=== PATIENT | male | born 1945 | race Caucasian/White ===

== ENCOUNTER 2017-03-20 13:47 | Inpatient (IN) | payer MEDICARE, OTHER ==
[2017-03-20] MEDS ORDERED: Propofol 1,000 MG/100 ML VIAL IV ONE (14:04)
[2017-03-20 14:10] LABS: Hematocrit 35.2 % (42.0-52.0); Mean Platelet Volume 8.4 fL (7.4-10.4); Red Blood Cell (RBC) Count 3.37 mill/uL (4.70-6.10); White Blood Cell (WBC) Count 20.6 thou/uL (4.8-10.8)
[2017-03-20 14:19] LABS: Bilirubin Small (Negative); Blood, Urine Trace (Negative); Glucose, Urine (Dipstick) 500 mg/dL (Negative); Ketone, Urine Negative (Negative); Nitrite Negative (Negative); Protein, Urine (Dipstick) Trace mg/dL (Neg-Trace); Urobilinogen 0.2 mg/dL (0.2-1.0)
[2017-03-20 14:22] LABS: Bacteria/HPF 4+ HPF (None Seen); Hyaline Casts/LPF 0-3 HYALINE CAST LPF (0-3 Hyaline); Squamous Epithelial None Seen HPF (0-3); WBC/HPF 0-3 HPF (0-3)
[2017-03-20 14:23] LABS: Lactic Acid - Sepsis 3.8 mmol/L (0.5-2.2)
[2017-03-20] MEDS ORDERED: Acetaminophen 650 MG Suppository ONE (14:30)
[2017-03-20] MEDS ORDERED: Furosemide 40 MG/4 ML VIAL ONE (14:30)
[2017-03-20 14:33] LABS: ALT (SGPT) 26 U/L (8-55); AST (SGOT) 65 U/L (5-34); Alkaline Phosphatase 146 U/L (40-150); Anion Gap 20 mmol/L (10-20); BUN (Urea Nitrogen) 59 mg/dL (8.4-25.7); Bilirubin, Total 0.8 mg/dL (0.2-1.2); CK (CPK) 3991 U/L (30-200); Calc. Creatinine Clearance 0 mL/min (70-130); Calcium 8.3 mg/dL (7.8-10.44); Carbon Dioxide 17 mmol/L (23-31); Chloride 102 mmol/L (98-107); Estimated GFR-MDRD 23; Globulin 2.9 g/dL (2.4-3.5); Protein, Total 6.3 g/dL (5.8-8.1)
[2017-03-20 14:34] LABS: Anisocytosis SLIGHT = 6-15 cells (100X) (0-5/hpf); Band 28 % (5-11); Macrocytosis SLIGHT = 6-15 cells (100X) (0-5/hpf); Metamyelocyte 9 % (0-0); Neutrophil 50 % (42-75); Polychromasia SLIGHT = 2-3 cells (100X) (0-2/hpf)
[2017-03-20 14:37] LABS: Troponin I 0.057 ng/mL (< 0.028)
[2017-03-20] MEDS ORDERED: Dextrose 50% Abboject 50 ML SYRINGE ONE (14:44)
[2017-03-20] MEDS ORDERED: Aspirin 300 MG Suppository ONE (14:44)
[2017-03-20] MEDS ORDERED: Insulin Regular 300 UNITS/3 ML VIAL ONE (14:44)
[2017-03-20 14:47] LABS: Oxyhemoglobin 86.9 % (94.0-97.0); Sodium 134 mmol/L (135-148)
[2017-03-20 14:50] LABS: Mechanical Tidal Volume 500 ml; Mode SIMV; Modified Allen's Test POSITIVE; Pressure Support 10 cmH2O; Vent YES
--- NOTE | 2017-03-20 14:50 | RAD ---
SUPINE PORTABLE CHEST ONE VIEW: History: 72-year-old male with dyspnea and difficulty breathing for two days. Comparison: 03-17-17 FINDINGS: Endotracheal tube is in satisfactory location in the distal trachea approximately 6 cm above the leve l of the tano. The NG tube has not yet passed into the stomach and probably needs to be advanced up to approximately 15 cm to completely enter the stomach with the side hole. There is a large right pl eural effusion which has developed since the prior study. There appears to be some minimal associated right sided volume loss. The left chest appears clear. IMPRESSION: Endotracheal tube with the tip approximately 6 cm from the tano. NG tube is in the distal esophagus and probably needs to be advanced approximately 15 cm for the side hole to completely enter the stom ach. Large right pleural effusion developing since 03-17-17. The left lung is clear without evidence for acute edema or evidence for congestive heart failure. Findings were discussed with patient's nurse in the ER at 2:25 p.m. Sheldon CHU POS: [facility]
[2017-03-20 15:00] LABS: PTT 31.6 SEC (22.9-36.1); Prothrombin Time 15.8 SEC (12.0-14.7)
[2017-03-20] MEDS ORDERED: cefTRIAXone\\ROCEPHIN 2 GM in Sodium Chloride 0.9% 100 ML IVPB ONE (15:00)
--- NOTE | 2017-03-20 15:33 | CT ---
CT OF THE HEAD WITHOUT CONTRAST: Date: 03-20-17 Comparison: 07-12-16 History: Altered mental status, difficulty breathing, lethargy. Technique: Serial axial CT imaging at 5 mm intervals from vertex through the skull base without contr ast. FINDINGS: The imaged paranasal sinuses/mastoid air cells are well aerated. There is no displaced calvarial frac ture. There is no intracranial hemorrhage, midline shift, mass effect or ventricular enlargement. IMPRESSION: No intracranial hemorrhage or displaced calvarial fracture. POS: [facility]
[2017-03-20] MEDS ORDERED: Sodium Bicarb 50 MEQ/50 ML Abboject 8.4% SYRINGE ONE (15:34)
[2017-03-20] MEDS ORDERED: Albuterol Sulfate 2.5 mg/3 ml Neb ONE (15:36)
[2017-03-20] MEDS ORDERED: Albuterol Sulfate 2.5 mg/0.5 ml Neb ONE (15:36)
[2017-03-20] MEDS ORDERED: Fentanyl 20 MCG/ML 250 ML ONE (15:55)
--- NOTE | 2017-03-20 15:56 | CT ---
NONCONTRAST ENHANCED CT IMAGES CHEST: History: Patient with tonsillectomy. Resection. Dyspnea. FINDINGS: Noncontrast enhanced CT of the chest demonstrates coronary artery calcifications. The nasogastric tub e is in place. Distal tip in the distal to midesophagus. This needs to be advanced approximately 10-1 5 cm to be in optimum position. There is extensive and near complete consolidation and partial collapse of the right lower lobe. The right middle lobe and right upper lobe are well aerated. The left lung is unremarkable. There appears to be an area of hyperdensity in the gallbladder neck compatible with gallstones with d iameter measuring approximately 7 mm. The liver and spleen are unremarkable. The pancreas is unremark able. IMPRESSION: 1. Gallstone seen in the gallbladder neck. 2. Complete consolidation and extensive collapse of the right lower lobe compatible with right lower lobe pneumonia. POS: [facility]
[2017-03-20] MEDS ORDERED: Acetaminophen 650 MG Suppository PR PRN (16:39)
[2017-03-20] MEDS ORDERED: Lacri-Lube Opth Oint 3.5 GM TUBE EA EYE PRN (16:39)
[2017-03-20] MEDS ORDERED: Sedation Protocol FS ONE (16:39)
[2017-03-20] MEDS ORDERED: Bisacodyl 10 MG SUPP PR PRN (16:39)
[2017-03-20] MEDS ORDERED: RENALLY ADJUST ABX IVPB PRN (16:54)
[2017-03-20] MEDS ORDERED: Fentanyl 20 MCG/ML 250 ML IVPB SCH (17:01)
[2017-03-20] MEDS ORDERED: DISCONTINUE PREVIOUS NARCOTIC PAIN MEDICATIONS AND BENZODIAZEPINES FS SCH (17:01)
[2017-03-20] MEDS ORDERED: Lorazepam 2 MG/ML VIAL SLOW IVP PRN (17:01)
--- NOTE | 2017-03-20 17:11 | HP ---
DATE OF ADMISSION: 03/20/2017 PRIMARY CARE PHYSICIAN: Tejas Maxwell D.O. CODE STATUS: FULL CODE. SURROGATE DECISION-MAKER: The patient makes his own decision with the help of his spouse. CHIEF COMPLAINT: Lethargy. HISTORY OF PRESENT ILLNESS: The patient is a 72-year-old male with coronary artery disease, diabetes mellitus type 2, peripheral vascular disease, chronic pain syndrome, and COPD, who was brought into the emergency room with above complaints. Three days ago, the patient developed pain in the right lower rib cage that started after sneezing. The pain progressively got worse. Over the last 24-48 hours, the patient has been lethargic and not eating well. He also developed shortness of breath along with wheezing. At this time, the patient i s intubated and sedated on mechanical ventilation. History was obtained from the family at the [facility]. There was no fever or chills reported. He has some intermittent cough with scanty production. No recent immobilization, travel reported. In the emergency room, his initial vital signs showed temperature of 100.6 with respiration of 36, pu lse rate of 94, blood pressure of 164/59 with O2 saturation of 87% on room air. After O2 supplementa tion, his O2 sats continued to drop to 79%. He was subsequently intubated and placed on mechanical v entilation. His chest x-ray showed right-sided pleural effusion. He underwent a CT angiogram of the chest that showed right-sided pneumonia along with pleural effusion. He received 40 mg IV Lasix wit h IV fluids, insulin, D50, ceftriaxone. Initially, it was thought that the patient has congestive he art failure that is why he received Lasix per ER physician. PAST MEDICAL HISTORY: 1. Diabetes mellitus type 2. 2. Hyperlipidemia. 3. Coronary artery disease, status post myocardial infarction. 4. Peripheral vascular disease. 5. Carotid artery disease. 6. History of multiple sclerosis. 7. Hyperlipidemia. 8. Chronic pain syndrome. 9. Chronic obstructive pulmonary disease. 10. Hypertension. 11. Hyperlipidemia. 12. Benign prostatic hypertrophy. 13. 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 14. Depression. PAST SURGICAL HISTORY: 1. Femoral popliteal bypass in 2015. 2. Stent placement for peripheral arterial disease in 2009. 3. Left carotid endarterectomy. 4. Colon resection. 5. Tonsillectomy. 6. 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 7. Partial colectomy. 8. Left hip replacement. 9. Spine stimulator that was later removed secondary to not working. 10. Esophageal dilatation. 11. Carotid surgery earlier this year. ALLERGIES: No known drug allergies. CURRENT HOME MEDICATIONS: According to his clinic note: 1. Aspirin 325 mg twice a day. 2. Vitamin D3 2000 units daily. 3. Cymbalta 60 mg daily. 4. Glimepiride 4 mg twice a day. 5. Metformin 1000 mg b.i.d. 6. Actos 30 mg daily. 7. Plavix 75 mg daily. 8. Flomax 0.4 mg twice a day. 9. Lipitor 40 mg daily. SOCIAL HISTORY: The patient currently lives at home with his family. Ambulates with the help of a w alker. The patient is currently retired. Has a history of smoking. No alcohol or drug use. FAMILY HISTORY: Diabetes and stroke runs in his family. REVIEW OF SYSTEMS: Cannot be obtained from the patient due to current cognitive status. PHYSICAL EXAMINATION: VITAL SIGNS: As discussed above. GENERAL: A 72-year-old male, intubated and sedated on mechanical ventilation. HEENT: Head, atraumatic, normocephalic. Sclerae are anicteric. Dry mucous membranes. No oral lesi on. NECK: Supple, no JVD appreciated. No carotid bruit. LUNGS: Showed decreased air entry at the right half of the lung with crackles. No wheezing on the l eft side. There were scattered rhonchi on the right. Symmetrical. HEART: S1, S2 present, regular, 2/6 systolic murmur over the mitral area. No heaves or pulsation. ABDOMEN: Soft, bowel sounds present, no rebound, guarding, no costovertebral angle tenderness. EXTREMITIES: 2+ edema in bilateral lower extremities. SKIN: Warm and dry. LYMPH NODES: No palpable lymph nodes in the neck. PERIPHERAL VASCULAR: Radial pulses palpable bilaterally. MUSCULOSKELETAL: No joint swelling or tenderness. NEUROLOGIC/PSYCHIATRIC: Cannot assess due to current cognitive status. LABORATORY AND X-RAY FINDINGS: 1. CBC showed WBC 20.6 with hemoglobin 11.4, hematocrit 35.2, platelets 217. 2. INR 1.2. 3. Blood gases showed pH 7.25 with pCO2 of 51.5, pO2 of 68.9, with O2 saturation 89.7% on mechanical ventilation. 4. Chemistries showed sodium 133, potassium 6.2, chloride 102, bicarbonate 17, BUN 59, creatinine 2. 7, glucose of 407. 5. CK was 3991. BNP was 232. Troponin was 0.057. Lactic acid 3.8. Urinalysis showed 4+ bacteria without any wbc's. 6. EKG by my review showed sinus rhythm with incomplete right bundle branch block, nonspecific ST-T wave changes. CT scan of the brain was negative. Chest x-ray by my review as discussed above. CT s can of the chest has been done, official report pending at this time. IMPRESSION: 1. Acute hypoxic respiratory failure. 2. Toxic metabolic encephalopathy. 3. Community-acquired pneumonia with pleural effusion, rule out hemothorax. 4. Metabolic acidosis/lactic acidosis. 5. Acute kidney injury on chronic kidney disease stage 2. 6. Hyperkalemia secondary to acute kidney injury with metabolic acidosis. 7. Rhabdomyolysis. 8. Abnormal troponins, probably secondary to demand ischemia. 9. Severe sepsis with acute organ dysfunction secondary to pneumonia. 10. Hyponatremia, probably secondary to hyperglycemia. 11. Peripheral vascular disease. 12. Diabetes mellitus type 2. 13. Hypertension. 14. Anxiety/depression. 15. Peripheral neuropathy. 16. Chronic pain syndrome. 17. Hyperlipidemia. 18. Gastroesophageal reflux disease. 19. Coronary artery disease. 20. Peripheral vascular disease. 21. Carotid artery disease. 22. Benign prostatic hypertrophy. 23. Chronic obstructive pulmonary disease. PLAN: 1. The patient will be monitored in the intensive care unit setting. Antiplatelet will be held for possible hemothorax. We will monitor the H&H closely. He will be placed on broad-spectrum antibioti cs. Blood cultures have been sent. Critical Care, Dr. Sanderson, has been notified. His blood pressu re is controlled at this time. If he develops hypotensive, we will consider stress dose steroids. V entilation sedation protocol. 2. Deep venous thrombosis prophylaxis. We will avoid SCDs due to peripheral vascular disease. We w ill also avoid heparin or Lovenox due to suspected hemothorax. The patient will also need Speech The rapy consult to rule out swallowing difficulty once extubated. He is currently on regular consistenc y diet with some intermittent choking-like sensation according to the family at the bedside. The pat ient will require 3-4 days for stabilization.
[2017-03-20 17:43] LABS: Hematocrit 31.1 % (42.0-52.0)
[2017-03-20] MEDS: Piperacillin/Tazobactam 2.25 GM in Sodium Chloride 0.9% 100 ML IVPB SCH ×2 (18:25→23:44)
[2017-03-20 18:41] LABS: Anion Gap 19 mmol/L (10-20); BUN (Urea Nitrogen) 62 mg/dL (8.4-25.7); BUN/Creatinine Ratio 23.31; Calc. Creatinine Clearance 34 mL/min (70-130); Calcium 7.9 mg/dL (7.8-10.44); Carbon Dioxide 19 mmol/L (23-31); Chloride 101 mmol/L (98-107); Estimated GFR-MDRD 24; Magnesium 2.3 mg/dL (1.6-2.6); Phosphorus 7.2 mg/dL (2.3-4.7)
[2017-03-20 18:47] LABS: Troponin I 0.073 ng/mL (< 0.028)
[2017-03-20] MEDS: Azithromycin 500 MG in Sodium Chloride 0.9% 250 ML 250 ML IVPB SCH (19:13)
[2017-03-20] MEDS ORDERED: Diprivan 20 ML ONE (19:26)
[2017-03-20] MEDS: Sodium Bicarbonate 50 MEQ in Sodium Chloride 0.45% 1,000 ML IV SCH (19:42)
[2017-03-20] MEDS: Propofol 1,000 MG/100 ML VIAL IV PRN (19:43)
[2017-03-20] MEDS: Insulin Regular 300 UNITS/3 ML VIAL SC PRN ×2 (19:58→23:40)
[2017-03-20 21:08] LABS: Hematocrit 30.2 % (42.0-52.0)
[2017-03-20] MEDS: Famotidine/PF 20 mg/2ml Vial SLOW IVP SCH (21:27)
[2017-03-20 21:32] LABS: Troponin I 0.059 ng/mL (< 0.028)
--- NOTE | 2017-03-20 21:53 | CON ---
DATE OF CONSULTATION: 03/20/2017 SERVICE: Pulmonary Medicine. REASON FOR CONSULTATION: Respiratory failure. HISTORY OF PRESENT ILLNESS: The patient is a 72-year-old white male. He was in his usual state of h ealth until roughly 3 days ago at which point he had a sneezing event. With this sneeze, he had an a brupt onset of very sharp chest discomfort. It was in nature. He came to the emergency depart ment thinking that he broke his rib. He had a chest x-ray at that time which really was fairly unrem arkable. He went back home with conservative management. He had exquisite tenderness over the site. It prevented him from taking a deep breath. He could not lie in his right side and he had difficult ies lying on his back. Two days ago, he started having increasing dyspnea with exertion. He had luli e low-grade temperatures. One day prior to admission, these symptoms progressed. This morning, he w as found essentially gurgling his secretions. He is completely obtunded and nonresponsive. He was b rought to the emergency department. He had purulent material in his posterior oropharynx. He was wiley bsequently intubated. No sedation medications have been provided so far because he simply has not ne eded anything yet. He cannot provide any additional elements of the history. His is at bedside and she was able to relay this to me. PAST MEDICAL HISTORY: 1. Type 2 diabetes mellitus. 2. Multiple sclerosis. 3. Dyslipidemia. 4. Peripheral vascular disease. 5. Carotid arterial disease. 6. Opioid abuse, history of. PAST SURGICAL HISTORY: 1. Left carotid endarterectomy in 2010. 2. Redo left carotid endarterectomy. 3. Left femoral vein bypass. 4. Percutaneous coronary intervention. FAMILY HISTORY: Noncontributory. SOCIAL HISTORY: Up until recently, he was smoking on a daily basis. He does use alcohol occasionall y. His denies any street drugs on his behalf. He has not had any significant asbestos exposure s. ALLERGIES: No known drug allergies. MEDICATIONS: List of his inpatient medications was reviewed. Multiple small updates were made. REVIEW OF SYSTEMS: Cannot be obtained as the patient is currently intubated and sedated. PHYSICAL EXAMINATION: VITAL SIGNS: Afebrile, pulse 75, respirations 21, saturation 98% on 60% FiO2. GENERAL: The patient is intubated and sedated. HEENT: Normocephalic, atraumatic. Sclerae are white, conjunctivae pink. Oral and nasal mucosa mois t without lesions. LUNGS: Decent air entry. There is a slightly prolonged expiratory phase. Rhonchi are present in th e right side. No wheezing is appreciated. HEART: Normal rate, regular. ABDOMEN: Soft, nontender, nondistended. Bowel sounds positive. MUSCULOSKELETAL: No cyanosis or clubbing. There is no pitting in the bilateral lower extremities. NEUROLOGIC: Grossly nonfocal. LABORATORY DATA: WBC 20.6, hemoglobin 11.4, platelets were 217,000. Band counts are 28%. INR 1.2. PH 7.25, pCO2 52, pO2 68.9. FIO2 is 55% on this ABG. Creatinine 2.70. BUN 59, bicarbonate 17 with an anion gap of 20. Potassium 6.2. Liver function studies are unremarkable. CK 3900. BNP 232. T roponin 0.057. Lactate is 3.8. Urinalysis is unremarkable. IMAGIN. Chest x-ray from three days ago demonstrates no acute cardiopulmonary abnormality. 2. Chest x-ray from today demonstrates large pleural effusion on the right side with an apparent lay ering effusion on top of that giving an increased density to the right lung. The left lung looks to be relatively spared. 3. CT of the brain demonstrates no acute intracranial abnormality. 4. CT of the chest demonstrates gallstone in the neck of the gallbladder. There is a complete conso lidation of the posterior segment of the right upper lobe, lateral segment of the right middle lobe, and the entirety of the right lower lobe. There is some degree of effusion there. The effusion appe ars to have an increased density to it over just a simple effusion. There is some loculation to this already. ASSESSMENT: 1. Acute hypoxic respiratory failure. 2. Severe sepsis. 3. Community-acquired pneumonia. 4. Acute kidney injury. 5. Hyperkalemia. 6. Anion gap metabolic acidosis. 7. History of opiate abuse. PLAN: We will provide the patient with a little bit of sedation. Antibiotics will be given to the p atient to cover both community-acquired and aspiration related organisms. I have already talked to Jovita Carpio about initiating Zosyn and azithromycin. There appear to be loculations present. He is on b oth aspirin and Plavix. As such, I am a little hesitant to perform a thoracentesis presently. It ma y confirm my suspicion that empyema is present, but I certainly would not be able to prevent one from setting in at this time. Supportive ventilator will be continued. We will get a daily chest x-ray for the time being. If this effusion continues to increase, thoracentesis will be performed sooner t ravi later. Otherwise, I agree with her current supportive care. I would hold off antiplatelet thera py for the time being. CRITICAL CARE TIME: 45 minutes.
[2017-03-20] MEDS ORDERED: Piperacillin/Tazobactam 3.375 GM in Sodium Chloride 0.9% 100 ML IVPB SCH (22:00)
[2017-03-21] MEDS: Sodium Bicarbonate 50 MEQ in Sodium Chloride 0.45% 1,000 ML IV SCH ×3 (01:54→20:11)
[2017-03-21] MEDS: Propofol 1,000 MG/100 ML VIAL IV PRN ×2 (01:54→16:12)
[2017-03-21] MEDS: Insulin Regular 300 UNITS/3 ML VIAL SC PRN ×5 (04:06→20:31)
[2017-03-21] MEDS: Piperacillin/Tazobactam 2.25 GM in Sodium Chloride 0.9% 100 ML IVPB SCH ×3 (05:40→18:25)
[2017-03-21 06:00] LABS: Band 47 % (5-11); Hematocrit 28.2 % (42.0-52.0); Neutrophil 44 % (42-75); White Blood Cell (WBC) Count 11.8 thou/uL (4.8-10.8)
[2017-03-21 06:08] LABS: CK (CPK) 6321 U/L (30-200)
[2017-03-21 06:29] LABS: Anion Gap 15 mmol/L (10-20); BUN (Urea Nitrogen) 64 mg/dL (8.4-25.7); BUN/Creatinine Ratio 28.32; Calc. Creatinine Clearance 39 mL/min (70-130); Calcium 7.7 mg/dL (7.8-10.44); Carbon Dioxide 22 mmol/L (23-31); Chloride 103 mmol/L (98-107); Estimated GFR-MDRD 29; Phosphorus 4.5 mg/dL (2.3-4.7)
[2017-03-21 07:40] LABS: Oxyhemoglobin 91.1 % (94.0-97.0); Sodium 135 mmol/L (135-148)
[2017-03-21 08:16] LABS: Mechanical Tidal Volume 500 ml; Mode PSIMV; Modified Allen's Test POSITIVE; Pressure Support 10 cmH2O; Vent YES
--- NOTE | 2017-03-21 08:35 | ULT ---
GALLBLADDER ULTRASOUND: History: Evaluate for cholecystitis. Abnormal chest CT. Comparison: None. Correlation: Chest CT 03-20-17. Technique: Utilizing multihertz transducer, sonographic imaging of the right upper quadrant was perfo rmed. FINDINGS: Limited evaluation of the pancreas due to bowel gas. Hepatic parenchyma has a normal echotexture. No hepatic masses or intrahepatic dilatation. The contou r of the hepatic margin is maintained. Right hepatic lobe measures 17.8 cm. There are multiple echogenic foci with posterior acoustic shadowing in the neck of the gallbladder, c ompatible with gallstones. Small amount of sludge is noted. Gallbladder wall this not thickened. No p ericholecystic fluid. Phan's sign cannot be interrogated due to patient being intubated. Limited evaluation of the right kidney. Lower pole is obscured. Grossly, no hydronephrosis. Common bile duct is poorly defined. IMPRESSION: Sonographic evidence of cholelithiasis without evidence of cholecystitis. POS: [facility]
--- NOTE | 2017-03-21 09:23 | RAD ---
SEMIURIGHT FRONTAL CHEST RADIOGRAPH: DATE: 03/21/17. COMPARISON: 03/20/17. HISTORY: Intubated CCU patient. FINDINGS: Endotracheal tube terminates over the tracheal air column just below the level of the clavicular head s. There is a nasogastric tube in place. As seen on the prior examination, the nasogastric tube does no t appear to extend beyond the mid portion of the chest. It was noted on the radiograph dictated on 05/20/16 at approximately 2:10 p.m. that this nasogastric tube [facility]. The nasogastric tube appears to be redundant overlying the neck suggesting it is curling in the upper aerodigestive tract at the level of the neck. The right lung appears clear. There is hazy increased density within the left hemithorax, primarily involving the right lung base, evidence of a right-sided pleural effusion and associated basilar pare nchymal opacity. IMPRESSION: 1. Nasogastric tube is in a stable position, distal tip in the expected location of the mid thoracic esophagus. Again, this should be advanced. 2. Stable right basilar pleural and parenchymal opacity. POS: [facility]
[2017-03-21] MEDS: NPH, Human Insulin Isophane 300 UNIT/3 ML VIAL SC SCH (10:02)
[2017-03-21 11:07] LABS: Hemoglobin A1c 7.8 % (4.0-6.0)
[2017-03-21] MEDS: Acetaminophen 650 MG/20.3 ML UDCUP PO PRN (12:38)
--- NOTE | 2017-03-21 14:11 | PDOC.PN ---
- Subjective Encounter Start Date: 03/21/17 Encounter Start Time: 10:00 -: non-verbal Patient seen and examined. On [facility] Vent. No overnight events - Objective MAR Reviewed: Yes Vital Signs & Weight: Vital Signs (12 hours) Temp Pulse Resp BP Pulse Ox 03/21/17 14:00 7 L 03/21/17 13:00 100.8 F H 03/21/17 12:00 101 F H 13 03/21/17 10:47 102 H 143/59 H 03/21/17 10:46 100 11 L 96 03/21/17 10:00 13 03/21/17 08:00 100.3 F H 102 H 22 H 96 03/21/17 07:00 100.3 F H 03/21/17 06:47 92 114/51 L 03/21/17 06:46 94 22 H 95 03/21/17 06:00 21 H 03/21/17 04:00 98.7 F 21 H 03/21/17 02:29 87 120/41 L Weight Admit Weight 211 lb Weight 215 lb Most Recent Monitor Data Heart Rate from ECG 101 NIBP 140/53 NIBP BP-Mean 81 Respiration from ECG 13 SpO2 95 I&O: 03/20/17 03/21/17 03/22/17 06:59 06:59 06:59 Intake Total 2109 30.8 Output Total 1380 640 Balance 729 -609.2 Result Diagrams: 03/22/17 04:14 03/22/17 04:14 Additional Labs: Accuchecks 03/21/17 03/21/17 03/21/17 12:54 08:47 03:58 POC Glucose 302 H 370 H 468 H 03/20/17 03/20/17 23:38 19:54 POC Glucose 538 H 524 H Radiology Reviewed by me: Yes (CR - infiltrate at bases) EKG Reviewed by me: Yes (Tele SR) Phys Exam - Physical Examination Patient on [facility] vent - sedation dced Neck: no nodes, no JVD Respiratory: no wheezing Bibasilar rales R>L, Symmetrical. Scat rhonchi Cardiovascular: RRR, no rub Gastrointestinal: soft, non-tender, no distention, positive bowel sounds hanna + Musculoskeletal: edema present (! +) Neuro/Psych - cannot assess due to sedation Dx/Plan - Plan cont current plan of care, plan discussed w/ family, hanna catheter, continue antibiotics, DVT proph w/SCDs IMPRESSION: 1. Acute hypoxic respiratory failure. on Mech Vent 2. Toxic metabolic encephalopathy. 3. Community-acquired pneumonia with pleural effusion, rule out hemothorax. 4. Metabolic acidosis/lactic acidosis. 5. Acute kidney injury on chronic kidney disease stage 2. improving. 6. Hyperkalemia secondary to acute kidney injury with metabolic acidosis. improving. 7. Rhabdomyolysis. CK worsening 8. Abnormal troponins, probably secondary to demand ischemia. 9. Severe sepsis with acute organ dysfunction secondary to pneumonia. 10. Hyponatremia, probably secondary to hyperglycemia. 11. Peripheral vascular disease. 12. Diabetes mellitus type 2. 13. Hypertension. 14. Anxiety/depression. 15. Peripheral neuropathy. 16. Chronic pain syndrome. 17. Hyperlipidemia. 18. Gastroesophageal reflux disease. 19. Coronary artery disease. 20. Peripheral vascular disease with stent 21. Carotid artery disease with stent 22. Benign prostatic hypertrophy. 23. Chronic obstructive pulmonary disease. 24. PLAN: * Cont supportive care * Resume ASA/Plavix if ok with Critical care (?Hemothorax) * AM labs including CK * Cont Atbx * Critical care following * Cont current IV fluids * Cont current meds as below * Sedation protocol Review of Systems - Review of Systems Other: Cannot obtain due to sedation - Medications/Allergies Allergies/Adverse Reactions: Allergies Allergy/AdvReac Type Severity Reaction Status Date / Time No Known Allergies Allergy Verified 08/08/16 08:56 Medications: Current Medications Acetaminophen (Tylenol) 650 mg DC Q6H PRN PRN Reason: Fever > 101 or Mild Pain Acetaminophen (Tylenol Elixir) 650 mg PO Q6H PRN PRN Reason: Fever > 101 or Mild Pain Last Admin: 03/21/17 12:38 Dose: 650 mg Albuterol/Ipratropium (Duoneb) 3 ml NEB [id number] MIKE Last Admin: 03/21/17 10:46 Dose: 3 ml Albuterol/Ipratropium (Duoneb) 3 ml NEB [id number] PRN PRN Reason: SOB &/or Wheezing Bisacodyl (Dulcolax) 10 mg DC DAILYPRN PRN PRN Reason: Constipation Famotidine (Pepcid) 20 mg SLOW IVP Q24HR MIKE Last Admin: 03/20/17 21:27 Dose: 20 mg Azithromycin 500 mg/ Sodium (Chloride) 250 mls @ 250 mls/hr IVPB 1700 MIKE Last Admin: 03/20/17 19:13 Dose: 250 mls Vancomycin HCl 1 gm/ Device 200 mls @ 200 mls/hr IVPB 1500 MIKE Fentanyl (Fentanyl Cadd) 250 mls @ 0 mls/hr IVPB INF MIKE; Titrate PRN Reason: Protocol Stop: 04/19/17 17:01 Fentanyl Citrate (Fentanyl Bolus) 250 mls @ 0 mls/hr IVPB PRN PRN; As Directed PRN Reason: VENTILATION SEDATION PROTOCOL Stop: 04/19/17 17:01 Sodium Bicarbonate 50 meq/ (Sodium Chloride) 1,050 mls @ 150 mls/hr IV .Q7H [facility] Last Admin: 03/21/17 11:35 Dose: 1,050 mls Piperacillin Sod/Tazobactam (Sod 2.25 gm/ Sodium Chloride) 100 mls @ 200 mls/ hr IVPB Q6HR [facility] Last Admin: 03/21/17 12:38 Dose: 100 mls Insulin Human NPH (Humulin N) 10 unit SC DAILY [facility] Last Admin: 03/21/17 10:02 Dose: 10 unit Insulin Human NPH (Humulin N) 10 unit SC QPM [facility] Insulin Human Regular (Humulin R) 0 units SC .MODERATE SLIDING SC PRN PRN Reason: Moderate Correctional Scale Lactulose (Lactulose) 20 gm PO DAILYPRN PRN PRN Reason: Constipation Lorazepam (Ativan) 2 mg SLOW IVP Q2H PRN PRN Reason: Anxiety to achieve Griffiths 2-3 Stop: 04/19/17 17:01 Mineral Oil/White Petrolatum (Lacri-Lube Ointment) 0 gm EA EYE PRN PRN PRN Reason: Dry Eyes Miscellaneous Medication (Pharmacy To Dose) 1 each IVPB PRN PRN PRN Reason: Pharmacy to dose Morphine Sulfate (Morphine) 2 mg IVP Q2H PRN PRN Reason: TO ACHIEVE SALVATORE SCORE 2-3 Stop: 04/19/17 17:01 Discontinue Previous Narcotic Pain Medications And Benzodiazepines 1 each FS .ONE [facility] Stop: 04/19/17 17:01 Ondansetron HCl (Zofran) 4 mg IVP Q6H PRN PRN Reason: Nausea/Vomiting Propofol (Diprivan) 1,000 mg IV INF PRN; Protocol PRN Reason: TO ACHIEVE GRIFFITHS SCORE 2-3 Stop: 04/19/17 17:01 Last Admin: 03/21/17 01:54 Dose: 1,000 mg Sodium Chloride (Flush - Normal Saline) 10 ml IVF Q12HR MIKE Last Admin: 03/21/17 08:42 Dose: 10 ml Sodium Chloride (Flush - Normal Saline) 10 ml IVF PRN PRN PRN Reason: Saline Flush
[2017-03-21] MEDS ORDERED: Vancomycin HCl 1 GM in Premix Bag 1 BAG IVPB SCH (15:00)
[2017-03-21] MEDS: Azithromycin 500 MG in Sodium Chloride 0.9% 250 ML 250 ML IVPB SCH (17:22)
[2017-03-21] MEDS: Famotidine/PF 20 mg/2ml Vial SLOW IVP SCH (20:31)
[2017-03-21] MEDS ORDERED: NPH, Human Insulin Isophane 300 UNIT/3 ML VIAL SC SCH (21:00)
--- NOTE | 2017-03-21 21:50 | PRG ---
DATE OF SERVICE: 03/21/2017 SERVICE: Pulmonary Medicine. INTERVAL HISTORY: The patient is doing fine from a respiratory standpoint. His oxygen requirements had dramatically improved over the last 24 hours. He cannot provide me any additional elements of th e history as he is under the influence of some sedating medication. I gave him a very long sedation holiday. He also did very well on a spontaneous breathing trial. That being said, his mentation nev er really came around. As such, he was put back on mechanical ventilation and we will try again eugenio rrow. PHYSICAL EXAMINATION: VITAL SIGNS: Afebrile currently with a T-max of 101.0, pulse 87, blood pressure 131/54, respirations 12, saturation 94% on 31% FiO2. GENERAL: Patient is somnolent. He will fall back asleep within 3 seconds with no stimulation. HEENT: Normocephalic, atraumatic. Sclerae white, conjunctivae pink. Oral and nasal mucosa is moist without lesions. LUNGS: Decent air entry bilaterally. There were rhonchi on the right. No prolonged expiratory phas e or wheezing is appreciated. HEART: Normal rate, regular. ABDOMEN: Soft, nontender, nondistended. Bowel sounds: Soft. Tender to palpation. There is no elkin ound or guarding at this time. NEUROLOGIC: Grossly nonfocal. LABORATORY DATA: WBC 11.8, hemoglobin 9.6, platelets 168,000. INR 1.2. PH 7.35, pCO2 of 45, pO2 of 65. Creatinine 2.26 which is gently down trending. Basic metabolic profile is otherwise unremarkab le. Glucose 484. Hemoglobin A1c is 7.8, calcium 7.7. CK is up trending to 6300. Albumin 2.8, breanne isol 13.5. Lactic acid is down trending to 2.4. Urinalysis is essentially unremarkable. Blood cult ures x2, urine culture, and respiratory culture are all negative to date. IMAGIN. Abdominal ultrasound demonstrates sonographic evidence of cholelithiasis without acute inflammati on suggestive of cholecystitis. Gallstones and sludge are noted. Common bile duct was not identifie d. 2. Chest x-ray demonstrates an NG tube in good position. Stable right basilar and pleural parenchym al opacification. ASSESSMENT: 1. Acute hypoxic respiratory failure. 2. Severe sepsis. 3. Community-acquired pneumonia. 4. Acute kidney injury. 5. Hyperkalemia, resolved. 6. History of opiate abuse. DISCUSSION AND PLAN: We will continue our empiric antibiotics directed community acquired pathogens. His abdomen is much more distended today and appears to have some tenderness with palpation. The N G tube will be advanced slightly. He will be put on low intermittent suction. Tube feeds will not b e initiated today. I will repeat the labs today in the in the morning and this was trending upward, CT of the belly should be considered with acute abdominal issues. I performed an ultrasound of the right chest today. There is a pleural effusion evident but I could clearly identify significant loc ulations. The effusions is really quite dense. As such, he has made clinical recovery, evaluation f or empyema should be considered. He will remain on mechanical ventilation today because of his evolv ing abdominal changes and encephalopathy. Critical care time: 30 minutes.
[2017-03-22] MEDS: Insulin Regular 300 UNITS/3 ML VIAL SC PRN ×6 (00:17→23:52)
[2017-03-22] MEDS: Piperacillin/Tazobactam 2.25 GM in Sodium Chloride 0.9% 100 ML IVPB SCH ×5 (00:17→23:50)
[2017-03-22] MEDS: Sodium Bicarbonate 50 MEQ in Sodium Chloride 0.45% 1,000 ML IV SCH ×2 (02:49→11:00)
[2017-03-22 06:00] LABS: #Lymphocytes 0.9 thou/uL (1.20-3.40); #Monocytes 0.6 thou/uL (0.11-0.59); #Neutrophils 6.2 thou/uL (1.40-6.50); %Lymphocytes 11.4 % (21.0-51.0); %Monocytes 7.4 % (0.0-10.0); Hematocrit 27.3 % (42.0-52.0); Mean Platelet Volume 8.2 fL (7.4-10.4); Red Blood Cell (RBC) Count 2.61 mill/uL (4.70-6.10); White Blood Cell (WBC) Count 7.6 thou/uL (4.8-10.8)
[2017-03-22 06:10] LABS: Anion Gap 12 mmol/L (10-20); BUN (Urea Nitrogen) 44 mg/dL (8.4-25.7); Calc. Creatinine Clearance 73 mL/min (70-130); Calcium 7.8 mg/dL (7.8-10.44); Carbon Dioxide 27 mmol/L (23-31); Chloride 106 mmol/L (98-107); Estimated GFR-MDRD 57; Magnesium 2.5 mg/dL (1.6-2.6); Phosphorus 2.5 mg/dL (2.3-4.7)
[2017-03-22 06:26] LABS: CK (CPK) 12210 U/L (30-200)
[2017-03-22] MEDS: Propofol 1,000 MG/100 ML VIAL IV PRN ×2 (07:22→18:39)
[2017-03-22] MEDS: NPH, Human Insulin Isophane 300 UNIT/3 ML VIAL SC SCH ×2 (09:00→13:51)
[2017-03-22 10:59] LABS: Band 50 % (5-11); Metamyelocyte 3 % (0-0); Nucleated RBC 1 % (0)
--- NOTE | 2017-03-22 11:06 | RAD ---
PORTABLE AP CHEST; Date: 03/22/17 HISTORY: Daily follow-up. Patient on ventilator. COMPARISON: 03/21/17. FINDINGS: Multiple groundwater monitoring technician leads again overlie the chest. Endotracheal tube and nasogastric tubes are d ifficult to evaluate on this exam, and the nasogastric tube cannot be visualized coursing into the up per abdomen and appears to terminate at the level of the mid chest, which was also noted on the prior exam. Pleural and parenchymal changes are again seen at the right lung base, likely related to moder ate size right pleural effusion and atelectasis. There has been interval increase in interstitial and parenchymal opacities within the right mid and upper lung field suggesting worsening pneumonia. Left lung is clear, although there is question of a tiny left pleural effusion. Cardiac silhouette is wit hin normal limits. No other interval change. IMPRESSION: 1. Nasogastric tube again appears to terminate at the level of the mid to lower chest and does not e xtend into the upper abdomen. 2. Moderate right pleural effusion and atelectasis. 3. Increase in interstitial and parenchymal opacities within the right upper and right mid lung zone s, which is worrisome for worsening pneumonia or asymmetric pulmonary edema. Continued close interval follow-up is recommended. POS: SHEREE
[2017-03-22] MEDS ORDERED: Lidocaine 1% (PF) 30 ML VIAL ONE (11:17)
--- NOTE | 2017-03-22 11:26 | RAD ---
SUPINE ABDOMINAL RADIOGRAPH: Date: 03/22/17 HISTORY: Abdominal tenderness. Patient on ventilator. FINDINGS: Nasogastric tube is noted in place with tip overlying the expected location of the gastric fundus. Th ere is a small right pleural effusion. There are interstitial and parenchymal changes seen in the vis ualized right mid junior ng zone worrisome for infectious process/pneumonia. There are dilated loops of s mall bow4el seen in the left upper quadrant which may be related to either ileus or partial small bow el obstruction. Postsurgical changes left hip are partially visualized related to left total hip pros thesis. There are degenerative changes seen in the spine. Prominent facet hypertrophic changes are se en on the right at the lumbosacral junction. IMPRESSION: 1. Prominently dilated loops of small bowel in the left abdomen. Findings may be related to either i leus or partial small bowel obstruction. There are a few additional gas-filled loops of small bowel s een in the lower abdomen in the midline which are not dilated. 2. Nasogastric tube noted in place with tip overlying the gastric fundus. 3. Right pleural effusion with findings likely related to infectious process/pneumonia involving the right mid lung zone. POS: SHEREE
--- NOTE | 2017-03-22 12:56 | RAD ---
PORTABLE SUPINE FRONTAL CHEST RADIOGRAPH: Date: 03/22/17 COMPARISON: 03/17/17. HISTORY: Chest tube insertion. FINDINGS: There is a right-sided chest tube overlying the mid portion of the right hemithorax. There is an endotracheal tube and nasogastric tube in proper position. There is nonspecific air space disease throughout the right upper lobe. There is blunting of the cost ophrenic angle on the right suggesting right pleural fluid and/or pleural thickening. Left lung is relatively clear. Supine imaging limits assessment for pneumothorax and pleural fluid. IMPRESSION: 1. Nonspecific right upper lobe air space disease. Right pleura fluid and/or right pleural thickenin g. Right chest tube in place. 2. Stable endotracheal tube and nasogastric tube. POS: [facility]
[2017-03-22] MEDS: Sodium Chloride 0.45% 1,000 ML IV SCH (13:04)
--- NOTE | 2017-03-22 13:06 | CON ---
DATE OF CONSULTATION: 03/22/2017 REASON FOR CONSULTATION: Evaluate patient with right-sided effusion on the ventilator, sedated with respiratory failure. HISTORY OF PRESENT ILLNESS: Mr. Bennett is a 72-year-old gentleman well known to me from previous enco unters for peripheral vascular disease. He presented through the emergency department with a history of severe shortness of breath and hearing a pop in his chest with vigorous sneeze and cough. He had respiratory failure and was intubated, has been on the ventilator since. He has accumulated a right -sided pleural effusion while he has been here in the hospital. I have been asked to see him for fur ther management strategy. PAST MEDICAL HISTORY: 1. Type 2 diabetes mellitus. 2. Peripheral vascular disease. 3. Dyslipidemia. 4. Carotid artery disease. 5. History of opioid abuse in the distant past. 6. Current tobacco abuse. PAST SURGICAL HISTORY: 1. Left carotid endarterectomy followed by redo in 2016. 2. Left femoral artery bypass grafting. SOCIAL HISTORY: He smokes up to a pack and a half of cigarettes a day. He currently does not use an y opiates at home. ALLERGIES: None. REVIEW OF SYSTEMS: Not performed due to the patient being intubated and sedated. PHYSICAL EXAMINATION: GENERAL: This is a moderately obese gentleman resting comfortably under sedation on the ventilator. LUNGS: Have diminished breath sounds throughout. HEART: Rhythm is regular. There is no murmur. ABDOMEN: Obese, soft and nontender. EXTREMITIES: No edema. I have reviewed his chest x-rays and laboratory data. Current chest x-ray shows a right-sided pleura l effusion. LABORATORY DATA: Hemoglobin is 9.0, down from 11.4 at admission; white blood cell count is 7.6, plat elet count 141,000. Creatinine is 1.25, potassium is 4.4. ASSESSMENT AND PLAN: Right-sided pleural effusion. Of note, the patient does have flank ecchymosis on the right. I am wondering if maybe he fell or he has a fractured rib secondary to his vigorous co ugh, and sneeze. PROCEDURE: Right chest wall was prepped and draped in usual sterile fashion. Skin was anesthetized with 1% lidocaine. A skin incision was made, sharp dissection used in the right pleural cavity. Fin keon sweep was performed. There was a large amount of blood present in the patient's right chest. A 32 Indonesian chest tube was placed posteriorly in the right chest. Approximately 500 mL of blood was ev acuated with significant spillage on to the bed in addition. The tube was secured with silk suture a nd sterile dressings applied. The patient tolerated the procedure well. Follow up chest x-ray shows good placement of the tube with some residual fluid still present.
--- NOTE | 2017-03-22 15:51 | PDOC.PN ---
- Subjective Encounter Start Date: 03/22/17 Encounter Start Time: 10:30 -: non-verbal Patient seen and examined. On Vent. No overnight events - Objective MAR Reviewed: Yes Vital Signs & Weight: Vital Signs (12 hours) Temp Pulse Resp BP Pulse Ox 03/22/17 15:41 84 127/51 L 03/22/17 15:39 86 10 L 100 03/22/17 14:00 14 03/22/17 12:00 99.4 F 14 03/22/17 11:53 89 120/58 L 03/22/17 11:52 88 13 96 03/22/17 10:00 15 03/22/17 08:10 88 126/55 L 03/22/17 08:08 90 15 96 03/22/17 08:00 99.7 F H 12 03/22/17 06:00 11 L 03/22/17 04:00 99.0 F 13 Weight Admit Weight 211 lb Weight 216 lb 8 oz Most Recent Monitor Data Heart Rate from ECG 86 NIBP 127/51 NIBP BP-Mean 80 Respiration from ECG 13 SpO2 100 I&O: 03/21/17 03/22/17 03/23/17 06:59 06:59 06:59 Intake Total 2109 4679.9 732 Output Total 1380 3060 1110 Balance 729 1619.9 -378 Result Diagrams: 03/22/17 04:14 03/22/17 04:14 Additional Labs: Accuchecks 03/22/17 03/22/17 03/22/17 13:49 04:00 00:13 POC Glucose 178 H 206 H 229 H 03/21/17 03/21/17 20:19 16:40 POC Glucose 258 H 288 H EKG Reviewed by me: Yes (Tele SR) Phys Exam - Physical Examination Pt on mech Vent Bibasilar rales, Dec AE at Rt bases Cardiovascular: RRR, no rub Gastrointestinal: soft, no distention, positive bowel sounds gen tender+ Musculoskeletal: no edema, edema present Neuro/Psy - cannot assess due to sedation Dx/Plan - Plan cont current plan of care, plan discussed w/ family, hanna catheter, continue antibiotics IMPRESSION: 1. Acute hypoxic respiratory failure. on Mech Vent 2. Toxic metabolic encephalopathy. 3. Community-acquired pneumonia with pleural effusion, rule out hemothorax. ASA /Plavix on hold 4. Metabolic acidosis/lactic acidosis. 5. Acute kidney injury on chronic kidney disease stage 2. improving. 6. Hyperkalemia secondary to acute kidney injury with metabolic acidosis. improving. 7. Rhabdomyolysis. CK worsening 8. Abnormal troponins, probably secondary to demand ischemia. 9. Severe sepsis with acute organ dysfunction secondary to pneumonia. 10. Hyponatremia, probably secondary to hyperglycemia. 11. Peripheral vascular disease. 12. Diabetes mellitus type 2.- on sliding scale 13. Hypertension. 14. Anxiety/depression. 15. Peripheral neuropathy. 16. Chronic pain syndrome. 17. Hyperlipidemia. 18. Gastroesophageal reflux disease. 19. Coronary artery disease. 20. Peripheral vascular disease with stent 21. Carotid artery disease with stent 22. Benign prostatic hypertrophy. 23. Chronic obstructive pulmonary disease. PLAN: * On [facility] Vent * Critical care following * Cont supportive care * Resume ASA (Will resume Plavix if ok with Critical care) * AM labs including CK * Cont Atbx * IV fluids changed to 1/2 NS * Cont current meds as below * Cont Sedation protocol * Cont sliding scale * KUB due to Abd tenderness Review of Systems - Review of Systems Other: Cannot obtain due to sedation - Medications/Allergies Allergies/Adverse Reactions: Allergies Allergy/AdvReac Type Severity Reaction Status Date / Time No Known Allergies Allergy Verified 08/08/16 08:56 Medications: Current Medications Acetaminophen (Tylenol) 650 mg MI Q6H PRN PRN Reason: Fever > 101 or Mild Pain Acetaminophen (Tylenol Elixir) 650 mg PO Q6H PRN PRN Reason: Fever > 101 or Mild Pain Last Admin: 03/21/17 12:38 Dose: 650 mg Albuterol/Ipratropium (Duoneb) 3 ml NEB [id number] MIKE Last Admin: 03/22/17 15:39 Dose: 3 ml Albuterol/Ipratropium (Duoneb) 3 ml NEB [id number] PRN PRN Reason: SOB &/or Wheezing Aspirin (Aspirin Chewable) 81 mg PER TUBE DAILY MIKE Bisacodyl (Dulcolax) 10 mg MI DAILYPRN PRN PRN Reason: Constipation Famotidine (Pepcid) 20 mg SLOW IVP Q24HR MIKE Last Admin: 03/21/17 20:31 Dose: 20 mg Azithromycin 500 mg/ Sodium (Chloride) 250 mls @ 250 mls/hr IVPB 1700 MIKE Last Admin: 03/21/17 17:22 Dose: 250 mls Fentanyl (Fentanyl Cadd) 250 mls @ 0 mls/hr IVPB INF MIKE; Titrate PRN Reason: Protocol Stop: 04/19/17 17:01 Fentanyl Citrate (Fentanyl Bolus) 250 mls @ 0 mls/hr IVPB PRN PRN; As Directed PRN Reason: VENTILATION SEDATION PROTOCOL Stop: 04/19/17 17:01 Piperacillin Sod/Tazobactam (Sod 2.25 gm/ Sodium Chloride) 100 mls @ 200 mls/ hr IVPB Q6HR MIKE Last Admin: 03/22/17 13:05 Dose: 100 mls Sodium Chloride (1/2 Normal Saline) 1,000 mls @ 75 mls/hr IV .[id number] MIKE Last Admin: 03/22/17 13:04 Dose: 1,000 mls Insulin Human NPH (Humulin N) 10 unit SC DAILY MIKE Last Admin: 03/22/17 13:51 Dose: 10 unit Insulin Human Regular (Humulin R) 0 units SC .MODERATE SLIDING SC PRN PRN Reason: Moderate Correctional Scale Last Admin: 03/22/17 13:51 Dose: 2 unit Lactulose (Lactulose) 20 gm PO DAILYPRN PRN PRN Reason: Constipation Lorazepam (Ativan) 2 mg SLOW IVP Q2H PRN PRN Reason: Anxiety to achieve Griffiths 2-3 Stop: 04/19/17 17:01 Mineral Oil/White Petrolatum (Lacri-Lube Ointment) 0 gm EA EYE PRN PRN PRN Reason: Dry Eyes Miscellaneous Medication (Pharmacy To Dose) 1 each IVPB PRN PRN PRN Reason: Pharmacy to dose Morphine Sulfate (Morphine) 2 mg IVP Q2H PRN PRN Reason: TO ACHIEVE SALVATORE SCORE 2-3 Stop: 04/19/17 17:01 Ondansetron HCl (Zofran) 4 mg IVP Q6H PRN PRN Reason: Nausea/Vomiting Propofol (Diprivan) 1,000 mg IV INF PRN; Protocol PRN Reason: TO ACHIEVE GRIFFITHS SCORE 2-3 Stop: 04/19/17 17:01 Last Admin: 03/22/17 07:22 Dose: 1,000 mg Sodium Chloride (Flush - Normal Saline) 10 ml IVF Q12HR MIKE Last Admin: 03/22/17 09:00 Dose: 10 ml Sodium Chloride (Flush - Normal Saline) 10 ml IVF PRN PRN PRN Reason: Saline Flush
--- NOTE | 2017-03-22 17:08 | PRG ---
DATE OF SERVICE: 03/22/2017 SUBJECTIVE: Mr. Bennett's events have been reviewed. He is mechanically ventilated. OBJECTIVE: VITAL SIGNS: He is afebrile, heart rate is in the 90s, blood pressure 159/64, respiratory rate is 14. Minute volume is running 10-11 liters a minute. LUNGS: Remarkable for decreased breath sounds at the right lateral chest. Left lung is clear. HEART: Regular rhythm. ABDOMEN: Soft. LABORATORY DATA: White count 7.6, hemoglobin 9, platelets 141. Electrolytes are normal, BUN 44, creatinine 1.2. CPK was 12,210. IMAGING: Chest radiograph shows a right effusion. IMPRESSION: 1. Pneumonia. 2. Right effusion. PLAN: Consult CT surgery for placement of the chest tube. It turns out this is a hemothorax. His said he sneezed and then developed severe right- sided pleuritic chest pain. I supposed he could have fractured a rib or fell and not told his about the fall. Dr. King knows them very well, who have passed clinical interactions over peripheral vascular disease. Continue empiric antimicrobial therapy. Chest radiograph shows findings suggestive of an ileus. I feel CT scanning of his abdomen is indicated yet. Critical care time 30 min. [facility]
[2017-03-22] MEDS: Azithromycin 500 MG in Sodium Chloride 0.9% 250 ML 250 ML IVPB SCH (17:53)
[2017-03-22] MEDS: Famotidine/PF 20 mg/2ml Vial SLOW IVP SCH (20:47)
[2017-03-22] MEDS: Acetaminophen 650 MG/20.3 ML UDCUP PO PRN (20:52)
[2017-03-23] MEDS: Piperacillin/Tazobactam 2.25 GM in Sodium Chloride 0.9% 100 ML IVPB SCH ×4 (05:10→23:53)
[2017-03-23] MEDS: Sodium Chloride 0.45% 1,000 ML IV SCH ×2 (05:10→13:39)
[2017-03-23 05:44] LABS: Band 26 % (5-11); Hematocrit 26.1 % (42.0-52.0); Mean Platelet Volume 8.3 fL (7.4-10.4); Neutrophil 52 % (42-75); Red Blood Cell (RBC) Count 2.46 mill/uL (4.70-6.10); White Blood Cell (WBC) Count 10.4 thou/uL (4.8-10.8)
[2017-03-23 05:52] LABS: ALT (SGPT) 59 U/L (8-55); AST (SGOT) 234 U/L (5-34); Alkaline Phosphatase 119 U/L (40-150); Anion Gap 12 mmol/L (10-20); BUN (Urea Nitrogen) 33 mg/dL (8.4-25.7); Bilirubin, Total 0.8 mg/dL (0.2-1.2); Calc. Creatinine Clearance 74 mL/min (70-130); Calcium 7.9 mg/dL (7.8-10.44); Carbon Dioxide 26 mmol/L (23-31); Chloride 109 mmol/L (98-107); Estimated GFR-MDRD 61; Globulin 3.1 g/dL (2.4-3.5); Magnesium 2.7 mg/dL (1.6-2.6); Protein, Total 5.7 g/dL (5.8-8.1)
[2017-03-23 06:18] LABS: CK (CPK) 10169 U/L (30-200)
--- NOTE | 2017-03-23 07:59 | RAD ---
ABDOMEN 1 VIEW: Date: 03/23/17 HISTORY: 72-year-old male with abdominal distention, ileus versus obstruction. COMPARISON: 03/22/17. FINDINGS: NG tube is in place. There are pleural and parenchymal opacity changes in the lung bases. There are p ersistent abnormally dilated loops of small bowel, particularly in the left mid abdomen. There is luli e gas and fecal material, particularly in the left and sigmoid colon and rectum. Findings are certain ly concerning for the possibility of small bowel obstruction. No significant improvement from the study. Consider follow-up Gastrografin small bowel for further evaluation. IMPRESSION: Abnormally dilated small bowel loops, showing little change from prior study, certainly concerning fo r partial small bowel obstruction. Consider follow-up Gastrografin small bowel for further assessment . POS: SHEREE
[2017-03-23] MEDS ORDERED: DC Sedation Protocol FS ONE (09:15)
[2017-03-23] MEDS: Insulin Regular 300 UNITS/3 ML VIAL SC PRN ×4 (09:36→20:21)
[2017-03-23] MEDS: NPH, Human Insulin Isophane 300 UNIT/3 ML VIAL SC SCH ×2 (09:37→14:42)
--- NOTE | 2017-03-23 09:38 | PRG ---
DATE OF SERVICE: 03/23/2017 Thirty-five minutes critical care time. The patient remains intubated on mechanical ventilation. He will wake up and follow some commands. He passed a spontaneous breathing trial without much difficulty today. PHYSICAL EXAMINATION: VITAL SIGNS: On exam his temperature is 100.5, pulse 85, blood pressure 150/63. 24 hour intake 1367 , output 2610. HEENT: Unremarkable. NECK: No JVD. CHEST: Clear to auscultation without wheezing. CARDIAC: S1 and S2 regular. ABDOMEN: Soft. EXTREMITIES: No edema. LABORATORY DATA: Sodium 143, potassium 4.4, chloride 101, CO2 26, BUN 33, creatinine 1.1, glucose 16 7. CPK 10,169, white blood cell count 10, hematocrit 26.1, platelet count 152. No ABG was done toda y. ASSESSMENT: 1. Status post respiratory failure related to a right-sided hemothorax. 2. Acute respiratory failure requiring mechanical ventilation. 3. Pneumonia. PLAN: I believe the patient can be safely extubated. Continue antibiotics, continue chest tube charisma hanna. I spoke to his at the bedside.
--- NOTE | 2017-03-23 09:41 | PRG ---
DATE OF SERVICE: 03/23/2017 SUBJECTIVE: The patient is seen and examined at the bedside. He is sedated. He is intubated orally . There was not any unexpected events overnight. OBJECTIVE: VITAL SIGNS: Blood pressure is 167/61, pulse is 85, respiratory rate is 13, pulse oximetry is 99% on 37% of FIO2. LUNGS: Breath sounds diminished at the right base. No wheezing, no crackles. HEART: S1, S2, somewhat distant. No S3, no S4. ABDOMEN: Soft, mildly distended, peristalsis, very sluggish. EXTREMITIES: No peripheral edema. NEUROLOGIC: Postponed since he is sedated at the time of my visit. LABORATORY DATA: Showed a white count of 10.4, hemoglobin 8.4, hematocrit 26.1, MCV is 106, bands 26 . Sodium of 143, potassium 4.4, chloride 109, CO2 26, BUN 33, creatinine 1.17, GFR is estimated at 6 1. Glycemia is ranging from 174-213, magnesium is 2.7. AST 234, ALT 59, creatinine kinase is down t o 10,169. Serum protein 5.9, albumin 2.6. MICROBIOLOGY: Respiratory culture showed 5-10 epithelial cells, moderate WBCs, many gram positive co cci in pairs, chains and clusters, moderate gram negative rods, few gram variable rods, so final resu lts is many normal respiratory nj present. His 1 out of 2 blood cultures done on 03/20, positive for bacillus species, not anthracis. Second blood culture came back negative and urine culture came back positive for gram positive cocci more than 100,000 colonies. Identification is still pending. Chest x-ray showed some residual pleural effusion on the right side, somewhat better than pre-chest t ube placement. IMPRESSION: 1. Acute hypoxic respiratory failure on mechanical ventilation. 2. Toxic metabolic encephalopathy. 3. Most likely sepsis. Urine culture is growing gram positive cocci and 1 out of 2 blood cultures g rowing gram positive rods. Full identification is still pending. The patient is on Zosyn and azithr omycin at this point. 4. Rhabdomyolysis with CK down to 10,000. The patient is on IV fluids, we will continue that. 5. Peripheral vascular disease. 6. Diabetes mellitus. His glycemia is ranging from 170-200 and we will keep him on small dose of lo ng-acting insulin plus sliding scale. 7. Hypertension. 8. Abdominal distention, which is mild on the abdomen. Abdominal x-ray showed some air pattern, whi ch is nonspecific. Radiology recommends to do Gastrografin studies to make sure there is no obstruct ion, but he had some bowel movements in the last 24 hours, which is the best evidence that he is not obstructed. He has a history of previous abdominal surgery with some resection, I believe part of e colon many years ago. 9. Chronic obstructive pulmonary disease. 10. Coronary artery disease. 11. Peripheral neuropathy. PLAN: At this point, we will continue his mechanical ventilation. Continue supportive care. His Pl avix is on hold since Dr. King drained quite a bit of blood from his right chest yesterday after th e chest tube was placed. We will continue antibiotics, Zosyn and azithromycin. We will continue IV fluids and closely monitor his labs daily.
--- NOTE | 2017-03-23 10:17 | RAD ---
UPRIGHT PORTABLE CHEST 1 VIEW: Date: 03/23/17 HISTORY: 72-year-old male with respiratory insufficiency. FINDINGS: NG tube and endotracheal tubes are again noted. Monitor leads overlie the chest. There is evidence fo r right pleural effusion, as well as patchy interstitial and fine alveolar opacity changes, particula rly in the right lung. These do appear to show some improvement from the prior study. IMPRESSION: Improving primarily right-sided interstitial and alveolar opacities with stable right pleural effusio n and stable changes in the left chest. Continue short-term follow-up. POS: SHEREE
[2017-03-23] MEDS: Azithromycin 500 MG in Sodium Chloride 0.9% 250 ML 250 ML IVPB SCH (16:34)
[2017-03-23] MEDS: Famotidine/PF 20 mg/2ml Vial SLOW IVP SCH (20:00)
[2017-03-23] MEDS: hydrALAZINE 20 MG/ML VIAL SLOW IVP PRN (21:41)
[2017-03-24] MEDS: Insulin Regular 300 UNITS/3 ML VIAL SC PRN ×6 (00:15→23:28)
[2017-03-24] MEDS ORDERED: Ketorolac Tromethamine 30 MG/ML VIAL IVP SCH (01:00)
[2017-03-24 01:46] LABS: Bilirubin Negative (Negative); Blood, Urine Large (Negative); Glucose, Urine (Dipstick) 500 mg/dL (Negative); Ketone, Urine 80 mg/dL (Negative); Nitrite Negative (Negative); Protein, Urine (Dipstick) 100 mg/dL (Neg-Trace); Urobilinogen 0.2 mg/dL (0.2-1.0)
[2017-03-24 01:48] LABS: Bacteria/HPF None Seen HPF (None Seen); Hyaline Casts/LPF 0-3 HYALINE CAST LPF (0-3 Hyaline); Squamous Epithelial 0-3 HPF (0-3)
[2017-03-24 01:56] LABS: RBC/HPF 0-3 HPF (0-3); Renal Epithelial None Seen HPF (0-3); Transitional Epithelial NONE SEEN HPF (0-3); Yeast-All Forms None Seen HPF (None Seen)
[2017-03-24 04:21] LABS: Hematocrit 29.4 % (42.0-52.0); Mean Platelet Volume 8.5 fL (7.4-10.4); Red Blood Cell (RBC) Count 2.82 mill/uL (4.70-6.10); White Blood Cell (WBC) Count 13.8 thou/uL (4.8-10.8)
[2017-03-24 04:22] LABS: Band 8 % (5-11); Neutrophil 65 % (42-75)
[2017-03-24] MEDS: hydrALAZINE 20 MG/ML VIAL SLOW IVP PRN (04:27)
[2017-03-24 04:32] LABS: ALT (SGPT) 93 U/L (8-55); AST (SGOT) 370 U/L (5-34); Alkaline Phosphatase 133 U/L (40-150); Anion Gap 16 mmol/L (10-20); BUN (Urea Nitrogen) 32 mg/dL (8.4-25.7); Bilirubin, Total 1.3 mg/dL (0.2-1.2); Calc. Creatinine Clearance 75 mL/min (70-130); Calcium 8.2 mg/dL (7.8-10.44); Carbon Dioxide 23 mmol/L (23-31); Chloride 110 mmol/L (98-107); Estimated GFR-MDRD 62; Globulin 3.5 g/dL (2.4-3.5); Protein, Total 6.3 g/dL (5.8-8.1)
[2017-03-24 04:43] LABS: Oxyhemoglobin 92.3 % (94.0-97.0); Sodium 146 mmol/L (135-148)
[2017-03-24 04:46] LABS: Mode 3L NC; Modified Allen's Test POSITIVE
[2017-03-24] MEDS: Piperacillin/Tazobactam 2.25 GM in Sodium Chloride 0.9% 100 ML IVPB SCH (05:44)
[2017-03-24] MEDS: Sodium Chloride 0.45% 1,000 ML IV SCH ×2 (06:08→12:02)
[2017-03-24] MEDS: Morphine 4 MG/ML VIAL SLOW IVP PRN ×4 (07:54→21:00)
[2017-03-24] MEDS: NPH, Human Insulin Isophane 300 UNIT/3 ML VIAL SC SCH (09:04)
--- NOTE | 2017-03-24 09:18 | RAD ---
PORTABLE AP CHEST XRAY: DATE: 03/24/17. HISTORY: Daily followup evaluation. On ventilator. COMPARISON: 03/23/17. FINDINGS: The endotracheal tube and nasogastric tubes have been removed. Right-sided thoracostomy tube remains in place and unchanged in position. Pleural and parenchymal changes at the right lung base are agai n seen and there are increased interstitial and alveolar opacities seen throughout the right lung gre ater in the right upper lung zone which appear mildly increased from the prior study. No pneumothora x is seen, but there is a tubular gas density overlying the dense parenchymal opacity at the right junior ng base and overlying the right-sided ribs. This may actually represent subcutaneous gas. Minimal linear and patchy density is seen at the medial left lung base. Cardiac silhouette is within normal limits. No other interval change. IMPRESSION: 1. Interval removal of the endotracheal tube and nasogastric tubes. 2. Dense pleural-based opacity at the right lung base and right lung apex likely related to pleural fluid which is loculated. A tubular gas density at the right lung base is of uncertain etiology and may be related to gas in the subcutaneous soft tissues. 3. Persistent increased interstitial and alveolar opacities throughout the right lung likely related to infectious process. Continued followup to complete resolution is recommended. 4. Right-sided thoracostomy tube is stable in position, and no pneumothorax is seen. POS: SHEREE
--- NOTE | 2017-03-24 09:20 | RAD ---
SUPINE ABDOMINAL RADIOGRAPH: DATE: 03/24/17. HISTORY: Ileus versus small bowel obstruction. COMPARISON: 03/23/17. FINDINGS: There is persistent dilatation and gaseous distention of loops of small bowel within the abdomen with more decompressed and normal caliber gas-filled loops of small bowel in the right upper quadrant. G iven differences in caliber of loops of bowel, findings may be attributable to partial small bowel ob struction. Left total hip prosthesis is again seen with temperature probe overlying the midline lowe r pelvis. There has been no significant interval change from the prior exam. IMPRESSION: Persistent dilated loops of small bowel. Findings are again concerning for a partial small bowel obs truction as there are also loops of small bowel which are more normal in caliber and gas-filled. POS: [facility]
--- NOTE | 2017-03-24 10:56 | PRG ---
DATE OF SERVICE: 03/24/2017 SUBJECTIVE: The patient was extubated yesterday and did well initially until last night when he alisha me more tachypneic. He did not desat, he was put on BiPAP and seems to be in fairly significant amou nt of pain. PHYSICAL EXAMINATION: VITAL SIGNS: Temperature is 100.8 after T-max, pulse 86, and blood pressure 166/73. HEENT: Unremarkable. NECK: No JVD. LUNGS: Clear anteriorly bilaterally. He has chest tube in placed in the right. CARDIAC: S1 and S2, regular. ABDOMEN: Soft. EXTREMITIES: No edema. LABORATORY DATA: Sodium 145, potassium 3.7, chloride 110, CO2 of 23, BUN 32, creatinine 1.2, glucose 147, AST 370, ALT 93. PH 7.49, pCO2 of 57, pO2 of 58. White blood cell count 13.8, hematocrit 29.4 , platelet count 191. Chest x-ray shows continued loculated appearance in the right base. He has so me air tracking down that medially chest tube is superior to that. ASSESSMENT: 1. Right hemothorax after a fall. 2. Acute respiratory failure, requiring mechanical ventilation, now BiPAP. 3. Significant amount of pain. PLAN: 1. Continue antibiotics. 2. He may end up needing a decortication and reintubation. 3. Morphine for pain. 4. We will discuss with Dr. King.
[2017-03-24] MEDS: Piperacillin/Tazobactam 3.375 GM in Sodium Chloride 0.9% 100 ML IVPB SCH ×2 (13:10→21:01)
--- NOTE | 2017-03-24 14:43 | PRG ---
DATE OF SERVICE: 03/24/2017 SUBJECTIVE: The patient seen and examined at bedside. He is in C6 ICU bed. He was extubated yester day. He is on BiPAP since this morning after he had ABGs done showing some hypoxia. OBJECTIVE: VITAL SIGNS: Blood pressure is 167/74, pulse is 84, respiratory rate 24, O2 saturation is 100%. GENERAL: He is not able to communicate with me. He is quite obtunded and he does not follow my comm ands. He responds to the painful stimuli, but that is all we can get from him. He wears a BiPAP mas k at the time of my visit. LUNGS: Showing some decreased breath sounds at the right base and few crackles over the right lung, scattered. No wheezing. HEART: S1, S2, somewhat distant, no S3, no S4. ABDOMEN: Somewhat distended and tender to palpation all over. Bowel sounds are present. EXTREMITIES: No clubbing, cyanosis or edema. NEUROLOGIC: He is very obtunded and not following. His pupils are approximately 3 mm in size, respo nding to light by constriction. Sclera is nonicteric. Conjunctivae pinkish. He moves all 4 extremi ties. He moans and groans on and off, but he spontaneously is moving his extremities. His Babinski s ign is negative on both sides. LABORATORY DATA: Showed a white count of 13.8, hemoglobin of 9.7, hematocrit 29.4, platelet count is 191. ABGs from this morning showed pH of 7.49, pCO2 of 27.9, pO2 58.6. Sodium of 145, potassium 3. 7, chloride 110, CO2 of 23, BUN 32, creatinine 1.15. Glycemia is ranging from 150-169, total bilirub in 1.3, AST 370, ALT 93, alkaline phosphatase 133, albumin 2.8. Urinalysis 100 of protein, 500 of gl ucose, 80 ketones, large amount of blood, 4-6 wbc's on the scope. X-ray of chest is showing right ch est tube in place, loculated fluid in the right lower lobe and scattered infiltrates in the right jd g. X-ray of the abdomen showed dilated small bowel loops. IMPRESSION: 1. Acute hypoxic respiratory failure, status post mechanical ventilation. The patient became hypoxi c during the night. He was placed on BiPAP. 2. Toxic metabolic encephalopathy. It is not clear whether this is related to infectious process. 3. Most likely sepsis. The patient is continued on Zosyn and azithromycin. 4. Rhabdomyolysis, on IV fluids, improving. 5. Peripheral vascular disease. 6. Diabetes mellitus, relatively well controlled. Blood sugar is ranging from 150-160. 7. Abdominal distention and enlarged small bowel loops on the x-ray. We discussed the case with Dr. Odell regarding possible imaging of his abdomen and pelvis. 8. Coronary artery disease. 9. Peripheral neuropathy. 10. Chronic obstructive pulmonary disease per history. PLAN: To keep him on the BiPAP at this point, continue IV antibiotics, continue IV fluids and serial labs every morning to monitor progress and PUD prophylaxis with H2 bhupinder.
[2017-03-24] MEDS: Azithromycin 500 MG in Sodium Chloride 0.9% 250 ML 250 ML IVPB SCH (16:47)
--- NOTE | 2017-03-24 19:05 | CT ---
NONCONTRAST CT ABDOMEN AND PELVIS 03/24/17 HISTORY: Abdominal pain and tenderness. COMPARISON: CT thorax on 03/20/17 as well as a prior CT abdomen and pelvis on 11/03/14. FINDINGS: Right sided thoracostomy tube is noted in place with the tip at the posteromedial aspect of the right mid chest. There is a small pneumothorax seen anteriorly. Parenchymal changes are present at the ri ght lung base. Previously noted increased density material and heterogeneous fluid on the right is ag ain seen which may be related to hemorrhage. Areas of consolidation may be related to either pneumoni a or atelectasis. There is atelectasis present at the left lung base. Vascular calcifications seen in the coronary jay crhis as well as involving the distal thoracic aorta and involving the abdominal aorta. There is an ab dominal aortic aneurysm which measures 3.8 cm in greatest AP dimensions. This previously measured 3.5 cm in greatest dimension on a study in 2015. Again noted is cholelithiasis. The liver, spleen, and pancreas, demonstrate a grossly normal nonenhanced CT appearance. There is mil d thickening of each adrenal gland similar to the prior study and probably related to adrenal hyperpl contreras. 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 No renal or ureteral calculi are seen bilaterally and there is no hydronephrosis. A Mandel catheter is present in a decompressed urinary bladder. The ascending colon is seen within the mid upper abdomen anteriorly and findings could be related to prior right hemicolectomy. Small bowel loops are normal in caliber. There is subcutaneous edema great er on the right. The most proximal jejunum just distal to the ligament of Treitz is dilated measuring up to 4.9 cm. Bowel loops distal to this region are also mildly prominent and fluid filled, but this only extends for a short segment where there is tapering to more normal caliber loops of small bowel . Surgical clips seen in the left inguinal region. There is a left total hip prosthesis present. There is minimal stranding in a presacral location. The colon is mildly distended with retained fecal material and gas. IMPRESSION: 1. Right sided thoracostomy tube in place with interval decrease in heterogeneous fluid likely r elated to hemorrhage at the right lung base, but the heterogeneous material does persistent with asso ciated gas in the pleural space. 2. Consolidation at the right lung base which may be related to either pneumonia or atelectasis. 3. Fluid filled and mildly dilated proximal loops of jejunum with tapering to more normal calibe r small bowel loops without an abrupt transition point. I am unsure if this is related to either deve loping ileus or partial small bowel obstruction. Remainder of the small bowel loops are normal in kanu iber. 4. Gaseous distention of the colon with retained fecal material seen within the colon. The ascen ding colon is seen within the mid upper abdomen and findings could be related to hemicolectomy. 5. Focal infrarenal abdominal aortic aneurysm measuring 3.8 cm. 6. Cholelithiasis. 7. Remainder of the findings are as described above. POS: [facility]
[2017-03-24] MEDS: Famotidine/PF 20 mg/2ml Vial SLOW IVP SCH (21:01)
[2017-03-25] MEDS: Morphine 4 MG/ML VIAL SLOW IVP PRN ×2 (01:01→05:16)
[2017-03-25] MEDS: Insulin Regular 300 UNITS/3 ML VIAL SC PRN ×5 (03:34→20:07)
[2017-03-25] MEDS: Sodium Chloride 0.45% 1,000 ML IV SCH (03:43)
[2017-03-25] MEDS: Piperacillin/Tazobactam 3.375 GM in Sodium Chloride 0.9% 100 ML IVPB SCH ×3 (05:16→21:02)
[2017-03-25 08:09] LABS: #Lymphocytes 1.3 thou/uL (1.20-3.40); #Neutrophils 10.7 thou/uL (1.40-6.50); %Basophils 0.1 % (0.0-1.0); %Eosinophils 0.2 % (0.0-10.0); %Lymphocytes 10.2 % (21.0-51.0); %Monocytes 7.6 % (0.0-10.0); Hematocrit 30.4 % (42.0-52.0); Mean Platelet Volume 8.8 fL (7.4-10.4); Red Blood Cell (RBC) Count 2.91 mill/uL (4.70-6.10); White Blood Cell (WBC) Count 13.1 thou/uL (4.8-10.8)
[2017-03-25 08:17] LABS: Anion Gap 11 mmol/L (10-20); BUN (Urea Nitrogen) 31 mg/dL (8.4-25.7); Calc. Creatinine Clearance 93 mL/min (70-130); Calcium 7.9 mg/dL (7.8-10.44); Carbon Dioxide 26 mmol/L (23-31); Chloride 116 mmol/L (98-107); Estimated GFR-MDRD 79
[2017-03-25] MEDS: NPH, Human Insulin Isophane 300 UNIT/3 ML VIAL SC SCH (08:18)
[2017-03-25] MEDS ORDERED: CCU Electrolyte Replacement 1 EACH FS ONE (08:39)
[2017-03-25] MEDS ORDERED: CCU ELECTROLYTE REPLACEMENT PROTOCOL FS PRN (08:42)
[2017-03-25] MEDS ORDERED: Potassium Phosphate 9 MMOL in Sodium Chloride 0.9% 100 ML IVPB PRN (08:42)
[2017-03-25] MEDS ORDERED: Magnesium Oxide 400 MG TAB PO PRN (08:42)
[2017-03-25] MEDS ORDERED: Magnesium 2 GM/NS 0.9% 100 ML 2 GM in Premix Bag 1 BAG IVPB PRN (08:42)
[2017-03-25] MEDS ORDERED: Potassium Phosphate 15 MMOL in Sodium Chloride 0.9% 250 ML 250 ML IV PRN (08:42)
[2017-03-25] MEDS ORDERED: Potassium Chloride 40 MEQ in Sodium Chloride 0.9% 250 ML 250 ML IVPB PRN (08:42)
[2017-03-25] MEDS ORDERED: Potassium Phosphate 12 MMOL in Sodium Chloride 0.9% 250 ML 250 ML IV PRN (08:42)
[2017-03-25] MEDS ORDERED: Potassium Chloride 20 MEQ TAB PO PRN (08:42)
[2017-03-25] MEDS: Acetaminophen 650 MG in Premix Bag 1 BAG IVPB PRN ×3 (08:43→20:07)
--- NOTE | 2017-03-25 08:57 | RAD ---
PORTABLE AP CHEST XRAY: DATE: 03/25/17. HISTORY: Daily followup evaluation. Right-sided thoracostomy tube. COMPARISON: 03/24/17. FINDINGS: Right-sided thoracostomy tube remains in place with tip seen overlying the medial aspect of the right mid hemithorax. Pleural and parenchymal changes are again seen at the right lung base with associat ed gas density. Pleural-based density does appear mildly improved on this exam. There is are persis tent increased interstitial opacities on the right. The left lung remains clear. No other interval change. IMPRESSION: 1. Suggestion of mild improvement in pleural and parenchymal changes at the right lung base with per sistent gas density seen overlying the pleural-based density. 2. Thoracostomy tube stable in position. 3. Persistent increased interstitial opacities on the right. POS: [facility]
[2017-03-25] MEDS: ADMIXTURE FEE IV SCH ×6 (10:04→23:43)
[2017-03-25] MEDS: POTASSIUM CHLORIDE IV SCH ×6 (10:04→23:43)
[2017-03-25] MEDS: WATER IV SCH ×6 (10:04→23:43)
[2017-03-25] MEDS: DEXTROSE IV SCH ×6 (10:04→23:43)
--- NOTE | 2017-03-25 10:09 | PRG ---
DATE OF SERVICE: 03/25/2017 He is actually a little more arousable and can answer some questions today and he falls asleep quite easily. PHYSICAL EXAMINATION: VITAL SIGNS: His temperature is 98.7, pulse 92, blood pressure 155/78. 24 hour intake 2180, output 1705. HEENT: Unremarkable. NECK: No JVD. LUNGS: Fairly clear bilaterally. He has a chest tube on the right. No air leak. CARDIOVASCULAR: S1, S2 regular. ABDOMEN: Soft. He has bruising over his right chest. EXTREMITIES: No clubbing, cyanosis, or edema. LABORATORY DATA: Labs are pending. His CT of the abdomen demonstrated some fluid filled mildly dila carmela loops of his jejunum suggestive of possible ileus. There is a 3.8 infrarenal abdominal aortic an eurysm; other than, it was fairly benign. ASSESSMENT: 1. Right hemothorax after a fall. 2. Acute respiratory failure requiring mechanical ventilation - he has now been off BiPAP for about the last 24 hours. 3. Significant amount of pain - is decreased mental status may be related to the morphine he has bee n taking for the pain. PLAN: We will try to stop the morphine for pain and treat it with Ofirmev as needed, could possibly use Toradol if he has breakthrough pain with morphine.
--- NOTE | 2017-03-25 11:10 | PRG ---
DATE OF SERVICE: 03/25/2017 SUBJECTIVE: The patient seen and examined at bedside. He is in C6 ICU bed. He is little bit more a wake this morning. He tries to respond to my commands, but he falls short very quickly. When he is asked to squeeze my hands, he offers his hand to be shake. He tries to open his eyes with difficulti es. OBJECTIVE: VITAL SIGNS: Blood pressure is 167/73, pulse is 93, respiratory rate is 28, and pulse oximetry is 95 % on room air. HEENT: Pupils respond to light properly. Sclerae is nonicteric. Conjunctivae pinkish. Oral mucosa is somewhat dry. LUNGS: Breath sounds diminished at the right base. Few wheezes bilaterally and few crackles bilater ally at both bases. HEART: S1, S2 normal, no S3, no S4. ABDOMEN: Distended, somewhat tender on palpation with mild guarding. EXTREMITIES: No clubbing, cyanosis or edema. NEUROLOGIC: He tries to follow my commands, but he is fall short very quickly. He is very comatose. He moves all 4 extremities. He moves on and off. He tries to follow my commands. LABORATORY DATA: Showed white count of 13.1, hemoglobin 9.9, hematocrit 30.4, platelet count is 235. Chemistry: Sodium of 150, potassium 3.3, chloride 116, BUN 31, creatinine 0.94, glycemic ranging f rom 150-180. Blood cultures from the , no growth so far. Abdomen and pelvis CT done yesterday s howed a right-sided thoracostomy tube in place with some evidence of decrease of heterogeneous fluids which is we know hemorrhage along with consolidation of the right lung base, which is most likely pn eumonia versus atelectasis. Also, there was some mildly dilated proximal loops of jejunum with taper ing to more normal caliber small bowel loops without an abrupt transition point, so there is some destiny picion of partial small-bowel obstruction versus developing ileus. Also, there was some gaseous dist ention of the colon with retained fecal material seen within the colon. There was some infrarenal ab dominal aortic aneurysm measuring 3.8 cm and cholelithiasis. Chest x-ray from this morning showed so me improvement of the pleural fluid on the right-side, thoracostomy tube in position and increased in terstitial opacities in the right lung. IMPRESSION: 1. Acute hypoxic respiratory failure, status post extubation. The patient is maintaining his airway s without any support. His oxygenation is good. 2. Toxic metabolic encephalopathy, most likely related to infection. 3. Most likely sepsis with negative blood cultures, again on azithromycin and Zosyn. 4. Rhabdomyolysis. 5. Hypernatremia, hyperchloremia. We will change his fluids to D5 water. 6. Peripheral vascular disease. 7. Diabetes mellitus, relatively well controlled. 8. Abdominal distention, which is suggestive of some form of dysfunctional gut, either it is a mild ileus or small-bowel obstruction, mild form partial. The patient is going to have Dulcolax and he is going to be up in the chair. We will try to stimulate the system to help the gut to go back to norm al function. 9. Coronary artery disease, stable. 10. Peripheral neuropathy. 11. Chronic obstructive pulmonary disease per history. PLAN: Continue IV antibiotics, Zosyn and azithromycin, change IV fluids to D5 water, get him out of bed, continue PUD prophylaxis with H2 bhupinder and he is not on any chemical DVT prophylaxis and SCDs because of his bleeding and peripheral vascular disease.
[2017-03-25] MEDS: Azithromycin 500 MG in Sodium Chloride 0.9% 250 ML 250 ML IVPB SCH (17:16)
[2017-03-25] MEDS: Famotidine/PF 20 mg/2ml Vial SLOW IVP SCH (20:07)
[2017-03-26] MEDS: Insulin Regular 300 UNITS/3 ML VIAL SC PRN ×7 (00:28→23:56)
[2017-03-26] MEDS: Piperacillin/Tazobactam 3.375 GM in Sodium Chloride 0.9% 100 ML IVPB SCH ×3 (05:00→22:06)
[2017-03-26] MEDS: DEXTROSE IV SCH ×6 (05:44→16:42)
[2017-03-26] MEDS: ADMIXTURE FEE IV SCH ×6 (05:44→16:42)
[2017-03-26] MEDS: WATER IV SCH ×6 (05:44→16:42)
[2017-03-26] MEDS: POTASSIUM CHLORIDE IV SCH ×6 (05:44→16:42)
--- NOTE | 2017-03-26 08:47 | RAD ---
PORTABLE CHEST: Date: 03/26/17 HISTORY: Dyspnea. CCU follow-up. COMPARISON: 03/25/17. FINDINGS: Right-sided effusion and right basilar atelectasis again noted. There is a right-sided chest tube whi ch remains in place. There is cardiomegaly and mild vascular engorgement. IMPRESSION: Possible increase in right pleural fluid when compared to yesterday. POS: [facility]EREE
[2017-03-26] MEDS: Famotidine/PF 20 mg/2ml Vial SLOW IVP SCH ×2 (09:04→21:13)
[2017-03-26] MEDS: NPH, Human Insulin Isophane 300 UNIT/3 ML VIAL SC SCH (09:05)
[2017-03-26 09:24] LABS: Calcium 7.9 mg/dL (7.8-10.44); Chloride 116 mmol/L (98-107)
[2017-03-26 09:26] LABS: Anion Gap 16 mmol/L (10-20); Carbon Dioxide 20 mmol/L (23-31)
[2017-03-26 09:28] LABS: Calc. Creatinine Clearance 91 mL/min (70-130); Estimated GFR-MDRD 77
[2017-03-26 09:29] LABS: BUN (Urea Nitrogen) 26 mg/dL (8.4-25.7)
--- NOTE | 2017-03-26 09:47 | PRG ---
DATE OF SERVICE: 03/26/2017 SERVICE: Pulmonary Medicine INTERVAL HISTORY: The patient is doing okay. He had his chest tube removed this morning. Apparently he has been very agitated through the night. He is writhing in bed. Moves left and right. He is up in a chair this morning, but appears to be uncomfortable. That being said, when you ask him specific questions about discomfort, he denies. He denies any shortness of breath or chest discomfort. No nausea, vomiting or diarrhea. Otherwise, there were no overnight events. PHYSICAL EXAMINATION: VITAL SIGNS: Afebrile, pulse 99, blood pressure 168/62, respirations 20, saturation 94% on 2 liters nasal cannula. HEENT: Normocephalic, atraumatic. Sclerae are white, conjunctivae pink. Oral and the mucosa is moist without lesions. LUNGS: Decent air entry. There is a prolonged expiratory phase with some expiratory wheezing. I appreciate no crackles. HEART: Normal rate, regular. ABDOMEN: Soft, nontender, nondistended. Bowel sounds are positive. MUSCULOSKELETAL: No cyanosis or clubbing. No pitting in the bilateral lower extremities. He demonstrates livedo reticularis throughout both legs. GENITOURINARY: Mandel catheter in place. NEUROLOGIC: Grossly nonfocal. LABORATORY DATA: WBC 13.1 and down trending, hemoglobin 9.9. Platelets 235, 000. INR 1.2. Basic metabolic profile is currently pending. Blood sugars ranged from 190-233. His potassium this morning is 3.8. Previously, his sodium was 150 with an elevated chloride. Ammonia was 30. Urine is growing Streptococcus. Blood cultures growing bacillus in one out of 2. Repeat blood cultures on the are negative to date. Urine culture at the same time was unremarkable. IMAGING: Chest x-ray demonstrates right-sided pleural effusion. This is increased compared to the prior day. He has got a right-sided thoracostomy drain with a side port in the chest. ASSESSMENT: 1. Acute hypoxic respiratory failure. 2. Severe sepsis. 3. Community-acquired pneumonia. 4. Hemothorax secondary to sneeze. 5. Acute kidney injury, resolved. 6. Acute blood loss anemia. PLAN: We will repeat an ABG and a chest x-ray to make certain there has been no acute changes there. We will continue our frequent nebulized medication. The patient will continue BiPAP to be used as needed. Azithromycin will be discontinued as the patient has received an appropriate duration of this. Zosyn will be discontinued after a total duration of 7 days, which should be tomorrow. Supportive care will be continued. The patient will remain in the ICU for the time being because of his appearance. Centrally acting medications will be minimized. MTDD
[2017-03-26 11:59] LABS: Oxyhemoglobin 96.2 % (94.0-97.0); Sodium 149 mmol/L (135-148)
[2017-03-26 12:00] LABS: Mode BI-PAP; Pressure Support 12 cmH2O; Vent NO
--- NOTE | 2017-03-26 12:11 | RAD ---
PORTABLE CHEST: Date: 03/26/17 HISTORY: Removal of chest tube. Assess for pneumothorax. FINDINGS: Right chest tube has been removed. There continues to be right basilar opacification suggesting some loculated fluid and/or right basilar atelectasis and/or infiltrate. No significant pneumothorax identified. Left lobe remains clear. IMPRESSION: No significant pneumothorax identified. There continues to be opacification in the right lung base wiley ggesting loculated fluid and associated atelectasis/consolidation. POS: [facility]
[2017-03-26] MEDS: Azithromycin 500 MG in Sodium Chloride 0.9% 250 ML 250 ML IVPB SCH (16:42)
--- NOTE | 2017-03-26 19:04 | PDOC.PN ---
- Subjective Encounter Start Date: 03/26/17 Encounter Start Time: 11:00 Patient seen and examined. No new complaints. No overnight events. On NIPPV. Mentation improving. - Objective MAR Reviewed: Yes Vital Signs & Weight: Vital Signs (12 hours) Temp Pulse Resp Pulse Ox 03/26/17 18:42 94 100 03/26/17 18:39 199 H 03/26/17 16:00 97.5 F L 03/26/17 14:12 87 26 H 99 03/26/17 12:00 97.6 F 03/26/17 10:12 86 03/26/17 10:10 87 37 H 100 03/26/17 09:05 98 03/26/17 08:00 98.3 F 100 35 H Weight Admit Weight 211 lb Weight 206 lb 5.643 oz Most Recent Monitor Data Heart Rate from ECG 98 NIBP 114/87 NIBP BP-Mean 103 Respiration from ECG 28 SpO2 100 I&O: 03/25/17 03/26/17 03/27/17 06:59 06:59 06:59 Intake Total 2180 2164 1440 Output Total 1705 2200 735 Balance 475 -36 705 Result Diagrams: 03/27/17 13:37 03/27/17 06:58 Additional Labs: Accuchecks 03/26/17 03/26/17 03/26/17 16:46 11:58 08:52 POC Glucose 209 H 236 H 233 H 03/26/17 03/26/17 03/25/17 03:57 00:26 20:05 POC Glucose 202 H 229 H 223 H EKG Reviewed by me: Yes (Tele SR) Phys Exam - Physical Examination Constitutional: NAD Respiratory: no wheezing, no rhonchi Rt sides rales Cardiovascular: RRR, no rub Gastrointestinal: soft, non-tender Musculoskeletal: no edema Neurological: moves all 4 limbs Dx/Plan - Plan IMPRESSION: 1. Acute hypoxic respiratory failure. s/p Mech Vent 2. Toxic metabolic encephalopathy. improving 3. Community-acquired pneumonia with pleural effusion/ hemothorax. s/p drainage with CT (CT dced) 4. Metabolic acidosis/lactic acidosis. resolved 5. Acute kidney injury on chronic kidney disease stage 2. improved 6. Hyperkalemia secondary to acute kidney injury with metabolic acidosis. improved 7. Rhabdomyolysis. 8. Abnormal troponins, probably secondary to demand ischemia. 9. Severe sepsis with acute organ dysfunction secondary to pneumonia. 10. Hyponatremia, probably secondary to hyperglycemia. 11. Peripheral vascular disease. on ASA. Plavix on hold 12. Diabetes mellitus type 2.- on sliding scale 13. Hypertension. 14. Anxiety/depression. 15. Peripheral neuropathy. 16. Chronic pain syndrome. 17. Hyperlipidemia. 18. Gastroesophageal reflux disease. 19. Coronary artery disease. 20. Peripheral vascular disease with stent 21. Carotid artery disease with stent 22. Benign prostatic hypertrophy. 23. Chronic obstructive pulmonary disease. - on nebs 24. Ileus PLAN: * CV/Critical care following * Cont supportive care * Plavix on hold * AM labs including CK * Cont Zosyn - Will dc Azithromycin per Critical care * Cont current meds as below * Cont sliding scale Review of Systems - Review of Systems Respiratory: Cough, Dry. negative: Shortness of Breath, Hemoptysis, SOB with Excertion, Pleuritic Pain, Sputum, Wheezing Cardiovascular: Other. negative: Chest Pain, Palpitations, Orthopnea, Paroxysmal Noc. Dyspnea, Edema, Light Headedness - Medications/Allergies Allergies/Adverse Reactions: Allergies Allergy/AdvReac Type Severity Reaction Status Date / Time No Known Allergies Allergy Verified 08/08/16 08:56 Medications: Current Medications Acetaminophen (Tylenol) 650 mg VA Q6H PRN PRN Reason: Fever > 101 or Mild Pain Last Admin: 03/24/17 00:13 Dose: 650 mg Acetaminophen (Tylenol Elixir) 650 mg PO Q6H PRN PRN Reason: Fever > 101 or Mild Pain Last Admin: 03/22/17 20:52 Dose: 650 mg Albuterol/Ipratropium (Duoneb) 3 ml NEB [id number] MIKE Last Admin: 03/26/17 18:39 Dose: 3 ml Albuterol/Ipratropium (Duoneb) 3 ml NEB [id number] PRN PRN Reason: SOB &/or Wheezing Aspirin (Aspirin Chewable) 81 mg PER TUBE DAILY [facility] Last Admin: 03/26/17 09:10 Dose: Not Given Bisacodyl (Dulcolax) 10 mg VA DAILYPRN PRN PRN Reason: Constipation Last Admin: 03/25/17 08:44 Dose: 10 mg Famotidine (Pepcid) 20 mg SLOW IVP Q12HR [facility] Last Admin: 03/26/17 09:04 Dose: 20 mg Hydralazine HCl (Apresoline) 10 mg SLOW IVP Q6H PRN PRN Reason: FOR SBP > 180 Last Admin: 03/24/17 04:27 Dose: 10 mg Azithromycin 500 mg/ Sodium (Chloride) 250 mls @ 250 mls/hr IVPB 1700 [facility] Last Admin: 03/26/17 16:42 Dose: 250 mls Piperacillin Sod/Tazobactam (Sod 3.375 gm/ Sodium Chloride) 100 mls @ 200 mls/ hr IVPB Q8HR [facility] Last Admin: 03/26/17 14:13 Dose: 100 mls Potassium Chloride 40 meq/ (Sodium Chloride) 270 mls @ 135 mls/hr IVPB ASDIR PRN PRN Reason: FOR SERUM K+ 2.5 - 3.5 Last Admin: 03/25/17 10:55 Dose: 270 mls Potassium Chloride 40 meq/ (Device) 100 mls @ 50 mls/hr IVPB ASDIR PRN PRN Reason: FOR SERUM K+ 2.5 - 3.5 Magnesium Sulfate 1 gm/ Sodium (Chloride) 102 mls @ 102 mls/hr IV PRN PRN PRN Reason: MAG LEVEL 1.4 - 2.0 Magnesium Sulfate 2 gm/ Device 100 mls @ 100 mls/hr IVPB ASDIR PRN PRN Reason: MAGNESIUM < 1.4 Potassium Phosphate 9 mmol/ (Sodium Chloride) 103 mls @ 25.75 mls/hr IVPB ASDIR PRN PRN Reason: Phosphate 1.0-1.8 Potassium Phosphate 12 mmol/ (Sodium Chloride) 254 mls @ 63.5 mls/hr IV ASDIR PRN PRN Reason: Serum phosphate 0.5-0.9 Potassium Phosphate 15 mmol/ (Sodium Chloride) 255 mls @ 63.75 mls/hr IV ASDIR PRN PRN Reason: Serum Phos < 0.5 Potassium Chloride 10 meq/Miscellaneous Medication 1 each/ Dextrose/Water 1, 005 mls @ 75 mls/hr IV .[id number] [facility] Last Admin: 03/26/17 16:42 Dose: 1,005 mls Insulin Human NPH (Humulin N) 15 unit SC DAILY [facility] Last Admin: 03/26/17 09:05 Dose: 15 unit Insulin Human Regular (Humulin R) 0 units SC .MODERATE SLIDING SC PRN PRN Reason: Moderate Correctional Scale Last Admin: 03/26/17 16:46 Dose: 4 unit Ketorolac Tromethamine (Toradol) 30 mg IVP Q6H PRN PRN Reason: Pain Stop: 03/30/17 08:03 Lactulose (Lactulose) 20 gm PO DAILYPRN PRN PRN Reason: Constipation Magnesium Oxide (Magnesium Oxide) 400 mg PO BIDPRN PRN PRN Reason: FOR SERUM MAG 1.4 - 2.0 Magnesium Oxide (Magnesium Oxide) 800 mg PO PRN PRN PRN Reason: FOR SERUM MAG < 1.4 Mineral Oil/White Petrolatum (Lacri-Lube Ointment) 0 gm EA EYE PRN PRN PRN Reason: Dry Eyes Miscellaneous Medication (Pharmacy To Dose) 1 each IVPB PRN PRN PRN Reason: Pharmacy to dose Miscellaneous Medication (Phos-Nak) 1 pkt PO TIDPRN PRN PRN Reason: FOR PHOS LEVEL 1.0 - 1.8 Miscellaneous Medication (Phos-Nak) 2 pkt PO TIDPRN PRN PRN Reason: FOR PHOS LEVEL 0.5 - 1.0 Ondansetron HCl (Zofran) 4 mg IVP Q6H PRN PRN Reason: Nausea/Vomiting Potassium Chloride (K-Dur) 40 meq PO ASDIR PRN PRN Reason: FOR SERUM K+ 2.5 - 3.5 Potassium Chloride (Klor-Con) 40 meq PER TUBE ASDIR PRN PRN Reason: FOR SERUM K+ 2.5-3.5 Sodium Chloride (Flush - Normal Saline) 10 ml IVF Q12HR MIKE Last Admin: 03/26/17 09:16 Dose: Not Given Sodium Chloride (Flush - Normal Saline) 10 ml IVF PRN PRN PRN Reason: Saline Flush
[2017-03-27] MEDS: Insulin Regular 300 UNITS/3 ML VIAL SC PRN ×2 (04:14→10:52)
[2017-03-27] MEDS: Piperacillin/Tazobactam 3.375 GM in Sodium Chloride 0.9% 100 ML IVPB SCH ×3 (05:05→21:16)
[2017-03-27 07:30] LABS: Anion Gap 16 mmol/L (10-20); BUN (Urea Nitrogen) 23 mg/dL (8.4-25.7); BUN/Creatinine Ratio 26.44; Calc. Creatinine Clearance 103 mL/min (70-130); Calcium 7.9 mg/dL (7.8-10.44); Carbon Dioxide 19 mmol/L (23-31); Chloride 113 mmol/L (98-107); Estimated GFR-MDRD 86; Magnesium 1.9 mg/dL (1.6-2.6); Phosphorus 2.1 mg/dL (2.3-4.7)
[2017-03-27 07:44] LABS: CK (CPK) 4944 U/L (30-200)
[2017-03-27 07:58] LABS: Band 17 % (5-11); Hematocrit 31.9 % (42.0-52.0); Macrocytosis SLIGHT = 6-15 cells (100X) (0-5/hpf); Mean Platelet Volume 9.3 fL (7.4-10.4); Metamyelocyte 1 % (0-0); Myelocyte 1 % (0-0); Neutrophil 68 % (42-75); Nucleated RBC 2 % (0); Polychromasia MODERATE = 3-4 cells (100X) (0-2/hpf); Reactive Lymphocytes 1 % (0-10); Red Blood Cell (RBC) Count 3.09 mill/uL (4.70-6.10); White Blood Cell (WBC) Count 25.8 thou/uL (4.8-10.8)
[2017-03-27] MEDS: Famotidine/PF 20 mg/2ml Vial SLOW IVP SCH (08:22)
[2017-03-27] MEDS: NPH, Human Insulin Isophane 300 UNIT/3 ML VIAL SC SCH (08:22)
[2017-03-27] MEDS: Docusate 100 MG CAP PO SCH ×2 (08:23→21:17)
--- NOTE | 2017-03-27 08:54 | RAD ---
PORTABLE CHEST: History: Dyspnea. CCU follow up. Comparison: 03-26-17 FINDINGS: Right sided effusion and right basilar atelectasis and/or consolidation remains. Some of this effusio n may be loculated. There is patchy infiltrate in the right midlung which is slightly more prominent today. Left lung remains clear and unchanged. Mild cardiomegaly again noted. IMPRESSION: Right lung findings again noted as described. POS: [facility]
[2017-03-27] MEDS: Ketorolac Tromethamine 30 MG/ML VIAL IVP PRN ×2 (09:31→15:13)
[2017-03-27] MEDS: Magnesium Oxide 400 MG TAB PO PRN (09:31)
--- NOTE | 2017-03-27 13:31 | PRG ---
DATE OF SERVICE: 03/27/2017 SERVICE: Pulmonary Medicine. INTERVAL HISTORY: The patient's mentation has improved somewhat. He appears to be a little less con fused and is conversive this morning. He is following all commands, but still a little bit confused. He denies any current fevers, chills, nausea, or vomiting. There were no overnight events. PHYSICAL EXAMINATION: VITAL SIGNS: Afebrile, pulse 92, blood pressure 120/63, respirations 27, saturation 100% on 3 liters nasal cannula. GENERAL: The patient is awake and alert, in no apparent distress. LUNGS: Decent air entry. There is no prolonged expiratory phase. I appreciate no wheezing, rhonchi , or crackles today. HEART: Normal rate, regular. ABDOMEN: Soft, nontender, nondistended. Bowel sounds are positive. MUSCULOSKELETAL: No cyanosis or clubbing. No pitting in the bilateral lower extremities. NEUROLOGIC: Grossly nonfocal. LABORATORY DATA: WBC 25.8, hemoglobin 10.2, platelets 212,000. Band count is increasing to 17%. PH 7.47, pCO2 of 30, pO2 of 98. Potassium 3.5 and sodium has returned to the normal range of 144. Cre atinine 0.87, which has now returned to essentially normal. Phosphorus 2.1. CK is down trending to 4900. Blood cultures x3 are unremarkable; 1/4 is growing bacillus species. Urine culture was origin ally growing Streptococcus, but is now unremarkable. Respiratory cultures negative to date. IMAGING: Chest x-ray demonstrates prominent patchy infiltrate in the right midlung zone. There is a right-sided pleural effusion, which is essentially unchanged. Otherwise, there is no acute cardiopu lmonary abnormality. ASSESSMENT: 1. Acute hypoxic respiratory failure. 2. Metabolic encephalopathy, improving. 3. Severe sepsis. 4. Community-acquired pneumonia. 5. Hemothorax secondary to sneeze. 6. Acute blood loss anemia. 7. Recrudescence of sepsis syndrome. PLAN: We will continue supportive care. The patient is actually clinically improving. Potassium an d magnesium will be replaced today. He is tolerating most of his diet. I will decrease his D5 water . He does remain exquisitely tender to palpation on the belly. Based on what I am told, this is act ually improved compared to last week. Furthermore, CT scan of the belly from 3 days ago did not demo nstrate an intraperitoneal process. He is tolerating p.o. and he is continuing to have output from h is ostomy. His mentation is also improving. As such, supportive care including antibiotics will be continued. We will continue efforts on mobilizing him. If we are successful at this, the Mandel cath eter will be discontinued as well. He will remain in the ICU.
[2017-03-27 13:45] LABS: Hematocrit 32.5 % (42.0-52.0)
[2017-03-27] MEDS: Potassium Chloride 40 MEQ in Premix Bag 1 BAG IVPB PRN (14:22)
[2017-03-27] MEDS: DEXTROSE IV SCH ×3 (14:58)
[2017-03-27] MEDS: WATER IV SCH ×3 (14:58)
[2017-03-27] MEDS: POTASSIUM CHLORIDE IV SCH ×3 (14:58)
[2017-03-27] MEDS: ADMIXTURE FEE IV SCH ×3 (14:58)
--- NOTE | 2017-03-27 15:56 | PDOC.PN ---
- Subjective Encounter Start Date: 03/27/17 Encounter Start Time: 14:00 Patient seen and examined. SOB - on NIPPV. Diarrhea +. No overnight events. Lambert fine earlier today - Objective MAR Reviewed: Yes Vital Signs & Weight: Vital Signs (12 hours) Temp Pulse Pulse Pulse Pulse Resp BP 03/27/17 15:30 80 03/27/17 15:28 79 41 H 03/27/17 12:00 97.6 F 03/27/17 10:45 92 03/27/17 10:43 93 33 H 03/27/17 10:00 86 92 90 105/47 L 03/27/17 08:00 98.0 F 90 30 H 03/27/17 07:28 03/27/17 07:23 85 22 H BP BP Pulse Ox Pulse Ox Pulse Ox Pulse Ox 03/27/17 15:30 03/27/17 15:28 97 03/27/17 12:00 100 03/27/17 10:45 03/27/17 10:43 99 03/27/17 10:00 108/51 L 131/50 L 99 98 95 03/27/17 08:00 99 03/27/17 07:28 97 03/27/17 07:23 97 Weight Admit Weight 211 lb Weight 212 lb 4.882 oz Most Recent Monitor Data Heart Rate from ECG 81 NIBP 103/54 NIBP BP-Mean 67 Respiration from ECG 39 SpO2 97 I&O: 03/26/17 03/27/17 03/28/17 06:59 06:59 06:59 Intake Total 2164 3416 450 Output Total 2200 1575 280 Balance -36 1841 170 Result Diagrams: 03/27/17 13:37 03/27/17 06:58 Additional Labs: Accuchecks 03/27/17 03/27/17 03/26/17 10:50 04:14 23:39 POC Glucose 326 H 177 H 224 H 03/26/17 03/26/17 21:12 16:46 POC Glucose 236 H 209 H Laboratory Tests 03/27/17 06:58 Phosphorus 2.1 L Creatine Kinase 4944 H Radiology Reviewed by me: Yes (CXR - Rt sided consolidation) EKG Reviewed by me: Yes (Tele SR) Phys Exam - Physical Examination Constitutional: NAD Respiratory: no wheezing, no rhonchi Dec AE at Rt base Cardiovascular: RRR, no rub Gastrointestinal: soft, non-tender, positive bowel sounds Musculoskeletal: no edema Neurological: moves all 4 limbs Dx/Plan - Plan IMPRESSION: 1. Acute hypoxic respiratory failure. s/p Mech Vent. Now on NIPPV 2. Toxic metabolic encephalopathy. improving 3. Community-acquired pneumonia with pleural effusion/ hemothorax with acute blood loss anemia. s/p drainage with CT (Chest tube dced) - on Zosyn. Completed Azithromycin 4. Ileus/Diarrhea - Started on Flagyl, Stool for Cdiff sent earlier. 5. Acute kidney injury on chronic kidney disease stage 2. improved 6. Hyperkalemia secondary to acute kidney injury with metabolic acidosis. improved 7. Rhabdomyolysis. CK improving 8. Abnormal troponins, probably secondary to demand ischemia. 9. Severe sepsis with acute organ dysfunction secondary to pneumonia. 10. Hyponatremia, probably secondary to hyperglycemia. 11. Peripheral vascular disease. on ASA. Plavix on hold 12. Diabetes mellitus type 2.- on sliding scale 13. Hypertension. 14. Anxiety/depression. 15. Peripheral neuropathy. 16. Chronic pain syndrome. 17. Hyperlipidemia. 18. Gastroesophageal reflux disease. 19. Coronary artery disease. on ASA 20. Peripheral vascular disease with stent. on ASA 21. Carotid artery disease with stent 22. Benign prostatic hypertrophy. 23. Chronic obstructive pulmonary disease. - on nebs 24. Metabolic acidosis/lactic acidosis. resolved PLAN: * On Zosyn * Flagyl started * Await Stool for Cdiff * On NIPPV * Cont to monitor * Plavix on hold * AM labs including CK * Cont current meds as below Review of Systems - Review of Systems Respiratory: negative: Cough, Dry, Shortness of Breath, Hemoptysis, SOB with Excertion, Pleuritic Pain, Sputum, Wheezing Cardiovascular: negative: Chest Pain, Palpitations, Orthopnea, Paroxysmal Noc. Dyspnea, Edema, Light Headedness Gastrointestinal: negative: Nausea, Vomiting, Abdominal Pain, Diarrhea, Constipation, Melena, Hematochezia - Medications/Allergies Allergies/Adverse Reactions: Allergies Allergy/AdvReac Type Severity Reaction Status Date / Time No Known Allergies Allergy Verified 08/08/16 08:56 Medications: Current Medications Acetaminophen (Tylenol) 650 mg FL Q6H PRN PRN Reason: Fever > 101 or Mild Pain Last Admin: 03/24/17 00:13 Dose: 650 mg Acetaminophen (Tylenol Elixir) 650 mg PO Q6H PRN PRN Reason: Fever > 101 or Mild Pain Last Admin: 03/22/17 20:52 Dose: 650 mg Albuterol/Ipratropium (Duoneb) 3 ml NEB [id number] MIKE Last Admin: 03/27/17 15:28 Dose: 3 ml Albuterol/Ipratropium (Duoneb) 3 ml NEB [id number] PRN PRN Reason: SOB &/or Wheezing Aspirin (Aspirin Chewable) 81 mg PER TUBE DAILY [facility] Last Admin: 03/27/17 08:22 Dose: 81 mg Bisacodyl (Dulcolax) 10 mg FL DAILYPRN PRN PRN Reason: Constipation Last Admin: 03/25/17 08:44 Dose: 10 mg Docusate Sodium (Colace) 100 mg PO BID [facility] Last Admin: 03/27/17 08:23 Dose: Not Given Famotidine (Pepcid) 20 mg PO Q12HR MIKE Hydralazine HCl (Apresoline) 10 mg SLOW IVP Q6H PRN PRN Reason: FOR SBP > 180 Last Admin: 03/24/17 04:27 Dose: 10 mg Piperacillin Sod/Tazobactam (Sod 3.375 gm/ Sodium Chloride) 100 mls @ 200 mls/ hr IVPB Q8HR [facility] Last Admin: 03/27/17 13:49 Dose: 100 mls Potassium Chloride 40 meq/ (Sodium Chloride) 270 mls @ 135 mls/hr IVPB ASDIR PRN PRN Reason: FOR SERUM K+ 2.5 - 3.5 Last Admin: 03/25/17 10:55 Dose: 270 mls Potassium Chloride 40 meq/ (Device) 100 mls @ 50 mls/hr IVPB ASDIR PRN PRN Reason: FOR SERUM K+ 2.5 - 3.5 Last Admin: 03/27/17 14:22 Dose: 100 mls Magnesium Sulfate 1 gm/ Sodium (Chloride) 102 mls @ 102 mls/hr IV PRN PRN PRN Reason: MAG LEVEL 1.4 - 2.0 Magnesium Sulfate 2 gm/ Device 100 mls @ 100 mls/hr IVPB ASDIR PRN PRN Reason: MAGNESIUM < 1.4 Last Admin: 03/27/17 10:48 Dose: 100 mls Potassium Phosphate 9 mmol/ (Sodium Chloride) 103 mls @ 25.75 mls/hr IVPB ASDIR PRN PRN Reason: Phosphate 1.0-1.8 Potassium Phosphate 12 mmol/ (Sodium Chloride) 254 mls @ 63.5 mls/hr IV ASDIR PRN PRN Reason: Serum phosphate 0.5-0.9 Potassium Phosphate 15 mmol/ (Sodium Chloride) 255 mls @ 63.75 mls/hr IV ASDIR PRN PRN Reason: Serum Phos < 0.5 Potassium Chloride 10 meq/Miscellaneous Medication 1 each/ Dextrose/Water 1, 005 mls @ 75 mls/hr IV .[id number] [facility] Last Admin: 03/27/17 14:58 Dose: 1,005 mls Metronidazole 500 mg/ Device 100 mls @ 100 mls/hr IVPB Q8HR [facility] Insulin Human NPH (Humulin N) 15 unit SC DAILY [facility] Last Admin: 03/27/17 08:22 Dose: 15 unit Insulin Human Regular (Humulin R) 0 units SC .MODERATE SLIDING SC PRN PRN Reason: Moderate Correctional Scale Last Admin: 03/27/17 10:52 Dose: 8 unit Ketorolac Tromethamine (Toradol) 30 mg IVP Q6H PRN PRN Reason: Pain Stop: 03/30/17 08:03 Last Admin: 03/27/17 15:13 Dose: 30 mg Lactulose (Lactulose) 20 gm PO DAILYPRN PRN PRN Reason: Constipation Magnesium Oxide (Magnesium Oxide) 400 mg PO BIDPRN PRN PRN Reason: FOR SERUM MAG 1.4 - 2.0 Magnesium Oxide (Magnesium Oxide) 800 mg PO PRN PRN PRN Reason: FOR SERUM MAG < 1.4 Mineral Oil/White Petrolatum (Lacri-Lube Ointment) 0 gm EA EYE PRN PRN PRN Reason: Dry Eyes Miscellaneous Medication (Pharmacy To Dose) 1 each IVPB PRN PRN PRN Reason: Pharmacy to dose Miscellaneous Medication (Phos-Nak) 1 pkt PO TIDPRN PRN PRN Reason: FOR PHOS LEVEL 1.0 - 1.8 Miscellaneous Medication (Phos-Nak) 2 pkt PO TIDPRN PRN PRN Reason: FOR PHOS LEVEL 0.5 - 1.0 Ondansetron HCl (Zofran) 4 mg IVP Q6H PRN PRN Reason: Nausea/Vomiting Potassium Chloride (K-Dur) 40 meq PO ASDIR PRN PRN Reason: FOR SERUM K+ 2.5 - 3.5 Potassium Chloride (Klor-Con) 40 meq PER TUBE ASDIR PRN PRN Reason: FOR SERUM K+ 2.5-3.5 Sodium Chloride (Flush - Normal Saline) 10 ml IVF Q12HR MIKE Last Admin: 03/27/17 08:23 Dose: 10 ml Sodium Chloride (Flush - Normal Saline) 10 ml IVF PRN PRN PRN Reason: Saline Flush
[2017-03-27] MEDS: Ondansetron HCl/PF 4 MG/2 ML Vial IVP PRN (16:05)
[2017-03-27] MEDS: metroNIDAZOLE 500 MG in Premix Bag 1 BAG IVPB SCH (17:00)
[2017-03-27] MEDS ORDERED: Sodium Chloride 0.9% 1,000 ML IV SCH (18:00)
[2017-03-27] MEDS: Famotidine 20 MG TAB PO SCH (21:17)
[2017-03-28] MEDS: metroNIDAZOLE 500 MG in Premix Bag 1 BAG IVPB SCH ×4 (00:02→23:35)
[2017-03-28] MEDS: WATER IV SCH ×6 (05:29→11:55)
[2017-03-28] MEDS: DEXTROSE IV SCH ×6 (05:29→11:55)
[2017-03-28] MEDS: POTASSIUM CHLORIDE IV SCH ×6 (05:29→11:55)
[2017-03-28] MEDS: ADMIXTURE FEE IV SCH ×6 (05:29→11:55)
[2017-03-28] MEDS: Piperacillin/Tazobactam 3.375 GM in Sodium Chloride 0.9% 100 ML IVPB SCH ×3 (05:29→22:27)
[2017-03-28] MEDS ORDERED: Lorazepam 2 MG/ML VIAL SLOW IVP SCH (05:30)
[2017-03-28 06:07] LABS: Anion Gap 16 mmol/L (10-20); BUN (Urea Nitrogen) 35 mg/dL (8.4-25.7); BUN/Creatinine Ratio 27.78; CK (CPK) 2291 U/L (30-200); Calc. Creatinine Clearance 71 mL/min (70-130); Calcium 7.4 mg/dL (7.8-10.44); Carbon Dioxide 19 mmol/L (23-31); Chloride 111 mmol/L (98-107); Estimated GFR-MDRD 56; Magnesium 2.3 mg/dL (1.6-2.6); Phosphorus 3.8 mg/dL (2.3-4.7)
[2017-03-28] MEDS: Insulin Regular 300 UNITS/3 ML VIAL SC PRN ×4 (06:12→23:28)
[2017-03-28 07:01] LABS: Anisocytosis SLIGHT = 6-15 cells (100X) (0-5/hpf); Band 48 % (5-11); Hematocrit 34.8 % (42.0-52.0); Macrocytosis SLIGHT = 6-15 cells (100X) (0-5/hpf); Mean Platelet Volume 9.3 fL (7.4-10.4); Metamyelocyte 2 % (0-0); Myelocyte 1 % (0-0); Neutrophil 40 % (42-75); Nucleated RBC 8 % (0); Red Blood Cell (RBC) Count 3.32 mill/uL (4.70-6.10); White Blood Cell (WBC) Count 10.8 thou/uL (4.8-10.8)
[2017-03-28] MEDS: NPH, Human Insulin Isophane 300 UNIT/3 ML VIAL SC SCH (08:17)
[2017-03-28] MEDS: Famotidine 20 MG TAB PO SCH ×2 (08:27→22:28)
[2017-03-28] MEDS: Docusate 100 MG CAP PO SCH ×2 (08:27→22:28)
[2017-03-28] MEDS ORDERED: Midazolam HCl 2 mg/2 ml Vial IVP SCH (09:15)
[2017-03-28] MEDS ORDERED: Sedation Protocol FS ONE (09:54)
[2017-03-28] MEDS ORDERED: DISCONTINUE PREVIOUS NARCOTIC PAIN MEDICATIONS AND BENZODIAZEPINES FS SCH (10:01)
[2017-03-28] MEDS ORDERED: Lorazepam 2 MG/ML VIAL SLOW IVP PRN (10:01)
[2017-03-28] MEDS ORDERED: Fentanyl 20 MCG/ML 250 ML IVPB SCH (10:01)
[2017-03-28] MEDS ORDERED: Morphine 4 MG/ML VIAL SLOW IVP PRN (10:15)
[2017-03-28] MEDS ORDERED: Norepinephrine 8 MG/0.9% NS 250 ML ONE ×2 (10:15→17:14)
--- NOTE | 2017-03-28 10:19 | RAD ---
PORTABLE CHEST: History: Respiratory distress. Intubation. FINDINGS: Endotracheal tube has bene placed which is in satisfactory position. NG tube is below the hemidiaphra gm. Right sided pleural and parenchymal lung changes show fairly similar changes to the prior exam gi lynne the less pronounced inspiration. IMPRESSION: Interval placement of the endotracheal and NG tubes which are in satisfactory position. Otherwise no significant change since the prior day's exam. POS: [facility]
[2017-03-28] MEDS ORDERED: VANCOMYCIN IVPB PRN (10:21)
[2017-03-28 10:35] LABS: Oxyhemoglobin 77.2 % (94.0-97.0); Sodium 143 mmol/L (135-148)
[2017-03-28 10:36] LABS: Modified Allen's Test POSITIVE; Vent YES
[2017-03-28 10:38] LABS: Mode SIMV/ PI=21
[2017-03-28 10:52] LABS: Oxyhemoglobin 93.6 % (94.0-97.0); Sodium 145 mmol/L (135-148)
[2017-03-28 10:56] LABS: Modified Allen's Test POSITIVE; Vent YES
[2017-03-28 10:57] LABS: Mode AC/PI=25
[2017-03-28] MEDS: Amiodarone In Dextrose,Iso-Osm 200 ML IVPB SCH ×2 (11:00→16:28)
[2017-03-28 11:15] LABS: Troponin I 0.063 ng/mL (< 0.028)
--- NOTE | 2017-03-28 11:23 | RAD ---
RADIOGRAPH CHEST 1 VIEW: Date: 03-28-17 Time: 10:48 a.m. HISTORY: 72-year-old male with respiratory failure, status post intubation. COMPARISON: 03-28-17 at 9:20 a.m. FINDINGS: Endotracheal tube remains with distal tip in the mid thoracic trachea. NG tube remains. There is a ne w central vascular catheter descending in the left neck, crossing the midline of the mediastinum such that the distal tip overlies the expected region of the superior vena cava. It is presumed that this catheter enters the left internal jugular vein. There is no evidence of pneumothorax. No pulmonary e sunshine. The left lung remains relatively clear. Again noted is the moderate sized right pleural effusio n. Again noted are the airspace densities adjacent to the right pleural effusion, reaching the right midlung zone as well as the right base. These airspace densities have worsened somewhat. IMPRESSION: 1. Interval placement of the left internal jugular central venous catheter without pneumothorax. 2. Endotracheal tube and NG tube remain. 3. Right pleural effusion remains. 4. Right sided airspace densities have worsened. LANETTE POS: [facility]
[2017-03-28] MEDS: Vancomycin HCl 1.5 GM in Sodium Chloride 0.9% 250 ML 300 ML IVPB SCH ×2 (11:38→11:42)
--- NOTE | 2017-03-28 12:06 | ULT ---
ULTRASOUND WITH DOPPLER DUPLEX VENOUS LOWER EXTREMITIES BILATERAL: Date: 03/28/17 HISTORY: 72-year-old male with bilateral lower extremity edema. TECHNIQUE: Color flow Doppler, spectral waveform analysis of pulsed Doppler, and mena-scale imaging with wilber robert and augmentation, were used to evaluate the bilateral common femoral, femoral, popliteal, per diem nurse ior tibial, and superficial femoral, veins; and the proximal portions of the profunda femoral and gre ater saphenous, veins. FINDINGS: There is normal compressibility, demonstration of blood flow by color Doppler and pulsed Doppler, and response to augmentation, in all interrogated veins. IMPRESSION: Negative. No deep vein thrombosis in the bilateral lower extremities. trini[] POS: [facility]
[2017-03-28] MEDS ORDERED: Rocuronium Bromide 50 MG/5 ML VIAL IVP SCH (12:15)
--- NOTE | 2017-03-28 12:44 | OP-2 ---
ENDOTRACHEAL INTUBATION PROCEDURE NOTE TRAVELING STOREKEEPER: Manjeet Guan D.O. ATTENDING: Ryan Sanderson M.D. DESCRIPTION OF PROCEDURE: A timeout was completed and verifying correct patient, procedure site, pos itioning, patient was placed in a flat position. Sedation was obtained using Versed 2 mg as well eto midate 20 mg. The patient was easily ventilated under his own power until sedation was obtained. Th e GlideScope was used and inserted into the oropharynx at which time, there was a grade 1 view of the vocal cords. A 7.5 Fijian endotracheal tube was inserted and visualized going through the vocal cor ds. The stylet was removed. Placement was confirmed with fogging of the tube and symmetric breath s ounds on auscultation of the lungs. The endotracheal tube was placed at 23 cm, measured at the lips. Dr. Sanderson was present for the entire procedure. Chest x-ray was ordered to assess for pneumothorax and verify endotracheal tube placement. ESTIMATED BLOOD LOSS: Zero milliliter. The patient tolerated procedure well. There were no complications.
[2017-03-28] MEDS ORDERED: Norepinephrine 8 MG/250 ML BAG IVPB PRN (13:12)
[2017-03-28 14:33] LABS: Troponin I 0.082 ng/mL (< 0.028)
[2017-03-28] MEDS: Propofol 1,000 MG/100 ML VIAL IV PRN (14:37)
[2017-03-28] MEDS ORDERED: Adenosine 6 MG/2 ML VIAL ONE (14:45)
[2017-03-28] MEDS ORDERED: Dextrose 50% Abboject 50 ML SYRINGE ONE (14:45)
[2017-03-28] MEDS ORDERED: Sodium Bicarb 50 MEQ/50 ML Abboject 8.4% SYRINGE ONE (14:45)
[2017-03-28] MEDS ORDERED: EPINEPHrine 1 MG/10 ML Abboject SYRINGE ONE (14:45)
--- NOTE | 2017-03-28 14:57 | PRG ---
DATE OF SERVICE: 03/28/2017 SERVICE: Pulmonary Medicine. INTERVAL HISTORY: The patient did poorly overnight. His respiratory rate settled down initially, bu t then he started picking back up a little bit. We got an ABG early this morning and he had a respir atory alkalosis. We gave him a dose of Ativan. He settled down a little bit, but he remained tachyp neic. We electively intubated him. Roughly 10-15 minutes after he was intubated, he had a rectal tu be placed. He went into an abnormal rhythm and lost pulse. He required roughly 5 minutes of chest c ompressions when he had return of circulation. At that point, it initially appeared that he was in V -Tach. That being said, later on it could be that he had aberrancy with atrial fibrillation as he wa s in and out of atrial fibrillation. He ended up getting 2 rounds of defibrillation. He got was luli e epinephrine, amiodarone, and 2 doses of bicarbonate. Either way, he did have return of circulation . Left IJ catheter was placed shortly following the code event. PHYSICAL EXAMINATION: VITAL SIGNS: Afebrile, pulse 75, blood pressure 139/45, respirations 27, saturation 94% on 60% FiO2 and a PEEP of 8 after the code. HEENT: Normocephalic, atraumatic. Sclerae are white, conjunctivae pink. Oral and nasal mucosa is m oist without lesions. LUNGS: Decent air entry. Prior to the code, there is no prolonged expiratory phase, wheezing, rhonc hi or crackles. After the code, he had prolonged expiratory phase with little bit of wheezing, but h e was moving decent air. He had some rhonchi present. HEART: Currently normal rate and regular. ABDOMEN: Distended. Tender to palpation throughout. Bowel sounds are hypoactive. GENITOURINARY: Mandel catheter in place. NEUROLOGIC: He is following all commands before the code. Shortly following the code, he did have p upils that are equal, round, and reactive. He spontaneously opened up his eyes. He is still a littl e bit sleepy and is not withdrawing from noxious stimuli presently. LABORATORY DATA: WBC 10.8, hemoglobin 11.1, and platelets 260,000. His band count has dramatically increased to 48% with 40% neutrophils on top of that. INR 1.2. A pH 7.24, pCO2 42, and pO2 87. Cre atinine 1.26, which is trending upward, bicarbonate 19 and roughly stable. Basic metabolic profile a nd liver function studies were otherwise unremarkable. CK is trending downward to 2200. Cardiac enz yme is essentially stable following code event. Lactate was only 2.8 shortly following code. Blood cultures x3 are negative. Urine culture x2 is negative. Respiratory culture is also unremarkable. IMAGIN. Ultrasound demonstrates no evidence of DVTs. 2. Chest x-ray demonstrates interval placement of the left IJ central venous catheter without eviden ce of pneumothorax. Endotracheal tube and NG tube are in good position. There is a right pleural ef fusion which is identified. Right side airspace densities have gotten worse. ASSESSMENT: 1. Acute hypoxic respiratory failure. 2. Community-acquired pneumonia. 3. Metabolic encephalopathy. 4. Septic shock. 5. Hemothorax secondary to septic shock. 6. Healthcare-associated pneumonia. 7. Metabolic encephalopathy. 8. Hemothorax secondary to sneeze. 9. Acute blood loss anemia. 10. Abdominal distention. PLAN: Now the patient is stabilized post-code, we are going to send him down for CT scan of the abdo men and pelvis. Hopefully, his urine output will belt picker and he will not suffer significant injury. Two liters of fluid have already been given. We are going to broaden out our antibiotic coverage. Yesterday, we empirically covered C. diff. We did send a sample down this morning as he finally had a bowel movement. That being said, the results of those studies are not presently known. We will ad d IV vancomycin. The patient is currently on pressors. These will be weaned away as tolerated. Pul monary and Critical Care will certainly continue to follow while the patient is in this location. I have updated the at bedside. She does understand the patient is critically ill and there is a p ossibility that he could recover from this. That being said, we still do not know whether or not his brain is going to recover from his recent event. Cardiology consultation was placed. Critical care time: 100 minutes.
[2017-03-28] MEDS ORDERED: PHENYLEPHRINE-NS 100 MCG/ML 10 ML SYRINGE ONE (15:37)
--- NOTE | 2017-03-28 16:30 | CT ---
CT ABDOMEN AND PELVIS WITH CONTRAST: 03/28/17 Multiple axial tomograms obtained through the abdomen and pelvis with IV enhancement. HISTORY: Abdominal pain. Possible ileus. Comparison made to recent CT abdomen and pelvis dated 03/24/17. Lucency of the lung bases continue to show dense opacification in the right lung base. There is appar ent loculated fluid in the right lung base. There are at least two small air pockets along the latera l border of this fluid. This could represent developing empyema associated with dense right basilar c onsolidation. Small amount of free fluid around the liver margin. There are opacities in the neck of the gallbladder consistent with gallstones. The liver, spleen and pancreas are unremarkable. Stomach unremarkable. There is mild fold thickening and dilatation of the duodenum and jejunum. There is dilatation of the proximal jejunum measuring up to 5 cm. The mid and distal small bowel loops are completely decompress ed. There is a loop of jejunum in the upper mid abdomen to the left of midline which shows mural thic kening and some tiny extraluminal gas pocket surrounding this loop which is worrisome for possible pe rforation at this site. There is a large amount of free intraperitoneal air seen anteriorly in the up per and mid abdomen. In addition, the left colon appears abnormal with evidence of mural thickening, pneumatosis, and tiny pockets of free extraluminal air surrounding this bowel. Patient is post right colectomy. Small amount of free fluid in the abdomen and pelvis. Aortic aneurysm again noted. IMPRESSION: 1. Large amount of free intraperitoneal air. Significant dilatation of jejunal loops with decomp ressed mid and distal small bowel loops indicating a high grade small bowel obstruction in the proxim al small bowel. Loop of jejunum shows mural thickening and extraluminal gas pockets which may represe nt the site of perforation leading to large amount of free intraperitoneal air. 2. Left colon is abnormal with mural thickening, pneumatosis, and tiny extraluminal gas pockets. 3. There is a large amount of fluid in the right lung base with dense atelectasis/consolidation of the right lower lobe. Tiny air pocket peripherally is present and empyema cannot be excluded. 4. Cholelithiasis again noted. Findings discussed with Dr. Sanderson. POS: [facility]
[2017-03-28] MEDS ORDERED: Fentanyl 250 MCG/5 ML VIAL ONE (16:58)
[2017-03-28] MEDS ORDERED: Phenylephrine 10 MG/NS 250 ML 0 ML ONE (17:14)
[2017-03-28 18:11] LABS: Troponin I 0.084 ng/mL (< 0.028)
--- NOTE | 2017-03-28 18:41 | PDOC.PN ---
- Subjective Encounter Start Date: 03/28/17 Encounter Start Time: 18:41 Patient seen and examined. Events noted. CT abd - perforation. Surg consulted. On Amio/Levophed drip - Objective MAR Reviewed: Yes Vital Signs & Weight: Vital Signs (12 hours) Temp Pulse Resp BP Pulse Ox 03/28/17 15:00 97.0 F L 03/28/17 14:46 78 113/43 L 03/28/17 12:00 96.6 F L 03/28/17 10:44 97 03/28/17 10:41 87 115/52 L 03/28/17 10:15 74 86/47 L 03/28/17 09:40 79 79/40 L 03/28/17 08:00 96.6 F L 108 H 28 H 03/28/17 07:39 82 94 L 03/28/17 07:38 82 42 H 94 L Weight Admit Weight 211 lb Weight 211 lb 10.3 oz Most Recent Monitor Data Heart Rate from ECG 74 NIBP 111/53 NIBP BP-Mean 69 Respiration from ECG 29 SpO2 95 I&O: 03/27/17 03/28/17 03/29/17 06:59 06:59 06:59 Intake Total 3416 2354 2260.1 Output Total 1575 1155 1110 Balance 1841 1199 1150.1 Result Diagrams: 03/28/17 21:54 03/29/17 06:40 Additional Labs: Accuchecks 03/28/17 03/28/17 03/28/17 16:37 12:07 08:13 POC Glucose 300 H 276 H 247 H 03/28/17 03/28/17 03/27/17 06:08 00:00 19:21 POC Glucose 232 H 184 H 140 H Radiology Reviewed by me: Yes (CT abd perforation) EKG Reviewed by me: Yes (Tele SR) Phys Exam - Physical Examination Pt is intubated/sedated on Mech Vent Respiratory: no wheezing Bibasilar rales with scat rhonchi. Symmetrical Dec AE at Rt base Cardiovascular: RRR, no rub no heaves/pulsations Abd - distended/tense. No BS Musculoskeletal: edema present Neuro/Psyc - cannot assess due to sedation Dx/Plan - Plan DVT proph w/SCDs IMPRESSION: 1. Bowel perforation (03/28) 2. s/p Code Blue/Cardiac arrest/Vent arrhythmia requiring CPR (03/28)- on Pressors/Amiodarone drip 3. Acute hypoxic respiratory failure (03/20) s/p Mech Vent. reintubated 4. Toxic metabolic encephalopathy. - multifactorial 5. Community-acquired pneumonia with pleural effusion/ hemothorax with acute blood loss anemia. s/p drainage with CT (Chest tube dced) - on Zosyn since admission (Vanc/Flagyl added on 03/28). Completed Azithromycin 6. Metabolic acidosis/lactic acidosis 7. Severe sepsis with acute organ dysfunction 8. Rhabdomyolysis. CK improving 9. Abnormal troponins, probably secondary to demand ischemia. 10. Peripheral vascular disease/Carotid artery disease/Coronary artery disease. on ASA. Plavix on hold 11. Diabetes mellitus type 2.- on sliding scale 12. h/o Hypertension. 13. Anxiety/depression. 14. Peripheral neuropathy/Chronic pain syndrome. 15. Hyperlipidemia. 16. Gastroesophageal reflux disease. 17. Benign prostatic hypertrophy. 18. Chronic obstructive pulmonary disease. - on nebs 19. Hyponatremia/Acute kidney injury on chronic kidney disease stage 2/ Hyperkalemia.resolved PLAN: * On Zosyn/Vanc/Flagyl/Pressors/Amiodarone * Gen surg/Cardiology consulted * Cont current supportive care * Critical care following * Plavix on hold * AM labs including CK * Cont current meds as below Review of Systems - Review of Systems Other: Cannot obtain due to sedation - Medications/Allergies Allergies/Adverse Reactions: Allergies Allergy/AdvReac Type Severity Reaction Status Date / Time No Known Allergies Allergy Verified 08/08/16 08:56 Medications: Current Medications Acetaminophen (Tylenol) 650 mg TN Q6H PRN PRN Reason: Fever > 101 or Mild Pain Last Admin: 03/24/17 00:13 Dose: 650 mg Acetaminophen (Tylenol Elixir) 650 mg PO Q6H PRN PRN Reason: Fever > 101 or Mild Pain Last Admin: 03/22/17 20:52 Dose: 650 mg Albuterol/Ipratropium (Duoneb) 3 ml NEB [id number] ON LICENSE OF [facility] Last Admin: 03/28/17 14:45 Dose: 3 ml Albuterol/Ipratropium (Duoneb) 3 ml NEB [id number] PRN PRN Reason: SOB &/or Wheezing Aspirin (Aspirin Chewable) 81 mg PER TUBE DAILY ON LICENSE OF [facility] Last Admin: 03/28/17 08:27 Dose: Not Given Bisacodyl (Dulcolax) 10 mg TN DAILYPRN PRN PRN Reason: Constipation Last Admin: 03/25/17 08:44 Dose: 10 mg Docusate Sodium (Colace) 100 mg PO BID ON LICENSE OF [facility] Last Admin: 03/28/17 08:27 Dose: Not Given Famotidine (Pepcid) 20 mg PO Q12HR ON LICENSE OF [facility] Last Admin: 03/28/17 08:27 Dose: Not Given Hydralazine HCl (Apresoline) 10 mg SLOW IVP Q6H PRN PRN Reason: FOR SBP > 180 Last Admin: 03/24/17 04:27 Dose: 10 mg Piperacillin Sod/Tazobactam (Sod 3.375 gm/ Sodium Chloride) 100 mls @ 200 mls/ hr IVPB Q8HR ON LICENSE OF [facility] Last Admin: 03/28/17 14:38 Dose: 100 mls Potassium Chloride 40 meq/ (Sodium Chloride) 270 mls @ 135 mls/hr IVPB ASDIR PRN PRN Reason: FOR SERUM K+ 2.5 - 3.5 Last Admin: 03/25/17 10:55 Dose: 270 mls Potassium Chloride 40 meq/ (Device) 100 mls @ 50 mls/hr IVPB ASDIR PRN PRN Reason: FOR SERUM K+ 2.5 - 3.5 Last Admin: 03/27/17 14:22 Dose: 100 mls Magnesium Sulfate 1 gm/ Sodium (Chloride) 102 mls @ 102 mls/hr IV PRN PRN PRN Reason: MAG LEVEL 1.4 - 2.0 Magnesium Sulfate 2 gm/ Device 100 mls @ 100 mls/hr IVPB ASDIR PRN PRN Reason: MAGNESIUM < 1.4 Last Admin: 03/27/17 10:48 Dose: 100 mls Potassium Phosphate 9 mmol/ (Sodium Chloride) 103 mls @ 25.75 mls/hr IVPB ASDIR PRN PRN Reason: Phosphate 1.0-1.8 Potassium Phosphate 12 mmol/ (Sodium Chloride) 254 mls @ 63.5 mls/hr IV ASDIR PRN PRN Reason: Serum phosphate 0.5-0.9 Potassium Phosphate 15 mmol/ (Sodium Chloride) 255 mls @ 63.75 mls/hr IV ASDIR PRN PRN Reason: Serum Phos < 0.5 Potassium Chloride 10 meq/Miscellaneous Medication 1 each/ Dextrose/Water 1, 005 mls @ 75 mls/hr IV .[id number] ON LICENSE OF [facility] Last Admin: 03/28/17 11:55 Dose: 1,005 mls Metronidazole 500 mg/ Device 100 mls @ 100 mls/hr IVPB 0000,0800,1600 ON LICENSE OF [facility] Last Admin: 03/28/17 15:04 Dose: 100 mls Fentanyl (Fentanyl Cadd) 250 mls @ 0 mls/hr IVPB INF MIKE; Titrate PRN Reason: Protocol Stop: 04/27/17 10:01 Fentanyl Citrate (Fentanyl Bolus) 250 mls @ 0 mls/hr IVPB PRN PRN; As Directed PRN Reason: VENTILATION SEDATION PROTOCOL Stop: 04/27/17 10:01 Vancomycin HCl 1.5 gm/ Sodium (Chloride) 300 mls @ 200 mls/hr IVPB 1100 ON LICENSE OF [facility] Last Admin: 03/28/17 11:42 Dose: 300 mls Amiodarone HCl/Dextrose (Nexterone) 200 mls @ 0 mls/hr IVPB INF MIKE; As Directed PRN Reason: Protocol Last Admin: 03/28/17 16:28 Dose: 200 mls Norepinephrine Bitartrate (Levophed) 250 mls @ 0 mls/hr IVPB INF PRN; Protocol ; Titrate PRN Reason: Blood Pressure Insulin Human NPH (Humulin N) 15 unit SC DAILY ON LICENSE OF [facility] Last Admin: 03/28/17 08:17 Dose: 15 unit Insulin Human Regular (Humulin R) 0 units SC .MODERATE SLIDING SC PRN PRN Reason: Moderate Correctional Scale Last Admin: 03/28/17 12:49 Dose: 6 unit Lactulose (Lactulose) 20 gm PO DAILYPRN PRN PRN Reason: Constipation Magnesium Oxide (Magnesium Oxide) 400 mg PO BIDPRN PRN PRN Reason: FOR SERUM MAG 1.4 - 2.0 Magnesium Oxide (Magnesium Oxide) 800 mg PO PRN PRN PRN Reason: FOR SERUM MAG < 1.4 Mineral Oil/White Petrolatum (Lacri-Lube Ointment) 0 gm EA EYE PRN PRN PRN Reason: Dry Eyes Miscellaneous Medication (Pharmacy To Dose) 1 each IVPB PRN PRN PRN Reason: Pharmacy to dose Miscellaneous Medication (Phos-Nak) 1 pkt PO TIDPRN PRN PRN Reason: FOR PHOS LEVEL 1.0 - 1.8 Miscellaneous Medication (Phos-Nak) 2 pkt PO TIDPRN PRN PRN Reason: FOR PHOS LEVEL 0.5 - 1.0 Miscellaneous Medication (Pharmacy To Dose) 1 each IVPB PRN PRN PRN Reason: Pharmacy to dose Morphine Sulfate (Morphine) 2 mg SLOW IVP Q2H PRN PRN Reason: TO ACHIEVE SALVATORE SCORE 2-3 Stop: 04/27/17 10:01 Discontinue Previous Narcotic Pain Medications And Benzodiazepines 1 each FS .ONE ON LICENSE OF [facility] Stop: 04/27/17 10:01 Ondansetron HCl (Zofran) 4 mg IVP Q6H PRN PRN Reason: Nausea/Vomiting Last Admin: 03/27/17 16:05 Dose: 4 mg Potassium Chloride (K-Dur) 40 meq PO ASDIR PRN PRN Reason: FOR SERUM K+ 2.5 - 3.5 Potassium Chloride (Klor-Con) 40 meq PER TUBE ASDIR PRN PRN Reason: FOR SERUM K+ 2.5-3.5 Propofol (Diprivan) 1,000 mg IV INF PRN; Protocol PRN Reason: TO ACHIEVE GRIFFITHS SCORE 2-3 Stop: 04/27/17 10:01 Last Admin: 03/28/17 14:37 Dose: 1,000 mg Sodium Chloride (Flush - Normal Saline) 10 ml IVF Q12HR ON LICENSE OF [facility] Last Admin: 03/28/17 08:27 Dose: Not Given Sodium Chloride (Flush - Normal Saline) 10 ml IVF PRN PRN PRN Reason: Saline Flush
[2017-03-28 22:22] LABS: Anion Gap 12 mmol/L (10-20); BUN (Urea Nitrogen) 46 mg/dL (8.4-25.7); Calc. Creatinine Clearance 51 mL/min (70-130); Calcium 6.2 mg/dL (7.8-10.44); Carbon Dioxide 21 mmol/L (23-31); Chloride 112 mmol/L (98-107); Estimated GFR-MDRD 39
[2017-03-28 22:32] LABS: Anisocytosis SLIGHT = 6-15 cells (100X) (0-5/hpf); Band 42 % (5-11); Hematocrit 27.1 % (42.0-52.0); Macrocytosis SLIGHT = 6-15 cells (100X) (0-5/hpf); Mean Platelet Volume 8.8 fL (7.4-10.4); Metamyelocyte 5 % (0-0); Neutrophil 40 % (42-75); Nucleated RBC 2 % (0); Polychromasia SLIGHT = 2-3 cells (100X) (0-2/hpf); Red Blood Cell (RBC) Count 2.51 mill/uL (4.70-6.10); White Blood Cell (WBC) Count 8.6 thou/uL (4.8-10.8)
[2017-03-28] MEDS ORDERED: Calcium Gluc 4.6 MEQ/10 ML (100 MG/ML) IV SCH (23:00)
[2017-03-28] MEDS ORDERED: Lactated Ringer's 1,000 ML IV SCH (23:00)
[2017-03-28] MEDS: Lactated Ringer's 1,000 ML IV SCH (23:22)
[2017-03-28] MEDS: Famotidine/PF 20 mg/2ml Vial IVPB SCH (23:35)
--- NOTE | 2017-03-28 23:50 | CON ---
DATE OF ADMISSION: 03/20/2017 DATE OF CONSULTATION: 03/28/2017 INDICATION FOR CONSULTATION: A 72-year-old gentleman with respiratory, possible cardiac arrest this morning with arrhythmias, we were asked to see him. He has a history of multiple risk factors for coronary artery disease. HISTORY OF PRESENT ILLNESS: This is a very unfortunate 72-year-old gentleman who has had a long history of peripheral vascular disease and has had diabetes and tobacco abuse. He was at home and about 10 days ago and had developed some right-sided chest pain after sneezing. He was seen in the emergency room. He then was sent home and said it was possibly some pain due to the coughing. He then presented again to the emergency room last Sunday, which is about 10 days ago now that he had been confused and had some ecchymosis on the left side, was admitted to the hospital, was noted to have a large right pleural effusion and NG tube is in place and since that time has also been removed. He did have a significant amount of blood removed from the chest and this was felt possibly due to consideration was given to the etiology of the fractured rib after he had begun to have severe coughing, but it is unclear if this is actual etiology or not. He was doing relatively well, but had been complaining of some abdominal discomfort and bloating and this morning, had developed respiratory distress and after the patient underwent intubation, apparently, then went into what appeared to be ventricular tachycardia or atrial fibrillation. He was started on IV amiodarone. Since that time, he has remained stable. The patient during that time from what the staff is telling me is that probably they were unable to ventilate the patient adequately, but once was bagged and intubated, then CPR was initiated. The patient then converted back to a sinus rhythm. He appears to have also a right bundle branch block. At this time, the heart rate is more stable. He actually appeared at one point in time earlier EKG after this event showed what appeared to be a junctional rhythm with a right bundle branch block. At this time, he appears to be back in a sinus rhythm with heart rates in the 70s. He is intubated. The is at the bedside. She gives most of the history. He has had no previous cardiac history , but has had a long history of lower extremity problems and peripheral vascular disease. He appears to be relatively stable. He is somewhat sedated, but is arousable at this time and is on the ventilator. PAST MEDICAL HISTORY: Significant for peripheral vascular disease, he has had left carotid endarterectomy that was redone. He has had back surgery 15 years ago which caused him to have left leg weakness. Eventually, he developed more complications and had actually left hip replacement which was a partial replacement and total replacement. He has had a left femoral artery bypass surgery. He has had some problems with blisters to the left foot which he eventually developed almost gangrenous type situation. He was seen by Dr. 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 He has recovered from that. He has had a partial bowel resection about 20 years ago for polyp. He has had a history of diabetes for about 15 years. He has a history of tonsillectomy. SOCIAL HISTORY: He is . He has 3 children with no heart disease. He smoked up to 1-2 packs a day for more than 50 years. He has occasional alcohol use. Most of the time he sits during the day due to his difficulties in ambulating due to the left leg. He said the left leg became weak after he had back surgery about 15 years ago. FAMILY HISTORY: Noncontributory. LISTED MEDICATIONS: At this time include amiodarone, which he received a bolus now he is on an infusion, he is on 81 mg of aspirin. He is on famotidine, fentanyl as needed, hydralazine IV. He is also on insulin sliding scale, albuterol treatments, p.r.n. medications. He is also on metronidazole. He is on piperacillin and vancomycin. ALLERGIES: None. REVIEW OF SYSTEMS: From the family, per his , he has some occasional diarrhea. He continues to smoke. He has had a left-sided pain. He has had some problems with ambulation due to his peripheral vascular disease. Otherwise , he has had no other acute recent problems according to the . He does have decreased circulation in the left leg. PHYSICAL EXAMINATION: GENERAL: Reveals an elderly gentleman. VITAL SIGNS: Blood pressure 100/44, has increased during my exam to 124/51, heart rate is in the 70s and he is in sinus rhythm. At this time, he is afebrile. HEENT: Shows head to be normocephalic and atraumatic. There is a well-healed surgical incision of the left carotid area. I cannot hear any significant bruits at this time; however, there was increased airways noise as the patient is on the ventilator. CHEST: Decreased breath sounds on the left side. There is a right-sided decreased breath sounds due to the right-sided pleural effusion. CARDIOVASCULAR: Heart sounds are somewhat distant with normal S1, S2. I did not hear an S3 nor an S4. Could not hear any significant murmurs, heaves, thrills, bruits or rubs. ABDOMEN: Soft. The patient is distended and somewhat tympanic. Bowel sounds are decreased. I cannot hear no significant bowel sounds at all at this time. I cannot palpate femoral pulses, popliteal pulses or pedal pulses. He does have some mottling of the feet. NEUROLOGIC: The patient is on the ventilator and sedated. IMAGING: EKG shows a right bundle branch block. Chest x-ray shows a right pleural effusion. LABORATORY AND DATA: Shows a creatinine of 1.26, potassium 4.1, hemoglobin is 11.1, WBC 10.8. His blood sugar was 204-276. The EKG tracings earlier did show what appeared to be probably ventricular tachycardia or possibly atrial fibrillation. The rhythm is somewhat irregular. IMPRESSION: 1. Respiratory failure with what appears to be ventricular arrhythmias, which may be due to hypoxemia associated with turning of the patient and perhaps not to being able to ventilate the patient shortly for a short period of time. This appears to have resolved. We will continue to follow the patient very carefully. There is no previous history of coronary artery disease. However, he has multiple risk factors for coronary disease and has diffuse peripheral vascular disease which certainly puts him at risk for having coronary artery disease. At this time, he is not a candidate for cardiac catheterization. There are no acute ST segment changes otherwise. We will continue to follow him. 2. History of right pleural effusion which is still somewhat present. Whether this is due to fracture or some other etiology is unclear. I do not see that the blood samples were sent for cytology other findings, but appear to be bloody effusion. An echocardiogram has been ordered, we will need to review that. 3. Peripheral vascular disease. This will be dealt with by the surgeons and Dr. King has followed him in the past. He certainly appears to have decreased perfusion in the lower extremities. 4. History of diabetes. Again, this will be dealt with by the primary care service. Blood sugars are ranging in the 200-270 range. 5. History of tobacco abuse. He will need to absolutely stop smoking perhaps while he is here. He can get the help or assistance for some counseling in order to stop smoking. At this time, we will continue to follow the patient with you very carefully and I will review his echocardiogram and further recommendations will depend on the results of the echocardiogram and also how the patient responds now. Also, the patient appears to be septic and this may most likely is an abdominal problem. Due to the distention and decreased bowel sounds, he is scheduled for a CT scan, I believe, this afternoon. MARIA DEL CARMEN
[2017-03-29] MEDS: Propofol 1,000 MG/100 ML VIAL IV PRN (01:07)
[2017-03-29] MEDS: Amiodarone In Dextrose,Iso-Osm 200 ML IVPB SCH ×2 (01:20→13:43)
[2017-03-29] MEDS: Piperacillin/Tazobactam 3.375 GM in Sodium Chloride 0.9% 100 ML IVPB SCH ×3 (05:16→21:12)
[2017-03-29] MEDS: Lactated Ringer's 1,000 ML IV SCH ×4 (05:18→21:12)
[2017-03-29] MEDS: Insulin Regular 300 UNITS/3 ML VIAL SC PRN ×4 (05:20→16:22)
[2017-03-29 07:17] LABS: Anion Gap 13 mmol/L (10-20); BUN (Urea Nitrogen) 50 mg/dL (8.4-25.7); Calc. Creatinine Clearance 51 mL/min (70-130); Calcium 6.4 mg/dL (7.8-10.44); Carbon Dioxide 20 mmol/L (23-31); Chloride 113 mmol/L (98-107); Estimated GFR-MDRD 38
[2017-03-29 07:33] LABS: Band 62 % (5-11); Hematocrit 27.6 % (42.0-52.0); Macrocytosis SLIGHT = 6-15 cells (100X) (0-5/hpf); Mean Platelet Volume 8.7 fL (7.4-10.4); Metamyelocyte 6 % (0-0); Myelocyte 2 % (0-0); Neutrophil 19 % (42-75); Nucleated RBC 5 % (0); Polychromasia SLIGHT = 2-3 cells (100X) (0-2/hpf); Reactive Lymphocytes 1 % (0-10); White Blood Cell (WBC) Count 9.3 thou/uL (4.8-10.8)
[2017-03-29] MEDS: metroNIDAZOLE 500 MG in Premix Bag 1 BAG IVPB SCH ×2 (08:35→15:26)
[2017-03-29] MEDS: Famotidine/PF 20 mg/2ml Vial IVPB SCH ×2 (08:36→21:12)
[2017-03-29] MEDS: Docusate 100 MG CAP PO SCH ×2 (08:36→21:12)
[2017-03-29] MEDS: NPH, Human Insulin Isophane 300 UNIT/3 ML VIAL SC SCH (08:36)
[2017-03-29] MEDS ORDERED: Calcium Gluconate 4.6 MEQ in Sodium Chloride 0.9% 100 ML IVPB SCH (09:30)
--- NOTE | 2017-03-29 09:43 | PDOC.CTH ---
<Oneida Casey - Last Filed: 03/29/17 09:36> Cardiology Progress Note - Subjective The pt seen and examined. No overnight events sinc post Code. Still on Mechanical vent with Vent Sedation. Diprovan was off now for trial. - Objective Vital Signs Temp Pulse Resp BP Pulse Ox 03/29/17 07:46 98.2 F 81 28 H 98 03/29/17 07:33 81 99/42 L 03/29/17 07:00 98.2 F 03/29/17 06:00 23 H 03/29/17 04:00 24 H 03/29/17 03:00 98.4 F 03/29/17 02:34 74 25 H 96 03/29/17 02:00 25 H 03/29/17 00:00 23 H 03/28/17 23:31 64 23 H 97 03/28/17 22:00 98.6 F 64 23 H 97 Admit Weight 211 lb Weight 212 lb 8.41 oz 03/28/17 03/29/17 03/30/17 06:59 06:59 06:59 Intake Total 2354 5653.1 100 Output Total 1155 2120 255 Balance 1199 3533.1 -155 - Physical Examination General/Neuro: other: (Unknown) Lungs: other: (coases and diminished at bases) Heart: RRR Abdomen: other: (ecchimosis on Rt lower ABD; colostomy at Lt ABD, wound vac in Mid ABD) Extremities: other: (No edema; 2+ pulses at BLE) - Telemetry Telemetry Rhythm: Junctional SR - Labs Result Diagrams: 03/29/17 06:40 03/29/17 06:40 Troponin/CKMB CK-MB (CK-2) 35.0 ng/mL (0-6.6) H* 03/20/17 14:02 Troponin I 0.084 ng/mL (< 0.028) H 03/28/17 17:39 - Assessment/Plan 1. Bowel perforation - Surgeon consult 2. s/p Code Blue/Cardiac arrest/Vent arrhythmia requiring CPR - Stable; on Mechanical vent; BP stable with Levophed; 3. Paroxysmal Afib - Remain SR since 2100 on 03/28/17 with Amiodarone; Not on any anticoagulation due to Bowel perforation 4. Acute hypoxic respiratory failure - on Mechanical Vent; reintubated; managed by Dinking Machine Operator 5. Community-acquired pneumonia with pleural effusion/ hemothorax with acute blood loss anemia - stable with IV antibiotics; s/p drainage with CT which was already d/hoang 6. Hypotension - stable with Levophed; 7. Peripheral vascular disease with Hx of Lt redo CEA - Plavix is on hold due to Bowel perforation 8. DM type 2 - on Insulin SS; managed by PCP 9. COPD - on Vent; managed by Dinking Machine Operator 10. Rhabdomyolysis - CK improving 11. Hyperlipidemia. MAR Reviewed Review of Systems - Review of Systems Constitutional: reports: see HPI EENTM: reports: see HPI Respiratory: reports: see HPI Cardiac (ROS): reports: see HPI ABD/GI: reports: see HPI : reports: see HPI Musculoskeletal: reports: see HPI <Rudy Patel - Last Filed: 03/29/17 19:12> Cardiology Progress Note - Objective Vital Signs Temp Pulse Resp BP Pulse Ox 03/29/17 18:51 82 27 H 95 03/29/17 17:57 37 H 03/29/17 17:00 81 03/29/17 16:23 80 03/29/17 16:00 98.4 F 20 03/29/17 13:58 20 03/29/17 13:50 80 24 H 97 03/29/17 13:13 80 120/45 L 03/29/17 11:53 27 H 03/29/17 11:49 98.7 F 03/29/17 10:52 98.7 F 03/29/17 10:15 80 97/53 L 03/29/17 09:47 26 H 03/29/17 07:46 98.2 F 81 28 H 98 03/29/17 07:33 81 99/42 L Admit Weight 211 lb Weight 212 lb 8.41 oz 03/28/17 03/29/17 03/30/17 06:59 06:59 06:59 Intake Total 2354 5653.1 1695 Output Total 1155 2120 930 Balance 1199 3533.1 765 - Labs Result Diagrams: 03/29/17 06:40 03/29/17 06:40 Troponin/CKMB CK-MB (CK-2) 35.0 ng/mL (0-6.6) H* 03/20/17 14:02 Troponin I 0.084 ng/mL (< 0.028) H 03/28/17 17:39 - Assessment/Plan Pt. seen and evaluated by me. Pt. responds to painful stimuli. I agree with the A/P by the PHYSICIAN CODER. 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 I agree with the present management. Since he has remained in NSR, I would stop the amiodarone. If he has further arrythmias then we can adjust the meds as needed.
[2017-03-29 10:25] LABS: Oxyhemoglobin 95.1 % (94.0-97.0); Sodium 141 mmol/L (135-148)
[2017-03-29 10:29] LABS: Modified Allen's Test POSITIVE; Vent YES
[2017-03-29 10:31] LABS: Mode AC/PI=23
--- NOTE | 2017-03-29 11:10 | CON ---
DATE OF CONSULTATION: 03/28/2017 CONSULTING PHYSICIAN: Dr. Ryan Sanderson. REASON FOR CONSULTATION: Pneumoperitoneum. HISTORY OF PRESENT ILLNESS: The patient is a chronically ill 72-year-old obese white male. He was a dmitted to the hospital on 03/20/2017, secondary to respiratory difficulty following a sneezing episo de. He was sprinting and unable to take a deep breath. He presented to the emergency room 2-3 days after the sneezing episode with obvious impending respiratory failure. He was found to be hypoxic in the emergency room and he was intubated at that point. He was admitted to the Intensive Care Unit a nd cared for by Dr. Sanderson as well as the hospitalist. Dr. Anthony King saw the patient on 017, recognized him to have a large pleural effusion. He placed a right-sided chest tube with remova l of 500 mL of blood. The patient was extubated, I believe, on the , and subsequently, at some p oint the chest tube was removed. On 03/28/2017, patient coded after he was electively intubated. He did require some CPR. CT scan was obtained at that time of his abdomen and pelvis and he was found to have a large amount of free air within the abdomen. There is also concern regarding possible prox imal bowel obstruction as well as pneumatosis of the left colon and sigmoid colon. I am consulted at this time in regard to his acute abdominal findings. Patient has a long history of peripheral vascular disease requiring carotid surgery twice and stents and bypass of his lower legs. He has a history of colon resection for polyps as well. PAST MEDICAL HISTORY: 1. Obesity. 2. Diabetes mellitus. 3. Ongoing tobacco abuse. 4. Hyperlipidemia. 5. Coronary artery disease, status post myocardial infarction, and I believe he has had stent placem ents in his heart. 6. Peripheral vascular disease with stent placement. 7. Carotid artery disease with endarterectomy. 8. History of multiple sclerosis. 9. Chronic obstructive pulmonary disease with ongoing tobacco use. 10. Hypertension. 11. Depression. PAST SURGICAL HISTORY: 1. History of Pia's gangrene, requiring surgical treatment in 2003. 2. Left hip replacement in 2013 with repeat operation in 2014. 3. Left carotid endarterectomy in 2010 with a redo endarterectomy in 2016. 4. Femoropopliteal artery bypass on the left in 2014. 5. Colon resection. 6. Tonsillectomy. 7. Spine stimulator placement later removed. 8. Esophageal dilatation. ALLERGIES: No known drug allergies. CURRENT MEDICATIONS: Apparently include aspirin, vitamin D, Cymbalta, glimepiride, metformin, Actos, Plavix, Flomax, and Lipitor. PRIMARY CARE PHYSICIAN: Dr. Maxwell. PERSONAL AND SOCIAL HISTORY: He is , is present at bedside. He is retired. He has smok ed for a long time and continues to smoke. His tells me he formerly smoked up to 4 packs of cig arettes a day and he currently smokes between 1 and 2 packs of cigarettes a day. REVIEW OF SYSTEMS: Otherwise, unremarkable. FAMILY HISTORY: Noncontributory. PHYSICAL EXAMINATION: VITAL SIGNS: He is afebrile. Pulse is regular and in the 70s (on an amiodarone drip). He is curren tly on Levophed to maintain blood pressure, but his Levophed is 10 mcg per minute, which is down from earlier today. His systolic blood pressure is between 100 and 110. GENERAL: Well-developed, well-nourished, obese white male resting in bed, sedated on the ventilator. HEAD, EYES, EARS, NOSE, AND THROAT: Unremarkable. NECK: Supple. LUNGS: Clear to auscultation anteriorly. CARDIAC: Regular rate and rhythm. ABDOMEN: Obese and distended. It is difficult to discern whether there is any tenderness or pain. EXTREMITIES: Unremarkable. LABORATORY DATA: CBC from this morning on 03/28/2017 revealed a white blood cell count of 10.8, hemo globin of 11.1, platelet count of 260. It is noted that his white blood cell count yesterday morning on 03/27/2017 was 25.8 with 17% bandemia. His bandemia. today is 48%. His chemistry panel reveals hyperglycemia with blood sugars ranging between 200 and 300, has mild renal insufficiency with a cre atinine of 1.26. Electrolytes show minimal irregularity. Albumin is low at 2.3 and calcium is low a t 7.4. ASSESSMENT: Patient with free air within the abdomen. He is noted to have proximal small bowel dist ention and has no definite pneumatosis in the left colon and sigmoid colon. It is uncertain which is the source of perforation. I had a lengthy discussion with his . I explained that he is a poor surgical candidate for a variety of reasons, but that without surgery that his current problems will certainly be fatal. I also explained that even with surgery that he is a high-risk patient, and he certainly has a good chance of not surviving this hospitalization regardless of what we do. She is c ertain she wants to proceed with surgery. I explained that operative procedure will depend upon intr aoperative findings. She understands he will be returning to the intensive care unit on a ventilator and will still require pressors. Patient already has a central line in place. This has all been di scussed with Dr. Sanderson as well.
--- NOTE | 2017-03-29 12:01 | OP ---
DATE OF PROCEDURE: 03/28/2017 PREOPERATIVE DIAGNOSES: Pneumoperitoneum with intestinal perforation. POSTOPERATIVE DIAGNOSES: Gangrenous sigmoid and left colon with extensive feculent peritonitis, smal l-bowel obstruction leading to proximal small bowel dilatation, devitalized tissue throughout, leadin g to several serosal tears and 2 significant enterotomies, extensive intra-abdominal adhesions, sever e peripheral arterial disease with inability to place an arterial line. OPERATION PERFORMED: Attempted femoral arterial line placement with ultrasound guidance (unsuccessfu l), exploratory laparotomy with evacuation of between 500 and 1000 mL of feculent liquid contents, ex tensive lysis of adhesions in order to free the entire small bowel and the left and sigmoid colon, re pair of multiple serosal defects in the small bowel, repair of enterotomy x2, Babatunde's procedure wi th resection of the entire sigmoid and left colon with creation of a transverse colostomy. SURGEON: Dr. Solitario Mcallister ANESTHESIA: General endotracheal. INDICATIONS: The patient is a 72-year-old very ill white male. He has been hospitalized for over a week with respiratory and thoracic problems. He has had a chest tube placed and removed. He has bee n intubated, extubated and reintubated earlier today. He coded earlier today and subsequently a CT s can was obtained revealing free air within the abdomen. There was noted to be pneumatosis within the left colon and proximal small bowel dilatation. He is taken to the operating room urgently for expl oration and repair as indicated. Central line was placed earlier today by his stocking inspector. He is currently on a Levophed drip. OPERATIVE PROCEDURE IN DETAIL: Informed consent was obtained. The patient was taken to the operatin g room where general endotracheal anesthesia was maintained. Attention was turned first to his groin . Anesthesia was unable to place an arterial line at the level of the wrist. I used ultrasound to e valuate his right groin. Although I could clearly see a patent common femoral vein that was compress ible, the artery had no definite evidence of flow within it. Using ultrasound guidance, I attempted to pass the needle from a Cook catheter into the artery. On numerous occasions I punctured the arter y, but never had any blood return. I suspect he has an occluded right femoral artery. He has severe peripheral vascular disease diffusely and I suspect this is a manifestation. I examined his left gr oin, but he has already had a left femoral popliteal artery bypass and I could not discern anatomy wiley ch that I could place a femoral arterial line. I therefore abandoned the idea of an arterial cathete r placement. The abdomen was prepped with ChloraPrep and draped in sterile fashion. Midline incision was opened, dissection was carried through skin and subcutaneous tissue into the abdominal cavity. Immediately u zuhair entering, there was a large volume of air that escaped as well as foul smell consistent with fecu lent material. The incision was widely opened. There were some adhesions to the anterior abdominal wall and these were taken down using a combination of blunt and sharp dissection. I then freed the a nterior abdominal wall. I aspirated several hundred mL of thin feculent foul smelling material. I i mmediately noted obvious gangrenous tissue within the sigmoid colon. I initially could not see the s ource of the leak, this proved to be a large rent in the necrotic, almost liquefied wall of the sigmo id colon. I then began a lengthy lysis of adhesions. There were several loops of proximal small bowel that wer e markedly dilated at 4-5 cm. I also needed to free the small bowel from the colon in order to be ab le to resect. I ended up lysing all adhesions in order to be able to mobilize the small bowel throug hout up until the last several centimeters at which point it was anastomosed to the transverse colon in the right upper quadrant. The patient had had a prior right hemicolectomy. During the course of this mobilization the bowel was noted to be of impaired quality. It tore easily and numerous serosal defects were created, all of which were repaired with interrupted sutures of 3- 0 silk. I additionally created 2 significant enterotomies, one of which was at the ligament of Treit z in the area of bowel that was quite dilated. The other was distally in the proximal ileum. These were also repaired using single layer sutures of interrupted 3-0 silk. Attention was then turned to the colon. With difficulty, I dissected down, identified the upper rect um. The mesenteric defect was created. I stapled off the upper rectum with a single fire of the NIEVES -75 stapler. I then used the LigaSure device to take down the mesentery of the colon in an ascending fashion. This was difficult as there was extensive fibrosis and induration at this area. On top of this, there was clearly reaction from the feculent material within the abdomen which appears to have been here for a while. I could not definitely visualize the left ureter, but dissection was carried down next to the bowel to minimize potential for injury to this. I turned my attention to the splen ic flexure. The splenic flexure was fully mobilized, taking down the omentum off of the transverse c olon. The left colon was fully mobilized. I continued dividing the mesentery until I dissected past the splenic flexure and identified the distal transverse colon. At this level, I again divided the colon with another fire of the NIEVES stapler. The specimen was passed off the field. The abdominal cavity was then extensively irrigated using 5 liters of warm saline. All irrigant was aspirated. All solid feculent material had already been removed. There was no evidence of any ongoi ng bleeding in any location. All irrigant was aspirated. The staple line of the rectum was tagged w ith 2 interrupted sutures of 2-0 Prolene. A #19 round fluted drain was brought out the right abdomen and passed down within the pelvis and over into the left abdomen. This was secured externally with 3-0 nylon suture. Colostomy opening was created in the left upper abdomen through the rectus sheath in standard fashion. The transverse colon was advanced through this uneventfully. The colon was fix ed to the anterior fascia with 4 interrupted sutures of 3-0 Vicryl. The fascia was then closed with running suture of loop #1 PDS. The colostomy was matured in the usual fashion with 4 interrupted elo rsion sutures followed by full thickness interrupted sutures utilizing 3-0 Vicryl. The colostomy brittney liance was fashioned and placed. The midline wound was packed with gauze and dry gauze dressing was placed externally. There were no complications. The patient remained in relatively stable on the me pressor support utilizing Levophed. He was returned to the Intensive Care Unit in critical, but s table condition.
[2017-03-29] MEDS: Vancomycin HCl 1.5 GM in Sodium Chloride 0.9% 250 ML 300 ML IVPB SCH (13:19)
--- NOTE | 2017-03-29 15:17 | PRG ---
DATE OF SERVICE: 03/29/2017 Mr. Bennett is postoperative day #1 from laparotomy with colon resection and drainage of feculent perit onitis. He remains intubated and on intravenous pressors using a Levophed at 15 mcg per minute. He had been sedated on propofol, but at the time of my visit he had a propofol withdrawn for almost an h our without any significant intentional response noted. PHYSICAL EXAMINATION: VITAL SIGNS: He was febrile with temperature of 98.7. His pulse was 80 and blood pressure was 126/3 0. His urine output was good with at least 30 mL of clear urine output per hour. His drain is putti ng out relatively clear appearing serosanguineous fluid. LUNGS: Clear to auscultation. CARDIAC: Regular rate and rhythm. ABDOMEN: Distended without bowel sounds. He has a right-sided drain in place. He has a VAC dressin g in his midline wound and has an ostomy in the left abdomen. There is stool output from the ostomy and I cannot visualize the ostomy to ensure appropriate viability. LABORATORY STUDIES: His hemoglobin this morning is 8.7, which is stable from 8.4 postoperatively las t night. He still has a severe bandemia with 62% and white blood cell count of 9.3. Platelet count is within normal limits at 228. His chemistry panel reveals persistent electrolyte abnormalities. H is creatinine is stable at 1.7 and BUN is slightly up to 50. Sodium was normal limits. Potassium is down from 5 last night to 4.4 currently. He also has low calcium level of 6.4. ASSESSMENT AND PLAN: This patient is relatively stable considering his underlying medical condition, his numerous medical comorbidities, and the severity of his intraoperative findings: I fully expect him to be septic related to his colon perforation and extensive intraabdominal feculent peritonitis. He remains on intravenous antibiotics using Flagyl, Zosyn, and vancomycin. He is requiring pressor s, but not a very high rate. All things considered, he appears to be relatively stable. I had a con versation with his who tells me that at the point that we do not believe he can survive that he does not want to leave him on life support at that time and would want to withdraw care. I told her at this point that there is certainly reason for some optimism that he can recuperate then I told her I would be forthright with her at the point that I did not believe that he could survive. For now, we will continue the same support although he will likely need intravenous nutrition in the next few days.
--- NOTE | 2017-03-29 18:05 | PRG ---
DATE OF SERVICE: 03/29/2017 SERVICE: Pulmonary Medicine. INTERVAL HISTORY: Yesterday, in the evening, we discovered that the patient had a perforated his bow el. This happened on the CT scan and we brought him down for Unfortunately, this morning, he really has not woken up from a neurologic standpoint. Ever since the code event, he has remained encephalo pathic. I am hopeful that is because of metabolic derangements and does not represent an anoxic brai n injury. His duration of chest compressions was quite low. PHYSICAL EXAMINATION: VITAL SIGNS: Afebrile, pulse 81, blood pressure 127/43, respirations 23, saturation 94% on room air. GENERAL: The patient is intubated. He is encephalopathic. HEENT: Normocephalic, atraumatic. Sclerae are white, conjunctivae pink. Oral and nasal mucosa is m oist without lesions. LUNGS: Decent air entry. There is not a prolonged expiratory phase. Rhonchi are present but minima l. No wheezing or crackles are appreciated. HEART: Normal rate, regular. ABDOMEN: Soft. No longer distended. Bowel sounds are completely absent. There is no rebound or gu arding presently. MUSCULOSKELETAL: No cyanosis or clubbing. There is diffuse 2+ edema. NEUROLOGIC: He is coughing and overbreathing the ventilator. His pupils are working. He has a coug christian gag. Outside of this, he is not withdrawing from any noxious stimuli in the bilateral upper or lower extremities. He is not spontaneously moving his lower extremities. LABORATORY DATA: WBC 9.3, hemoglobin 8.4. Band count is 62% and continues to trend upward. INR 1.3 . PH 7.44, pCO2 of 26, pO2 77 corresponding to saturation of 95% on 37% FIO2 with a PEEP of 5. Crea tinine 1.76 and roughly stable. BUN 50, anion gap 13, bicarbonate 20, which remains stable. Anion g ap has significantly improved. Potassium 4.4, sodium 142. Calcium 6.4. Urinalysis is unremarkable. C. diff antigen and toxin is unremarkable. Blood cultures x3 are negative. Urine cultures negativ e. ASSESSMENT: 1. Acute hypoxic respiratory failure. 2. Community-acquired pneumonia. 3. Acute blood loss anemia secondary to hemothorax, resolved. 4. Septic shock. 5. Community-acquired pneumonia. 6. Gross peritonitis secondary to perforated viscus. 7. Metabolic encephalopathy. 8. Acute kidney injury. PLAN: We will continue supportive care moving forward. At this point, my hope is that he starts to wake up as he clears his abnormal metabolites. 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 I have prepped the patient's for that potential outcome however. Flagyl has been d iscontinued as there is no evidence of Clostridium difficile. We will continue the Zosyn and the van comycin for the time being. Multiple ventilator adjustments have been made in order to back off on h er support slightly. Repeat laboratories will be done tomorrow morning. Critical care time: 30 minutes.
--- NOTE | 2017-03-29 18:56 | PDOC.PN ---
- Subjective Encounter Start Date: 03/29/17 Encounter Start Time: 15:30 Patient seen and examined. on [facility] Vent/pressors/Amiodarone. No overnight events - Objective MAR Reviewed: Yes Vital Signs & Weight: Vital Signs (12 hours) Temp Pulse Resp BP Pulse Ox 03/29/17 18:51 82 27 H 95 03/29/17 17:57 37 H 03/29/17 17:00 81 03/29/17 16:23 80 03/29/17 16:00 98.4 F 20 03/29/17 13:58 20 03/29/17 13:50 80 24 H 97 03/29/17 13:13 80 120/45 L 03/29/17 11:53 27 H 03/29/17 11:49 98.7 F 03/29/17 10:52 98.7 F 03/29/17 10:15 80 97/53 L 03/29/17 09:47 26 H 03/29/17 07:46 98.2 F 81 28 H 98 03/29/17 07:33 81 99/42 L 03/29/17 07:00 98.2 F Weight Admit Weight 211 lb Weight 212 lb 8.41 oz Most Recent Monitor Data Heart Rate from ECG 83 NIBP 133/49 NIBP BP-Mean 86 Respiration from ECG 35 SpO2 94 I&O: 03/28/17 03/29/17 03/30/17 06:59 06:59 06:59 Intake Total 2354 5653.1 1695 Output Total 1155 2120 930 Balance 1199 3533.1 765 Result Diagrams: 03/30/17 04:45 03/30/17 04:45 Additional Labs: Accuchecks 03/29/17 03/29/17 03/29/17 16:00 11:35 07:22 POC Glucose 214 H 248 H 255 H 03/29/17 03/28/17 05:21 23:27 POC Glucose 277 H 273 H EKG Reviewed by me: Yes (Tele SR) Phys Exam - Physical Examination Constitutional: NAD Respiratory: no wheezing, no rhonchi Cardiovascular: RRR, no rub Gastrointestinal: soft Wound vac + Dx/Plan - Plan IMPRESSION: 1. Bowel perforation/Peritonitis (03/28) s/p surgery 2. s/p Code Blue/Cardiac arrest/Vent arrhythmia requiring CPR (03/28)- on Pressors/Amiodarone drip 3. Acute hypoxic respiratory failure (03/20) s/p Mech Vent. reintubated 4. Toxic metabolic encephalopathy. - multifactorial 5. Community-acquired pneumonia with pleural effusion/ hemothorax with acute blood loss anemia. s/p drainage with CT (Chest tube dced) - on Zosyn since admission (Vanc/Flagyl added on 03/28). Completed Azithromycin. 6. Metabolic acidosis/lactic acidosis 7. Severe sepsis with acute organ dysfunction 8. Rhabdomyolysis. CK improving 9. Abnormal troponins, probably secondary to demand ischemia. 10. Peripheral vascular disease/Carotid artery disease/Coronary artery disease. on ASA. Plavix on hold 11. Diabetes mellitus type 2.- on sliding scale 12. h/o Hypertension. 13. Anxiety/depression. 14. Peripheral neuropathy/Chronic pain syndrome. 15. Hyperlipidemia. 16. Gastroesophageal reflux disease. 17. Benign prostatic hypertrophy. 18. Chronic obstructive pulmonary disease. - on nebs 19. Hyponatremia/Acute kidney injury on chronic kidney disease stage 2/ Hyperkalemia - resolved PLAN: * s/p surgery * On Zosyn/Vanc/Flagyl/Pressors/Amiodarone * Echo reviewed * Gen surg/Cardiology/Critical care following * Cont current supportive care * Plavix on hold * AM labs * Cont current meds as below Review of Systems - Review of Systems Other: Cannot obtain due to sedation - Medications/Allergies Allergies/Adverse Reactions: Allergies Allergy/AdvReac Type Severity Reaction Status Date / Time No Known Allergies Allergy Verified 08/08/16 08:56 Medications: Current Medications Acetaminophen (Tylenol) 650 mg SD Q6H PRN PRN Reason: Fever > 101 or Mild Pain Last Admin: 03/24/17 00:13 Dose: 650 mg Acetaminophen (Tylenol Elixir) 650 mg PO Q6H PRN PRN Reason: Fever > 101 or Mild Pain Last Admin: 03/22/17 20:52 Dose: 650 mg Albuterol/Ipratropium (Duoneb) 3 ml NEB [id number] [facility] Last Admin: 03/29/17 18:51 Dose: 3 ml Albuterol/Ipratropium (Duoneb) 3 ml NEB [id number] PRN PRN Reason: SOB &/or Wheezing Aspirin (Aspirin Chewable) 81 mg PER TUBE DAILY [facility] Last Admin: 03/29/17 08:36 Dose: 81 mg Bisacodyl (Dulcolax) 10 mg SD DAILYPRN PRN PRN Reason: Constipation Last Admin: 03/25/17 08:44 Dose: 10 mg Docusate Sodium (Colace) 100 mg PO BID [facility] Last Admin: 03/29/17 08:36 Dose: 100 mg Famotidine (Pepcid) 20 mg IVPB BID [facility] Last Admin: 03/29/17 08:36 Dose: 20 mg Hydralazine HCl (Apresoline) 10 mg SLOW IVP Q6H PRN PRN Reason: FOR SBP > 180 Last Admin: 03/24/17 04:27 Dose: 10 mg Piperacillin Sod/Tazobactam (Sod 3.375 gm/ Sodium Chloride) 100 mls @ 200 mls/ hr IVPB Q8HR [facility] Last Admin: 03/29/17 13:23 Dose: 100 mls Potassium Chloride 40 meq/ (Sodium Chloride) 270 mls @ 135 mls/hr IVPB ASDIR PRN PRN Reason: FOR SERUM K+ 2.5 - 3.5 Last Admin: 03/25/17 10:55 Dose: 270 mls Potassium Chloride 40 meq/ (Device) 100 mls @ 50 mls/hr IVPB ASDIR PRN PRN Reason: FOR SERUM K+ 2.5 - 3.5 Last Admin: 03/27/17 14:22 Dose: 100 mls Magnesium Sulfate 1 gm/ Sodium (Chloride) 102 mls @ 102 mls/hr IV PRN PRN PRN Reason: MAG LEVEL 1.4 - 2.0 Magnesium Sulfate 2 gm/ Device 100 mls @ 100 mls/hr IVPB ASDIR PRN PRN Reason: MAGNESIUM < 1.4 Last Admin: 03/27/17 10:48 Dose: 100 mls Potassium Phosphate 9 mmol/ (Sodium Chloride) 103 mls @ 25.75 mls/hr IVPB ASDIR PRN PRN Reason: Phosphate 1.0-1.8 Potassium Phosphate 12 mmol/ (Sodium Chloride) 254 mls @ 63.5 mls/hr IV ASDIR PRN PRN Reason: Serum phosphate 0.5-0.9 Potassium Phosphate 15 mmol/ (Sodium Chloride) 255 mls @ 63.75 mls/hr IV ASDIR PRN PRN Reason: Serum Phos < 0.5 Norepinephrine Bitartrate (Levophed) 250 mls @ 0 mls/hr IVPB INF PRN; Protocol ; Titrate PRN Reason: Blood Pressure Last Admin: 03/29/17 01:23 Dose: 250 mls Vancomycin HCl 1.5 gm/ Sodium (Chloride) 300 mls @ 200 mls/hr IVPB 1300 MIKE Lactated Ringer's (Lactated Ringer's) 1,000 mls @ 100 mls/hr IV .Q10H [facility] Last Admin: 03/29/17 18:03 Dose: Not Given Insulin Human NPH (Humulin N) 15 unit SC DAILY [facility] Last Admin: 03/29/17 08:36 Dose: 15 unit Insulin Human Regular (Humulin R) 0 units SC .MODERATE SLIDING SC PRN PRN Reason: Moderate Correctional Scale Last Admin: 03/29/17 16:22 Dose: 4 unit Lactulose (Lactulose) 20 gm PO DAILYPRN PRN PRN Reason: Constipation Magnesium Oxide (Magnesium Oxide) 400 mg PO BIDPRN PRN PRN Reason: FOR SERUM MAG 1.4 - 2.0 Magnesium Oxide (Magnesium Oxide) 800 mg PO PRN PRN PRN Reason: FOR SERUM MAG < 1.4 Mineral Oil/White Petrolatum (Lacri-Lube Ointment) 0 gm EA EYE PRN PRN PRN Reason: Dry Eyes Miscellaneous Medication (Pharmacy To Dose) 1 each IVPB PRN PRN PRN Reason: Pharmacy to dose Miscellaneous Medication (Phos-Nak) 1 pkt PO TIDPRN PRN PRN Reason: FOR PHOS LEVEL 1.0 - 1.8 Miscellaneous Medication (Phos-Nak) 2 pkt PO TIDPRN PRN PRN Reason: FOR PHOS LEVEL 0.5 - 1.0 Miscellaneous Medication (Pharmacy To Dose) 1 each IVPB PRN PRN PRN Reason: Pharmacy to dose Discontinue Previous Narcotic Pain Medications And Benzodiazepines 1 each FS .ONE MIKE Stop: 04/27/17 10:01 Ondansetron HCl (Zofran) 4 mg IVP Q6H PRN PRN Reason: Nausea/Vomiting Last Admin: 03/27/17 16:05 Dose: 4 mg Potassium Chloride (K-Dur) 40 meq PO ASDIR PRN PRN Reason: FOR SERUM K+ 2.5 - 3.5 Potassium Chloride (Klor-Con) 40 meq PER TUBE ASDIR PRN PRN Reason: FOR SERUM K+ 2.5-3.5 Sodium Chloride (Flush - Normal Saline) 10 ml IVF Q12HR MI[facility] Last Admin: 03/29/17 09:46 Dose: Not Given Sodium Chloride (Flush - Normal Saline) 10 ml IVF PRN PRN PRN Reason: Saline Flush
[2017-03-29] MEDS ORDERED: Fentanyl 20 MCG/ML 250 ML IVPB SCH (19:04)
[2017-03-30] MEDS: Piperacillin/Tazobactam 3.375 GM in Sodium Chloride 0.9% 100 ML IVPB SCH ×3 (05:38→22:32)
[2017-03-30 05:39] LABS: Band 31 % (5-11); Hematocrit 22.7 % (42.0-52.0); Mean Platelet Volume 8.4 fL (7.4-10.4); Metamyelocyte 3 % (0-0); Myelocyte 1 % (0-0); Neutrophil 43 % (42-75); Nucleated RBC 4 % (0); Red Blood Cell (RBC) Count 2.15 mill/uL (4.70-6.10); White Blood Cell (WBC) Count 8.5 thou/uL (4.8-10.8)
[2017-03-30] MEDS: Lactated Ringer's 1,000 ML IV SCH (05:44)
[2017-03-30 05:55] LABS: Anion Gap 10 mmol/L (10-20); BUN (Urea Nitrogen) 43 mg/dL (8.4-25.7); Calc. Creatinine Clearance 57 mL/min (70-130); Calcium 6.5 mg/dL (7.8-10.44); Carbon Dioxide 21 mmol/L (23-31); Chloride 118 mmol/L (98-107); Estimated GFR-MDRD 43; Magnesium 2.1 mg/dL (1.6-2.6); Phosphorus 2.9 mg/dL (2.3-4.7)
[2017-03-30] MEDS: Acetaminophen 650 MG/20.3 ML UDCUP PO PRN (07:12)
[2017-03-30] MEDS: Insulin Regular 300 UNITS/3 ML VIAL SC PRN ×4 (07:57→20:42)
[2017-03-30] MEDS ORDERED: Acetaminophen 1,000 MG in Premix Bag 1 BAG IVPB PRN (08:50)
--- NOTE | 2017-03-30 08:50 | PRG ---
DATE OF SERVICE: 03/30/2017 The patient is postoperative day #2 from exploratory laparotomy with extended left hemicolectomy and colostomy formation. He had extensive fecal peritonitis. He also had a small-bowel obstruction. He remains intubated. His Propofol was discontinued yesterday. He has been on a low dose of fentany l overnight. He still at this point shows no purposeful interaction. He does respond to pain, howev er. Since yesterday, his pressor medications (Levophed) have been discontinued. His blood pressure is stable and is currently 120/48. He has developed a fever this morning and has a temperature of 10 2.1 this morning. PHYSICAL EXAMINATION: GEERAL: On examination, he is intubated. As mentioned he responds to painful stimulus with a grimac e. He is breathing over the ventilator, but this appears to be aided with a low dose fentanyl drip. VITAL SIGNS: Pulse is 87, blood pressure 120/48. His urine output for the last 24 hours was 1400 mL . His abdominal drain put out 440 mL and his NG tube put out 600 mL. The abdominal drain is drainin g progressively lightening serosanguineous fluid with no evidence of enteric contents. LUNGS: Clear to auscultation anteriorly. CARDIAC: Regular rate and rhythm. ABDOMEN: Obese, but relatively soft. VAC is present in the midline wound. Drain is in the right ab domen and ostomy is in the left. There is some stool output from the ostomy. It makes it to where I cannot actually see the ostomy it to check its viability. There were certainly no bowel sounds. LABORATORY STUDIES: His labs from this morning reveal that his chloride has continued to elevate at 118, his CO2 is a little bit low at 21, in spite of being on lactated Ringer's. His creatinine is 1. 58, which is down a little bit from yesterday. His calcium remains low at 6.5 in spite of supplement ation. Phosphorus and magnesium are normal. His hemoglobin this morning is 7.3. Given his extensiv e vascular history I am going to transfuse a unit of blood. His white blood cell count is 8.5 with a bandemia of 31%. ASSESSMENT AND PLAN: The patient is seeming to improve following his surgery. He has developed a fe kassidy. He is already on broad antibiotic coverage. He will be given intravenous Tylenol for the fever . I will initiate TPN today as he has had very little nutritional intake since he has been hospitali [facility] for over a week. We will check a chest x-ray this morning also. Otherwise, it is a matter jasmyne nuing to support him to see if he can get past his sepsis.
[2017-03-30] MEDS: Famotidine/PF 20 mg/2ml Vial IVPB SCH ×2 (08:59→20:38)
[2017-03-30] MEDS: NPH, Human Insulin Isophane 300 UNIT/3 ML VIAL SC SCH (09:01)
[2017-03-30] MEDS: Docusate 100 MG CAP PO SCH (09:01)
--- NOTE | 2017-03-30 09:24 | RAD ---
PORTABLE CHEST: COMPARISON: 03/28/17 study. HISTORY: Respiratory distress. FINDINGS: Endotracheal and NG tubes are in satisfactory position. Right-sided pleural and parenchymal lung mina nges are stable. No new process identified. IMPRESSION: Stable exam. POS: TRANG
[2017-03-30] MEDS ORDERED: Aspirin 300 MG Suppository PR SCH (10:15)
--- NOTE | 2017-03-30 12:15 | PDOC.CTH ---
<Oneida Casey - Last Filed: 03/30/17 12:10> Cardiology Progress Note - Subjective The pt seen and examined. No overnight events. He remains to be intubated. He responses to pain stimulation only wtih small dose of Fentanyl. According to the pt's , the pt will be extubated on Sunday. - Objective Vital Signs Temp Pulse Pulse Resp BP BP Pulse Ox 03/30/17 11:00 98.9 F 03/30/17 09:59 19 03/30/17 09:56 99.4 F 75 20 108/44 L 95 03/30/17 09:39 100.5 F H 76 19 98/45 L 96 03/30/17 08:00 101.3 F H 03/30/17 07:21 102.1 F H 90 33 H 94 L 03/30/17 07:00 102.1 F H 03/30/17 06:56 88 125/49 L 03/30/17 06:54 88 31 H 92 L 03/30/17 06:00 30 H 03/30/17 04:00 27 H 03/30/17 03:00 98.2 F 03/30/17 02:23 89 32 H 95 03/30/17 02:00 28 H Admit Weight 211 lb Weight 214 lb 11.684 oz 03/29/17 03/30/17 03/31/17 06:59 06:59 06:59 Intake Total 5653.1 3116 60 Output Total 2120 2470 320 Balance 3533.1 646 -260 - Physical Examination General/Neuro: other: (unknown) Neck: no JVD present Lungs: other: (diminished at bases) Heart: RRR Abdomen: soft Extremities: other: (No edemas) - Telemetry Telemetry Rhythm: SR - Labs Result Diagrams: 03/30/17 04:45 03/30/17 04:45 Troponin/CKMB CK-MB (CK-2) 35.0 ng/mL (0-6.6) H* 03/20/17 14:02 Troponin I 0.084 ng/mL (< 0.028) H 03/28/17 17:39 - Assessment/Plan 1. Bowel perforation - S/p Exp. Lap with extended Lt hemicolectomy and colostomy ; 1u PRBC tx today for decreased Hgb today; managed by Surgeon 2. s/p Code Blue/Cardiac arrest/Vent arrhythmia requiring CPR - Stable; on Mechanical vent; BP stable with Levophed; 3. Paroxysmal Afib - Remain in SR since 2100 on 03/28/17; Amiodarone was stopped on 03/29/17; on ASA 300mg [place] from today 4. Acute hypoxic respiratory failure - on Mechanical Vent; remain to be intubated; managed by Television Production Clerk 5. Community-acquired pneumonia with pleural effusion/ hemothorax with acute blood loss anemia - stable with IV antibiotics; s/p drainage with CT which was already d/hoang 6. Hypotension - stable with Levophed; 7. Peripheral vascular disease with Hx of Lt redo CEA - Plavix is on hold due to Bowel perforation 8. DM type 2 - on Insulin SS; managed by PCP 9. COPD - on Vent; managed by Television Production Clerk 10. Rhabdomyolysis - CK improving 11. Hyperlipidemia. MAR Reviewed *From cardiac standpoint, the pt is stable. We would like to sign off from his care. Please contact us for further questions. Review of Systems - Review of Systems Constitutional: reports: see HPI EENTM: reports: see HPI Respiratory: reports: see HPI Cardiac (ROS): reports: see HPI ABD/GI: reports: see HPI <Rudy Patel - Last Filed: 03/30/17 14:49> Cardiology Progress Note - Objective Vital Signs Temp Pulse Pulse Resp BP BP Pulse Ox 03/30/17 13:54 18 03/30/17 12:30 69 117/48 L 03/30/17 12:29 68 16 96 03/30/17 12:00 98.8 F 18 03/30/17 11:00 98.9 F 03/30/17 09:59 19 03/30/17 09:56 99.4 F 75 20 108/44 L 95 03/30/17 09:39 100.5 F H 76 19 98/45 L 96 03/30/17 08:00 101.3 F H 03/30/17 07:21 102.1 F H 90 33 H 94 L 03/30/17 07:00 102.1 F H 03/30/17 06:56 88 125/49 L 03/30/17 06:54 88 31 H 92 L 03/30/17 06:00 30 H 03/30/17 04:00 27 H 03/30/17 03:00 98.2 F Admit Weight 211 lb Weight 214 lb 11.684 oz 03/29/17 03/30/17 03/31/17 06:59 06:59 06:59 Intake Total 5653.1 3116 410 Output Total 2120 2470 485 Balance 3533.1 646 -75 - Labs Result Diagrams: 03/30/17 04:45 03/30/17 04:45 Troponin/CKMB CK-MB (CK-2) 35.0 ng/mL (0-6.6) H* 03/20/17 14:02 Troponin I 0.084 ng/mL (< 0.028) H 03/28/17 17:39 - Assessment/Plan Pt. seen and eval. by me. I agree with the A/P by the [employer]. Despite multiple issues, the cardiac status remains stable. No further arrythmias.I will sign off. If any cardiac issues please page [facility] again.
[2017-03-30 12:35] LABS: Vancomycin, Trough 11.2 ug/mL
[2017-03-30] MEDS ORDERED: Vancomycin HCl 500 MG in Sodium Chloride 0.9% 100 ML IVPB SCH (13:00)
[2017-03-30] MEDS ORDERED: Vancomycin HCl 1.5 GM in Sodium Chloride 0.9% 250 ML 300 ML IVPB SCH (13:00)
[2017-03-30] MEDS: POTASSIUM ACETATE IV SCH ×10 (13:32)
[2017-03-30] MEDS: POTASSIUM PHOSPHATE IV SCH ×10 (13:32)
[2017-03-30] MEDS: SODIUM ACETATE IV SCH ×10 (13:32)
[2017-03-30] MEDS: [UNRECOGNIZED DRUG - OTHER] IV SCH ×10 (13:32)
--- NOTE | 2017-03-30 19:11 | OP ---
DATE OF SERVICE:: 03/28/2017 SERVICE: Pulmonary Medicine. PROCEDURE: Left side 8.5-[place] triple-lumen central venous catheter placement under ultrasound guid michelle. CONSENT: This was implied secondary to emergency. Staff PHYSICIAN: Ryan Sanderson M.D. MEDICATIONS USED: None. PREOPERATIVE DIAGNOSIS: Septic shock. POSTPROCEDURE DIAGNOSIS: Septic shock. DESCRIPTION OF PROCEDURE: Vital sign monitoring was accomplished by noninvasive hemodynamic monitori ng, pulse oximetry, telemetry. A timeout was performed and the patient was positively identified by name and date of . The procedure site was marked. The patient was placed in supine position an d the left neck was prepped and draped in sterile fashion. The course of the internal jugular vein w as mapped with ultrasound and overlying skin was anesthetized with 1% lidocaine without epinephrine. Decannulation needle was placed in the internal jugular vein under direct observation. Direct ultra sound observation with return of dark red, nonpulsatile blood on the first attempt. J-shaped guidewi re was threaded through the cannulation needle without difficulty. A small incision was made and the dilator and 8.5 [place] triple-lumen central venous catheter were serially threaded over the guidewir e. The catheter was sutured to the skin at 18 cm with 3-0 silk sutures x4. All 3 ports withdrew and flushed without difficulty. A sterile dressing was applied and the procedure was terminated. Post- procedure chest x-ray demonstrated adequate location for the tip of the catheter without a pneumothor ax. ESTIMATED BLOOD LOSS: 3 mL COMPLICATIONS: None.
--- NOTE | 2017-03-30 19:36 | PDOC.PN ---
- Subjective Encounter Start Date: 03/30/17 Encounter Start Time: 13:00 -: non-verbal Patient seen and examined. Intubated - on [facility] Vent. No overnight events - Objective MAR Reviewed: Yes Vital Signs & Weight: Vital Signs (12 hours) Temp Pulse Pulse Resp BP BP Pulse Ox 03/30/17 19:23 75 124/47 L 03/30/17 17:40 99.0 F 14 03/30/17 16:22 71 138/52 L 03/30/17 16:21 71 18 97 03/30/17 16:00 99.1 F 20 03/30/17 13:54 18 03/30/17 12:30 69 117/48 L 03/30/17 12:29 68 16 96 03/30/17 12:00 98.8 F 18 03/30/17 11:00 98.9 F 03/30/17 09:59 19 03/30/17 09:56 99.4 F 75 20 108/44 L 95 03/30/17 09:39 100.5 F H 76 19 98/45 L 96 03/30/17 08:00 101.3 F H Weight Admit Weight 211 lb Weight 214 lb 11.684 oz Most Recent Monitor Data Heart Rate from ECG 68 NIBP 120/45 NIBP BP-Mean 83 Respiration from ECG 15 SpO2 95 I&O: 03/29/17 03/30/17 03/31/17 06:59 06:59 06:59 Intake Total 5653.1 3116 2258 Output Total 2120 2470 1735 Balance 3533.1 646 523 Result Diagrams: 03/30/17 04:45 03/30/17 04:45 Additional Labs: Accuchecks 03/30/17 03/30/17 03/30/17 16:17 11:53 07:57 POC Glucose 244 H 189 H 161 H 03/30/17 03/30/17 03/29/17 04:53 00:27 21:11 POC Glucose 157 H 175 H 171 H EKG Reviewed by me: Yes (Tele SR) Phys Exam - Physical Examination Pt intubated - on Fentanyl for sedation Respiratory: no wheezing Bibasilar rales Cardiovascular: RRR, no rub Gastrointestinal: soft Wound vac Musculoskeletal: edema present Neuro/Psych - Cannot assess due to sedation Dx/Plan - Plan DVT proph w/SCDs IMPRESSION: 1. Bowel perforation/Peritonitis (03/28) s/p Exp laparotomy - on Atbx 2. s/p Code Blue/Cardiac arrest/Vent arrhythmia requiring CPR (03/28)- off Pressors/Amiodarone drip 3. Acute hypoxic respiratory failure (03/20) s/p Mech Vent. failed extubation - reintubated 4. Toxic metabolic encephalopathy. - multifactorial 5. Community-acquired pneumonia with pleural effusion/ hemothorax with acute blood loss anemia. s/p drainage with CT (Chest tube dced) - on Zosyn since admission (Vanc/Flagyl added on 03/28). Completed Azithromycin. 6. Metabolic acidosis/lactic acidosis 7. Severe sepsis with acute organ dysfunction 8. Rhabdomyolysis. CK improving 9. Abnormal troponins, probably secondary to demand ischemia. 10. Peripheral vascular disease/Carotid artery disease/Coronary artery disease. on ASA. Plavix on hold 11. Diabetes mellitus type 2.- on sliding scale 12. h/o Hypertension. 13. Anxiety/depression. 14. Peripheral neuropathy/Chronic pain syndrome. 15. Hyperlipidemia. 16. Gastroesophageal reflux disease. 17. Benign prostatic hypertrophy. 18. Chronic obstructive pulmonary disease. - on nebs 19. Hyponatremia/Acute kidney injury on chronic kidney disease stage 2/ Hyperkalemia - resolved 20. Acute blood loss anemia - s/p 1 unit PRBC PLAN: * On Zosyn/Vanc * Gen surg/Cardiology/Critical care following * Cont current supportive care * Plavix on hold * AM labs * on TPN * Cont current meds as below Review of Systems - Review of Systems Other: Cannot obtain due to sedation - Medications/Allergies Allergies/Adverse Reactions: Allergies Allergy/AdvReac Type Severity Reaction Status Date / Time No Known Allergies Allergy Verified 08/08/16 08:56 Medications: Current Medications Acetaminophen (Tylenol) 650 mg ID Q6H PRN PRN Reason: Fever > 101 or Mild Pain Last Admin: 03/24/17 00:13 Dose: 650 mg Acetaminophen (Tylenol Elixir) 650 mg PO Q6H PRN PRN Reason: Fever > 101 or Mild Pain Last Admin: 03/30/17 07:12 Dose: 650 mg Albuterol/Ipratropium (Duoneb) 3 ml NEB [id number] MIKE Last Admin: 03/30/17 19:22 Dose: 3 ml Albuterol/Ipratropium (Duoneb) 3 ml NEB [id number] PRN PRN Reason: SOB &/or Wheezing Aspirin (Aspirin) 300 mg ID DAILY [facility] Bisacodyl (Dulcolax) 10 mg ID DAILYPRN PRN PRN Reason: Constipation Last Admin: 03/25/17 08:44 Dose: 10 mg Docusate Sodium (Colace) 100 mg PO BID [facility] Last Admin: 03/30/17 09:01 Dose: Not Given Famotidine (Pepcid) 20 mg IVPB BID [facility] Last Admin: 03/30/17 08:59 Dose: 20 mg Hydralazine HCl (Apresoline) 10 mg SLOW IVP Q6H PRN PRN Reason: FOR SBP > 180 Last Admin: 03/24/17 04:27 Dose: 10 mg Piperacillin Sod/Tazobactam (Sod 3.375 gm/ Sodium Chloride) 100 mls @ 200 mls/ hr IVPB Q8HR [facility] Last Admin: 03/30/17 13:02 Dose: 100 mls Potassium Chloride 40 meq/ (Sodium Chloride) 270 mls @ 135 mls/hr IVPB ASDIR PRN PRN Reason: FOR SERUM K+ 2.5 - 3.5 Last Admin: 03/25/17 10:55 Dose: 270 mls Potassium Chloride 40 meq/ (Device) 100 mls @ 50 mls/hr IVPB ASDIR PRN PRN Reason: FOR SERUM K+ 2.5 - 3.5 Last Admin: 03/27/17 14:22 Dose: 100 mls Magnesium Sulfate 1 gm/ Sodium (Chloride) 102 mls @ 102 mls/hr IV PRN PRN PRN Reason: MAG LEVEL 1.4 - 2.0 Magnesium Sulfate 2 gm/ Device 100 mls @ 100 mls/hr IVPB ASDIR PRN PRN Reason: MAGNESIUM < 1.4 Last Admin: 03/27/17 10:48 Dose: 100 mls Potassium Phosphate 9 mmol/ (Sodium Chloride) 103 mls @ 25.75 mls/hr IVPB ASDIR PRN PRN Reason: Phosphate 1.0-1.8 Potassium Phosphate 12 mmol/ (Sodium Chloride) 254 mls @ 63.5 mls/hr IV ASDIR PRN PRN Reason: Serum phosphate 0.5-0.9 Potassium Phosphate 15 mmol/ (Sodium Chloride) 255 mls @ 63.75 mls/hr IV ASDIR PRN PRN Reason: Serum Phos < 0.5 Norepinephrine Bitartrate (Levophed) 250 mls @ 0 mls/hr IVPB INF PRN; Protocol ; Titrate PRN Reason: Blood Pressure Last Admin: 03/29/17 01:23 Dose: 250 mls Lactated Ringer's (Lactated Ringer's) 1,000 mls @ 0 mls/hr IV .Q0M MIKE PRN Reason: As Directed Last Admin: 03/30/17 05:44 Dose: 1,000 mls Fentanyl (Fentanyl Cadd) 250 mls @ 0 mls/hr IVPB INF MIKE; Titrate PRN Reason: Protocol Stop: 04/28/17 19:04 Last Admin: 03/29/17 19:34 Dose: 250 mls Acetaminophen 1,000 mg/ Device 100 mls @ 400 mls/hr IVPB Q6H PRN PRN Reason: Fever/Mild Pain Stop: 03/31/17 08:51 Sodium Acetate 80 meq/Potassium Acetate 50 meq/Potassium Phosphate 10 mmol/ Calcium Gluconate 15 meq/Magnesium Sulfate 10 meq/Multivitamins 10 ml/ TRACE ELEMENT CONCENTRATE 1 ml/Insulin Human Regular 30 units / Dextrose/Water/ Sterile Water/ Amino Acids 1,464.705 mls @ 61.029 mls/hr IV 1400 MIKE Last Admin: 03/30/17 13:32 Dose: 1,464.705 mls Vancomycin HCl 2 gm/ Sodium (Chloride) 500 mls @ 250 mls/hr IVPB 1300 MIKE Insulin Human NPH (Humulin N) 15 unit SC DAILY [facility] Last Admin: 03/30/17 09:01 Dose: 15 unit Insulin Human Regular (Humulin R) 0 units SC .MODERATE SLIDING SC PRN PRN Reason: Moderate Correctional Scale Last Admin: 03/30/17 16:20 Dose: 4 unit Lactulose (Lactulose) 20 gm PO DAILYPRN PRN PRN Reason: Constipation Magnesium Oxide (Magnesium Oxide) 400 mg PO BIDPRN PRN PRN Reason: FOR SERUM MAG 1.4 - 2.0 Magnesium Oxide (Magnesium Oxide) 800 mg PO PRN PRN PRN Reason: FOR SERUM MAG < 1.4 Mineral Oil/White Petrolatum (Lacri-Lube Ointment) 0 gm EA EYE PRN PRN PRN Reason: Dry Eyes Miscellaneous Medication (Pharmacy To Dose) 1 each IVPB PRN PRN PRN Reason: Pharmacy to dose Miscellaneous Medication (Phos-Nak) 1 pkt PO TIDPRN PRN PRN Reason: FOR PHOS LEVEL 1.0 - 1.8 Miscellaneous Medication (Phos-Nak) 2 pkt PO TIDPRN PRN PRN Reason: FOR PHOS LEVEL 0.5 - 1.0 Miscellaneous Medication (Pharmacy To Dose) 1 each IVPB PRN PRN PRN Reason: Pharmacy to dose Discontinue Previous Narcotic Pain Medications And Benzodiazepines 1 each FS .ONE [facility] Stop: 04/27/17 10:01 Ondansetron HCl (Zofran) 4 mg IVP Q6H PRN PRN Reason: Nausea/Vomiting Last Admin: 03/27/17 16:05 Dose: 4 mg Potassium Chloride (K-Dur) 40 meq PO ASDIR PRN PRN Reason: FOR SERUM K+ 2.5 - 3.5 Potassium Chloride (Klor-Con) 40 meq PER TUBE ASDIR PRN PRN Reason: FOR SERUM K+ 2.5-3.5 Sodium Chloride (Flush - Normal Saline) 10 ml IVF Q12HR MIKE Last Admin: 03/30/17 09:48 Dose: Not Given Sodium Chloride (Flush - Normal Saline) 10 ml IVF PRN PRN PRN Reason: Saline Flush
[2017-03-30] MEDS ORDERED: Dextrose 5% in Water 1,000 ML IV SCH (22:00)
--- NOTE | 2017-03-30 23:47 | PRG ---
DATE OF SERVICE: 03/30/2017 SERVICE: Pulmonary Medicine. INTERVAL HISTORY: The patient is doing really well from a respiratory standpoint. He is settling do wn in his respirations. He cannot provide any additional elements of the history because he is curre ntly encephalopathic and intubated. He is yet to wake or make a significant neurologic recovery at t his time. He continues to have intermittent fevers. PHYSICAL EXAMINATION: VITAL SIGNS: Afebrile, currently with a T-max this morning of 102.1, pulse 71, blood pressure 142/46 , respirations 15, saturation 97% on 40% FIO2 and a PEEP of 5. GENERAL: The patient is intubated. He is encephalopathic. HEENT: Normocephalic, atraumatic. Sclerae are white, conjunctivae pink. Oral mucosa is moist witho ut lesions. Pupils are working. NEUROLOGIC: He is overbreathing the ventilator and demonstrates a cough. With noxious stimuli, he i s starting to have a little bit more withdrawing demonstrates a grimace in all 4 extremities. That kalina dempsey said, I do not see anything that is higher function. LABORATORY DATA: WBC 8.5, hemoglobin 7.3, platelets 155,000. Band counts are starting to improve at 31%. Lactate has resolved to 1.7. Blood sugars ranged from 157-283. Creatinine is down trending t o 1.58, BUN 43 and stable. Anion gap has resolved. Bicarb is returning to the normal range, chlorid e 118, sodium 145. Magnesium and phosphorus are all within normal limits. C. diff antigen and toxin are negative. Blood cultures are negative x2. Urine culture is also negative. ASSESSMENT: 1. Acute hypoxic respiratory failure. 2. Community-acquired pneumonia. 3. Acute blood loss anemia secondary to hemothorax, resolved. 4. Septic shock. 5. Gross peritonitis secondary to perforated viscus. 6. Metabolic encephalopathy, hopefully. 7. Anoxic brain injury, likely. 8. Acute kidney injury, resolving. PLAN: I will drop his pressure control above PEEP to 21 cm of water, also decrease his rate slightly . We will start to introduce a little bit of free water as his chloride and sodium are starting to c reep upward. Supportive care will be continued through the weekend. Hopefully, he will make neurolo gic recovery. If he does not, the patient's has already suggested that he would not want to blaise e in a permanently debilitated state and would be transitioning over to comfort care only. His band count is starting to decrease and so my suspicion is we are getting ahead of the inflammatory profile . That being said, if he has recurrence in sepsis and septic shock and end-organ damage, we may need to assess the pleural space once again for possible empyema. My expectations are that the white blo od cell count is going to rebound dramatically before it settles back down. CRITICAL CARE TIME: 30 minutes.
[2017-03-31] MEDS: Insulin Regular 300 UNITS/3 ML VIAL SC PRN ×5 (00:06→19:57)
[2017-03-31 04:54] LABS: Anion Gap 9 mmol/L (10-20); BUN (Urea Nitrogen) 41 mg/dL (8.4-25.7); Calc. Creatinine Clearance 62 mL/min (70-130); Calcium 6.7 mg/dL (7.8-10.44); Carbon Dioxide 23 mmol/L (23-31); Chloride 119 mmol/L (98-107); Estimated GFR-MDRD 47; Magnesium 2.3 mg/dL (1.6-2.6); Phosphorus 2.4 mg/dL (2.3-4.7)
[2017-03-31 05:21] LABS: CK (CPK) 14957 U/L (30-200)
[2017-03-31] MEDS: Piperacillin/Tazobactam 3.375 GM in Sodium Chloride 0.9% 100 ML IVPB SCH ×3 (05:22→22:11)
[2017-03-31] MEDS: Potassium Chloride 40 MEQ in Premix Bag 1 BAG IVPB PRN (05:32)
[2017-03-31 05:47] LABS: Anisocytosis SLIGHT = 6-15 cells (100X) (0-5/hpf); Band 9 % (5-11); Hematocrit 24.2 % (42.0-52.0); Macrocytosis SLIGHT = 6-15 cells (100X) (0-5/hpf); Mean Platelet Volume 8.6 fL (7.4-10.4); Neutrophil 64 % (42-75); Nucleated RBC 5 % (0); Polychromasia SLIGHT = 2-3 cells (100X) (0-2/hpf); Red Blood Cell (RBC) Count 2.34 mill/uL (4.70-6.10); White Blood Cell (WBC) Count 6.5 thou/uL (4.8-10.8)
--- NOTE | 2017-03-31 08:32 | PRG ---
DATE OF SERVICE: 03/31/2017 SUBJECTIVE: The patient's postop left colectomy for ruptured sigmoid colon. The patient remains off pressors, hemodynamically stable, still intubated. PHYSICAL EXAMINATION: VITAL SIGNS: Heart rate is 72 and blood pressure 152/51. Afebrile. Urine output is 1350 for the sh ift. BHASKAR in the right abdomen 160. Gastric drainage 160, still has 150 from his chest tube with no a ir leak. GASTROINTESTINAL: His abdomen is distended. The colostomy in the left upper quadrant is viable with a little bit of air and stool in the bag. LABORATORY DATA: White blood cell count is 6, hemoglobin 7.8, platelets are down to 115. Sodium 148 , potassium 3.4, creatinine is down 1.47, and glucose 291. ASSESSMENT: Postoperative left colectomy for ischemic perforation. PLAN: Continue present care. Continue antibiotics. Already on TPN.
[2017-03-31] MEDS: Aspirin 300 MG Suppository PR SCH (08:50)
[2017-03-31] MEDS: Famotidine/PF 20 mg/2ml Vial IVPB SCH ×2 (08:50→19:59)
[2017-03-31] MEDS: NPH, Human Insulin Isophane 300 UNIT/3 ML VIAL SC SCH (08:52)
[2017-03-31] MEDS ORDERED: Morphine 10 MG/ML VIAL SLOW IVP PRN (10:08)
[2017-03-31] MEDS: Micafungin 100 MG in Sodium Chloride 0.9% 100 ML IVPB SCH (11:23)
[2017-03-31] MEDS: Morphine 4 MG/ML VIAL SLOW IVP PRN (12:47)
[2017-03-31] MEDS: POTASSIUM PHOSPHATE IV SCH ×10 (13:53)
[2017-03-31] MEDS: [UNRECOGNIZED DRUG - OTHER] IV SCH ×10 (13:53)
[2017-03-31] MEDS: POTASSIUM ACETATE IV SCH ×10 (13:53)
[2017-03-31] MEDS: SODIUM ACETATE IV SCH ×10 (13:53)
[2017-03-31] MEDS: Clindamycin/D5W 900 MG in Premix Bag 1 BAG IVPB SCH ×2 (13:56→22:07)
--- NOTE | 2017-03-31 14:36 | PRG ---
DATE OF SERVICE: 03/31/2017 SUBJECTIVE: Mr. Bennett surprisingly made eye contact with me when I walked in the room, held up his hand. He did squeeze my hand, but I could not get him to do it repeatedly. His started talking to him and he looked over at her and made eye contact with her, so obviously there is some improvement compared to the past exams what I have been told. OBJECTIVE: VITAL SIGNS: He is afebrile, heart rate is 70, blood pressure is 141/63 and respiratory rate 16-21. LUNGS: Clear anteriorly. HEART: Regular rhythm. ABDOMEN: Soft. It is diffusely tender as expected. He grimaces with abdominal palpation. LABORATORY DATA: White count is 6.5, hemoglobin is 7.8 and platelets 115. Sodium 148, potassium 3.4, chloride 119, bicarbonate 23, BUN 41 and creatinine 1.47. IMPRESSION: 1. Status post arrest. 2. Acute renal dysfunction on top of chronic kidney disease. 3. Status post laparotomy. 4. Hypoperfusion injury that appears to be improving. I would like to get him off the fentanyl drip, place him on p.r.n. morphine and then put him on a Precedex drip. 5. Status post left colectomy for an ischemic perforation with peritonitis. Blood cultures are growing an alpha hemolytic strep from the bacillus species. Sensitivities are not back yet. He is on Zosyn and vancomycin. With his renal dysfunction, his cultures do not identify a Staphylococcal organism; we might consider cutting back on the vancomycin or discontinuing it. This would cover Enterococcus, but not be more appropriate. Add Cleocin to his antimicrobial regimen and add an antifungal agent since, in theory, he is at risk for component of fungal colonization since he had already been on antibiotics when he was admitted. We will be happy to continue to follow him. I met with the and answered all of her questions. Critical care time 35 min. MARIA DEL CARMEN
--- NOTE | 2017-03-31 14:54 | PDOC.PN ---
- Subjective Encounter Start Date: 03/31/17 Encounter Start Time: 14:51 Patient seen and examined. No new complaints. No overnight events intubated and sedated - Objective MAR Reviewed: Yes Vital Signs & Weight: Vital Signs (12 hours) Temp Pulse Resp BP Pulse Ox 03/31/17 14:47 66 151/58 H 03/31/17 14:46 66 15 100 03/31/17 12:00 98.9 F 24 H 03/31/17 11:38 74 180/64 H 03/31/17 11:37 73 19 100 03/31/17 10:00 23 H 03/31/17 08:24 72 141/63 H 03/31/17 08:23 70 21 H 100 03/31/17 08:00 98.9 F 72 16 03/31/17 05:40 16 03/31/17 05:00 98.3 F 03/31/17 04:00 17 Weight Admit Weight 211 lb Weight 225 lb 12.054 oz Most Recent Monitor Data Heart Rate from ECG 75 NIBP 181/64 NIBP BP-Mean 121 Respiration from ECG 22 SpO2 100 I&O: 03/30/17 03/31/17 04/01/17 06:59 06:59 06:59 Intake Total 3116 3718.8 200 Output Total 2470 3395 630 Balance 646 323.8 -430 Result Diagrams: 03/31/17 04:20 03/31/17 04:20 Additional Labs: Accuchecks 03/31/17 03/31/17 03/31/17 11:37 04:30 00:05 POC Glucose 351 H 300 H 292 H 03/30/17 03/30/17 20:41 16:17 POC Glucose 283 H 244 H Phys Exam - Physical Examination intubated Neck: no JVD Respiratory: no wheezing Cardiovascular: no significant murmur Gastrointestinal: soft Musculoskeletal: edema present sedated Dx/Plan - Plan IMPRESSION: 1. Bowel perforation/Peritonitis (03/28) s/p Exp laparotomy - on Atbx 2. s/p Code Blue/Cardiac arrest/Vent arrhythmia requiring CPR (03/28)- off Pressors/Amiodarone drip 3. Acute hypoxic respiratory failure (03/20) s/p Mech Vent. failed extubation - reintubated 4. Toxic metabolic encephalopathy. - multifactorial 5. Community-acquired pneumonia with pleural effusion/ hemothorax with acute blood loss anemia. s/p drainage with CT (Chest tube dced) - on Zosyn since admission (Vanc/Flagyl added on 03/28). Completed Azithromycin. 6. Metabolic acidosis/lactic acidosis 7. Severe sepsis with acute organ dysfunction 8. Rhabdomyolysis. CK improving 9. Abnormal troponins, probably secondary to demand ischemia. 10. Peripheral vascular disease/Carotid artery disease/Coronary artery disease. on ASA. Plavix on hold 11. Diabetes mellitus type 2.- on sliding scale 12. h/o Hypertension. 13. Anxiety/depression. 14. Peripheral neuropathy/Chronic pain syndrome. 15. Hyperlipidemia. 16. Gastroesophageal reflux disease. 17. Benign prostatic hypertrophy. 18. Chronic obstructive pulmonary disease. - on nebs 19. Hyponatremia/Acute kidney injury on chronic kidney disease stage 2/ Hyperkalemia - resolved 20. Acute blood loss anemia - s/p 1 unit PRBC PLAN: * On Zosyn/Vanc * Gen surg/Cardiology/Critical care following * Cont current supportive care * Plavix on hold * AM labs * on TPN * Cont current meds as below * scd for dvt prophylaxis
[2017-03-31] MEDS: Lactated Ringer's 1,000 ML IV SCH (19:46)
[2017-04-01] MEDS: Insulin Regular 300 UNITS/3 ML VIAL SC PRN ×2 (00:30→04:30)
[2017-04-01 05:22] LABS: Hematocrit 24.1 % (42.0-52.0); Mean Platelet Volume 9.3 fL (7.4-10.4); Red Blood Cell (RBC) Count 2.32 mill/uL (4.70-6.10); White Blood Cell (WBC) Count 5.4 thou/uL (4.8-10.8)
[2017-04-01 05:23] LABS: Band 21 % (5-11); Neutrophil 56 % (42-75); Nucleated RBC 9 % (0)
[2017-04-01 05:30] LABS: Anion Gap 9 mmol/L (10-20); BUN (Urea Nitrogen) 43 mg/dL (8.4-25.7); Calc. Creatinine Clearance 69 mL/min (70-130); Calcium 7.3 mg/dL (7.8-10.44); Carbon Dioxide 23 mmol/L (23-31); Chloride 121 mmol/L (98-107); Estimated GFR-MDRD 51; Phosphorus 1.8 mg/dL (2.3-4.7)
[2017-04-01] MEDS: Piperacillin/Tazobactam 3.375 GM in Sodium Chloride 0.9% 100 ML IVPB SCH ×3 (05:47→22:01)
[2017-04-01] MEDS: Clindamycin/D5W 900 MG in Premix Bag 1 BAG IVPB SCH ×3 (05:47→22:01)
[2017-04-01] MEDS ORDERED: Dextrose 5% in Water 1,000 ML IV PRN (09:19)
[2017-04-01] MEDS ORDERED: Dextrose 50% Abboject 50 ML SYRINGE SLOW IVP PRN (09:19)
[2017-04-01] MEDS: Famotidine/PF 20 mg/2ml Vial IVPB SCH ×2 (09:22→20:30)
[2017-04-01] MEDS: Aspirin 300 MG Suppository PR SCH (09:23)
[2017-04-01] MEDS: NPH, Human Insulin Isophane 300 UNIT/3 ML VIAL SC SCH (09:23)
[2017-04-01] MEDS: HumaLOG 300 UNITS/3 ML VIAL SC PRN ×4 (09:52→20:30)
[2017-04-01] MEDS: Morphine 4 MG/ML VIAL SLOW IVP PRN ×2 (10:48→13:33)
[2017-04-01] MEDS: Micafungin 100 MG in Sodium Chloride 0.9% 100 ML IVPB SCH (11:06)
--- NOTE | 2017-04-01 12:45 | PRG ---
DATE OF SERVICE: 04/01/2017 SUBJECTIVE: Mr. Bennett is awake and up more, following some commands. OBJECTIVE: VITAL SIGNS: Afebrile. Vital signs are stable off pressors. Urine output is improved with 1240 ove rnight. CHEST: Coarse. ABDOMEN: Distended, but there is stool and air in his bag. Midline wound VAC, BHASKAR serosanguineous. LABORATORY DATA: Sodium 149, creatinine 1.37, potassium is 3.8. White cell count is 5 and 21 bands, hemoglobin 7.6. ASSESSMENT: Left sigmoid colectomy and colostomy for perforated colon. PLAN: Rewrote TPN, wrote for increased more aggressive sliding scale, encouraged by his improved men joie status.
[2017-04-01] MEDS: hydrALAZINE 20 MG/ML VIAL SLOW IVP PRN (13:03)
[2017-04-01] MEDS: POTASSIUM ACETATE IV SCH ×10 (14:00)
[2017-04-01] MEDS ORDERED: MAGNESIUM SULFATE IV SCH ×4 (14:00)
[2017-04-01] MEDS: [UNRECOGNIZED DRUG - OTHER] IV SCH ×10 (14:00)
[2017-04-01] MEDS: POTASSIUM PHOSPHATE IV SCH ×10 (14:00)
[2017-04-01] MEDS ORDERED: [UNRECOGNIZED DRUG - OTHER] IV SCH ×4 (14:00)
[2017-04-01] MEDS ORDERED: MULTIVITAMINS IV SCH ×4 (14:00)
[2017-04-01] MEDS: SODIUM ACETATE IV SCH ×10 (14:00)
--- NOTE | 2017-04-01 15:33 | PDOC.PN ---
- Subjective Encounter Start Date: 04/01/17 Encounter Start Time: 15:31 Patient seen and examined. No new complaints. No overnight events - Objective MAR Reviewed: Yes Vital Signs & Weight: Vital Signs (12 hours) Temp Pulse Pulse Pulse Resp BP BP 04/01/17 15:09 72 155/57 H 04/01/17 15:06 73 20 04/01/17 14:00 99.4 F 17 04/01/17 13:03 77 198/55 H 04/01/17 12:08 77 198/55 H 04/01/17 12:02 76 22 H 04/01/17 12:00 100.2 F H 24 H 04/01/17 10:00 23 H 04/01/17 09:48 76 73 197/63 H 04/01/17 09:00 22 H 04/01/17 08:53 73 177/59 H 04/01/17 08:00 100.2 F H 77 23 H 04/01/17 06:33 66 155/49 H 04/01/17 06:32 66 21 H 04/01/17 05:53 20 04/01/17 04:00 98.1 F 18 BP Pulse Ox Pulse Ox Pulse Ox 04/01/17 15:09 04/01/17 15:06 99 04/01/17 14:00 04/01/17 13:03 04/01/17 12:08 04/01/17 12:02 100 04/01/17 12:00 04/01/17 10:00 04/01/17 09:48 204/65 H 100 100 04/01/17 09:00 04/01/17 08:53 04/01/17 08:00 97 04/01/17 06:33 04/01/17 06:32 100 04/01/17 05:53 04/01/17 04:00 Weight Admit Weight 211 lb Weight 223 lb 1.725 oz Most Recent Monitor Data Heart Rate from ECG 71 NIBP 155/57 NIBP BP-Mean 89 Respiration from ECG 17 SpO2 98 I&O: 03/31/17 04/01/17 04/02/17 06:59 06:59 06:59 Intake Total 3718.8 3011.7 740 Output Total 3395 2730 970 Balance 323.8 281.7 -230 Result Diagrams: 04/01/17 04:20 04/01/17 04:20 Additional Labs: Accuchecks 04/01/17 04/01/17 04/01/17 11:48 09:32 04:21 POC Glucose 249 H 283 H 285 H 04/01/17 03/31/17 03/31/17 00:28 19:57 16:59 POC Glucose 286 H 330 H 365 H Phys Exam - Physical Examination intubated HEENT: PERRLA Neck: no JVD coarse bs Cardiovascular: RRR incision looks clean Musculoskeletal: pulses present toes are cyanotic sedated Dx/Plan - Plan 1. Bowel perforation/Peritonitis (03/28) s/p Exp laparotomy - on Atbx 2. s/p Code Blue/Cardiac arrest/Vent arrhythmia requiring CPR (03/28)- off Pressors/Amiodarone drip 3. Acute hypoxic respiratory failure (03/20) s/p Mech Vent. failed extubation - reintubated 4. Toxic metabolic encephalopathy. - multifactorial 5. Community-acquired pneumonia with pleural effusion/ hemothorax with acute blood loss anemia. s/p drainage with CT (Chest tube dced) - on Zosyn since admission (Vanc/Flagyl added on 03/28). Completed Azithromycin. 6. Metabolic acidosis/lactic acidosis 7. Severe sepsis with acute organ dysfunction 8. Rhabdomyolysis. CK improving 9. Abnormal troponins, probably secondary to demand ischemia. 10. Peripheral vascular disease/Carotid artery disease/Coronary artery disease. on ASA. Plavix on hold 11. Diabetes mellitus type 2.- on sliding scale 12. h/o Hypertension. 13. Anxiety/depression. 14. Peripheral neuropathy/Chronic pain syndrome. 15. Hyperlipidemia. 16. Gastroesophageal reflux disease. 17. Benign prostatic hypertrophy. 18. Chronic obstructive pulmonary disease. - on nebs 19. Hyponatremia/Acute kidney injury on chronic kidney disease stage 2/ Hyperkalemia - resolved 20. Acute blood loss anemia - s/p 1 unit PRBC PLAN: * On Zosyn, clinda, micafungin. * Gen surg/Cardiology/Critical care following * Cont current supportive care * criminal attorney input appreciated * AM labs * on TPN * Cont current meds as below * scd for dvt prophylaxis
--- NOTE | 2017-04-01 15:40 | PRG ---
DATE OF SERVICE: 04/01/2017 SUBJECTIVE: Mr. Bennett quickly turned toward me when I walked in the room today and also responded to his quickly. He held up one finger quickly. He is in no distress. His exhaled tidal volumes on minute ventilation are good. His minute ventilation is around 8 liters a minute. He is in no distress, although he does grimace if his abdomen is palpated. This is significant neurological improvement compared to 2 days ago. I have switched him back to volume ventilation with a lower rate anticipating that he may be weanable within a few days. OBJECTIVE: VITAL SIGNS: His blood pressure this afternoon was 155/57, heart rate 72, he is afebrile, respirator y rate is 20. Intake and output is positive 281. LUNGS: Clear anteriorly. HEART: Regular rhythm. ABDOMEN: Soft. EXTREMITIES: Without asymmetry. RADIOGRAPHIC STUDIES: There is no radiograph for the last few days. So we will get a radiograph in t he morning. LABORATORY DATA: White count 5.4, hemoglobin 7.6, platelets 110,000. Sodium 149, potassium 3.8, chl oride 121, bicarbonate 23, BUN 43, creatinine 1.37, glucose 273. IMPRESSION: 1. Respiratory failure after a perforated viscus. 2. Status post pulseless electrical activity arrest associated with sepsis with improving hypoperfus ion encephalopathy. 3. Hyperchloremic acidosis. 4. Acute on chronic kidney disease. 5. Blood loss anemia. Hemoglobin has been stable for 3 days. 6. Diabetes. 7. Deconditioning. 8. Obesity. PLAN: Begin the weaning process. It is unclear with his deconditioning and obesity whether or not h e will tolerate extubation, but we will start working in that direction. I met with his and ans wered all of her questions. Critical care time was 30 minutes.
[2017-04-02] MEDS: Morphine 4 MG/ML VIAL SLOW IVP PRN ×2 (00:10→20:50)
[2017-04-02] MEDS: HumaLOG 300 UNITS/3 ML VIAL SC PRN ×6 (00:11→20:21)
[2017-04-02 04:31] LABS: PTT 30.7 SEC (22.9-36.1); Prothrombin Time 16.4 SEC (12.0-14.7)
[2017-04-02 04:36] LABS: ALT (SGPT) 131 U/L (8-55); AST (SGOT) 191 U/L (5-34); Alkaline Phosphatase 99 U/L (40-150); Anion Gap 10 mmol/L (10-20); BUN (Urea Nitrogen) 45 mg/dL (8.4-25.7); Bilirubin, Total 1.8 mg/dL (0.2-1.2); Calc. Creatinine Clearance 68 mL/min (70-130); Calcium 7.7 mg/dL (7.8-10.44); Carbon Dioxide 24 mmol/L (23-31); Chloride 121 mmol/L (98-107); Cholesterol 71 mg/dl (< 200 Desired); Estimated GFR-MDRD 50; Globulin 3.8 g/dL (2.4-3.5); LDL Cholesterol, Calculated 22 mg/dL; Phosphorus 3.4 mg/dL (2.3-4.7); Protein, Total 5.5 g/dL (5.8-8.1)
[2017-04-02 04:59] LABS: Band 18 % (5-11); Hematocrit 27.4 % (42.0-52.0); Hypochromia SLIGHT = 6-15 cells (100X) (0-5/hpf); Macrocytosis SLIGHT = 6-15 cells (100X) (0-5/hpf); Mean Platelet Volume 10.1 fL (7.4-10.4); Neutrophil 63 % (42-75); Nucleated RBC 5 % (0); Polychromasia SLIGHT = 2-3 cells (100X) (0-2/hpf); White Blood Cell (WBC) Count 7.2 thou/uL (4.8-10.8)
[2017-04-02] MEDS: Piperacillin/Tazobactam 3.375 GM in Sodium Chloride 0.9% 100 ML IVPB SCH ×3 (05:30→21:04)
[2017-04-02] MEDS: Clindamycin/D5W 900 MG in Premix Bag 1 BAG IVPB SCH (05:31)
[2017-04-02 08:03] LABS: Mechanical Tidal Volume 500 ml; Modified Allen's Test POSITIVE; Oxyhemoglobin 91.7 % (94.0-97.0); Sodium 152 mmol/L (135-148); Vent YES
[2017-04-02 08:04] LABS: Mode SIMV.PSV; Pressure Support 10 cmH2O
[2017-04-02] MEDS ORDERED: Morphine 10 MG/ML CARPUJECT SLOW IVP PRN (08:45)
[2017-04-02] MEDS: NPH, Human Insulin Isophane 300 UNIT/3 ML VIAL SC SCH (08:48)
[2017-04-02] MEDS: Famotidine/PF 20 mg/2ml Vial IVPB SCH ×2 (08:48→20:20)
[2017-04-02] MEDS: Aspirin 300 MG Suppository PR SCH (08:48)
--- NOTE | 2017-04-02 08:50 | RAD ---
PORTABLE CHEST: Date: 04/02/17 COMPARISON: 03/30/17 study. HISTORY: Respiratory distress. FINDINGS: Heart size is borderline. Endotracheal and NG tubes are in satisfactory position. Pleural and parench ymal changes in the right base are stable. No new process. IMPRESSION: Stable chest. POS: TPC
[2017-04-02] MEDS: Micafungin 100 MG in Sodium Chloride 0.9% 100 ML IVPB SCH (10:05)
--- NOTE | 2017-04-02 10:27 | PRG ---
DATE OF SERVICE: 04/02/2017 SUBJECTIVE: Mr. Bennett is waking up to voice; however, he is fairly agitated. His sugars have been v kenneth high on the TPN. PHYSICAL EXAMINATION: Afebrile. Vital signs are stable. Good urine output. Kidney function return ing to normal. His wound VAC is getting changed by Wound Care now. Ostomy has some mild ischemia, b ut it is viable. There is air and stool in the bag. ASSESSMENT: Postoperative left sigmoid colectomy, colostomy, resolving sepsis. PLAN: Add insulin to the TPN, but start trickle feeds as well. He has tolerated trickle feeds today . Discontinue TPN tomorrow. Advance tube feeds.
[2017-04-02] MEDS ORDERED: [UNRECOGNIZED DRUG - OTHER] IV SCH ×10 (10:45→14:00)
[2017-04-02] MEDS ORDERED: TRACE ELEMENT IV SCH ×10 (10:45→14:00)
[2017-04-02] MEDS ORDERED: MULTIVITAMINS IV SCH ×10 (10:45→14:00)
[2017-04-02] MEDS ORDERED: Furosemide 40 MG/4 ML VIAL SLOW IVP SCH (13:00)
[2017-04-02] MEDS: Dextrose 5% in Water 1,000 ML IV SCH (13:49)
--- NOTE | 2017-04-02 14:21 | PRG ---
DATE OF SERVICE: 04/02/2017 SERVICE: Pulmonary Medicine. INTERVAL HISTORY: The patient is doing fine from a respiratory standpoint. Over the weekend, he act ually woke up a little bit. He cannot provide any additional elements of the history right now. He does attend whenever he opens his eyes. He follows some simple commands. He is extraordinarily weak . PHYSICAL EXAMINATION: VITAL SIGNS: Afebrile, pulse 81, blood pressure 141/68, respirations 27, saturation 94% on 30% FIO2 and PEEP of 5. GENERAL: Patient is intubated and sedated. HEENT: Normocephalic, atraumatic. Sclerae are white, conjunctivae pink. Oral and nasal mucosa is m oist without lesions. LUNGS: Decent air entry. There are rhonchi and crackles both present. Rhonchi are changed with cou gh. HEART: Normal rate, regular. ABDOMEN: Soft. There is tenderness to palpation throughout without rebound or guarding. Bowel soun ds are absent. GENITOURINARY: Mandel catheter in place. NEUROLOGIC: Grossly nonfocal. MUSCULOSKELETAL: No cyanosis or clubbing. There is diffuse 2+ edema throughout. LABORATORY DATA: WBC 7.2, hemoglobin 8.7, platelets 139,000 and rebounding. INR 1.3. PH 7.44, pCO2 of 32, pO2 63. Creatinine 1.39 and stable. Chloride 121, sodium 151. AST and ALT are down trendin g. Blood sugars ranged from 266-404. Prealbumin is low. Albumin 1.7. IMAGING: Chest x-ray demonstrates a stable right-sided pleural parenchymal opacification. Endotrach eal tube is in good position. There is an intracatheter coursing well below the level of the diaphra gm. ASSESSMENT: 1. Acute hypoxic respiratory failure. 2. Community-acquired pneumonia. 3. Acute blood loss anemia secondary to hemothorax, stable. 4. Septic shock. 5. Gross peritonitis secondary to perforated viscus. 6. Metabolic encephalopathy, improving. 7. Acute kidney injury, improving. PLAN: We will continue to transition him down to lower ventilator support. I will provide him with a couple of doses of Lasix starting today to see if this improves on some of his oxygenation. In add ition, actually free water will be added to his IV fluids. Insulin will be increased as the patient' s blood sugars are little out of control. CRITICAL CARE TIME: 30 minutes.
--- NOTE | 2017-04-02 17:28 | PDOC.PN ---
- Subjective Encounter Start Date: 04/02/17 Encounter Start Time: 17:27 Patient seen and examined. No new complaints. No overnight events - Objective MAR Reviewed: Yes Vital Signs & Weight: Vital Signs (12 hours) Temp Pulse Resp BP Pulse Ox 04/02/17 16:34 81 165/58 H 04/02/17 14:50 105 H 26 H 98 04/02/17 14:00 25 H 04/02/17 12:00 99.3 F 20 04/02/17 11:30 81 141/68 H 04/02/17 10:00 25 H 04/02/17 08:00 98.9 F 84 24 H 95 04/02/17 07:19 78 177/62 H 04/02/17 07:17 80 28 H 98 04/02/17 06:00 20 Weight Admit Weight 211 lb Weight 227 lb 1.218 oz Most Recent Monitor Data Heart Rate from ECG 78 NIBP 158/57 NIBP BP-Mean 105 Respiration from ECG 18 SpO2 100 I&O: 04/01/17 04/02/17 04/03/17 06:59 06:59 06:59 Intake Total 3011.7 2654 373 Output Total 2730 2118 300 Balance 281.7 536 73 Result Diagrams: 04/02/17 03:50 04/02/17 03:50 Additional Labs: Accuchecks 04/02/17 04/02/17 04/02/17 12:55 07:35 03:57 POC Glucose 443 H 404 H 320 H 04/01/17 04/01/17 04/01/17 23:58 20:25 16:00 POC Glucose 299 H 266 H 259 H Phys Exam - Physical Examination intubated HEENT: PERRLA Neck: no JVD coarse bs Cardiovascular: no significant murmur Gastrointestinal: soft dressing in place Musculoskeletal: pulses present Neurological: moves all 4 limbs Dx/Plan - Plan * 1. Bowel perforation/Peritonitis (03/28) s/p Exp laparotomy - on Atbx 2. s/p Code Blue/Cardiac arrest/Vent arrhythmia requiring CPR (03/28)- off Pressors/Amiodarone drip 3. Acute hypoxic respiratory failure (03/20) s/p Mech Vent. failed extubation - reintubated 4. Toxic metabolic encephalopathy. - multifactorial 5. Community-acquired pneumonia with pleural effusion/ hemothorax with acute blood loss anemia. s/p drainage with CT (Chest tube dced) - on Zosyn since admission (Vanc/Flagyl added on 03/28). Completed Azithromycin. 6. Metabolic acidosis/lactic acidosis 7. Severe sepsis with acute organ dysfunction 8. Rhabdomyolysis. CK improving 9. Abnormal troponins, probably secondary to demand ischemia. 10. Peripheral vascular disease/Carotid artery disease/Coronary artery disease. on ASA. Plavix on hold 11. Diabetes mellitus type 2.- on sliding scale 12. h/o Hypertension. 13. Anxiety/depression. 14. Peripheral neuropathy/Chronic pain syndrome. 15. Hyperlipidemia. 16. Gastroesophageal reflux disease. 17. Benign prostatic hypertrophy. 18. Chronic obstructive pulmonary disease. - on nebs 19. Hyponatremia/Acute kidney injury on chronic kidney disease stage 2/ Hyperkalemia - resolved 20. Acute blood loss anemia - s/p 1 unit PRBC PLAN: * On Zosyn, micafungin. * Gen surg/Cardiology/Critical care following * Cont current supportive care * sleeve sewer input appreciated * AM labs * on TPN, try po feeds, if tolerated will d/c tpn * Cont current meds * scd for dvt prophylaxis
[2017-04-02] MEDS ORDERED: Morphine 4 MG/ML VIAL ONE (17:38)
[2017-04-02] MEDS: hydrALAZINE 20 MG/ML VIAL SLOW IVP PRN (20:27)
[2017-04-02] MEDS: Insulin Detemir 100 UNITS/ML 10 UNITS in Pre-Filled Syringe 1 EACH SC SCH (20:46)
[2017-04-03] MEDS: HumaLOG 300 UNITS/3 ML VIAL SC PRN ×5 (00:04→17:19)
[2017-04-03] MEDS: Dextrose 5% in Water 1,000 ML IV SCH ×2 (01:11→17:17)
[2017-04-03] MEDS: Morphine 4 MG/ML VIAL SLOW IVP PRN ×2 (04:34→21:32)
[2017-04-03 04:53] LABS: PTT 30.6 SEC (22.9-36.1)
[2017-04-03 04:54] LABS: Prothrombin Time 16.6 SEC (12.0-14.7)
[2017-04-03] MEDS: Piperacillin/Tazobactam 3.375 GM in Sodium Chloride 0.9% 100 ML IVPB SCH ×3 (05:12→21:28)
[2017-04-03] MEDS ORDERED: Furosemide 40 MG/4 ML VIAL SLOW IVP SCH (06:00)
[2017-04-03] MEDS ORDERED: Furosemide 20 MG/2 ML VIAL SLOW IVP SCH (06:42)
[2017-04-03] MEDS ORDERED: Senokot S 8.6-50 MG TAB PO SCH (06:45)
--- NOTE | 2017-04-03 07:04 | PRG ---
DATE OF SERVICE: 04/03/2017 SERVICE: Pulmonary Medicine INTERVAL HISTORY: The patient is doing okay from a respiratory standpoint. His abdominal distention is getting worse again. He has increasing tenderness. He is not having any output from the ostomy. Otherwise, there has been no interval change. PHYSICAL EXAMINATION: VITAL SIGNS: Afebrile, pulse 85, blood pressure 154/54, respirations 29, saturation 99% on 28% FIO2 and PEEP of 5. HEENT: Normocephalic, atraumatic. Sclerae are white, conjunctivae pink. Oral and nasal mucosa is m oist without lesions. LUNGS: Decent air entry. There is a prolonged expiratory phase with a little bit of wheezing. No c rackles are appreciated. Rhonchi are present, but clear with cough. HEART: Normal rate, regular. ABDOMEN: Distended. Bowel sounds are present. There is tenderness to palpation throughout. GENITOURINARY: Mandel catheter in place. NEUROLOGIC: Grossly nonfocal. MUSCULOSKELETAL: No cyanosis or clubbing. There is 2+ pitting edema throughout which is a little bi t improved. LABORATORY DATA: Prealbumin 7.0. Glucoses ranging from 313 to 442. IMAGING: Chest x-ray demonstrates right lower lobe pleural parenchymal abnormality. Endotracheal tu be is in good position. There is an enteric catheter in good position as well. ASSESSMENT: 1. Acute hypoxic respiratory failure. 2. Septic shock. 3. Community-acquired pneumonia. 4. Gross peritonitis secondary to perforated viscus. 5. Metabolic encephalopathy, improving. 6. Acute blood loss anemia secondary to hemithorax, stable. 7. Acute kidney injury. PLAN: We will continue to diurese the patient until he returns close to euvolemia. We will wean oxy gen as tolerated. His abdominal distention is getting worse again. We will put him on a bowel regim en to see if we can promote additional motility of his gut. I will follow up on the laboratories thi s afternoon. My suspicion is his electrolytes are going to be slightly abnormal. For the time being, I will continue his free water. Critical care time: 30 minutes.
[2017-04-03] MEDS: Aspirin 300 MG Suppository PR SCH (09:51)
[2017-04-03] MEDS: Insulin Detemir 100 UNITS/ML 10 UNITS in Pre-Filled Syringe 1 EACH SC SCH ×2 (09:52→20:15)
[2017-04-03] MEDS: Famotidine/PF 20 mg/2ml Vial IVPB SCH ×2 (09:54→20:14)
[2017-04-03] MEDS: Senokot S 8.6-50 MG TAB PO SCH ×2 (09:58→20:15)
[2017-04-03 10:13] LABS: #Lymphocytes 1.1 thou/uL (1.20-3.40); #Monocytes 0.3 thou/uL (0.11-0.59); #Neutrophils 6.9 thou/uL (1.40-6.50); %Basophils 0.1 % (0.0-1.0); %Eosinophils 0.1 % (0.0-10.0); %Lymphocytes 12.8 % (21.0-51.0); %Monocytes 3.8 % (0.0-10.0); Hematocrit 26.6 % (42.0-52.0); Mean Platelet Volume 10.5 fL (7.4-10.4); Red Blood Cell (RBC) Count 2.53 mill/uL (4.70-6.10); White Blood Cell (WBC) Count 8.3 thou/uL (4.8-10.8)
--- NOTE | 2017-04-03 10:17 | PRG ---
DATE OF SERVICE: 04/03/2017 SUBJECTIVE: Mr. Bennett is postoperative day #6 from a laparotomy with an extended left hemicolectomy and lysis of adhesions for small-bowel obstruction. He had a markedly abnormal bowel throughout his abdomen. He was septic after the surgery, but his sepsis has improved significantly. He has not req uired pressor medications for several days. He has been afebrile. He has been maintained on TPN, bu t slow tube feeds were started yesterday. His neurological status seems to slowly be improving. His eyes are open. He seems to be making eye contact. He is not truly responding to commands yet, but this is a substantial improvement from the last time I saw him 3-4 days ago. He had some colostomy o utput, but there is nothing in this current ostomy appliance. OBJECTIVE: VITAL SIGNS: On examination, he is afebrile, pulse is 73, blood pressure 138/49. GENERAL: He is resting in bed, intubated, and on some sedation. His urine output yesterday was 6100 mL with diuresis. LUNGS: Clear to auscultation anteriorly. CARDIAC: Regular rate and rhythm. ABDOMEN: Obese and protuberant. He winces with examination. VAC is present in the midline incision . Ostomy was examined on the left upper abdomen. The outer portion of the ostomy appears to be of q uestionable viability, but viable mucosa was seen within 1 cm of the edge of the stoma. The drain in the right lower quadrant is no longer draining clear serosanguineous fluid. This appears to be opaq ue and greenish brown. It is possible that this is enteric contents. I attempted to drain and inspe cted it, it did not have a foul smell, but cultures will be obtained of this. LABORATORY STUDIES: Pending for today. His blood sugars have been quite high and were in the 300s-4 00s. His electrolytes yesterday showed significant hypernatremia and hyperchloremia. Magnesium and phosphate are normal. Liver function tests are somewhat elevated. In summary, he appears to be medically stable. Repeat laboratory studies will be obtained, so I can adjust his TPN accordingly. We will continue slow tube feeds for now through his nasogastric tube. I am concerned about the drain output and this will be followed. If there is evidence of a leak, I m ay have to consider a repeat exploration. I may opt instead to discontinue the drainage and observe him given his tenuous medical status overall.
[2017-04-03 10:36] LABS: Anion Gap 12 mmol/L (10-20); BUN (Urea Nitrogen) 53 mg/dL (8.4-25.7); Calc. Creatinine Clearance 54 mL/min (70-130); Carbon Dioxide 26 mmol/L (23-31); Chloride 114 mmol/L (98-107); Estimated GFR-MDRD 39
[2017-04-03] MEDS: Micafungin 100 MG in Sodium Chloride 0.9% 100 ML IVPB SCH (11:14)
[2017-04-03] MEDS ORDERED: Potassium Chloride 40 MEQ in Premix Bag 1 BAG IVPB SCH (12:45)
--- NOTE | 2017-04-03 13:21 | PDOC.PN ---
- Subjective Encounter Start Date: 04/03/17 Encounter Start Time: 13:20 abdominal distention worse no f/c intubated - Objective MAR Reviewed: Yes Vital Signs & Weight: Vital Signs (12 hours) Temp Pulse Resp BP Pulse Ox 04/03/17 12:00 99 F 20 04/03/17 10:21 75 153/67 H 04/03/17 10:19 75 26 H 99 04/03/17 10:00 18 04/03/17 09:00 98.3 F 04/03/17 08:00 98.2 F 87 20 96 04/03/17 07:57 20 04/03/17 07:50 79 23 H 157/50 H 99 04/03/17 07:00 98.3 F 04/03/17 06:00 19 04/03/17 04:00 98.8 F 25 H 04/03/17 02:24 87 04/03/17 02:23 87 26 H 98 04/03/17 02:00 21 H Weight Admit Weight 211 lb Weight 220 lb 10.923 oz Most Recent Monitor Data Heart Rate from ECG 85 NIBP 182/61 NIBP BP-Mean 118 Respiration from ECG 23 SpO2 96 I&O: 04/02/17 04/03/17 04/04/17 06:59 06:59 06:59 Intake Total 2654 4310.3 220 Output Total 2118 6250 1625 Balance 536 -1939.7 -1405 Result Diagrams: 04/03/17 10:04 04/03/17 10:04 Additional Labs: Accuchecks 04/03/17 04/03/17 04/03/17 12:33 08:12 04:16 POC Glucose 355 H 325 H 313 H 04/02/17 04/02/17 04/02/17 23:58 20:16 17:26 POC Glucose 372 H 442 H 416 H 04/02/17 12:55 POC Glucose 443 H Phys Exam - Physical Examination intubated HEENT: PERRLA Neck: no JVD Respiratory: wheezing present rhonchi present Cardiovascular: RRR distended, bs present Musculoskeletal: edema present Dx/Plan (1) Acute hypoxemic respiratory failure Code(s): J96.01 - ACUTE RESPIRATORY FAILURE WITH HYPOXIA Status: Acute (2) Septic shock Code(s): A41.9 - SEPSIS, UNSPECIFIED ORGANISM; R65.21 - SEVERE SEPSIS WITH SEPTIC SHOCK Status: Acute (3) CAP (community acquired pneumonia) Code(s): J18.9 - PNEUMONIA, UNSPECIFIED ORGANISM Status: Acute (4) Peritonitis Code(s): K65.9 - PERITONITIS, UNSPECIFIED Status: Acute Comment: s/p sigmoid resection with colostomy (5) Acute blood loss anemia Code(s): D62 - ACUTE POSTHEMORRHAGIC ANEMIA Status: Acute (6) ARF (acute renal failure) Status: Acute (7) Metabolic encephalopathy Code(s): G93.41 - METABOLIC ENCEPHALOPATHY Status: Acute - Plan * cont diurese * wean oxygen as tolerated * f/u labs * cont abx * cont tpn * tight glucose control * f/u surg plan and templer head plan
[2017-04-04] MEDS: Dextrose 5% in Water 1,000 ML IV SCH ×2 (03:44→20:31)
[2017-04-04] MEDS: HumaLOG 300 UNITS/3 ML VIAL SC PRN ×3 (03:51→20:13)
[2017-04-04 04:17] LABS: PTT 31.9 SEC (22.9-36.1); Prothrombin Time 16.4 SEC (12.0-14.7)
[2017-04-04] MEDS: Piperacillin/Tazobactam 3.375 GM in Sodium Chloride 0.9% 100 ML IVPB SCH ×4 (06:07→21:26)
[2017-04-04 07:33] LABS: Anion Gap 12 mmol/L (10-20); BUN (Urea Nitrogen) 49 mg/dL (8.4-25.7); Calc. Creatinine Clearance 56 mL/min (70-130); Calcium 7.9 mg/dL (7.8-10.44); Carbon Dioxide 26 mmol/L (23-31); Chloride 114 mmol/L (98-107); Estimated GFR-MDRD 44
[2017-04-04 07:47] LABS: Anisocytosis SLIGHT = 6-15 cells (100X) (0-5/hpf); Band 26 % (5-11); Hematocrit 27.7 % (42.0-52.0); Macrocytosis SLIGHT = 6-15 cells (100X) (0-5/hpf); Mean Platelet Volume 10.4 fL (7.4-10.4); Neutrophil 56 % (42-75); Polychromasia SLIGHT = 2-3 cells (100X) (0-2/hpf); Red Blood Cell (RBC) Count 2.63 mill/uL (4.70-6.10); White Blood Cell (WBC) Count 10.9 thou/uL (4.8-10.8)
[2017-04-04] MEDS: Aspirin 300 MG Suppository PR SCH (08:46)
[2017-04-04] MEDS: Famotidine/PF 20 mg/2ml Vial IVPB SCH ×2 (08:46→20:37)
[2017-04-04] MEDS: Insulin Detemir 100 UNITS/ML 10 UNITS in Pre-Filled Syringe 1 EACH SC SCH ×2 (08:47→20:14)
[2017-04-04] MEDS: Senokot S 8.6-50 MG TAB PO SCH ×2 (08:47→20:37)
[2017-04-04] MEDS: Micafungin 100 MG in Sodium Chloride 0.9% 100 ML IVPB SCH (11:07)
--- NOTE | 2017-04-04 14:19 | PRG ---
DATE OF SERVICE: 04/04/2017 SUBJECTIVE: Mr. Bennett is postoperative day #7 from laparotomy with an extended left hemicolectomy fo r feculent peritonitis secondary to gangrenous colitis. He also underwent lysis of adhesions for sma ll bowel obstruction. He remains intubated in the Intensive Care Unit. He remains hemodynamically s table, requiring no pressors. Today, he is significantly more alert. He makes eye contact and follo ws commands, squeezing the appropriate hand when instructed. It appears his encephalopathy is resolv ing. PHYSICAL EXAMINATION: VITAL SIGNS: He is afebrile with a current temperature of 98.6, pulse 75, blood pressure 140/49. GENERAL: As mentioned, he is significantly more alert. LUNGS: Clear to auscultation anteriorly. ABDOMEN: Soft. VAC is present in the midline. He has improved bowel sounds. He has improved colos wili output. His drain continues to drain opaque material, but it seems to be lower in volume. Ther e was only 82 mL out the drain yesterday. Cultures of this fluid are pending from yesterday. LABORATORY DATA: Revealed that his electrolytes are improved. He has been off TPN since yesterday. His sodium is now down to 148. His chloride is down from 120-114. His creatinine is improved from 1.7 to 1.5 today. On his CBC, his hemoglobin is stable at 8.4. ASSESSMENT AND PLAN: In summary, he continues to slowly improve. His mental function is definitely improved. His bowel function is better. I am still concerned about the drain output and I am uncert ain what to make of the opaque fluid, but since he seems to be clinically improving in all other aspe cts, I would recommend continued observation of this. I think that he would not well tolerate a repe at laparotomy.
--- NOTE | 2017-04-04 15:35 | PDOC.PN ---
- Subjective Encounter Start Date: 04/04/17 Encounter Start Time: 15:33 more alert follows simple commands still intubated - Objective MAR Reviewed: Yes Vital Signs & Weight: Vital Signs (12 hours) Temp Pulse Resp BP Pulse Ox 04/04/17 14:38 71 162/59 H 04/04/17 14:37 74 27 H 98 04/04/17 12:00 98.6 F 26 H 04/04/17 11:10 80 137/52 L 04/04/17 11:05 71 31 H 93 L 04/04/17 10:00 26 H 04/04/17 08:00 98.2 F 26 H 04/04/17 07:50 98.3 F 77 26 H 94 L 04/04/17 07:01 77 131/49 L 04/04/17 07:00 98.2 F 04/04/17 06:59 73 30 H 96 04/04/17 06:00 28 H 04/04/17 04:00 98.4 F 04/04/17 03:34 25 H Weight Admit Weight 211 lb Weight 206 lb 9.17 oz Most Recent Monitor Data Heart Rate from ECG 73 NIBP 140/49 NIBP BP-Mean 92 Respiration from ECG 33 SpO2 94 I&O: 04/03/17 04/04/17 04/05/17 06:59 06:59 06:59 Intake Total 4310.3 3780.2 130 Output Total 6250 3197 860 Balance -1939.7 583.2 -730 Result Diagrams: 04/04/17 04:00 04/04/17 04:00 Additional Labs: Accuchecks 04/04/17 04/04/17 04/04/17 13:13 08:59 03:51 POC Glucose 182 H 203 H 176 H 04/04/17 04/03/17 04/03/17 00:18 20:02 16:39 POC Glucose 131 H 115 H 206 H Phys Exam - Physical Examination intubated HEENT: PERRLA Neck: no JVD coarse bs Cardiovascular: RRR Gastrointestinal: soft colostomy with stool, drain has opaque material, sluggish bs Musculoskeletal: pulses present Neurological: moves all 4 limbs Psychiatric: normal affect Deviation from normal: alert Dx/Plan (1) Acute hypoxemic respiratory failure Code(s): J96.01 - ACUTE RESPIRATORY FAILURE WITH HYPOXIA Status: Acute (2) Septic shock Code(s): A41.9 - SEPSIS, UNSPECIFIED ORGANISM; R65.21 - SEVERE SEPSIS WITH SEPTIC SHOCK Status: Acute (3) CAP (community acquired pneumonia) Code(s): J18.9 - PNEUMONIA, UNSPECIFIED ORGANISM Status: Acute (4) Peritonitis Code(s): K65.9 - PERITONITIS, UNSPECIFIED Status: Acute Comment: due to gangrenous colitis-s/p sigmoid resection with colostomy (5) Acute blood loss anemia Code(s): D62 - ACUTE POSTHEMORRHAGIC ANEMIA Status: Acute (6) ARF (acute renal failure) Status: Acute (7) Metabolic encephalopathy Code(s): G93.41 - METABOLIC ENCEPHALOPATHY Status: Resolved - Plan * continue current care * f/u surg and nursing scheduler plan
--- NOTE | 2017-04-04 16:59 | PRG ---
DATE OF SERVICE: 04/04/2017 SERVICE: Pulmonary Medicine. INTERVAL HISTORY: The patient continues to have persistent abdominal distention and discomfort. Thi s is the thing that preventing us from reliably extubating him. He remains on pressure support venti lation. He is on a little bit of dexmedetomidine and otherwise is fairly comfortable. PHYSICAL EXAMINATION: VITAL SIGNS: Afebrile, pulse 71, blood pressure 162/59, respirations 27, saturation 98% on 23% FiO2 and PEEP of 5. GENERAL: The patient is intubated and under the influence of some sedation. HEENT: Normocephalic, atraumatic. Sclerae are white, conjunctivae pink. Oral and nasal mucosa is m oist without lesions. LUNGS: Decent air entry. Rhonchi and crackles are present. HEART: Normal rate, regular. ABDOMEN: Soft. Distended. Bowel sounds are hypoactive. GENITOURINARY: Mandel catheter in place. NEUROLOGIC: Grossly nonfocal. LABORATORY DATA: WBC 10.9, hemoglobin 8.4, platelets 186,000. Band count is once again increasing. INR 1.3. Creatinine 1.55 and gently downtrending, BUN 49. Sodium is 148 and stable. Basic metabol ic profile is otherwise unremarkable. C. diff antigen and toxin was previously negative. The abdomi nal fluid was cultured and there was moderate gram positive cocci in clusters and few gram positive r ods. This is a very cloudy fluid. ASSESSMENT: 1. Acute hypoxic respiratory failure. 2. Septic shock. 3. Community-acquired pneumonia. 4. Gross peritonitis secondary to perforated viscus. 5. Metabolic encephalopathy. 6. Acute blood loss anemia. 7. Acute kidney injury. PLAN: We will continue to diurese the patient to euvolemia. We may need to increase his free water along the way. His abdominal distention is slightly better today, but his white blood cell count and other inflammatory markers are starting to get worse. I am concerned about a recurrent inflammatory belly condition. He had a small amount of output from his ostomy. We will continue to watch this w hile we support him. I cannot extubate him until his belly issue is resolved. Tracheostomy may need to be considered in the next 2-3 days. Critical care time: 30 minutes.
[2017-04-04] MEDS ORDERED: POTASSIUM PHOSPHATE IV SCH ×9 (22:00)
[2017-04-04] MEDS ORDERED: [UNRECOGNIZED DRUG - OTHER] IV SCH ×9 (22:00)
[2017-04-04] MEDS ORDERED: SODIUM ACETATE IV SCH ×9 (22:00)
[2017-04-04] MEDS ORDERED: POTASSIUM ACETATE IV SCH ×9 (22:00)
[2017-04-05] MEDS: HumaLOG 300 UNITS/3 ML VIAL SC PRN ×5 (00:14→20:42)
[2017-04-05] MEDS: Morphine 4 MG/ML VIAL SLOW IVP PRN ×4 (00:47→21:00)
[2017-04-05 04:37] LABS: #Lymphocytes 1.3 thou/uL (1.20-3.40); #Monocytes 0.5 thou/uL (0.11-0.59); #Neutrophils 7.7 thou/uL (1.40-6.50); %Basophils 0.2 % (0.0-1.0); %Eosinophils 0.2 % (0.0-10.0); %Lymphocytes 13.2 % (21.0-51.0); %Monocytes 5.4 % (0.0-10.0); Mean Platelet Volume 10.3 fL (7.4-10.4); Red Blood Cell (RBC) Count 2.39 mill/uL (4.70-6.10); White Blood Cell (WBC) Count 9.5 thou/uL (4.8-10.8)
[2017-04-05 04:47] LABS: PTT 29.8 SEC (22.9-36.1); Prothrombin Time 16.5 SEC (12.0-14.7)
[2017-04-05 05:07] LABS: Anion Gap 12 mmol/L (10-20); BUN (Urea Nitrogen) 45 mg/dL (8.4-25.7); Calc. Creatinine Clearance 66 mL/min (70-130); Calcium 7.2 mg/dL (7.8-10.44); Carbon Dioxide 23 mmol/L (23-31); Chloride 116 mmol/L (98-107); Cholesterol 93 mg/dl (< 200 Desired); Estimated GFR-MDRD 54; LDL Cholesterol, Calculated 37 mg/dL; Magnesium 1.5 mg/dL (1.6-2.6); Phosphorus 3.6 mg/dL (2.3-4.7)
[2017-04-05] MEDS: Furosemide 40 MG/4 ML VIAL SLOW IVP SCH (05:14)
[2017-04-05] MEDS: Piperacillin/Tazobactam 3.375 GM in Sodium Chloride 0.9% 100 ML IVPB SCH ×3 (05:20→21:03)
[2017-04-05] MEDS: Potassium Chloride 40 MEQ in Premix Bag 1 BAG IVPB PRN (05:26)
[2017-04-05] MEDS: hydrALAZINE 20 MG/ML VIAL SLOW IVP PRN ×2 (05:34→20:57)
[2017-04-05 09:18] LABS: Oxyhemoglobin 92.6 % (94.0-97.0); Sodium 150 mmol/L (135-148)
[2017-04-05 09:20] LABS: Mode CPAP; Modified Allen's Test POSITIVE; Pressure Support 5 cmH2O; Vent YES
[2017-04-05] MEDS: Insulin Detemir 100 UNITS/ML 10 UNITS in Pre-Filled Syringe 1 EACH SC SCH ×2 (10:18→20:37)
[2017-04-05] MEDS: Famotidine/PF 20 mg/2ml Vial IVPB SCH ×2 (10:20→20:36)
[2017-04-05] MEDS: Aspirin 300 MG Suppository PR SCH (10:20)
[2017-04-05] MEDS: Senokot S 8.6-50 MG TAB PO SCH ×2 (10:20→20:37)
--- NOTE | 2017-04-05 10:22 | PRG ---
DATE OF SERVICE: 04/05/2017 SERVICE: Pulmonary Medicine. INTERVAL HISTORY: The patient is doing fairly well this morning. His bowel is actually improving a little bit. It is much softer. He still has significant discomfort with palpation however. He reid ot provide any additional elements of the history because he is under the influence of a little bit o f sedation. He has been on pressure support ventilation and breathing comfortably. We have repeated an ABG this morning. It seems that he is hyperventilating as he has developed a respiratory alkalos is. There were no other overnight events otherwise. He is putting some stuff out of the ostomy. PHYSICAL EXAMINATION: VITAL SIGNS: Afebrile, pulse 74, blood pressure 177/59, respirations 38, saturation 95% on room air. GENERAL: The patient is awake and alert, but little somnolent. LUNGS: He has decent air entry. Dependent crackles are minimal. He has rhonchi in the right lung. HEART: Normal rate, regular. ABDOMEN: Soft. Tender to palpation throughout. There is minimal rebound. No guarding is present t tia. Bowel sounds are hypoactive. GENITOURINARY: Mandel catheter in place. NEUROLOGIC: Grossly nonfocal. LABORATORY DATA: WBC 9.5, hemoglobin 8.4, platelets 197,000. Neutrophil count is roughly stable at 81%. PH 7.51, pCO2 of 32, pO2 61 on 25% FiO2 at that time. Sodium 148, potassium 2.9. Creatinine 1 .3 and gently down trending. Glucose 212, phosphorus 3.6, magnesium 1.5. All cultures are negative since 03/20/2017. ASSESSMENT: 1. Acute hypoxic respiratory failure, improving. 2. Septic shock. 3. Community-acquired pneumonia. 4. Gross peritonitis secondary to perforated viscus. 5. Metabolic encephalopathy. 6. Acute blood loss anemia. 7. Acute kidney injury. PLAN: We will need to bump up his free water. I will replace his potassium and magnesium through . We will continue to diurese him on once daily basis. I am going to put him on a full spontan eous breathing trial with pressor support ventilation at 5/5. At the end of this, we will get an ABG . If it looks like he is doing okay, extubation will be considered. My fear is that he is too weak in order to clear his airway and cough. If that becomes an issue, our options moving forward are goi ng to transitioning over to comfort care only versus reintubation and primary tracheostomy as this wi ll be the second time he failed extubation. Critical care time: 30 minutes.
[2017-04-05] MEDS: Micafungin 100 MG in Sodium Chloride 0.9% 100 ML IVPB SCH (10:26)
[2017-04-05] MEDS: Potassium Chloride 40 MEQ in Premix Bag 1 BAG IVPB SCH ×2 (10:49→15:21)
--- NOTE | 2017-04-05 12:40 | PDOC.PN ---
- Subjective Encounter Start Date: 04/05/17 Encounter Start Time: 12:38 doing fairly well . bowel distention improving. little sedated.breathing comfortably - Objective MAR Reviewed: Yes Vital Signs & Weight: Vital Signs (12 hours) Temp Pulse Resp BP Pulse Ox 04/05/17 11:25 100 04/05/17 10:38 84 30 H 95 04/05/17 08:00 98.7 F 84 30 H 98 04/05/17 06:40 82 176/57 H 04/05/17 06:00 32 H 04/05/17 05:34 64 190/60 H 04/05/17 05:00 98.5 F 04/05/17 04:00 31 H 04/05/17 03:00 98.3 F 04/05/17 02:53 64 169/55 H 04/05/17 02:00 98.2 F 25 H 04/05/17 01:00 98.4 F Weight Admit Weight 211 lb Weight 204 lb 5.896 oz Most Recent Monitor Data Heart Rate from ECG 89 NIBP 188/67 NIBP BP-Mean 113 Respiration from ECG 33 SpO2 98 I&O: 04/04/17 04/05/17 04/06/17 06:59 06:59 06:59 Intake Total 3780.2 2990.5 300 Output Total 3197 3404 1105 Balance 583.2 -413.5 -805 Result Diagrams: 04/05/17 04:00 04/05/17 04:00 Additional Labs: Accuchecks 04/05/17 04/05/17 04/04/17 10:57 00:09 20:10 POC Glucose 270 H 208 H 159 H 04/04/17 04/04/17 15:50 13:13 POC Glucose 170 H 182 H Phys Exam - Physical Examination Constitutional: NAD HEENT: PERRLA Neck: no JVD rhonchi present Cardiovascular: RRR Gastrointestinal: soft tender to palpate Musculoskeletal: pulses present Neurological: moves all 4 limbs Dx/Plan (1) Acute hypoxemic respiratory failure Code(s): J96.01 - ACUTE RESPIRATORY FAILURE WITH HYPOXIA Status: Acute (2) Septic shock Code(s): A41.9 - SEPSIS, UNSPECIFIED ORGANISM; R65.21 - SEVERE SEPSIS WITH SEPTIC SHOCK Status: Acute (3) CAP (community acquired pneumonia) Code(s): J18.9 - PNEUMONIA, UNSPECIFIED ORGANISM Status: Acute (4) Peritonitis Code(s): K65.9 - PERITONITIS, UNSPECIFIED Status: Acute Comment: due to gangrenous colitis-s/p sigmoid resection with colostomy (5) Acute blood loss anemia Code(s): D62 - ACUTE POSTHEMORRHAGIC ANEMIA Status: Acute (6) ARF (acute renal failure) Status: Acute (7) Metabolic encephalopathy Code(s): G93.41 - METABOLIC ENCEPHALOPATHY Status: Resolved (8) Physical deconditioning Code(s): R53.81 - OTHER MALAISE Status: Acute - Plan * continue current care * f/u pulmonary plan * f/u surg plan
[2017-04-05] MEDS: Dextrose 5% in Water 1,000 ML IV SCH ×2 (15:28→20:46)
--- NOTE | 2017-04-05 21:46 | PRG ---
DATE OF SERVICE: 04/05/2017 SUBJECTIVE: Mr. Bennett is postoperative day #8 from laparotomy for a perforated gangrenous colon. He underwent extended left hemicolectomy with colostomy formation and lysis of adhesions for small dilma l obstruction. He has been in the Intensive Care Unit since the surgery. He has been off pressors f or several days. He has become gradually more alert. Earlier today, he was extubated. He was recen tly placed on BiPAP and appears to have some degree of respiratory effort for which is possible that he may need to be reintubated. I am told that he was conversing earlier, although he cannot with his current BiPAP on. He is smiling and nods appropriately though one told he is confused. He has been receiving tube feeds and I am told his residuals are essentially none. He is still on TPN, but he i s also getting some supplemental IV fluids secondary to electrolyte disorders. OBJECTIVE: VITAL SIGNS: He is afebrile. Pulse is 90 and blood pressure is 174/65. His urine output yesterday was 2700. He has been diuresing clear fluid all day today. ABDOMEN: He has liquid stool per his colostomy. His drain has been draining very much (about 14 mL yesterday), but it appears to be a greenish purulent appearing fluid. It does not appear to be enter ic. LUNGS: Somewhat course right now. He is not coughing well. ABDOMEN: Nontender, midline VAC dressing is in place. Ostomy output appears to be appropriate. Izabel in is examined as mentioned it appears to be a purulent appearing fluid. Bowel sounds are diff icult to appreciate secondary to his breathing currently. LABORATORY STUDIES: His hemoglobin is is stable simproved at 8.4. White blood cell count is 10.9. Chemistry profile reveals sodium is elevated at 148, potassium is low at 2.9, chloride is elevated at 116. Creatinine is normal at 1.3. Blood sugars are elevated between 212 and 290. His prealbumin i s somewhat improved at 9.0. ASSESSMENT AND PLAN: He appears to be making slow, but definite progress day by day. Although, he w as somewhat confused, he is clearly more alert and appears to be waking up appropriately. I suspect he therefore has a metabolic encephalopathy that is slowly resolving. For now, I would recommend con tinuing to slowly advance his tube feeds as he tolerates. I will turn up to 30 mL per hour currently . TPN will need to be adjusted to account for his electrolyte abnormalities. His ventilatory status will be according to his pulmonary consultants. His recent cultures from his drain fluid showed pse udomonas. It was a rare; however. We will see what sensitivity show symmetric. For now, we will co ntinue taking Zosyn and micafungin.
[2017-04-05] MEDS ORDERED: SODIUM ACETATE IV SCH ×9 (22:00)
[2017-04-05] MEDS ORDERED: POTASSIUM PHOSPHATE IV SCH ×9 (22:00)
[2017-04-05] MEDS ORDERED: [UNRECOGNIZED DRUG - OTHER] IV SCH ×9 (22:00)
[2017-04-05] MEDS ORDERED: POTASSIUM ACETATE IV SCH ×9 (22:00)
[2017-04-05] MEDS: CALCIUM GLUCONATE IV SCH ×8 (22:26)
[2017-04-05] MEDS: [UNRECOGNIZED DRUG - OTHER] IV SCH ×8 (22:26)
[2017-04-05] MEDS: POTASSIUM ACETATE IV SCH ×8 (22:26)
[2017-04-05] MEDS: POTASSIUM PHOSPHATE IV SCH ×8 (22:26)
[2017-04-06] MEDS: HumaLOG 300 UNITS/3 ML VIAL SC PRN ×5 (00:23→22:04)
[2017-04-06] MEDS: Morphine 4 MG/ML VIAL SLOW IVP PRN ×3 (01:21→14:11)
[2017-04-06 04:27] LABS: Anion Gap 5 mmol/L (10-20); BUN (Urea Nitrogen) 39 mg/dL (8.4-25.7); Calc. Creatinine Clearance 78 mL/min (70-130); Calcium 7.7 mg/dL (7.8-10.44); Carbon Dioxide 30 mmol/L (23-31); Chloride 115 mmol/L (98-107); Cholesterol 103 mg/dl (< 200 Desired); Estimated GFR-MDRD 65; LDL Cholesterol, Calculated 45 mg/dL; Magnesium 1.8 mg/dL (1.6-2.6); Phosphorus 3.1 mg/dL (2.3-4.7)
[2017-04-06] MEDS: Potassium Chloride 40 MEQ in Premix Bag 1 BAG IVPB PRN (04:36)
[2017-04-06 04:39] LABS: #Lymphocytes 1.2 thou/uL (1.20-3.40); #Monocytes 0.5 thou/uL (0.11-0.59); #Neutrophils 8.5 thou/uL (1.40-6.50); %Basophils 0.1 % (0.0-1.0); %Eosinophils 0.3 % (0.0-10.0); %Lymphocytes 11.9 % (21.0-51.0); %Monocytes 4.7 % (0.0-10.0); Anisocytosis SLIGHT = 6-15 cells (100X) (0-5/hpf); Hematocrit 26.2 % (42.0-52.0); Polychromasia SLIGHT = 2-3 cells (100X) (0-2/hpf); Red Blood Cell (RBC) Count 2.48 mill/uL (4.70-6.10); White Blood Cell (WBC) Count 10.3 thou/uL (4.8-10.8)
[2017-04-06] MEDS: hydrALAZINE 20 MG/ML VIAL SLOW IVP PRN (05:18)
[2017-04-06] MEDS: Furosemide 40 MG/4 ML VIAL SLOW IVP SCH (05:19)
[2017-04-06] MEDS: Piperacillin/Tazobactam 3.375 GM in Sodium Chloride 0.9% 100 ML IVPB SCH ×3 (05:20→22:14)
[2017-04-06 06:12] LABS: Prothrombin Time 15.6 SEC (12.0-14.7)
[2017-04-06 06:19] LABS: PTT 22.1 SEC (22.9-36.1)
--- NOTE | 2017-04-06 08:18 | RAD ---
AP VIEW CHEST: HISTORY: Status post intubation. FINDINGS: AP view chest was obtained on 04/06/17. Comparison is made to previous exam from 04/02/17. FINDINGS: AP view chest demonstrates a left jugular central line, distal tip definitively not seen. The patien t has a nasogastric tube, again distal tip not definitively seen. The patient appears to be extubate d. A right-sided pleural effusion is seen. IMPRESSION: 1. Interval extubation of the patient. 2. Right-sided pleural effusion. POS: OFF
[2017-04-06] MEDS ORDERED: Aspirin 325 MG TAB PER TUBE SCH ×2 (10:00)
[2017-04-06] MEDS: Micafungin 100 MG in Sodium Chloride 0.9% 100 ML IVPB SCH (10:11)
[2017-04-06] MEDS: Famotidine/PF 20 mg/2ml Vial IVPB SCH ×2 (10:11→21:50)
[2017-04-06] MEDS: Insulin Detemir 100 UNITS/ML 10 UNITS in Pre-Filled Syringe 1 EACH SC SCH (10:12)
[2017-04-06] MEDS: Senokot S 8.6-50 MG TAB PO SCH ×2 (10:12→21:50)
[2017-04-06] MEDS ORDERED: Insulin Detemir 100 UNITS/ML 15 UNITS in Pre-Filled Syringe 1 EACH SC SCH ×4 (10:44)
[2017-04-06] MEDS ORDERED: Potassium Chloride 40 MEQ in Premix Bag 1 BAG IVPB SCH (11:00)
--- NOTE | 2017-04-06 11:14 | PRG ---
DATE OF SERVICE: 04/06/2017 SERVICE: Pulmonary Medicine. INTERVAL HISTORY: The patient is doing okay from a respiratory standpoint. He required BiPAP last n ight. This morning, he is tolerating a break from it. During the wound VAC change, he is actually d oing quite well. He is giving a smile and he is much more alert. He attends. He is following all d irections. His cough is a little bit stronger today, but he does have more rhonchi. PHYSICAL EXAMINATION: VITAL SIGNS: Afebrile, pulse 88, blood pressure 150/55, respirations 32, saturation 94% on room air. GENERAL: Patient is awake, alert, no apparent distress. LUNGS: There is decent air entry with no prolonged expiratory phase. Rhonchi predominate and are wo rse on the right. No wheezing or crackles are appreciated. HEART: Normal rate, regular. ABDOMEN: Soft. A little bit of tenderness to palpation, but there is less rebound today. Bowel jeanne nds are hypoactive. GENITOURINARY: Mandel catheter in place. NEUROLOGIC: Grossly nonfocal. LABORATORY DATA: WBC 10.3, hemoglobin 8.2, platelets 211,000. INR 1.2. Sodium 147 and potassium 3. 4. Magnesium 1.8, phosphorus is normal. Basic metabolic profile is otherwise unremarkable. BUN and creatinine are stable and slightly improving. Bicarbonate 30 and has bumped up significantly compar ed to yesterday. Chloride stable. Abdominal fluid is growing Pseudomonas aeruginosa which is essent ially pansensitive. Otherwise, C. diff, and all culture results are negative to date. IMAGING: Chest x-ray demonstrates interval extubation. Right-sided pleural effusion is still presen t. This is about stable. Left-sided IJ central venous catheter is apparently in place. ASSESSMENT: 1. Acute hypoxic respiratory failure, stable. 2. Septic shock, improving. 3. Community-acquired pneumonia. 4. Gross peritonitis secondary to perforated viscus. 5. Metabolic encephalopathy, improving. 6. Acute blood loss anemia. 7. Acute kidney injury. PLAN: We will work on getting the patient into a neuro chair. We will get him working with physical therapy. Respiratory therapy will come by at least twice a day and perform physiotherapy in order t o help mobilize some secretions. Potassium will be replaced. Magnesium is currently 1.8 and this al so be replaced. We will watch him very closely and if he decompensates, we will have to decide on wh ether or not to intubate him and trach him versus transitioning over to comfort care only.
--- NOTE | 2017-04-06 12:20 | PDOC.PN ---
- Subjective Encounter Start Date: 04/06/17 Encounter Start Time: 12:00 Subjective: Patient with recurrent SOB and back on Bipap right now. No other -: complaints. - Objective Resuscitation Status: Resuscitation Status DNR:Do Not Resuscitate MAR Reviewed: Yes Vital Signs & Weight: Vital Signs (12 hours) Temp Pulse Resp BP Pulse Ox 04/06/17 11:57 98.9 F 04/06/17 11:07 87 04/06/17 10:41 96 04/06/17 10:39 85 25 H 04/06/17 08:00 98.7 F 88 31 H 98 04/06/17 07:03 78 04/06/17 05:18 83 181/55 H 04/06/17 04:00 98.3 F 04/06/17 02:02 83 Weight Admit Weight 211 lb Weight 214 lb 4.629 oz Most Recent Monitor Data Heart Rate from ECG 88 NIBP 180/72 NIBP BP-Mean 80 Respiration from ECG 30 SpO2 100 I&O: 04/05/17 04/06/17 04/07/17 06:59 06:59 06:59 Intake Total 2990.5 3665 130 Output Total 3404 3585 1575 Balance -413.5 80 -1445 Result Diagrams: 04/06/17 03:55 04/06/17 03:55 Additional Labs: Accuchecks 04/06/17 04/06/17 04/06/17 10:54 03:51 00:21 POC Glucose 359 H 291 H 309 H 04/05/17 04/05/17 03/27/17 20:41 15:28 16:12 POC Glucose 319 H 289 H 113 H Phys Exam - Physical Examination mild resp distress on Bipap HEENT: moist MMs bilateral rales, decent air movement Cardiovascular: RRR Gastrointestinal: soft, positive bowel sounds distended Neurological: non-focal, moves all 4 limbs Psychiatric: normal affect, A&O x 3 Dx/Plan (1) Acute hypoxemic respiratory failure Code(s): J96.01 - ACUTE RESPIRATORY FAILURE WITH HYPOXIA Status: Acute Comment: Improving, extubated and needing intermittent Bipap 04/06 (2) Peritonitis Code(s): K65.9 - PERITONITIS, UNSPECIFIED Status: Acute Comment: due to gangrenous colitis-s/p sigmoid resection with colostomy (3) CAP (community acquired pneumonia) Code(s): J18.9 - PNEUMONIA, UNSPECIFIED ORGANISM Status: Acute (4) Septic shock Code(s): A41.9 - SEPSIS, UNSPECIFIED ORGANISM; R65.21 - SEVERE SEPSIS WITH SEPTIC SHOCK Status: Acute (5) Hemothorax Code(s): J94.2 - HEMOTHORAX Status: Resolved (6) ARF (acute renal failure) Status: Acute Comment: improved (7) Acute blood loss anemia Code(s): D62 - ACUTE POSTHEMORRHAGIC ANEMIA Status: Acute Comment: Stable (8) Physical deconditioning Code(s): R53.81 - OTHER MALAISE Status: Acute (9) Metabolic encephalopathy Code(s): G93.41 - METABOLIC ENCEPHALOPATHY Status: Resolved (10) CAD (coronary artery disease) Code(s): I25.10 - ATHSCL HEART DISEASE OF [place] CORONARY ARTERY W/O ANG PCTRS Status: Chronic (11) COPD (chronic obstructive pulmonary disease) Status: Chronic (12) DM2 (diabetes mellitus, type 2) Status: Chronic Qualifiers: Diabetes mellitus complication status: with circulatory complication (13) HLD (hyperlipidemia) Code(s): E78.5 - HYPERLIPIDEMIA, UNSPECIFIED Status: Chronic (14) HTN (hypertension) Code(s): I10 - ESSENTIAL (PRIMARY) HYPERTENSION Status: Chronic Qualifiers: Hypertension type: essential hypertension Qualified Code(s): I10 - Essential (primary) hypertension - Plan cont current plan of care, continue antibiotics * . - Discharge Day Encounter end time: 12:30
[2017-04-06] MEDS ORDERED: Furosemide 40 MG/4 ML VIAL SLOW IVP SCH (14:00)
[2017-04-06] MEDS: Dextrose 5% in Water 1,000 ML IV SCH (17:45)
[2017-04-06] MEDS: CALCIUM GLUCONATE IV SCH ×8 (21:58)
[2017-04-06] MEDS: POTASSIUM PHOSPHATE IV SCH ×8 (21:58)
[2017-04-06] MEDS: POTASSIUM ACETATE IV SCH ×8 (21:58)
[2017-04-06] MEDS: [UNRECOGNIZED DRUG - OTHER] IV SCH ×8 (21:58)
[2017-04-07] MEDS ORDERED: Dextrose 5% in Water 500 ML IV SCH (03:30)
[2017-04-07] MEDS: HumaLOG 300 UNITS/3 ML VIAL SC PRN ×4 (04:09→21:07)
[2017-04-07 04:40] LABS: PTT 31.2 SEC (22.9-36.1); Prothrombin Time 16.1 SEC (12.0-14.7)
[2017-04-07 04:43] LABS: #Lymphocytes 1.1 thou/uL (1.20-3.40); #Monocytes 0.5 thou/uL (0.11-0.59); #Neutrophils 8.9 thou/uL (1.40-6.50); %Basophils 0.4 % (0.0-1.0); %Eosinophils 0.3 % (0.0-10.0); %Lymphocytes 10.6 % (21.0-51.0); %Monocytes 4.8 % (0.0-10.0); Hematocrit 26.5 % (42.0-52.0); Mean Platelet Volume 10.4 fL (7.4-10.4); Red Blood Cell (RBC) Count 2.48 mill/uL (4.70-6.10); White Blood Cell (WBC) Count 10.6 thou/uL (4.8-10.8)
[2017-04-07] MEDS: Furosemide 40 MG/4 ML VIAL SLOW IVP SCH (05:31)
[2017-04-07] MEDS: Piperacillin/Tazobactam 3.375 GM in Sodium Chloride 0.9% 100 ML IVPB SCH ×3 (05:31→21:09)
[2017-04-07 05:32] LABS: Anion Gap 10 mmol/L (10-20); BUN (Urea Nitrogen) 43 mg/dL (8.4-25.7); Calc. Creatinine Clearance 79 mL/min (70-130); Calcium 7.9 mg/dL (7.8-10.44); Carbon Dioxide 26 mmol/L (23-31); Chloride 111 mmol/L (98-107); Estimated GFR-MDRD 62; Magnesium 1.8 mg/dL (1.6-2.6); Phosphorus 2.9 mg/dL (2.3-4.7)
--- NOTE | 2017-04-07 08:37 | PRG ---
DATE OF SERVICE: 04/07/2017 SERVICE: Pulmonary Medicine. INTERVAL HISTORY: The patient is doing okay from a respiratory standpoint. He is kind of holding hi s own. He does having increasing congestion. His mentation was bad last night. He got confused and required restraints. He is doing slightly better now at this time when he is coming up. Otherwise, there has been no interval change to his condition. PHYSICAL EXAMINATION: VITAL SIGNS: Afebrile. Pulse 79, blood pressure 156/55, respirations 31, saturation 99% on 23% FiO2 via BiPAP. On room air 2 liters, he drops to saturation 92%. HEENT: Normocephalic, atraumatic. Sclerae are white, conjunctivae pink. Oral mucosa was extraordin arily dry. LUNGS: Great air entry. There is no prolonged expiratory phase, but rhonchi are present throughout. I do not appreciate any crackles or wheezing. HEART: Normal rate, regular. ABDOMEN: Soft. Tenderness to palpation throughout. There is a little bit of rebound or guarding, b ut he does have grimace wherever you touch him. Bowel sounds are quite active. MUSCULOSKELETAL: No cyanosis or clubbing. 2+ pitting persist. GENITOURINARY: Mandel catheter in place. NEUROLOGIC: Grossly nonfocal. LABORATORY DATA: WBC 10.6, hemoglobin 8.1, platelets 253,000. INR 1.3. Basic metabolic profile is fairly unremarkable. BUN is taking up a touch. Creatinine remains stable. Sodium 143 and trending downward, chloride 111, which is also improved. Magnesium and phosphorus fall within normal limits. Prealbumin is quite low. Blood sugars are in the 300s. Abdominal fluid is growing Pseudomonas, whi ch is fairly sensitive. ASSESSMENT: 1. Acute hypoxic respiratory failure. 2. Septic shock, resolving. 3. Community-acquired pneumonia. 4. Gross peritonitis secondary to perforated viscus. 5. Metabolic encephalopathy. 6. Acute blood loss anemia. 7. Acute kidney injury, resolved. PLAN: We will continue working on physiotherapy, and mobilizing the patient as much as he can possib ly tolerate. After discussions with the family, the patient has been made DNI/DNR. That being said, we are going to be as aggressive as possible in order to prevent us from having transitioned over to comfort care. Hopefully, we can get him through this very difficult illness, but there is a distinc t possibility that he will be passing away during this hospital stay. We will give him a dose of mag nesium. Hopefully, TPN will be able to be interrupted today. D5 water will be dropped to 50 mL per hour.
[2017-04-07] MEDS ORDERED: Magnesium 2 GM/NS 0.9% 50 ML 2 GM in Premix Bag 1 BAG IVPB SCH (09:00)
[2017-04-07] MEDS ORDERED: Magnesium Sulfate 2 GM in Sodium Chloride 0.9% 100 ML IVPB SCH (09:00)
[2017-04-07] MEDS: Dextrose 5% in Water 500 ML IV SCH ×2 (09:18→18:05)
[2017-04-07] MEDS: Famotidine/PF 20 mg/2ml Vial IVPB SCH ×2 (09:19→21:03)
[2017-04-07] MEDS: Aspirin 325 MG TAB PER TUBE SCH (09:19)
[2017-04-07] MEDS: Senokot S 8.6-50 MG TAB PO SCH ×2 (09:19→21:10)
[2017-04-07] MEDS: Ascorbic Acid 500 mg Chewable Tablet PO SCH (09:19)
[2017-04-07] MEDS: Insulin Detemir 100 UNITS/ML 20 UNITS in Pre-Filled Syringe 1 EACH SC SCH ×2 (10:19→21:05)
[2017-04-07] MEDS: Dextrose 5% in Water 1,000 ML IV SCH (10:32)
[2017-04-07] MEDS: Micafungin 100 MG in Sodium Chloride 0.9% 100 ML IVPB SCH (12:19)
--- NOTE | 2017-04-07 12:32 | PDOC.PN ---
- Subjective Encounter Start Date: 04/07/17 Encounter Start Time: 12:45 Subjective: Patient still requiring BiPAP. Lots of secretions. Continued confusion. -: Patinent and family changed him to DNR. - Objective Resuscitation Status: Resuscitation Status DNR:Do Not Resuscitate MAR Reviewed: Yes Vital Signs & Weight: Vital Signs (12 hours) Temp Pulse Resp Pulse Ox 04/07/17 12:00 98.7 F 04/07/17 10:43 79 04/07/17 08:00 99.1 F 04/07/17 07:02 79 04/07/17 04:00 98.5 F 04/07/17 03:04 76 04/07/17 03:03 77 25 H 99 Weight Admit Weight 211 lb Weight 205 lb 0.478 oz Most Recent Monitor Data Heart Rate from ECG 83 NIBP 165/47 NIBP BP-Mean 105 Respiration from ECG 27 SpO2 96 I&O: 04/06/17 04/07/17 04/08/17 06:59 06:59 06:59 Intake Total 3665 4307 Output Total 3585 5405 1030 Balance 80 -1008 -1030 Result Diagrams: 04/07/17 04:00 04/07/17 04:00 Additional Labs: Accuchecks 04/07/17 04/07/17 04/06/17 10:21 04:04 22:03 POC Glucose 296 H 325 H 306 H 04/06/17 17:39 POC Glucose 338 H Phys Exam - Physical Examination mild resp distress HEENT: moist MMs lots of upper resp secreations, decreased breath sounds in bases Cardiovascular: RRR Gastrointestinal: positive bowel sounds TTP, distended black toes on left foot and great toe on right foot Deviation from normal: mild confusion, sleepy Dx/Plan (1) Acute hypoxemic respiratory failure Code(s): J96.01 - ACUTE RESPIRATORY FAILURE WITH HYPOXIA Status: Acute Comment: Improving, extubated and needing intermittent Bipap 04/06 (2) Peritonitis Code(s): K65.9 - PERITONITIS, UNSPECIFIED Status: Acute Comment: due to gangrenous colitis-s/p sigmoid resection with colostomy (3) CAP (community acquired pneumonia) Code(s): J18.9 - PNEUMONIA, UNSPECIFIED ORGANISM Status: Acute (4) Septic shock Code(s): A41.9 - SEPSIS, UNSPECIFIED ORGANISM; R65.21 - SEVERE SEPSIS WITH SEPTIC SHOCK Status: Acute (5) Hemothorax Code(s): J94.2 - HEMOTHORAX Status: Resolved (6) ARF (acute renal failure) Status: Acute Comment: improved (7) Acute blood loss anemia Code(s): D62 - ACUTE POSTHEMORRHAGIC ANEMIA Status: Acute Comment: Stable (8) Physical deconditioning Code(s): R53.81 - OTHER MALAISE Status: Acute (9) Metabolic encephalopathy Code(s): G93.41 - METABOLIC ENCEPHALOPATHY Status: Resolved (10) CAD (coronary artery disease) Code(s): I25.10 - ATHSCL HEART DISEASE OF [place] CORONARY ARTERY W/O ANG PCTRS Status: Chronic (11) COPD (chronic obstructive pulmonary disease) Status: Chronic (12) DM2 (diabetes mellitus, type 2) Status: Chronic Qualifiers: Diabetes mellitus complication status: with circulatory complication (13) HLD (hyperlipidemia) Code(s): E78.5 - HYPERLIPIDEMIA, UNSPECIFIED Status: Chronic (14) HTN (hypertension) Code(s): I10 - ESSENTIAL (PRIMARY) HYPERTENSION Status: Chronic Qualifiers: Hypertension type: essential hypertension Qualified Code(s): I10 - Essential (primary) hypertension - Plan cont current plan of care, continue antibiotics, respiratory therapy * . - Discharge Day Encounter end time: 13:15
[2017-04-07] MEDS: Aspirin 300 MG Suppository PR SCH (13:21)
[2017-04-07] MEDS: Morphine 4 MG/ML VIAL SLOW IVP PRN (17:14)
[2017-04-08] MEDS: Dextrose 5% in Water 500 ML IV SCH ×2 (02:07→13:45)
[2017-04-08] MEDS: HumaLOG 300 UNITS/3 ML VIAL SC PRN ×2 (04:46→09:13)
[2017-04-08 05:21] LABS: Prothrombin Time 15.7 SEC (12.0-14.7)
[2017-04-08] MEDS: Furosemide 40 MG/4 ML VIAL SLOW IVP SCH (05:24)
[2017-04-08] MEDS: Piperacillin/Tazobactam 3.375 GM in Sodium Chloride 0.9% 100 ML IVPB SCH ×3 (05:25→21:30)
[2017-04-08 05:26] LABS: PTT 33.5 SEC (22.9-36.1)
[2017-04-08 05:40] LABS: Anion Gap 10 mmol/L (10-20); BUN (Urea Nitrogen) 38 mg/dL (8.4-25.7); Calc. Creatinine Clearance 91 mL/min (70-130); Calcium 7.7 mg/dL (7.8-10.44); Carbon Dioxide 26 mmol/L (23-31); Chloride 113 mmol/L (98-107); Estimated GFR-MDRD 78; Phosphorus 3.1 mg/dL (2.3-4.7)
[2017-04-08 06:24] LABS: #Eosinphils 0.1 thou/uL (0.0-0.7); #Lymphocytes 1.5 thou/uL (1.20-3.40); #Monocytes 0.6 thou/uL (0.11-0.59); #Neutrophils 7.8 thou/uL (1.40-6.50); %Basophils 0.2 % (0.0-1.0); %Eosinophils 0.5 % (0.0-10.0); %Lymphocytes 14.9 % (21.0-51.0); %Monocytes 5.8 % (0.0-10.0); Hematocrit 26.2 % (42.0-52.0); Mean Platelet Volume 10.2 fL (7.4-10.4); Red Blood Cell (RBC) Count 2.46 mill/uL (4.70-6.10)
[2017-04-08] MEDS: Morphine 4 MG/ML VIAL SLOW IVP PRN ×3 (07:47→22:30)
[2017-04-08] MEDS: Senokot S 8.6-50 MG TAB PO SCH ×2 (07:48→21:28)
[2017-04-08] MEDS: Famotidine/PF 20 mg/2ml Vial IVPB SCH ×2 (07:48→21:28)
[2017-04-08] MEDS: Aspirin 325 MG TAB PER TUBE SCH (07:48)
[2017-04-08] MEDS: Magnesium Oxide 400 MG TAB PO PRN ×2 (07:48→13:41)
[2017-04-08] MEDS: Ascorbic Acid 500 mg Chewable Tablet PO SCH (07:48)
[2017-04-08] MEDS: Insulin Detemir 100 UNITS/ML 20 UNITS in Pre-Filled Syringe 1 EACH SC SCH ×2 (09:10→21:27)
[2017-04-08] MEDS: Micafungin 100 MG in Sodium Chloride 0.9% 100 ML IVPB SCH (11:06)
--- NOTE | 2017-04-08 12:07 | PRG ---
DATE OF SERVICE: 04/08/2017 SERVICE: Pulmonary Medicine. INTERVAL HISTORY: The patient is doing well from a respiratory standpoint. He is working hard to [employer], but he is tolerating BiPAP break. He is able to sit up in a neuro chair 45 minutes today and actually sat on the side of the bed with physical therapy. His respirations are little less rattle t tia. Many of his metabolic derangements and infectious profile have improved significantly. He con tinues to make good output out of the ostomy. Unfortunately, the patient remains extraordinarily wea k. The medical issues are coming too close, but he may not make it through this because of the under lying debility and weakness. PHYSICAL EXAMINATION: VITAL SIGNS: Afebrile, pulse 83, blood pressure 128/56, respirations 25, saturation 99% on well [address] nasal cannula. GENERAL: Patient is awake, alert, no apparent distress. LUNGS: Decent air entry. There is a slightly prolonged expiratory phase. No rhonchi are appreciate d. HEART: Normal rate and regular. ABDOMEN: Soft. Tender to palpation, but there is no rebound today. Bowel sounds are active. GENITOURINARY: Mandel catheter in place. NEUROLOGIC: Grossly nonfocal. He demonstrates diffuse weakness. LABORATORY DATA: WBC 10.0, hemoglobin 8.0, platelets 279,000. INR 1.2. Basic metabolic profile is essentially unremarkable except for chloride that is up trending to 113 and sodium that picked upward to 145. Creatinine 0.95 and down trending. Bicarbonate is low at 26. Magnesium and phosphorus fal l within the normal limits. ASSESSMENT: 1. Acute hypoxic respiratory failure. 2. Septic shock, resolving. 3. Community-acquired pneumonia. 4. Gross peritonitis secondary to perforated viscus. 5. Metabolic encephalopathy, resolving. 6. Acute blood loss anemia. 7. Critical care weakness. PLAN: We will continue aggressive efforts at mobilizing the patient and physiotherapy. The patient does remain DNI/DNR, but we are doing everything possibly we can to get him through this event. Supp ortive care including antibiotics will be continued. I will back off on our interval of Lasix. The patient is approaching euvolemia and has no respiratory issues at this point. Pulmonary or Critical Care will continue to follow and he will remain in this location.
[2017-04-08] MEDS: Acetaminophen 650 MG/20.3 ML UDCUP PO PRN (12:10)
--- NOTE | 2017-04-08 15:46 | PDOC.PN ---
- Subjective Encounter Start Date: 04/08/17 Encounter Start Time: 11:00 Subjective: is on bipap, awake, not in distress - Objective Resuscitation Status: Resuscitation Status DNR:Do Not Resuscitate MAR Reviewed: Yes Vital Signs & Weight: Vital Signs (12 hours) Temp Pulse Pulse Resp BP BP BP 04/08/17 13:30 04/08/17 13:28 73 25 H 04/08/17 12:00 98.6 F 04/08/17 08:38 80 132/42 L 131/75 124/41 L 04/08/17 08:00 98.4 F 75 28 H 04/08/17 06:35 74 04/08/17 04:00 98.5 F 71 Pulse Ox Pulse Ox 04/08/17 13:30 100 04/08/17 13:28 04/08/17 12:00 04/08/17 08:38 100 04/08/17 08:00 98 04/08/17 06:35 04/08/17 04:00 Weight Admit Weight 211 lb Weight 199 lb 15.348 oz Most Recent Monitor Data Heart Rate from ECG 72 NIBP 133/46 NIBP BP-Mean 79 Respiration from ECG 27 SpO2 98 I&O: 04/07/17 04/08/17 04/09/17 06:59 06:59 06:59 Intake Total 4457 3163 Output Total 5405 3063 1810 Balance -948 100 -1810 Result Diagrams: 04/08/17 04:45 04/08/17 04:45 Additional Labs: Accuchecks 04/08/17 04/08/17 04/07/17 09:13 04:43 21:02 POC Glucose 188 H 191 H 180 H 04/07/17 16:07 POC Glucose 258 H Phys Exam - Physical Examination HEENT: PERRLA, sclera anicteric Neck: no JVD, supple Respiratory: no wheezing, no rales Cardiovascular: RRR, no significant murmur Gastrointestinal: soft, positive bowel sounds colostomy has stool, midline incision in wound vac Musculoskeletal: no edema, pulses present multiple toes have dry gangrene Neurological: non-focal, moves all 4 limbs Dx/Plan (1) Acute hypoxemic respiratory failure Code(s): J96.01 - ACUTE RESPIRATORY FAILURE WITH HYPOXIA Status: Acute Comment: Improving, extubated, on Bipap (2) CAP (community acquired pneumonia) Code(s): J18.9 - PNEUMONIA, UNSPECIFIED ORGANISM Status: Acute Qualifiers: Laterality: unspecified laterality Qualified Code(s): J18.9 - Pneumonia, unspecified organism (3) Peritonitis Code(s): K65.9 - PERITONITIS, UNSPECIFIED Status: Acute Comment: due to gangrenous colitis-s/p left hemicolectomy with colostomy (4) Physical deconditioning Code(s): R53.81 - OTHER MALAISE Status: Acute (5) Septic shock Code(s): A41.9 - SEPSIS, UNSPECIFIED ORGANISM; R65.21 - SEVERE SEPSIS WITH SEPTIC SHOCK Status: Acute (6) Metabolic encephalopathy Code(s): G93.41 - METABOLIC ENCEPHALOPATHY Status: Resolved (7) Benign enlargement of prostate Code(s): N40.0 - BENIGN PROSTATIC HYPERPLASIA WITHOUT LOWER URINRY TRACT SYMP Status: Chronic Qualifiers: Lower urinary tract symptom presence: unspecified whether lower urinary tract symptoms present Qualified Code(s): N40.0 - Benign prostatic hyperplasia without lower urinary tract symptoms (8) CAD (coronary artery disease) Code(s): I25.10 - ATHSCL HEART DISEASE OF [place] CORONARY ARTERY W/O ANG PCTRS Status: Chronic Qualifiers: Coronary Disease-Associated Artery/Lesion type: [place] artery [place] vs. transplanted heart: [place] heart Associated angina: without angina Qualified Code(s): I25.10 - Atherosclerotic heart disease of [place] coronary artery without angina pectoris (9) COPD (chronic obstructive pulmonary disease) Status: Chronic Qualifiers: COPD type: chronic bronchitis Chronic bronchitis type: unspecified Qualified Code(s): J42 - Unspecified chronic bronchitis (10) DM2 (diabetes mellitus, type 2) Status: Chronic Qualifiers: Diabetes mellitus complication status: with circulatory complication Diabetes mellitus mcfp insulin use: with mcfp use (11) HLD (hyperlipidemia) Code(s): E78.5 - HYPERLIPIDEMIA, UNSPECIFIED Status: Chronic Qualifiers: Hyperlipidemia type: unspecified Qualified Code(s): E78.5 - Hyperlipidemia , unspecified (12) HTN (hypertension) Code(s): I10 - ESSENTIAL (PRIMARY) HYPERTENSION Status: Chronic Qualifiers: Hypertension type: essential hypertension Qualified Code(s): I10 - Essential (primary) hypertension (13) PAD (peripheral artery disease) Code(s): I73.9 - PERIPHERAL VASCULAR DISEASE, UNSPECIFIED Status: Chronic (14) Acute blood loss anemia Code(s): D62 - ACUTE POSTHEMORRHAGIC ANEMIA Status: Acute Comment: Stable - Plan is on zosyn and micafungin -: d5w, watch for fingerstick glucose -: on lasix iv , levemir 20u bid -: severe deconditioning, needs PT to mobilize as tolerated -: prognosis guarded * . Review of Systems - Medications/Allergies Allergies/Adverse Reactions: Allergies Allergy/AdvReac Type Severity Reaction Status Date / Time No Known Allergies Allergy Verified 08/08/16 08:56 Medications: Current Medications Acetaminophen (Tylenol) 650 mg PA Q6H PRN PRN Reason: Fever > 101 or Mild Pain Last Admin: 03/24/17 00:13 Dose: 650 mg Acetaminophen (Tylenol Elixir) 650 mg PO Q6H PRN PRN Reason: Fever > 101 or Mild Pain Last Admin: 04/08/17 12:10 Dose: 650 mg Albuterol/Ipratropium (Duoneb) 3 ml NEB [id number] [facility] Last Admin: 04/08/17 13:28 Dose: 3 ml Albuterol/Ipratropium (Duoneb) 3 ml NEB [id number] PRN PRN Reason: SOB &/or Wheezing Ascorbic Acid (Vitamin C) 1,000 mg PO DAILY [facility] Last Admin: 04/08/17 07:48 Dose: 1,000 mg Aspirin (Aspirin) 325 mg PER TUBE DAILY [facility] Last Admin: 04/08/17 07:48 Dose: 325 mg Bisacodyl (Dulcolax) 10 mg PA DAILYPRN PRN PRN Reason: Constipation Last Admin: 03/25/17 08:44 Dose: 10 mg Dextrose/Water (Dextrose 50%) 25 gm SLOW IVP PRN PRN PRN Reason: Hypoglycemia Famotidine (Pepcid) 20 mg IVPB BID [facility] Last Admin: 04/08/17 07:48 Dose: 20 mg Furosemide (Lasix) 40 mg SLOW IVP 0600 [facility] Last Admin: 04/08/17 05:24 Dose: 40 mg Glucagon (Glucagon) 1 mg IM PRN PRN PRN Reason: Hypoglycemia Hydralazine HCl (Apresoline) 10 mg SLOW IVP Q6H PRN PRN Reason: FOR SBP > 180 Last Admin: 04/06/17 05:18 Dose: 10 mg Piperacillin Sod/Tazobactam (Sod 3.375 gm/ Sodium Chloride) 100 mls @ 200 mls/ hr IVPB Q8HR MIKE Last Admin: 04/08/17 13:41 Dose: 100 mls Potassium Chloride 40 meq/ (Sodium Chloride) 270 mls @ 135 mls/hr IVPB ASDIR PRN PRN Reason: FOR SERUM K+ 2.5 - 3.5 Last Admin: 03/25/17 10:55 Dose: 270 mls Potassium Chloride 40 meq/ (Device) 100 mls @ 50 mls/hr IVPB ASDIR PRN PRN Reason: FOR SERUM K+ 2.5 - 3.5 Last Admin: 04/06/17 04:36 Dose: 100 mls Magnesium Sulfate 1 gm/ Sodium (Chloride) 102 mls @ 102 mls/hr IV PRN PRN PRN Reason: MAG LEVEL 1.4 - 2.0 Last Admin: 04/05/17 10:50 Dose: 102 mls Magnesium Sulfate 2 gm/ Device 100 mls @ 100 mls/hr IVPB ASDIR PRN PRN Reason: MAGNESIUM < 1.4 Last Admin: 03/27/17 10:48 Dose: 100 mls Potassium Phosphate 9 mmol/ (Sodium Chloride) 103 mls @ 25.75 mls/hr IVPB ASDIR PRN PRN Reason: Phosphate 1.0-1.8 Last Admin: 04/01/17 06:14 Dose: 103 mls Potassium Phosphate 12 mmol/ (Sodium Chloride) 254 mls @ 63.5 mls/hr IV ASDIR PRN PRN Reason: Serum phosphate 0.5-0.9 Potassium Phosphate 15 mmol/ (Sodium Chloride) 255 mls @ 63.75 mls/hr IV ASDIR PRN PRN Reason: Serum Phos < 0.5 Micafungin Sodium 100 mg/ (Sodium Chloride) 100 mls @ 100 mls/hr IVPB 1100 MIKE Last Admin: 04/08/17 11:06 Dose: 100 mls Dextrose/Water (D5w) 1,000 mls @ 0 mls/hr IV .Q0M PRN; As Directed PRN Reason: Hypoglycemia Dextrose/Water (D5w) 500 mls @ 50 mls/hr IV .Q10H [facility] Last Admin: 04/08/17 13:45 Dose: 500 mls Insulin Detemir 20 units/ (Miscellaneous Medication) 0.2 mls @ 1 mls/hr SC HS [facility] Last Admin: 04/07/17 21:05 Dose: 0.2 mls Insulin Detemir 20 units/ (Miscellaneous Medication) 0.2 mls @ 0 mls/hr SC QAM [facility] Last Admin: 04/08/17 09:10 Dose: 0.2 mls Insulin Human Lispro (Humalog) 0 units SC .AGGRESSIVE SLIDING PRN PRN Reason: Aggressive Correctional Scale Last Admin: 04/08/17 09:13 Dose: 3 unit Magnesium Oxide (Magnesium Oxide) 400 mg PO BIDPRN PRN PRN Reason: FOR SERUM MAG 1.4 - 2.0 Last Admin: 04/08/17 13:41 Dose: 400 mg Magnesium Oxide (Magnesium Oxide) 800 mg PO PRN PRN PRN Reason: FOR SERUM MAG < 1.4 Miscellaneous Medication (Pharmacy To Dose) 1 each IVPB PRN PRN PRN Reason: Pharmacy to dose Miscellaneous Medication (Phos-Nak) 1 pkt PO TIDPRN PRN PRN Reason: FOR PHOS LEVEL 1.0 - 1.8 Miscellaneous Medication (Phos-Nak) 2 pkt PO TIDPRN PRN PRN Reason: FOR PHOS LEVEL 0.5 - 1.0 Morphine Sulfate (Morphine) 4 mg SLOW IVP Q2H PRN PRN Reason: Pain Last Admin: 04/08/17 15:02 Dose: 4 mg Ondansetron HCl (Zofran) 4 mg IVP Q6H PRN PRN Reason: Nausea/Vomiting Last Admin: 03/27/17 16:05 Dose: 4 mg Potassium Chloride (K-Dur) 40 meq PO ASDIR PRN PRN Reason: FOR SERUM K+ 2.5 - 3.5 Potassium Chloride (Klor-Con) 40 meq PER TUBE ASDIR PRN PRN Reason: FOR SERUM K+ 2.5-3.5 Senna/Docusate Sodium (Senokot S) 1 tab PO BID [facility] Last Admin: 04/08/17 07:48 Dose: 1 tab Sodium Chloride (Flush - Normal Saline) 10 ml IVF Q12HR [facility] Last Admin: 04/08/17 07:49 Dose: 10 ml Sodium Chloride (Flush - Normal Saline) 10 ml IVF PRN PRN PRN Reason: Saline Flush
[2017-04-08] MEDS: Ondansetron HCl/PF 4 MG/2 ML Vial IVP PRN (16:26)
[2017-04-09] MEDS: Dextrose 5% in Water 500 ML IV SCH ×3 (00:28→21:47)
[2017-04-09] MEDS: HumaLOG 300 UNITS/3 ML VIAL SC PRN ×2 (04:11→10:49)
[2017-04-09] MEDS: Furosemide 40 MG/4 ML VIAL SLOW IVP SCH (06:19)
[2017-04-09] MEDS: Piperacillin/Tazobactam 3.375 GM in Sodium Chloride 0.9% 100 ML IVPB SCH ×2 (06:19→14:32)
[2017-04-09] MEDS: Morphine 4 MG/ML VIAL SLOW IVP PRN ×3 (08:44→22:19)
[2017-04-09] MEDS: Aspirin 325 MG TAB PER TUBE SCH (09:16)
[2017-04-09] MEDS: Ascorbic Acid 500 mg Chewable Tablet PO SCH (09:16)
[2017-04-09] MEDS: Famotidine/PF 20 mg/2ml Vial IVPB SCH ×2 (09:16→21:20)
[2017-04-09] MEDS: Senokot S 8.6-50 MG TAB PO SCH ×2 (09:16→21:21)
[2017-04-09] MEDS: Insulin Detemir 100 UNITS/ML 20 UNITS in Pre-Filled Syringe 1 EACH SC SCH ×2 (09:32→21:26)
--- NOTE | 2017-04-09 11:23 | PRG ---
DATE OF SERVICE: 04/09/2017 The patient is postoperative day #12 from extended left hemicolectomy for a gangrenous colon with per foration and feculent peritonitis. He also had a bowel obstruction which was addressed with an enter otomy creation. He has clearly made some progress over the weekend. He remains extubated and today appears to be breathing much more comfortably. As I evaluate him he is not on any oxygen and his oxy gen saturations are 94% on room air. He is alert and interactive, and following instructions. He de nies any significant concerns. PHYSICAL EXAMINATION: VITAL SIGNS: He is afebrile, pulse 70-79, blood pressure is 134/44. LUNGS: Clear to auscultation. ABDOMEN: Benign. He still has a VAC on his midline abdominal wound. His ostomy has been putting ou t appropriate stool and it is viable. The BHASKAR drain is putting out purulent appearing material, but i t is low volume and yesterday it was only 8 mL. ASSESSMENT: He is clearly making progress. He is hemodynamically stable and afebrile. He is tolera ting tube feeds with good ostomy output. He is clearly very weak and debilitated. At this point, I believe it is appropriate to remove his nasogastric tube through which he is receiving his tube feeds and have a speech therapy evaluation. If he is safe to swallow, then I would like to advance his or al diet. If he is not, then we will probably need to replace a Dobbhoff tube for continued enteral f eedings. He continues on antibiotics, receiving Zosyn currently.
--- NOTE | 2017-04-09 11:52 | PDOC.PN ---
- Subjective Encounter Start Date: 04/09/17 Encounter Start Time: 10:50 Subjective: is awake, off bipap this am -: is trying to work with OT - Objective Resuscitation Status: Resuscitation Status DNR:Do Not Resuscitate MAR Reviewed: Yes Vital Signs & Weight: Vital Signs (12 hours) Temp Pulse Pulse Pulse Resp BP BP 04/09/17 08:24 71 72 106/40 L 134/44 L 04/09/17 07:01 70 04/09/17 06:59 70 21 H 04/09/17 04:00 98.4 F 04/09/17 02:35 71 04/09/17 02:34 04/09/17 00:00 98.7 F Pulse Ox Pulse Ox Pulse Ox 04/09/17 08:24 94 L 94 L 04/09/17 07:01 04/09/17 06:59 97 04/09/17 04:00 04/09/17 02:35 04/09/17 02:34 100 04/09/17 00:00 Weight Admit Weight 211 lb Weight 200 lb 9.93 oz Most Recent Monitor Data Heart Rate from ECG 70 NIBP 145/51 NIBP BP-Mean 71 Respiration from ECG 18 SpO2 96 I&O: 04/08/17 04/09/17 04/10/17 06:59 06:59 06:59 Intake Total 3163 2845 Output Total 3063 3095 Balance 100 -250 Result Diagrams: 04/08/17 04:45 04/08/17 04:45 Additional Labs: Accuchecks 04/09/17 04/09/17 04/08/17 10:28 04:01 21:24 POC Glucose 305 H 191 H 114 H 04/08/17 17:24 POC Glucose 118 H Phys Exam - Physical Examination HEENT: PERRLA, moist MMs Neck: no JVD, supple Respiratory: no wheezing, no rales rhonchi+ Cardiovascular: RRR, no significant murmur Gastrointestinal: soft, no distention, positive bowel sounds abd wound in wound vac Musculoskeletal: no edema has 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 Neurological: non-focal, moves all 4 limbs Dx/Plan (1) Acute hypoxemic respiratory failure Code(s): J96.01 - ACUTE RESPIRATORY FAILURE WITH HYPOXIA Status: Acute Comment: Improving, extubated, on Bipap prn (2) CAP (community acquired pneumonia) Code(s): J18.9 - PNEUMONIA, UNSPECIFIED ORGANISM Status: Acute Qualifiers: Laterality: unspecified laterality Qualified Code(s): J18.9 - Pneumonia, unspecified organism (3) Peritonitis Code(s): K65.9 - PERITONITIS, UNSPECIFIED Status: Acute Comment: due to gangrenous colitis-s/p left hemicolectomy with colostomy (4) Physical deconditioning Code(s): R53.81 - OTHER MALAISE Status: Acute (5) Septic shock Code(s): A41.9 - SEPSIS, UNSPECIFIED ORGANISM; R65.21 - SEVERE SEPSIS WITH SEPTIC SHOCK Status: Acute (6) Metabolic encephalopathy Code(s): G93.41 - METABOLIC ENCEPHALOPATHY Status: Resolved (7) Benign enlargement of prostate Code(s): N40.0 - BENIGN PROSTATIC HYPERPLASIA WITHOUT LOWER URINRY TRACT SYMP Status: Chronic Qualifiers: Lower urinary tract symptom presence: unspecified whether lower urinary tract symptoms present Qualified Code(s): N40.0 - Benign prostatic hyperplasia without lower urinary tract symptoms (8) CAD (coronary artery disease) Code(s): I25.10 - ATHSCL HEART DISEASE OF [place] CORONARY ARTERY W/O ANG PCTRS Status: Chronic Qualifiers: Coronary Disease-Associated Artery/Lesion type: [place] artery [place] vs. transplanted heart: [place] heart Associated angina: without angina Qualified Code(s): I25.10 - Atherosclerotic heart disease of [place] coronary artery without angina pectoris (9) COPD (chronic obstructive pulmonary disease) Status: Chronic Qualifiers: COPD type: chronic bronchitis Chronic bronchitis type: unspecified Qualified Code(s): J42 - Unspecified chronic bronchitis (10) DM2 (diabetes mellitus, type 2) Status: Chronic Qualifiers: Diabetes mellitus complication status: with circulatory complication Diabetes mellitus emt intermediate insulin use: with skilled nursing use (11) HLD (hyperlipidemia) Code(s): E78.5 - HYPERLIPIDEMIA, UNSPECIFIED Status: Chronic Qualifiers: Hyperlipidemia type: unspecified Qualified Code(s): E78.5 - Hyperlipidemia , unspecified (12) HTN (hypertension) Code(s): I10 - ESSENTIAL (PRIMARY) HYPERTENSION Status: Chronic Qualifiers: Hypertension type: essential hypertension Qualified Code(s): I10 - Essential (primary) hypertension (13) PAD (peripheral artery disease) Code(s): I73.9 - PERIPHERAL VASCULAR DISEASE, UNSPECIFIED Status: Chronic (14) Acute blood loss anemia Code(s): D62 - ACUTE POSTHEMORRHAGIC ANEMIA Status: Acute Comment: Stable - Plan is on zosyn and micafungin -: is having more breaks from bipap -: chest physio, i.spirometer, PT to mobilize -: colostomy has stool in it. -: speech eval for oral intake * . Review of Systems - Medications/Allergies Allergies/Adverse Reactions: Allergies Allergy/AdvReac Type Severity Reaction Status Date / Time No Known Allergies Allergy Verified 08/08/16 08:56 Medications: Current Medications Acetaminophen (Tylenol) 650 mg [place] Q6H PRN PRN Reason: Fever > 101 or Mild Pain Last Admin: 03/24/17 00:13 Dose: 650 mg Acetaminophen (Tylenol Elixir) 650 mg PO Q6H PRN PRN Reason: Fever > 101 or Mild Pain Last Admin: 04/08/17 12:10 Dose: 650 mg Albuterol/Ipratropium (Duoneb) 3 ml NEB [id number] [facility] Last Admin: 04/09/17 11:51 Dose: 3 ml Albuterol/Ipratropium (Duoneb) 3 ml NEB [id number] PRN PRN Reason: SOB &/or Wheezing Ascorbic Acid (Vitamin C) 1,000 mg PO DAILY [facility] Last Admin: 04/09/17 09:16 Dose: 1,000 mg Aspirin (Aspirin) 325 mg PER TUBE DAILY [facility] Last Admin: 04/09/17 09:16 Dose: 325 mg Bisacodyl (Dulcolax) 10 mg [place] DAILYPRN PRN PRN Reason: Constipation Last Admin: 03/25/17 08:44 Dose: 10 mg Dextrose/Water (Dextrose 50%) 25 gm SLOW IVP PRN PRN PRN Reason: Hypoglycemia Famotidine (Pepcid) 20 mg IVPB BID [facility] Last Admin: 04/09/17 09:16 Dose: 20 mg Furosemide (Lasix) 40 mg SLOW IVP 0600 [facility] Last Admin: 04/09/17 06:19 Dose: 40 mg Glucagon (Glucagon) 1 mg IM PRN PRN PRN Reason: Hypoglycemia Hydralazine HCl (Apresoline) 10 mg SLOW IVP Q6H PRN PRN Reason: FOR SBP > 180 Last Admin: 04/06/17 05:18 Dose: 10 mg Piperacillin Sod/Tazobactam (Sod 3.375 gm/ Sodium Chloride) 100 mls @ 200 mls/ hr IVPB Q8HR [facility] Last Admin: 04/09/17 06:19 Dose: 100 mls Potassium Chloride 40 meq/ (Sodium Chloride) 270 mls @ 135 mls/hr IVPB ASDIR PRN PRN Reason: FOR SERUM K+ 2.5 - 3.5 Last Admin: 03/25/17 10:55 Dose: 270 mls Potassium Chloride 40 meq/ (Device) 100 mls @ 50 mls/hr IVPB ASDIR PRN PRN Reason: FOR SERUM K+ 2.5 - 3.5 Last Admin: 04/06/17 04:36 Dose: 100 mls Magnesium Sulfate 1 gm/ Sodium (Chloride) 102 mls @ 102 mls/hr IV PRN PRN PRN Reason: MAG LEVEL 1.4 - 2.0 Last Admin: 04/05/17 10:50 Dose: 102 mls Magnesium Sulfate 2 gm/ Device 100 mls @ 100 mls/hr IVPB ASDIR PRN PRN Reason: MAGNESIUM < 1.4 Last Admin: 03/27/17 10:48 Dose: 100 mls Potassium Phosphate 9 mmol/ (Sodium Chloride) 103 mls @ 25.75 mls/hr IVPB ASDIR PRN PRN Reason: Phosphate 1.0-1.8 Last Admin: 04/01/17 06:14 Dose: 103 mls Potassium Phosphate 12 mmol/ (Sodium Chloride) 254 mls @ 63.5 mls/hr IV ASDIR PRN PRN Reason: Serum phosphate 0.5-0.9 Potassium Phosphate 15 mmol/ (Sodium Chloride) 255 mls @ 63.75 mls/hr IV ASDIR PRN PRN Reason: Serum Phos < 0.5 Micafungin Sodium 100 mg/ (Sodium Chloride) 100 mls @ 100 mls/hr IVPB 1100 [facility] Last Admin: 04/08/17 11:06 Dose: 100 mls Dextrose/Water (D5w) 1,000 mls @ 0 mls/hr IV .Q0M PRN; As Directed PRN Reason: Hypoglycemia Dextrose/Water (D5w) 500 mls @ 50 mls/hr IV .Q10H [facility] Last Admin: 04/09/17 00:28 Dose: Not Given Insulin Detemir 20 units/ (Miscellaneous Medication) 0.2 mls @ 1 mls/hr SC HS [facility] Last Admin: 04/08/17 21:27 Dose: Not Given Insulin Detemir 20 units/ (Miscellaneous Medication) 0.2 mls @ 0 mls/hr SC QAM [facility] Last Admin: 04/09/17 09:32 Dose: 0.2 mls Insulin Human Lispro (Humalog) 0 units [place] .AGGRESSIVE SLIDING PRN PRN Reason: Aggressive Correctional Scale Last Admin: 04/09/17 10:49 Dose: 11 unit Magnesium Oxide (Magnesium Oxide) 400 mg PO BIDPRN PRN PRN Reason: FOR SERUM MAG 1.4 - 2.0 Last Admin: 04/08/17 13:41 Dose: 400 mg Magnesium Oxide (Magnesium Oxide) 800 mg PO PRN PRN PRN Reason: FOR SERUM MAG < 1.4 Miscellaneous Medication (Pharmacy To Dose) 1 each IVPB PRN PRN PRN Reason: Pharmacy to dose Miscellaneous Medication (Phos-Nak) 1 pkt PO TIDPRN PRN PRN Reason: FOR PHOS LEVEL 1.0 - 1.8 Miscellaneous Medication (Phos-Nak) 2 pkt PO TIDPRN PRN PRN Reason: FOR PHOS LEVEL 0.5 - 1.0 Morphine Sulfate (Morphine) 4 mg SLOW IVP Q2H PRN PRN Reason: Pain Last Admin: 04/09/17 08:44 Dose: 4 mg Ondansetron HCl (Zofran) 4 mg IVP Q6H PRN PRN Reason: Nausea/Vomiting Last Admin: 04/08/17 16:26 Dose: 4 mg Potassium Chloride (K-Dur) 40 meq PO ASDIR PRN PRN Reason: FOR SERUM K+ 2.5 - 3.5 Potassium Chloride (Klor-Con) 40 meq PER TUBE ASDIR PRN PRN Reason: FOR SERUM K+ 2.5-3.5 Senna/Docusate Sodium (Senokot S) 1 tab PO BID [facility] Last Admin: 04/09/17 09:16 Dose: 1 tab Sodium Chloride (Flush - Normal Saline) 10 ml IVF Q12HR [facility] Last Admin: 04/09/17 09:16 Dose: 10 ml Sodium Chloride (Flush - Normal Saline) 10 ml IVF PRN PRN PRN Reason: Saline Flush
[2017-04-09] MEDS ORDERED: D5 1/2 NS w/20 mEq KCL 0 ML ONE (11:56)
[2017-04-09] MEDS: Micafungin 100 MG in Sodium Chloride 0.9% 100 ML IVPB SCH (12:00)
[2017-04-09] MEDS ORDERED: Sodium Bicarbonate Tab 325 MG TAB PER TUBE PRN (12:05)
[2017-04-09] MEDS ORDERED: Pancrelipase DR 12000 1 CAP FS PRN (12:05)
[2017-04-09] MEDS: D5 1/2 NS w/20 mEq KCL 1,000 ML IV SCH (12:15)
--- NOTE | 2017-04-09 18:47 | PRG ---
DATE OF SERVICE: 04/09/2017 SERVICE: Pulmonary Medicine. INTERVAL HISTORY: The patient is doing okay from a respiratory standpoint. There has been a signifi cant interval change. The patient continues to breathe comfortably off of his BiPAP. I have been wo rking on mobility and pulmonary toilet. Otherwise, there has been no interval change. PHYSICAL EXAMINATION: VITAL SIGNS: Afebrile, pulse 75, blood pressure 140/50, respirations 21, saturation 96% on 2 liters nasal cannula. GENERAL: The patient is awake and alert. He is in no apparent distress. His breathing is a little bit more comfortable than he had in previous days. HEART: Normal rate and regular. ABDOMEN: Soft. Tender to palpation. Nondistended. Bowel sounds are present. MUSCULOSKELETAL: No cyanosis or clubbing. No pitting in the bilateral lower extremities. NEUROLOGIC: Grossly nonfocal. LABORATORY DATA: WBC 10.0, hemoglobin 8.0, platelets 279,000. INR 1.2. Glucose ranges from 188-305 . ASSESSMENT: 1. Acute hypoxic respiratory failure, improving. 2. Septic shock, resolving. 3. Community-acquired pneumonia. 4. Gross peritonitis secondary to perforated viscus, status post laparotomy and colostomy. 5. Metabolic encephalopathy, resolved. 6. Acute blood loss anemia. 7. Critical care weakness. PLAN: We will continue aggressive efforts in mobilizing the patient. From my perspective, he is get ting to a point where he is ready for transition out of the hospital. I think he will be well served by an LTAC. I will put a consultation into case management for that. Supportive care will otherwis e be continued. I will repeat laboratories in the morning.
[2017-04-10] MEDS: D5 1/2 NS w/20 mEq KCL 1,000 ML IV SCH (04:24)
[2017-04-10 05:29] LABS: ALT (SGPT) 37 U/L (8-55); AST (SGOT) 61 U/L (5-34); Alkaline Phosphatase 106 U/L (40-150); Anion Gap 9 mmol/L (10-20); BUN (Urea Nitrogen) 34 mg/dL (8.4-25.7); Bilirubin, Direct 0.7 mg/dL (0.1-0.3); Calc. Creatinine Clearance 87 mL/min (70-130); Calcium 7.6 mg/dL (7.8-10.44); Carbon Dioxide 28 mmol/L (23-31); Chloride 113 mmol/L (98-107); Estimated GFR-MDRD 76; Phosphorus 3.6 mg/dL (2.3-4.7)
[2017-04-10] MEDS: Furosemide 40 MG/4 ML VIAL SLOW IVP SCH (05:40)
[2017-04-10 05:57] LABS: Anisocytosis SLIGHT = 6-15 cells (100X) (0-5/hpf); Band 18 % (5-11); Mean Platelet Volume 9.5 fL (7.4-10.4); Neutrophil 62 % (42-75); Nucleated RBC 1 % (0); Polychromasia SLIGHT = 2-3 cells (100X) (0-2/hpf); White Blood Cell (WBC) Count 8.4 thou/uL (4.8-10.8)
--- NOTE | 2017-04-10 08:02 | RAD ---
AP CHEST: Indication: History of inhalation. Comparison: 04-06-17 IMPRESSION: Right sided pleural parenchymal opacity is stable. Left sided IJ central venous catheter is unchanged . The patient's gastric catheter has been removed. No pneumothorax is evident. POS: [facility]
[2017-04-10] MEDS: Ascorbic Acid 500 mg Chewable Tablet PO SCH ×2 (09:32→09:33)
[2017-04-10] MEDS: Famotidine/PF 20 mg/2ml Vial IVPB SCH ×2 (09:34→21:24)
[2017-04-10] MEDS: Insulin Detemir 100 UNITS/ML 20 UNITS in Pre-Filled Syringe 1 EACH SC SCH ×2 (09:34→22:50)
[2017-04-10] MEDS: Aspirin 325 MG TAB PER TUBE SCH (09:34)
[2017-04-10] MEDS: Senokot S 8.6-50 MG TAB PO SCH ×2 (09:35→21:24)
[2017-04-10] MEDS: Morphine 4 MG/ML VIAL SLOW IVP PRN (12:34)
[2017-04-10] MEDS: Micafungin 100 MG in Sodium Chloride 0.9% 100 ML IVPB SCH (12:48)
--- NOTE | 2017-04-10 18:38 | PRG ---
DATE OF SERVICE: 04/10/2017 SERVICE: Pulmonary Medicine. INTERVAL HISTORY: The patient is actually looking much more awake and alert. He has better tone in his body. He is working with physical therapy the best that he can. He is yet to get out of bed tocritical access hospital. Otherwise, there has been no interval change to his condition. PHYSICAL EXAMINATION: VITAL SIGNS: Afebrile, pulse 78, blood pressure 154/59, respirations 24, saturation 91% on 2 liters nasal cannula. GENERAL: Patient is awake, alert, in no apparent distress. LUNGS: Decent air entry. There is dependent crackles, which are minimal. HEART: Normal rate, regular. ABDOMEN: Soft, nontender, nondistended. Bowel sounds are positive. MUSCULOSKELETAL: No cyanosis or clubbing. There is still remains trace pitting in the left lower ex tremity. GENITOURINARY: No [place]. NEUROLOGIC: Grossly nonfocal. LABORATORY DATA: WBC 8.4, hemoglobin 7.8, platelets 305,000. Band count is still 18%, but slowly im proving compared to prior. INR 1.2. Sodium 146 and trending upward once again. Chloride 113 and is stable. Basic metabolic profile is otherwise unremarkable. Liver function studies are essentially unremarkable with an improving AST. Abdominal fluid is growing multiple species Chest x-ray demonst rates right-sided pleural parenchymal opacification, which is roughly stable. ASSESSMENT: 1. Acute hypoxic respiratory failure, stable. 2. Septic shock, resolving. 3. Community-acquired pneumonia, status post full course of therapy. 4. Gross peritonitis secondary to perforated viscus, status post long course of therapy with Zosyn. Currently, only on antifungal coverage. 5. Metabolic encephalopathy, resolved. 6. Acute blood loss anemia, improving. 7. Critical care weakness. PLAN: His IJ will be removed. We will change his IV fluids over to D5 water as the patient is becom ing hypernatremic once again. We will continue our efforts at mobilizing the patient.
[2017-04-10] MEDS ORDERED: Dextrose 50% Abboject 50 ML SYRINGE ONE (19:21)
--- NOTE | 2017-04-10 21:01 | PRG ---
DATE OF SERVICE: 04/10/2017 Mr. Bennett is postoperative day #13 from laparotomy for gangrenous colon with perforation and feculent peritonitis. He has a colostomy which has been functioning well. He has been extubated for several days. He seemed to be more lucid and pleasant yesterday. Today, he seems to be a little more somno lent. He has a very poor cough and is unable to really converse to any significant extent with me. He passed his swallow study yesterday, was started on a diet, but with his lethargy and confusion, he has actually had very little p.o. today. He remains on room air with reasonable oxygen saturations. In spite of his inadequate cough, he is maintaining his saturations. He has no specific complaints . His is concerned about his confusion. PHYSICAL EXAMINATION: VITAL SIGNS: On examination today, he remains afebrile, pulse is 78, blood pressure is 154/59, oxyge n saturation is 93% on room air. LUNGS: Have a course sound because of his upper airway noises. ABDOMEN: Soft and nontender. Ostomy appears to be functioning in the left upper quadrant, right-liss ed drain is putting out purulent material still. Yesterday the BHASKAR drain output was 20 mL. LABORATORY STUDIES: Revealed hemoglobin of 7.8 today with a white blood cell count of 8.4. He has a bandemia of 18%. Chemistries reveal elevated sodium and chloride. Total bilirubin is normal at 1.0 . Albumin is low at 2.0. ASSESSMENT: Patient is almost 2 weeks out from his surgery. It is gratifying that he has done as we ll as he has with extubation and hemodynamic stability. In some fashion, we will need to move on to the rehabilitation portion of his care where he can hopefully become stronger and move around and francisco j erate appropriate diet and hopefully his confusion will resolve. I suspect that the best place for t his next phase of care will be a long-term acute care center and LTAC consultation is appropriate at this time. I will reculture the purulent appearing drain fluid on the right. He will probably requi re nasotracheal suctioning to help clear his lungs.
[2017-04-10] MEDS: Dextrose 5% in Water 500 ML IV SCH ×2 (21:14→21:15)
[2017-04-10] MEDS: Dextrose 5% in Water 1,000 ML IV SCH (21:24)
--- NOTE | 2017-04-10 21:35 | PDOC.PN ---
- Subjective Encounter Start Date: 04/10/17 Encounter Start Time: 18:30 Patient seen and examined. No new complaints. No overnight events except for intermittent confusion/pulling ostomy bag and IV lines - Objective Resuscitation Status: Resuscitation Status DNR:Do Not Resuscitate MAR Reviewed: Yes Vital Signs & Weight: Vital Signs (12 hours) Temp Pulse Resp Pulse Ox 04/10/17 18:37 82 26 H 91 L 04/10/17 14:09 78 20 93 L 04/10/17 14:00 99.4 F 04/10/17 10:36 75 16 93 L Weight Admit Weight 211 lb Weight 197 lb 8.547 oz Most Recent Monitor Data Heart Rate from ECG 82 NIBP 188/52 NIBP BP-Mean 136 Respiration from ECG 35 SpO2 95 I&O: 04/09/17 04/10/17 04/11/17 06:59 06:59 06:59 Intake Total 2845 2358 1065 Output Total 3095 1275 6415 Balance -003 -551 -8994 Result Diagrams: 04/10/17 04:25 04/11/17 05:10 Additional Labs: Accuchecks 04/10/17 04/10/17 04/10/17 19:20 12:55 04:30 POC Glucose 51 L* 103 91 04/09/17 21:25 POC Glucose 147 H EKG Reviewed by me: Yes (Tele SR) Phys Exam - Physical Examination Constitutional: NAD Respiratory: no wheezing, no rhonchi Cardiovascular: RRR, no rub Gastrointestinal: soft, non-tender, positive bowel sounds Wound vac/Ostomy Neurological: moves all 4 limbs Dx/Plan - Plan DVT proph w/SCDs IMPRESSION: 1. Bowel perforation/Peritonitis (03/28) s/p Exp laparotomy 2. s/p Code Blue/Cardiac arrest/Vent arrhythmia requiring CPR (03/28)- off Pressors/Amiodarone drip 3. s/p [facility] - now extubated 4. Toxic metabolic encephalopathy. - multifactorial - improving 5. Severe sepsis with acute organ dysfunction/Community-acquired pneumonia with pleural effusion/ hemothorax with acute blood loss anemia. s/p drainage with CT (Chest tube dced) - Completed Atbx 6. Peripheral vascular disease/Carotid artery disease/Coronary artery disease. on ASA. Plavix on hold 7. Diabetes mellitus type 2.- on sliding scale/Hypertension/Anxiety/depression/ Peripheral neuropathy/Chronic pain syndrome/Hyperlipidemia/Gastroesophageal reflux disease/Benign prostatic hypertrophy/Chronic obstructive pulmonary disease/Abnormal troponins, probably secondary to demand ischemia- on nebs 8. Rhabdomyolysis/Hyponatremia/Acute kidney injury on chronic kidney disease stage 2/Hyperkalemia/Acute blood loss anemia - s/p 1 unit PRBC/Metabolic acidosis/lactic acidosis - resolved PLAN: * Cont current meds as below * AM labs * On Micafungin * Cont to monitor * PT Review of Systems - Review of Systems Respiratory: negative: Cough, Dry, Shortness of Breath, Hemoptysis, SOB with Excertion, Pleuritic Pain, Sputum, Wheezing Cardiovascular: negative: Chest Pain, Palpitations, Orthopnea, Paroxysmal Noc. Dyspnea, Edema, Light Headedness - Medications/Allergies Allergies/Adverse Reactions: Allergies Allergy/AdvReac Type Severity Reaction Status Date / Time No Known Allergies Allergy Verified 08/08/16 08:56 Medications: Current Medications Acetaminophen (Tylenol) 650 mg [place] Q6H PRN PRN Reason: Fever > 101 or Mild Pain Last Admin: 03/24/17 00:13 Dose: 650 mg Acetaminophen (Tylenol Elixir) 650 mg PO Q6H PRN PRN Reason: Fever > 101 or Mild Pain Last Admin: 04/08/17 12:10 Dose: 650 mg Hydrocodone Bitart/Acetaminophen ([place] 5/325) 1 tab PO Q6H PRN PRN Reason: Moderate Pain (4-6) Albuterol/Ipratropium (Duoneb) 3 ml NEB [id number] [facility] Last Admin: 04/10/17 18:37 Dose: 3 ml Albuterol/Ipratropium (Duoneb) 3 ml NEB [id number] PRN PRN Reason: SOB &/or Wheezing Lipase/Protease/Amylase ([place] Case [id number]) 1 cap FS .PER PROTOCOL PRN PRN Reason: TUBE OCCLUSION PROTOCOL Ascorbic Acid (Vitamin C) 1,000 mg PO DAILY [facility] Last Admin: 04/10/17 09:33 Dose: 1,000 mg Aspirin (Aspirin) 325 mg PER TUBE DAILY [facility] Last Admin: 04/10/17 09:34 Dose: 325 mg Bisacodyl (Dulcolax) 10 mg [place] DAILYPRN PRN PRN Reason: Constipation Last Admin: 03/25/17 08:44 Dose: 10 mg Dextrose/Water (Dextrose 50%) 25 gm SLOW IVP PRN PRN PRN Reason: Hypoglycemia Famotidine (Pepcid) 20 mg IVPB BID [facility] Last Admin: 04/10/17 21:24 Dose: 20 mg Furosemide (Lasix) 40 mg SLOW IVP 0600 [facility] Last Admin: 04/10/17 05:40 Dose: 40 mg Glucagon (Glucagon) 1 mg IM PRN PRN PRN Reason: Hypoglycemia Hydralazine HCl (Apresoline) 10 mg SLOW IVP Q6H PRN PRN Reason: FOR SBP > 180 Last Admin: 04/06/17 05:18 Dose: 10 mg Potassium Chloride 40 meq/ (Sodium Chloride) 270 mls @ 135 mls/hr IVPB ASDIR PRN PRN Reason: FOR SERUM K+ 2.5 - 3.5 Last Admin: 03/25/17 10:55 Dose: 270 mls Potassium Chloride 40 meq/ (Device) 100 mls @ 50 mls/hr IVPB ASDIR PRN PRN Reason: FOR SERUM K+ 2.5 - 3.5 Last Admin: 04/06/17 04:36 Dose: 100 mls Magnesium Sulfate 1 gm/ Sodium (Chloride) 102 mls @ 102 mls/hr IV PRN PRN PRN Reason: MAG LEVEL 1.4 - 2.0 Last Admin: 04/05/17 10:50 Dose: 102 mls Magnesium Sulfate 2 gm/ Device 100 mls @ 100 mls/hr IVPB ASDIR PRN PRN Reason: MAGNESIUM < 1.4 Last Admin: 03/27/17 10:48 Dose: 100 mls Potassium Phosphate 9 mmol/ (Sodium Chloride) 103 mls @ 25.75 mls/hr IVPB ASDIR PRN PRN Reason: Phosphate 1.0-1.8 Last Admin: 04/01/17 06:14 Dose: 103 mls Potassium Phosphate 12 mmol/ (Sodium Chloride) 254 mls @ 63.5 mls/hr IV ASDIR PRN PRN Reason: Serum phosphate 0.5-0.9 Potassium Phosphate 15 mmol/ (Sodium Chloride) 255 mls @ 63.75 mls/hr IV ASDIR PRN PRN Reason: Serum Phos < 0.5 Micafungin Sodium 100 mg/ (Sodium Chloride) 100 mls @ 100 mls/hr IVPB 1100 [facility] Last Admin: 04/10/17 12:48 Dose: 100 mls Dextrose/Water (D5w) 1,000 mls @ 0 mls/hr IV .Q0M PRN; As Directed PRN Reason: Hypoglycemia Dextrose/Water (D5w) 500 mls @ 50 mls/hr IV .Q10H [facility] Last Admin: 04/10/17 21:15 Dose: Not Given Insulin Detemir 20 units/ (Miscellaneous Medication) 0.2 mls @ 1 mls/hr SC HS [facility] Last Admin: 04/09/17 21:26 Dose: 0.2 mls Insulin Detemir 20 units/ (Miscellaneous Medication) 0.2 mls @ 0 mls/hr SC QAM [facility] Last Admin: 04/10/17 09:34 Dose: 0.2 mls Dextrose/Water (D5w) 1,000 mls @ 70 mls/hr IV .[id number] [facility] Last Admin: 04/10/17 21:24 Dose: 1,000 mls Insulin Human Lispro (Humalog) 0 units [place] .AGGRESSIVE SLIDING PRN PRN Reason: Aggressive Correctional Scale Last Admin: 04/09/17 10:49 Dose: 11 unit Magnesium Oxide (Magnesium Oxide) 400 mg PO BIDPRN PRN PRN Reason: FOR SERUM MAG 1.4 - 2.0 Last Admin: 04/08/17 13:41 Dose: 400 mg Magnesium Oxide (Magnesium Oxide) 800 mg PO PRN PRN PRN Reason: FOR SERUM MAG < 1.4 Miscellaneous Medication (Pharmacy To Dose) 1 each IVPB PRN PRN PRN Reason: Pharmacy to dose Miscellaneous Medication (Phos-Nak) 1 pkt PO TIDPRN PRN PRN Reason: FOR PHOS LEVEL 1.0 - 1.8 Miscellaneous Medication (Phos-Nak) 2 pkt PO TIDPRN PRN PRN Reason: FOR PHOS LEVEL 0.5 - 1.0 Ondansetron HCl (Zofran) 4 mg IVP Q6H PRN PRN Reason: Nausea/Vomiting Last Admin: 04/08/17 16:26 Dose: 4 mg Potassium Chloride (K-Dur) 40 meq PO ASDIR PRN PRN Reason: FOR SERUM K+ 2.5 - 3.5 Potassium Chloride (Klor-Con) 40 meq PER TUBE ASDIR PRN PRN Reason: FOR SERUM K+ 2.5-3.5 Senna/Docusate Sodium (Senokot S) 1 tab PO BID [facility] Last Admin: 04/10/17 21:24 Dose: 1 tab Sodium Bicarbonate (Bicarbonate, Sodium) 650 mg PER TUBE .PER PROTOCOL PRN PRN Reason: ENTERAL TUBE OCCLUSION Sodium Chloride (Flush - Normal Saline) 10 ml IVF Q12HR [facility] Last Admin: 04/10/17 21:24 Dose: 10 ml Sodium Chloride (Flush - Normal Saline) 10 ml IVF PRN PRN PRN Reason: Saline Flush
[2017-04-11] MEDS: Dextrose 5% in Water 500 ML IV SCH (05:29)
[2017-04-11] MEDS: Furosemide 40 MG/4 ML VIAL SLOW IVP SCH (05:30)
[2017-04-11 06:16] LABS: Anion Gap 11 mmol/L (10-20); BUN (Urea Nitrogen) 23 mg/dL (8.4-25.7); Calc. Creatinine Clearance 95 mL/min (70-130); Calcium 7.7 mg/dL (7.8-10.44); Carbon Dioxide 26 mmol/L (23-31); Chloride 112 mmol/L (98-107); Estimated GFR-MDRD 85
[2017-04-11] MEDS: Senokot S 8.6-50 MG TAB PO SCH ×2 (09:15→21:03)
[2017-04-11] MEDS: Dextrose 5% in Water 1,000 ML IV SCH ×2 (09:36→11:22)
[2017-04-11] MEDS: Ascorbic Acid 500 mg Chewable Tablet PO SCH (10:02)
[2017-04-11] MEDS: Famotidine/PF 20 mg/2ml Vial IVPB SCH (10:02)
[2017-04-11] MEDS: Aspirin 325 MG TAB PER TUBE SCH (10:02)
[2017-04-11] MEDS: Insulin Detemir 100 UNITS/ML 20 UNITS in Pre-Filled Syringe 1 EACH SC SCH (10:08)
--- NOTE | 2017-04-11 10:38 | PRG ---
DATE OF SERVICE: 04/11/2017 SERVICE: Pulmonary Medicine. INTERVAL HISTORY: The patient is doing great from a respiratory standpoint. He is breathing very co mfortably off his BiPAP. His mentation is improving ever so slightly. He still gets confused in the evening time and once again removed his colostomy. Otherwise, there were no significant overnight e vents. PHYSICAL EXAMINATION: VITAL SIGNS: Afebrile, pulse 81, blood pressure 138/56, respirations 17, saturation 94% on 2 liters nasal cannula. GENERAL: The patient is awake, alert, in no apparent distress. LUNGS: Excellent air entry. There is no prolonged expiratory phase, wheezing, rhonchi or crackles. HEART: Normal rate, regular. ABDOMEN: Soft, nontender, nondistended, bowel sounds positive. MUSCULOSKELETAL: No cyanosis or clubbing. No pitting in the bilateral lower extremities. NEUROLOGIC: Grossly nonfocal. LABORATORY DATA: Basic metabolic profile was completely unremarkable. His blood sugar overnight was 51, but is improved to 116. Sodium is down trending gently to 145. Potassium 3.7. ASSESSMENT: 1. Acute hypoxic respiratory failure, stable. 2. Septic shock, resolving. 3. Community-acquired pneumonia, status post full course of therapy. 4. Gross peritonitis secondary to perforated viscus, status post long course of therapy with Zosyn. Repeat culture of BHASKAR drain from yesterday was again growing Pseudomonas. 5. Metabolic encephalopathy. 6. Acute blood loss anemia. 7. Critical care weakness. PLAN: We will continue our efforts on mobilizing the patient. Pseudomonas grew out of the BHASKAR drain once again. As such, we will restart on antibiotics directed at that issue. I will await those cult ures and tailor our antibiotic choice to fit the sensitivities. Mandel catheter will be removed today . Lasix will be interrupted and we will provide him with doses on a p.r.n. basis. I will give him o ne additional dose of potassium today. From my perspective, he is at a place where he can be conside red for transition out of the hospital. I do suspect long-term antibiotics could be required. As such, we send him down for PICC line.
--- NOTE | 2017-04-11 11:12 | RAD ---
SUPINE ABDOMEN: HISTORY: Dobhoff placement. FINDINGS: The Dobhoff catheter is coiled within the stomach. The tip points superiorly in the epigastric fundu s. Recommend slight retraction, in an attempt to reposition the Dobhoff tip in the gastric antral re gion. POS: SHEREE
[2017-04-11] MEDS: Micafungin 100 MG in Sodium Chloride 0.9% 100 ML IVPB SCH (11:25)
[2017-04-11] MEDS: Piperacillin/Tazobactam 3.375 GM in Sodium Chloride 0.9% 100 ML IVPB SCH ×3 (11:35→23:30)
--- NOTE | 2017-04-11 12:17 | RAD ---
SINGLE VIEW OF THE UPPER ABDOMEN: Date: 04-11-17 History: Dobbhoff tube placement. FINDINGS: Single view of the upper abdomen shows a Dobbhoff tube again coiled in the stomach with its tip in th e upper aspect of the stomach. This is not significantly changed in position compared to the prior ex am. The wire has been removed. IMPRESSION: Dobbhoff tube located in the stomach. POS: TRANG
[2017-04-11 12:36] VITALS: BMI 31.6
[2017-04-11] MEDS: hydrALAZINE 20 MG/ML VIAL SLOW IVP PRN (17:15)
[2017-04-11] MEDS: HYDROcodone/Acetaminophen 5/325 mg Tablet PO PRN (17:15)
[2017-04-11] MEDS: Insulin Detemir 100 UNITS/ML 10 UNITS in Pre-Filled Syringe 1 EACH SC SCH (20:59)
[2017-04-11] MEDS: Famotidine 20 MG TAB PO SCH (21:03)
--- NOTE | 2017-04-11 23:53 | PDOC.PN ---
- Subjective Encounter Start Date: 04/11/17 Encounter Start Time: 18:00 Patient seen and examined. Intermittent confusion. No overnight events - Objective Resuscitation Status: Resuscitation Status DNR:Do Not Resuscitate MAR Reviewed: Yes Vital Signs & Weight: Vital Signs (12 hours) Temp Pulse Pulse Pulse Resp BP BP 04/11/17 20:00 98.3 F 04/11/17 19:29 98.3 F 83 23 H 04/11/17 18:15 82 16 04/11/17 16:00 99.5 F 04/11/17 14:50 87 90 159/66 H 164/68 H 04/11/17 13:54 87 26 H 04/11/17 12:00 98.8 F Pulse Ox 04/11/17 20:00 04/11/17 19:29 98 04/11/17 18:15 98 04/11/17 16:00 04/11/17 14:50 04/11/17 13:54 93 L 04/11/17 12:00 Weight Admit Weight 211 lb Weight 197 lb 1.492 oz Most Recent Monitor Data Heart Rate from ECG 79 NIBP 167/63 NIBP BP-Mean 120 Respiration from ECG 22 SpO2 98 I&O: 04/10/17 04/11/17 04/12/17 06:59 06:59 06:59 Intake Total 2358 2873 874 Output Total 9322 0270 2359 [facility] -[phone] Result Diagrams: 04/12/17 04:16 04/12/17 04:16 Additional Labs: Accuchecks 04/11/17 04/11/17 04/11/17 20:58 16:54 10:06 POC Glucose 85 81 154 H 04/11/17 05:24 POC Glucose 116 H EKG Reviewed by me: Yes (Tele SR) Phys Exam - Physical Examination Constitutional: NAD Respiratory: no wheezing, no rhonchi Cardiovascular: RRR, no rub Gastrointestinal: soft, positive bowel sounds Dx/Plan - Plan IMPRESSION: 1. Bowel perforation/Peritonitis (03/28) s/p Exp laparotomy 2. s/p Code Blue/Cardiac arrest/Vent arrhythmia requiring CPR (03/28)- off Pressors/Amiodarone drip 3. s/p Acute hypoxic respiratory failure (03/20) - Mech Vent. failed extubation x 1 - now extubated 4. Toxic metabolic encephalopathy. - multifactorial - improving 5. Severe sepsis with acute organ dysfunction/Community-acquired pneumonia with pleural effusion/ hemothorax with acute blood loss anemia. s/p drainage with CT (Chest tube dced) - Completed Atbx 6. Peripheral vascular disease/Carotid artery disease/Coronary artery disease. on ASA. Plavix on hold 7. Diabetes mellitus type 2.- on sliding scale/Hypertension/Anxiety/depression/ Peripheral neuropathy/Chronic pain syndrome/Hyperlipidemia/Gastroesophageal reflux disease/Benign prostatic hypertrophy/Chronic obstructive pulmonary disease/Abnormal troponins, probably secondary to demand ischemia- on nebs 8. Rhabdomyolysis/Hyponatremia/Acute kidney injury on chronic kidney disease stage 2/Hyperkalemia/Acute blood loss anemia - s/p 1 unit PRBC/Metabolic acidosis/lactic acidosis - resolved PLAN: * Cont current meds as below * Cont Micafungin * Cont to monitor * PT Review of Systems - Review of Systems Other: Cannot obtain due to current mentation - Medications/Allergies Allergies/Adverse Reactions: Allergies Allergy/AdvReac Type Severity Reaction Status Date / Time No Known Allergies Allergy Verified 08/08/16 08:56 Medications: Current Medications Acetaminophen (Tylenol) 650 mg DC Q6H PRN PRN Reason: Fever > 101 or Mild Pain Last Admin: 03/24/17 00:13 Dose: 650 mg Acetaminophen (Tylenol Elixir) 650 mg PO Q6H PRN PRN Reason: Fever > 101 or Mild Pain Last Admin: 04/08/17 12:10 Dose: 650 mg Hydrocodone Bitart/Acetaminophen ([place] 5/325) 1 tab PO Q6H PRN PRN Reason: Moderate Pain (4-6) Last Admin: 04/11/17 17:15 Dose: 1 tab Albuterol/Ipratropium (Duoneb) 3 ml NEB [id number] MIKE Last Admin: 04/11/17 18:15 Dose: 3 ml Lipase/Protease/Amylase ([place] [id number]) 1 cap FS .PER PROTOCOL PRN PRN Reason: TUBE OCCLUSION PROTOCOL Ascorbic Acid (Vitamin C) 1,000 mg PO DAILY MIKE Last Admin: 04/11/17 10:02 Dose: 1,000 mg Aspirin (Aspirin) 325 mg PER TUBE DAILY MIKE Last Admin: 04/11/17 10:02 Dose: 325 mg Bisacodyl (Dulcolax) 10 mg DC DAILYPRN PRN PRN Reason: Constipation Last Admin: 03/25/17 08:44 Dose: 10 mg Dextrose/Water (Dextrose 50%) 25 gm SLOW IVP PRN PRN PRN Reason: Hypoglycemia Famotidine (Pepcid) 20 mg PO BID [facility] Last Admin: 04/11/17 21:03 Dose: 20 mg Furosemide (Lasix) 40 mg PO DAILY-[facility] Glucagon (Glucagon) 1 mg IM PRN PRN PRN Reason: Hypoglycemia Hydralazine HCl (Apresoline) 10 mg SLOW IVP Q6H PRN PRN Reason: FOR SBP > 180 Last Admin: 04/11/17 17:15 Dose: 10 mg Micafungin Sodium 100 mg/ (Sodium Chloride) 100 mls @ 100 mls/hr IVPB 1100 MIKE Last Admin: 04/11/17 11:25 Dose: 100 mls Dextrose/Water (D5w) 1,000 mls @ 0 mls/hr IV .Q0M PRN; As Directed PRN Reason: Hypoglycemia Piperacillin Sod/Tazobactam (Sod 3.375 gm/ Sodium Chloride) 100 mls @ 200 mls/ hr IVPB Q6HR [facility] Last Admin: 04/11/17 23:30 Dose: 100 mls Dextrose/Water (D5w) 1,000 mls @ 50 mls/hr IV .Q20H [facility] Last Admin: 04/11/17 11:22 Dose: Not Given Insulin Detemir 10 units/ (Miscellaneous Medication) 0.1 mls @ 0 mls/hr SC HS [facility] PRN Reason: As Directed Last Admin: 04/11/17 20:59 Dose: Not Given Insulin Detemir 10 units/ (Miscellaneous Medication) 0.1 mls @ 0 mls/hr SC QAM [facility] PRN Reason: As Directed Insulin Human Lispro (Humalog) 0 units SC .AGGRESSIVE SLIDING PRN PRN Reason: Aggressive Correctional Scale Last Admin: 04/09/17 10:49 Dose: 11 unit Miscellaneous Medication (Pharmacy To Dose) 1 each IVPB PRN PRN PRN Reason: Pharmacy to dose Ondansetron HCl (Zofran) 4 mg IVP Q6H PRN PRN Reason: Nausea/Vomiting Last Admin: 04/08/17 16:26 Dose: 4 mg Potassium Chloride (K-Dur) 40 meq PO ASDIR PRN PRN Reason: FOR SERUM K+ 2.5 - 3.5 Potassium Chloride (Klor-Con) 40 meq PER TUBE ASDIR PRN PRN Reason: FOR SERUM K+ 2.5-3.5 Senna/Docusate Sodium (Senokot S) 1 tab PO BID [facility] Last Admin: 04/11/17 21:03 Dose: 1 tab Sodium Bicarbonate (Bicarbonate, Sodium) 650 mg PER TUBE .PER PROTOCOL PRN PRN Reason: ENTERAL TUBE OCCLUSION Sodium Chloride (Flush - Normal Saline) 10 ml IVF Q12HR [facility] Last Admin: 04/11/17 21:03 Dose: 10 ml Sodium Chloride (Flush - Normal Saline) 10 ml IVF PRN PRN PRN Reason: Saline Flush
[2017-04-12 05:24] LABS: Anion Gap 12 mmol/L (10-20); BUN (Urea Nitrogen) 21 mg/dL (8.4-25.7); Calc. Creatinine Clearance 95 mL/min (70-130); Calcium 7.8 mg/dL (7.8-10.44); Carbon Dioxide 24 mmol/L (23-31); Chloride 112 mmol/L (98-107); Estimated GFR-MDRD 87; Magnesium 1.8 mg/dL (1.6-2.6); Phosphorus 3.3 mg/dL (2.3-4.7)
[2017-04-12 05:27] LABS: #Lymphocytes 1.4 thou/uL (1.20-3.40); #Monocytes 0.7 thou/uL (0.11-0.59); #Neutrophils 5.4 thou/uL (1.40-6.50); %Basophils 0.2 % (0.0-1.0); %Eosinophils 0.6 % (0.0-10.0); %Lymphocytes 18.2 % (21.0-51.0); %Monocytes 9.1 % (0.0-10.0); Hematocrit 29.3 % (42.0-52.0); Mean Platelet Volume 9.1 fL (7.4-10.4); Red Blood Cell (RBC) Count 2.75 mill/uL (4.70-6.10); White Blood Cell (WBC) Count 7.4 thou/uL (4.8-10.8)
[2017-04-12] MEDS: Piperacillin/Tazobactam 3.375 GM in Sodium Chloride 0.9% 100 ML IVPB SCH ×4 (06:04→23:04)
--- NOTE | 2017-04-12 07:58 | RAD ---
AP ABDOMINAL RADIOGRAPH: DATE: 04/12/17. HISTORY: Evaluate Dobbhoff feeding tube placement. COMPARISON: 04/11/17. FINDINGS: A Dobbhoff feeding tube is again noted in place which is coiled overlying the left upper quadrant wit h tip in similar position to the prior study and overlying the expected location of the gastric fundu s. There is a right pleural effusion with parenchymal changes at the right lung base which could be related to either atelectasis or infiltrate. However, this would be better evaluated with chest x-ra y. Vascular calcification in the abdominal aorta. IMPRESSION: 1. Dobbhoff feeding tube noted in place which is coiled overlying the left upper quadrant and tip ov erlies the expected location of the gastric fundus. 2. Right pleural effusion and atelectasis. 3. Vascular calcifications in the abdominal aorta, and the left lateral margin of the abdominal aort a is calcified and extends lateral to the L4-5 level. This could be related to aneurysmal dilatation of the abdominal aorta, but the right lateral margin of the abdominal aorta is not well seen. POS: SHEREE
[2017-04-12] MEDS: Dextrose 5% in Water 1,000 ML IV SCH (08:26)
[2017-04-12] MEDS: Famotidine 20 MG TAB PO SCH ×2 (08:30→21:41)
[2017-04-12] MEDS: Furosemide 40 MG TAB PO SCH (08:30)
[2017-04-12] MEDS: Senokot S 8.6-50 MG TAB PO SCH ×2 (08:30→21:41)
[2017-04-12] MEDS: Ascorbic Acid 500 mg Chewable Tablet PO SCH (08:30)
[2017-04-12] MEDS: Aspirin 325 MG TAB PER TUBE SCH (08:31)
[2017-04-12] MEDS: Insulin Detemir 100 UNITS/ML 10 UNITS in Pre-Filled Syringe 1 EACH SC SCH ×2 (09:30→21:41)
[2017-04-12] MEDS ORDERED: Magnesium Sulfate 2 GM in Sodium Chloride 0.9% 100 ML IVPB SCH (09:30)
[2017-04-12] MEDS ORDERED: Aspirin 81 mg Enteric Coated Tablet PO SCH (09:30)
[2017-04-12] MEDS: HumaLOG 300 UNITS/3 ML VIAL SC PRN ×3 (09:35→17:14)
[2017-04-12] MEDS ORDERED: Magnesium 2 GM/NS 0.9% 100 ML 2 GM in Premix Bag 1 BAG IVPB SCH (09:45)
--- NOTE | 2017-04-12 10:08 | PRG ---
DATE OF SERVICE: 04/12/2017 SERVICE: Pulmonary Medicine. INTERVAL HISTORY: The patient sounds a little worse this morning. He has increasing secretions in t he posterior oropharynx. He has gurgling while he is breathing. Tube feeds were restarted after bhoff tube was placed yesterday again. He cannot provide any additional elements of the history. He is just confused this morning. PHYSICAL EXAMINATION: VITAL SIGNS: Afebrile, pulse 85, blood pressure 170/65, respirations 24, saturation 96% on 2 liters nasal cannula. GENERAL: The patient is awake and alert. He is confused. HEENT: Normocephalic, atraumatic. Sclerae are white, conjunctivae pink. Oral and nasal mucosa is m oist without lesions. LUNGS: Decent air entry. Rhonchi are present. There is no prolonged expiratory phase or wheezing. HEART: Normal rate, regular. ABDOMEN: Soft, nontender, nondistended. Bowel sounds are positive. MUSCULOSKELETAL: No cyanosis or clubbing. There is no pitting in the bilateral lower extremities. NEUROLOGIC: Grossly nonfocal. LABORATORY DATA: WBC 7.4, hemoglobin 9.0, platelets are 334,000. Neutrophil count is normal at 72%. Chloride 112 and stable. Potassium 3.4. Sodium has improved to in normal range of 145. Magnesium and phosphorus were both normal. Repeat BHASKRA cultures are growing Pseudomonas, which is once again pa nsensitive. IMAGING DATA: KUB demonstrates decent placement of the enteric catheter. Right-sided pleural effusi on and atelectasis is evident. Vascular calcifications of the abdominal aorta. ASSESSMENT: 1. Acute hypoxic respiratory failure, improving. 2. Septic shock, resolving. 3. Community-acquired pneumonia, status post full course of therapy. 4. Gross peritonitis secondary to perforated viscus, status post extended course of antibiotic with persistent positive Pseudomonas cultures from BHASKAR drain. 5. Metabolic encephalopathy. 6. Acute blood loss anemia, stable. 7. Critical care weakness. 8. Delirium. PLAN: We will continue supportive care and focus our efforts on mobilizing the patient. Truth be to ld, most of this acute medical issues have come to a close. He is stable for transition out of the h ospital provided that they work on continuing to move him. Magnesium and potassium will be replaced once again today. We will continue to watch his volume status closely but currently, he is pretty cl ose to euvolemic. Pulmonary Critical Care will continue to follow while he remains in this hospital. I will start some blood pressure medications.
[2017-04-12] MEDS: Micafungin 100 MG in Sodium Chloride 0.9% 100 ML IVPB SCH (10:56)
--- NOTE | 2017-04-12 13:22 | PDOC.PN ---
- Subjective Encounter Start Date: 04/12/17 Encounter Start Time: 11:00 Subjective: is awake, not fully oriented - Objective Resuscitation Status: Resuscitation Status DNR:Do Not Resuscitate MAR Reviewed: Yes Vital Signs & Weight: Vital Signs (12 hours) Temp Pulse Resp Pulse Ox 04/12/17 13:14 88 28 H 04/12/17 08:00 98.2 F 04/12/17 07:38 80 18 04/12/17 04:00 98.4 F 04/12/17 03:12 98 Weight Admit Weight 211 lb Weight 194 lb 7.163 oz Most Recent Monitor Data Heart Rate from ECG 86 NIBP 166/71 NIBP BP-Mean 92 Respiration from ECG 30 SpO2 97 I&O: 04/11/17 04/12/17 04/13/17 06:59 06:59 06:59 Intake Total 2873 2159 150 Output Total 3880 2787 430 Balance -1007 -628 -280 Result Diagrams: 04/12/17 04:16 04/12/17 04:16 Additional Labs: Accuchecks 04/12/17 04/12/17 04/12/17 12:33 09:30 04:09 POC Glucose 178 H 234 H 149 H 04/11/17 04/11/17 20:58 16:54 POC Glucose 85 81 Phys Exam - Physical Examination HEENT: PERRLA, moist MMs Neck: no JVD, supple Respiratory: no wheezing, no rales Cardiovascular: RRR, no significant murmur Gastrointestinal: soft, non-tender, positive bowel sounds Musculoskeletal: no edema Neurological: non-focal, moves all 4 limbs Dx/Plan (1) Acute hypoxemic respiratory failure Code(s): J96.01 - ACUTE RESPIRATORY FAILURE WITH HYPOXIA Status: Acute Comment: Improving, extubated, on Bipap prn (2) CAP (community acquired pneumonia) Code(s): J18.9 - PNEUMONIA, UNSPECIFIED ORGANISM Status: Acute Qualifiers: Laterality: unspecified laterality Qualified Code(s): J18.9 - Pneumonia, unspecified organism (3) Peritonitis Code(s): K65.9 - PERITONITIS, UNSPECIFIED Status: Acute Comment: due to gangrenous colitis-s/p left hemicolectomy with colostomy (4) Physical deconditioning Code(s): R53.81 - OTHER MALAISE Status: Acute (5) Septic shock Code(s): A41.9 - SEPSIS, UNSPECIFIED ORGANISM; R65.21 - SEVERE SEPSIS WITH SEPTIC SHOCK Status: Resolved (6) Metabolic encephalopathy Code(s): G93.41 - METABOLIC ENCEPHALOPATHY Status: Resolved (7) Benign enlargement of prostate Code(s): N40.0 - BENIGN PROSTATIC HYPERPLASIA WITHOUT LOWER URINRY TRACT SYMP Status: Chronic Qualifiers: Lower urinary tract symptom presence: unspecified whether lower urinary tract symptoms present Qualified Code(s): N40.0 - Benign prostatic hyperplasia without lower urinary tract symptoms (8) CAD (coronary artery disease) Code(s): I25.10 - ATHSCL HEART DISEASE OF THREE AFFILIATED CORONARY ARTERY W/O ANG PCTRS Status: Chronic Qualifiers: Coronary Disease-Associated Artery/Lesion type: robinson artery [place] vs. transplanted heart: robinson heart Associated angina: without angina Qualified Code(s): I25.10 - Atherosclerotic heart disease of robinson coronary artery without angina pectoris (9) COPD (chronic obstructive pulmonary disease) Status: Chronic Qualifiers: COPD type: chronic bronchitis Chronic bronchitis type: unspecified Qualified Code(s): J42 - Unspecified chronic bronchitis (10) DM2 (diabetes mellitus, type 2) Status: Chronic Qualifiers: Diabetes mellitus complication status: with circulatory complication Diabetes mellitus intermediate insulin use: with intermediate use (11) HLD (hyperlipidemia) Code(s): E78.5 - HYPERLIPIDEMIA, UNSPECIFIED Status: Chronic Qualifiers: Hyperlipidemia type: unspecified Qualified Code(s): E78.5 - Hyperlipidemia , unspecified (12) HTN (hypertension) Code(s): I10 - ESSENTIAL (PRIMARY) HYPERTENSION Status: Chronic Qualifiers: Hypertension type: essential hypertension Qualified Code(s): I10 - Essential (primary) hypertension (13) PAD (peripheral artery disease) Code(s): I73.9 - PERIPHERAL VASCULAR DISEASE, UNSPECIFIED Status: Chronic (14) Acute blood loss anemia Code(s): D62 - ACUTE POSTHEMORRHAGIC ANEMIA Status: Acute Comment: Stable - Plan is on zosyn and micafungin -: has picc line -: h/h around 01/26 -: pt is DNR, ltac eval -: prognosis guarded * . Review of Systems - Medications/Allergies Allergies/Adverse Reactions: Allergies Allergy/AdvReac Type Severity Reaction Status Date / Time No Known Allergies Allergy Verified 08/08/16 08:56 Medications: Current Medications Acetaminophen (Tylenol) 650 mg TN Q6H PRN PRN Reason: Fever > 101 or Mild Pain Last Admin: 03/24/17 00:13 Dose: 650 mg Acetaminophen (Tylenol Elixir) 650 mg PO Q6H PRN PRN Reason: Fever > 101 or Mild Pain Last Admin: 04/08/17 12:10 Dose: 650 mg Hydrocodone Bitart/Acetaminophen ([place] 5/325) 1 tab PO Q6H PRN PRN Reason: Moderate Pain (4-6) Last Admin: 04/11/17 17:15 Dose: 1 tab Albuterol/Ipratropium (Duoneb) 3 ml NEB [id number] [facility] Last Admin: 04/12/17 13:14 Dose: 3 ml Lipase/Protease/Amylase ([place] [id number]) 1 cap FS .PER PROTOCOL PRN PRN Reason: TUBE OCCLUSION PROTOCOL Ascorbic Acid (Vitamin C) 1,000 mg PO DAILY [facility] Last Admin: 04/12/17 08:30 Dose: 1,000 mg Bisacodyl (Dulcolax) 10 mg TN DAILYPRN PRN PRN Reason: Constipation Last Admin: 03/25/17 08:44 Dose: 10 mg Carvedilol (Coreg) 6.25 mg PO BID-[facility] Dextrose/Water (Dextrose 50%) 25 gm SLOW IVP PRN PRN PRN Reason: Hypoglycemia Famotidine (Pepcid) 20 mg PO BID [facility] Last Admin: 04/12/17 08:30 Dose: 20 mg Furosemide (Lasix) 40 mg PO DAILY-[facility] Last Admin: 04/12/17 08:30 Dose: 40 mg Glucagon (Glucagon) 1 mg IM PRN PRN PRN Reason: Hypoglycemia Haloperidol (Haldol) 0.5 mg PO [facility] Hydralazine HCl (Apresoline) 10 mg SLOW IVP Q6H PRN PRN Reason: FOR SBP > 180 Last Admin: 04/11/17 17:15 Dose: 10 mg Micafungin Sodium 100 mg/ (Sodium Chloride) 100 mls @ 100 mls/hr IVPB 1100 [facility] Last Admin: 04/12/17 10:56 Dose: 100 mls Dextrose/Water (D5w) 1,000 mls @ 0 mls/hr IV .Q0M PRN; As Directed PRN Reason: Hypoglycemia Piperacillin Sod/Tazobactam (Sod 3.375 gm/ Sodium Chloride) 100 mls @ 200 mls/ hr IVPB Q6HR [facility] Last Admin: 04/12/17 11:43 Dose: 100 mls Insulin Detemir 10 units/ (Miscellaneous Medication) 0.1 mls @ 0 mls/hr SC HS MIKE PRN Reason: As Directed Last Admin: 04/11/17 20:59 Dose: Not Given Insulin Detemir 10 units/ (Miscellaneous Medication) 0.1 mls @ 0 mls/hr SC QAM [facility] PRN Reason: As Directed Last Admin: 04/12/17 09:30 Dose: 0.1 mls Insulin Human Lispro (Humalog) 0 units SC .AGGRESSIVE SLIDING PRN PRN Reason: Aggressive Correctional Scale Last Admin: 04/12/17 12:40 Dose: 3 unit Miscellaneous Medication (Pharmacy To Dose) 1 each IVPB PRN PRN PRN Reason: Pharmacy to dose Ondansetron HCl (Zofran) 4 mg IVP Q6H PRN PRN Reason: Nausea/Vomiting Last Admin: 04/08/17 16:26 Dose: 4 mg Potassium Chloride (Klor-Con) 40 meq PO Q4H [facility] Stop: 04/12/17 13:31 Last Admin: 04/12/17 11:17 Dose: 40 meq Senna/Docusate Sodium (Senokot S) 1 tab PO BID [facility] Last Admin: 04/12/17 08:30 Dose: 1 tab Sodium Bicarbonate (Bicarbonate, Sodium) 650 mg PER TUBE .PER PROTOCOL PRN PRN Reason: ENTERAL TUBE OCCLUSION Sodium Chloride (Flush - Normal Saline) 10 ml IVF Q12HR [facility] Last Admin: 04/12/17 08:31 Dose: 10 ml Sodium Chloride (Flush - Normal Saline) 10 ml IVF PRN PRN PRN Reason: Saline Flush
--- NOTE | 2017-04-12 15:41 | SPC ---
PROCEDURE: Peripheral insertion central catheter. INDICATION: Skilled Nursing IV therapy. FINDINGS: The dual lumen 5 [place] PICC line was placed via the left brachial vein under ultrasound guidance wit h x-ray confirmation. The tip is positioned at the SVC/right atrium. PROCEDURE NOTE: Left upper extremity is prepped and draped in a sterile manner. Ultrasound was used to assess the lynne ous structures. A left brachial vein in the upper humerus was chosen for puncture. Local anesthesia w as administered with lidocaine. This vein was punctured under ultrasound guidance with micropuncture technique. The wire was advanced into the SVC. The catheter length is measured and cut. Sheaths place d over the wire. Catheter then advanced over the wire. Peel away sheaths removed. Wire removed. X-ray confirmed position of the tip of the catheter at the SVC/right atrium. Catheter is secured with ster ile dressing. There were no problems or complications. POS: [facility]
[2017-04-12] MEDS: Carvedilol 6.25 MG TAB PO SCH (17:11)
[2017-04-13] MEDS: HumaLOG 300 UNITS/3 ML VIAL SC PRN (03:27)
[2017-04-13] MEDS: Piperacillin/Tazobactam 3.375 GM in Sodium Chloride 0.9% 100 ML IVPB SCH (06:12)
[2017-04-13] MEDS: Furosemide 40 MG TAB PO SCH (08:49)
[2017-04-13] MEDS: Ascorbic Acid 500 mg Chewable Tablet PO SCH (08:49)
[2017-04-13] MEDS: Carvedilol 6.25 MG TAB PO SCH (08:49)
[2017-04-13] MEDS: Famotidine 20 MG TAB PO SCH (08:50)
[2017-04-13] MEDS: Senokot S 8.6-50 MG TAB PO SCH (08:50)
[2017-04-13] MEDS: Insulin Detemir 100 UNITS/ML 10 UNITS in Pre-Filled Syringe 1 EACH SC SCH (08:50)
[2017-04-13 08:58] VITALS: BP 156/43
[2017-04-13] MEDS: HYDROcodone/Acetaminophen 5/325 mg Tablet PO PRN (09:07)
[2017-04-13 09:36] VITALS: TEMP 97.1
[2017-04-13] MEDS ORDERED: Piperacillin/Tazobactam 4.5 GM in Sodium Chloride 0.9% 100 ML IVPB SCH (12:00)
--- NOTE | 2017-04-13 13:48 | PDOC.PN ---
- Subjective Encounter Start Date: 04/13/17 Encounter Start Time: 08:40 Subjective: no sob, lethargic, not oriented - Objective Resuscitation Status: Resuscitation Status DNR:Do Not Resuscitate MAR Reviewed: Yes Vital Signs & Weight: Vital Signs (12 hours) Temp Pulse Resp BP Pulse Ox 04/13/17 08:49 156/43 H 04/13/17 08:00 97.1 F L 64 20 99 04/13/17 06:36 100 04/13/17 06:33 64 20 04/13/17 04:00 98.4 F Weight Admit Weight 211 lb Weight 189 lb 9.561 oz Most Recent Monitor Data Heart Rate from ECG 64 NIBP 161/62 NIBP BP-Mean 80 Respiration from ECG 24 SpO2 100 I&O: 04/12/17 04/13/17 04/14/17 06:59 06:59 06:59 Intake Total 2159 2740 580 Output Total 2787 1330 Balance -628 1410 580 Result Diagrams: 04/12/17 04:16 04/12/17 04:16 Additional Labs: Accuchecks 04/13/17 04/13/17 04/12/17 11:08 03:26 21:41 POC Glucose 213 H 242 H 213 H 04/12/17 16:59 POC Glucose 228 H Phys Exam - Physical Examination HEENT: PERRLA, sclera anicteric dry mucosa Neck: no JVD, supple Respiratory: no wheezing, no rales Cardiovascular: RRR, no significant murmur Gastrointestinal: soft, positive bowel sounds surgical site in wound vac Musculoskeletal: no edema dry gangrene of multiple toes Neurological: non-focal, moves all 4 limbs Dx/Plan (1) Acute hypoxemic respiratory failure Code(s): J96.01 - ACUTE RESPIRATORY FAILURE WITH HYPOXIA Status: Acute Comment: Improving, extubated, on Bipap prn (2) CAP (community acquired pneumonia) Code(s): J18.9 - PNEUMONIA, UNSPECIFIED ORGANISM Status: Acute Qualifiers: Laterality: unspecified laterality Qualified Code(s): J18.9 - Pneumonia, unspecified organism (3) Peritonitis Code(s): K65.9 - PERITONITIS, UNSPECIFIED Status: Acute Comment: due to gangrenous colitis-s/p left hemicolectomy with colostomy (4) Physical deconditioning Code(s): R53.81 - OTHER MALAISE Status: Acute (5) Septic shock Code(s): A41.9 - SEPSIS, UNSPECIFIED ORGANISM; R65.21 - SEVERE SEPSIS WITH SEPTIC SHOCK Status: Resolved (6) Metabolic encephalopathy Code(s): G93.41 - METABOLIC ENCEPHALOPATHY Status: Resolved (7) Benign enlargement of prostate Code(s): N40.0 - BENIGN PROSTATIC HYPERPLASIA WITHOUT LOWER URINRY TRACT SYMP Status: Chronic Qualifiers: Lower urinary tract symptom presence: unspecified whether lower urinary tract symptoms present Qualified Code(s): N40.0 - Benign prostatic hyperplasia without lower urinary tract symptoms (8) CAD (coronary artery disease) Code(s): I25.10 - ATHSCL HEART DISEASE OF [place] CORONARY ARTERY W/O ANG PCTRS Status: Chronic Qualifiers: Coronary Disease-Associated Artery/Lesion type: [place] artery [place] vs. transplanted heart: [place] heart Associated angina: without angina Qualified Code(s): I25.10 - Atherosclerotic heart disease of [place] coronary artery without angina pectoris (9) COPD (chronic obstructive pulmonary disease) Status: Chronic Qualifiers: COPD type: chronic bronchitis Chronic bronchitis type: unspecified Qualified Code(s): J42 - Unspecified chronic bronchitis (10) DM2 (diabetes mellitus, type 2) Status: Chronic Qualifiers: Diabetes mellitus complication status: with circulatory complication Diabetes mellitus termite control servicer insulin use: with senior living use (11) HLD (hyperlipidemia) Code(s): E78.5 - HYPERLIPIDEMIA, UNSPECIFIED Status: Chronic Qualifiers: Hyperlipidemia type: unspecified Qualified Code(s): E78.5 - Hyperlipidemia , unspecified (12) HTN (hypertension) Code(s): I10 - ESSENTIAL (PRIMARY) HYPERTENSION Status: Chronic Qualifiers: Hypertension type: essential hypertension Qualified Code(s): I10 - Essential (primary) hypertension (13) PAD (peripheral artery disease) Code(s): I73.9 - PERIPHERAL VASCULAR DISEASE, UNSPECIFIED Status: Chronic (14) Acute blood loss anemia Code(s): D62 - ACUTE POSTHEMORRHAGIC ANEMIA Status: Acute Comment: Stable - Plan is being dc to LTAC today -: d/w and Maria E -: BHASKAR drain to be removed at LTAC depending on drainage -: has dobhoff tube for feeding -: to work with PT for severe deconditioning * .
--- NOTE | 2017-04-13 14:57 | PRG ---
DATE OF SERVICE: 04/13/2017 SERVICE: Pulmonary Medicine. INTERVAL HISTORY: The patient is doing great from a cardiovascular and respiratory standpoint. He d enies any current fevers, chills, nausea, or vomiting. He is breathing comfortably. There have been no overnight events. He continues to have episodes of delirium. Currently, he is in a more sedated form. He has had a history of sedation, agitation, and has been leveled over the last 3 days. I am hopefully, by getting him up and moving him once he gets out of the hospital, some of his encephalop athy will clear. Otherwise, there were no events overnight. PHYSICAL EXAMINATION: VITAL SIGNS: Afebrile, pulse 64, blood pressure 161/62, respirations 24, saturation 100% on 1 liter nasal cannula. GENERAL: Patient is awake, alert, no apparent distress. LUNGS: Decent air entry. Rhonchi are present, but clear with cough which is much stronger. No crac kles or wheezing is appreciated. HEART: Normal rate, regular. ABDOMEN: Soft, nontender, nondistended. Bowel sounds are positive. MUSCULOSKELETAL: No cyanosis or clubbing. No pitting in the bilateral lower extremities. NEUROLOGIC: Grossly nonfocal. LABORATORY DATA: WBC 7.4, hemoglobin 9.0. Platelets 334,000. INR 1.2. Blood sugars ranged from 17 8-234. Pseudomonas is growing in the bacterial culture, it is pansensitive. ASSESSMENT: 1. Acute hypoxic respiratory failure, resolving. 2. Septic shock, resolving. 3. Community-acquired pneumonia status post full course of therapy. 4. Gross Peritonitis secondary to perforated viscus, status post extended course of antibiotic with persistent positive Pseudomonas culture from BHASKAR drain. 5. Metabolic encephalopathy, resolving. 6. Delirium. 7. Acute blood loss anemia, secondary to hemothorax associated with likely cough out of the hospital . 8. Critical care weakness. PLAN: At this point, I do believe that most of his medical conditions have come to close. He will n eed a protracted course of antibiotics until the abdominal inflammation and infection resolves. Unti l then, he needs to pursue aggressive physical therapy and occupational therapy to regain lost streng th. He will be weaned off of narcotics in the outpatient setting if tolerated. Pulmonary or Critica l Care will continue to follow while the patient remains in this hospital, but my suspicion is that h e will be going out to an LTAC today.
--- NOTE | 2017-04-13 16:49 | DIS ---
DATE OF ADMISSION: 03/20/2017 DATE OF DISCHARGE: 04/13/2017 DISCHARGE DISPOSITION: To LTAC. PRIMARY DISCHARGE DIAGNOSES: Sepsis due to peritonitis from gangrenous colitis, status post left hem icolectomy and colostomy; respiratory failure, resolved; community-acquired pneumonia, resolving; sev ere deconditioning; and metabolic encephalopathy; coronary artery disease; chronic obstructive pulmon arpan disease; diabetes mellitus type 2; dysphagia, currently on Dobbhoff feeding; hypertension; periph eral vascular disease; acute blood loss anemia, stable. PROCEDURES DONE DURING HOSPITALIZATION: Please note [facility]. For accurate description of all procedures and labs, please refer to [facility]. Please see the history and physical dictated by Dr. Carpio on 03/20/2016. CT brain on admission showed no in tracranial hemorrhage or fractures. CT chest showed incidental finding of gallstones. There was com plete consolidation and extensive collapse of right lower lobe compatible with right lower lobe pneum onia. Echo with 2D Doppler on 03/20/2016 showed EF of 55%-60%. No major valvular abnormalities were seen. Abdominal ultrasound on 03/21/2017 showed cholelithiasis without evidence of cholecystitis. Romain neumann has had thoracenteses on the right side done by Dr. Anthony King on 03/22/2017 with removal o f 500 mL blood. Abdominal and pelvic CAT scan done on 03/24/2017 showed fluid filled and mildly dila carmela proximal loops of jejunum with possible developing ileus or partial small-bowel obstruction. The patient was intubated on 03/28/2017. A repeat abdominal and pelvic CAT scan done on 03/28/2017 show ed large amount of free intraperitoneal air or significant dilatation of jejunal loops with decompres sed mid and distal small bowel loops indicating a high grade bowel obstruction in the proximal small bowel. Left colon was abnormal with mural thickening, pneumatosis and tiny extraluminal gas pockets on 03/29/2017. On 03/28/2017, patient was taken to the operating room by Dr. Mcallister. He was found to have had gangrenous sigmoid and left colon with extensive feculent peritonitis, small-bowel obstru ction leading to proximal small bowel dilatation. He has had repair of multiple serosal defects in [facility] small bowl, repair of enterotomy x2, Babatunde's procedure with resection of the entire sigmoid and left colon with creation of a transverse colostomy. All of this was done on 03/28/[address] Mejia graham. He has had a PICC line placed on 04/12/2017 by Interventional Radiology. Wound cultures from e abdominal BHASKAR drain have grown Pseudomonas aeruginosa and Enterococcus faecalis sensitive to Zosyn. The Pseudomonas is sensitive to Zosyn discharge. Discharge white count of 7, hemoglobin and hematoc rit 9 and 29, platelet count 334. Had a white count of 20 on the day of admission. Discharge BUN an d creatinine is 21 and 0.8. Albumin on the was 2.0. Total cholesterol 87, triglycerides 205, L DL 34, HDL 12, this was on the . DISCHARGE MEDICATIONS: Vitamin C 1000 mg daily, aspirin 81 mg daily, atorvastatin 40 mg p.o. at bedt dax, Coreg 6.25 mg twice daily, Cymbalta 60 mg p.o. q.a.m., Pepcid 20 mg twice daily, Lasix 40 mg gaetano ly, gabapentin 300 mg twice daily, Haldol 0.5 mg at bedtime, Levemir 10 units subcutaneous twice juliana y, DuoNebs q.6 hourly, micafungin 100 mg IV daily, multivitamin daily, Zosyn 3.375 grams IV q.6 hourl y for another 10 days, Florastor 250 mg daily, Senna 1 tab twice daily, Flomax 0.4 mg twice daily. ALLERGIES: No known drug allergies. DISCHARGE PLAN: Patient to follow up with Dr. Mcallister in 2 weeks. BRIEF COURSE DURING HOSPITALIZATION: The patient initially got admitted on after he was brought for severe lethargy. He initially had cough with expectoration and had pain in the right lower ribc age area. Initial x-ray and CAT scan was consistent with large pleural effusion on the right with ec chymosis on the right thigh area. He was admitted to ICU for sepsis. Thoracentesis with chest tube was placed by Dr. Anthony King. During the course of his stay, patient worsened with abdominal pain and a CAT scan done revealed free air. Dr. Mcallister was consulted and patient has had gangrenous lef t colon. He has had colostomy done with surgical wound left for healing by secondary intention. His surgical scar is in a wound VAC at present. The patient has severe deconditioning from all the abov e. His encephalopathy is also still present at the time of discharge. His family made him a DNR. Debbi francis is still on Zosyn and micafungin. His BHASKAR drain is still draining small amounts of purulent materia l which is growing Pseudomonas sensitive to Zosyn. His overall prognosis is guarded. He still has t rouble swallowing and he is currently on a Dobbhoff tube feeding. He has tried to remove the tube an other occasion and he is on soft restraints for the same. He has been cleared for LTAC by General Cl[facility] rgery and Critical Care. Patient is on nasal cannula and is doing well. His overall prognosis is gu arded and family is clearly aware of it. He needs to follow up with Dr. Mcallister in 2 weeks. His Fol ey catheter has been removed and patient has been voiding well. His colostomy has got stool consiste ntly from last 1 week or so now. The patient's albumin is poor and needs to increase his Dobbhoff fe eding as tolerated. A total of 35 minutes was spent on discharge plan. Please see a face to face documentation on [facility] for the day of discharge. Please note patient still has a BHASKAR drain which is draining small amount s of purulent material around 20-25 mL on a 24-hour cycle. This can be removed once it starts draini ng clear. He needs to follow up with Dr. Mcallister in 1-2 weeks. The patient has a very long road ahe ad with likely rehabilitation or fpc prior to him getting back on his feet.
== END 2017-04-13 11:18 | DRG 853 ==
LOC: ERS 13:47 → CCU 14:53
PROVIDERS: ADMIT Internal Medicine; ATTEND Internal Medicine
PROC: 0BH17EZ Insertion of Endotracheal Airway into Trachea, Via Natural or Artificial Opening (ICD-10-PCS; principal; 2017-03-20)
PROC: 5A09357 Assistance with Respiratory Ventilation, Less than 24 Consecutive Hours, Continuous Positive Airway Pressure (ICD-10-PCS; 2017-03-20)
PROC: 0W9900Z Drainage of Right Pleural Cavity with Drainage Device, Open Approach (ICD-10-PCS; 2017-03-22)
PROC: 0DTN0ZZ Resection of Sigmoid Colon, Open Approach (ICD-10-PCS; 2017-03-28)
PROC: 0D1L0Z4 Bypass Transverse Colon to Cutaneous, Open Approach (ICD-10-PCS; 2017-03-28)
PROC: 5A1955Z Respiratory Ventilation, Greater than 96 Consecutive Hours (ICD-10-PCS; 2017-03-28)
PROC: 0DQ80ZZ Repair Small Intestine, Open Approach (ICD-10-PCS; 2017-03-28)
PROC: 0DNG0ZZ Release Left Large Intestine, Open Approach (ICD-10-PCS; 2017-03-28)
PROC: 0DNN0ZZ Release Sigmoid Colon, Open Approach (ICD-10-PCS; 2017-03-28)
PROC: 5A1945Z Respiratory Ventilation, 24-96 Consecutive Hours (ICD-10-PCS; 2017-03-28)
PROC: 5A12012 Performance of Cardiac Output, Single, Manual (ICD-10-PCS; 2017-03-28)
PROC: 5A2204Z Restoration of Cardiac Rhythm, Single (ICD-10-PCS; 2017-03-28)
PROC: 0BH17EZ Insertion of Endotracheal Airway into Trachea, Via Natural or Artificial Opening (ICD-10-PCS; 2017-03-28)
PROC: 02HV33Z Insertion of Infusion Device into Superior Vena Cava, Percutaneous Approach (ICD-10-PCS; 2017-03-28)
PROC: 3E0436Z Introduction of Nutritional Substance into Central Vein, Percutaneous Approach (ICD-10-PCS; 2017-03-30)
PROC: 30233N1 Transfusion of Nonautologous Red Blood Cells into Peripheral Vein, Percutaneous Approach (ICD-10-PCS; 2017-03-30)
PROC: 02HV33Z Insertion of Infusion Device into Superior Vena Cava, Percutaneous Approach (ICD-10-PCS; 2017-04-12)
DX: A41.9 Sepsis, unspecified organism (principal); J96.01 Acute respiratory failure with hypoxia; K63.1 Perforation of intestine (nontraumatic); R65.21 Severe sepsis with septic shock; G72.81 Critical illness myopathy; J18.9 Pneumonia, unspecified organism; G92 Toxic encephalopathy; J94.2 Hemothorax; K65.9 Peritonitis, unspecified; I46.9 Cardiac arrest, cause unspecified; N17.9 Acute kidney failure, unspecified; J91.8 Pleural effusion in other conditions classified elsewhere; E87.2 Acidosis; M62.82 Rhabdomyolysis; I24.8 Other forms of acute ischemic heart disease; E87.1 Hypo-osmolality and hyponatremia; D62 Acute posthemorrhagic anemia; E87.3 Alkalosis; E87.0 Hyperosmolality and hypernatremia; K56.7 Ileus, unspecified; K56.50 Intestinal adhesions [bands], unspecified as to partial versus complete obstruction; G35 Multiple sclerosis; E87.5 Hyperkalemia; E11.22 Type 2 diabetes mellitus with diabetic chronic kidney disease; I12.9 Hypertensive chronic kidney disease with stage 1 through stage 4 chronic kidney disease, or unspecified chronic kidney disease; N18.2 Chronic kidney disease, stage 2 (mild); Z79.84 Long term (current) use of oral hypoglycemic drugs; E11.65 Type 2 diabetes mellitus with hyperglycemia; E11.51 Type 2 diabetes mellitus with diabetic peripheral angiopathy without gangrene; F41.9 Anxiety disorder, unspecified; F32.9 Major depressive disorder, single episode, unspecified; E11.42 Type 2 diabetes mellitus with diabetic polyneuropathy; G89.4 Chronic pain syndrome; E78.5 Hyperlipidemia, unspecified; K21.9 Gastro-esophageal reflux disease without esophagitis; I25.10 Atherosclerotic heart disease of native coronary artery without angina pectoris; I25.2 Old myocardial infarction; Z66 Do not resuscitate; N40.0 Benign prostatic hyperplasia without lower urinary tract symptoms; R41.0 Disorientation, unspecified; J44.9 Chronic obstructive pulmonary disease, unspecified; E87.8 Other disorders of electrolyte and fluid balance, not elsewhere classified; I71.4 Abdominal aortic aneurysm, without rupture; R13.10 Dysphagia, unspecified; K80.20 Calculus of gallbladder without cholecystitis without obstruction; Z78.1 Physical restraint status; E66.9 Obesity, unspecified; Z68.30 Body mass index [BMI] 30.0-30.9, adult; F17.210 Nicotine dependence, cigarettes, uncomplicated; I45.10 Unspecified right bundle-branch block; F11.11 Opioid abuse, in remission; I48.0 Paroxysmal atrial fibrillation; I77.1 Stricture of artery; B96.5 Pseudomonas (aeruginosa) (mallei) (pseudomallei) as the cause of diseases classified elsewhere; Z96.642 Presence of left artificial hip joint
CPT/HCPCS: 36415; 36416; 36430; 36556; 36569; 51702; 70450; 71010; 71250; 74000; 74176; 74177; 76705; 80048; 80053; 80061; 80069; 80076; 80202; 81001; 81003; 81015; 82140; 82533; 82550; 82553; 82805; 83036; 83605; 83690; 83735; 83880; 84100; 84134; 84484; 85025; 85060; 85610; 85730; 86850; 86900; 86901; 87040; 87070; 87076; 87077; 87086; 87186; 87205; 87324; 87449; 88307; 93005; 93010; 93306; 93970; 94002; 94003; 94640; 94660; 94667; 94668; 94760; 96365; 96367; 96368; 96375; 99292; A4216; A4217; C1751; G8978-GP-CM; G8979-GP-CK; G8981-GP-CM; G8981-GP-CN; G8982-GP-CJ; G8982-GP-CK; G8987-GO-CM; G8988-GO-CK; G8996-GN-CJ; G8996-GN-CK; G8997-GN-CI; J0131; J0153; J0171; J0282; J0360; J0456; J0696; J1815; J1885; J1940; J2001; J2060; J2248; J2250; J2270; J2405; J2543; J2704; J3010; J3370; J3475; J3480; J3490; J7050; J7070; J7611; J7620; P9016; S0028

== ENCOUNTER 2017-04-25 08:23 | Observation (INO) | payer MEDICARE, OTHER ==
[2017-04-25 09:39] LABS: #Lymphocytes 2.8 thou/uL (1.20-3.40); #Monocytes 0.6 thou/uL (0.11-0.59); #Neutrophils 6.3 thou/uL (1.40-6.50); %Basophils 0.4 % (0.0-1.0); %Eosinophils 0.3 % (0.0-10.0); %Lymphocytes 28.7 % (21.0-51.0); %Monocytes 6.4 % (0.0-10.0); %Neutrophils 64.3 % (42.0-75.0); Mean Corpuscular HGB CONC 31.3 g/dL (32.0-36.0); Mean Corpuscular Hemoglobin 33.4 pg (27.0-31.0); Mean Platelet Volume 7.9 fL (7.4-10.4); Platelet Count 225 thou/uL (130-400); RBC Distribution Width 17.8 % (11.5-14.5); Red Blood Cell (RBC) Count 3.28 mill/uL (4.70-6.10); White Blood Cell (WBC) Count 9.8 thou/uL (4.8-10.8)
[2017-04-25 09:51] LABS: ALT (SGPT) 22 U/L (8-55); AST (SGOT) 25 U/L (5-34); Albumin 2.8 g/dL (3.4-4.8); Alkaline Phosphatase 123 U/L (40-150); Anion Gap 14 mmol/L (10-20); BUN (Urea Nitrogen) 14 mg/dL (8.4-25.7); Bilirubin, Total 0.8 mg/dL (0.2-1.2); CK (CPK) 250 U/L (30-200); Calc. Creatinine Clearance 0 mL/min (70-130); Calcium 8.4 mg/dL (7.8-10.44); Carbon Dioxide 24 mmol/L (23-31); Chloride 103 mmol/L (98-107); Estimated GFR-MDRD Greater than 90; Globulin 4.4 g/dL (2.4-3.5); Glucose 247 mg/dL (83-110); Potassium 3.7 mmol/L (3.5-5.1); Protein, Total 7.2 g/dL (5.8-8.1); Sodium 137 mmol/L (136-145)
[2017-04-25 09:54] LABS: Troponin I 0.027 ng/mL (< 0.028)
--- NOTE | 2017-04-25 13:23 | CT ---
NONCONTRAST HEAD CT: Comparison: 03-20-17 History: Mental status alteration. Technique: Noncontrast head CT is performed from skull base to skull vertex. FINDINGS: Limited evaluation due to motion degradation. No parenchymal mass. No extraaxial hematoma. No midline shift. Basilar cisterns are patent. Age appropriate atrophy. Cortical mena white matter differentiation preserved. Ventricles and sulci are patent and symmetric. White matter hypodensity due to chronic small vessel ischemic changes are noted. Calvarium is intact. Adequate aeration of the sinuses and mastoid air cells. IMPRESSION: No acute intracranial process. POS: H
[2017-04-25 13:36] LABS: Lactic Acid 2.3 mmol/L (0.5-2.2)
[2017-04-25] MEDS ORDERED: Diabetic Tussin 200 MG/10 ML UDCUP PO PRN (14:36)
[2017-04-25] MEDS ORDERED: Loratadine 10 MG TAB PO PRN (14:36)
[2017-04-25] MEDS ORDERED: Eucerin (Mineral Oil/Petrolatum,White) 30 gm Jar TOP PRN (14:36)
[2017-04-25] MEDS ORDERED: Benzonatate 100 MG CAP PO PRN (14:36)
[2017-04-25] MEDS ORDERED: Nitroglycerin 0.4 MG TAB (25 Tab Bottle) SL PRN (14:36)
[2017-04-25] MEDS ORDERED: Chloraseptic Spray 180 ml Bottle PO PRN (14:36)
[2017-04-25] MEDS ORDERED: HYDROcodone/Acetaminophen 10/325 mg Tablet PO PRN (14:36)
[2017-04-25] MEDS ORDERED: Artificial Tears 18 DROP/0.9 ML EA EYE PRN (14:36)
[2017-04-25] MEDS ORDERED: Sodium Chloride 0.65% Nasal 44 ML BOT EA NARE PRN (14:36)
[2017-04-25] MEDS ORDERED: Milk Of Magnesia 30 ML UDCUP PO PRN (14:36)
[2017-04-25] MEDS ORDERED: Dextrose 5% in Water 1,000 ML IV PRN (14:36)
[2017-04-25] MEDS ORDERED: hydrALAZINE 20 MG/ML VIAL SLOW IVP PRN (14:36)
[2017-04-25] MEDS ORDERED: Dextrose 50% Abboject 50 ML SYRINGE SLOW IVP PRN (14:36)
[2017-04-25] MEDS ORDERED: Mag-Al 1200 mg/1200 mg/30 ML UDCUP PO PRN (14:36)
[2017-04-25] MEDS ORDERED: Loperamide HCl 2 MG CAP PO PRN (14:36)
[2017-04-25] MEDS ORDERED: Ondansetron ODT 4 MG TAB PO PRN (14:36)
[2017-04-25] MEDS ORDERED: Ondansetron HCl/PF 4 MG/2 ML Vial IVP PRN (14:36)
[2017-04-25] MEDS ORDERED: Senokot 8.6 MG TAB PO PRN (14:36)
[2017-04-25] MEDS ORDERED: HumaLOG 300 UNITS/3 ML VIAL SC PRN (14:36)
[2017-04-25] MEDS ORDERED: Acetaminophen 325 MG TAB PO PRN (14:36)
[2017-04-25] MEDS ORDERED: ISOVUE-370 76%-LOCM 1 ML ONE (15:32)
[2017-04-25] MEDS ORDERED: Iopamidol 370 76% 50 ML VIAL FS ONE (15:32)
[2017-04-25 15:48] VITALS: BMI 27.8
--- NOTE | 2017-04-25 16:07 | HP ---
PRIMARY CARE PHYSICIAN: City call admission. REASON FOR ADMISSION: Social admission for placement. HISTORY OF PRESENT ILLNESS: A 72-year-old male who has recently complicated hospital course. He was admitted on 03/20/2017. At that time, patient was found with pneumonia and he also had right-sided ecchymosis. He also had pleural effusion. He required thoracentesis and chest tube placement. He w as getting treatment in ICU. During that period, the patient had abdominal pain and abdominal distention. CT scan showed gangreno us left colon, and patient required surgery. Colostomy was placed and surgical wound left for healin g by secondary intention. He was requiring wound VAC. Patient had a BHASKAR drain in place. The patient was receiving micafungin and Zosyn while in hospital. The patient was DNR. The patient was getting Dobbhoff tube feeding by the time of discharge and vijay ent was discharged to [facility] in [place]. This patient did not like that place. Medication was prescribed as per discharge summary somehow on on Sunday. The patient decided to leave against medical advice. PICC line was removed . As per patient's , at [facility], patient had some new adjustment of medic ation. The patient's requested to get medication list, but they did not give him his medication list and was told to get from primary care physician. After going home, the patient's was trying to reach primary care physician on Sunday, but they were closed. Sunday night and Sunday, patient's had a hard time to take care of him, because mitzi caceres did not have any equipment necessary to take care of him, and this patient has colostomy wound re quiring wound VAC as well as he has severe physical deconditioning. The patient's was not able to help him out at all and that is why today the patient's after frustration brought him back to the ER for help. Today, in the emergency room, the patient is completely hemodynamically stable, afebrile. His blood test is showing macrocytic anemia. He has mild lactic acidosis. Otherwise, renal function and LFT n ormal. He is on room air and he is saturating normal. The patient's cannot take care of him an d that is why we are admitting this patient to hospital for observation to assist with discharge plan louie. REVIEW OF SYSTEMS: The following complete review of systems was negative, unless otherwise mentioned in the HPI or below: Constitutional: Weight loss or gain, ability to conduct usual activities. Sk in: Rash, itching. Eyes: Double vision, pain. ENT/Mouth: Nose bleeding, neck stiffness, pain, te nderness. Cardiovascular: Palpitations, dyspnea on exertion, orthopnea. Respiratory: Shortness of breath, wheezing, cough, hemoptysis, fever or night sweats. Gastrointestinal: Poor appetite, abdom inal pain, heartburn, nausea, vomiting, constipation, or diarrhea. Genitourinary: Urgency, frequenc y, dysuria, nocturia. Musculoskeletal: Pain, swelling. Neurologic/Psychiatric: Anxiety, depressio n. Allergy/Immunologic: Skin rash, bleeding tendency. Please see my HPI for pertinent positives an d negatives. All other review of systems reviewed and negative except as mentioned in the HPI. ALLERGIES: No known drug allergies. CURRENT HOME MEDICATIONS: Vitamin C 1000 mg p.o. daily, aspirin 81 mg p.o. daily, Lipitor 40 mg p.o. at bedtime, Coreg 6.25 mg p.o. b.i.d., Cymbalta 60 mg p.o. daily, Pepcid 20 mg p.o. b.i.d., Lasix 40 mg p.o. daily, gabapentin 300 mg p.o. b.i.d., Haldol 0.5 mg p.o. at bedtime, Levemir insulin 10 unit s subcutaneously b.i.d., DuoNeb q.6 hourly, ferrous sulfate with multivitamin 15 mL p.o. daily, Floma x 0.4 mg p.o. b.i.d., Senokot 1 tablet p.o. b.i.d. ADDITIONAL INFORMATION: Patient's also reports that when they did surgery, patient had a code b lue and patient required resuscitation and after that the patient was having black discoloration of a ll toes on the left foot and great toe of the right foot. Today, the patient also felt not acting by himself per . Patient was having delusions at home. The patient was thinking that his gas worker was trying to kill him. PAST MEDICAL HISTORY: Peripheral vascular disease; diabetes, type 2; hypertension; COPD; dyslipidemi a; coronary artery disease; physical deconditioning; recent admission for pneumonia with hip fusion; recent diagnosis of gangrenous colitis with colon perforation, required left hemicolectomy and colost jose alberto. PAST PSYCHIATRIC HISTORY: Anxiety and depression. PAST SURGICAL HISTORY: Tonsillectomy, bypass grafting to left leg, left hip replacement, PICC line p lacement, central line placement, left hemicolectomy, colostomy. SOCIAL HISTORY: Currently, patient left AMA from long-term acute care, and currently, he lives with his and family. He has a history of social drinking of alcohol. No history of illicit drug abu se. He quit smoking just last month on ; otherwise, he used to smoke a half-pack per day . FAMILY HISTORY: Diabetes, hypertension runs among several family members. No strong family history of cancer or stroke. EMERGENCY ROOM COURSE: Reviewed. PHYSICAL EXAMINATION: VITAL SIGNS: Currently, blood pressure 157/77, pulse 89, respiratory rate 22, temperature 98.1, satu ration 94% on room air, weight 68 kilograms. GENERAL: Patient is currently alert, awake hypertensive, in no obvious acute distress. HEENT: Head: Normocephalic, atraumatic. Eyes: Pupils round, reactive to light. Extraocular muscl es intact. ENT: Oropharynx within normal limits. Moist mucous membranes. No pharyngeal erythema, no exudates. NECK: Supple, no JVD, no thyromegaly, no carotid bruit, no jugular venous distension, no meningeal s igns of irritation. LUNGS: Clear to auscultation without any rhonchi or rales, though air entry reduced at bases. CARDIAC: S1, S2 regular. No murmur, no gallop, no rub. ABDOMEN: Bowel sounds present. Patient has open midline laparotomy scar with a 2-cm open wound, whi ch is packed with a Betadine gauze, no pus and no drainage. Left colostomy draining liquid brown sto ol. BHASKAR drain in place. BACK EXAMINATION: Unremarkable. No CVA tenderness. EXTREMITIES: Upper extremities, passive movement of all joints are normal. Lower extremities, multi ple areas of skin breakdown noted. Patient has toes on the left side, 1st to 5, black discoloration and right big toe black. Left haro has a red abrasion. Right knee has abrasion. Sacral area, un-st ageable ulcer. NEUROLOGIC: Nonfocal examination. The patient moves all 4 limbs. No focal neurological deficit not ed. PSYCHIATRIC: Normal affect. SIGNIFICANT LABORATORY DATA: EKG, based on my review, sinus tachycardia, premature atrial complexes, nonspecific ST-T changes. CT brain, based on my review, no acute intracranial process. CBC: WBC 9 .8, hemoglobin 11.0, MCV 107, platelets 225. BMP: Sodium 137, potassium 3.7, chloride 103, BUN 14, creatinine 0.70, glucose 247. Lactic acid 2.3, calcium 8.4. LFT: AST 25, ALT 22, alkaline phosphat ase 123, albumin 2.8. BNP 193.9, CK 250, CK-MB 7.0, troponin 0.027. Albumin 2.8. ASSESSMENT AND PLAN: 1. Recent complicated hospital course with history of gangrenous colon with perforation, required co lectomy, colostomy, drain in place with wound on abdomen is healing with secondary intention, requiri ng complicated wound care. The patient has finished antifungal and antibiotic therapy. 2. Extreme physical deconditioning, unable to take care of himself at home and family also not able to provide any significant help, because of complicated need of medical necessity. 3. Recent admission to long-term care facility from where the patient left against medical advice an d now family cannot take care of him at home with a difficult situation. 4. Macrocytic anemia, and for that reason, we will start folic acid and vitamin B12 therapy and yvette min therapy. 5. Lactic acidosis. Given recent history of complicated abdominal course, we will do CT chest, abdo men, and pelvis to document resolution of intraabdominal and intra-cardiopulmonary process. 6. Diabetes, type 2, insulin requiring. We will start with Levemir insulin 10 units subcutaneous b. i.d. and Humalog insulin as per sliding scale per protocol. Diabetic diet will be given. 7. Nutritional support. We will start Glucerna and Bhanu supplement to promote wound healing. 8. Hypertension, uncontrolled. We will start Coreg 6.25 mg b.i.d., Lasix 40 mg p.o. daily. 9. Anxiety and depression. Continue Cymbalta 60 mg p.o. daily. 10. Coronary artery disease. Continue aspirin 81 mg p.o. daily along with statin and beta-bhupinder t herapy. 11. Dry gangrene started after code blue during previous admission, suspecting end-vessel occlusion and expected autoamputation on the left side of all toes without any superinfection. We will monitor clinical response. 12. Chronic obstructive pulmonary disease. Continue DuoNeb q.6 hourly. 13. Benign enlargement of prostate. Continue Flomax 0.4 mg p.o. daily. 14. Deep vein thrombosis prophylaxis. Lovenox 40 mg subcutaneous daily. 15. Gastrointestinal prophylaxis, Pepcid 20 mg p.o. b.i.d. 16. Code status confirmed with the patient's and the patient's DNR status. DISPOSITION PLAN: We will start rehabilitation evaluation. Our public health social worker will work on placement . He will need either rehab or snf home placement. Disposition plan based on clinical course.
--- NOTE | 2017-04-25 17:25 | CT ---
CT CHEST WITH IV CONTRAST CT ABDOMEN AND PELVIS WITH IV AND ORAL CONTRAST 04/25/17 HISTORY: Abdominal pain. Recent surgery. Chest pain. COMPARISON: 03/28/17. FINDINGS: Small to moderate amount of right pleural fluid and minimal left pleural fluid are present with assoc iated atelectasis at each lung base. Calcification is present within the arterial structures. No evid ence of pneumothorax. Gallbladder is now collapsed around gallstones. An oval 2.1 cm fluid collection is now associated wit h the posterior inferior margin of the right liver lobe. Calcification and fusiform ectasia of the lo wer abdominal aorta is again demonstrated. Postoperative changes of the abdomen and pelvis are now evident. Radiopaque drains are in place. Some residual postoperative fluid is present within the left abdomen without well defined barrios. Left low er quadrant ostomy contains contrast. There is no evidence of obstruction. IMPRESSION: 1. Interval postoperative changes of the abdomen with remaining surgical drains and small amount of postsurgical fluid. A small fluid pocket is associated with the posterior inferior margin of the right liver lobe, not present on the previous exam. Well defined abscess is not yet apparent. 2. Small to moderate right pleural effusion and bibasilar lung atelectasis. 3. Cholelithiasis. POS: [facility]
[2017-04-25] MEDS: Carvedilol 6.25 MG TAB PO SCH (17:33)
[2017-04-25] MEDS: HumaLOG 300 UNITS/3 ML VIAL SC PRN (17:50)
[2017-04-25] MEDS: Famotidine 20 MG TAB PO SCH (20:27)
[2017-04-25] MEDS: Zolpidem Tartrate 5 MG TAB PO PRN (20:27)
[2017-04-25] MEDS: Atorvastatin Calcium 40 MG TAB PO SCH (20:27)
[2017-04-25] MEDS: Insulin Detemir 100 UNITS/ML 10 UNITS in Pre-Filled Syringe SC SCH (20:28)
[2017-04-25] MEDS: Gabapentin 300 MG CAP PO SCH (20:28)
[2017-04-25] MEDS ORDERED: Tamsulosin HCl 0.4 MG CAP PO SCH (21:00)
[2017-04-26 04:51] LABS: ALT (SGPT) 20 U/L (8-55); AST (SGOT) 32 U/L (5-34); Albumin 2.4 g/dL (3.4-4.8); Alkaline Phosphatase 103 U/L (40-150); Anion Gap 14 mmol/L (10-20); BUN (Urea Nitrogen) 10 mg/dL (8.4-25.7); Bilirubin, Total 0.7 mg/dL (0.2-1.2); Calc. Creatinine Clearance 131 mL/min (70-130); Calcium 7.7 mg/dL (7.8-10.44); Carbon Dioxide 23 mmol/L (23-31); Chloride 105 mmol/L (98-107); Estimated GFR-MDRD Greater than 90; Globulin 3.8 g/dL (2.4-3.5); Glucose 134 mg/dL (83-110); Potassium 3.7 mmol/L (3.5-5.1); Protein, Total 6.2 g/dL (5.8-8.1); Sodium 138 mmol/L (136-145)
[2017-04-26 05:35] LABS: #Lymphocytes 2.7 thou/uL (1.20-3.40); #Monocytes 0.8 thou/uL (0.11-0.59); #Neutrophils 5.7 thou/uL (1.40-6.50); %Basophils 0.5 % (0.0-1.0); %Eosinophils 0.4 % (0.0-10.0); %Lymphocytes 29.1 % (21.0-51.0); %Monocytes 8.6 % (0.0-10.0); %Neutrophils 61.4 % (42.0-75.0); Hemoglobin 10.8 g/dL (14.0-18.0); Mean Corpuscular HGB CONC 31.9 g/dL (32.0-36.0); Mean Corpuscular Hemoglobin 33.4 pg (27.0-31.0); Mean Platelet Volume 7.4 fL (7.4-10.4); Platelet Count 199 thou/uL (130-400); RBC Distribution Width 17.4 % (11.5-14.5); Red Blood Cell (RBC) Count 3.22 mill/uL (4.70-6.10); White Blood Cell (WBC) Count 9.2 thou/uL (4.8-10.8)
[2017-04-26] MEDS: Insulin Detemir 100 UNITS/ML 10 UNITS in Pre-Filled Syringe SC SCH ×2 (08:23→20:26)
[2017-04-26] MEDS: Ascorbic Acid 500 mg Chewable Tablet PO SCH (08:24)
[2017-04-26] MEDS: Multivitamin W/ Minerals 1 TAB PO SCH (08:24)
[2017-04-26] MEDS: Carvedilol 6.25 MG TAB PO SCH ×2 (08:27→16:59)
[2017-04-26] MEDS: Furosemide 40 MG TAB PO SCH (08:27)
[2017-04-26] MEDS: Cyanocobalamin (Vitamin B-12) 1,000 MCG TAB PO SCH (08:27)
[2017-04-26] MEDS: DULoxetine 60 MG CAP PO SCH (08:27)
[2017-04-26] MEDS: Famotidine 20 MG TAB PO SCH ×2 (08:27→20:26)
[2017-04-26] MEDS: Enoxaparin Sodium 40 MG/0.4 ML SYRINGE SC SCH (08:27)
[2017-04-26] MEDS: Tamsulosin HCl 0.4 MG CAP PO SCH (08:27)
[2017-04-26] MEDS: Gabapentin 300 MG CAP PO SCH ×2 (08:27→20:26)
[2017-04-26] MEDS: Folic Acid 1 MG TAB PO SCH (08:27)
--- NOTE | 2017-04-26 10:37 | PDOC.PN ---
- Subjective Encounter Start Date: 04/26/17 Encounter Start Time: 10:05 -: old records requested/rev Patient seen and examined. No new complaints. No overnight events - Objective MAR Reviewed: Yes Vital Signs & Weight: Vital Signs (12 hours) Temp Pulse Resp BP Pulse Ox 04/26/17 08:20 93 L 04/26/17 08:00 98.1 F 82 20 149/73 H 91 L 04/26/17 06:24 79 16 95 04/26/17 04:00 98.7 F 82 18 139/71 04/26/17 00:00 97.6 F 75 20 137/60 92 L Weight Weight 183 lb I&O: 04/25/17 04/26/17 04/27/17 06:59 06:59 06:59 Intake Total 200 Output Total 130 Balance 70 Result Diagrams: 04/26/17 05:17 04/26/17 03:54 Additional Labs: Accuchecks 04/26/17 04/25/17 04/25/17 06:26 20:27 16:09 POC Glucose 144 H 262 H 299 H Radiology Reviewed by me: Yes (CT chest abdomen and pelvis) Phys Exam - Physical Examination Constitutional: NAD HEENT: PERRLA, moist MMs, sclera anicteric Neck: no JVD, supple Respiratory: no wheezing, no rhonchi reduced air entry at base, Cardiovascular: RRR, no significant murmur, no rub Gastrointestinal: soft wound noted, colostomy+, drain+ Musculoskeletal: no edema, pulses present black toe on left and black great toe on right Neurological: non-focal, normal sensation Lymphatic: no nodes Psychiatric: normal affect Skin: no rash, normal turgor Dx/Plan (1) Cholelithiases Code(s): K80.20 - CALCULUS OF GALLBLADDER W/O CHOLECYSTITIS W/O OBSTRUCTION Status: Acute (2) Lactic acidosis Code(s): E87.2 - ACIDOSIS Status: Acute (3) Mild bibasilar atelectasis Code(s): J98.11 - ATELECTASIS Status: Acute (4) Benign enlargement of prostate Code(s): N40.0 - BENIGN PROSTATIC HYPERPLASIA WITHOUT LOWER URINRY TRACT SYMP Status: Chronic Qualifiers: Lower urinary tract symptom presence: unspecified whether lower urinary tract symptoms present Qualified Code(s): N40.0 - Benign prostatic hyperplasia without lower urinary tract symptoms (5) CAD (coronary artery disease) Code(s): I25.10 - ATHSCL HEART DISEASE OF [place] CORONARY ARTERY W/O ANG PCTRS Status: Chronic Qualifiers: Coronary Disease-Associated Artery/Lesion type: [place] artery [place] vs. transplanted heart: [place] heart Associated angina: without angina Qualified Code(s): I25.10 - Atherosclerotic heart disease of [place] coronary artery without angina pectoris (6) COPD (chronic obstructive pulmonary disease) Status: Chronic Qualifiers: COPD type: chronic bronchitis Chronic bronchitis type: unspecified Qualified Code(s): J42 - Unspecified chronic bronchitis (7) DM2 (diabetes mellitus, type 2) Status: Chronic Qualifiers: Diabetes mellitus complication status: with circulatory complication Diabetes mellitus assisted insulin use: with assisted use (8) HLD (hyperlipidemia) Code(s): E78.5 - HYPERLIPIDEMIA, UNSPECIFIED Status: Chronic Qualifiers: Hyperlipidemia type: unspecified Qualified Code(s): E78.5 - Hyperlipidemia , unspecified (9) HTN (hypertension) Code(s): I10 - ESSENTIAL (PRIMARY) HYPERTENSION Status: Chronic Qualifiers: Hypertension type: essential hypertension Qualified Code(s): I10 - Essential (primary) hypertension (10) Macrocytic anemia Code(s): D53.9 - NUTRITIONAL ANEMIA, UNSPECIFIED Status: Chronic (11) PAD (peripheral artery disease) Code(s): I73.9 - PERIPHERAL VASCULAR DISEASE, UNSPECIFIED Status: Chronic (12) Physical deconditioning Code(s): R53.81 - OTHER MALAISE Status: Chronic (13) Delayed postoperative wound closure Code(s): Z48.1 - ENCOUNTER FOR PLANNED POSTPROCEDURAL WOUND CLOSURE Status: Acute - Plan cont current plan of care, PT/OT, social welfare administrator, incentive spirometry * will need wound vac at post operative wound site * nutritional support for wound promoting. * drain will be removed today * no infection and no need of antibiotics * abdominal binder * needs placement rehab or snu * medication reviewed as below * symptomatic treatment * discussed with surgeon Review of Systems - Review of Systems ENT: negative: Ear Pain, Ear Discharge, Nose Pain, Nose Discharge, Nose Congestion, Mouth Pain, Mouth Swelling, Throat Pain, Throat Swelling, Other Respiratory: negative: Cough, Dry, Shortness of Breath, Hemoptysis, SOB with Excertion, Pleuritic Pain, Sputum, Wheezing Cardiovascular: negative: chest pain, palpitations, orthopnea, paroxysmal nocturnal dyspnea, edema, light headedness, other Gastrointestinal: negative: Nausea, Vomiting, Abdominal Pain, Diarrhea, Constipation, Melena, Hematochezia, Other Genitourinary: negative: Dysuria, Frequency, Incontinence, Hematuria, Retention , Other Musculoskeletal: negative: Neck Pain, Shoulder Pain, Arm Pain, Back Pain, Hand Pain, Leg Pain, Foot Pain, Other - Medications/Allergies Allergies/Adverse Reactions: Allergies Allergy/AdvReac Type Severity Reaction Status Date / Time No Known Allergies Allergy Verified 04/25/17 15:45 Medications: Current Medications Acetaminophen (Tylenol) 650 mg PO Q4H PRN PRN Reason: Headache/Fever or Pain Hydrocodone Bitart/Acetaminophen ([place] 10/325) 1 tab PO Q4H PRN PRN Reason: Moderate Pain (4-6) Last Admin: 04/26/17 08:23 Dose: 1 tab Al Hydroxide/Mg Hydroxide (Maalox) 30 ml PO Q6H PRN PRN Reason: Heartburn or Indigestion Albuterol/Ipratropium (Duoneb) 3 ml NEB [id number] [facility] Last Admin: 04/26/17 06:24 Dose: 3 ml Artificial Tears (Tears Naturale) 0 drop EA EYE PRN PRN PRN Reason: Dry Eyes Ascorbic Acid (Vitamin C) 1,000 mg PO DAILY [facility] Last Admin: 04/26/17 08:24 Dose: 1,000 mg Aspirin (Aspirin Chewable) 81 mg PO DAILY [facility] Last Admin: 04/26/17 08:27 Dose: 81 mg Atorvastatin Calcium (Lipitor) 40 mg PO HS [facility] Last Admin: 04/25/17 20:27 Dose: 40 mg Benzonatate (Tessalon) 100 mg PO Q4H PRN PRN Reason: Cough Carvedilol (Coreg) 6.25 mg PO BID-WM [facility] Last Admin: 04/26/17 08:27 Dose: 6.25 mg Cyanocobalamin (Vitamin B-12) 1,000 mcg PO DAILY [facility] Last Admin: 04/26/17 08:27 Dose: 1,000 mcg Dextrose/Water (Dextrose 50%) 25 gm SLOW IVP PRN PRN PRN Reason: Hypoglycemia Duloxetine HCl (Cymbalta) 60 mg PO QAM [facility] Last Admin: 04/26/17 08:27 Dose: 60 mg Enoxaparin Sodium (Lovenox) 40 mg SC 0900 [facility] Last Admin: 04/26/17 08:27 Dose: 40 mg Famotidine (Pepcid) 20 mg PO BID [facility] Last Admin: 04/26/17 08:27 Dose: 20 mg Folic Acid (Folvite) 1 mg PO DAILY [facility] Last Admin: 04/26/17 08:27 Dose: 1 mg Furosemide (Lasix) 40 mg PO DAILY-AC [facility] Last Admin: 04/26/17 08:27 Dose: 40 mg Gabapentin (Neurontin) 300 mg PO BID [facility] Last Admin: 04/26/17 08:27 Dose: 300 mg Glucagon (Glucagon) 1 mg IM PRN PRN PRN Reason: Hypoglycemia Guaifenesin (Robitussin Sf) 200 mg PO Q4H PRN PRN Reason: Cough Hydralazine HCl (Apresoline) 10 mg SLOW IVP Q4H PRN PRN Reason: Systolic BP > 180 Dextrose/Water (D5w) 1,000 mls @ 0 mls/hr IV .Q0M PRN; As Directed PRN Reason: Hypoglycemia Insulin Detemir 10 units/ (Miscellaneous Medication) 0.1 mls @ 0 mls/hr SC [facility] Last Admin: 04/25/17 20:28 Dose: 0.1 mls Insulin Detemir 10 units/ (Miscellaneous Medication) 0.1 mls @ 0 mls/hr SC [facility] Last Admin: 04/26/17 08:23 Dose: 0.1 mls Insulin Human Lispro (Humalog) 0 units SC .MODERATE SLIDING SC PRN PRN Reason: Moderate Correctional Scale Last Admin: 04/25/17 17:50 Dose: 6 unit Insulin Human Lispro (Humalog) 0 units SC .BEDTIME SLIDING SC PRN PRN Reason: Bedtime Correctional Scale Last Admin: 04/25/17 20:28 Dose: 3 unit Iron/Minerals/Multivitamins (Theragran M) 1 tab PO DAILY [facility] Last Admin: 04/26/17 08:24 Dose: 1 tab Loperamide HCl (Imodium) 2 mg PO PRN PRN PRN Reason: Diarrhea/Loose Stools Loratadine (Claritin) 10 mg PO DAILYPRN PRN PRN Reason: Sinus Symptoms Magnesium Hydroxide (Milk Of Magnesium) 30 ml PO DAILYPRN PRN PRN Reason: Constipation Mineral Oil/White Petrolatum (Eucerin Cream) 0 gm TOP BIDPRN PRN PRN Reason: Dry Skin Nitroglycerin (Nitrostat) 0.4 mg SL Q5MIN PRN PRN Reason: Chest Pain Ondansetron HCl (Zofran Odt) 4 mg PO Q6H PRN PRN Reason: Nausea/Vomiting Last Admin: 04/26/17 08:38 Dose: 4 mg Ondansetron HCl (Zofran) 4 mg IVP Q6H PRN PRN Reason: Nausea/Vomiting Phenol (Chloraseptic [place] 180 Ml Bot) 0 ml PO PRN PRN PRN Reason: Sore Throat Senna (Senokot) 2 tab PO HSPRN PRN PRN Reason: Constipation Sodium Chloride ([place] Nasal [place] 0.65%) 0 ml EA NARE QIDPRN PRN PRN Reason: Nasal Congestion Tamsulosin HCl (Flomax) 0.4 mg PO DAILY [facility] Last Admin: 04/26/17 08:27 Dose: 0.4 mg Zolpidem Tartrate (Ambien) 5 mg PO HSPRN PRN PRN Reason: Insomnia Last Admin: 04/25/17 20:27 Dose: 5 mg
--- NOTE | 2017-04-26 11:32 | DIS ---
DATE OF ADMISSION: 04/25/2017 DATE OF DISCHARGE: 04/26/2017 PRIMARY CARE PHYSICIAN: [facility] call admission. DISCHARGE DISPOSITION: Rehabilitation. PRIMARY DISCHARGE DIAGNOSES: 1. Extreme physical deconditioning. 2. Postoperative delayed wound closure requiring wound VAC. 3. Lactic acidosis, resolved. 4. Bibasilar atelectasis. SECONDARY DISCHARGE DIAGNOSES: Cholelithiasis, asymptomatic, chronic obstructive pulmonary disease, diabetes type 2, hypertension, dyslipidemia, tobacco abuse disorder, macrocytic anemia, peripheral va scular disease, benign enlargement of prostate, coronary artery disease, recent history of perforated colon required laparotomy and colostomy. PRIMARY PROCEDURE/OPERATION: None. RADIOLOGICAL INVESTIGATION: Chest, abdomen, and pelvis CT scan showed bibasilar atelectasis, small b ilateral pleural effusion, surgical changes, cholelithiasis. CT brain was negative for any acute int racranial process. CBC: WBC 9.2, hemoglobin 10.8, MCV 105, platelets 199. BMP: Sodium 138, potass ium 3.7, chloride 105, carbon dioxide 23, BUN 10, creatinine 0.59, glucose 134, calcium 7.7, AST 32, ALT 20, alkaline phosphatase 103, albumin 2.4. Blood culture negative. DISCHARGE MEDICATIONS: Vitamin C 1000 mg p.o. daily, aspirin 81 mg p.o. daily, Lipitor 40 mg p.o. at bedtime, Coreg 6.25 mg p.o. b.i.d., vitamin B12 1000 mcg p.o. daily, Cymbalta 60 mg p.o. daily, Pepc id 20 mg p.o. b.i.d., folic acid 1 mg p.o. daily, Lasix 40 mg p.o. daily, gabapentin 300 mg p.o. b.i. d., Levemir insulin 10 units subcutaneously b.i.d., DuoNeb q.6 hourly, multivitamin 1 tablet p.o. gaet[place] ly, Senokot one tablet p.o. b.i.d., Flomax 0.4 mg p.o. daily. CONTRAINDICATIONS: None. CODE STATUS: DNR. INPATIENT FACILITY SERVICE ASSOCIATE: Dr. Mcallister was consulted while in hospital. TEST RESULTS PENDING ON DISCHARGE: None. ALLERGIES: No known drug allergy. DISCHARGE PLAN: Post hospital, patient is planned for discharge to rehabilitation and rehabilitation arranged. HOSPITAL COURSE: A 72-year-old male who had prolonged hospital course recently. At that time, patie nt had pneumonia and hemothorax required chest tube placement and thoracentesis. He was in CCU getti ng treatment for sepsis from pneumonia and he developed abdominal distention and abdominal pain, whic h was eventually diagnosed with gangrenous colon and rupture required laparotomy. He was treated wit h micafungin and Zosyn for peritonitis. The patient was discharged to LTAC for 10 days of antifungal and antibody therapy and for PT, OT and wound care. The patient left against medical advice from at [facility] and he went home on . The patient was not able to handle by family member and t hat is why they brought him to Emergency Room. In the emergency room, CT brain was negative because patient appear little bit incoherent. The patient had chest, abdomen and pelvis CT scan that was als o showing no acute process other than postoperative changes. I consulted Dr. Mcallister and Dr. Mcallister recommended to put wound VAC over postoperative wound site which is not closed yet and patient is gi lynne nutritional support for promoting wound healing. At this point, colostomy is functioning properl y. His drain will be removed later on today. He needs wound vacuum over surgical site. Wound does not appear to be infected. Family member cannot take care of him at home and he needs to be going to rehab and that is why we planned rehabilitation consult. Patient will be evaluated for rehabilitati on team and if accepted then this patient is medically stable for discharge to rehab later on today. Unfortunately, this patient cannot be discharged home as patient is not safe for discharge to home a nd family member are not trying to do medical care at home setup and he is extremely weak and he need s more therapy. The patient is seen and examined at bedside today. Paperwork for discharge done. Discharge medicati on reconciliation done. I spoke with Dr. Mcallister. As long as patient has placement, he is stable fo r discharge today.
[2017-04-26] MEDS: HumaLOG 300 UNITS/3 ML VIAL SC PRN ×2 (12:51→17:06)
[2017-04-26] MEDS: Zolpidem Tartrate 5 MG TAB PO PRN (20:26)
[2017-04-26] MEDS: Atorvastatin Calcium 40 MG TAB PO SCH (20:26)
[2017-04-27] MEDS: Gabapentin 300 MG CAP PO SCH (07:52)
[2017-04-27] MEDS: Ascorbic Acid 500 mg Chewable Tablet PO SCH ×2 (07:52→12:37)
[2017-04-27] MEDS: Famotidine 20 MG TAB PO SCH (07:52)
[2017-04-27] MEDS: Cyanocobalamin (Vitamin B-12) 1,000 MCG TAB PO SCH (07:52)
[2017-04-27] MEDS: Multivitamin W/ Minerals 1 TAB PO SCH (07:52)
[2017-04-27] MEDS: DULoxetine 60 MG CAP PO SCH (07:52)
[2017-04-27] MEDS: Tamsulosin HCl 0.4 MG CAP PO SCH (07:53)
[2017-04-27] MEDS: Carvedilol 6.25 MG TAB PO SCH ×2 (07:53→16:06)
[2017-04-27] MEDS: Enoxaparin Sodium 40 MG/0.4 ML SYRINGE SC SCH (07:53)
[2017-04-27] MEDS: Folic Acid 1 MG TAB PO SCH (07:53)
[2017-04-27] MEDS: Insulin Detemir 100 UNITS/ML 10 UNITS in Pre-Filled Syringe SC SCH (08:00)
[2017-04-27] MEDS: Furosemide 40 MG TAB PO SCH (11:43)
[2017-04-27] MEDS: HumaLOG 300 UNITS/3 ML VIAL SC PRN ×2 (11:52→16:52)
--- NOTE | 2017-04-27 12:11 | PDOC.PN ---
- Subjective Encounter Start Date: 04/27/17 Encounter Start Time: 09:30 Patient seen and examined. No new complaints. No overnight events - Objective MAR Reviewed: Yes Vital Signs & Weight: Vital Signs (12 hours) Temp Pulse Resp BP Pulse Ox 04/27/17 11:16 98.3 F 75 16 102/60 92 L 04/27/17 08:56 71 16 92 L 04/27/17 08:00 98.2 F 71 18 128/57 L 92 L 04/27/17 04:23 97.7 F 72 18 97/61 92 L 04/27/17 01:01 93 L 04/27/17 01:00 93 L 04/27/17 00:26 98.0 F 78 18 118/63 91 L Weight Admit Weight 183 lb Weight 183 lb I&O: 04/26/17 04/27/17 04/28/17 06:59 06:59 06:59 Intake Total 200 1150 200 Output Total 130 275 Balance 70 875 200 Result Diagrams: 04/26/17 05:17 04/26/17 03:54 Additional Labs: Accuchecks 04/27/17 04/27/17 04/26/17 11:03 04:27 20:22 POC Glucose 195 H 99 173 H 04/26/17 04/26/17 16:58 11:24 POC Glucose 156 H 230 H Phys Exam - Physical Examination Constitutional: NAD HEENT: PERRLA, moist MMs, sclera anicteric Neck: no JVD, supple Respiratory: no wheezing, no rales, no rhonchi Cardiovascular: RRR, no significant murmur, no rub Gastrointestinal: soft, non-tender, no distention wound vac in place, colostomy+ Musculoskeletal: no edema, pulses present dry gangreen toe on right and left Neurological: non-focal Lymphatic: no nodes Psychiatric: normal affect Skin: no rash, normal turgor Dx/Plan (1) Cholelithiases Code(s): K80.20 - CALCULUS OF GALLBLADDER W/O CHOLECYSTITIS W/O OBSTRUCTION Status: Acute (2) Lactic acidosis Code(s): E87.2 - ACIDOSIS Status: Acute (3) Mild bibasilar atelectasis Code(s): J98.11 - ATELECTASIS Status: Acute (4) Benign enlargement of prostate Code(s): N40.0 - BENIGN PROSTATIC HYPERPLASIA WITHOUT LOWER URINRY TRACT SYMP Status: Chronic Qualifiers: Lower urinary tract symptom presence: unspecified whether lower urinary tract symptoms present Qualified Code(s): N40.0 - Benign prostatic hyperplasia without lower urinary tract symptoms (5) CAD (coronary artery disease) Code(s): I25.10 - ATHSCL HEART DISEASE OF [place] CORONARY ARTERY W/O ANG PCTRS Status: Chronic Qualifiers: Coronary Disease-Associated Artery/Lesion type: [place] artery [place] vs. transplanted heart: [place] heart Associated angina: without angina Qualified Code(s): I25.10 - Atherosclerotic heart disease of [place] coronary artery without angina pectoris (6) COPD (chronic obstructive pulmonary disease) Status: Chronic Qualifiers: COPD type: chronic bronchitis Chronic bronchitis type: unspecified Qualified Code(s): J42 - Unspecified chronic bronchitis (7) DM2 (diabetes mellitus, type 2) Status: Chronic Qualifiers: Diabetes mellitus complication status: with circulatory complication Diabetes mellitus intermodal truck driver insulin use: with intermodal truck driver use (8) HLD (hyperlipidemia) Code(s): E78.5 - HYPERLIPIDEMIA, UNSPECIFIED Status: Chronic Qualifiers: Hyperlipidemia type: unspecified Qualified Code(s): E78.5 - Hyperlipidemia , unspecified (9) HTN (hypertension) Code(s): I10 - ESSENTIAL (PRIMARY) HYPERTENSION Status: Chronic Qualifiers: Hypertension type: essential hypertension Qualified Code(s): I10 - Essential (primary) hypertension (10) Macrocytic anemia Code(s): D53.9 - NUTRITIONAL ANEMIA, UNSPECIFIED Status: Chronic (11) PAD (peripheral artery disease) Code(s): I73.9 - PERIPHERAL VASCULAR DISEASE, UNSPECIFIED Status: Chronic (12) Physical deconditioning Code(s): R53.81 - OTHER MALAISE Status: Chronic (13) Delayed postoperative wound closure Code(s): Z48.1 - ENCOUNTER FOR PLANNED POSTPROCEDURAL WOUND CLOSURE Status: Acute - Plan cont current plan of care, plan discussed w/ family, social contact worker * wound vac * wound care * social work for placement * medically stable with current treatment. * discussed with Review of Systems - Review of Systems ENT: negative: Ear Pain, Ear Discharge, Nose Pain, Nose Discharge, Nose Congestion, Mouth Pain, Mouth Swelling, Throat Pain, Throat Swelling, Other Respiratory: negative: Cough, Dry, Shortness of Breath, Hemoptysis, SOB with Excertion, Pleuritic Pain, Sputum, Wheezing Cardiovascular: negative: chest pain, palpitations, orthopnea, paroxysmal nocturnal dyspnea, edema, light headedness, other Gastrointestinal: negative: Nausea, Vomiting, Abdominal Pain, Diarrhea, Constipation, Melena, Hematochezia, Other Genitourinary: negative: Dysuria, Frequency, Incontinence, Hematuria, Retention , Other Musculoskeletal: negative: Neck Pain, Shoulder Pain, Arm Pain, Back Pain, Hand Pain, Leg Pain, Foot Pain, Other - Medications/Allergies Allergies/Adverse Reactions: Allergies Allergy/AdvReac Type Severity Reaction Status Date / Time No Known Allergies Allergy Verified 04/25/17 15:45 Medications: Current Medications Acetaminophen (Tylenol) 650 mg PO Q4H PRN PRN Reason: Headache/Fever or Pain Last Admin: 04/26/17 20:26 Dose: 650 mg Hydrocodone Bitart/Acetaminophen ([place] 10/325) 1 tab PO Q4H PRN PRN Reason: Moderate Pain (4-6) Last Admin: 04/26/17 08:23 Dose: 1 tab Al Hydroxide/Mg Hydroxide (Maalox) 30 ml PO Q6H PRN PRN Reason: Heartburn or Indigestion Albuterol/Ipratropium (Duoneb) 3 ml NEB [id number] [facility] Last Admin: 04/27/17 08:56 Dose: 3 ml Artificial Tears (Tears Naturale) 0 drop EA EYE PRN PRN PRN Reason: Dry Eyes Ascorbic Acid (Vitamin C) 1,000 mg PO DAILY [facility] Last Admin: 04/27/17 07:52 Dose: 1,000 mg Aspirin (Aspirin Chewable) 81 mg PO DAILY [facility] Last Admin: 04/27/17 07:53 Dose: 81 mg Atorvastatin Calcium (Lipitor) 40 mg PO HS [facility] Last Admin: 04/26/17 20:26 Dose: 40 mg Benzonatate (Tessalon) 100 mg PO Q4H PRN PRN Reason: Cough Carvedilol (Coreg) 6.25 mg PO BID-WM [facility] Last Admin: 04/27/17 07:53 Dose: 6.25 mg Cyanocobalamin (Vitamin B-12) 1,000 mcg PO DAILY [facility] Last Admin: 04/27/17 07:52 Dose: 1,000 mcg Dextrose/Water (Dextrose 50%) 25 gm SLOW IVP PRN PRN PRN Reason: Hypoglycemia Duloxetine HCl (Cymbalta) 60 mg PO QAM [facility] Last Admin: 04/27/17 07:52 Dose: 60 mg Enoxaparin Sodium (Lovenox) 40 mg SC 0900 [facility] Last Admin: 04/27/17 07:53 Dose: 40 mg Famotidine (Pepcid) 20 mg PO BID [facility] Last Admin: 04/27/17 07:52 Dose: 20 mg Folic Acid (Folvite) 1 mg PO DAILY [facility] Last Admin: 04/27/17 07:53 Dose: 1 mg Furosemide (Lasix) 40 mg PO DAILY-AC [facility] Last Admin: 04/27/17 11:43 Dose: Not Given Gabapentin (Neurontin) 300 mg PO BID [facility] Last Admin: 04/27/17 07:52 Dose: 300 mg Glucagon (Glucagon) 1 mg IM PRN PRN PRN Reason: Hypoglycemia Guaifenesin (Robitussin Sf) 200 mg PO Q4H PRN PRN Reason: Cough Hydralazine HCl (Apresoline) 10 mg SLOW IVP Q4H PRN PRN Reason: Systolic BP > 180 Dextrose/Water (D5w) 1,000 mls @ 0 mls/hr IV .Q0M PRN; As Directed PRN Reason: Hypoglycemia Insulin Detemir 10 units/ (Miscellaneous Medication) 0.1 mls @ 0 mls/hr SC [facility] Last Admin: 04/26/17 20:26 Dose: 0.1 mls Insulin Detemir 10 units/ (Miscellaneous Medication) 0.1 mls @ 0 mls/hr SC [facility] Last Admin: 04/27/17 08:00 Dose: 0.1 mls Insulin Human Lispro (Humalog) 0 units SC .MODERATE SLIDING SC PRN PRN Reason: Moderate Correctional Scale Last Admin: 04/27/17 11:52 Dose: 2 unit Insulin Human Lispro (Humalog) 0 units SC .BEDTIME SLIDING SC PRN PRN Reason: Bedtime Correctional Scale Last Admin: 04/25/17 20:28 Dose: 3 unit Iron/Minerals/Multivitamins (Theragran M) 1 tab PO DAILY [facility] Last Admin: 04/27/17 07:52 Dose: 1 tab Loperamide HCl (Imodium) 2 mg PO PRN PRN PRN Reason: Diarrhea/Loose Stools Loratadine (Claritin) 10 mg PO DAILYPRN PRN PRN Reason: Sinus Symptoms Magnesium Hydroxide (Milk Of Magnesium) 30 ml PO DAILYPRN PRN PRN Reason: Constipation Mineral Oil/White Petrolatum (Eucerin Cream) 0 gm TOP BIDPRN PRN PRN Reason: Dry Skin Nitroglycerin (Nitrostat) 0.4 mg SL Q5MIN PRN PRN Reason: Chest Pain Ondansetron HCl (Zofran Odt) 4 mg PO Q6H PRN PRN Reason: Nausea/Vomiting Last Admin: 04/26/17 08:38 Dose: 4 mg Ondansetron HCl (Zofran) 4 mg IVP Q6H PRN PRN Reason: Nausea/Vomiting Phenol (Chloraseptic [place] 180 Ml Bot) 0 ml PO PRN PRN PRN Reason: Sore Throat Senna (Senokot) 2 tab PO HSPRN PRN PRN Reason: Constipation Sodium Chloride ([place] Nasal [place] 0.65%) 0 ml EA NARE QIDPRN PRN PRN Reason: Nasal Congestion Tamsulosin HCl (Flomax) 0.4 mg PO DAILY [facility] Last Admin: 04/27/17 07:53 Dose: 0.4 mg Zolpidem Tartrate (Ambien) 5 mg PO HSPRN PRN PRN Reason: Insomnia Last Admin: 04/26/17 20:26 Dose: 5 mg
--- NOTE | 2017-04-27 15:36 | CON ---
DATE OF CONSULTATION: 04/27/2017 CONSULTING PHYSICIAN: Raymond De Leon M.D. REASON FOR CONSULTATION: History of abdominal surgery with open abdominal wound and intra-abdominal drain. HISTORY OF PRESENT ILLNESS: The patient is a 72-year-old white male. He is known to myself from [facility] surgery. On 03/29/2017, he had presented to the hospital with a pneumoperitoneum and then suspec carmela intestinal perforation. On 03/28/2017, I performed an exploratory laparotomy with evacuation of extensive feculent contents. He had a gangrenous sigmoid and left colon and this was resected and he was given a transverse colostomy. He also had a small-bowel obstruction that was repaired with lysi s of adhesions. He survived the surgery and went to the intensive care unit where he made a slow rec overy. On 04/10/2017 when he was 2 weeks out from his surgery, he seemed to be making progress in be tter than it was anticipated that he would make. He eventually was transferred to [facility] in [place]. He apparently was stable there until he left his facility against medical advice. After being home for a couple of days, his realized that she cannot care for him and br ought him back to the hospital through the emergency room. He was admitted to the hospital. His initial studies included laboratory and radiologic studies. He had an unremarkable CBC with a he moglobin of 11.0 and a white blood cell count of 9.8 with a normal differential. He was reportedly e ating well and his colostomy is functioning well. He is noted to be hypoalbuminemic with albumin lev el of 2.4. He was receiving daily wound care to his midline abdominal wound. He still has a drain i n his right lower quadrant. This has been left in and it had to have grown out Pseudomonas and was d rained a small amount of creamy appearing material. He was discharged from the hospital on antibioti cs. It is uncertain of the extent to which these were taken. His tells me at this time that he is making some progress in regards to his physical therapy and ambulatory capability. He has been tolerating his diet well. They are concerned regarding the appe arance of his wound. PAST MEDICAL HISTORY, SURGICAL HISTORY, ETC: Please see my consultation from 03/28/2017. PHYSICAL EXAMINATION: VITAL SIGNS: He is afebrile. His pulse is in the 60s and 70s, blood pressure is 120/60. LUNGS: He has some coarse upper airway sounds that he has difficulty clearing his airway and coughin g appropriately still. He however appears to be in no respiratory distress. CARDIAC: Regular rate and rhythm. ABDOMEN: Soft, nontender, nondistended with normoactive bowel sounds. There is a functioning colost jose alberto in the left upper abdomen. Midline abdominal wound was inspected. It does not appear to be gran ulating well. The fascia appears to be withdrawn laterally, but however, there is no evidence of deh iscence. There is no obvious infection. The fascial sutures are easily visible. The drain in the r ight lower quadrant was visualized and output appears to be more serous currently than it was previou sly. ASSESSMENT: The patient appears to be making appropriate progress following surgical treatment of a gangrenous sigmoid and left colon. His transverse colostomy is functioning well. His wound is not h ealing as well as would like, but this is not surprising given the functional quality of his body and the severity of his surgery. I would recommend a wound VAC for this to augment healing. His drain in his right lower abdomen will be removed. I recommended an abdominal binder while he is active. P hysical therapy and occupational therapy will be very important as he continues to rehabilitate. He may take a diet as tolerated as his diabetes allows. I will continue to follow his wound and we will be happy to see this again in a couple weeks. Hopefully, he will have the wound VAC entire time unt il I see him back.
--- NOTE | 2017-04-27 15:46 | DIS ---
ADDENDUM Please see my discharge summary dictated yesterday for further details. This patient stayed in the h ospital because of we were waiting for rehab approval. Today finally, he got rehab approval and he i s going to go to [facility] with the same medication. There is no change in my discharge summ arpan from yesterday.
[2017-04-27 16:15] VITALS: BP 96/58; TEMP 97.7
--- NOTE | 2017-04-28 15:00 | EKG ---
Test Reason : Blood Pressure : / mmHG Vent. Rate : 090 BPM Atrial Rate : 090 BPM P-R Int : 140 ms QRS Dur : 108 ms QT Int : 396 ms P-R-T Axes : 056 -09 069 degrees QTc Int : 484 ms Sinus rhythm with Premature atrial complexes Nonspecific ST and T wave abnormality Prolonged QT Abnormal ECG Confirmed by ROSALIND RUELAS D.O. ([id number]), map editor HELENE VAZQUEZ ([id number]) on 04/28/2017 2:59:32 PM Referred By: Confirmed By:ROSALIND RUELAS D.O.
== END 2017-04-27 17:48 ==
LOC: ERS 08:23 → EDUNIT# 15:26 → T4-B 15:26
PROVIDERS: ADMIT Internal Medicine; ATTEND Internal Medicine
DX: R53.81 Other malaise (principal); E87.2 Acidosis; J98.11 Atelectasis; K80.20 Calculus of gallbladder without cholecystitis without obstruction; E11.9 Type 2 diabetes mellitus without complications; I10 Essential (primary) hypertension; J44.9 Chronic obstructive pulmonary disease, unspecified; E78.5 Hyperlipidemia, unspecified; I73.9 Peripheral vascular disease, unspecified; D53.9 Nutritional anemia, unspecified; I25.10 Atherosclerotic heart disease of native coronary artery without angina pectoris; N40.0 Benign prostatic hyperplasia without lower urinary tract symptoms; F41.9 Anxiety disorder, unspecified; F32.9 Major depressive disorder, single episode, unspecified; Z87.891 Personal history of nicotine dependence; Z79.82 Long term (current) use of aspirin; Z79.899 Other long term (current) drug therapy; Z93.3 Colostomy status; Z96.642 Presence of left artificial hip joint; Z90.49 Acquired absence of other specified parts of digestive tract; Z98.890 Other specified postprocedural states; Z66 Do not resuscitate
CPT/HCPCS: 70450; 71260; 74177; 80053 ×2; 82550; 82553; 82962 ×3; 83605; 83880; 84484; 85025 ×2; 87040; 93005; 94640 ×3; 94760; 96372 ×2; 97110; 97139 ×6; 97530 ×3; 99285; G0378 ×2; G8978; G8979; G8987; G8988; 36415; 36416; J1650; J1815; J7620; Q0162

== ENCOUNTER 2017-05-22 13:52 | Inpatient (IN) | payer MEDICARE, OTHER ==
--- NOTE | 2017-05-22 14:40 | RAD ---
CHEST 1 VIEW: Date: 05/22/17 HISTORY: Dyspnea. COMPARISON: 05/12/17. FINDINGS: Portable upright chest demonstrates atherosclerosis of aorta. Enlarged cardiac silhouette. Pulmonary vessels and hilum are normal. Left costophrenic angle is clear. Persistent opacification of the right lung. No pneumothorax or osseous abnormalities. IMPRESSION: Persistent pleural and parenchymal changes right hemithorax. POS: [facility]
[2017-05-22 14:47] LABS: Actual Bicarbonate (HCO3v) 34 mEq/L (22-26); Analyzer IN Cardio ER; pH (venous) 7.39 (7.35-7.45)
[2017-05-22 14:48] LABS: Base Excess 7.3 mEq/L (0 (+/- 2.5)); Hematocrit-VBG 34.7 % (37-51); Hemoglobin (Hb) 10.4 g/dL (12.6-17.4)
[2017-05-22 14:49] LABS: #Lymphocytes 3.2 thou/uL (1.20-3.40); #Neutrophils 11.2 thou/uL (1.40-6.50); %Basophils 0.1 % (0.0-1.0); %Eosinophils 0.3 % (0.0-10.0); %Lymphocytes 20.7 % (21.0-51.0); %Monocytes 6.6 % (0.0-10.0); %Neutrophils 72.2 % (42.0-75.0); Hemoglobin 10.5 g/dL (14.0-18.0); Mean Corpuscular HGB CONC 30.1 g/dL (32.0-36.0); Mean Corpuscular Hemoglobin 30.2 pg (27.0-31.0); Mean Platelet Volume 7.5 fL (7.4-10.4); Platelet Count 470 thou/uL (130-400); Red Blood Cell (RBC) Count 3.47 mill/uL (4.70-6.10); White Blood Cell (WBC) Count 15.5 thou/uL (4.8-10.8)
[2017-05-22 15:11] LABS: ALT (SGPT) 48 U/L (8-55); AST (SGOT) 30 U/L (5-34); Albumin 2.9 g/dL (3.4-4.8); Alkaline Phosphatase 115 U/L (40-150); Anion Gap 14 mmol/L (10-20); BUN (Urea Nitrogen) 15 mg/dL (8.4-25.7); Bilirubin, Total 0.5 mg/dL (0.2-1.2); CK (CPK) 171 U/L (30-200); Calc. Creatinine Clearance 0 mL/min (70-130); Calcium 9.1 mg/dL (7.8-10.44); Carbon Dioxide 29 mmol/L (23-31); Chloride 98 mmol/L (98-107); Estimated GFR-MDRD Greater than 90; Globulin 4.5 g/dL (2.4-3.5); Glucose 377 mg/dL (83-110); Potassium 3.5 mmol/L (3.5-5.1); Protein, Total 7.4 g/dL (5.8-8.1); Sodium 137 mmol/L (136-145)
[2017-05-22] MEDS ORDERED: Dextrose 5% in Water 1,000 ML IV PRN (19:27)
[2017-05-22] MEDS ORDERED: Bisacodyl 5 MG TAB PO PRN (19:27)
[2017-05-22] MEDS ORDERED: Ondansetron ODT 4 MG TAB PO PRN (19:27)
[2017-05-22] MEDS ORDERED: Dextrose 50% Abboject 50 ML SYRINGE SLOW IVP PRN (19:27)
[2017-05-22] MEDS ORDERED: cefTRIAXone\\ROCEPHIN 1 GM in Sodium Chloride 0.9% 100 ML IVPB SCH (19:27)
[2017-05-22] MEDS ORDERED: Acetaminophen 325 MG TAB PO PRN (19:27)
[2017-05-22] MEDS ORDERED: Acetaminophen 650 MG Suppository PR PRN (19:27)
[2017-05-22] MEDS ORDERED: Azithromycin 500 MG in Sodium Chloride 0.9% 250 ML 250 ML IVPB SCH ×2 (19:27→21:00)
[2017-05-22] MEDS ORDERED: Ondansetron HCl/PF 4 MG/2 ML Vial IVP PRN (19:27)
[2017-05-22] MEDS: cefTRIAXone\\ROCEPHIN 1 GM, Syringe 0.4 ML in Sterile Water 9.6 ML SLOW IVP SCH (22:03)
[2017-05-22] MEDS: Famotidine 20 MG TAB PO SCH (22:03)
--- NOTE | 2017-05-22 22:13 | HP ---
PRIMARY CARE PHYSICIAN: Tejas Maxwell D.O. CHIEF COMPLAINT: Shortness of breath. HISTORY OF PRESENT ILLNESS: This is a 72-year-old white male, well known to our service, who has had an extensive hospitalization at the end of last year, he is admitted for pneumonia and hemothorax, possibly from a cracked ribs from coughing. Eventually, he had multiple complications including a respiratory and possible cardiac arrest as well as then developing an ischemic bowel and required laparotomy and had to have a resection of the sigmoid and left colon and a transverse colostomy. The patient was eventually discharged to [facility]. There, he reports that he did not like the care there. He did develop significant bedsore while he was at [facility]. He eventually signed himself an AMA, went home with his , who was unable to care for him and they presented back here around [place] time and he was put in the hospital for a few days while they arranged rehabilitation placement. The patient was in [facility] until about 7-10 days ago. He was discharged home. Of note, his roommate at [facility] did develop influenza. The patient had negative flu swabs at that time and was asymptomatic except for maybe a mildly elevated temperature. He was doing okay at home, though his had to provide full care for him and she did felt that overwhelmed by this. Then, he developed a sore throat 3-4 days ago and then 2 days ago, developed increasing shortness of breath and nonproductive cough. This progressed today and so he called an ambulance. In the ambulance, noted him to be hypoxic on room air and also audibly wheezing. He was given [address] in along with 125 mg of Solu-Medrol, the breathing improved markedly. By the time he got here, he was saturating well on the facemask and eventually able to be weaned down to 2 liters nasal cannula oxygen with only minimal wheezing in the emergency room. He does not have oxygen at home. The patient has also had a little bit of confusion per the , though he is able to communicate and knows where he is. He denies any significant pain or other symptoms at this time. The patient did have an elevated D-dimer in the emergency room. His brain natriuretic peptide was stable with his previous about 200. Chest x-ray was unchanged with continued infiltrates/effusion in the right lower lung. He does have a CT angio ordered; however, they lost the IV during the first attempt and so currently trying to get another IV to do the CT angio. PAST MEDICAL HISTORY: 1. Peripheral vascular disease with necrotic toes and ulcers on the side of his legs after his code last year in the hospital. 2. Diabetes mellitus type 2, longstanding. 3. Hypertension. 4. Chronic obstructive pulmonary disease. 5. Dyslipidemia. 6. Coronary artery disease. 7. Diastolic congestive heart failure with a normal ejection fraction during his last hospitalization. 8. Physical deconditioning. 9. Significant bed sores. PAST SURGICAL HISTORY: 1. Hip fusion. 2. Sigmoid and left colectomy with transverse colostomy. 3. Previous bowel resection in the distant past for a polyp. 4. Tonsillectomy. 5. Bypass grafting to left leg. PSYCHIATRIC HISTORY: Anxiety and depression. SOCIAL HISTORY: The patient currently lives at home with his and family. He has a history of extensive smoking history; however, he quit last year, , at the time of his first hospitalization. No illicit drug use. Social alcohol drinker in the past. FAMILY HISTORY: Diabetes and hypertension. ALLERGIES: No known drug allergies. CURRENT MEDICATIONS: 1. Protonix 40 mg daily. 2. Polyethylene glycol as needed. 3. DuoNeb as needed. 4. Levemir, unknown dose. 5. Tamsulosin 0.4 mg daily. 6. Atorvastatin 40 mg daily. 7. Carvedilol 6.25 mg twice a day. 8. Duloxetine 60 mg daily. 9. Famotidine 20 mg twice a day. 10. Furosemide 40 mg daily. 11. Gabapentin 300 mg twice a day. 12. Ascorbic acid 500 mg daily. 13. Aspirin 81 mg daily. 14. Vitamin B12 1000 mcg daily. REVIEW OF SYSTEMS: Constitutional: No fevers or chills. Eyes: No double vision or blurred vision. ENT: No congestion or drainage. He does have a sore throat previously that is now cleared up. Cardiovascular: No chest pain, no palpitations or racing heart. Pulmonary: See HPI. Gastrointestinal: No abdominal pain, no nausea or vomiting. He does have a patent ostomy with a good production of soft brown stool. Genitourinary: No dysuria or hematuria. Musculoskeletal: No specific muscle aches or joint pains. He does have the dry gangrene of his toes and some ulcers on the sides of his lower legs. Skin: See above. Extremities: Also with a decubitus ulcer as per HPI. Neurologic : No focal numbness, tingling or weakness. Psychiatric: The patient has had a little bit of increased confusion over the last couple of days per the . PHYSICAL EXAMINATION: VITAL SIGNS: Blood pressure 158/73, pulse 91, respirations 18, O2 sat now 98% on 2 liters nasal cannula and temperature 97.9. GENERAL: This is a well-developed, obese white male who appears fairly sleepy with mild increased work of breathing. HEENT: Pupils are equal, round, and reactive to light. Oropharynx with a dry tongue, clear. Oropharynx without redness or exudate. NECK: Supple. No lymphadenopathy, no thyroid nodules or enlargement. HEART: Regular rate and rhythm. No murmurs, rubs or gallops. LUNGS: Bilateral wheezes with mild increased work of breathing. ABDOMEN: Soft, nontender to palpation, normoactive bowel sounds. No hepatosplenomegaly. He does have the patent ostomy on the left side of his abdomen with soft brown stool. He also has a midline laparotomy wound with the wound VAC in it, very small and healing well. EXTREMITIES: The patient has dry gangrene of his toes bilaterally with minimal redness surrounding that and no exudate. He also has a black eschar along the sides of both legs below the knee. He also has a large sacral decubitus ulcer. SKIN: See extremity exam above. He has large sacral decubitus ulcer and see the wound as per the abdominal exam. No other specific skin rashes or lesions. NEUROLOGIC: The patient has intact reflexes in all extremities. No lateralizing signs. He does have diffuse weakness, but is able to move both arms well, less movement in the legs. He has no facial droop. PSYCHIATRIC: He is alert and oriented, but does seem a little confused sometimes his sentences do not make lot of sense. He does not mumble and sometimes difficult to understand. says that this is worse than from his baseline. LABORATORY AND IMAGING DATA: CBC with an elevated white blood cell count of 15.5 and 72% neutrophils, hemoglobin 10.5 and hematocrit 34.8. This is actually pretty good compared to his previous. Platelet count is elevated at 470. A complete metabolic panel was fairly remarkable except for a glucose of 377, albumin of 2.9. CK is normal, CK-MB and troponin normal. Brain natriuretic peptide 208, which is consistent with previous D-dimer elevated at 2.58. Chest x-ray as above. ASSESSMENT AND PLAN: 1. Acute hypoxic respiratory failure, improved now with multiple nebs and steroids, likely a chronic obstructive pulmonary disease exacerbation. There is a distinct possibility of influenza as he had a recent contact. He has not had any high fevers, but given his malnourished and physically depressed state, he may not show classic symptoms for, we will go ahead and get a respiratory viral panel; this is to be done in the emergency room and we will start the patient on Rocephin and azithromycin along with nebs and Solu-Medrol for likely chronic obstructive pulmonary disease exacerbation. 2. Chronic diastolic congestive heart failure. We will continue patient's Lasix and we will restrict his fluids. 3. Acute encephalopathy, likely secondary to #1. We will allow the patient to take his meds and ice chips for now, but we will have Speech Therapy evaluate him before we give him a full diet as his speech is a little bit slurred from his encephalopathy. 4. Diabetes mellitus type 2. We will resume patient's home medications and put him on insulin sliding scale and fingerstick blood sugars q.a.c. and at bedtime. 5. Gastrointestinal prophylaxis. Put the patient on Pepcid twice a day. 6. Deep venous thrombosis prophylaxis, put the patient on Lovenox daily. 7. Sacral decubitus ulcer along with his gangrenous ulcers in his lower extremities. We will have the Wound Care consult. The patient does not appear like the is actually able to care for the patient at home and he will likely needs more long-term placement. He may end up needing a significant placement at this time and eventually transition to a detention as I do not think the can really care for him at home. 8. CODE STATUS. I did discuss this with the patient and with the , they actually previously made him DNR in the hospital and is very ill from his bowel perforation and his previous code; however, given his improvement, may not desire that he would be FULL CODE. Should he be incapacitated, his would be his medical decision maker; her name is Ms. Vilma Bennett. MARIA DEL CARMEN
[2017-05-22] MEDS: HumaLOG 300 UNITS/3 ML VIAL SC PRN (22:17)
[2017-05-23 05:13] LABS: #Lymphocytes 1.6 thou/uL (1.20-3.40); #Monocytes 0.2 thou/uL (0.11-0.59); #Neutrophils 8.7 thou/uL (1.40-6.50); %Basophils 0.1 % (0.0-1.0); %Eosinophils 0.3 % (0.0-10.0); %Lymphocytes 15.2 % (21.0-51.0); %Monocytes 1.9 % (0.0-10.0); %Neutrophils 82.5 % (42.0-75.0); Hemoglobin 10.2 g/dL (14.0-18.0); Mean Corpuscular HGB CONC 30.4 g/dL (32.0-36.0); Mean Corpuscular Volume 98.7 fl (80.0-94.0); Mean Platelet Volume 7.7 fL (7.4-10.4); Platelet Count 415 thou/uL (130-400); RBC Distribution Width 17.1 % (11.5-14.5); Red Blood Cell (RBC) Count 3.42 mill/uL (4.70-6.10); White Blood Cell (WBC) Count 10.6 thou/uL (4.8-10.8)
[2017-05-23 05:24] LABS: Anion Gap 16 mmol/L (10-20); BUN (Urea Nitrogen) 20 mg/dL (8.4-25.7); Calc. Creatinine Clearance 70 mL/min (70-130); Calcium 8.9 mg/dL (7.8-10.44); Carbon Dioxide 25 mmol/L (23-31); Chloride 98 mmol/L (98-107); Estimated GFR-MDRD 90; Glucose 528 mg/dL (83-110); Potassium 3.8 mmol/L (3.5-5.1); Sodium 135 mmol/L (136-145)
[2017-05-23] MEDS: HumaLOG 300 UNITS/3 ML VIAL SC PRN ×4 (06:28→20:48)
[2017-05-23] MEDS: Famotidine 20 MG TAB PO SCH ×2 (08:27→20:48)
[2017-05-23] MEDS ORDERED: Enoxaparin Sodium 40 MG/0.4 ML SYRINGE SC SCH (09:00)
[2017-05-23] MEDS ORDERED: hydrALAZINE 20 MG/ML VIAL SLOW IVP PRN (10:00)
[2017-05-23] MEDS ORDERED: Chloraseptic Spray 180 ml Bottle PO PRN (10:00)
[2017-05-23] MEDS ORDERED: Sodium Chloride 0.65% Nasal 44 ML BOT EA NARE PRN (10:00)
[2017-05-23] MEDS ORDERED: Mag-Al 1200 mg/1200 mg/30 ML UDCUP PO PRN (10:00)
[2017-05-23] MEDS ORDERED: Calcium Carbonate 500 MG ChewTAB PO PRN (10:00)
[2017-05-23] MEDS ORDERED: Eucerin (Mineral Oil/Petrolatum,White) 30 gm Jar TOP PRN (10:00)
[2017-05-23] MEDS ORDERED: Artificial Tears 18 DROP/0.9 ML EA EYE PRN (10:00)
[2017-05-23] MEDS ORDERED: Diabetic Tussin 200 MG/10 ML UDCUP PO PRN (10:00)
[2017-05-23] MEDS ORDERED: Loratadine 10 MG TAB PO PRN (10:00)
[2017-05-23] MEDS ORDERED: Milk Of Magnesia 30 ML UDCUP PO PRN (10:00)
[2017-05-23] MEDS ORDERED: Loperamide HCl 2 MG CAP PO PRN (10:00)
[2017-05-23] MEDS ORDERED: VANCOMYCIN IVPB PRN (10:08)
--- NOTE | 2017-05-23 11:44 | PDOC.PN ---
- Subjective Encounter Start Date: 05/23/17 Encounter Start Time: 08:40 -: old records requested/rev Patient seen and examined. No new complaints. No overnight events bedside, foul smelling wound noted - Objective Resuscitation Status: Resuscitation Status FULL:Full Resuscitation MAR Reviewed: Yes Vital Signs & Weight: Vital Signs (12 hours) Temp Pulse Resp BP Pulse Ox 05/23/17 08:00 98.2 F 92 18 176/75 H 92 L 05/23/17 06:41 91 16 95 05/23/17 04:39 98.1 F 85 20 156/69 H 93 L 05/23/17 00:00 98.0 F 92 20 164/78 H 96 Weight Weight 139 lb 15.896 oz Result Diagrams: 05/23/17 04:40 05/23/17 04:40 Additional Labs: Accuchecks 05/23/17 05/22/17 05/22/17 04:52 20:46 20:05 POC Glucose 473 H 498 H 406 H Phys Exam - Physical Examination Constitutional: NAD HEENT: PERRLA, moist MMs, sclera anicteric Neck: no JVD, supple Respiratory: no wheezing, no rales, no rhonchi Cardiovascular: RRR, no significant murmur, no rub Gastrointestinal: soft, non-tender, no distention, positive bowel sounds colostomy+, wound vac+ Musculoskeletal: no edema, pulses present Neurological: moves all 4 limbs Lymphatic: no nodes Psychiatric: normal affect Skin: no rash, normal turgor Dx/Plan (1) Decubitus ulcer, stage 4 with infection Code(s): L89.94 - PRESSURE ULCER OF UNSPECIFIED SITE, STAGE 4; L08.9 - LOCAL INFECTION OF THE SKIN AND SUBCUTANEOUS TISSUE, UNSP Status: Acute Comment: present on admission, over sacrum (2) COPD exacerbation Code(s): J44.1 - CHRONIC OBSTRUCTIVE PULMONARY DISEASE W (ACUTE) EXACERBATION Status: Acute (3) Diabetes type 2, uncontrolled Code(s): E11.65 - TYPE 2 DIABETES MELLITUS WITH HYPERGLYCEMIA Status: Chronic (4) Hypertension Code(s): I10 - ESSENTIAL (PRIMARY) HYPERTENSION Status: Chronic (5) Acute respiratory failure with hypoxia Code(s): J96.01 - ACUTE RESPIRATORY FAILURE WITH HYPOXIA Status: Resolved (6) BPH (benign prostatic hyperplasia) Code(s): N40.0 - BENIGN PROSTATIC HYPERPLASIA WITHOUT LOWER URINRY TRACT SYMP Status: Chronic (7) CAD (coronary artery disease) Code(s): I25.10 - ATHSCL HEART DISEASE OF [place] CORONARY ARTERY W/O ANG PCTRS Status: Chronic (8) CHF (congestive heart failure) Code(s): I50.9 - HEART FAILURE, UNSPECIFIED Status: Chronic Qualifiers: Congestive heart failure type: diastolic Congestive heart failure chronicity: chronic Qualified Code(s): I50.32 - Chronic diastolic (congestive ) heart failure (9) Cholelithiases Code(s): K80.20 - CALCULUS OF GALLBLADDER W/O CHOLECYSTITIS W/O OBSTRUCTION Status: Chronic (10) Dyslipidemia Code(s): E78.5 - HYPERLIPIDEMIA, UNSPECIFIED Status: Chronic (11) Gangrenous toe Code(s): I96 - GANGRENE, NOT ELSEWHERE CLASSIFIED Status: Chronic (12) Macrocytic anemia Code(s): D53.9 - NUTRITIONAL ANEMIA, UNSPECIFIED Status: Chronic (13) Physical deconditioning Code(s): R53.81 - OTHER MALAISE Status: Chronic - Plan cont current plan of care, plan discussed w/ family, continue antibiotics, social service manager, respiratory therapy * will add vancomycin and continue rocephin * continue wound care * will consult surgeon for I & D * Bhanu BID * code status addressed and confirmed DNI * medication reviewed as below * symptomatic treatment * updated plan to * prognosis poor. Review of Systems - Review of Systems ENT: negative: Ear Pain, Ear Discharge, Nose Pain, Nose Discharge, Nose Congestion, Mouth Pain, Mouth Swelling, Throat Pain, Throat Swelling, Other Respiratory: negative: Cough, Dry, Shortness of Breath, Hemoptysis, SOB with Excertion, Pleuritic Pain, Sputum, Wheezing Cardiovascular: negative: chest pain, palpitations, orthopnea, paroxysmal nocturnal dyspnea, edema, light headedness, other Gastrointestinal: negative: Nausea, Vomiting, Abdominal Pain, Diarrhea, Constipation, Melena, Hematochezia, Other Genitourinary: negative: Dysuria, Frequency, Incontinence, Hematuria, Retention , Other Musculoskeletal: negative: Neck Pain, Shoulder Pain, Arm Pain, Back Pain, Hand Pain, Leg Pain, Foot Pain, Other Skin: negative: Rash, Lesions, Amish, Bruising, Other - Medications/Allergies Allergies/Adverse Reactions: Allergies Allergy/AdvReac Type Severity Reaction Status Date / Time No Known Drug Allergies Allergy Unverified 05/22/17 19:32 Medications: Current Medications Acetaminophen (Tylenol) 650 mg PO Q4H PRN PRN Reason: Headache/Fever or Pain Last Admin: 05/23/17 06:31 Dose: 650 mg Hydrocodone Bitart/Acetaminophen ([place] 5/325) 1 tab PO Q4H PRN PRN Reason: Moderate Pain (4-6) Al Hydroxide/Mg Hydroxide (Maalox) 15 ml PO Q4H PRN PRN Reason: Heartburn or Indigestion Albuterol/Ipratropium (Duoneb) 3 ml NEB Q4H PRN PRN Reason: SOB &/or Wheezing Albuterol/Ipratropium (Duoneb) 3 ml NEB [id number] [facility] Last Admin: 05/23/17 06:41 Dose: 3 ml Artificial Tears (Tears Naturale) 0 drop EA EYE PRN PRN PRN Reason: Dry Eyes Bisacodyl (Dulcolax) 10 mg PO DAILYPRN PRN PRN Reason: Constipation Calcium Carbonate (Tums) 1,000 mg PO Q4H PRN PRN Reason: Heartburn or Indigestion Dextrose/Water (Dextrose 50%) 25 gm SLOW IVP PRN PRN PRN Reason: Hypoglycemia Enoxaparin Sodium (Lovenox) 40 mg SC 0900 [facility] Famotidine (Pepcid) 20 mg PO BID [facility] Last Admin: 05/23/17 08:27 Dose: 20 mg Glucagon (Glucagon) 1 mg IM PRN PRN PRN Reason: Hypoglycemia Guaifenesin (Robitussin Sf) 200 mg PO Q4H PRN PRN Reason: Cough Hydralazine HCl (Apresoline) 10 mg SLOW IVP Q4H PRN PRN Reason: Systolic BP > 180 Dextrose/Water (D5w) 1,000 mls @ 0 mls/hr IV .Q0M PRN; As Directed PRN Reason: Hypoglycemia Ceftriaxone Sodium 1 gm/ (Syringe 0.4 ml/ Sterile Water) 10 mls @ 120 mls/hr SLOW IVP 2000 [facility] Last Admin: 05/22/17 22:03 Dose: 10 mls Vancomycin HCl 1 gm/ Device 200 mls @ 200 mls/hr IVPB 1100,2300 [facility] Insulin Human Lispro (Humalog) 0 units SC .MILD SLIDING SCALE PRN PRN Reason: Mild Correctional Scale Last Admin: 05/23/17 06:28 Dose: 6 unit Insulin Human Lispro (Humalog) 0 units SC .BEDTIME SLIDING SC PRN PRN Reason: Bedtime Correctional Scale Last Admin: 05/22/17 22:17 Dose: 5 unit Loperamide HCl (Imodium) 2 mg PO PRN PRN PRN Reason: Diarrhea/Loose Stools Loratadine (Claritin) 10 mg PO DAILYPRN PRN PRN Reason: Sinus Symptoms Magnesium Hydroxide (Milk Of Magnesium) 30 ml PO DAILYPRN PRN PRN Reason: Constipation Mineral Oil/White Petrolatum (Eucerin Cream) 0 gm TOP BIDPRN PRN PRN Reason: Dry Skin Miscellaneous Medication (Pharmacy To Dose) 1 each IVPB DAILYPRN PRN PRN Reason: LABS Mometasone Furoate/Formoterol Fumar (Dulera 200 Mcg/5 Mcg Inhaler) 2 puff INH BID-RT [facility] Ondansetron HCl (Zofran Odt) 4 mg PO Q6H PRN PRN Reason: Nausea/Vomiting Ondansetron HCl (Zofran) 4 mg IVP Q6H PRN PRN Reason: Nausea/Vomiting Phenol (Chloraseptic [place] 180 Ml Bot) 0 ml PO PRN PRN PRN Reason: Sore Throat Sodium Chloride ([place] Nasal [place] 0.65%) 0 ml EA NARE QIDPRN PRN PRN Reason: Nasal Congestion Temazepam (Restoril) 15 mg PO HSPRN PRN PRN Reason: Insomnia
[2017-05-23] MEDS: Vancomycin HCl 1 GM in Premix Bag 1 BAG IVPB SCH ×2 (12:27→23:47)
[2017-05-23] MEDS: HYDROcodone/Acetaminophen 5/325 mg Tablet PO PRN (17:45)
[2017-05-23] MEDS: Mometasone/Formoterol 120 PUFF INHALER INH SCH (18:14)
[2017-05-23] MEDS: cefTRIAXone\\ROCEPHIN 1 GM, Syringe 0.4 ML in Sterile Water 9.6 ML SLOW IVP SCH (20:47)
[2017-05-23] MEDS: Enoxaparin Sodium 40 MG/0.4 ML SYRINGE SC SCH (20:48)
[2017-05-24] MEDS: HYDROcodone/Acetaminophen 5/325 mg Tablet PO PRN ×3 (05:08→15:19)
[2017-05-24] MEDS: HumaLOG 300 UNITS/3 ML VIAL SC PRN ×4 (05:09→20:36)
[2017-05-24] MEDS: Mometasone/Formoterol 120 PUFF INHALER INH SCH ×2 (06:53→19:26)
[2017-05-24] MEDS: Famotidine 20 MG TAB PO SCH ×2 (08:00→20:35)
--- NOTE | 2017-05-24 10:40 | PDOC.PN ---
- Subjective Encounter Start Date: 05/24/17 Encounter Start Time: 13:30 Subjective: Patient feeling a little better. Sacral decubitus debrided by surgery. -: No fever. SOB improved. - Objective Resuscitation Status: Resuscitation Status DNI:No Intubation MAR Reviewed: Yes Vital Signs & Weight: Vital Signs (12 hours) Temp Pulse Resp BP Pulse Ox 05/24/17 08:00 98.3 F 85 20 125/65 97 05/24/17 06:53 98 05/24/17 06:51 86 16 97 05/24/17 04:27 98.1 F 93 18 127/68 98 Weight Admit Weight 139 lb 6 oz Weight 139 lb 3 oz I&O: 05/23/17 05/24/17 05/25/17 06:59 06:59 06:59 Intake Total 700 Output Total 200 Balance 500 Result Diagrams: 05/23/17 04:40 05/23/17 04:40 Additional Labs: Accuchecks 05/24/17 05/23/17 05/23/17 04:40 20:10 16:23 POC Glucose 315 H 401 H 371 H 05/23/17 11:51 POC Glucose 427 H Phys Exam - Physical Examination Constitutional: NAD HEENT: moist MMs Neck: no JVD Respiratory: no rales, no rhonchi, wheezing present Cardiovascular: RRR Gastrointestinal: soft, non-tender, positive bowel sounds central stage 3 ulcer/wound with wound vac in place bilateral dry gangrene of toes Neurological: non-focal, moves all 4 limbs Psychiatric: normal affect, A&O x 3 Deviation from normal: sacral wound with dressing Dx/Plan (1) Decubitus ulcer, stage 4 with infection Code(s): L89.94 - PRESSURE ULCER OF UNSPECIFIED SITE, STAGE 4; L08.9 - LOCAL INFECTION OF THE SKIN AND SUBCUTANEOUS TISSUE, UNSP Status: Acute Comment: present on admission, over sacrum, cultures with gram positive cocci and some gram neg rods, on Rocephin and Vanc (2) Acute respiratory failure with hypoxia Code(s): J96.01 - ACUTE RESPIRATORY FAILURE WITH HYPOXIA Status: Resolved Comment: still on 2L NC (3) COPD exacerbation Code(s): J44.1 - CHRONIC OBSTRUCTIVE PULMONARY DISEASE W (ACUTE) EXACERBATION Status: Acute Comment: Duo nebs, abx, steroids (4) Diabetes type 2, uncontrolled Code(s): E11.65 - TYPE 2 DIABETES MELLITUS WITH HYPERGLYCEMIA Status: Chronic (5) BPH (benign prostatic hyperplasia) Code(s): N40.0 - BENIGN PROSTATIC HYPERPLASIA WITHOUT LOWER URINRY TRACT SYMP Status: Chronic (6) CAD (coronary artery disease) Code(s): I25.10 - ATHSCL HEART DISEASE OF [place] CORONARY ARTERY W/O ANG PCTRS Status: Chronic (7) CHF (congestive heart failure) Code(s): I50.9 - HEART FAILURE, UNSPECIFIED Status: Chronic Qualifiers: Congestive heart failure type: diastolic Congestive heart failure chronicity: chronic Qualified Code(s): I50.32 - Chronic diastolic (congestive ) heart failure (8) Cholelithiases Code(s): K80.20 - CALCULUS OF GALLBLADDER W/O CHOLECYSTITIS W/O OBSTRUCTION Status: Chronic (9) Dyslipidemia Code(s): E78.5 - HYPERLIPIDEMIA, UNSPECIFIED Status: Chronic (10) Gangrenous toe Code(s): I96 - GANGRENE, NOT ELSEWHERE CLASSIFIED Status: Chronic (11) Hypertension Code(s): I10 - ESSENTIAL (PRIMARY) HYPERTENSION Status: Chronic (12) Macrocytic anemia Code(s): D53.9 - NUTRITIONAL ANEMIA, UNSPECIFIED Status: Chronic (13) Physical deconditioning Code(s): R53.81 - OTHER MALAISE Status: Chronic (14) Wound, open, abdominal wall, anterior Code(s): S31.109A - UNSP OPN WND ABD WALL, UNSP Q W/O PENET PERIT CAV, INIT Status: Acute Comment: stage 3, wound vac in place - Plan cont current plan of care, continue antibiotics, PT/OT Wound care, surgery consulted, will need placement * . - Discharge Day Encounter end time: 14:00
[2017-05-24] MEDS: Vancomycin HCl 1 GM in Premix Bag 1 BAG IVPB SCH ×2 (12:34→23:25)
--- NOTE | 2017-05-24 12:46 | PQF ---
DATE: 05-24-17 ATTN: DR. GILDA SANCHEZ Please exercise your independent, professional judgment in responding to the clarification form. Clinical indicators are provided on the bottom of this form for your review Please check appropriate box(s): ___X____ I (concur) with the Wound Care findings as stated below. I (do not concur) with the Wound Care findings as stated below. [ ] Pressure Ulcer: (Stage I: Erythema; Stage II: Partial thickness; Stage III : Full thickness; Stage IV: Necrosis to muscle/bone) [ ] Location: POA: [ ] Yes [ ] No[ ] Unable to determine Stage (I to IV): (Left Right Bilateral N/A ) [ ] Gangrene present [ ] Yes [ ] ischemic gangrene [ ] gas gangrene [ ] No [ ] Other diagnosis [ ] Unable to determine In addition, please specify: Present on Admission (POA): [ X ] Yes [ ] No [ ] Unable to determine For continuity of documentation, please document condition throughout progress notes and discharge summary. Thank You. CLINICAL INDICATORS - SIGNS / SYMPTOMS / LABS WCT 03-23-18: ABDOMEN WOUND PRESSURE ULCER STAGE 3 05/23/17- Old dressing removed, 1 pc black intact. Wound cleansed with NS and gauze. Adaptic to wound bed and 1 pc black foam applied. Base of wound depth is 2.5 but inferior wound bed is 1.2. Patient was using a home vac and transferred to hospital vac. packed up old vac before drainage amount could be measured. RISK FACTORS: H&P: PHYSICAL DECONDITIONING, HE DEVELOPED SIGNIFICANT BEDSORE WHILE HE WAS AT [facility] TREATMENTS: WCT AND DISHWASHER BUSSER CONSULT DISHWASHER BUSSER CONSULT 05-23-16: RECOMMEND LILI TID TO PROMOTE WOULD HEALING WOUND CARE CONSULT 05-23-17: Old dressing removed, 1 pc black intact. Wound cleansed with NS and gauze. Adaptic to wound bed and 1 pc black foam applied. Base of wound depth is 2.5 but inferior wound bed is 1.2. Patient was using a home vac and transferred to hospital vac. packed up old vac before drainage amount could be measured. This form is maintained as a part of the permanent medical record) 2014 [employer]. All Rights Reserved CHIQUIS [email or web address] Office: [phone] [facility] MED[facility] CENTERJovita
[2017-05-24] MEDS ORDERED: ISOVUE-370 76%-LOCM 1 ML ONE (13:53)
--- NOTE | 2017-05-24 14:02 | CT ---
CTA OF THE ABDOMEN AND PELVIS WITH BILATERAL LOWER EXTREMITY RUNOFF: INDICATION: Bilateral necrotic toes with claudication and decreased sensation to both lower extremities. TECHNIQUE: Multiple CTA images were obtained of the abdomen and pelvis utilizing IV contrast and 3D reformatted imaging. The examination was performed through the level of the feet bilaterally. Comparisons are made with prior CT of the chest, abdomen, and pelvis dated 04/25/17 and a prior CTA o f the abdomen and pelvis with bilateral lower extremity runoff dated 11/03/14. FINDINGS: The airspace consolidation and loculated right pleural effusion persists from the comparison CT in [facility] of 2017. There is mild left basilar atelectasis. There are numerous gallstones within a contracted gallbladder. No focal hepatic lesion is evident. The spleen, pancreas, and adrenal glands appear within normal li mits. There are stable bilateral renal cysts. There is a left lower quadrant colostomy. There has been some interval healing of the midline abdominal incision. A few small locules of gas a re seen near the base of the wound. A small loculated fluid collection is seen at the base of a woun d near the umbilical region measuring 1.2 cm on image 118 of series 2. Previously seen surgical drain within the left lower quadrant of the abdomen has been removed. The l oculated fluid collection in the left upper quadrant of the abdomen has decreased in size. A small f luid collection remains within the left upper quadrant of the abdomen measuring 5 cm. This was large r and previously measured approximately 8.7 cm on the prior exam. There has been interval development of a left gluteal decubitus ulcer with findings suggesting osteom yelitis of the left sacral margin on image 151 of series 2. The decubitus ulcer measures approximate ly 9.2 in its greatest mediolateral dimensions and 15.8 cm greatest craniocaudad dimensions. There is worsening atherosclerotic disease involving the celiac artery with mild narrowing of the pro ximal course of celiac artery. The common hepatic, left gastric, and splenic arteries appear patent. There is moderate to severe narrowing involving the proximal SMA which has worsened since the prior e xam in 2014. There is moderate narrowing involving the origin and proximal aspect of the single right renal artery . There is some mild atherosclerotic irregularity involving the proximal aspect of the left renal ar freddy. The infrarenal abdominal aortic aneurysm has not appreciably changed in size with its maximal dimensi on measuring up to 3.6 cm. There is some mild narrowing involving the right common iliac artery and right external iliac artery. There is high-grade stenosis involving the right common femoral artery on image 168 of series 2 whi ch has progressed from the prior exam. There is complete occlusion of the distal right common femora l artery just proximal to the bifurcation. There is some reconstitution of flow within portions of t he profunda femoral artery via collaterals. Very scant collateral flow is seen within the [place] rig ht superficial femoral artery. There is some reconstitution of flow seen at the level of the distal right superficial femoral artery through collaterals. No appreciable high-grade stenosis is seen wit hin the right popliteal artery. There is some mild atherosclerotic irregularity involving the right tibioperitoneal trunk. There is 3-vessel runoff to the level of the ankle. Some heterotopic ossification involving the most lateral musculature of the mid right foreleg. There is diffuse musculature atrophy of both lower extremities. The left common iliac artery demonstrates mild atherosclerotic irregularity. There is mild atheroscl erotic irregularity involving the left external iliac artery and left common femoral artery. There i s postsurgical change most consistent with a left fem-pop bypass which is completely occluded. There is complete occlusion of the left superficial femoral artery with scant collateral flow seen within the mid to distal superficial aspects. There is a stent within the distal left superficial femoral a rtery that is completely occluded. Flow is not present in the more distal aspect of the left superfi cial artery and is not reconstituted until the level of the left popliteal artery. There is complete occlusion of the left posterior tibial artery. There is 2-vessel runoff to the level of the ankle v ia the peroneal and anterior tibial artery. There is a left total hip replacement that is stable to the prior exam. There is scattered degenerative and osteoarthritic change. IMPRESSION: 1. Findings consistent with complete occlusion of the left superficial femoral artery. There is rec onstitution of flow at the level of the left popliteal artery via collaterals via the left profunda f emoral artery. There is complete occlusion of the left posterior tibial artery with 2-vessel runoff to the left ankle. 2. The occlusion in the right common femoral artery reconstitutes to the level of the distal right s uperficial femoral artery with 3-vessel runoff to the level of the right ankle. 3. Worsening severe narrowing involving the proximal superior mesenteric artery. 4. Worsening mild narrowing involving the proximal aspect of the celiac artery. 5. Stable infrarenal abdominal aortic aneurysm. 6. Mild narrowing involving the origin of the right renal artery. 7. Persistent loculated right pleural effusion and right lower lobe airspace consolidation. 8. Decrease in size in the peripherally enhancing fluid collection in the left upper quadrant with i nterval removal of the patient's surgical drain. The largest residual fluid collection in the left u pper quadrant of the abdomen measures 5 cm where it previously measured 8.7 cm. 9. Cholelithiasis. 10. Left lower quadrant ostomy. 11. Some interval healing of the midline abdominal wall incision with some residual fluid and gas see n at the base of the wound. The largest collection is seen at the region of the umbilicus measuring up to 1.2 cm. 12. Interval development of a large left gluteal decubitus ulceration extending to the left lateral m argin of the sacrum with osteolysis involving the left lateral margin of the sacrum on image 151 of s eries 2 consistent with osteomyelitis. POS: SHEREE
--- NOTE | 2017-05-24 19:01 | CON ---
DATE OF CONSULTATION: 05/24/2017 DATE OF ADMISSION: 05/22/2017 CONSULTING PHYSICIAN: Dr. Solitario Mcallister. HISTORY OF PRESENT ILLNESS: Mr. Bennett is a 72-year-old gentleman well known to me from multiple prev ious encounters. He has a long history of COPD, coronary artery disease, and peripheral vascular dis ease. He has undergone previous left femoral to posterior tibial in situ vein bypass with very poor runoff to his foot. He also has had multiple interventions of his leg . In his time of his last int ervention, I had told his and the patient that this was all we could do and he could not have an y further procedures as his runoff was so poor. He has presented this time with gangrene of both kanu ves and also involving both feet. This is dry without any infected evidence. He also has a large sa cral decubitus ulcer. Again, unfortunately, the patient has no further revascularization options. PAST MEDICAL HISTORY: 1. Peripheral vascular disease. 2. Carotid stenosis, status post carotid endarterectomy, and repeat carotid endarterectomy with judith y recurrence both times. 3. Diabetes mellitus. 4. Hypertension. 5. Chronic obstructive pulmonary disease - patient has continued to smoke up until his critical illn ess last year. 6. Dyslipidemia. 7. Congestive heart failure. 8. Deconditioning. PAST SURGICAL HISTORY: 1. Hip fusion. 2. Colectomy with colostomy due to perforated gangrenous bowel. 3. Tonsillectomy. 4. Left leg bypass. 5. Carotid endarterectomy with a repeat carotid endarterectomy. SOCIAL HISTORY: He quit smoking during his illness in February, he does not use alcohol or other pushpa gs. ALLERGIES: None. MEDICATIONS: Noted. PHYSICAL EXAMINATION: GENERAL: This is a fairly pleasant gentleman in his usual mental state, resting comfortably in bed. VITAL SIGNS: Temperature is 98.3, pulse is 92 and regular, blood pressure is 125/65. LUNGS: Clear bilaterally. HEART: Rhythm is regular. ABDOMEN: Soft and nontender. EXTREMITIES: As above. VASCULAR: He has palpable carotid, radial, and femoral pulses bilaterally. He has no Doppler signal s in his foot on either side. ASSESSMENT AND PLAN: This is unfortunate 72-year-old gentleman who probably come to above knee amput ation bilaterally. He has no revascularization options remaining at this time.
[2017-05-24] MEDS: Enoxaparin Sodium 40 MG/0.4 ML SYRINGE SC SCH (20:35)
[2017-05-24] MEDS: cefTRIAXone\\ROCEPHIN 1 GM, Syringe 0.4 ML in Sterile Water 9.6 ML SLOW IVP SCH (20:35)
[2017-05-24 22:41] LABS: Vancomycin, Trough 14.3 ug/mL
[2017-05-24] MEDS ORDERED: Lorazepam 2 MG/ML VIAL SLOW IVP SCH (23:00)
[2017-05-25] MEDS: HYDROcodone/Acetaminophen 5/325 mg Tablet PO PRN ×5 (01:20→23:24)
[2017-05-25] MEDS: Mometasone/Formoterol 120 PUFF INHALER INH SCH ×2 (06:03→18:40)
[2017-05-25] MEDS: HumaLOG 300 UNITS/3 ML VIAL SC PRN ×4 (06:40→20:38)
[2017-05-25] MEDS: Famotidine 20 MG TAB PO SCH ×2 (08:06→20:37)
--- NOTE | 2017-05-25 09:08 | CON ---
DATE OF CONSULTATION: 05/24/2017 CHIEF COMPLAINT: Infected sacral decubitus ulcer, gangrenous changes of the bilateral lower extremit ies. HISTORY OF PRESENT ILLNESS: This patient is a chronically ill 72-year-old white male. He is known t o myself since I performed a laparotomy for what proved to be a necrotic left colon with perforation and fecal peritonitis. In spite of his multiple medical problems and comorbidities, he survived that operation. He does have a left-sided colostomy. He is being cared for at home by his and with home health nursing subsequently. He was readmitted to the hospital by the Hospitalist Service domenic cespedes. He is noted to have a progressive infected sacral decubitus ulcer as well as multiple gangren ous lesions on his lower extremities, and I am asked to see him regarding these. Of note, the patien t has had multiple encounters with Dr. Anthony King regarding his vascular status. PAST MEDICAL HISTORY: 1. Obesity. 2. Diabetes mellitus. 3. Tobacco abuse, which was heavy and lasted until his illness in February. 4. Hyperlipidemia. 5. Coronary artery disease. 6. Peripheral vascular disease with bypass and stent placement previously. 7. Coronary artery disease. 8. Chronic obstructive pulmonary disease. 9. Hypertension. 10. Depression. PAST SURGICAL HISTORY: 1. History of Pia's gangrene, requiring surgical treatment in 2003. 2. Left hip replacement in 2013 with repeat operation in 2014. 3. Left carotid endarterectomy in 2010 with re-endarterectomy in 2016. 4. Femoral popliteal artery bypass on left 2014. 5. Prior colon resection. 6. Tonsillectomy. 7. Spine stimulator. 8. Esophageal dilatation. ALLERGIES: No known drug allergies. ADMISSION MEDICATIONS: Please see the medical record. ALLERGIES: No known drug allergies. PERSONAL/SOCIAL HISTORY: He is . is present at bedside. He is retired. He smoked for a long period of time and smoked up until his illness in February. He formerly smoked up to 4 packs of cigarettes per day, and at the time of his most recent hospitalization was still smoking between 1 -2 packs of cigarettes per day. PHYSICAL EXAMINATION: VITAL SIGNS: The patient is afebrile, pulse is 80s and regular, blood pressure 128/64. GENERAL: He is an elderly ill-appearing white male resting in bed. HEAD, EYES, EARS, NOSE, AND THROAT: Unremarkable. NECK: Supple. LUNGS: Clear to auscultation. CARDIAC: Regular rate and rhythm. ABDOMEN: Benign with a functioning left abdominal colostomy. EXTREMITIES: Unable to palpate femoral pulses with difficulty. He has dry gangrene involving all to es of the left foot. About half of the right great toe is involved with dry gangrenous well. He has areas of dry gangrene apparently consistent with a pressure ulcer formation on the lateral aspect of each calf. This is a large area on the right and a small area on the left. BACK: The patient has a foul smelling stage 4 sacral decubitus ulcer. There is amorphous purulent m aterial within the base that is necrotic and needs to be debrided. This is undermined superiorly for at least 5 cm. LABORATORY DATA: Hemoglobin is 10.2 and white blood cell count is 10.6. It was 15.5 when he was adm itted, but is improved with fluids and antibiotics, and basic metabolic panel is essentially normal. Glucose is elevated in the 300-500 range. ASSESSMENT: Patient with infected sacral decubitus ulcer. Plan will be to debride this at bedside a nd initiate wound care. In regard to his areas of dry gangrene, he requires no specific treatment at this time. We will reconsult Dr. Anthony King regarding his vascular status. The patient tells me he is not walking at all, and I suspect he will eventually require amputations. Given gangrenous ch anges in his lower leg, I suspect he will end up requiring above-knee amputations. PROCEDURE NOTE PROCEDURE: Sharp debridement of infected sacral decubitus ulcer. SURGEON: Dr. Mcallister. ANESTHESIA: None. INDICATIONS: As above. PROCEDURE IN DETAIL: The patient was placed in the lateral position on his bed on the medical floor. I sharply dissected and debrided the infected necrotic material. Unfortunately, there were still a couple of patent vessels within this tissue and there was bleeding that began during the debridement . I controlled this initially by clamping a couple of small vessels with cessation. As I debrided a lmost all of the necrotic tissue, I decided too tightly pack the wound with peroxide, moistened Kerli x roll to achieve a tamponade affect and stop the bleeding. Dry gauze dressing was placed externally . Assuming bleeding has stopped. Probably I recommend initiation of wound VAC beginning tomorrow (0 05/25/2017).
[2017-05-25] MEDS: Vancomycin HCl 1 GM in Premix Bag 1 BAG IVPB SCH ×2 (10:26→23:19)
--- NOTE | 2017-05-25 18:28 | PDOC.PN ---
- Subjective Encounter Start Date: 05/25/17 Encounter Start Time: 08:20 Pt seen for followup re: abdo wall wound. Denies chest pain or shortness of breath. - Objective Resuscitation Status: Resuscitation Status DNI:No Intubation MAR Reviewed: Yes Vital Signs & Weight: Vital Signs (12 hours) Temp Pulse Pulse Pulse Resp BP Pulse Ox 05/25/17 12:10 97.9 F 101 H 16 160/80 H 98 05/25/17 08:27 115 H 101 H 05/25/17 08:00 98.1 F 77 16 98 05/25/17 07:32 98.1 F 77 16 128/64 98 Pulse Ox Pulse Ox 05/25/17 12:10 05/25/17 08:27 97 98 05/25/17 08:00 05/25/17 07:32 Weight Admit Weight 139 lb 6 oz Weight 139 lb 3 oz I&O: 05/24/17 05/25/17 05/26/17 06:59 06:59 06:59 Intake Total 700 725 Output Total 200 250 Balance 500 475 Result Diagrams: 05/23/17 04:40 05/23/17 04:40 Additional Labs: Accuchecks 05/25/17 05/25/17 05/25/17 17:40 11:52 04:41 POC Glucose 331 H 373 H 341 H 05/24/17 19:45 POC Glucose 424 H Phys Exam - Physical Examination Constitutional: NAD HEENT: moist MMs Neck: supple Respiratory: clear to auscultation bilateral Cardiovascular: RRR Gastrointestinal: no distention R haro wound Neurological: moves all 4 limbs Psychiatric: normal affect Deviation from normal: Abdo pressure wound, sacral decub ulcer Dx/Plan (1) Wound, open, abdominal wall, anterior Code(s): S31.109A - UNSP OPN WND ABD WALL, UNSP Q W/O PENET PERIT CAV, INIT Status: Acute (2) BPH (benign prostatic hyperplasia) Code(s): N40.0 - BENIGN PROSTATIC HYPERPLASIA WITHOUT LOWER URINRY TRACT SYMP Status: Chronic (3) CAD (coronary artery disease) Code(s): I25.10 - ATHSCL HEART DISEASE OF [place] CORONARY ARTERY W/O ANG PCTRS Status: Chronic (4) Diabetes type 2, uncontrolled Code(s): E11.65 - TYPE 2 DIABETES MELLITUS WITH HYPERGLYCEMIA Status: Chronic (5) Dyslipidemia Code(s): E78.5 - HYPERLIPIDEMIA, UNSPECIFIED Status: Chronic (6) Hypertension Code(s): I10 - ESSENTIAL (PRIMARY) HYPERTENSION Status: Chronic (7) Acute respiratory failure with hypoxia Code(s): J96.01 - ACUTE RESPIRATORY FAILURE WITH HYPOXIA Status: Resolved (8) PVD (peripheral vascular disease) Code(s): I73.9 - PERIPHERAL VASCULAR DISEASE, UNSPECIFIED Status: Chronic - Plan continue antibiotics * . Continue accuchecks, insulin sliding scale. Vascular surgery and general surgery services following. Review of Systems - Review of Systems Respiratory: negative: Cough, Dry, Shortness of Breath, Hemoptysis, SOB with Excertion, Pleuritic Pain, Sputum, Wheezing - Medications/Allergies Allergies/Adverse Reactions: Allergies Allergy/AdvReac Type Severity Reaction Status Date / Time No Known Drug Allergies Allergy Verified 05/24/17 20:29 Medications: Current Medications Acetaminophen (Tylenol) 650 mg PO Q4H PRN PRN Reason: Headache/Fever or Pain Last Admin: 05/23/17 06:31 Dose: 650 mg Hydrocodone Bitart/Acetaminophen ([place] 5/325) 1 tab PO Q4H PRN PRN Reason: Moderate Pain (4-6) Last Admin: 05/25/17 14:32 Dose: 1 tab Al Hydroxide/Mg Hydroxide (Maalox) 15 ml PO Q4H PRN PRN Reason: Heartburn or Indigestion Albuterol/Ipratropium (Duoneb) 3 ml NEB Q4H PRN PRN Reason: SOB &/or Wheezing Albuterol/Ipratropium (Duoneb) 3 ml NEB [id number] [facility] Last Admin: 05/25/17 11:28 Dose: 3 ml Artificial Tears (Tears Naturale) 0 drop EA EYE PRN PRN PRN Reason: Dry Eyes Bisacodyl (Dulcolax) 10 mg PO DAILYPRN PRN PRN Reason: Constipation Calcium Carbonate (Tums) 1,000 mg PO Q4H PRN PRN Reason: Heartburn or Indigestion Dextrose/Water (Dextrose 50%) 25 gm SLOW IVP PRN PRN PRN Reason: Hypoglycemia Enoxaparin Sodium (Lovenox) 40 mg SC 2100 [facility] Last Admin: 05/24/17 20:35 Dose: 40 mg Famotidine (Pepcid) 20 mg PO BID [facility] Last Admin: 05/25/17 08:06 Dose: 20 mg Glucagon (Glucagon) 1 mg IM PRN PRN PRN Reason: Hypoglycemia Guaifenesin (Robitussin Sf) 200 mg PO Q4H PRN PRN Reason: Cough Hydralazine HCl (Apresoline) 10 mg SLOW IVP Q4H PRN PRN Reason: Systolic BP > 180 Dextrose/Water (D5w) 1,000 mls @ 0 mls/hr IV .Q0M PRN; As Directed PRN Reason: Hypoglycemia Ceftriaxone Sodium 1 gm/ (Syringe 0.4 ml/ Sterile Water) 10 mls @ 120 mls/hr SLOW IVP 2000 [facility] Last Admin: 05/24/17 20:35 Dose: 10 mls Vancomycin HCl 1 gm/ Device 200 mls @ 200 mls/hr IVPB 1100,2300 [facility] Last Admin: 05/25/17 10:26 Dose: 200 mls Insulin Human Lispro (Humalog) 0 units SC .MILD SLIDING SCALE PRN PRN Reason: Mild Correctional Scale Last Admin: 05/25/17 17:43 Dose: 5 unit Insulin Human Lispro (Humalog) 0 units SC .BEDTIME SLIDING SC PRN PRN Reason: Bedtime Correctional Scale Last Admin: 05/23/17 20:48 Dose: 5 unit Loperamide HCl (Imodium) 2 mg PO PRN PRN PRN Reason: Diarrhea/Loose Stools Loratadine (Claritin) 10 mg PO DAILYPRN PRN PRN Reason: Sinus Symptoms Magnesium Hydroxide (Milk Of Magnesium) 30 ml PO DAILYPRN PRN PRN Reason: Constipation Mineral Oil/White Petrolatum (Eucerin Cream) 0 gm TOP BIDPRN PRN PRN Reason: Dry Skin Miscellaneous Medication (Pharmacy To Dose) 1 each IVPB DAILYPRN PRN PRN Reason: LABS Mometasone Furoate/Formoterol Fumar (Dulera 200 Mcg/5 Mcg Inhaler) 2 puff INH BID-RT [facility] Last Admin: 05/25/17 06:03 Dose: 2 puff Ondansetron HCl (Zofran Odt) 4 mg PO Q6H PRN PRN Reason: Nausea/Vomiting Ondansetron HCl (Zofran) 4 mg IVP Q6H PRN PRN Reason: Nausea/Vomiting Phenol (Chloraseptic [place] 180 Ml Bot) 0 ml PO PRN PRN PRN Reason: Sore Throat Sodium Chloride ([place] Nasal [place] 0.65%) 0 ml EA NARE QIDPRN PRN PRN Reason: Nasal Congestion Temazepam (Restoril) 15 mg PO HSPRN PRN PRN Reason: Insomnia
[2017-05-25] MEDS: Enoxaparin Sodium 40 MG/0.4 ML SYRINGE SC SCH (20:37)
[2017-05-25] MEDS: cefTRIAXone\\ROCEPHIN 1 GM, Syringe 0.4 ML in Sterile Water 9.6 ML SLOW IVP SCH (23:02)
[2017-05-26] MEDS: HumaLOG 300 UNITS/3 ML VIAL SC PRN ×4 (05:24→20:29)
[2017-05-26] MEDS: Mometasone/Formoterol 120 PUFF INHALER INH SCH ×2 (05:55→19:02)
[2017-05-26] MEDS: Famotidine 20 MG TAB PO SCH ×2 (08:45→20:28)
[2017-05-26] MEDS: HYDROcodone/Acetaminophen 5/325 mg Tablet PO PRN ×3 (08:45→20:27)
[2017-05-26 10:18] LABS: Vancomycin, Trough 14.3 ug/mL
[2017-05-26] MEDS: Vancomycin HCl 1 GM in Premix Bag 1 BAG IVPB SCH ×2 (12:01→23:22)
--- NOTE | 2017-05-26 13:52 | PDOC.PN ---
- Subjective Encounter Start Date: 05/26/17 Encounter Start Time: 10:20 Pt seen for followup re: sacral ulcer. Reports pain is better. - Objective Resuscitation Status: Resuscitation Status DNI:No Intubation Vital Signs & Weight: Vital Signs (12 hours) Temp Pulse Resp BP Pulse Ox 05/26/17 11:54 98.6 F 94 18 175/78 H 05/26/17 11:50 94 20 95 05/26/17 08:00 98.6 F 94 16 05/26/17 07:40 98.6 F 94 16 175/78 H 05/26/17 05:55 97 18 93 L 05/26/17 05:54 97 18 94 L 05/26/17 02:47 98 Weight Admit Weight 139 lb 6 oz Weight 139 lb 3 oz I&O: 05/25/17 05/26/17 05/27/17 06:59 06:59 06:59 Intake Total 725 1830 480 Output Total 250 300 Balance 475 1530 480 Result Diagrams: 05/23/17 04:40 05/23/17 04:40 Additional Labs: Accuchecks 05/26/17 05/25/17 05/25/17 04:44 20:08 17:40 POC Glucose 469 H 277 H 331 H Phys Exam - Physical Examination Constitutional: NAD HEENT: moist MMs Neck: supple Respiratory: clear to auscultation bilateral Cardiovascular: RRR Gastrointestinal: soft Neurological: moves all 4 limbs Psychiatric: normal affect Deviation from normal: sacral dressing Dx/Plan (1) Decubitus ulcer, stage 4 with infection Code(s): L89.94 - PRESSURE ULCER OF UNSPECIFIED SITE, STAGE 4; L08.9 - LOCAL INFECTION OF THE SKIN AND SUBCUTANEOUS TISSUE, UNSP Status: Acute Comment: present on admission, over sacrum, cultures with gram positive cocci and some gram neg rods, on Rocephin and Vanc (2) BPH (benign prostatic hyperplasia) Code(s): N40.0 - BENIGN PROSTATIC HYPERPLASIA WITHOUT LOWER URINRY TRACT SYMP Status: Chronic (3) CAD (coronary artery disease) Code(s): I25.10 - ATHSCL HEART DISEASE OF [place] CORONARY ARTERY W/O ANG PCTRS Status: Chronic (4) Diabetes type 2, uncontrolled Code(s): E11.65 - TYPE 2 DIABETES MELLITUS WITH HYPERGLYCEMIA Status: Chronic (5) Dyslipidemia Code(s): E78.5 - HYPERLIPIDEMIA, UNSPECIFIED Status: Chronic (6) Hypertension Code(s): I10 - ESSENTIAL (PRIMARY) HYPERTENSION Status: Chronic (7) Acute respiratory failure with hypoxia Code(s): J96.01 - ACUTE RESPIRATORY FAILURE WITH HYPOXIA Status: Resolved (8) PVD (peripheral vascular disease) Code(s): I73.9 - PERIPHERAL VASCULAR DISEASE, UNSPECIFIED Status: Chronic - Plan continue antibiotics, PT/OT, out of bed/ambulate * . s/p debridement yesterday. For wound vac. CV surgery following re: peripheral vascular disease. Continue accuchecks, insulin sliding scale. Monitor vital signs, titrate antihypertensives as needed. Review of Systems - Review of Systems Respiratory: negative: Cough, Dry, Shortness of Breath, Hemoptysis, SOB with Excertion, Pleuritic Pain, Sputum, Wheezing Cardiovascular: negative: chest pain, palpitations, orthopnea, paroxysmal nocturnal dyspnea, edema, light headedness - Medications/Allergies Allergies/Adverse Reactions: Allergies Allergy/AdvReac Type Severity Reaction Status Date / Time No Known Drug Allergies Allergy Verified 05/24/17 20:29 Medications: Current Medications Acetaminophen (Tylenol) 650 mg PO Q4H PRN PRN Reason: Headache/Fever or Pain Last Admin: 05/23/17 06:31 Dose: 650 mg Hydrocodone Bitart/Acetaminophen ([place] 5/325) 1 tab PO Q4H PRN PRN Reason: Moderate Pain (4-6) Last Admin: 05/26/17 13:08 Dose: 1 tab Al Hydroxide/Mg Hydroxide (Maalox) 15 ml PO Q4H PRN PRN Reason: Heartburn or Indigestion Albuterol/Ipratropium (Duoneb) 3 ml NEB Q4H PRN PRN Reason: SOB &/or Wheezing Albuterol/Ipratropium (Duoneb) 3 ml NEB [id number] MIKE Last Admin: 05/26/17 11:50 Dose: 3 ml Artificial Tears (Tears Naturale) 0 drop EA EYE PRN PRN PRN Reason: Dry Eyes Bisacodyl (Dulcolax) 10 mg PO DAILYPRN PRN PRN Reason: Constipation Calcium Carbonate (Tums) 1,000 mg PO Q4H PRN PRN Reason: Heartburn or Indigestion Dextrose/Water (Dextrose 50%) 25 gm SLOW IVP PRN PRN PRN Reason: Hypoglycemia Enoxaparin Sodium (Lovenox) 40 mg SC 2100 [facility] Last Admin: 05/25/17 20:37 Dose: 40 mg Famotidine (Pepcid) 20 mg PO BID [facility] Last Admin: 05/26/17 08:45 Dose: 20 mg Glucagon (Glucagon) 1 mg IM PRN PRN PRN Reason: Hypoglycemia Guaifenesin (Robitussin Sf) 200 mg PO Q4H PRN PRN Reason: Cough Hydralazine HCl (Apresoline) 10 mg SLOW IVP Q4H PRN PRN Reason: Systolic BP > 180 Dextrose/Water (D5w) 1,000 mls @ 0 mls/hr IV .Q0M PRN; As Directed PRN Reason: Hypoglycemia Ceftriaxone Sodium 1 gm/ (Syringe 0.4 ml/ Sterile Water) 10 mls @ 120 mls/hr SLOW IVP 2000 [facility] Last Admin: 05/25/17 23:02 Dose: 10 mls Vancomycin HCl 1 gm/ Device 200 mls @ 200 mls/hr IVPB 1100,2300 [facility] Last Admin: 05/26/17 12:01 Dose: 200 mls Insulin Human Lispro (Humalog) 0 units SC .MILD SLIDING SCALE PRN PRN Reason: Mild Correctional Scale Last Admin: 05/26/17 12:00 Dose: 6 unit Insulin Human Lispro (Humalog) 0 units SC .BEDTIME SLIDING SC PRN PRN Reason: Bedtime Correctional Scale Last Admin: 05/25/17 20:38 Dose: 3 unit Loperamide HCl (Imodium) 2 mg PO PRN PRN PRN Reason: Diarrhea/Loose Stools Loratadine (Claritin) 10 mg PO DAILYPRN PRN PRN Reason: Sinus Symptoms Magnesium Hydroxide (Milk Of Magnesium) 30 ml PO DAILYPRN PRN PRN Reason: Constipation Mineral Oil/White Petrolatum (Eucerin Cream) 0 gm TOP BIDPRN PRN PRN Reason: Dry Skin Miscellaneous Medication (Pharmacy To Dose) 1 each IVPB DAILYPRN PRN PRN Reason: LABS Mometasone Furoate/Formoterol Fumar (Dulera 200 Mcg/5 Mcg Inhaler) 2 puff INH BID-RT [facility] Last Admin: 05/26/17 05:55 Dose: 2 puff Ondansetron HCl (Zofran Odt) 4 mg PO Q6H PRN PRN Reason: Nausea/Vomiting Ondansetron HCl (Zofran) 4 mg IVP Q6H PRN PRN Reason: Nausea/Vomiting Phenol (Chloraseptic [place] 180 Ml Bot) 0 ml PO PRN PRN PRN Reason: Sore Throat Sodium Chloride ([place] Nasal [place] 0.65%) 0 ml EA NARE QIDPRN PRN PRN Reason: Nasal Congestion Temazepam (Restoril) 15 mg PO HSPRN PRN PRN Reason: Insomnia
[2017-05-26] MEDS: cefTRIAXone\\ROCEPHIN 1 GM, Syringe 0.4 ML in Sterile Water 9.6 ML SLOW IVP SCH (20:27)
[2017-05-26] MEDS: Enoxaparin Sodium 40 MG/0.4 ML SYRINGE SC SCH (20:28)
[2017-05-26] MEDS: Temazepam 15 MG CAP PO PRN (23:41)
[2017-05-27] MEDS: HYDROcodone/Acetaminophen 5/325 mg Tablet PO PRN ×5 (01:36→21:22)
[2017-05-27] MEDS: HumaLOG 300 UNITS/3 ML VIAL SC PRN ×4 (05:44→21:24)
[2017-05-27] MEDS: Mometasone/Formoterol 120 PUFF INHALER INH SCH ×2 (06:05→19:04)
[2017-05-27] MEDS: Famotidine 20 MG TAB PO SCH ×2 (08:00→21:21)
[2017-05-27] MEDS: traMADol HCl 50 MG TAB PO PRN (10:45)
[2017-05-27] MEDS: Vancomycin HCl 1 GM in Premix Bag 1 BAG IVPB SCH ×2 (10:45→23:55)
--- NOTE | 2017-05-27 13:22 | PDOC.PN ---
- Subjective Encounter Start Date: 05/27/17 Encounter Start Time: 08:20 Pt seen for followup re: sacral decub ulcer. Denies diarrhea. Pain in sacral region. - Objective Resuscitation Status: Resuscitation Status DNI:No Intubation MAR Reviewed: Yes Vital Signs & Weight: Vital Signs (12 hours) Temp Pulse Resp BP Pulse Ox 05/27/17 11:31 101 H 18 95 05/27/17 08:00 98.2 F 106 H 16 94 L 05/27/17 07:26 98.2 F 106 H 16 118/56 L 94 L 05/27/17 06:05 95 16 97 05/27/17 06:04 95 16 97 Weight Admit Weight 139 lb 6 oz Weight 139 lb 3 oz I&O: 05/26/17 05/27/17 05/28/17 06:59 06:59 06:59 Intake Total 1830 2580 Output Total 300 1400 Balance 1530 1180 Result Diagrams: 05/23/17 04:40 05/23/17 04:40 Additional Labs: Accuchecks 05/27/17 05/27/17 05/26/17 11:33 04:22 19:51 POC Glucose 341 H 292 H 284 H 05/26/17 15:56 POC Glucose 329 H Phys Exam - Physical Examination Constitutional: NAD HEENT: moist MMs Neck: supple Respiratory: clear to auscultation bilateral Cardiovascular: RRR Gastrointestinal: soft Neurological: moves all 4 limbs Psychiatric: normal affect Skin: no rash Dx/Plan (1) Decubitus ulcer, stage 4 with infection Code(s): L89.94 - PRESSURE ULCER OF UNSPECIFIED SITE, STAGE 4; L08.9 - LOCAL INFECTION OF THE SKIN AND SUBCUTANEOUS TISSUE, UNSP Status: Acute Comment: present on admission, over sacrum, cultures with gram positive cocci and some gram neg rods, on Rocephin and Vanc (2) BPH (benign prostatic hyperplasia) Code(s): N40.0 - BENIGN PROSTATIC HYPERPLASIA WITHOUT LOWER URINRY TRACT SYMP Status: Chronic (3) CAD (coronary artery disease) Code(s): I25.10 - ATHSCL HEART DISEASE OF [place] CORONARY ARTERY W/O ANG PCTRS Status: Chronic (4) Diabetes type 2, uncontrolled Code(s): E11.65 - TYPE 2 DIABETES MELLITUS WITH HYPERGLYCEMIA Status: Chronic (5) Dyslipidemia Code(s): E78.5 - HYPERLIPIDEMIA, UNSPECIFIED Status: Chronic (6) Hypertension Code(s): I10 - ESSENTIAL (PRIMARY) HYPERTENSION Status: Chronic (7) Acute respiratory failure with hypoxia Code(s): J96.01 - ACUTE RESPIRATORY FAILURE WITH HYPOXIA Status: Resolved (8) PVD (peripheral vascular disease) Code(s): I73.9 - PERIPHERAL VASCULAR DISEASE, UNSPECIFIED Status: Chronic - Plan continue antibiotics, PT/OT, out of bed/ambulate * . Pt has wound vac. Discontinue ceftriaxone, start ciprofloxacin. PRN tramadol for pain. Accuchecks, insulin sliding scale. Consult ID service for consolidation of antibiotics. Review of Systems - Review of Systems Respiratory: negative: Cough, Dry, Shortness of Breath, Hemoptysis, SOB with Excertion, Pleuritic Pain, Sputum, Wheezing Cardiovascular: negative: chest pain, palpitations, orthopnea, paroxysmal nocturnal dyspnea, edema, light headedness Musculoskeletal: Back Pain - Medications/Allergies Allergies/Adverse Reactions: Allergies Allergy/AdvReac Type Severity Reaction Status Date / Time No Known Drug Allergies Allergy Verified 05/24/17 20:29 Medications: Current Medications Acetaminophen (Tylenol) 650 mg PO Q4H PRN PRN Reason: Headache/Fever or Pain Last Admin: 05/23/17 06:31 Dose: 650 mg Hydrocodone Bitart/Acetaminophen ([place] 5/325) 1 tab PO Q4H PRN PRN Reason: Moderate Pain (4-6) Last Admin: 05/27/17 11:45 Dose: 1 tab Al Hydroxide/Mg Hydroxide (Maalox) 15 ml PO Q4H PRN PRN Reason: Heartburn or Indigestion Albuterol/Ipratropium (Duoneb) 3 ml NEB Q4H PRN PRN Reason: SOB &/or Wheezing Albuterol/Ipratropium (Duoneb) 3 ml NEB [id number] [facility] Last Admin: 05/27/17 11:31 Dose: 3 ml Artificial Tears (Tears Naturale) 0 drop EA EYE PRN PRN PRN Reason: Dry Eyes Bisacodyl (Dulcolax) 10 mg PO DAILYPRN PRN PRN Reason: Constipation Calcium Carbonate (Tums) 1,000 mg PO Q4H PRN PRN Reason: Heartburn or Indigestion Dextrose/Water (Dextrose 50%) 25 gm SLOW IVP PRN PRN PRN Reason: Hypoglycemia Enoxaparin Sodium (Lovenox) 40 mg SC 2100 [facility] Last Admin: 05/26/17 20:28 Dose: 40 mg Famotidine (Pepcid) 20 mg PO BID [facility] Last Admin: 05/27/17 08:00 Dose: 20 mg Glucagon (Glucagon) 1 mg IM PRN PRN PRN Reason: Hypoglycemia Guaifenesin (Robitussin Sf) 200 mg PO Q4H PRN PRN Reason: Cough Hydralazine HCl (Apresoline) 10 mg SLOW IVP Q4H PRN PRN Reason: Systolic BP > 180 Dextrose/Water (D5w) 1,000 mls @ 0 mls/hr IV .Q0M PRN; As Directed PRN Reason: Hypoglycemia Vancomycin HCl 1 gm/ Device 200 mls @ 200 mls/hr IVPB 1100,2300 [facility] Last Admin: 05/27/17 10:45 Dose: 200 mls Ciprofloxacin/Dextrose 400 mg/ (Device) 200 mls @ 200 mls/hr IVPB Q12HR [facility] Insulin Human Lispro (Humalog) 0 units SC .MILD SLIDING SCALE PRN PRN Reason: Mild Correctional Scale Last Admin: 05/27/17 11:41 Dose: 5 unit Insulin Human Lispro (Humalog) 0 units SC .BEDTIME SLIDING SC PRN PRN Reason: Bedtime Correctional Scale Last Admin: 05/26/17 20:29 Dose: 3 unit Loperamide HCl (Imodium) 2 mg PO PRN PRN PRN Reason: Diarrhea/Loose Stools Loratadine (Claritin) 10 mg PO DAILYPRN PRN PRN Reason: Sinus Symptoms Magnesium Hydroxide (Milk Of Magnesium) 30 ml PO DAILYPRN PRN PRN Reason: Constipation Mineral Oil/White Petrolatum (Eucerin Cream) 0 gm TOP BIDPRN PRN PRN Reason: Dry Skin Miscellaneous Medication (Pharmacy To Dose) 1 each IVPB DAILYPRN PRN PRN Reason: LABS Mometasone Furoate/Formoterol Fumar (Dulera 200 Mcg/5 Mcg Inhaler) 2 puff INH BID-RT [facility] Last Admin: 05/27/17 06:05 Dose: 2 puff Phenol (Chloraseptic [place] 180 Ml Bot) 0 ml PO PRN PRN PRN Reason: Sore Throat Sodium Chloride ([place] Nasal [place] 0.65%) 0 ml EA NARE QIDPRN PRN PRN Reason: Nasal Congestion Temazepam (Restoril) 15 mg PO HSPRN PRN PRN Reason: Insomnia Last Admin: 05/26/17 23:41 Dose: 15 mg Tramadol HCl (Ultram) 50 mg PO Q6H PRN PRN Reason: Mild-Moderate Pain (1-5) Last Admin: 05/27/17 10:45 Dose: 50 mg
[2017-05-27] MEDS: Enoxaparin Sodium 40 MG/0.4 ML SYRINGE SC SCH (21:22)
[2017-05-27] MEDS: Temazepam 15 MG CAP PO PRN (21:22)
[2017-05-28] MEDS: HYDROcodone/Acetaminophen 5/325 mg Tablet PO PRN ×5 (01:01→23:31)
[2017-05-28] MEDS: traMADol HCl 50 MG TAB PO PRN ×3 (01:24→20:51)
[2017-05-28] MEDS: HumaLOG 300 UNITS/3 ML VIAL SC PRN ×4 (05:13→20:52)
[2017-05-28] MEDS: Mometasone/Formoterol 120 PUFF INHALER INH SCH ×2 (06:52→22:30)
[2017-05-28] MEDS: Famotidine 20 MG TAB PO SCH ×2 (08:24→20:51)
--- NOTE | 2017-05-28 09:40 | PRG ---
DATE OF SERVICE: 05/28/2017 HISTORY OF PRESENT ILLNESS: Mr. Bennett has been in the hospital now for 7 days. I had debrided an in fected sacral decubitus ulcer and a wound VAC was placed a few days ago. 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 He was seen regarding this by Dr. King, who has determined daniel t there are no further revascularization options. Since he clearly had some tissue on his lower legs bilaterally, the only thing that could be done eventually if this becomes problematic (pain or infection), would be to proceed with a bilateral above-knee amputation. When I told this to Mr. Tiny silver, he became visibly distressed and upset. He currently does not require this, but there is a good c gustavo that down the road he will. He has wound VACs on both his abdominal wound and his sacral wound. These are both intact currently. PHYSICAL EXAMINATION: VITAL SIGNS: On examination, he is afebrile, pulse is 78, blood pressure 119/68. ABDOMEN: Benign. His ostomy is well functioning and the VAC is intact. Again, he has a VAC on his sacral decubitus as well. Until this is removed, I cannot reevaluate this. LABORATORY STUDIES: He has had no recent CBC in the past 5 days. His glucose levels remain very hig h and have yet to drop under 300. This certainly impairs wound healing further and efforts should be made to get these under better control. There is nothing further from a surgical standpoint to offer him. He will require a course of antibi otics and wound care and appropriate nutrition and even with all of this his decubitus wound may not heal. Better glucose control would be important in his progress as well. Since he has been afebrile , I am not even certain that a long course of IV antibiotics will be necessary, but I will defer this to Medicine and Infectious Disease. Discharge planning should be initiated as soon as possible, as he clearly will need a level of care that I do think that is being provided at home.
[2017-05-28 11:22] LABS: Vancomycin, Trough 15.8 ug/mL
[2017-05-28] MEDS: Vancomycin HCl 1 GM in Premix Bag 1 BAG IVPB SCH ×2 (11:49→23:30)
--- NOTE | 2017-05-28 14:48 | ADD-PRG ---
ADDENDUM I returned to see Mr. Bennett with the Wound Care team. They are performing wound VAC dressing changes on both of his abdominal wound as well as his sacral wound. His abdominal wound is now over 2 month s old. 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 The wound was examined today and it unfortunately still has tremendous healing to go before it is healed. There is reasonable health y granulation tissue inferiorly. The upper 2/3 of the wound, however, is lined with nonviable slough . I sharply debrided the extensive devitalized tissue. There is no obvious hernia. There is no obv ious infection, but there is extraordinarily little healing that has occurred over the 2 months since his surgery was performed on 03/28/2017. A wound VAC was reapplied. I then examined his sacral wound as the VAC was removed. There again was recognized to be extensive devitalized tissue and an infected tissue. I sharply debrided extensive gangrenous and some more of his somewhat foul smelling tissue. It is undermined superiorly for several centimeters and it is dif ficult to see up there. There appears to be further devitalized tissue inferiorly as well as deeply. I debrided an appropriate amount without getting into any bleeding and the wound VAC will be again reapplied. I would continue to reevaluate this as devitalized tissue becomes apparent. Sharp debrid ement will be necessary intermittently on both wounds. Unfortunately, his body is not making good pr ogress in healing, not his abdominal wound or sacral wound looks good. He has gangrenous tissue on b ilateral lower extremities. The prognosis regarding all of this is unfortunately not good.
--- NOTE | 2017-05-28 15:46 | PDOC.PN ---
- Subjective Encounter Start Date: 05/28/17 Encounter Start Time: 08:00 Pt seen for followup re: sacral wound. Has pain at the wound site. No fevers or chills. - Objective Resuscitation Status: Resuscitation Status DNI:No Intubation MAR Reviewed: Yes Vital Signs & Weight: Vital Signs (12 hours) Temp Pulse Resp BP Pulse Ox 05/28/17 13:14 85 16 98 05/28/17 11:00 97.9 F 85 16 128/70 98 05/28/17 08:00 97.9 F 78 16 119/68 99 05/28/17 06:41 75 14 97 Weight Admit Weight 139 lb 6 oz Weight 139 lb 3 oz I&O: 05/27/17 05/28/17 05/29/17 06:59 06:59 06:59 Intake Total 2580 900 Output Total 1400 150 Balance 1180 750 Result Diagrams: 05/23/17 04:40 05/23/17 04:40 Additional Labs: Accuchecks 05/28/17 05/28/17 05/27/17 11:21 04:52 20:09 POC Glucose 353 H 339 H 389 H 05/27/17 16:10 POC Glucose 347 H Phys Exam - Physical Examination Constitutional: NAD HEENT: moist MMs Neck: no nodes Respiratory: clear to auscultation bilateral Cardiovascular: RRR Gastrointestinal: soft Neurological: moves all 4 limbs Psychiatric: normal affect Deviation from normal: sacral wound vac Dx/Plan (1) Decubitus ulcer, stage 4 with infection Code(s): L89.94 - PRESSURE ULCER OF UNSPECIFIED SITE, STAGE 4; L08.9 - LOCAL INFECTION OF THE SKIN AND SUBCUTANEOUS TISSUE, UNSP Status: Acute Comment: present on admission, over sacrum, cultures with gram positive cocci and some gram neg rods, on Rocephin and Vanc (2) BPH (benign prostatic hyperplasia) Code(s): N40.0 - BENIGN PROSTATIC HYPERPLASIA WITHOUT LOWER URINRY TRACT SYMP Status: Chronic (3) CAD (coronary artery disease) Code(s): I25.10 - ATHSCL HEART DISEASE OF [place] CORONARY ARTERY W/O ANG PCTRS Status: Chronic (4) Diabetes type 2, uncontrolled Code(s): E11.65 - TYPE 2 DIABETES MELLITUS WITH HYPERGLYCEMIA Status: Chronic (5) Dyslipidemia Code(s): E78.5 - HYPERLIPIDEMIA, UNSPECIFIED Status: Chronic (6) Hypertension Code(s): I10 - ESSENTIAL (PRIMARY) HYPERTENSION Status: Chronic (7) Acute respiratory failure with hypoxia Code(s): J96.01 - ACUTE RESPIRATORY FAILURE WITH HYPOXIA Status: Resolved (8) PVD (peripheral vascular disease) Code(s): I73.9 - PERIPHERAL VASCULAR DISEASE, UNSPECIFIED Status: Chronic - Plan continue antibiotics, out of bed/ambulate * . Continue antibiotics as below, wound vac. Accuchecks, insulin sliding scale. Monitor vital signs, titrate antihypertensives as needed. Review of Systems - Review of Systems Constitutional: negative: fever, chills, sweats, weakness, malaise Musculoskeletal: Back Pain - Medications/Allergies Allergies/Adverse Reactions: Allergies Allergy/AdvReac Type Severity Reaction Status Date / Time No Known Drug Allergies Allergy Verified 05/24/17 20:29 Medications: Current Medications Acetaminophen (Tylenol) 650 mg PO Q4H PRN PRN Reason: Headache/Fever or Pain Last Admin: 05/23/17 06:31 Dose: 650 mg Hydrocodone Bitart/Acetaminophen ([place] 5/325) 1 tab PO Q4H PRN PRN Reason: Moderate Pain (4-6) Last Admin: 05/28/17 09:40 Dose: 1 tab Al Hydroxide/Mg Hydroxide (Maalox) 15 ml PO Q4H PRN PRN Reason: Heartburn or Indigestion Albuterol/Ipratropium (Duoneb) 3 ml NEB Q4H PRN PRN Reason: SOB &/or Wheezing Albuterol/Ipratropium (Duoneb) 3 ml NEB [id number] [facility] Last Admin: 05/28/17 13:14 Dose: 3 ml Artificial Tears (Tears Naturale) 0 drop EA EYE PRN PRN PRN Reason: Dry Eyes Bisacodyl (Dulcolax) 10 mg PO DAILYPRN PRN PRN Reason: Constipation Calcium Carbonate (Tums) 1,000 mg PO Q4H PRN PRN Reason: Heartburn or Indigestion Dextrose/Water (Dextrose 50%) 25 gm SLOW IVP PRN PRN PRN Reason: Hypoglycemia Enoxaparin Sodium (Lovenox) 40 mg SC 2100 [facility] Last Admin: 05/27/17 21:22 Dose: 40 mg Famotidine (Pepcid) 20 mg PO BID [facility] Last Admin: 05/28/17 08:24 Dose: 20 mg Glucagon (Glucagon) 1 mg IM PRN PRN PRN Reason: Hypoglycemia Guaifenesin (Robitussin Sf) 200 mg PO Q4H PRN PRN Reason: Cough Hydralazine HCl (Apresoline) 10 mg SLOW IVP Q4H PRN PRN Reason: Systolic BP > 180 Dextrose/Water (D5w) 1,000 mls @ 0 mls/hr IV .Q0M PRN; As Directed PRN Reason: Hypoglycemia Vancomycin HCl 1 gm/ Device 200 mls @ 200 mls/hr IVPB 1100,2300 [facility] Last Admin: 05/28/17 11:49 Dose: 200 mls Ciprofloxacin/Dextrose 400 mg/ (Device) 200 mls @ 200 mls/hr IVPB 0200,1400 [facility] Last Admin: 05/28/17 15:00 Dose: 200 mls Insulin Human Lispro (Humalog) 0 units SC .MILD SLIDING SCALE PRN PRN Reason: Mild Correctional Scale Last Admin: 05/28/17 11:50 Dose: 6 unit Insulin Human Lispro (Humalog) 0 units SC .BEDTIME SLIDING SC PRN PRN Reason: Bedtime Correctional Scale Last Admin: 05/27/17 21:24 Dose: 5 unit Loperamide HCl (Imodium) 2 mg PO PRN PRN PRN Reason: Diarrhea/Loose Stools Loratadine (Claritin) 10 mg PO DAILYPRN PRN PRN Reason: Sinus Symptoms Magnesium Hydroxide (Milk Of Magnesium) 30 ml PO DAILYPRN PRN PRN Reason: Constipation Mineral Oil/White Petrolatum (Eucerin Cream) 0 gm TOP BIDPRN PRN PRN Reason: Dry Skin Miscellaneous Medication (Pharmacy To Dose) 1 each IVPB DAILYPRN PRN PRN Reason: LABS Mometasone Furoate/Formoterol Fumar (Dulera 200 Mcg/5 Mcg Inhaler) 2 puff INH BID-RT [facility] Last Admin: 05/28/17 06:52 Dose: 2 puff Phenol (Chloraseptic [place] 180 Ml Bot) 0 ml PO PRN PRN PRN Reason: Sore Throat Sodium Chloride ([place] Nasal [place] 0.65%) 0 ml EA NARE QIDPRN PRN PRN Reason: Nasal Congestion Temazepam (Restoril) 15 mg PO HSPRN PRN PRN Reason: Insomnia Last Admin: 05/27/17 21:22 Dose: 15 mg Tramadol HCl (Ultram) 50 mg PO Q6H PRN PRN Reason: Mild-Moderate Pain (1-5) Last Admin: 05/28/17 08:22 Dose: 50 mg
--- NOTE | 2017-05-28 20:11 | CON ---
DATE OF CONSULTATION: 05/28/2017 REASON FOR CONSULTATION: Decubitus ulcers and request to manage antimicrobial regimen. HISTORY OF PRESENT ILLNESS: A 72-year-old gentleman who has a history of peripheral vascular disease , type 2 diabetes, hypertension, COPD and coronary disease, who was admitted at the end of 2017 with pneumonia, ended up developing a cardiac arrest and ischemic bowel, which led to laparotomy, colostom y and partial resection of sigmoid left colon. He went to a long-term acute care facility and develo ped a presacral ulcer at [place], left the area and was back in the hospital and then was transferred to [facility], discharged home and may have had a little bit of temperature initiall y, then he had some respiratory symptoms, dyspnea with worsening nonproductive cough, ambulance broug ht him to the hospital. He was admitted and found to be wheezing and some hypoxemia. He was given S matthew-Medrol and inhalers. He was seen by General Surgery, Dr. Mcallister, had some debridement of his ul cerated area in the presacral region. Currently, he is awake. He is oriented and pleasant. He cici es any headaches. No visual symptoms, sore throat, odynophagia, dysphagia, and no more dyspnea. Cou gh is less, still wheezing a little bit, no back pain. His appetite is good. He has no abdominal pa in and he is voiding spontaneously, has a midline in the left upper extremity. PAST MEDICAL HISTORY: Peripheral vascular disease; diabetes mellitus type 2; hypertension; COPD; dys lipidemia; coronary artery disease; previous cardiac arrest, which led to ischemic bowel and requirem ent for a partial resection and colostomy; sepsis with hypotension, which led to gangrene of the dist al right and left feet, has other areas of gangrene as well in the anterior thighs. Angiogram did no t show any areas that would be amenable to revascularization, now decubitus ulceration presacral regis on, stage 4. PAST SURGICAL HISTORY: Includes what we mentioned above, previous bypass graft, left leg. SOCIAL HISTORY: Had been living at home. Former smoker, quit just about a year ago. FAMILY HISTORY: Diabetes and hypertension. ALLERGIES: None. CURRENT MEDICATION LIST: Includes Tylenol, [place], Maalox, DuoNeb, Tears Naturale, ciprofloxacin intr avenously, Lovenox, Pepcid, glucagon, Apresoline, Humalog insulin, and vancomycin. PHYSICAL EXAMINATION: VITAL SIGNS: T-max 98.3, blood pressure 120/70, pulse 85, respirations 16, O2 saturation 98% on 2 li ters nasal cannula. SKIN: Shows the ulcerated area of the left gluteal region with say about 40% areas of necrosis at th e basis and 60% granulation tissue. There is some erythema around it, mostly maceration from the dec ubitus, and then he has the abdominal area, which appears well in one end but the mid superior portio n has yellow tissue at the base. The right first toe has a distal area of dry gangrene, likewise the entire left first toe and the left second, third, fourth, and fifth toes have areas of partial gangr javi. He has an extensive area of ulcerative gangrenous area in the anterior aspect of the left thigh , measuring 12 cm. The left heel ulcerated area is unstageable. There is a left calf region with ne crotic eschar as well. The midline is in place. GENERAL: The patient is awake. HEENT: Ocular movements are conjugate. Oral cavity is not abnormal. NECK: Supple. LUNGS: Symmetric air entry with expiratory wheezing. HEART: S1 and S2, regular rate. ABDOMEN: Soft, flat, not distended. He is voiding spontaneously with no bladder distention. EXTREMITIES: He is able to move the extremities on command. LABORATORY DATA: Sodium 135, creatinine 0.84. Liver profile is normal. Albumin is 2.9. BNP is 208 . White cell count is down from 15 to 10.6, hemoglobin 10.2, and platelets 415. We have a chest x-ray with persistent pleural and parenchymal changes in the right side. ASSESSMENT: Type 2 diabetes; chronic smoking; peripheral vascular disease; recent cardiac arrest, wh ich led to ischemic bowel, which required partial resection of bowel with colostomy placement. He al so developed distal areas of dry gangrene in the right and left feet and anterior portions of right t high and left calf region, and then he developed a decubitus ulcer. DISCUSSION: The decubitus ulcer is not fully stageable at this time, but at least is a stage III, pr obably IV. There is a large area of necrosis at the center superior aspect on the left side. He alyson l continue to require complex wound care and may require further sharp debridement of those areas. A ntimicrobial therapy has been started and Cipro and vancomycin seems to be adequate for the microbiol ogy. Duration of therapy will depend on the stage of the lesion and possible the presence of osteomy elitis, may need to order a CT of pelvis to evaluate the bone or an MRI of the pelvis to evaluate the sacrum initial areas. Continue the current regimen as is.
[2017-05-28] MEDS: Enoxaparin Sodium 40 MG/0.4 ML SYRINGE SC SCH (20:51)
[2017-05-28] MEDS: Temazepam 15 MG CAP PO PRN (23:31)
[2017-05-29] MEDS: traMADol HCl 50 MG TAB PO PRN ×4 (04:09→18:22)
[2017-05-29] MEDS: HYDROcodone/Acetaminophen 5/325 mg Tablet PO PRN ×5 (04:10→21:39)
[2017-05-29] MEDS: HumaLOG 300 UNITS/3 ML VIAL SC PRN ×4 (05:53→21:42)
[2017-05-29] MEDS: Mometasone/Formoterol 120 PUFF INHALER INH SCH ×2 (06:56→18:47)
[2017-05-29] MEDS: Famotidine 20 MG TAB PO SCH ×2 (08:19→21:39)
[2017-05-29] MEDS: Vancomycin HCl 1 GM in Premix Bag 1 BAG IVPB SCH ×2 (10:29→23:14)
--- NOTE | 2017-05-29 17:41 | PDOC.PN ---
- Subjective Encounter Start Date: 05/29/17 Encounter Start Time: 09:20 Pt seen for followup re: sacral decub ulcer. Pain still+, but better. - Objective Resuscitation Status: Resuscitation Status DNI:No Intubation MAR Reviewed: Yes Vital Signs & Weight: Vital Signs (12 hours) Temp Pulse Resp BP Pulse Ox 05/29/17 08:00 98.3 F 94 24 H 110/61 99 05/29/17 06:51 79 20 98 Weight Admit Weight 139 lb 6 oz Weight 139 lb 3 oz I&O: 05/28/17 05/29/17 05/30/17 06:59 06:59 06:59 Intake Total 162 658 8530 Output Total 150 150 300 Balance 750 750 900 Result Diagrams: 05/23/17 04:40 05/23/17 04:40 Additional Labs: Accuchecks 05/29/17 05/29/17 05/28/17 11:39 04:43 20:08 POC Glucose 349 H 299 H 321 H Phys Exam - Physical Examination Constitutional: NAD HEENT: moist MMs Neck: supple Respiratory: clear to auscultation bilateral Cardiovascular: RRR Neurological: moves all 4 limbs Psychiatric: normal affect Deviation from normal: Sacral wound vac+ Dx/Plan (1) Decubitus ulcer, stage 4 with infection Code(s): L89.94 - PRESSURE ULCER OF UNSPECIFIED SITE, STAGE 4; L08.9 - LOCAL INFECTION OF THE SKIN AND SUBCUTANEOUS TISSUE, UNSP Status: Acute Comment: present on admission, over sacrum, cultures with gram positive cocci and some gram neg rods, on Rocephin and Vanc (2) BPH (benign prostatic hyperplasia) Code(s): N40.0 - BENIGN PROSTATIC HYPERPLASIA WITHOUT LOWER URINRY TRACT SYMP Status: Chronic (3) CAD (coronary artery disease) Code(s): I25.10 - ATHSCL HEART DISEASE OF [place] CORONARY ARTERY W/O ANG PCTRS Status: Chronic (4) Diabetes type 2, uncontrolled Code(s): E11.65 - TYPE 2 DIABETES MELLITUS WITH HYPERGLYCEMIA Status: Chronic (5) Dyslipidemia Code(s): E78.5 - HYPERLIPIDEMIA, UNSPECIFIED Status: Chronic (6) Hypertension Code(s): I10 - ESSENTIAL (PRIMARY) HYPERTENSION Status: Chronic (7) Acute respiratory failure with hypoxia Code(s): J96.01 - ACUTE RESPIRATORY FAILURE WITH HYPOXIA Status: Resolved (8) PVD (peripheral vascular disease) Code(s): I73.9 - PERIPHERAL VASCULAR DISEASE, UNSPECIFIED Status: Chronic - Plan plan discussed w/ family, continue antibiotics, PT/OT, out of bed/ambulate * . Awaiting CV surgery input. Will continue antibiotics per ID service recommendations. Review of Systems - Review of Systems Constitutional: negative: fever, chills, sweats, weakness, malaise Musculoskeletal: Back Pain - Medications/Allergies Allergies/Adverse Reactions: Allergies Allergy/AdvReac Type Severity Reaction Status Date / Time No Known Drug Allergies Allergy Verified 05/24/17 20:29 Medications: Current Medications Acetaminophen (Tylenol) 650 mg PO Q4H PRN PRN Reason: Headache/Fever or Pain Last Admin: 05/23/17 06:31 Dose: 650 mg Hydrocodone Bitart/Acetaminophen ([place] 5/325) 1 tab PO Q4H PRN PRN Reason: Moderate Pain (4-6) Last Admin: 05/29/17 16:20 Dose: 1 tab Al Hydroxide/Mg Hydroxide (Maalox) 15 ml PO Q4H PRN PRN Reason: Heartburn or Indigestion Albuterol/Ipratropium (Duoneb) 3 ml NEB Q4H PRN PRN Reason: SOB &/or Wheezing Albuterol/Ipratropium (Duoneb) 3 ml NEB [id number] [facility] Last Admin: 05/29/17 15:43 Dose: Not Given Artificial Tears (Tears Naturale) 0 drop EA EYE PRN PRN PRN Reason: Dry Eyes Bisacodyl (Dulcolax) 10 mg PO DAILYPRN PRN PRN Reason: Constipation Calcium Carbonate (Tums) 1,000 mg PO Q4H PRN PRN Reason: Heartburn or Indigestion Dextrose/Water (Dextrose 50%) 25 gm SLOW IVP PRN PRN PRN Reason: Hypoglycemia Enoxaparin Sodium (Lovenox) 40 mg SC 2100 [facility] Last Admin: 05/28/17 20:51 Dose: 40 mg Famotidine (Pepcid) 20 mg PO BID [facility] Last Admin: 05/29/17 08:19 Dose: 20 mg Glucagon (Glucagon) 1 mg IM PRN PRN PRN Reason: Hypoglycemia Guaifenesin (Robitussin Sf) 200 mg PO Q4H PRN PRN Reason: Cough Hydralazine HCl (Apresoline) 10 mg SLOW IVP Q4H PRN PRN Reason: Systolic BP > 180 Dextrose/Water (D5w) 1,000 mls @ 0 mls/hr IV .Q0M PRN; As Directed PRN Reason: Hypoglycemia Vancomycin HCl 1 gm/ Device 200 mls @ 200 mls/hr IVPB 1100,2300 [facility] Last Admin: 05/29/17 10:29 Dose: 200 mls Ciprofloxacin/Dextrose 400 mg/ (Device) 200 mls @ 200 mls/hr IVPB 0200,1400 [facility] Last Admin: 05/29/17 14:03 Dose: 200 mls Insulin Human Lispro (Humalog) 0 units SC .MILD SLIDING SCALE PRN PRN Reason: Mild Correctional Scale Last Admin: 05/29/17 17:13 Dose: 5 unit Insulin Human Lispro (Humalog) 0 units SC .BEDTIME SLIDING SC PRN PRN Reason: Bedtime Correctional Scale Last Admin: 05/28/17 20:52 Dose: 4 unit Loperamide HCl (Imodium) 2 mg PO PRN PRN PRN Reason: Diarrhea/Loose Stools Loratadine (Claritin) 10 mg PO DAILYPRN PRN PRN Reason: Sinus Symptoms Magnesium Hydroxide (Milk Of Magnesium) 30 ml PO DAILYPRN PRN PRN Reason: Constipation Mineral Oil/White Petrolatum (Eucerin Cream) 0 gm TOP BIDPRN PRN PRN Reason: Dry Skin Miscellaneous Medication (Pharmacy To Dose) 1 each IVPB DAILYPRN PRN PRN Reason: LABS Mometasone Furoate/Formoterol Fumar (Dulera 200 Mcg/5 Mcg Inhaler) 2 puff INH BID-RT [facility] Last Admin: 05/29/17 06:56 Dose: 2 puff Phenol (Chloraseptic [place] 180 Ml Bot) 0 ml PO PRN PRN PRN Reason: Sore Throat Sodium Chloride ([place] Nasal [place] 0.65%) 0 ml EA NARE QIDPRN PRN PRN Reason: Nasal Congestion Temazepam (Restoril) 15 mg PO HSPRN PRN PRN Reason: Insomnia Last Admin: 05/28/17 23:31 Dose: 15 mg Tramadol HCl (Ultram) 50 mg PO Q4H PRN PRN Reason: Mild-Moderate Pain (1-5) Last Admin: 05/29/17 14:03 Dose: 50 mg
[2017-05-29] MEDS: Temazepam 15 MG CAP PO PRN (21:39)
[2017-05-29] MEDS: Enoxaparin Sodium 40 MG/0.4 ML SYRINGE SC SCH (21:39)
[2017-05-30] MEDS: HumaLOG 300 UNITS/3 ML VIAL SC PRN ×4 (04:34→20:16)
[2017-05-30] MEDS: HYDROcodone/Acetaminophen 5/325 mg Tablet PO PRN ×3 (04:34→20:17)
[2017-05-30] MEDS: Mometasone/Formoterol 120 PUFF INHALER INH SCH ×2 (07:05→18:57)
[2017-05-30] MEDS: Famotidine 20 MG TAB PO SCH ×2 (09:29→20:16)
[2017-05-30] MEDS: traMADol HCl 50 MG TAB PO PRN ×3 (09:35→23:32)
[2017-05-30] MEDS: Vancomycin HCl 1 GM in Premix Bag 1 BAG IVPB SCH ×2 (12:29→23:29)
--- NOTE | 2017-05-30 13:38 | PRG ---
DATE OF SERVICE: 05/30/2017 HISTORY OF PRESENT ILLNESS: Mr. Bennett remains here in the hospital following an admission for infect ed sacral decubitus ulcer. Today, his VAC dressing change on his sacrum and on his abdomen were lesli epsinosa and I evaluated the wounds and debrided both with them. His tells me that he is doing some minimal standing and transferring currently. He tells me he is eating well and his ostomy is functio louie well. PHYSICAL EXAMINATION: VITAL SIGNS: He is afebrile, pulse is 73 to 106. ABDOMEN: Benign. His abdominal wound remains lined almost entirely with nonviable tissue and slough . I again sharply debrided extensively within the wound, removing old PDS suture and nonviable tissu e. No bleeding was ever encountered. A VAC dressing will be reapplied. On the sacrum, I also again sharply debrided devitalized tissue. There is no foul smell. There is e xtensive undermining and limited viable tissue. We will again place the Instill VAC onto it to irrig ate the wound along with suction. I will reevaluate his wounds in a couple of days to see if further debridement is again necessary.
--- NOTE | 2017-05-30 13:45 | PDOC.PN ---
- Subjective Encounter Start Date: 05/30/17 Encounter Start Time: 09:00 Pt seen for followup re: sacral decub ulcer. On and off pain at the sacral area , otherwise no complaints. - Objective Resuscitation Status: Resuscitation Status DNI:No Intubation MAR Reviewed: Yes Vital Signs & Weight: Vital Signs (12 hours) Temp Pulse Resp BP Pulse Ox 05/30/17 08:00 97.6 F 106 H 16 110/48 L 93 L 05/30/17 07:05 73 18 94 L 05/30/17 07:03 73 18 94 L Weight Admit Weight 139 lb 6 oz Weight 139 lb 3 oz I&O: 05/29/17 05/30/17 05/31/17 06:59 06:59 06:59 Intake Total 900 1740 480 Output Total 150 300 Balance 750 1440 480 Result Diagrams: 05/23/17 04:40 05/23/17 04:40 Additional Labs: Accuchecks 05/30/17 05/30/17 05/29/17 11:27 04:29 19:49 POC Glucose 401 H 248 H 264 H 05/29/17 16:25 POC Glucose 342 H Phys Exam - Physical Examination Constitutional: NAD HEENT: moist MMs Neck: supple Respiratory: clear to auscultation bilateral Cardiovascular: RRR Gastrointestinal: soft Neurological: moves all 4 limbs Psychiatric: normal affect Deviation from normal: sacral wound vac Dx/Plan (1) Decubitus ulcer, stage 4 with infection Code(s): L89.94 - PRESSURE ULCER OF UNSPECIFIED SITE, STAGE 4; L08.9 - LOCAL INFECTION OF THE SKIN AND SUBCUTANEOUS TISSUE, UNSP Status: Acute Comment: present on admission, over sacrum, cultures with gram positive cocci and some gram neg rods, on Rocephin and Vanc (2) BPH (benign prostatic hyperplasia) Code(s): N40.0 - BENIGN PROSTATIC HYPERPLASIA WITHOUT LOWER URINRY TRACT SYMP Status: Chronic (3) CAD (coronary artery disease) Code(s): I25.10 - ATHSCL HEART DISEASE OF [place] CORONARY ARTERY W/O ANG PCTRS Status: Chronic (4) Diabetes type 2, uncontrolled Code(s): E11.65 - TYPE 2 DIABETES MELLITUS WITH HYPERGLYCEMIA Status: Chronic (5) Dyslipidemia Code(s): E78.5 - HYPERLIPIDEMIA, UNSPECIFIED Status: Chronic (6) Hypertension Code(s): I10 - ESSENTIAL (PRIMARY) HYPERTENSION Status: Chronic (7) Acute respiratory failure with hypoxia Code(s): J96.01 - ACUTE RESPIRATORY FAILURE WITH HYPOXIA Status: Resolved (8) PVD (peripheral vascular disease) Code(s): I73.9 - PERIPHERAL VASCULAR DISEASE, UNSPECIFIED Status: Chronic - Plan continue antibiotics * . Discussed with pt and re; imaging to r/o osteomyelitis. Pt does nto want to have an MRI. D/w radiologist, he does not recommend CT scan . Will revisit the issue. Review of Systems - Review of Systems Respiratory: negative: Cough, Dry, Shortness of Breath, Hemoptysis, SOB with Excertion, Pleuritic Pain, Sputum, Wheezing Cardiovascular: negative: chest pain, palpitations, orthopnea, paroxysmal nocturnal dyspnea, edema, light headedness Musculoskeletal: Back Pain - Medications/Allergies Allergies/Adverse Reactions: Allergies Allergy/AdvReac Type Severity Reaction Status Date / Time No Known Drug Allergies Allergy Verified 05/24/17 20:29 Medications: Current Medications Acetaminophen (Tylenol) 650 mg PO Q4H PRN PRN Reason: Headache/Fever or Pain Last Admin: 05/23/17 06:31 Dose: 650 mg Hydrocodone Bitart/Acetaminophen ([place] 5/325) 1 tab PO Q4H PRN PRN Reason: Moderate Pain (4-6) Last Admin: 05/30/17 13:02 Dose: 1 tab Al Hydroxide/Mg Hydroxide (Maalox) 15 ml PO Q4H PRN PRN Reason: Heartburn or Indigestion Albuterol/Ipratropium (Duoneb) 3 ml NEB Q4H PRN PRN Reason: SOB &/or Wheezing Albuterol/Ipratropium (Duoneb) 3 ml NEB [id number] [facility] Last Admin: 05/30/17 07:03 Dose: 3 ml Artificial Tears (Tears Naturale) 0 drop EA EYE PRN PRN PRN Reason: Dry Eyes Bisacodyl (Dulcolax) 10 mg PO DAILYPRN PRN PRN Reason: Constipation Calcium Carbonate (Tums) 1,000 mg PO Q4H PRN PRN Reason: Heartburn or Indigestion Dextrose/Water (Dextrose 50%) 25 gm SLOW IVP PRN PRN PRN Reason: Hypoglycemia Enoxaparin Sodium (Lovenox) 40 mg SC 2100 [facility] Last Admin: 05/29/17 21:39 Dose: 40 mg Famotidine (Pepcid) 20 mg PO BID [facility] Last Admin: 05/30/17 09:29 Dose: 20 mg Glucagon (Glucagon) 1 mg IM PRN PRN PRN Reason: Hypoglycemia Guaifenesin (Robitussin Sf) 200 mg PO Q4H PRN PRN Reason: Cough Hydralazine HCl (Apresoline) 10 mg SLOW IVP Q4H PRN PRN Reason: Systolic BP > 180 Dextrose/Water (D5w) 1,000 mls @ 0 mls/hr IV .Q0M PRN; As Directed PRN Reason: Hypoglycemia Vancomycin HCl 1 gm/ Device 200 mls @ 200 mls/hr IVPB 1100,2300 [facility] Last Admin: 05/30/17 12:29 Dose: 200 mls Ciprofloxacin/Dextrose 400 mg/ (Device) 200 mls @ 200 mls/hr IVPB 0200,1400 [facility] Last Admin: 05/30/17 01:20 Dose: 200 mls Insulin Human Lispro (Humalog) 0 units SC .MILD SLIDING SCALE PRN PRN Reason: Mild Correctional Scale Last Admin: 05/30/17 12:33 Dose: 6 unit Insulin Human Lispro (Humalog) 0 units SC .BEDTIME SLIDING SC PRN PRN Reason: Bedtime Correctional Scale Last Admin: 05/29/17 21:42 Dose: 3 unit Loperamide HCl (Imodium) 2 mg PO PRN PRN PRN Reason: Diarrhea/Loose Stools Loratadine (Claritin) 10 mg PO DAILYPRN PRN PRN Reason: Sinus Symptoms Magnesium Hydroxide (Milk Of Magnesium) 30 ml PO DAILYPRN PRN PRN Reason: Constipation Mineral Oil/White Petrolatum (Eucerin Cream) 0 gm TOP BIDPRN PRN PRN Reason: Dry Skin Miscellaneous Medication (Pharmacy To Dose) 1 each IVPB DAILYPRN PRN PRN Reason: LABS Mometasone Furoate/Formoterol Fumar (Dulera 200 Mcg/5 Mcg Inhaler) 2 puff INH BID-RT [facility] Last Admin: 05/30/17 07:05 Dose: 2 puff Phenol (Chloraseptic [place] 180 Ml Bot) 0 ml PO PRN PRN PRN Reason: Sore Throat Sodium Chloride ([place] Nasal [place] 0.65%) 0 ml EA NARE QIDPRN PRN PRN Reason: Nasal Congestion Temazepam (Restoril) 15 mg PO HSPRN PRN PRN Reason: Insomnia Last Admin: 05/29/17 21:39 Dose: 15 mg Tramadol HCl (Ultram) 50 mg PO Q4H PRN PRN Reason: Mild-Moderate Pain (1-5) Last Admin: 05/30/17 09:35 Dose: 50 mg
[2017-05-30 14:51] VITALS: BMI 21.1
[2017-05-30] MEDS: Enoxaparin Sodium 40 MG/0.4 ML SYRINGE SC SCH (20:16)
[2017-05-30 22:58] LABS: Vancomycin, Trough 17.9 ug/mL
[2017-05-30] MEDS: Temazepam 15 MG CAP PO PRN (23:32)
[2017-05-31] MEDS: HumaLOG 300 UNITS/3 ML VIAL SC PRN ×4 (05:41→21:28)
[2017-05-31] MEDS: Mometasone/Formoterol 120 PUFF INHALER INH SCH ×2 (07:17→18:57)
[2017-05-31] MEDS: Famotidine 20 MG TAB PO SCH ×2 (08:11→21:26)
[2017-05-31] MEDS: HYDROcodone/Acetaminophen 5/325 mg Tablet PO PRN ×3 (08:16→21:25)
[2017-05-31] MEDS: Vancomycin HCl 1 GM in Premix Bag 1 BAG IVPB SCH ×2 (12:00→22:44)
--- NOTE | 2017-05-31 14:20 | PDOC.PN ---
- Subjective Encounter Start Date: 05/31/17 Encounter Start Time: 08:00 Pt seen for followup re: sacral decub ulcer. No complaints today. - Objective Resuscitation Status: Resuscitation Status DNI:No Intubation MAR Reviewed: Yes Vital Signs & Weight: Vital Signs (12 hours) Temp Pulse Resp BP Pulse Ox 05/31/17 13:15 85 16 05/31/17 09:29 98.7 F 85 16 98 05/31/17 08:00 98.7 F 85 16 114/63 98 05/31/17 07:17 86 16 05/31/17 07:05 100 05/31/17 07:04 86 16 Weight Admit Weight 139 lb 6 oz Weight 139 lb I&O: 05/30/17 05/31/17 06/01/17 06:59 06:59 06:59 Intake Total 1840 2980 Output Total 300 1850 Balance 1540 1130 Result Diagrams: 05/23/17 04:40 05/23/17 04:40 Additional Labs: Accuchecks 05/31/17 05/31/17 05/30/17 11:44 05:11 19:38 POC Glucose 318 H 312 H 393 H 05/30/17 16:24 POC Glucose 286 H Phys Exam - Physical Examination Constitutional: NAD HEENT: moist MMs Neck: supple Respiratory: clear to auscultation bilateral Cardiovascular: RRR Gastrointestinal: soft Neurological: moves all 4 limbs Psychiatric: normal affect Skin: no rash Dx/Plan (1) Decubitus ulcer, stage 4 with infection Code(s): L89.94 - PRESSURE ULCER OF UNSPECIFIED SITE, STAGE 4; L08.9 - LOCAL INFECTION OF THE SKIN AND SUBCUTANEOUS TISSUE, UNSP Status: Acute Comment: present on admission, over sacrum, cultures with gram positive cocci and some gram neg rods, on Rocephin and Vanc (2) BPH (benign prostatic hyperplasia) Code(s): N40.0 - BENIGN PROSTATIC HYPERPLASIA WITHOUT LOWER URINRY TRACT SYMP Status: Chronic (3) CAD (coronary artery disease) Code(s): I25.10 - ATHSCL HEART DISEASE OF [place] CORONARY ARTERY W/O ANG PCTRS Status: Chronic (4) Diabetes type 2, uncontrolled Code(s): E11.65 - TYPE 2 DIABETES MELLITUS WITH HYPERGLYCEMIA Status: Chronic (5) Dyslipidemia Code(s): E78.5 - HYPERLIPIDEMIA, UNSPECIFIED Status: Chronic (6) Hypertension Code(s): I10 - ESSENTIAL (PRIMARY) HYPERTENSION Status: Chronic (7) Acute respiratory failure with hypoxia Code(s): J96.01 - ACUTE RESPIRATORY FAILURE WITH HYPOXIA Status: Resolved (8) PVD (peripheral vascular disease) Code(s): I73.9 - PERIPHERAL VASCULAR DISEASE, UNSPECIFIED Status: Chronic - Plan plan discussed w/ family, continue antibiotics * . Discussed again re: MRI. Pt does not want MRI of pelvis. Continue antibiotics, wound vac. Discharge plan is to home with home health. Review of Systems - Review of Systems Respiratory: negative: Cough, Dry, Shortness of Breath, Hemoptysis, SOB with Excertion, Pleuritic Pain, Sputum, Wheezing Cardiovascular: negative: chest pain, palpitations, orthopnea, paroxysmal nocturnal dyspnea, edema, light headedness - Medications/Allergies Allergies/Adverse Reactions: Allergies Allergy/AdvReac Type Severity Reaction Status Date / Time No Known Drug Allergies Allergy Verified 05/24/17 20:29 Medications: Current Medications Acetaminophen (Tylenol) 650 mg PO Q4H PRN PRN Reason: Headache/Fever or Pain Last Admin: 05/23/17 06:31 Dose: 650 mg Hydrocodone Bitart/Acetaminophen ([place] 5/325) 1 tab PO Q4H PRN PRN Reason: Moderate Pain (4-6) Last Admin: 05/31/17 08:16 Dose: 1 tab Al Hydroxide/Mg Hydroxide (Maalox) 15 ml PO Q4H PRN PRN Reason: Heartburn or Indigestion Albuterol/Ipratropium (Duoneb) 3 ml NEB Q4H PRN PRN Reason: SOB &/or Wheezing Albuterol/Ipratropium (Duoneb) 3 ml NEB [id number] [facility] Last Admin: 05/31/17 13:15 Dose: 3 ml Artificial Tears (Tears Naturale) 0 drop EA EYE PRN PRN PRN Reason: Dry Eyes Bisacodyl (Dulcolax) 10 mg PO DAILYPRN PRN PRN Reason: Constipation Calcium Carbonate (Tums) 1,000 mg PO Q4H PRN PRN Reason: Heartburn or Indigestion Dextrose/Water (Dextrose 50%) 25 gm SLOW IVP PRN PRN PRN Reason: Hypoglycemia Enoxaparin Sodium (Lovenox) 40 mg SC 2100 [facility] Last Admin: 05/30/17 20:16 Dose: 40 mg Famotidine (Pepcid) 20 mg PO BID [facility] Last Admin: 05/31/17 08:11 Dose: 20 mg Glucagon (Glucagon) 1 mg IM PRN PRN PRN Reason: Hypoglycemia Guaifenesin (Robitussin Sf) 200 mg PO Q4H PRN PRN Reason: Cough Hydralazine HCl (Apresoline) 10 mg SLOW IVP Q4H PRN PRN Reason: Systolic BP > 180 Dextrose/Water (D5w) 1,000 mls @ 0 mls/hr IV .Q0M PRN; As Directed PRN Reason: Hypoglycemia Vancomycin HCl 1 gm/ Device 200 mls @ 200 mls/hr IVPB 1100,2300 [facility] Last Admin: 05/31/17 12:00 Dose: 200 mls Ciprofloxacin/Dextrose 400 mg/ (Device) 200 mls @ 200 mls/hr IVPB 0200,1400 [facility] Last Admin: 05/31/17 13:49 Dose: 200 mls Insulin Human Lispro (Humalog) 0 units SC .MILD SLIDING SCALE PRN PRN Reason: Mild Correctional Scale Last Admin: 05/31/17 12:25 Dose: 5 unit Insulin Human Lispro (Humalog) 0 units SC .BEDTIME SLIDING SC PRN PRN Reason: Bedtime Correctional Scale Last Admin: 05/30/17 20:16 Dose: 5 unit Loperamide HCl (Imodium) 2 mg PO PRN PRN PRN Reason: Diarrhea/Loose Stools Loratadine (Claritin) 10 mg PO DAILYPRN PRN PRN Reason: Sinus Symptoms Magnesium Hydroxide (Milk Of Magnesium) 30 ml PO DAILYPRN PRN PRN Reason: Constipation Mineral Oil/White Petrolatum (Eucerin Cream) 0 gm TOP BIDPRN PRN PRN Reason: Dry Skin Miscellaneous Medication (Pharmacy To Dose) 1 each IVPB DAILYPRN PRN PRN Reason: LABS Mometasone Furoate/Formoterol Fumar (Dulera 200 Mcg/5 Mcg Inhaler) 2 puff INH BID-RT [facility] Last Admin: 05/31/17 07:17 Dose: 2 puff Phenol (Chloraseptic [place] 180 Ml Bot) 0 ml PO PRN PRN PRN Reason: Sore Throat Sodium Chloride ([place] Nasal [place] 0.65%) 0 ml EA NARE QIDPRN PRN PRN Reason: Nasal Congestion Temazepam (Restoril) 15 mg PO HSPRN PRN PRN Reason: Insomnia Last Admin: 05/30/17 23:32 Dose: 15 mg Tramadol HCl (Ultram) 50 mg PO Q4H PRN PRN Reason: Mild-Moderate Pain (1-5) Last Admin: 05/30/17 23:32 Dose: 50 mg
[2017-05-31] MEDS: Enoxaparin Sodium 40 MG/0.4 ML SYRINGE SC SCH (21:26)
[2017-05-31] MEDS: traMADol HCl 50 MG TAB PO PRN (22:43)
[2017-06-01] MEDS: Temazepam 15 MG CAP PO PRN (00:58)
[2017-06-01] MEDS: HYDROcodone/Acetaminophen 5/325 mg Tablet PO PRN ×5 (01:06→23:55)
[2017-06-01] MEDS: HumaLOG 300 UNITS/3 ML VIAL SC PRN ×5 (06:46→20:20)
[2017-06-01] MEDS: Famotidine 20 MG TAB PO SCH ×2 (08:06→20:17)
[2017-06-01] MEDS: traMADol HCl 50 MG TAB PO PRN ×3 (08:12→20:18)
[2017-06-01 10:24] LABS: Vancomycin, Trough 19.3 ug/mL
[2017-06-01] MEDS: Mometasone/Formoterol 120 PUFF INHALER INH SCH ×2 (10:35→18:36)
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
[2017-06-01] MEDS: Vancomycin HCl 1 GM in Premix Bag 1 BAG IVPB SCH ×2 (11:28→23:54)
--- NOTE | 2017-06-01 14:08 | PDOC.PN ---
- Subjective Encounter Start Date: 06/01/17 Encounter Start Time: 08:20 Pt seen for followup re: sacral wound. No new complaints today. - Objective Resuscitation Status: Resuscitation Status DNI:No Intubation MAR Reviewed: Yes Vital Signs & Weight: Vital Signs (12 hours) Temp Pulse Resp BP Pulse Ox 06/01/17 13:16 90 16 06/01/17 08:00 98.2 F 93 16 114/67 95 06/01/17 04:00 89 147/66 H Weight Admit Weight 139 lb 6 oz Weight 139 lb I&O: 05/31/17 06/01/17 06/02/17 06:59 06:59 06:59 Intake Total 2980 1920 Output Total 1850 400 Balance 1130 1520 Result Diagrams: 05/23/17 04:40 05/23/17 04:40 Additional Labs: Accuchecks 06/01/17 06/01/17 05/31/17 11:13 04:51 20:09 POC Glucose 370 H 264 H 319 H 05/31/17 16:28 POC Glucose 335 H Phys Exam - Physical Examination Constitutional: NAD HEENT: moist MMs Neck: supple Respiratory: clear to auscultation bilateral Cardiovascular: RRR abdo wound vac+, ostomy+ Psychiatric: normal affect Dx/Plan (1) Decubitus ulcer, stage 4 with infection Code(s): L89.94 - PRESSURE ULCER OF UNSPECIFIED SITE, STAGE 4; L08.9 - LOCAL INFECTION OF THE SKIN AND SUBCUTANEOUS TISSUE, UNSP Status: Acute Comment: present on admission, over sacrum, cultures with gram positive cocci and some gram neg rods, on Rocephin and Vanc (2) BPH (benign prostatic hyperplasia) Code(s): N40.0 - BENIGN PROSTATIC HYPERPLASIA WITHOUT LOWER URINRY TRACT SYMP Status: Chronic (3) CAD (coronary artery disease) Code(s): I25.10 - ATHSCL HEART DISEASE OF [place] CORONARY ARTERY W/O ANG PCTRS Status: Chronic (4) Diabetes type 2, uncontrolled Code(s): E11.65 - TYPE 2 DIABETES MELLITUS WITH HYPERGLYCEMIA Status: Chronic (5) Dyslipidemia Code(s): E78.5 - HYPERLIPIDEMIA, UNSPECIFIED Status: Chronic (6) Hypertension Code(s): I10 - ESSENTIAL (PRIMARY) HYPERTENSION Status: Chronic (7) Acute respiratory failure with hypoxia Code(s): J96.01 - ACUTE RESPIRATORY FAILURE WITH HYPOXIA Status: Resolved (8) PVD (peripheral vascular disease) Code(s): I73.9 - PERIPHERAL VASCULAR DISEASE, UNSPECIFIED Status: Chronic - Plan plan discussed w/ family, continue antibiotics * . Needs PICC line. IV vancomycin, oral cipro and flagyl. Plan for discharge home on Sunday. Discussed with general surgery and ID services. Review of Systems - Review of Systems Cardiovascular: negative: chest pain, palpitations, orthopnea, paroxysmal nocturnal dyspnea, edema, light headedness Musculoskeletal: Back Pain - Medications/Allergies Allergies/Adverse Reactions: Allergies Allergy/AdvReac Type Severity Reaction Status Date / Time No Known Drug Allergies Allergy Verified 05/24/17 20:29 Medications: Current Medications Acetaminophen (Tylenol) 650 mg PO Q4H PRN PRN Reason: Headache/Fever or Pain Last Admin: 05/23/17 06:31 Dose: 650 mg Hydrocodone Bitart/Acetaminophen ([place] 5/325) 1 tab PO Q4H PRN PRN Reason: Moderate Pain (4-6) Last Admin: 06/01/17 10:01 Dose: 1 tab Al Hydroxide/Mg Hydroxide (Maalox) 15 ml PO Q4H PRN PRN Reason: Heartburn or Indigestion Albuterol/Ipratropium (Duoneb) 3 ml NEB Q4H PRN PRN Reason: SOB &/or Wheezing Albuterol/Ipratropium (Duoneb) 3 ml NEB [id number] [facility] Last Admin: 06/01/17 13:16 Dose: 3 ml Artificial Tears (Tears Naturale) 0 drop EA EYE PRN PRN PRN Reason: Dry Eyes Bisacodyl (Dulcolax) 10 mg PO DAILYPRN PRN PRN Reason: Constipation Calcium Carbonate (Tums) 1,000 mg PO Q4H PRN PRN Reason: Heartburn or Indigestion Ciprofloxacin (Cipro) 500 mg PO BID@0600,2000 [facility] Dextrose/Water (Dextrose 50%) 25 gm SLOW IVP PRN PRN PRN Reason: Hypoglycemia Enoxaparin Sodium (Lovenox) 40 mg SC 2100 [facility] Last Admin: 05/31/17 21:26 Dose: 40 mg Famotidine (Pepcid) 20 mg PO BID [facility] Last Admin: 06/01/17 08:06 Dose: 20 mg Glucagon (Glucagon) 1 mg IM PRN PRN PRN Reason: Hypoglycemia Guaifenesin (Robitussin Sf) 200 mg PO Q4H PRN PRN Reason: Cough Hydralazine HCl (Apresoline) 10 mg SLOW IVP Q4H PRN PRN Reason: Systolic BP > 180 Dextrose/Water (D5w) 1,000 mls @ 0 mls/hr IV .Q0M PRN; As Directed PRN Reason: Hypoglycemia Vancomycin HCl 1 gm/ Device 200 mls @ 200 mls/hr IVPB 1100,2300 [facility] Last Admin: 06/01/17 11:28 Dose: 200 mls Insulin Human Lispro (Humalog) 0 units SC .MILD SLIDING SCALE PRN PRN Reason: Mild Correctional Scale Last Admin: 06/01/17 11:26 Dose: 6 unit Insulin Human Lispro (Humalog) 0 units SC .BEDTIME SLIDING SC PRN PRN Reason: Bedtime Correctional Scale Last Admin: 05/31/17 21:28 Dose: 4 unit Loperamide HCl (Imodium) 2 mg PO PRN PRN PRN Reason: Diarrhea/Loose Stools Loratadine (Claritin) 10 mg PO DAILYPRN PRN PRN Reason: Sinus Symptoms Magnesium Hydroxide (Milk Of Magnesium) 30 ml PO DAILYPRN PRN PRN Reason: Constipation Mineral Oil/White Petrolatum (Eucerin Cream) 0 gm TOP BIDPRN PRN PRN Reason: Dry Skin Miscellaneous Medication (Pharmacy To Dose) 1 each IVPB DAILYPRN PRN PRN Reason: LABS Mometasone Furoate/Formoterol Fumar (Dulera 200 Mcg/5 Mcg Inhaler) 2 puff INH BID-RT [facility] Last Admin: 06/01/17 10:35 Dose: Not Given Phenol (Chloraseptic [place] 180 Ml Bot) 0 ml PO PRN PRN PRN Reason: Sore Throat Sodium Chloride ([place] Nasal [place] 0.65%) 0 ml EA NARE QIDPRN PRN PRN Reason: Nasal Congestion Temazepam (Restoril) 15 mg PO HSPRN PRN PRN Reason: Insomnia Last Admin: 06/01/17 00:58 Dose: 15 mg Tramadol HCl (Ultram) 50 mg PO Q4H PRN PRN Reason: Mild-Moderate Pain (1-5) Last Admin: 06/01/17 12:00 Dose: 50 mg
--- NOTE | 2017-06-01 16:22 | SPC ---
ULTRASOUND AND FLUOROSCOPIC GUIDED PICC LINE PLACEMENT: 06/01/17 COMPARISON: PICC line 04/12/17/ TECHNIQUE: The patient is brought to the Interventional Suite and all questions were answered. The left arm was prepped and draped in a normal sterile fashion. The left basilic and cephalic veins were included. The skin over the left brachial vein was anesthetized. Multiple attempts at blood retu rn of the left brachial vein were attempted. The tip of the needle was confirmed within the lumen of the branchial vein on multiple attempts but no blood flow through the needle tip. Subsequently the right arm was prepped and draped in the normal sterile fashion after no access was seen in the left brachial vein. Through the midline catheter a wire was placed with the tip in the IVC. A peel away sheath was placed over the wire through the peel away sheath a 41 cm PICC was placed. IMPRESSION: Technically successful ultrasound and fluoroscopically guided PICC line placement. POS: TRANG
[2017-06-01] MEDS: Cipro 250 MG TAB PO SCH (20:16)
[2017-06-01] MEDS: Enoxaparin Sodium 40 MG/0.4 ML SYRINGE SC SCH (20:17)
[2017-06-02] MEDS: HumaLOG 300 UNITS/3 ML VIAL SC PRN ×3 (05:48→20:58)
[2017-06-02] MEDS: Cipro 250 MG TAB PO SCH ×2 (05:48→20:57)
[2017-06-02] MEDS: HYDROcodone/Acetaminophen 5/325 mg Tablet PO PRN (06:28)
[2017-06-02] MEDS: Mometasone/Formoterol 120 PUFF INHALER INH SCH ×2 (07:03→20:23)
[2017-06-02] MEDS: traMADol HCl 50 MG TAB PO PRN (08:49)
[2017-06-02] MEDS: Famotidine 20 MG TAB PO SCH ×2 (08:49→20:59)
[2017-06-02] MEDS: Acetaminophen/Codeine 30-300mg Tablet PO PRN ×2 (11:25→19:03)
[2017-06-02] MEDS: Vancomycin HCl 1 GM in Premix Bag 1 BAG IVPB SCH ×2 (11:27→23:40)
--- NOTE | 2017-06-02 16:28 | PDOC.PN ---
- Subjective Encounter Start Date: 06/02/17 Encounter Start Time: 16:25 Pt seen for followup re: sacral wound. No complaints. - Objective Resuscitation Status: Resuscitation Status DNI:No Intubation MAR Reviewed: Yes Vital Signs & Weight: Vital Signs (12 hours) Temp Pulse Resp BP Pulse Ox 06/02/17 14:09 91 15 93 L 06/02/17 08:00 98.8 F 99 20 132/58 L 93 L 06/02/17 07:02 86 15 94 L Weight Admit Weight 139 lb 6 oz Weight 139 lb I&O: 06/01/17 06/02/17 06/03/17 06:59 06:59 06:59 Intake Total 1920 800 Output Total 400 350 400 Balance 1520 450 -400 Result Diagrams: 05/23/17 04:40 05/23/17 04:40 Additional Labs: Accuchecks 06/02/17 06/02/17 06/01/17 11:35 04:11 19:46 POC Glucose 347 H 375 H 383 H 06/01/17 17:04 POC Glucose 501 H Phys Exam - Physical Examination Constitutional: NAD HEENT: moist MMs Neck: supple Respiratory: clear to auscultation bilateral Cardiovascular: RRR Gastrointestinal: soft Neurological: moves all 4 limbs Psychiatric: normal affect Dx/Plan (1) Decubitus ulcer, stage 4 with infection Code(s): L89.94 - PRESSURE ULCER OF UNSPECIFIED SITE, STAGE 4; L08.9 - LOCAL INFECTION OF THE SKIN AND SUBCUTANEOUS TISSUE, UNSP Status: Acute Comment: present on admission, over sacrum, cultures with gram positive cocci and some gram neg rods, on Rocephin and Vanc (2) BPH (benign prostatic hyperplasia) Code(s): N40.0 - BENIGN PROSTATIC HYPERPLASIA WITHOUT LOWER URINRY TRACT SYMP Status: Chronic (3) CAD (coronary artery disease) Code(s): I25.10 - ATHSCL HEART DISEASE OF [place] CORONARY ARTERY W/O ANG PCTRS Status: Chronic (4) Diabetes type 2, uncontrolled Code(s): E11.65 - TYPE 2 DIABETES MELLITUS WITH HYPERGLYCEMIA Status: Chronic (5) Dyslipidemia Code(s): E78.5 - HYPERLIPIDEMIA, UNSPECIFIED Status: Chronic (6) Hypertension Code(s): I10 - ESSENTIAL (PRIMARY) HYPERTENSION Status: Chronic (7) Acute respiratory failure with hypoxia Code(s): J96.01 - ACUTE RESPIRATORY FAILURE WITH HYPOXIA Status: Resolved (8) PVD (peripheral vascular disease) Code(s): I73.9 - PERIPHERAL VASCULAR DISEASE, UNSPECIFIED Status: Chronic - Plan plan discussed w/ family, continue antibiotics * . Likely home on Sunday for IV antibiotics at home. Review of Systems - Review of Systems Constitutional: negative: fever, chills, sweats, weakness, malaise Respiratory: negative: Cough, Dry, Shortness of Breath, Hemoptysis, SOB with Excertion, Pleuritic Pain, Sputum, Wheezing Cardiovascular: negative: chest pain, palpitations, orthopnea, paroxysmal nocturnal dyspnea, edema, light headedness - Medications/Allergies Allergies/Adverse Reactions: Allergies Allergy/AdvReac Type Severity Reaction Status Date / Time No Known Drug Allergies Allergy Verified 05/24/17 20:29 Medications: Current Medications Acetaminophen (Tylenol) 650 mg PO Q4H PRN PRN Reason: Headache/Fever or Pain Last Admin: 05/23/17 06:31 Dose: 650 mg Acetaminophen/Codeine Phosphate (Tylenol #3) 1 tab PO Q6H PRN PRN Reason: Pain Last Admin: 06/02/17 11:25 Dose: 1 tab Al Hydroxide/Mg Hydroxide (Maalox) 15 ml PO Q4H PRN PRN Reason: Heartburn or Indigestion Albuterol/Ipratropium (Duoneb) 3 ml NEB Q4H PRN PRN Reason: SOB &/or Wheezing Albuterol/Ipratropium (Duoneb) 3 ml NEB [id number] [facility] Last Admin: 06/02/17 14:09 Dose: 3 ml Artificial Tears (Tears Naturale) 0 drop EA EYE PRN PRN PRN Reason: Dry Eyes Bisacodyl (Dulcolax) 10 mg PO DAILYPRN PRN PRN Reason: Constipation Calcium Carbonate (Tums) 1,000 mg PO Q4H PRN PRN Reason: Heartburn or Indigestion Ciprofloxacin (Cipro) 500 mg PO BID@0600,2000 [facility] Last Admin: 06/02/17 05:48 Dose: 500 mg Dextrose/Water (Dextrose 50%) 25 gm SLOW IVP PRN PRN PRN Reason: Hypoglycemia Enoxaparin Sodium (Lovenox) 40 mg SC 2100 [facility] Last Admin: 06/01/17 20:17 Dose: 40 mg Famotidine (Pepcid) 20 mg PO BID [facility] Last Admin: 06/02/17 08:49 Dose: 20 mg Glucagon (Glucagon) 1 mg IM PRN PRN PRN Reason: Hypoglycemia Guaifenesin (Robitussin Sf) 200 mg PO Q4H PRN PRN Reason: Cough Hydralazine HCl (Apresoline) 10 mg SLOW IVP Q4H PRN PRN Reason: Systolic BP > 180 Dextrose/Water (D5w) 1,000 mls @ 0 mls/hr IV .Q0M PRN; As Directed PRN Reason: Hypoglycemia Vancomycin HCl 1 gm/ Device 200 mls @ 200 mls/hr IVPB 1100,2300 [facility] Last Admin: 06/02/17 11:27 Dose: 200 mls Insulin Human Lispro (Humalog) 0 units SC .MILD SLIDING SCALE PRN PRN Reason: Mild Correctional Scale Last Admin: 06/02/17 11:36 Dose: 5 unit Insulin Human Lispro (Humalog) 0 units SC .BEDTIME SLIDING SC PRN PRN Reason: Bedtime Correctional Scale Last Admin: 06/01/17 20:20 Dose: 5 unit Loperamide HCl (Imodium) 2 mg PO PRN PRN PRN Reason: Diarrhea/Loose Stools Loratadine (Claritin) 10 mg PO DAILYPRN PRN PRN Reason: Sinus Symptoms Magnesium Hydroxide (Milk Of Magnesium) 30 ml PO DAILYPRN PRN PRN Reason: Constipation Mineral Oil/White Petrolatum (Eucerin Cream) 0 gm TOP BIDPRN PRN PRN Reason: Dry Skin Miscellaneous Medication (Pharmacy To Dose) 1 each IVPB DAILYPRN PRN PRN Reason: LABS Mometasone Furoate/Formoterol Fumar (Dulera 200 Mcg/5 Mcg Inhaler) 2 puff INH BID-RT [facility] Last Admin: 06/02/17 07:03 Dose: 2 puff Phenol (Chloraseptic [place] 180 Ml Bot) 0 ml PO PRN PRN PRN Reason: Sore Throat Sodium Chloride ([place] Nasal [place] 0.65%) 0 ml EA NARE QIDPRN PRN PRN Reason: Nasal Congestion Tramadol HCl (Ultram) 50 mg PO Q4H PRN PRN Reason: Mild-Moderate Pain (1-5) Last Admin: 06/02/17 08:49 Dose: 50 mg
[2017-06-02] MEDS: Enoxaparin Sodium 40 MG/0.4 ML SYRINGE SC SCH (21:08)
[2017-06-03] MEDS: traMADol HCl 50 MG TAB PO PRN ×4 (00:14→23:35)
[2017-06-03] MEDS: Acetaminophen/Codeine 30-300mg Tablet PO PRN ×3 (02:29→19:59)
[2017-06-03] MEDS: Cipro 250 MG TAB PO SCH ×2 (06:04→19:53)
[2017-06-03] MEDS: HumaLOG 300 UNITS/3 ML VIAL SC PRN ×4 (06:06→20:09)
[2017-06-03] MEDS: Mometasone/Formoterol 120 PUFF INHALER INH SCH ×2 (07:43→18:15)
[2017-06-03] MEDS: Famotidine 20 MG TAB PO SCH ×2 (08:43→19:54)
--- NOTE | 2017-06-03 10:54 | PDOC.PN ---
- Subjective Encounter Start Date: 06/03/17 Encounter Start Time: 09:00 Pt seen for followup re: decubitus ulcer. Denies chest pain, shortness of breath, fevers or chills. - Objective Resuscitation Status: Resuscitation Status DNI:No Intubation MAR Reviewed: Yes Vital Signs & Weight: Vital Signs (12 hours) Temp Pulse Resp BP Pulse Ox 06/03/17 08:00 98.9 F 103 H 20 152/73 H 95 06/03/17 07:38 101 H 16 97 06/03/17 01:22 91 16 94 L 06/03/17 00:00 98.2 F Weight Admit Weight 139 lb 6 oz Weight 139 lb I&O: 06/02/17 06/03/17 06/04/17 06:59 06:59 06:59 Intake Total 800 1600 Output Total 350 553 100 Balance 450 1047 -100 Result Diagrams: 05/23/17 04:40 05/23/17 04:40 Additional Labs: Accuchecks 06/03/17 06/02/17 06/02/17 06:07 20:59 16:44 POC Glucose 392 H 420 H 352 H 06/02/17 11:35 POC Glucose 347 H Phys Exam - Physical Examination Constitutional: NAD HEENT: moist MMs Respiratory: clear to auscultation bilateral Cardiovascular: RRR Gastrointestinal: soft abdo wound, ostomy Deviation from normal: sacral wound Dx/Plan (1) Decubitus ulcer, stage 4 with infection Code(s): L89.94 - PRESSURE ULCER OF UNSPECIFIED SITE, STAGE 4; L08.9 - LOCAL INFECTION OF THE SKIN AND SUBCUTANEOUS TISSUE, UNSP Status: Acute Comment: present on admission, over sacrum, cultures with gram positive cocci and some gram neg rods, on Rocephin and Vanc (2) BPH (benign prostatic hyperplasia) Code(s): N40.0 - BENIGN PROSTATIC HYPERPLASIA WITHOUT LOWER URINRY TRACT SYMP Status: Chronic (3) CAD (coronary artery disease) Code(s): I25.10 - ATHSCL HEART DISEASE OF [place] CORONARY ARTERY W/O ANG PCTRS Status: Chronic (4) Diabetes type 2, uncontrolled Code(s): E11.65 - TYPE 2 DIABETES MELLITUS WITH HYPERGLYCEMIA Status: Chronic (5) Dyslipidemia Code(s): E78.5 - HYPERLIPIDEMIA, UNSPECIFIED Status: Chronic (6) Hypertension Code(s): I10 - ESSENTIAL (PRIMARY) HYPERTENSION Status: Chronic (7) Acute respiratory failure with hypoxia Code(s): J96.01 - ACUTE RESPIRATORY FAILURE WITH HYPOXIA Status: Resolved (8) PVD (peripheral vascular disease) Code(s): I73.9 - PERIPHERAL VASCULAR DISEASE, UNSPECIFIED Status: Chronic - Plan continue antibiotics * . Discussed with wound care service, pt will need a second wound vac. Likely discharge 24-48 hrs. Review of Systems - Review of Systems Constitutional: weakness. negative: fever, chills, sweats, malaise - Medications/Allergies Allergies/Adverse Reactions: Allergies Allergy/AdvReac Type Severity Reaction Status Date / Time No Known Drug Allergies Allergy Verified 05/24/17 20:29 Medications: Current Medications Acetaminophen (Tylenol) 650 mg PO Q4H PRN PRN Reason: Headache/Fever or Pain Last Admin: 05/23/17 06:31 Dose: 650 mg Acetaminophen/Codeine Phosphate (Tylenol #3) 1 tab PO Q6H PRN PRN Reason: Pain Last Admin: 06/03/17 08:42 Dose: 1 tab Al Hydroxide/Mg Hydroxide (Maalox) 15 ml PO Q4H PRN PRN Reason: Heartburn or Indigestion Albuterol/Ipratropium (Duoneb) 3 ml NEB Q4H PRN PRN Reason: SOB &/or Wheezing Albuterol/Ipratropium (Duoneb) 3 ml NEB [id number] [facility] Last Admin: 06/03/17 07:38 Dose: 3 ml Artificial Tears (Tears Naturale) 0 drop EA EYE PRN PRN PRN Reason: Dry Eyes Bisacodyl (Dulcolax) 10 mg PO DAILYPRN PRN PRN Reason: Constipation Calcium Carbonate (Tums) 1,000 mg PO Q4H PRN PRN Reason: Heartburn or Indigestion Ciprofloxacin (Cipro) 500 mg PO BID@0600,2000 [facility] Last Admin: 06/03/17 06:04 Dose: 500 mg Dextrose/Water (Dextrose 50%) 25 gm SLOW IVP PRN PRN PRN Reason: Hypoglycemia Enoxaparin Sodium (Lovenox) 40 mg SC 2100 [facility] Last Admin: 06/02/17 21:08 Dose: 40 mg Famotidine (Pepcid) 20 mg PO BID [facility] Last Admin: 06/03/17 08:43 Dose: 20 mg Glucagon (Glucagon) 1 mg IM PRN PRN PRN Reason: Hypoglycemia Guaifenesin (Robitussin Sf) 200 mg PO Q4H PRN PRN Reason: Cough Hydralazine HCl (Apresoline) 10 mg SLOW IVP Q4H PRN PRN Reason: Systolic BP > 180 Dextrose/Water (D5w) 1,000 mls @ 0 mls/hr IV .Q0M PRN; As Directed PRN Reason: Hypoglycemia Vancomycin HCl 1 gm/ Device 200 mls @ 200 mls/hr IVPB 1100,2300 [facility] Last Admin: 06/02/17 23:40 Dose: 200 mls Insulin Human Lispro (Humalog) 0 units SC .MILD SLIDING SCALE PRN PRN Reason: Mild Correctional Scale Last Admin: 06/03/17 06:06 Dose: 6 unit Insulin Human Lispro (Humalog) 0 units SC .BEDTIME SLIDING SC PRN PRN Reason: Bedtime Correctional Scale Last Admin: 06/01/17 20:20 Dose: 5 unit Loperamide HCl (Imodium) 2 mg PO PRN PRN PRN Reason: Diarrhea/Loose Stools Loratadine (Claritin) 10 mg PO DAILYPRN PRN PRN Reason: Sinus Symptoms Magnesium Hydroxide (Milk Of Magnesium) 30 ml PO DAILYPRN PRN PRN Reason: Constipation Mineral Oil/White Petrolatum (Eucerin Cream) 0 gm TOP BIDPRN PRN PRN Reason: Dry Skin Miscellaneous Medication (Pharmacy To Dose) 1 each IVPB DAILYPRN PRN PRN Reason: LABS Mometasone Furoate/Formoterol Fumar (Dulera 200 Mcg/5 Mcg Inhaler) 2 puff INH BID-RT [facility] Last Admin: 06/03/17 07:43 Dose: 2 puff Phenol (Chloraseptic Jolo 180 Ml Bot) 0 ml PO PRN PRN PRN Reason: Sore Throat Sodium Chloride ([place] Nasal Jolo 0.65%) 0 ml EA NARE QIDPRN PRN PRN Reason: Nasal Congestion Tramadol HCl (Ultram) 50 mg PO Q4H PRN PRN Reason: Mild-Moderate Pain (1-5) Last Admin: 06/03/17 06:03 Dose: 50 mg
[2017-06-03] MEDS: Vancomycin HCl 1 GM in Premix Bag 1 BAG IVPB SCH ×2 (11:43→23:30)
[2017-06-03] MEDS: Enoxaparin Sodium 40 MG/0.4 ML SYRINGE SC SCH (19:54)
[2017-06-04] MEDS: Acetaminophen/Codeine 30-300mg Tablet PO PRN ×3 (04:47→16:17)
[2017-06-04] MEDS: Cipro 250 MG TAB PO SCH (04:48)
[2017-06-04] MEDS: HumaLOG 300 UNITS/3 ML VIAL SC PRN ×2 (04:50→12:28)
[2017-06-04] MEDS: Mometasone/Formoterol 120 PUFF INHALER INH SCH (06:11)
[2017-06-04 08:36] VITALS: BP 119/66; TEMP 98.4
[2017-06-04] MEDS: Famotidine 20 MG TAB PO SCH (09:00)
[2017-06-04] MEDS: traMADol HCl 50 MG TAB PO PRN ×2 (09:12→13:49)
[2017-06-04] MEDS: Vancomycin HCl 1 GM in Premix Bag 1 BAG IVPB SCH (10:43)
[2017-06-04] MEDS ORDERED: Fluconazole 100 MG TAB PO SCH (10:45)
[2017-06-04] MEDS ORDERED: metroNIDAZOLE 500 MG TAB PO SCH ×2 (15:00)
[2017-06-04] MEDS ORDERED: Heparin 1,000 UNITS/ML VIAL ONE (15:07)
[2017-06-04 16:49] LABS: #Eosinphils 0.1 thou/uL (0.0-0.7); #Lymphocytes 2.1 thou/uL (1.20-3.40); #Monocytes 0.7 thou/uL (0.11-0.59); #Neutrophils 6.7 thou/uL (1.40-6.50); %Basophils 0.3 % (0.0-1.0); %Eosinophils 0.6 % (0.0-10.0); %Lymphocytes 22.3 % (21.0-51.0); %Monocytes 6.9 % (0.0-10.0); %Neutrophils 69.9 % (42.0-75.0); Hemoglobin 9.3 g/dL (14.0-18.0); Mean Corpuscular HGB CONC 30.8 g/dL (32.0-36.0); Mean Corpuscular Hemoglobin 30.1 pg (27.0-31.0); Mean Corpuscular Volume 97.6 fl (80.0-94.0); Mean Platelet Volume 7.3 fL (7.4-10.4); Platelet Count 378 thou/uL (130-400); RBC Distribution Width 16.8 % (11.5-14.5); White Blood Cell (WBC) Count 9.6 thou/uL (4.8-10.8)
[2017-06-04 17:09] LABS: ALT (SGPT) 25 U/L (8-55); AST (SGOT) 20 U/L (5-34); Albumin 2.6 g/dL (3.4-4.8); Alkaline Phosphatase 81 U/L (40-150); Anion Gap 13 mmol/L (10-20); BUN (Urea Nitrogen) 8 mg/dL (8.4-25.7); Bilirubin, Total 0.4 mg/dL (0.2-1.2); Calc. Creatinine Clearance 85 mL/min (70-130); Calcium 8.5 mg/dL (7.8-10.44); Carbon Dioxide 28 mmol/L (23-31); Chloride 99 mmol/L (98-107); Estimated GFR-MDRD Greater than 90; Globulin 3.6 g/dL (2.4-3.5); Glucose 316 mg/dL (83-110); Potassium 4.1 mmol/L (3.5-5.1); Protein, Total 6.2 g/dL (5.8-8.1); Sodium 136 mmol/L (136-145)
--- NOTE | 2017-06-04 22:46 | DIS ---
DATE OF ADMISSION: 05/22/2017. DATE OF DISCHARGE: 06/04/2017. PRIMARY CARE PHYSICIAN: Tejas Maxwell, DISCHARGE DIAGNOSES: 1. Sacral decubitus ulcer. 2. Abdominal wound pressure ulcer. 3. Peripheral vascular disease. CONDITION OF PATIENT AT THE TIME OF DISCHARGE: Stable. I assessed Mr. Bennett on the day of discharge . He denies any chest pain or shortness of breath. Vital signs are stable. S1 and S2 are heard, re gular. Lungs are clear to auscultation bilaterally. DISCHARGE MEDICATIONS: Tramadol 50 mg every 8 hours as needed; DuoNeb q.4 hours p.r.n.; vitamin C 10 00 mg daily; aspirin 81 mg daily; atorvastatin 40 mg daily; Coreg 6.25 mg 2 times a day; ciprofloxaci n 500 mg 2 times a day until 07/09/2017; vitamin B12, 1000 mcg daily; Cymbalta 60 mg daily, Pepcid 20 mg 2 times a day; fluconazole 100 mg daily for 2 weeks; furosemide 40 mg daily; gabapentin 300 mg 2 times a day; Levemir insulin 36 units 2 times a day; Flagyl 250 mg 3 times a day for 24 days; Protoni x 40 mg daily; tamsulosin 0.4 mg daily; vancomycin 1 gram 2 times a day until 07/18/2017. CONSULTATIONS DURING THIS HOSPITALIZATION: General surgery, Dr. Solitario Mcallister ; Infectious Disease s, Dr. Mcdonough; and Cardiovascular Surgery, Dr. Anthony King. HOSPITAL COURSE: Mr. Bennett is a pleasant 72-year-old gentleman who was admitted to [facility] on 05/22/2017 for acute hypoxic respiratory failure secondary to chronic obstructive pulmonary disease exacerbation. He also had acute encephalopathy. He had sacral decubitus ulcer al richard with gangrenous ulcers in his lower extremity. He was seen by Cardiovascular Surgery, General Surgery, and Infectious Disease Services during this h ospitalization. 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 There was reconstitution of fluid at the level of the left popliteal artery via collaterals via the left profunda femoral artery. Occlusion i n the right femoral artery reconstitutes to the level of the distal right superficial femoral artery with three-vessel runoff to the level of the right ankle. On 05/25/2017, he underwent sharp debridement of infected sacral decubitus ulcer. A wound VAC was wiley bsequently applied. He had wound cultures that were positive for Pseudomonas aeruginosa, Streptococc us agalactiae, and Enterococcus faecalis. On the day of discharge, it was also noted that he had fun gal-appearing lesions over the edges of the wound. Because of wound VAC, topical antifungals could n ot be applied. He was started on fluconazole. In terms of the peripheral vascular disease, he had discussions with cardiovascular surgeon and the o utcome of the discussions was that he did not have lower extremity amputations. He is being discharged home with antibiotics, extended duration as described above. He received a PI CC line placement during this hospitalization. Many thanks for allowing me to participate in your patient's care. Please feel free to contact me wi th any questions or concerns. DISCHARGE DESTINATION: Home. TOTAL AMOUNT OF TIME SPENT COORDINATING THIS DISCHARGE: 32 minutes.
[2017-06-05] MEDS ORDERED: Fluconazole 100 MG TAB PO SCH (09:00)
--- NOTE | 2017-06-09 17:34 | EKG ---
Test Reason : DYSPNEA Blood Pressure : / mmHG Vent. Rate : 080 BPM Atrial Rate : 080 BPM P-R Int : 134 ms QRS Dur : 110 ms QT Int : 380 ms P-R-T Axes : 060 -26 036 degrees QTc Int : 438 ms Normal sinus rhythm Incomplete left bundle branch block Minimal voltage criteria for LVH, may be normal variant Borderline ECG Confirmed by MINDI MOSLEY ([id number]), film editor supervisor HELENE VAZQUEZ ([id number]) on 06/09/2017 5:33:52 PM Referred By: Confirmed By:MINDI MOSLEY
--- NOTE | 2017-06-15 06:54 | PQF ---
YANG GUARDADO, GABRIELA Potter MD [id number] CLINICAL DOCUMENTATION CLARIFICATION FORM: POST DISCHARGE DATE: 06/15/2017 ATTN: Dr. Mcallister Please exercise your independent, professional judgment in responding to the clarification form. Clinical indicators are provided on the bottom of this form for your review Please clarify type of debridement for sacral and abdominal decubitus: Please check appropriate box(s): Stage IV Sacral Decubitus [ x ] Excisional Debridement: [ x ] Excised [ ] Cut away [ ] Other: Depth / layer: (deepest layer of debridement): [ x ] Skin[ x ] SubQ Tissue [ x] Fascia [ x] Muscle [ ] Tendon [ ] Bone Appearance of wound: (e.g., down to fresh bleeding tissue, etc.)___ necrotic tissue removed down to viable tissue__ Margins: (please specify): / ___8__ x _10____ x _4__(sacral wound), 15x5x4 (abdominal wound)__ Instruments used: [ ] Scissors [ x ] Scalpel [ ] Curette [ ] Soft tissue clipper [ ] Other: [ ] Non-excisional Debridement: (Removal by flushing, brushing, chemical, or washing) Depth / layer: (deepest layer of debridement): [ ] Skin[ ] Subcutaneous [ ] Fascia [ ] Muscle [ ] Tendon [ ] Bone Abdominal decubitus [ ] Excisional Debridement: [ ] Excised [ ] Cut away [ ] Other: Depth / layer: (deepest layer of debridement): [ ] Skin[ ] SubQ Tissue [ ] Fascia [ ] Muscle [ ] Tendon [ ] Bone Appearance of wound: (e.g., down to fresh bleeding tissue, etc.)___ Margins: (please specify): / x x Instruments used: [ ] Scissors [ ] Scalpel [ ] Curette [ ] Soft tissue clipper [ ] Other: [ ] Non-excisional Debridement: (Removal by flushing, brushing, chemical, or washing) Depth / layer: (deepest layer of debridement): [ ] Skin[ ] Subcutaneous [ ] Fascia [ ] Muscle [ ] Tendon [ ] Bone [ ] Other procedure diagnosis (please specify) [ ] Unable to determine For continuity of documentation, please document condition throughout progress notes and discharge summary. Thank You. CLINICAL INDICATORS - SIGNS / SYMPTOMS / LABS (per progress/procedure note) Sacral decubitus: Sharply dissected and debrided the infected necrotic material . Abdominall wound: Abdominal wound remains lined almost entiresly with nonviable tissue and slough. I again sharply debrided extensively within the wound removing old PDS suture and nonviable tissue. RISK FACTORS (per progress notes) Infected sacral decubitus ulcer. Abdominal wound pressure ulcer. TREATMENTS:(per progress/procedure note) Sharp debridement of sacral and abdominal decubitus ulcers. (This form is maintained as a part of the permanent medical record) 2014 [id number]. All Rights Reserved Crystal [email or web address] [phone] MARIA DEL CARMEN
== END 2017-06-04 16:52 | disposition home health service (06) | DRG 981 ==
LOC: ERS 13:52 → EDUNIT# 16:45 → T4-A 16:45
PROVIDERS: ADMIT Emergency Medicine; ATTEND Emergency Medicine
PROC: 0KBP0ZZ Excision of Left Hip Muscle, Open Approach (ICD-10-PCS; principal; 2017-05-25)
PROC: 0KBN0ZZ Excision of Right Hip Muscle, Open Approach (ICD-10-PCS; 2017-05-25)
PROC: 0HD7XZZ Extraction of Abdomen Skin, External Approach (ICD-10-PCS; 2017-05-25)
PROC: 06H033Z Insertion of Infusion Device into Inferior Vena Cava, Percutaneous Approach (ICD-10-PCS; 2017-06-01)
DX: J96.01 Acute respiratory failure with hypoxia (principal); G93.40 Encephalopathy, unspecified; L89.154 Pressure ulcer of sacral region, stage 4; I11.0 Hypertensive heart disease with heart failure; I70.263 Atherosclerosis of native arteries of extremities with gangrene, bilateral legs; E11.65 Type 2 diabetes mellitus with hyperglycemia; I50.32 Chronic diastolic (congestive) heart failure; L89.893 Pressure ulcer of other site, stage 3; L97.819 Non-pressure chronic ulcer of other part of right lower leg with unspecified severity; J44.1 Chronic obstructive pulmonary disease with (acute) exacerbation; L97.829 Non-pressure chronic ulcer of other part of left lower leg with unspecified severity; I70.92 Chronic total occlusion of artery of the extremities; B96.5 Pseudomonas (aeruginosa) (mallei) (pseudomallei) as the cause of diseases classified elsewhere; Z86.74 Personal history of sudden cardiac arrest; E78.5 Hyperlipidemia, unspecified; I25.10 Atherosclerotic heart disease of native coronary artery without angina pectoris; F32.9 Major depressive disorder, single episode, unspecified; F17.210 Nicotine dependence, cigarettes, uncomplicated; N40.0 Benign prostatic hyperplasia without lower urinary tract symptoms; K80.20 Calculus of gallbladder without cholecystitis without obstruction; B95.4 Other streptococcus as the cause of diseases classified elsewhere; B95.2 Enterococcus as the cause of diseases classified elsewhere; Z90.49 Acquired absence of other specified parts of digestive tract; Z93.3 Colostomy status; Z96.642 Presence of left artificial hip joint; Z79.82 Long term (current) use of aspirin; Z79.4 Long term (current) use of insulin; Z79.899 Other long term (current) drug therapy
CPT/HCPCS: 36415; 36416; 36569; 71045; 75635; 80048; 80053; 80202; 82553; 82805; 83880; 84484; 85025; 85379; 87040; 87070; 87077; 87186; 87205; 93005; 94640; 94760; A4216; C1751; G8978-GP-CM; G8979-GP-CK; G8987-GO-CL; G8988-GO-CJ; G9165-GN-CM; G9166-GN-CI; J0456; J0696; J0744; J1644; J1650; J2060; J2920; J3370; J7050; J7620

== ENCOUNTER 2017-06-15 10:43 | Emergency (ER) | payer MEDICARE, OTHER ==
[2017-06-15 12:26] LABS: #Basophils 0.1 thou/uL (0.0-0.2); #Eosinphils 0.1 thou/uL (0.0-0.7); #Lymphocytes 2.8 thou/uL (1.20-3.40); #Monocytes 0.9 thou/uL (0.11-0.59); #Neutrophils 8.7 thou/uL (1.40-6.50); %Basophils 0.5 % (0.0-1.0); %Eosinophils 0.6 % (0.0-10.0); %Lymphocytes 22.1 % (21.0-51.0); %Neutrophils 69.8 % (42.0-75.0); Hemoglobin 10.9 g/dL (14.0-18.0); Mean Corpuscular HGB CONC 31.8 g/dL (32.0-36.0); Mean Corpuscular Hemoglobin 29.6 pg (27.0-31.0); Mean Corpuscular Volume 93.3 fl (80.0-94.0); Mean Platelet Volume 7.3 fL (7.4-10.4); Platelet Count 363 thou/uL (130-400); RBC Distribution Width 16.3 % (11.5-14.5); Red Blood Cell (RBC) Count 3.67 mill/uL (4.70-6.10); White Blood Cell (WBC) Count 12.4 thou/uL (4.8-10.8)
[2017-06-15 12:46] LABS: ALT (SGPT) 23 U/L (8-55); AST (SGOT) 13 U/L (5-34); Albumin 3.2 g/dL (3.4-4.8); Alkaline Phosphatase 107 U/L (40-150); Anion Gap 15 mmol/L (10-20); BUN (Urea Nitrogen) 31 mg/dL (8.4-25.7); Bilirubin, Total 0.4 mg/dL (0.2-1.2); Calc. Creatinine Clearance 0 mL/min (70-130); Calcium 9.4 mg/dL (7.8-10.44); Carbon Dioxide 24 mmol/L (23-31); Chloride 97 mmol/L (98-107); Estimated GFR-MDRD 73; Glucose 439 mg/dL (83-110); Potassium 4.4 mmol/L (3.5-5.1); Protein, Total 7.2 g/dL (5.8-8.1); Sodium 132 mmol/L (136-145)
[2017-06-15] MEDS ORDERED: Insulin Regular 300 UNITS/3 ML VIAL ONE (13:36)
== END 2017-06-15 14:32 | disposition home or self-care (01) ==
LOC: EDUNIT# 10:43 → ERS 10:43
DX: L89.159 Pressure ulcer of sacral region, unspecified stage (principal); E11.622 Type 2 diabetes mellitus with other skin ulcer; E11.52 Type 2 diabetes mellitus with diabetic peripheral angiopathy with gangrene; I96 Gangrene, not elsewhere classified; R19.7 Diarrhea, unspecified; Z87.891 Personal history of nicotine dependence
CPT/HCPCS: 36416; 80053; 85025; 87040; 99284; J1815

== ENCOUNTER 2017-07-31 09:33 | Inpatient (IN) | payer MEDICARE, OTHER ==
[2017-07-31 10:01] LABS: #Basophils 0.1 thou/uL (0.0-0.2); #Eosinphils 0.1 thou/uL (0.0-0.7); #Lymphocytes 3.6 thou/uL (1.20-3.40); #Monocytes 0.9 thou/uL (0.11-0.59); #Neutrophils 7.1 thou/uL (1.40-6.50); %Basophils 0.5 % (0.0-1.0); %Eosinophils 0.6 % (0.0-10.0); %Lymphocytes 30.8 % (21.0-51.0); %Monocytes 7.7 % (0.0-10.0); %Neutrophils 60.4 % (42.0-75.0); Hemoglobin 11.3 g/dL (14.0-18.0); Mean Corpuscular HGB CONC 30.7 g/dL (32.0-36.0); Mean Corpuscular Hemoglobin 27.6 pg (27.0-31.0); Mean Platelet Volume 7.4 fL (7.4-10.4); Platelet Count 365 thou/uL (130-400); RBC Distribution Width 16.8 % (11.5-14.5); Red Blood Cell (RBC) Count 4.08 mill/uL (4.70-6.10); White Blood Cell (WBC) Count 11.7 thou/uL (4.8-10.8)
[2017-07-31] MEDS ORDERED: Vancomycin HCl 1.5 GM, Admixture Fee 1 EACH in Sodium Chloride 0.9% 250 ML 300 ML IVPB SCH (10:15)
[2017-07-31 10:24] LABS: ALT (SGPT) 24 U/L (8-55); AST (SGOT) 19 U/L (5-34); Albumin 3.5 g/dL (3.4-4.8); Alkaline Phosphatase 106 U/L (40-150); Anion Gap 19 mmol/L (10-20); BUN (Urea Nitrogen) 21 mg/dL (8.4-25.7); Bilirubin, Total 0.4 mg/dL (0.2-1.2); CK (CPK) 39 U/L (30-200); Calc. Creatinine Clearance 0 mL/min (70-130); Calcium 10.1 mg/dL (7.8-10.44); Carbon Dioxide 22 mmol/L (23-31); Chloride 102 mmol/L (98-107); Estimated GFR-MDRD 76; Globulin 4.8 g/dL (2.4-3.5); Glucose 168 mg/dL (83-110); Potassium 4.5 mmol/L (3.5-5.1); Protein, Total 8.3 g/dL (5.8-8.1); Sodium 138 mmol/L (136-145)
[2017-07-31 10:29] LABS: CKMB 2.1 ng/mL (0-6.6); Troponin I Less than 0.010 ng/mL (< 0.028)
[2017-07-31] MEDS ORDERED: Meropenem 1 GM in Sterile Water 20 ML SLOW IVP SCH (10:30)
[2017-07-31 10:40] LABS: Bilirubin Negative (Negative); Blood, Urine Small (Negative); Clarity TURBID (Clear); Glucose, Urine (Dipstick) 100 mg/dL (Negative); Leukocyte Large (Negative); Nitrite Negative (Negative); Protein, Urine (Dipstick) 30 mg/dL (Neg-Trace); Specific Gravity, Urine 1.018 (1.002-1.036); Urobilinogen 0.2 mg/dL (0.2-1.0); pH, Urine 5.5 (5.0-9.0)
[2017-07-31] MEDS ORDERED: Meropenem 1 GM in Sodium Chloride 0.9% 100 ML IVPB SCH (10:45)
[2017-07-31 10:49] LABS: Bacteria/HPF 2+ HPF (None Seen); Hyaline Casts/LPF NONE SEEN LPF (0-3 Hyaline); Renal Epithelial 0-3 HPF (0-3)
--- NOTE | 2017-07-31 10:50 | CT ---
CT HEAD NONCONTRAST: CLINICAL HISTORY: A 72-year-old male. Altered mental status. COMPARISON: Reference is made to 07/21/2017. FINDINGS: There is a stable size of the ventricular system. Mild chronic microvascular ischemic disease is pre sent. Parenchymal volume is age appropriate. No intracranial hemorrhage, mass effect, or midline sh ift. IMPRESSION: 1. No acute intracranial abnormalities. 2. Mild chronic microvascular ischemic disease. 3. Stable mild bilateral inferior mastoid opacification. POS: [facility]
--- NOTE | 2017-07-31 10:52 | RAD ---
PORTABLE CHEST: History: Mental status change. FINDINGS: Opacity in the right lung base would correspond to the loculated pleural fluid seen in the posterior right lung base on today's CT abdomen. Associated atelectasis is also confirmed on CT in the right lo wer lobe. Lungs otherwise appear clear. No evidence of vascular congestion. Heart and mediastinum are unremarka ble. IMPRESSION: Bibasilar opacity consistent with atelectasis and pleural fluid as noted above. POS: [facility]
--- NOTE | 2017-07-31 11:01 | CT ---
CT ABDOMEN AND PELVIS WITH CONTRAST: Technique: Multiple axial tomograms were obtained through the abdomen and pelvis with IV enhancement. Oral contrast was not given. Indications: Altered mental status. Comparison: CT chest, abdomen, and pelvis dated 04-25-17. FINDINGS: Images through the lung bases reveal a loculated fluid collection in the right lung base posteriorly measuring up to 8-9 cm. There is some associated atelectatic change in the right lung base. Liver, spleen, and pancreas are unremarkable. There are numerous small gallstones seen dependently in the gallbladder. No pericholecystic edema brandon ntified. Small bowel loops are normal caliber. Patient appears to be post colectomy. There is a rectal stump. There is inflammatory stranding in the mesentery of the midabdomen on the left which has improved whe n compared to the prior CT. A small fluid dense collection within the mesentery on the left is seen, measuring approximately 2-3 cm today. This is much smaller than on the prior study of 04-25-17. Adrenal glands and kidneys are unremarkable. Bladder is mildly distended. There is mild bladder wall thickening. There is an open skin wound midline abdomen. Abdominal aortic aneurysm again noted and unchanged measuring 3.6 cm diameter with significant periph eral thrombus. IMPRESSION: 1. Loculated fluid collection in the right lung base with associated atelectasis. 2. Cholelithiasis. 3. Mesenteric stranding and minimal fluid density in the left abdomen shows significant improvement f rom the prior CT. 4. Abdominal aortic aneurysm is stable. POS: [facility]
[2017-07-31] MEDS ORDERED: Naloxone HCl 0.4 mg/ml Vial ONE (11:26)
[2017-07-31 11:50] LABS: Base Excess-Venous 0.7 mmol/L (0 (+/- 2.5)); Bicarbonate (HCO3v) 26.8 mmol/L (1.0-85.0); CO2 Tension (PvCO2) 48.8 mmHg (41.0-51.0); Calcium, Ionized 1.11 mmol/L (1.12-1.32); Hemoglobin - Calc 9.2 g/dL (12.0-18.0); O2 Tension (PvO2) 27.2 mmHg (35.0-45.0); Potassium 3.9 mmol/L (3.4-4.7); T. Carbon Dioxide 28.3 mmol/L (1.0-85.0); pH (Venous) 7.347 (7.35-7.45); vO2 Saturation-calc 46.5 % (94-98)
[2017-07-31] MEDS ORDERED: ISOVUE-370 76%-LOCM 1 ML ONE (14:45)
[2017-07-31 15:56] LABS: Lactic Acid 2.8 mmol/L (0.5-2.2)
[2017-07-31] MEDS: Morphine 4 MG/ML VIAL SLOW IVP PRN (19:45)
[2017-07-31] MEDS ORDERED: Ondansetron ODT 4 MG TAB PO PRN (19:47)
[2017-07-31] MEDS ORDERED: Ondansetron HCl/PF 4 MG/2 ML Vial IVP PRN (19:47)
[2017-07-31] MEDS ORDERED: Morphine 4 MG/ML Carpuject SLOW IVP PRN (19:47)
[2017-07-31] MEDS ORDERED: Acetaminophen 500 MG TAB PO PRN (19:47)
[2017-07-31] MEDS ORDERED: cloNIDine 0.1 MG TAB PO PRN (19:47)
[2017-07-31] MEDS ORDERED: traMADol HCl 50 MG TAB PO PRN (19:47)
[2017-07-31] MEDS ORDERED: Dextrose 5% in Water 1,000 ML IV PRN (19:47)
[2017-07-31] MEDS ORDERED: Dextrose 50% Abboject 50 ML SYRINGE SLOW IVP PRN (19:47)
[2017-07-31] MEDS ORDERED: HumaLOG 300 UNITS/3 ML VIAL SC PRN (19:47)
[2017-07-31] MEDS ORDERED: hydrALAZINE 20 MG/ML VIAL SLOW IVP PRN (19:47)
[2017-07-31] MEDS ORDERED: Morphine 10 MG/ML VIAL SLOW IVP PRN (20:14)
[2017-07-31] MEDS: HYDROcodone/Acetaminophen 10/325 mg Tablet PO PRN (20:49)
[2017-07-31] MEDS: Sodium Chloride 0.9% 1,000 ML IV SCH (20:49)
[2017-07-31] MEDS: Carvedilol 6.25 MG TAB PO SCH (20:50)
[2017-07-31] MEDS: Baclofen 10 MG TAB PO SCH (20:50)
[2017-07-31] MEDS: Famotidine 20 MG TAB PO SCH (20:51)
[2017-07-31] MEDS: Vancomycin HCl 1 GM in Premix Bag 1 BAG IVPB SCH (23:00)
[2017-07-31] MEDS: Piperacillin/Tazobactam 3.375 GM in Sodium Chloride 0.9% 100 ML IVPB SCH (23:02)
[2017-07-31 23:21] VITALS: BMI 26.0
--- NOTE | 2017-08-01 03:09 | HP ---
DATE OF ADMISSION: 07/31/2017 PRIMARY CARE PHYSICIAN: Dr. Tejas Maxwell. CHIEF COMPLAINT: Question of altered mental status. HISTORY OF PRESENT ILLNESS: This is a 72-year-old male who was recently admitted to [facility] from 07/21/2017 to 07/27/2017 for metabolic encephalopathy of unclear brooke ology, likely multifactorial. The patient was also diagnosed with urinary tract infection; however, no specific cultures were obtained showing a significant organism. The patient had been treated with IV antibiotic therapy, which was subsequently discontinued prior to discharge. The patient with kno wn longstanding history of severe peripheral vascular disease, large decubitus ulcerations of his low er extremities as well as gangrenous changes of all toes in the left foot and right great toe. 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 The patient currently has an open wound in the abdominal area with wound VAC, receiving home health services for wound care and wound V AC management. The patient states he is essentially bed bound, needing assistance with a board slide to a wheelchair, but needs maximal assistance for transfers. The patient denies being at a retirement facility and receives all of his care at home with the assistance of home health and his . The apparently had reported to the ER personnel noticing change in mental status after the pa tient was last seen normal approximately 3:00 a.m. on 07/31/2017. The patient was difficult to arous e per report and was not responding when EMS personnel arrived to the home. The patient admits to multiple chronic medical issues, but denies any specific fever, chills, recent fall or injury. In the emergency room, the patient underwent an extensive evaluation including CT of the brain showing no acute process. Portable chest imaging showed bibasilar atelectasis and CT of the abdomen and pelv is showed chronic changes with some evidence of loculated fluid collection in the right lung base wit h atelectasis. Metabolic screening showed mild leukocytosis of 11.7 with lactic acidosis of 2.7-2.8. The patient received Narcan 0.1 mg x1 dose in addition to vancomycin 1.5 grams and meropenem 1 gram . Urinalysis showed suspicion for possible infection and the patient does have a chronic indwelling Mandel catheter. The patient was transferred to the Intermediate Care Unit for further evaluation. PAST MEDICAL HISTORY: 1. Recurrent metabolic encephalopathy, multifactorial. 2. History of hypoxic respiratory failure. 3. Chronic diastolic heart failure. 4. Diabetes mellitus type 2 on oral hypoglycemics. 5. Multiple decubitus ulcerations of bilateral lower extremities. 6. 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 7. Severe physical deconditioning. 8. Severe peripheral vascular disease with necrosis of toes and multiple ulcerations of the lower ex tremities. 9. Status post cardiac arrest. 10. 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 11. Hypertension. 12. Chronic obstructive pulmonary disease. 13. Coronary artery disease. PAST SURGICAL HISTORY: 1. Status post hip fusion. 2. 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 3. Status post tonsillectomy. 4. Status post bypass grafting to the left lower extremity. CURRENT MEDICATIONS: Based on discharge summary, 07/27/2017. 1. Vitamin C 1000 mg p.o. daily. 2. Enteric-coated aspirin 81 mg p.o. daily. 3. Lipitor 40 mg p.o. daily. 4. Vitamin B12 of 1000 mcg p.o. daily. 5. Duloxetine 60 mg p.o. daily. 6. Pepcid 20 mg p.o. b.i.d. 7. Lasix 40 mg p.o. daily. 8. Gabapentin 300 mg p.o. b.i.d. 9. Levemir 36 units subcutaneously b.i.d. 10. DuoNeb 3 mL nebulized q.4 hours p.r.n. 11. Protonix 40 mg p.o. daily. 12. Tamsulosin 0.4 mg p.o. daily. 13. Tramadol 50 mg p.o. q.4. p.r.n. 14. Carvedilol 6.25 mg p.o. b.i.d. ALLERGIES: No known drug allergies. FAMILY HISTORY: Reviewed and negative. SOCIAL HISTORY: The patient is , residing in [place], [place]. Extensive tobacco use, quitting i n the last year. Occasional alcohol use. No illicit drug use. Nonambulatory but does transfer with use of a slide board and maximal assistance. REVIEW OF SYSTEMS: Otherwise negative except as stated per HPI: The following complete review of systems was negative, unless otherwise mentioned in the HPI or below : Constitutional: Weight loss or gain, ability to conduct usual activities. Skin: Rash, itching. Eyes: Double vision, pain. ENT/Mouth: Nose bleeding, neck stiffness, pain, tenderness. Cardiovascular: Palpitations, dyspnea on exertion, orthopnea. Respiratory: Shortness of breath, wheezing, cough, hemoptysis, fever or night sweats. Gastrointestinal: Poor appetite, abdominal pain, heartburn, nausea, vomiting, constipation, or diarr hea. Genitourinary: Urgency, frequency, dysuria, nocturia. Musculoskeletal: Pain, swelling. Neurologic/Psychiatric: Anxiety, depression. Allergy/Immunologic: Skin rash, bleeding tendency. PHYSICAL EXAMINATION: VITAL SIGNS: On admission, blood pressure 132/54, pulse 84, respiratory rate 17, temperature 97.8 de grees Fahrenheit, O2 saturation 98% on room air. GENERAL APPEARANCE: This is a 72-year-old male, alert, and oriented x3 and no acute distre ss. HEENT: Pupils are equal, round, reactive to light and accommodation. Extraocular muscles are intact . No scleral icterus, no conjunctival injection. Nares patent. OP is clear. Oral mucosa dry appea ring. NECK: Supple, no cervical adenopathy, no thyromegaly, no carotid bruits, no JVD appreciated. Cervic al spine full active and passive range of motion. No meningeal signs appreciated. LUNGS: Diminished breath sounds in the bases with coarse breath sounds, scattered in bilateral lung brennan. CARDIOVASCULAR: S1, S2 with distant heart sounds. ABDOMEN: Rounded with colostomy in the left upper quadrant. Midline wound VAC in place. Mild tende rness to palpation in the peripheral margins of the wound VAC. EXTREMITIES: Pulses not palpated at the dorsalis pedis and posterior tibial distally bilaterally. G angrene with mummified changes to the all toes of the left foot as well as right great toe. Large ul cerations of the bilateral lower extremities with purulent drainage. NEUROLOGIC: Cranial nerves II-XII are grossly intact. The patient is alert and oriented x3 currentl y. Moves all extremities on command. Not observed ambulatory. PERTINENT LABORATORY AND X-RAY FINDINGS: Basic metabolic profile within normal limits. Lactic acid level ranged between 2.7 to 2.8. LFTs within normal limits. Troponin negative x1. Albumin 3.5. CB C showed a white blood cell count of 11.7, hemoglobin 11, hematocrit 37, platelet count is 365 with n ormal differential. Urinalysis showed positive protein, positive glucose and large leukocyte esteras e with greater than 50 to too numerous to count WBCs per high power field, 4-6 squamous epithelial ce lls, 2+ bacteria. Portable chest x-ray dated 07/31/2017, showed bibasilar atelectasis with pleural e ffusions. CT of the brain without contrast dated 07/31/2017, showed no acute intracranial process. Mild chronic ischemic changes noted. CT of the abdomen and pelvis dated 07/31/2017, showed loculated fluid collection of the right lung base with atelectasis. Mesenteric stranding and minimal fluid de nsity in the left abdomen significantly improved from prior CT imaging. Stable abdominal aortic aneu rysm. EKG dated 07/31/2017 by my interpretation shows sinus mechanism with heart rates in the 70s. Normal R-wave progression noted in the precordial leads. Normal axis. No acute ST-T wave changes ap preciated. ASSESSMENT AND PLAN: 1. Acute metabolic encephalopathy, mild. Appears to have improved after transfer from the emergency room. Likely multifactorial including potential infectious process. Continue general supportive ma nagement as outlined below. 2. Severe peripheral vascular disease with multiple open ulcerations of lower extremities. We will initiate vancomycin 1 gram IV q.12 h. with additional Zosyn 3.375 grams IV q.6 h. and Levaquin 750 mg daily. Wound Care for local care and evaluation. 3. Gangrene of bilateral feet. We will continue supportive management. Pain control as clinically indicated. Wound care evaluation. 4. Urinary tract infection. Suspected given urinalysis report. Continue IV antibiotics as stated p reviously. Await final urine culture results. 5. Abdominal wound with wound VAC. We will continue wound VAC care with wound care team evaluation daily. New negative pressure dressing change during admission. 6. Diabetes mellitus type 2. Insulin sliding scale for reflexive coverage. Accu-Cheks before meals and at bedtime. ADA diet. 7. Severe deconditioning. Physical therapy, occupational therapy evaluation for functional assessme nt. The patient likely will benefit from retirement facility placement due to repetitive admiss ions. 8. Prophylaxis. Hold SCDs and continue Lovenox 40 mg subcu daily. Protonix 40 mg p.o. daily. Woun d Care physical and occupational therapy evaluation. 9. Case management consult for placement options. 10. Code status: DO NOT RESUSCITATE. Surrogate medical decision maker is patient's spouse.
[2017-08-01 04:38] LABS: ALT (SGPT) 18 U/L (8-55); AST (SGOT) 14 U/L (5-34); Albumin 2.9 g/dL (3.4-4.8); Alkaline Phosphatase 87 U/L (40-150); Anion Gap 16 mmol/L (10-20); BUN (Urea Nitrogen) 18 mg/dL (8.4-25.7); Band 3 % (5-11); Bilirubin, Total 0.5 mg/dL (0.2-1.2); Calc. Creatinine Clearance 78 mL/min (70-130); Carbon Dioxide 23 mmol/L (23-31); Chloride 100 mmol/L (98-107); Estimated GFR-MDRD 80; Globulin 4.1 g/dL (2.4-3.5); Glucose 313 mg/dL (83-110); Hemoglobin 9.7 g/dL (14.0-18.0); Lymphocytes 20 % (21-51); MDiff Complete? YES; Mean Corpuscular HGB CONC 32.1 g/dL (32.0-36.0); Mean Corpuscular Hemoglobin 28.1 pg (27.0-31.0); Mean Corpuscular Volume 87.4 fl (80.0-94.0); Mean Platelet Volume 7.4 fL (7.4-10.4); Monocytes 3 % (0-10); Neutrophil 74 % (42-75); Platelet Count 324 thou/uL (130-400); Potassium 4.5 mmol/L (3.5-5.1); RBC Distribution Width 16.7 % (11.5-14.5); Red Blood Cell (RBC) Count 3.44 mill/uL (4.70-6.10); Sodium 134 mmol/L (136-145); White Blood Cell (WBC) Count 9.5 thou/uL (4.8-10.8)
[2017-08-01] MEDS: HYDROcodone/Acetaminophen 10/325 mg Tablet PO PRN ×3 (04:44→23:01)
[2017-08-01] MEDS: Piperacillin/Tazobactam 3.375 GM in Sodium Chloride 0.9% 100 ML IVPB SCH ×4 (06:14→23:01)
[2017-08-01] MEDS: HumaLOG 300 UNITS/3 ML VIAL SC PRN (06:15)
--- NOTE | 2017-08-01 08:34 | CON ---
DATE OF CONSULTATION: 08/01/2017 REASON FOR CONSULTATION: IMCU placement. HISTORY OF PRESENT ILLNESS: This is a 72-year-old male, who was admitted last night with a question of altered mental status. He has multiple medical problems including extensive vascular disease. He is a very poor historian. It is clear that he has been recently hospitalized for some type of colostomy procedure, but I am not sure where that operation took place. The patient cannot tell me where the operation was done. He has gangrene of every toe on his left foot and the large toe on his right foot. PAST MEDICAL HISTORY: 1. Peripheral vascular disease. 2. Metabolic encephalopathy. 3. Hypoxic respiratory failure. 4. Diastolic heart failure. 5. Diabetes mellitus, type 2. 6. Multiple decubitus ulcers and lower extremity ulcers. 7. Gangrene of all the toes in the left foot and the right great toe. 8. Deconditioning. 9. Cardiac arrest. 10. Ischemic bowel and ostomy placement. 11. Hypertension. 12. Chronic obstructive pulmonary disease. 13. Coronary artery disease. PAST SURGICAL HISTORY: 1. He has had a hip fusion. 2. He has had a sigmoid left colectomy with transverse colostomy 3. Tonsillectomy. 4. Bypass grafting to the left lower extremity. MEDICATIONS PRIOR TO ADMISSION: Vitamin C, enteric-coated aspirin, Lipitor, vitamin B12, duloxetine, Pepcid, Lasix, gabapentin, Levemir, DuoNeb, Protonix, tamsulosin, tramadol, carvedilol. ALLERGIES: None. SOCIAL HISTORY: He says he quit smoking in February. Does not consume alcohol. Does not use illicit drugs. He lives in [place]. FAMILY MEDICAL HISTORY: Unremarkable. REVIEW OF SYSTEMS: Remarkable for pain in his lower extremities and ability to ambulate, poor appetite, weight loss. A 12-point review of systems otherwise negative. PHYSICAL EXAMINATION: VITAL SIGNS: Temperature 99.0, pulse 73, blood pressure 112/45, respiratory rate 17, O2 sat 96% on room air. GENERAL: The patient is a disheveled-appearing male. Most obvious abnormalities are the gangrenous toes. HEENT: Pupils react. Sclerae icteric. Oropharynx clear. NECK: No palpable adenopathy, no bruits, no thyromegaly. LUNGS: Clear to auscultation without wheezing or rhonchi. CARDIAC: S1 and S2 regular without murmur, rub, or gallop. ABDOMEN: He has a colostomy on left side. He has a midline surgical dressing in place. EXTREMITIES: Left toes 1 through 5 ischemic and necrotic. Right great toe ischemic. He has bandages over both of his lower legs. LABORATORY DATA: White blood cell count 9.5, hematocrit 30.1, platelet count 324. PH 7.34, pCO2 of 48, pO2 of 27, it is a venous gas. Sodium 134, potassium 4.5, chloride 100, CO2 of 23, BUN 18, creatinine 0.9, glucose 313. ASSESSMENT: 1. Generalized deconditioning with extensive peripheral vascular disease and dry gangrene of all of his left toes and his right great toe. 2. Failure to thrive. 3. Recent abdominal surgery for ischemic bowel. RECOMMENDATIONS: This is a tough situation. He probably needs bilateral lower extremity amputations at least to the level of the knee. I would assume given the duration of all of this that he has seen surgeons for this before. He is currently on antibiotics for treatment of the gangrene. I do think the antibiotics will serve any purpose in salvaging his toes, but may help prevent bacteremia from the gangrenous sites. I have reviewed the medications and agree if the patient does not wish to receive aggressive care, then I would recommend palliative care consultation. In any event, the patient can probably be transferred to the surgical floor, as he is hemodynamically stable and does not require IMCU care. 70 minutes time spent on consultation. Of that 70 minutes, 50% of the time was spent with the patient and/or on the patient's unit [facility]
[2017-08-01] MEDS: Morphine 4 MG/ML VIAL SLOW IVP PRN ×2 (08:40→12:37)
[2017-08-01] MEDS: Baclofen 10 MG TAB PO SCH ×3 (08:46→20:58)
[2017-08-01] MEDS: Atorvastatin Calcium 40 MG TAB PO SCH (08:46)
[2017-08-01] MEDS: Tamsulosin HCl 0.4 MG CAP PO SCH ×2 (08:46→17:08)
[2017-08-01] MEDS: Furosemide 40 MG TAB PO SCH (08:46)
[2017-08-01] MEDS: Carvedilol 6.25 MG TAB PO SCH ×2 (08:46→20:58)
[2017-08-01] MEDS: Glimepiride 2 MG TAB PO SCH ×2 (08:46→17:08)
[2017-08-01] MEDS: Famotidine 20 MG TAB PO SCH ×2 (08:46→20:59)
[2017-08-01] MEDS: DULoxetine 60 MG CAP PO SCH (08:46)
[2017-08-01] MEDS: Enoxaparin Sodium 40 MG/0.4 ML SYRINGE SC SCH (08:47)
[2017-08-01] MEDS ORDERED: Prevnar 13-Val Conj/PF 0.5 ML SYRINGE IM ONE (09:00)
[2017-08-01] MEDS: Vancomycin HCl 1 GM in Premix Bag 1 BAG IVPB SCH (10:45)
[2017-08-01] MEDS: Sodium Chloride 0.9% 1,000 ML IV SCH ×2 (11:35→21:00)
--- NOTE | 2017-08-01 14:21 | PQF ---
CLINICAL DOCUMENTATION IMPROVEMENT CLARIFICATION FORM: ICD-10 Updated PLEASE DO AN ADDENDUM TO THE PROGRESS NOTE WITH ANY DOCUMENTATION UPDATES OR ADDITIONS AND CARRY THROUGH TO DC SUMMARY. THANK YOU. DATE: 08/01/17 ATTN: DR. PERDUE Please exercise your independent, professional judgment in responding to the clarification form. Clinical indicators are provided on the bottom of this form for your review Please check appropriate box(es): [ ] Sepsis due to: (Pna, UTI, gangrenous gall bladder, etc.) Due to: [ ] Device (please specify) [ ] Implant [ ] Graft [ ] Infusion [ ] SIRS due to non-infectious process (please specify etiology) [ ] with organ dysfunction [ ] without organ dysfunction [ ] Severe sepsis with acute organ dysfunction of: (Examples: respiratory failure, encephalopathy, acute kidney failure, other) [ ] Septic Shock [ x ] Localized infection without sepsis [ ] Other diagnosis [ ] Unable to determine In addition, please specify: Present on Admission (POA): [ x ] Yes [ ] No [ ] Unable to determine For continuity of documentation, please document condition throughout progress notes and discharge summary. Thank You. CLINICAL INDICATORS - SIGNS / SYMPTOMS / LABS CRITICORE TEMP 96.1 LACTIC ACID 2.7 ALTERED MENTAL STATUS RISKS: MULTIPLE WOUNDS UTI CHRONIC INDWELLING CATHETER TREATMENT: IV VANCOMYCIN (ER-PRESENT) IV MEROPENEM IV ZOSYN 4/3-PRESENT) IV LEVAQUIN (4/3-PRESENT) IV FLUIDS (This form is maintained as a part of the permanent medical record) 2014 [employer]. All Rights Reserved [facility]
--- NOTE | 2017-08-01 15:44 | PDOC.PN ---
- Subjective Encounter Start Date: 08/01/17 Encounter Start Time: 15:35 Subjective: f/u for multiple LE wounds, gangrene of toes, abd wound with wound vac -: and multifactorial encephalopathy. Overall feels ok and alert and -: oriented x 3. - Objective Resuscitation Status: Resuscitation Status DNR:Do Not Resuscitate MAR Reviewed: Yes Vital Signs & Weight: Vital Signs (12 hours) Temp Pulse Pulse Pulse Resp BP BP 08/01/17 12:38 98.2 F 69 20 08/01/17 09:20 76 71 121/58 L 08/01/17 08:46 127/40 L 08/01/17 07:48 98.6 F 76 20 08/01/17 03:55 99.0 F 73 17 BP BP Pulse Ox Pulse Ox Pulse Ox 08/01/17 12:38 136/45 L 100 08/01/17 09:20 101/38 L 100 97 08/01/17 08:46 08/01/17 07:48 104/57 L 98 08/01/17 03:55 112/45 L Weight Admit Weight 171 lb 4.528 oz Weight 171 lb 4.533 oz I&O: 07/31/17 08/01/17 08/02/17 06:59 06:59 06:59 Intake Total 1452 Output Total 950 Balance 502 Result Diagrams: 08/01/17 03:31 08/01/17 03:31 Additional Labs: Accuchecks 08/01/17 08/01/17 07/31/17 11:53 05:34 20:42 POC Glucose 294 H 341 H 154 H Microbiology 07/31/17 10:19 Urine hanna catheter Urine Culture - Preliminary NO GROWTH AT 24 HOURS 07/31/17 09:54 Venous blood - Right Hand Blood Culture - Preliminary Specimen has been received and culture in progress. No Growth to date. 07/31/17 09:54 Venous blood - Left Hand Blood Culture - Preliminary Specimen has been received and culture in progress. No Growth to date. Laboratory Tests 07/31/17 07/31/17 07/31/17 09:54 09:54 15:34 WBC 11.7 H Hgb 11.3 L Lactic Acid 2.7 H 2.8 H EKG Reviewed by me: Yes (Tele - SR) Phys Exam - Physical Examination Constitutional: NAD HEENT: PERRLA, oral pharynx no lesions Neck: no JVD, supple Respiratory: no wheezing, clear to auscultation bilateral Cardiovascular: RRR abd wound vac in place, LUQ colostomy intact Gastrointestinal: soft, non-tender, no distention, positive bowel sounds non-palpable distal pulses at DP/PT bilat dry gangrene of all toes L foot and R great toe Musculoskeletal: edema present Neurological: moves all 4 limbs Psychiatric: A&O x 3 Deviation from normal: multiple ulcers bilat LE's, see wound care photos Skin: normal turgor, cap refill <2 seconds Dx/Plan (1) Acute metabolic encephalopathy Code(s): G93.41 - METABOLIC ENCEPHALOPATHY Status: Acute Comment: Resolved with supportive mgmt, continue mgmt outlined below, likely a multifactorial process (2) Ulcers of both lower extremities Code(s): L97.919 - NON-PRS CHRONIC ULC UNSP PRT OF R LOW LEG W UNSP SEVERITY; L97.929 - NON-PRS CHRONIC ULC UNSP PRT OF L LOW LEG W UNSP SEVERITY Status: Acute Qualifiers: Non-pressure ulcer stage: with fat layer exposed Qualified Code(s): L97.912 - Non-pressure chronic ulcer of unspecified part of right lower leg with fat layer exposed; L97.922 - Non-pressure chronic ulcer of unspecified part of left lower leg with fat layer exposed; L97.922 - Non-pressure chronic ulcer of unspecified part of left lower leg with fat layer exposed; L97.922 - Non-pressure chronic ulcer of unspecified part of left lower leg with fat layer exposed; L97.922 - Non-pressure chronic ulcer of unspecified part of left lower leg with fat layer exposed Comment: Severe ulcerations, chronic, WCT for local care, likely needs amputation (3) Gangrenous toe Code(s): I96 - GANGRENE, NOT ELSEWHERE CLASSIFIED Status: Chronic Comment: dry gangrene, likely needs amputation to avoid bacteremia and recurrent proximal infections, continue Vancomycin, Levaquin and Zosyn another 24h (4) UTI (urinary tract infection) Status: Suspected Comment: Continue IV Levaquin, initial cx negative, follow clinically (5) Wound, open, abdominal wall, anterior Code(s): S31.109A - UNSP OPN WND ABD WALL, UNSP Q W/O PENET PERIT CAV, INIT Status: Chronic Comment: Wound vac application, local care (6) Physical deconditioning Code(s): R53.81 - OTHER MALAISE Status: Chronic Comment: Severe deconditioning, PT/OT for mobilization, SNF options - Plan plan discussed w/ family, continue antibiotics, PT/OT, psychosocial rehabilitation counselor Continue IV Vancomycin, Zosyn and Levaquin with plans to de-escalate -: abx coverage in 24h -: WCT for local care of extensive ulcers, abd wound -: Gen surgery consult regarding LE gangrene -: Continue IVF's at 75ml/h * Pain control as tolerated * AM lab: BMP, CBC * Transfer to Medical floor
[2017-08-01 22:58] LABS: Vancomycin, Trough 18.6 ug/mL
[2017-08-02] MEDS: Vancomycin HCl 1 GM in Premix Bag 1 BAG IVPB SCH ×3 (00:01→23:53)
[2017-08-02 05:08] LABS: Band 5 % (5-11); Hemoglobin 9.3 g/dL (14.0-18.0); Lymphocytes 26 % (21-51); MDiff Complete? YES; Mean Corpuscular HGB CONC 31.9 g/dL (32.0-36.0); Mean Corpuscular Hemoglobin 27.9 pg (27.0-31.0); Mean Corpuscular Volume 87.5 fl (80.0-94.0); Monocytes 8 % (0-10); Neutrophil 60 % (42-75); PLT Morphology Comment Appears Adequate; Platelet Count 273 thou/uL (130-400); RBC Distribution Width 16.4 % (11.5-14.5); Red Blood Cell (RBC) Count 3.34 mill/uL (4.70-6.10); White Blood Cell (WBC) Count 9.8 thou/uL (4.8-10.8)
[2017-08-02 05:10] LABS: Anion Gap 9 mmol/L (10-20); BUN (Urea Nitrogen) 12 mg/dL (8.4-25.7); Calc. Creatinine Clearance 88 mL/min (70-130); Calcium 8.9 mg/dL (7.8-10.44); Carbon Dioxide 30 mmol/L (23-31); Chloride 102 mmol/L (98-107); Estimated GFR-MDRD Greater than 90; Glucose 160 mg/dL (83-110); Potassium 3.9 mmol/L (3.5-5.1); Sodium 137 mmol/L (136-145)
[2017-08-02] MEDS: Piperacillin/Tazobactam 3.375 GM in Sodium Chloride 0.9% 100 ML IVPB SCH ×4 (05:11→23:52)
[2017-08-02] MEDS: Baclofen 10 MG TAB PO SCH ×3 (08:56→21:59)
[2017-08-02] MEDS: Enoxaparin Sodium 40 MG/0.4 ML SYRINGE SC SCH (08:56)
[2017-08-02] MEDS: DULoxetine 60 MG CAP PO SCH (08:56)
[2017-08-02] MEDS: Carvedilol 6.25 MG TAB PO SCH ×2 (08:56→21:59)
[2017-08-02] MEDS: Atorvastatin Calcium 40 MG TAB PO SCH (08:57)
[2017-08-02] MEDS: Furosemide 40 MG TAB PO SCH (08:57)
[2017-08-02] MEDS: Famotidine 20 MG TAB PO SCH ×2 (08:57→22:33)
[2017-08-02] MEDS: Glimepiride 2 MG TAB PO SCH ×2 (08:57→17:25)
[2017-08-02] MEDS: Tamsulosin HCl 0.4 MG CAP PO SCH ×2 (08:57→15:39)
--- NOTE | 2017-08-02 09:41 | PRG ---
DATE OF SERVICE: 08/02/2017 The patient says he feels a little better this morning. PHYSICAL EXAMINATION: VITAL SIGNS: Temperature is 98.3, pulse 69, blood pressure 119/60, O2 sat 98%. HEENT: Unremarkable. NECK: No JVD. LUNGS: Clear. CARDIAC: S1 and S2 regular. ABDOMEN: Soft, nontender. EXTREMITIES: Continued necrosis of the toes. He has bandages on both calf regions. LABORATORY DATA: White blood cell count 9.8, hematocrit 29.3, platelet count 273. Sodium 137, potas sium 3.9, chloride 102, CO2 30, BUN 12, creatinine 0.8, glucose 160. Cultures show no growth to date . ASSESSMENT: 1. Sepsis syndrome from gangrenous toes and lower extremities. 2. Generalized deconditioning. 3. Recent abdominal surgery for ischemic bowel. PLAN: The patient likely needs amputations of his lower extremities. The family tells me Dr. Katiuska kinney is supposed to come by and see him today. In the meantime, he is continuing antibiotics. His prog nosis is poor.
[2017-08-02] MEDS: HYDROcodone/Acetaminophen 10/325 mg Tablet PO PRN (12:32)
[2017-08-02] MEDS: HumaLOG 300 UNITS/3 ML VIAL SC PRN ×2 (12:36→17:30)
[2017-08-02] MEDS: Sodium Chloride 0.9% 1,000 ML IV SCH (14:24)
--- NOTE | 2017-08-02 16:28 | PDOC.PN ---
- Subjective Encounter Start Date: 08/02/17 Encounter Start Time: 16:25 Subjective: f/u for LE ulcers and gangrene on current Levaquin, -: Vancomycin and Zosyn. Receiving WCT for multiple ulcerations, -: abd wound with vac. Feels better overall. No fever or chills. - Objective Resuscitation Status: Resuscitation Status DNR:Do Not Resuscitate MAR Reviewed: Yes Vital Signs & Weight: Vital Signs (12 hours) Temp Pulse Resp BP BP Pulse Ox 08/02/17 12:22 98.2 F 68 20 154/67 H 98 08/02/17 08:56 161/69 H 08/02/17 08:50 97.9 F 69 12 94 L 08/02/17 08:00 97.9 F 69 12 161/69 H 94 L Weight Admit Weight 171 lb 4.528 oz Weight 171 lb 4.533 oz I&O: 08/01/17 08/02/17 08/03/17 06:59 06:59 06:59 Intake Total 1452 951 Output Total 950 3600 0 Balance 502 -2649 0 Result Diagrams: 08/02/17 04:39 08/02/17 04:39 Additional Labs: Accuchecks 08/02/17 08/02/17 08/01/17 11:23 04:44 20:25 POC Glucose 275 H 202 H 218 H 08/01/17 16:29 POC Glucose 232 H Microbiology 07/31/17 10:19 Urine hanna catheter Urine Culture - Final Yeast species 07/31/17 10:19 Urine hanna catheter Urine Culture - Preliminary NO GROWTH AT 24 HOURS 07/31/17 09:54 Venous blood - Right Hand Blood Culture - Preliminary Specimen has been received and culture in progress. No Growth to date. 07/31/17 09:54 Venous blood - Left Hand Blood Culture - Preliminary Specimen has been received and culture in progress. No Growth to date. Laboratory Tests 07/31/17 07/31/17 07/31/17 09:54 09:54 15:34 WBC 11.7 H Hgb 11.3 L Lactic Acid 2.7 H 2.8 H Phys Exam - Physical Examination Constitutional: NAD HEENT: PERRLA, oral pharynx no lesions Neck: no JVD, supple Respiratory: no wheezing, clear to auscultation bilateral Cardiovascular: RRR wound vac in place in midline, colostomy in LUQ Gastrointestinal: soft, non-tender, no distention, positive bowel sounds multiple large ulcerations on LE's with exposed muscle and fat layer dry gangrene of all L toes and R great toe Neurological: moves all 4 limbs Psychiatric: A&O x 3 Skin: normal turgor, cap refill <2 seconds Dx/Plan (1) Acute metabolic encephalopathy Code(s): G93.41 - METABOLIC ENCEPHALOPATHY Status: Acute Comment: Resolved with supportive mgmt, continue mgmt outlined below, likely a multifactorial process (2) Ulcers of both lower extremities Code(s): L97.919 - NON-PRS CHRONIC ULC UNSP PRT OF R LOW LEG W UNSP SEVERITY; L97.929 - NON-PRS CHRONIC ULC UNSP PRT OF L LOW LEG W UNSP SEVERITY Status: Acute Qualifiers: Non-pressure ulcer stage: with fat layer exposed Comment: Severe ulcerations, chronic, WCT for local care, likely needs amputation (3) Gangrenous toe Code(s): I96 - GANGRENE, NOT ELSEWHERE CLASSIFIED Status: Chronic Comment: dry gangrene, likely needs amputation to avoid bacteremia and recurrent proximal infections, continue Vancomycin, Levaquin and Zosyn another 24h (4) UTI (urinary tract infection) Status: Suspected Comment: Continue IV Levaquin, initial cx negative, follow clinically (5) Wound, open, abdominal wall, anterior Code(s): S31.109A - UNSP OPN WND ABD WALL, UNSP Q W/O PENET PERIT CAV, INIT Status: Chronic Comment: Wound vac application, local care (6) Physical deconditioning Code(s): R53.81 - OTHER MALAISE Status: Chronic Comment: Severe deconditioning, PT/OT for mobilization, SNF options - Plan plan discussed w/ family, continue antibiotics, PT/OT, social contact worker Stable currently -: Saline Lock IVF's -: Pain control as clinically tolerated -: WCT for local care and wound vac changes -: Consult Gen surgery for consideration of ampuation * De-escalate IV abx regimen in next 24h
[2017-08-03] MEDS: HYDROcodone/Acetaminophen 10/325 mg Tablet PO PRN ×4 (00:13→23:15)
[2017-08-03] MEDS: Sodium Chloride 0.9% 1,000 ML IV SCH ×2 (05:02→10:59)
[2017-08-03] MEDS: Piperacillin/Tazobactam 3.375 GM in Sodium Chloride 0.9% 100 ML IVPB SCH ×3 (06:08→18:30)
--- NOTE | 2017-08-03 08:28 | PRG ---
DATE OF SERVICE: 08/03/2017 He is lying in bed asleep, looks about the same. PHYSICAL EXAMINATION: VITAL SIGNS: Temperature 98.9, pulse 85, respiration 16, O2 sat 93%, blood pressure 131/70. EXTREMI TIES: His ischemic toes are unchanged. LUNGS: Clear. CARDIAC: S1 and S2 regular. ABDOMEN: Soft. No new labs were done today. ASSESSMENT: Severe peripheral vascular disease. PLAN: General Surgery is going to see him at some point. There is not much we are doing at this jacquelin e for the patient in terms of pulmonary critical care. If for some reason, the patient ends up havin g surgery and you need us to get involved again, please recall.
[2017-08-03] MEDS: Glimepiride 2 MG TAB PO SCH ×2 (08:56→16:44)
[2017-08-03] MEDS: Famotidine 20 MG TAB PO SCH ×2 (08:57→22:29)
[2017-08-03] MEDS: Furosemide 40 MG TAB PO SCH (08:57)
[2017-08-03] MEDS: Baclofen 10 MG TAB PO SCH ×3 (08:57→22:32)
[2017-08-03] MEDS: DULoxetine 60 MG CAP PO SCH (08:57)
[2017-08-03] MEDS: Carvedilol 6.25 MG TAB PO SCH ×2 (08:57→22:31)
[2017-08-03] MEDS: Atorvastatin Calcium 40 MG TAB PO SCH (08:58)
[2017-08-03] MEDS: Enoxaparin Sodium 40 MG/0.4 ML SYRINGE SC SCH (08:58)
[2017-08-03] MEDS: Tamsulosin HCl 0.4 MG CAP PO SCH ×2 (08:58→16:44)
[2017-08-03] MEDS: Vancomycin HCl 1 GM in Premix Bag 1 BAG IVPB SCH (10:59)
--- NOTE | 2017-08-03 14:20 | PDOC.PN ---
- Subjective Encounter Start Date: 08/03/17 Encounter Start Time: 14:10 Subjective: f/u for dry gangrene of L toes and R great toe on current Levaquin, -: Zosyn and Vancomycin. Feels ok overall but c/o being hungry. No CP -: SOB or fever. - Objective Resuscitation Status: Resuscitation Status DNR:Do Not Resuscitate MAR Reviewed: Yes Vital Signs & Weight: Vital Signs (12 hours) Temp Pulse Resp BP BP Pulse Ox 08/03/17 12:00 98.9 F 85 16 130/71 93 L 08/03/17 08:57 130/71 08/03/17 08:55 98.9 F 85 16 93 L 08/03/17 07:40 98.9 F 85 16 131/70 93 L Weight Admit Weight 171 lb 4.528 oz Weight 171 lb 4.533 oz I&O: 08/02/17 08/03/17 08/04/17 06:59 06:59 06:59 Intake Total 951 1400 Output Total 3600 1999 100 Balance -2649 -1999 1300 Result Diagrams: 08/02/17 04:39 08/02/17 04:39 Additional Labs: Accuchecks 08/03/17 08/02/17 08/02/17 04:58 19:55 16:54 POC Glucose 169 H 227 H 227 H Phys Exam - Physical Examination Constitutional: NAD HEENT: PERRLA, oral pharynx no lesions Neck: no JVD, supple Respiratory: no wheezing, clear to auscultation bilateral Cardiovascular: RRR wound vac in midline Gastrointestinal: soft, non-tender, no distention, positive bowel sounds large ulcerations and exposed muscle/fat of LE's, dry gangrene of all L toes and R great toe generalized muscle atrophy Neurological: moves all 4 limbs Psychiatric: A&O x 3 Skin: normal turgor, cap refill <2 seconds Dx/Plan (1) Acute metabolic encephalopathy Code(s): G93.41 - METABOLIC ENCEPHALOPATHY Status: Acute Comment: Resolved with supportive mgmt, continue mgmt outlined below, likely a multifactorial process (2) Ulcers of both lower extremities Code(s): L97.919 - NON-PRS CHRONIC ULC UNSP PRT OF R LOW LEG W UNSP SEVERITY; L97.929 - NON-PRS CHRONIC ULC UNSP PRT OF L LOW LEG W UNSP SEVERITY Status: Acute Qualifiers: Non-pressure ulcer stage: with fat layer exposed Comment: Severe ulcerations, chronic, WCT for local care, likely needs amputation but surgery states no acute need for amputation (3) Gangrenous toe Code(s): I96 - GANGRENE, NOT ELSEWHERE CLASSIFIED Status: Chronic Comment: dry gangrene, likely needs amputation to avoid bacteremia and recurrent proximal infections, continue Vancomycin, Levaquin and Zosyn another 24h (4) UTI (urinary tract infection) Status: Suspected Comment: Continue IV Levaquin, initial cx negative, follow clinically (5) Wound, open, abdominal wall, anterior Code(s): S31.109A - UNSP OPN WND ABD WALL, UNSP Q W/O PENET PERIT CAV, INIT Status: Chronic Comment: Wound vac application, local care (6) Physical deconditioning Code(s): R53.81 - OTHER MALAISE Status: Chronic Comment: Severe deconditioning, PT/OT for mobilization, SNF options - Plan plan discussed w/ family, continue antibiotics, PT/OT, social media editor Stable currently -: Continue IV abx another 24h then de-escalate coverage -: WCT for local care -: Will need amputation in the future but likely will continue with repetitive -: admissions related to infection * CM for dispo planning
--- NOTE | 2017-08-03 16:12 | CON ---
DATE OF CONSULTATION: 08/03/2017 CONSULTING PHYSICIAN: Dr. Mani Arroyo. REASON FOR CONSULTATION: Bilateral lower extremity ulcers with foot gangrene. HISTORY OF PRESENT ILLNESS: The patient is a chronically ill 72-year-old white male. He is well kno wn to myself from prior care. I performed laparotomy for what proved to be necrotic left colon with perforation and fecal peritonitis in 02/2017. He had a fairly lengthy hospitalization, but he surviv ed the operation. He still has a left-sided colostomy. His wound from that operation is still not c ompletely healed (five months later). He still has a wound VAC on that. He has been cared for at [facility] by his with home health nursing. I saw him in April when he returned to the hospital with a large infected necrotic sacral decubitus ulcer. I performed incision and drainage on this and he has been undergoing wound care for the past two and a half months for that. At that time, he also had multiple gangrenous lesions on his lower extremities. He had dry gangrene involving all toes of the left foot and most of the right great toe. He had pressure ulcers on the l ateral aspect of each calf. He was seen at that time by his vascular surgeon, Dr. Anthony King, who asserted there is unfortunately nothing further to do to improve his vascular inflow to his legs. Since he had no acute infection associated with his lower extremities. He was discharged home and booker s undergone wound care at home. He was readmitted to the hospital on 07[facility]31/[facility] There is some question of altered mental status. He was felt to have some acute metabolic encephalopathy with other medical problems and was admitted to the hospital. He is stabilized with appropriate supp ortive measures. I am consulted at this time in regards to his ongoing care of his numerous wounds. Patient and states that he has not been ambulating at all. He denies any pain in his legs. PAST MEDICAL HISTORY: 1. History of obesity. He appears to have lost a substantial amount of weight. 2. Diabetes mellitus. 3. History of heavy tobacco abuse, although he has not smoked over the course of the past 4 months. 4. Hyperlipidemia. 5. Coronary artery disease. 6. Peripheral vascular disease with bypass and stent placement previously. 7. Coronary artery disease. 8. Chronic obstructive pulmonary disease. 9. Hypertension. 10. Depression. PAST SURGICAL HISTORY: 1. History of Pia's gangrene in 2004. 2. Left hip replacement in 2013 with repeat operation in 2014. 3. Left carotid endarterectomy in 2010 with redo endarterectomy in 2016. 4. Femoral popliteal artery bypass on his left leg in 2014. 5. Prior colon resection. 6. Tonsillectomy. 7. Spine stimulator. 8. Esophageal dilatation. 9. Laparotomy for necrotic colon perforation in 02/2017. ALLERGIES: No known drug allergies. MEDICATIONS: Numerous, included in the medical record. PERSONAL/SOCIAL HISTORY: He is . His is present at bedside. He has extensive tobacco h istory, but he quit 5 months ago. He is nonambulatory, but does transfer. REVIEW OF SYSTEMS: Otherwise, unremarkable. FAMILY HISTORY: Noncontributory. PHYSICAL EXAMINATION: VITAL SIGNS: He is afebrile, pulse is 85, blood pressure 130/71. GENERAL: This is a well-developed, well-nourished white male resting in bed in no acute distress. H e is alert and interactive. HEENT: Unremarkable. NECK: Supple. LUNGS: Clear to auscultation. CARDIAC: Regular rate and rhythm. ABDOMEN: Soft, nontender, nondistended. Wound VAC is present in the midline wound. VAC dressing is intact over sacral decubitus ulcer and this is not examined at this time. EXTREMITIES: The patient has persistent dry gangrene involving all of the toes of his left foot. On his right foot, there is dry gangrene of most of the right great toe. He has an area of dry gangren e involving the heel of the left foot as well. Patient has full thickness wounds on the lateral aspe ct of each calf. On the left side, this is about 4 x 3 cm with underlying devitalized muscle visible . There is no significant granulation tissue. On the right leg, the ulcer is much larger measuring about 12 cm in length by about 4 cm in width. Again, there is no viable granulation tissue within th e wound. There is some eschar associated with the desiccated muscle in the center. There is no evid ence of purulence or infection in any location on his legs. LABORATORY DATA: His white blood cell count has been within normal limits. His hemoglobin is low at 9.3. He does not have a significant left shift. Electrolytes are unremarkable. He has preserved r enal function. Glucose levels have been elevated. ASSESSMENT: Patient with multiple areas of ischemic disease of lower extremities. I have reiterated to him and his that if he comes to any surgical procedure, it would have to be an above-knee am putation and he will eventually need this bilaterally. For now with no significant pain or infection associated with these areas, surgery is not mandatory. They inquired regarding use of the prosthesi s after surgery and I informed him that he will never be a candidate for prosthesis utilization as he will not have the strength and endurance to walk with an above knee prosthesis bilaterally. Since he is stable at this time and surgery is not desired at this time, then I will revisit with him next week to recheck his sacral wound and his abdominal wound. They decided they wanted to proceed with bilateral above knee amputations. This could certainly be scheduled as well.
[2017-08-03] MEDS: HumaLOG 300 UNITS/3 ML VIAL SC PRN (16:45)
[2017-08-04] MEDS ORDERED: VANCOMYCIN/ RENALLY ADJUST ANTIBIOTICS IVPB PRN (00:04)
[2017-08-04] MEDS: Vancomycin HCl 1 GM in Premix Bag 1 BAG IVPB SCH (00:14)
[2017-08-04] MEDS: Sodium Chloride 0.9% 1,000 ML IV SCH ×2 (00:49→09:10)
[2017-08-04] MEDS: Piperacillin/Tazobactam 3.375 GM in Sodium Chloride 0.9% 100 ML IVPB SCH ×4 (00:54→17:32)
[2017-08-04] MEDS: HumaLOG 300 UNITS/3 ML VIAL SC PRN ×3 (06:28→17:38)
[2017-08-04] MEDS: Tamsulosin HCl 0.4 MG CAP PO SCH ×2 (08:34→15:59)
[2017-08-04] MEDS: Glimepiride 2 MG TAB PO SCH ×2 (08:35→17:32)
[2017-08-04] MEDS: Enoxaparin Sodium 40 MG/0.4 ML SYRINGE SC SCH (08:37)
[2017-08-04] MEDS: Baclofen 10 MG TAB PO SCH ×3 (08:38→21:31)
[2017-08-04] MEDS: DULoxetine 60 MG CAP PO SCH (08:38)
[2017-08-04] MEDS: Furosemide 40 MG TAB PO SCH (08:39)
[2017-08-04] MEDS: Famotidine 20 MG TAB PO SCH ×2 (08:39→21:31)
[2017-08-04] MEDS: Atorvastatin Calcium 40 MG TAB PO SCH (08:39)
[2017-08-04] MEDS: Carvedilol 6.25 MG TAB PO SCH ×2 (08:42→21:31)
[2017-08-04] MEDS: Morphine 4 MG/ML VIAL SLOW IVP PRN (09:20)
[2017-08-04] MEDS: Vancomycin HCl 750 MG in Sodium Chloride 0.9% 250 ML 250 ML IVPB SCH ×2 (09:59→23:43)
--- NOTE | 2017-08-04 14:28 | PDOC.PN ---
- Subjective Encounter Start Date: 08/04/17 Encounter Start Time: 09:30 Patient is seen today, alert and oriented. No other concerns noted. Discussed with , who wants to take him home with Home health. Pt evaluating at bedside now. - Objective Resuscitation Status: Resuscitation Status DNR:Do Not Resuscitate MAR Reviewed: Yes Vital Signs & Weight: Vital Signs (12 hours) Temp Pulse Resp BP BP Pulse Ox 08/04/17 13:51 98.8 F 89 18 112/69 98 08/04/17 08:42 193/88 H 08/04/17 08:00 98.2 F 64 16 213/84 H 94 L Weight Admit Weight 171 lb 4.528 oz Weight 171 lb 4.533 oz I&O: 08/03/17 08/04/17 08/05/17 06:59 06:59 06:59 Intake Total 2749 480 Output Total 1999 750 Balance -1999 1999 480 Result Diagrams: 08/02/17 04:39 08/02/17 04:39 Additional Labs: Accuchecks 08/04/17 08/04/17 08/03/17 11:45 05:32 20:43 POC Glucose 231 H 201 H 233 H 08/03/17 08/03/17 16:26 11:47 POC Glucose 209 H 203 H Radiology Reviewed by me: Yes Phys Exam - Physical Examination HEENT: PERRLA, moist MMs Neck: no nodes, no JVD Respiratory: no wheezing, no rales Cardiovascular: RRR, no significant murmur Gastrointestinal: soft, non-tender Musculoskeletal: no edema, pulses present Neurological: non-focal, normal sensation Psychiatric: normal affect, A&O x 3 Dx/Plan (1) Acute metabolic encephalopathy Code(s): G93.41 - METABOLIC ENCEPHALOPATHY Status: Acute Comment: Resolved with supportive mgmt, continue mgmt outlined below, likely a multifactorial process (2) Ulcers of both lower extremities Code(s): L97.919 - NON-PRS CHRONIC ULC UNSP PRT OF R LOW LEG W UNSP SEVERITY; L97.929 - NON-PRS CHRONIC ULC UNSP PRT OF L LOW LEG W UNSP SEVERITY Status: Acute Qualifiers: Non-pressure ulcer stage: with fat layer exposed Qualified Code(s): L97.912 - Non-pressure chronic ulcer of unspecified part of right lower leg with fat layer exposed; L97.922 - Non-pressure chronic ulcer of unspecified part of left lower leg with fat layer exposed; L97.922 - Non-pressure chronic ulcer of unspecified part of left lower leg with fat layer exposed; L97.922 - Non-pressure chronic ulcer of unspecified part of left lower leg with fat layer exposed; L97.922 - Non-pressure chronic ulcer of unspecified part of left lower leg with fat layer exposed Comment: Severe ulcerations, chronic, WCT for local care, likely needs amputation but surgery states no acute need for amputation (3) COPD exacerbation Code(s): J44.1 - CHRONIC OBSTRUCTIVE PULMONARY DISEASE W (ACUTE) EXACERBATION Status: Acute Comment: Duo nebs, abx, steroids (4) Decubitus ulcer, stage 4 with infection Code(s): L89.94 - PRESSURE ULCER OF UNSPECIFIED SITE, STAGE 4; L08.9 - LOCAL INFECTION OF THE SKIN AND SUBCUTANEOUS TISSUE, UNSP Status: Acute Comment: present on admission, over sacrum, cultures with gram positive cocci and some gram neg rods, on Rocephin and Vanc (5) CAD (coronary artery disease) Code(s): I25.10 - ATHSCL HEART DISEASE OF [place] CORONARY ARTERY W/O ANG PCTRS Status: Chronic (6) Diabetes type 2, uncontrolled Code(s): E11.65 - TYPE 2 DIABETES MELLITUS WITH HYPERGLYCEMIA Status: Chronic Comment: stable, continue SSI. (7) Gangrenous toe Code(s): I96 - GANGRENE, NOT ELSEWHERE CLASSIFIED Status: Chronic Comment: dry gangrene, and recurrent proximal infections, continue Vancomycin, Levaquin and Zosyn . (8) PVD (peripheral vascular disease) Code(s): I73.9 - PERIPHERAL VASCULAR DISEASE, UNSPECIFIED Status: Chronic (9) Physical deconditioning Code(s): R53.81 - OTHER MALAISE Status: Chronic Comment: Severe deconditioning, PT/OT for mobilization, SNF options (10) Wound, open, abdominal wall, anterior Code(s): S31.109A - UNSP OPN WND ABD WALL, UNSP Q W/O PENET PERIT CAV, INIT Status: Chronic Comment: Wound vac application, local care - Plan cont current plan of care, plan discussed w/ family, PT/OT, social media intern, out of bed/ambulate, DVT proph w/lovenox * . - Discharge Day Encounter end time: 10:05 Review of Systems - Review of Systems Constitutional: weakness, malaise Eyes: negative: Pain, Vision Change, Conjunctivae Inflammation, Eyelid Inflammation, Redness, Other ENT: negative: Ear Pain, Ear Discharge, Nose Pain, Nose Discharge, Nose Congestion, Mouth Pain, Mouth Swelling, Throat Pain, Throat Swelling, Other Respiratory: negative: Cough, Dry, Shortness of Breath, Hemoptysis, SOB with Excertion, Pleuritic Pain, Sputum, Wheezing Cardiovascular: negative: chest pain, palpitations, orthopnea, paroxysmal nocturnal dyspnea, edema, light headedness, other Gastrointestinal: negative: Nausea, Vomiting, Abdominal Pain, Diarrhea, Constipation, Melena, Hematochezia, Other Musculoskeletal: Foot Pain, Other (gangrenous foot Bilaterally involving toes.) - Medications/Allergies Allergies/Adverse Reactions: Allergies Allergy/AdvReac Type Severity Reaction Status Date / Time No Known Drug Allergies Allergy Verified 05/24/17 20:29 Medications: Current Medications Acetaminophen (Tylenol) 1,000 mg PO Q6H PRN PRN Reason: Headache/Fever or Mild Pain Hydrocodone Bitart/Acetaminophen ([place] 10/325) 1 tab PO Q6H PRN PRN Reason: Moderate Pain (4-6) Last Admin: 08/03/17 23:15 Dose: 1 tab Albuterol/Ipratropium (Duoneb) 3 ml NEB Q4H PRN PRN Reason: SOB &/or Wheezing Atorvastatin Calcium (Lipitor) 40 mg PO DAILY [facility] Last Admin: 08/04/17 08:39 Dose: 40 mg Baclofen (Lioresal) 20 mg PO TID [facility] Last Admin: 08/04/17 08:38 Dose: 20 mg Carvedilol (Coreg) 6.25 mg PO BID [facility] Last Admin: 08/04/17 08:42 Dose: 6.25 mg Clonidine (Catapres) 0.1 mg PO Q4H PRN PRN Reason: Systolic BP > 180 Dextrose/Water (Dextrose 50%) 25 gm SLOW IVP PRN PRN PRN Reason: Hypoglycemia Duloxetine HCl (Cymbalta) 60 mg PO DAILY [facility] Last Admin: 08/04/17 08:38 Dose: 60 mg Enoxaparin Sodium (Lovenox) 40 mg SC 0900 [facility] Last Admin: 08/04/17 08:37 Dose: 40 mg Famotidine (Pepcid) 20 mg PO BID [facility] Last Admin: 08/04/17 08:39 Dose: 20 mg Furosemide (Lasix) 40 mg PO DAILY [facility] Last Admin: 08/04/17 08:39 Dose: 40 mg Glimepiride (Amaryl) 2 mg PO BID-[facility] Last Admin: 08/04/17 08:35 Dose: 2 mg Glucagon (Glucagon) 1 mg IM PRN PRN PRN Reason: Hypoglycemia Hydralazine HCl (Apresoline) 10 mg SLOW IVP Q4H PRN PRN Reason: Systolic BP > 180 Dextrose/Water (D5w) 1,000 mls @ 0 mls/hr IV .Q0M PRN; As Directed PRN Reason: Hypoglycemia Sodium Chloride (Normal Saline 0.9%) 1,000 mls @ 75 mls/hr IV .[id number] [facility] Last Admin: 08/04/17 09:10 Dose: 1,000 mls Piperacillin Sod/Tazobactam (Sod 3.375 gm/ Sodium Chloride) 100 mls @ 200 mls/ hr IVPB Q6HR [facility] Last Admin: 08/04/17 11:41 Dose: 100 mls Levofloxacin 750 mg/ Device 150 mls @ 100 mls/hr IVPB 2100 [facility] Last Admin: 08/03/17 22:33 Dose: 150 mls Vancomycin HCl 750 mg/ Sodium (Chloride) 250 mls @ 250 mls/hr IVPB 1000,2200 [facility] Last Admin: 08/04/17 09:59 Dose: 250 mls Insulin Human Lispro (Humalog) 0 units SC .MODERATE SLIDING SC PRN PRN Reason: Moderate Correctional Scale Last Admin: 08/04/17 12:37 Dose: 4 unit Insulin Human Lispro (Humalog) 0 units SC .BEDTIME SLIDING SC PRN PRN Reason: Bedtime Correctional Scale Miscellaneous Medication (Pharmacy To Dose) 1 each IVPB PRN PRN PRN Reason: Pharmacy to dose Morphine Sulfate (Morphine) 4 mg SLOW IVP Q4H PRN PRN Reason: Moderate to Severe Pain (6-10) Last Admin: 08/04/17 09:20 Dose: 4 mg Ondansetron HCl (Zofran Odt) 4 mg PO Q6H PRN PRN Reason: Nausea/Vomiting Ondansetron HCl (Zofran) 4 mg IVP Q6H PRN PRN Reason: Nausea/Vomiting Tamsulosin HCl (Flomax) 0.4 mg PO BID-[facility] Last Admin: 08/04/17 08:34 Dose: 0.4 mg Tramadol HCl (Ultram) 50 mg PO Q4H PRN PRN Reason: Mild-Moderate Pain (1-5) Last Admin: 08/01/17 17:09 Dose: 50 mg
[2017-08-04] MEDS: HYDROcodone/Acetaminophen 10/325 mg Tablet PO PRN ×2 (17:48→23:41)
--- NOTE | 2017-08-04 21:35 | EKG ---
Test Reason : Blood Pressure : / mmHG Vent. Rate : 073 BPM Atrial Rate : 073 BPM P-R Int : 136 ms QRS Dur : 100 ms QT Int : 428 ms P-R-T Axes : 068 -21 111 degrees QTc Int : 471 ms Normal sinus rhythm Septal infarct , age undetermined Abnormal ECG Confirmed by MADYSON GE M.D. ([id number]), proposal editor HELENE VAZQUEZ ([id number]) on 08/04/2017 9:34:44 PM Referred By: Confirmed By:MADYSON GE M.D.
[2017-08-05] MEDS: Piperacillin/Tazobactam 3.375 GM in Sodium Chloride 0.9% 100 ML IVPB SCH ×4 (02:58→21:29)
[2017-08-05] MEDS: Sodium Chloride 0.9% 1,000 ML IV SCH (03:16)
[2017-08-05] MEDS: HumaLOG 300 UNITS/3 ML VIAL SC PRN ×2 (06:09→11:50)
[2017-08-05] MEDS: Glimepiride 2 MG TAB PO SCH ×2 (07:08→16:25)
[2017-08-05] MEDS: DULoxetine 60 MG CAP PO SCH (08:01)
[2017-08-05] MEDS: Tamsulosin HCl 0.4 MG CAP PO SCH ×2 (08:02→16:25)
[2017-08-05] MEDS: Carvedilol 6.25 MG TAB PO SCH ×2 (08:02→21:30)
[2017-08-05] MEDS: Famotidine 20 MG TAB PO SCH ×2 (08:02→21:30)
[2017-08-05] MEDS: Baclofen 10 MG TAB PO SCH ×3 (08:02→21:30)
[2017-08-05] MEDS: Atorvastatin Calcium 40 MG TAB PO SCH (08:05)
[2017-08-05] MEDS: Furosemide 40 MG TAB PO SCH (08:05)
[2017-08-05] MEDS: Enoxaparin Sodium 40 MG/0.4 ML SYRINGE SC SCH (08:11)
[2017-08-05] MEDS: Vancomycin HCl 750 MG in Sodium Chloride 0.9% 250 ML 250 ML IVPB SCH ×2 (10:06→22:25)
[2017-08-05] MEDS: HYDROcodone/Acetaminophen 10/325 mg Tablet PO PRN ×2 (10:11→21:35)
--- NOTE | 2017-08-05 13:56 | PDOC.PN ---
- Subjective Encounter Start Date: 08/05/17 Encounter Start Time: 11:00 Bennett is seen today, discussed with at bedside, Explained bennett Will get a Blood Culture repeated today, will Monitor for 24-48 hrs before dischagre. - Objective Resuscitation Status: Resuscitation Status DNR:Do Not Resuscitate MAR Reviewed: Yes Vital Signs & Weight: Vital Signs (12 hours) Temp Pulse Resp BP BP Pulse Ox 08/05/17 08:02 140/65 08/05/17 08:00 97.6 F 68 20 143/63 H 96 Weight Admit Weight 171 lb 4.528 oz Weight 171 lb 4.533 oz I&O: 08/04/17 08/05/17 08/06/17 06:59 06:59 06:59 Intake Total 2750 4100 240 Output Total 750 3100 450 Balance 2000 1000 -210 Result Diagrams: 08/02/17 04:39 08/02/17 04:39 Additional Labs: Accuchecks 08/05/17 08/05/17 08/04/17 11:07 05:24 19:57 POC Glucose 193 H 161 H 252 H 08/04/17 16:04 POC Glucose 220 H Radiology Reviewed by me: Yes Phys Exam - Physical Examination HEENT: PERRLA, moist MMs Neck: no nodes, no JVD Respiratory: no wheezing, no rales Cardiovascular: RRR, no significant murmur Gastrointestinal: soft, non-tender Bilateral Feet with gangreous changes dry type. Neurological: non-focal Lymphatic: no nodes Deviation from normal: As above, Face has rash likely atopic dermatitis. Dx/Plan (1) Acute metabolic encephalopathy Code(s): G93.41 - METABOLIC ENCEPHALOPATHY Status: Acute Comment: Resolved with supportive mgmt, continue mgmt outlined below, likely a multifactorial process (2) Ulcers of both lower extremities Code(s): L97.919 - NON-PRS CHRONIC ULC UNSP PRT OF R LOW LEG W UNSP SEVERITY; L97.929 - NON-PRS CHRONIC ULC UNSP PRT OF L LOW LEG W UNSP SEVERITY Status: Acute Qualifiers: Non-pressure ulcer stage: with fat layer exposed Qualified Code(s): L97.912 - Non-pressure chronic ulcer of unspecified part of right lower leg with fat layer exposed; L97.922 - Non-pressure chronic ulcer of unspecified part of left lower leg with fat layer exposed; L97.922 - Non-pressure chronic ulcer of unspecified part of left lower leg with fat layer exposed; L97.922 - Non-pressure chronic ulcer of unspecified part of left lower leg with fat layer exposed; L97.922 - Non-pressure chronic ulcer of unspecified part of left lower leg with fat layer exposed Comment: Severe ulcerations, chronic, WCT for local care, likely needs amputation but surgery states no acute need for amputation (3) COPD exacerbation Code(s): J44.1 - CHRONIC OBSTRUCTIVE PULMONARY DISEASE W (ACUTE) EXACERBATION Status: Acute Comment: Duo nebs, abx, steroids (4) Decubitus ulcer, stage 4 with infection Code(s): L89.94 - PRESSURE ULCER OF UNSPECIFIED SITE, STAGE 4; L08.9 - LOCAL INFECTION OF THE SKIN AND SUBCUTANEOUS TISSUE, UNSP Status: Acute Comment: present on admission, over sacrum, cultures with gram positive cocci and some gram neg rods, on Rocephin and Vanc (5) CAD (coronary artery disease) Code(s): I25.10 - ATHSCL HEART DISEASE OF [place] CORONARY ARTERY W/O ANG PCTRS Status: Chronic (6) Diabetes type 2, uncontrolled Code(s): E11.65 - TYPE 2 DIABETES MELLITUS WITH HYPERGLYCEMIA Status: Chronic Comment: stable, continue SSI. (7) Gangrenous toe Code(s): I96 - GANGRENE, NOT ELSEWHERE CLASSIFIED Status: Chronic Comment: dry gangrene, and recurrent proximal infections, continue Vancomycin, Levaquin and Zosyn . (8) PVD (peripheral vascular disease) Code(s): I73.9 - PERIPHERAL VASCULAR DISEASE, UNSPECIFIED Status: Chronic (9) Physical deconditioning Code(s): R53.81 - OTHER MALAISE Status: Chronic Comment: Severe deconditioning, PT/OT for mobilization, SNF options (10) Wound, open, abdominal wall, anterior Code(s): S31.109A - UNSP OPN WND ABD WALL, UNSP Q W/O PENET PERIT CAV, INIT Status: Chronic Comment: Wound vac application, local care (11) Bacteremia Code(s): R78.81 - BACTEREMIA Status: Acute Comment: Repeat Blood Cultures today, monitor for 24 hrs before discharge. - Plan cont current plan of care, plan discussed w/ family, PT/OT, social insurance analyst, incentive spirometry, out of bed/ambulate, DVT proph w/lovenox * . - Discharge Day Encounter end time: 11:30 Review of Systems - Review of Systems Constitutional: negative: fever, chills, sweats, weakness, malaise, other Eyes: negative: Pain, Vision Change, Conjunctivae Inflammation, Eyelid Inflammation, Redness, Other ENT: negative: Ear Pain, Ear Discharge, Nose Pain, Nose Discharge, Nose Congestion, Mouth Pain, Mouth Swelling, Throat Pain, Throat Swelling, Other Respiratory: negative: Cough, Dry, Shortness of Breath, Hemoptysis, SOB with Excertion, Pleuritic Pain, Sputum, Wheezing Cardiovascular: negative: chest pain, palpitations, orthopnea, paroxysmal nocturnal dyspnea, edema, light headedness, other Gastrointestinal: negative: Nausea, Vomiting, Abdominal Pain, Diarrhea, Constipation, Melena, Hematochezia, Other Skin: Rash Neurological: negative: Weakness, Numbness, Incoordination, Change in Speech, Confusion, Seizures, Other - Medications/Allergies Allergies/Adverse Reactions: Allergies Allergy/AdvReac Type Severity Reaction Status Date / Time No Known Drug Allergies Allergy Verified 05/24/17 20:29 Medications: Current Medications Acetaminophen (Tylenol) 1,000 mg PO Q6H PRN PRN Reason: Headache/Fever or Mild Pain Hydrocodone Bitart/Acetaminophen ([place] 10/325) 1 tab PO Q6H PRN PRN Reason: Moderate Pain (4-6) Last Admin: 08/05/17 10:11 Dose: 1 tab Albuterol/Ipratropium (Duoneb) 3 ml NEB Q4H PRN PRN Reason: SOB &/or Wheezing Atorvastatin Calcium (Lipitor) 40 mg PO DAILY [facility] Last Admin: 08/05/17 08:05 Dose: 40 mg Baclofen (Lioresal) 20 mg PO TID [facility] Last Admin: 08/05/17 08:02 Dose: 20 mg Carvedilol (Coreg) 6.25 mg PO BID [facility] Last Admin: 08/05/17 08:02 Dose: 6.25 mg Clonidine (Catapres) 0.1 mg PO Q4H PRN PRN Reason: Systolic BP > 180 Dextrose/Water (Dextrose 50%) 25 gm SLOW IVP PRN PRN PRN Reason: Hypoglycemia Duloxetine HCl (Cymbalta) 60 mg PO DAILY [facility] Last Admin: 08/05/17 08:01 Dose: 60 mg Enoxaparin Sodium (Lovenox) 40 mg SC 0900 [facility] Last Admin: 08/05/17 08:11 Dose: 40 mg Famotidine (Pepcid) 20 mg PO BID [facility] Last Admin: 08/05/17 08:02 Dose: 20 mg Furosemide (Lasix) 40 mg PO DAILY [facility] Last Admin: 08/05/17 08:05 Dose: 40 mg Glimepiride (Amaryl) 2 mg PO BID[facility] Last Admin: 08/05/17 07:08 Dose: 2 mg Glucagon (Glucagon) 1 mg IM PRN PRN PRN Reason: Hypoglycemia Hydralazine HCl (Apresoline) 10 mg SLOW IVP Q4H PRN PRN Reason: Systolic BP > 180 Dextrose/Water (D5w) 1,000 mls @ 0 mls/hr IV .Q0M PRN; As Directed PRN Reason: Hypoglycemia Sodium Chloride (Normal Saline 0.9%) 1,000 mls @ 75 mls/hr IV .[id number] [facility] Last Admin: 08/05/17 03:16 Dose: Not Given Levofloxacin 750 mg/ Device 150 mls @ 100 mls/hr IVPB 2100 [facility] Last Admin: 08/04/17 22:00 Dose: 150 mls Vancomycin HCl 750 mg/ Sodium (Chloride) 250 mls @ 250 mls/hr IVPB 1000,2200 [facility] Last Admin: 08/05/17 10:06 Dose: 250 mls Piperacillin Sod/Tazobactam (Sod 3.375 gm/ Sodium Chloride) 100 mls @ 200 mls/ hr IVPB 0300,0900,1500,2100 [facility] Last Admin: 08/05/17 08:05 Dose: 100 mls Insulin Human Lispro (Humalog) 0 units SC .MODERATE SLIDING SC PRN PRN Reason: Moderate Correctional Scale Last Admin: 08/05/17 11:50 Dose: 2 unit Insulin Human Lispro (Humalog) 0 units SC .BEDTIME SLIDING SC PRN PRN Reason: Bedtime Correctional Scale Last Admin: 08/04/17 22:01 Dose: 3 unit Miscellaneous Medication (Pharmacy To Dose) 1 each IVPB PRN PRN PRN Reason: Pharmacy to dose Morphine Sulfate (Morphine) 4 mg SLOW IVP Q4H PRN PRN Reason: Moderate to Severe Pain (6-10) Last Admin: 08/04/17 09:20 Dose: 4 mg Ondansetron HCl (Zofran Odt) 4 mg PO Q6H PRN PRN Reason: Nausea/Vomiting Ondansetron HCl (Zofran) 4 mg IVP Q6H PRN PRN Reason: Nausea/Vomiting Tamsulosin HCl (Flomax) 0.4 mg PO BID-[facility] Last Admin: 08/05/17 08:02 Dose: 0.4 mg Tramadol HCl (Ultram) 50 mg PO Q4H PRN PRN Reason: Mild-Moderate Pain (1-5) Last Admin: 08/01/17 17:09 Dose: 50 mg
--- NOTE | 2017-08-05 14:12 | PRG ---
DATE OF SERVICE: 08/05/2017 SUBJECTIVE: He denies difficulty breathing. OBJECTIVE: VITAL SIGNS: Blood pressure 140/60, temperature 97, pulse 60, respiration 20. HEST: Reveals decreased breath sounds without any wheezing. CARDIAC: Normal S1, S2. No gallops. ABDOMEN: Soft. No masses. EXTREMITIES: Revealed multiple gangrenous area. IMPRESSION: Lower extremity gangrenous feet, multiple; peripheral vascular disease; decubitus; sever e deconditioning; congestive heart failure; chronic obstructive pulmonary disease. PLAN: Await input from General Surgery, antibiotics per Infectious Disease, neb treatment and suppor tive care. We will follow.
[2017-08-05] MEDS: Nystatin Powder 15 GM BOT TOP SCH ×2 (16:28→21:30)
[2017-08-05] MEDS ORDERED: Nystatin/Triamcinolone Cream 15 GM TUBE TOP SCH (21:00)
[2017-08-05 21:16] LABS: Vancomycin, Trough 18.8 ug/mL
[2017-08-06] MEDS: Piperacillin/Tazobactam 3.375 GM in Sodium Chloride 0.9% 100 ML IVPB SCH ×3 (03:14→14:56)
[2017-08-06] MEDS: HumaLOG 300 UNITS/3 ML VIAL SC PRN ×2 (06:14→12:21)
[2017-08-06 08:26] VITALS: TEMP 97.9
[2017-08-06] MEDS: Nystatin Powder 15 GM BOT TOP SCH (08:46)
[2017-08-06] MEDS: DULoxetine 60 MG CAP PO SCH (08:46)
[2017-08-06] MEDS: Furosemide 40 MG TAB PO SCH (08:46)
[2017-08-06] MEDS: Glimepiride 2 MG TAB PO SCH (08:46)
[2017-08-06] MEDS: Famotidine 20 MG TAB PO SCH (08:47)
[2017-08-06] MEDS: Tamsulosin HCl 0.4 MG CAP PO SCH ×2 (08:47→14:56)
[2017-08-06] MEDS: Baclofen 10 MG TAB PO SCH ×2 (08:47→14:56)
[2017-08-06] MEDS: Atorvastatin Calcium 40 MG TAB PO SCH (08:47)
[2017-08-06] MEDS: Carvedilol 6.25 MG TAB PO SCH (08:47)
[2017-08-06] MEDS: Enoxaparin Sodium 40 MG/0.4 ML SYRINGE SC SCH (08:49)
[2017-08-06] MEDS: Vancomycin HCl 750 MG in Sodium Chloride 0.9% 250 ML 250 ML IVPB SCH (10:47)
--- NOTE | 2017-08-06 10:47 | PRG ---
DATE OF SERVICE: 08/06/2017 Mr. Bennett has no new complaints. He is resting comfortably in his bed. He is examined with the wo d care team and all areas of his multiple wounds were examined. PHYSICAL EXAMINATION: VITAL SIGNS: Afebrile. Vital signs within normal limits. LABORATORY: He has no recent laboratory studies other than his Accu-Chek blood sugars. ABDOMEN: His abdominal wound is examined. The base appears to be lined with clean, healthy granulat ion tissue. The edges of the skin curled down towards the granulation tissue and the granulation tis ariel was probably 3 or 4 cm wide by 7 or 8 cm in length. This is a wound that has been healing since his surgery in February and is therefore persistently nonhealing. There is no evidence of necrosis o r infection and no call for debridement. BACK: I examined his sacral wound. While it is much smaller than when I initially performed his meli ridement in April, the undermining has resolved. The appearance seen on the back is similar to the appearance of the wound on his abdomen in that it is lined with healthy granulation tissue, but the skin edges curl down to the granulation tissue. EXTREMITIES: I examined the wounds on his right and left legs and his left heel. I attempted to meli ride some of the liquified appearing muscle on the wound on the left. The muscle does not look healt hier or viable, but it does bleed when the wound is trimmed and there is some discomfort with this. I performed minimal debridement. On the right, I excised the large eschar. The gangrenous change of his toes is without change. ASSESSMENT: Patient with multiple areas of poor to nonhealing wounds and gangrenous changes. As men tioned earlier, I think he is actually going to require bilateral above knee amputations. Until he d ecides to go through with this, then I would continue the wound care of the bilateral leg wounds and padding of the heel. In regards to his abdomen and sacral decubitus wounds, I would continue the same wound care. The wou nds are clean and lined with clean granulation tissue. I am not certain if the abdominal wound will ever heal. At this point, it would potentially require further surgery to try and raise flaps and ho pe that this could heal with a drain in place with something of that nature. I think that he has poo r tissue healing and poor tissue quality and his body is somewhat incapable of healing these wounds i n a normal fashion. I am not certain that needs to be in the hospital any longer for care of these a s there is nothing acutely wrong with any of these wounds.
[2017-08-06] MEDS: HYDROcodone/Acetaminophen 10/325 mg Tablet PO PRN (14:56)
[2017-08-06 15:11] VITALS: BP 152/66
--- NOTE | 2017-08-13 14:31 | DIS ---
DATE OF ADMISSION: 07/31/2017 DATE OF DISCHARGE: 08/06/2017 ADMITTING DIAGNOSIS: Acute encephalopathy. DISCHARGE DIAGNOSIS: Acute encephalopathy from gangrenous infection of the toes. SECONDARY DIAGNOSES: 1. Severe peripheral vascular disease. 2. Gangrene of the bilateral feet. 3. Acute urinary tract infection. 4. Abdominal wound with wound VAC. 5. Type 2 diabetes mellitus. 6. Severe deconditioning. 7. Diastolic heart failure. 8. Failure to thrive. CONSULTANTS: Consultants involved in the care were Dr. Fredy Odell and Dr. Solitario Mcallister. HISTORY OF PRESENT ILLNESS/HOSPITAL COURSE: Briefly, this is a 72-year-old white male admitted with a questionable altered mental status likely from multiple causes including the UTI and a gangrenous i nfection of the toes. The patient has extensive vascular disease and has been hospitalized recently for the same type for colostomy procedure. The patient has gangrenous toes on his left foot and the large toe on his right foot. The patient was started on IV antibiotics for worsening of the gangrene and for this reason the patient was also admitted to ICU due to multiple comorbidities. Due to mult iple comorbidities, the patient was also suggested for palliative care consultation by Critical Care. The patient also had a recent abdominal surgery for ischemic bowel and was on wound VAC for the iris e. During this hospitalization, the patient was seen by Dr. Solitario Mcallister for his gangrenous toes. He suggested the patient to undergo surgical debridement or above knee amputation. Family discusse d with each other and decided against going for any surgical amputation at this time. However, there was no significant infection at this time according to the General Surgery and the patient was close ly monitored with regular wound care and IV antibiotics. The patient also has a sacral wound and abd ominal wound which were also closely monitored with wound care. The patient was consulted with the hysical therapy and they suggested home health. The family wanted to take the patient back home. Th e patient was stable, he was able to walk. He was able to stand and was able to walk a few steps. I t was suggested the patient should be on oral antibiotic for another 2 weeks along with some Nystatin powder for some intertriginous infection of the Jenae. The patient will be discharged home in stable condition. PHYSICAL EXAMINATION: On date of discharge: VITAL SIGNS: Blood pressures are 150/66, heart rate is 85, respiratory rate 16, saturation 95%. GENERAL: The patient is moderately built, moderately nourished. He does not appear in acute distres s. CARDIOVASCULAR: S1, S2 normal. No murmurs, rubs or gallops. LUNGS: Bilateral air entry was equal. No wheeze, no crackles. ABDOMEN: Soft, nontender, no guarding, no rebound tenderness. Bowel sounds normal. Abdominal wound s are stable along with decubitus wounds. HOME MEDICATIONS: On the day of discharge, the patient was discharged on Ciprofloxacin 500 mg p.o. b.i.d. for 2 weeks and continued on his home medications. Home medications; the patient was on Lipit or 40 mg p.o. daily, vitamin B12 1000 mcg daily, duloxetine 60 mg daily, Lasix 40 mg daily, gabapenti n 300 mg p.o. b.i.d., Levemir 36 units subcutaneously b.i.d., Protonix 40 mg daily, tamsulosin 0.4 mg daily, tramadol 50 mg p.o. daily, carvedilol 6.25 mg p.o. b.i.d. DISCHARGE INSTRUCTIONS: Continue activity as tolerated. Advised to follow up with General Surgery i n 2-3 weeks. If there is any worsening wounds advised to return back to the ER. Advised to continue with a cardiac and diabetic diet. Advised to follow up with the primary care physician in 1-2 weeks. DICTATING PHYSICIAN: Dr. Jose Manuel Branch. I spent 35 minutes with this patient on the day of discharge.
--- NOTE | 2017-08-20 06:19 | PQF ---
YANG GUARDADO, GABRIELA Potter MD [id number] ANT ANT [id number] CLINICAL DOCUMENTATION CLARIFICATION FORM: POST DISCHARGE DATE: 08/20/2017 ATTN: Dr. Mcallister Please exercise your independent, professional judgment in responding to the clarification form. Clinical indicators are provided on the bottom of this form for your review Please check appropriate box(s): [x ] Excisional Debridement: [ x ] Excised [ x ] Cut away [ ] Other: Depth / layer: (deepest layer of debridement): [ ] Skin[ ] SubQ Tissue [ ] Fascia [ x] Muscle [ ] Tendon [ ] Bone Appearance of wound: (e.g., down to fresh bleeding tissue, etc.)__ poor quality tissue. debrided non-viable material Margins: (please specify): / __5___ x _3____ x __2___ Instruments used: [ ] Scissors [ ] Scalpel [ ] Curette [ ] Soft tissue clipper [ ] Other: [ ] Non-excisional Debridement: (Removal by flushing, brushing, chemical, or washing) Depth / layer: (deepest layer of debridement): [ ] Skin[ ] Subcutaneous [ ] Fascia [ ] Muscle [ ] Tendon [ ] Bone [ ] Other procedure diagnosis (please specify) [ ] Unable to determine For continuity of documentation, please document condition throughout progress notes and discharge summary. Thank You. CLINICAL INDICATORS - SIGNS / SYMPTOMS / LABS Per 08/06 progress notes: I attempted to debride some of the liquified appearing muscle on the wound on the left. The muscle does not look healthier or viable but it does bleed when the wound is trimmed and there is some discomfort with this. I performed minimal debridement. RISK FACTORS Per H&P: Patient states he is essentially bedbound needing assistance with a board slide to a wheelchair but needs maximal assistance for transfers. Severe peripheral vascular disease with gangrene of bilateral feet. TREATMENTS: Debridement of left lower leg wound on 08/06/17. (This form is maintained as a part of the permanent medical record) 2014 [employer] All Rights Reserved Crystal [email or web address] [phone] MTDD
== END 2017-08-06 15:52 | disposition home health service (06) | DRG 981 ==
LOC: ERS 09:33 → EDUNIT# 11:43 → ERHOLD 11:43 → IMCU/EMU 19:23 → T4-B 08-01 19:20
PROVIDERS: ADMIT Family Medicine; ATTEND Family Medicine
PROC: 0KBT0ZZ Excision of Left Lower Leg Muscle, Open Approach (ICD-10-PCS; principal; 2017-08-06)
PROC: 0HBKXZZ Excision of Right Lower Leg Skin, External Approach (ICD-10-PCS; 2017-08-06)
DX: E11.52 Type 2 diabetes mellitus with diabetic peripheral angiopathy with gangrene (principal); G93.41 Metabolic encephalopathy; I96 Gangrene, not elsewhere classified; I50.32 Chronic diastolic (congestive) heart failure; L97.912 Non-pressure chronic ulcer of unspecified part of right lower leg with fat layer exposed; N39.0 Urinary tract infection, site not specified; L97.922 Non-pressure chronic ulcer of unspecified part of left lower leg with fat layer exposed; Z86.74 Personal history of sudden cardiac arrest; J44.9 Chronic obstructive pulmonary disease, unspecified; Z51.5 Encounter for palliative care; Z66 Do not resuscitate; E78.5 Hyperlipidemia, unspecified; I25.10 Atherosclerotic heart disease of native coronary artery without angina pectoris; F32.9 Major depressive disorder, single episode, unspecified; R62.7 Adult failure to thrive; Z87.891 Personal history of nicotine dependence; Z79.4 Long term (current) use of insulin; Z79.899 Other long term (current) drug therapy; Z93.3 Colostomy status
CPT/HCPCS: 36415; 36416; 51702; 70450; 71045; 74177; 80048; 80053; 80202; 81003; 81015; 82330; 82550; 82553; 82803; 83605; 84484; 85007; 85025; 85027; 87040; 87076; 87086; 90471; 90670; 93005; 94760; 96365; 96366; 96375; A4216; G0009; G8978-GP-CM; G8979-GP-CL; G8987-GO-CM; G8988-GO-CK; J1650; J1956; J2185; J2270; J2310; J2543; J3370; J7050

== ENCOUNTER 2017-08-23 08:24 | Day surgery (SDC) | payer MEDICARE, OTHER ==
[2017-08-23] MEDS ORDERED: MEROPENEM 1 GM/50 ML 1 GM in Premix Bag 1 BAG IVPB SCH (09:15)
[2017-08-23] MEDS ORDERED: Sodium Chloride 0.9% 20 ML ONE (10:07)
--- NOTE | 2017-08-23 11:30 | SPC ---
SONOGRAPHICALLY GUIDED RIGHT UPPER EXTREMITY PICC PLACEMENT: History: Osteomyelitis. FINDINGS: After explaining the procedure and answering all questions the right upper extremity was prepped and draped in the usual sterile fashion. Sterile technique, buffered local anesthesia, sonographic guidan ce and a 22 gauge needle were used to carefully access the right brachial vein. Standard technique wa s then used to place the tip of a 5 [place] single lumen PICC so that the tip lies at the level of the right atrium. Catheter was flushed and secured externally. The patient tolerated the procedure well and was dismissed in good condition. Fluoro time equals 0 seconds. IMPRESSION: Technically successful right upper extremity PICC placement. Catheter is now ready for use. POS: [facility]
[2017-08-23 11:43] LABS: #Eosinphils 0.2 thou/uL (0.0-0.7); #Lymphocytes 2.5 thou/uL (1.20-3.40); #Monocytes 0.7 thou/uL (0.11-0.59); #Neutrophils 9.1 thou/uL (1.40-6.50); %Basophils 0.2 % (0.0-1.0); %Eosinophils 1.4 % (0.0-10.0); %Lymphocytes 19.9 % (21.0-51.0); %Monocytes 5.4 % (0.0-10.0); %Neutrophils 73.1 % (42.0-75.0); Hemoglobin 10.6 g/dL (14.0-18.0); Mean Corpuscular HGB CONC 32.3 g/dL (32.0-36.0); Mean Corpuscular Hemoglobin 27.7 pg (27.0-31.0); Mean Corpuscular Volume 85.7 fl (80.0-94.0); Mean Platelet Volume 7.3 fL (7.4-10.4); Platelet Count 395 thou/uL (130-400); RBC Distribution Width 16.7 % (11.5-14.5); Red Blood Cell (RBC) Count 3.83 mill/uL (4.70-6.10); White Blood Cell (WBC) Count 12.4 thou/uL (4.8-10.8)
[2017-08-23 12:04] LABS: ALT (SGPT) 17 U/L (8-55); AST (SGOT) 13 U/L (5-34); Albumin 3.3 g/dL (3.4-4.8); Alkaline Phosphatase 88 U/L (40-150); Anion Gap 13 mmol/L (10-20); BUN (Urea Nitrogen) 24 mg/dL (8.4-25.7); Bilirubin, Total 0.3 mg/dL (0.2-1.2); CRP (Inflammatory) 10.07 mg/dL (= or < 0.5); Calc. Creatinine Clearance 0 mL/min (70-130); Calcium 9.3 mg/dL (7.8-10.44); Carbon Dioxide 21 mmol/L (23-31); Chloride 103 mmol/L (98-107); Estimated GFR-MDRD 80; Globulin 4.5 g/dL (2.4-3.5); Glucose 278 mg/dL (83-110); Potassium 4.3 mmol/L (3.5-5.1); Protein, Total 7.8 g/dL (5.8-8.1); Sodium 133 mmol/L (136-145)
== END 2017-08-23 13:47 | disposition home or self-care (01) ==
LOC: SPEC 08:24 → EDUNIT# 09:00 → ONC/OP 13:47
PROVIDERS: ATTEND Internal Medicine Infectious Disease
PROC: 02H633Z Insertion of Infusion Device into Right Atrium, Percutaneous Approach (ICD-10-PCS; principal; 2017-08-23)
DX: M86.9 Osteomyelitis, unspecified (principal)
CPT/HCPCS: 36569; 80053; 85025; 86140; 96365; 99212; A4216; C1751; G0463; J1642; J2185

== ENCOUNTER 2017-09-01 09:39 | Inpatient (IN) | payer MEDICARE, OTHER ==
[~2017-09-01 09:39] MED LIST: Heparin 1,000 UNITS/ML VIAL ONE
[2017-09-01 10:16] LABS: #Eosinphils 0.1 thou/uL (0.0-0.7); #Lymphocytes 3.1 thou/uL (1.20-3.40); #Monocytes 0.9 thou/uL (0.11-0.59); #Neutrophils 9.5 thou/uL (1.40-6.50); %Basophils 0.1 % (0.0-1.0); %Lymphocytes 22.6 % (21.0-51.0); %Monocytes 6.8 % (0.0-10.0); %Neutrophils 69.6 % (42.0-75.0); Hemoglobin 10.3 g/dL (14.0-18.0); Mean Corpuscular HGB CONC 32.7 g/dL (32.0-36.0); Mean Corpuscular Hemoglobin 28.3 pg (27.0-31.0); Mean Corpuscular Volume 86.7 fl (80.0-94.0); Mean Platelet Volume 7.6 fL (7.4-10.4); Platelet Count 348 thou/uL (130-400); RBC Distribution Width 17.2 % (11.5-14.5); Red Blood Cell (RBC) Count 3.63 mill/uL (4.70-6.10); White Blood Cell (WBC) Count 13.6 thou/uL (4.8-10.8)
[2017-09-01 10:38] LABS: ALT (SGPT) 13 U/L (8-55); AST (SGOT) 13 U/L (5-34); Albumin 3.1 g/dL (3.4-4.8); Alkaline Phosphatase 80 U/L (40-150); Anion Gap 14 mmol/L (10-20); BUN (Urea Nitrogen) 19 mg/dL (8.4-25.7); Bilirubin, Total 0.3 mg/dL (0.2-1.2); Calc. Creatinine Clearance 0 mL/min (70-130); Calcium 8.9 mg/dL (7.8-10.44); Carbon Dioxide 24 mmol/L (23-31); Chloride 102 mmol/L (98-107); Estimated GFR-MDRD Greater than 90; Globulin 4.4 g/dL (2.4-3.5); Glucose 255 mg/dL (83-110); Potassium 4.1 mmol/L (3.5-5.1); Protein, Total 7.5 g/dL (5.8-8.1); Sodium 136 mmol/L (136-145)
[2017-09-01] MEDS ORDERED: Morphine 4 MG/ML VIAL ONE (11:17)
--- NOTE | 2017-09-01 13:31 | RAD ---
RIGHT FOOT 3 VIEWS: Date: 09/01/17 HISTORY: Cellulitis. FINDINGS: There is an enthesophyte from the plantar calcaneus measuring approximately 8.0 mm. Tarsals otherwise appear unremarkable. The metatarsals and phalanges also appear unremarkable. No fracture. No focal l ytic or destructive process seen. IMPRESSION: No plain film evidence of osteomyelitis identified. POS: [facility]
[2017-09-01] MEDS ORDERED: Senokot 8.6 MG TAB PO PRN (14:30)
[2017-09-01] MEDS ORDERED: Ondansetron ODT 4 MG TAB PO PRN (14:30)
[2017-09-01] MEDS ORDERED: Dextrose 50% Abboject 50 ML SYRINGE SLOW IVP PRN (14:30)
[2017-09-01] MEDS ORDERED: Dextrose 5% in Water 1,000 ML IV PRN (14:30)
[2017-09-01] MEDS: HYDROcodone/Acetaminophen 7.5/325 mg Tablet PO PRN ×3 (14:48→22:37)
[2017-09-01] MEDS: Sodium Chloride 0.9% 1,000 ML IV SCH ×2 (14:48→22:39)
[2017-09-01 14:54] VITALS: BMI 23.1
[2017-09-01] MEDS: Acetaminophen 325 MG TAB PO PRN (16:20)
--- NOTE | 2017-09-01 16:43 | HP ---
DATE OF ADMISSION: 09/01/2017 CHIEF COMPLAINT: Ran out of antibiotics since a week. HISTORY OF PRESENT ILLNESS: This is a 72-year-old white male with a known past medical history of ga ngrenous toes and has been recently in the hospital and was discharged a few weeks ago and few weeks ago, the patient had a wound culture which was positive for Pseudomonas and the patient was prescribe d an oral antibiotic by Dr. Mcdonough and he was being closely monitored and was advised to continue on a ntibiotics. Patient ran out of these antibiotics a week ago and for the past 1 week, he has not been able to buy any antibiotics, so he started developing worsening pain in his lower extremities and he decided to come to the ER for further evaluation. When the patient arrived in the ER, he was alert and oriented, did not appear to be in any acute distress. Denies having any chest pain, abdominal pa in, no nausea, no vomiting, no diarrhea, no constipation. He was noted to have elevated lactic acid of 3.2 and he was given a dose of vancomycin in the ER. Patient mentioned that he was initially pres cribed an antibiotic which was sensitive to the bacteria, so the patient was started on meropenem at this time. The patient was seen by Dr. Mcallister during the last admission for General Surgery evaluat ion and he recommended clearly above knee amputation of both the legs, but family refused the recomme ndation and would like to continue on the medical management. The patient has failed medical managem ent again this time and his prognosis of healing again is very poor at this time. PAST MEDICAL HISTORY: 1. Recurrent metabolic encephalopathy. 2. History of hypoxic respiratory failure. 3. Chronic diastolic heart failure. 4. Diabetes mellitus type 2. 5. Multiple decubitus ulcerations of the bilateral lower extremities, gangrene of the wall of the to es of the left foot and right great toe. 6. Severe physical deconditioning, severe peripheral vascular disease with necrosis, status post car diac arrest, status post ischemic bowel resection and ostomy placement. PAST SURGICAL HISTORY: 1. Status post hip fusion. 2. 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 3. Status post tonsillectomy. 4. Status post bypass grafting to the left lower extremity. HOME MEDICATIONS: 1. Atorvastatin 40 mg p.o. daily. 2. Baclofen 20 mg p.o. t.i.d. 3. Coreg 6.25 mg p.o. b.i.d. 4. Cymbalta 60 mg p.o. in the morning. 5. Lasix 40 mg p.o. daily. 6. Glimepiride 2 mg p.o. b.i.d. 7. Ipratropium 3 mL nebulizer q.4 hours. 8. Metformin 1000 mg p.o. b.i.d. 9. Pioglitazone 30 mg p.o. daily. 10. Tamsulosin 0.4 mg p.o. daily. ALLERGIES: No known drug allergies. REVIEW OF SYSTEMS: All 12 systems are reviewed with the patient thoroughly and found to be negative at this time. Systems reviewed are HEENT, CVS, FOOD PRODUCTION WORKER, respiratory, GI, , musculoskeletal, skin, inte gumentary, and psychiatric. PHYSICAL EXAMINATION: VITAL SIGNS: Blood pressure is 153/70, heart rate is 95, respiratory rate 18, saturation 95% on room air. GENERAL: The patient is moderately built, moderately nourished, does not appear to be in acute distr ess. CARDIOVASCULAR: S1, S2 normal. No murmurs, rubs or gallops. LUNGS: Bilateral air entry was equal. No wheezing, no crackles. ABDOMEN: Soft, nontender, no guarding, no rebound tenderness. Bowel sounds normal. MUSCULOSKELETAL: Patient has bilateral lower extremity toe gangrene with cellulitis extending to the dorsum of the foot. No calf tenderness, no joint tenderness, no joint swelling. SKIN: No jaundice, no erythema, no rash, no pallor. NEUROLOGIC: Cranial nerve examination II-XII intact. No focal deficits were noted at this time. LABORATORY DATA: WBC 13.6, hemoglobin is 10.3, hematocrit 31.5, platelets 348. Sodium 136, potassiu m 4.1, chloride is 102, bicarbonate is 24, BUN 19, creatinine 0.81, blood sugar is 255. Lactic acid is 3.2. IMAGING: X-ray of the foot was done which showed no evidence of any acute osteomyelitis. ASSESSMENT AND PLAN: 1. Acute bilateral foot gangrene with cellulitis. 2. Severe peripheral vascular disease. 3. Type 2 diabetes mellitus. 4. Diastolic heart failure. PLAN: 1. Plan is to closely monitor this patient. She has evidence of sepsis with elevated lactic acid. We will start the patient on IV fluids at this time for improved hydration and we will hold off on th e Lasix. We will start the patient on meropenem 1 gram IV q.8 hours as the patient had a positive wo und culture for Pseudomonas during the last admission. Most likely, this would be a Pseudomonas infe ction as the patient was off of antibiotics for one week. The patient is requesting for ID consultat ion. I would consult Dr. Mcdonough. 2. Patient is on Lasix. We will hold off on this at this time. Patient has history of congestive h eart failure, diastolic dysfunction. 3. Patient has history of type 2 diabetes mellitus, mildly with elevated blood sugars at this time. I will restart the patient's home medications. Hold off on the metformin at this time and start the patient on sliding scale insulin and we will put Levemir 25 units in the evening. 4. History of severe deconditioning. We will closely monitor as the patient had a cardiac arrest du ring the last admission. We will closely monitor for any worsening respiratory status at this time. 5. The patient has abdominal wound with colostomy bag. We will closely monitor this. Patient has n ormal bowel movements. 6. I will consult Wound Care for further wound management. 7. The patient was initially recommended for above knee amputation. I would take up this discussion again tomorrow after discussing with Infectious Disease. 8. DVT prophylaxis is Lovenox. I spent 75 minutes with this patient.
[2017-09-01] MEDS: Carvedilol 6.25 MG TAB PO SCH (20:24)
[2017-09-01] MEDS: Baclofen 10 MG TAB PO SCH (20:24)
[2017-09-01] MEDS: Docusate 100 MG CAP PO SCH (20:25)
[2017-09-01] MEDS: Famotidine 20 MG TAB PO SCH (20:25)
[2017-09-01] MEDS: Glimepiride 2 MG TAB PO SCH (20:25)
[2017-09-01] MEDS: MEROPENEM 1 GM/50 ML 1 GM in Premix Bag 1 BAG IVPB SCH (21:30)
[2017-09-01] MEDS: traMADol HCl 50 MG TAB PO PRN (21:31)
[2017-09-01] MEDS ORDERED: Meropenem 1 GM in Sodium Chloride 0.9% 100 ML IVPB SCH (22:00)
[2017-09-01 22:07] LABS: Lactic Acid 2.2 mmol/L (0.5-2.2)
[2017-09-02 00:03] LABS: Lactic Acid 1.5 mmol/L (0.5-2.2)
[2017-09-02] MEDS: Acetaminophen 325 MG TAB PO PRN ×2 (00:07→05:03)
[2017-09-02] MEDS: HYDROcodone/Acetaminophen 7.5/325 mg Tablet PO PRN ×4 (05:00→18:01)
[2017-09-02] MEDS: MEROPENEM 1 GM/50 ML 1 GM in Premix Bag 1 BAG IVPB SCH ×3 (05:00→21:41)
[2017-09-02 05:36] LABS: #Eosinphils 0.1 thou/uL (0.0-0.7); #Lymphocytes 2.7 thou/uL (1.20-3.40); #Monocytes 0.8 thou/uL (0.11-0.59); #Neutrophils 6.8 thou/uL (1.40-6.50); %Basophils 0.2 % (0.0-1.0); %Eosinophils 1.1 % (0.0-10.0); %Lymphocytes 25.7 % (21.0-51.0); %Monocytes 7.4 % (0.0-10.0); %Neutrophils 65.7 % (42.0-75.0); Hemoglobin 10.1 g/dL (14.0-18.0); Mean Corpuscular HGB CONC 32.2 g/dL (32.0-36.0); Mean Corpuscular Hemoglobin 27.7 pg (27.0-31.0); Mean Platelet Volume 8.3 fL (7.4-10.4); Platelet Count 307 thou/uL (130-400); RBC Distribution Width 17.1 % (11.5-14.5); Red Blood Cell (RBC) Count 3.65 mill/uL (4.70-6.10); White Blood Cell (WBC) Count 10.4 thou/uL (4.8-10.8)
[2017-09-02 05:49] LABS: Anion Gap 14 mmol/L (10-20); BUN (Urea Nitrogen) 13 mg/dL (8.4-25.7); Calc. Creatinine Clearance 89 mL/min (70-130); Calcium 8.6 mg/dL (7.8-10.44); Carbon Dioxide 21 mmol/L (23-31); Chloride 106 mmol/L (98-107); Estimated GFR-MDRD Greater than 90; Glucose 110 mg/dL (83-110); Potassium 3.7 mmol/L (3.5-5.1); Sodium 137 mmol/L (136-145)
[2017-09-02] MEDS: Pioglitazone HCl 15 MG TAB PO SCH (09:11)
[2017-09-02] MEDS: Famotidine 20 MG TAB PO SCH ×2 (09:12→21:41)
[2017-09-02] MEDS: Baclofen 10 MG TAB PO SCH ×3 (09:12→21:40)
[2017-09-02] MEDS: DULoxetine 60 MG CAP PO SCH (09:12)
[2017-09-02] MEDS: Tamsulosin HCl 0.4 MG CAP PO SCH (09:12)
[2017-09-02] MEDS: Docusate 100 MG CAP PO SCH ×2 (09:13→21:41)
[2017-09-02] MEDS: Carvedilol 6.25 MG TAB PO SCH ×2 (09:13→21:41)
[2017-09-02] MEDS: Atorvastatin Calcium 40 MG TAB PO SCH (09:13)
[2017-09-02] MEDS: Glimepiride 2 MG TAB PO SCH ×2 (09:13→21:41)
[2017-09-02] MEDS: HumaLOG 300 UNITS/3 ML VIAL SC PRN ×2 (12:40→17:36)
[2017-09-02] MEDS: Fluconazole 100 MG TAB PO SCH (13:27)
--- NOTE | 2017-09-02 19:52 | CON ---
DATE OF SERVICE: 09/02/2017 REASON FOR CONSULTATION: Back pain and lower extremity pain. HISTORY OF PRESENT ILLNESS: A 72-year-old with history of peripheral vascular disease, type 2 diabetes, hypertension, COPD, and coronary disease with recent episode of pneumonia, cardiac arrest and multiple complications associated with organ ischemia including ischemic bowel, DIC and lower extremity gangrene. The patient was admitted in June with altered mental status which resolved and he declined amputation. At this time, he was brought in by after the physician hospital aides and assistants teacher that visits him recommended him to come to the emergency room because of worsening pain in the lower back and lower extremities. The pain excruciating and he literally feels that he has been eating from the inside. No headaches, no visual symptoms, sore throat, odynophagia, dysphagia, no vomiting, no dyspnea or cough, no abdominal pain. PAST MEDICAL HISTORY: PVD, necrotic toes and ulcers following cardiac arrest induced DIC, type 2 diabetes, necrotic bowel requiring segmental resection. The midline wound from the laparotomy, colostomy placement and a decubitus ulcer , presacral region. PAST SURGICAL HISTORY: Hip fusion, sigmoid and left colon partial colectomy transverse colostomy, tonsillectomy, bypass graft surgery, and left leg revascularization. FAMILY HISTORY: Noncontributory. ALLERGIES: None. CURRENT MEDICATIONS: Lamar, DuoNeb, Lipitor, Lioresal, Coreg, Cymbalta, Pepcid , Amaryl, insulin, lactulose, Merrem, and pioglitazone. PHYSICAL EXAMINATION: VITAL SIGNS: Temperature has been normal, BP 150/71, pulse 69, respirations 16 , O2 sat 98% room air. GENERAL: Appears chronically ill, but in no acute distress. Bilateral areas of dry gangrene involving all the toes in the left foot and the MPJ skin site, a large round ulcer measuring about 4 cm in the right leg and lateral aspect of the right leg and other area of dry gangrene close to the knee area lateral aspect. Patient has an area of ulceration in presacral region. The patient has a PICC line in the left upper extremity. No Mandel catheter. HEENT: Ocular movements conjugate. Oral cavity normal except for missing teeth. NECK: Supple, jugular vein distention. LUNGS: Symmetric clear breath sounds. HEART: S1, S2 with regular rate. No S3, no significant murmurs. ABDOMEN: Soft, not distended or tender. Colostomy bag full of liquid stool, light brown colored. No bladder distention, no ascites, could not feel any dorsalis pedis, faintly palpable popliteals. LABORATORY DATA: White cell count 13.6 and 10.94, hemoglobin 10.1, platelets at 307. Sodium 137, creatinine 0.66. Lactic acid 1.5, AST 13, ALT 13, alkaline phosphatase is 80, bilirubin 0.3, albumin 3.1. Microbiology with aeruginosa from leg. This is a swab from a dry area, so does not necessarily reflect pathogenic role. He did have gram variable marlene from a venous sample from 08/05/2017, which biochemically resembled a Clostridium species, not perfringens, most likely an anaerobe from the legs. He did have Clostridium septicum from 07/31/2017 blood samples, probably the same one from 08/05/2017. Imaging studies include foot x-ray with no evidence of osteomyelitis. ASSESSMENT AND DISCUSSION: Peripheral vascular disease, type 2 diabetes with recent complications related to post-cardiac arrest, disseminated intravascular coagulation with the need for partial colectomy and development of dry gangrene lower extremities. Now patient being admitted repeatedly for various complications of the above. He did have a Clostridium species bacteremia in the recent past which was detected in 2 different moments days apart. This most likely reflects intermittent bacteremia associated with the gangrenous areas in lower extremities. At this point, I would highly recommend the family to reconsider and agree to amputation at the below knee level. May require above-knee amputation depending on findings during the surgical procedure. This would have to be bilateral. Continue meropenem. Regarding the presacral ulceration, it appears to have red tissue at the base, some maceration of the skin and some yeast colonization around the area. We will start some oral Diflucan for that. The imaging study in view of the worsening pain to verify that there has been no progression of the extent of the wound towards the bone area. The base appears to be red. MTDD
[2017-09-03] MEDS: HYDROcodone/Acetaminophen 7.5/325 mg Tablet PO PRN ×3 (03:51→20:21)
[2017-09-03] MEDS: MEROPENEM 1 GM/50 ML 1 GM in Premix Bag 1 BAG IVPB SCH ×3 (05:59→20:23)
[2017-09-03] MEDS: HumaLOG 300 UNITS/3 ML VIAL SC PRN (05:59)
[2017-09-03] MEDS: DULoxetine 60 MG CAP PO SCH (08:35)
[2017-09-03] MEDS: Baclofen 10 MG TAB PO SCH ×3 (08:36→20:21)
[2017-09-03] MEDS: Tamsulosin HCl 0.4 MG CAP PO SCH (08:36)
[2017-09-03] MEDS: Famotidine 20 MG TAB PO SCH ×2 (08:36→20:21)
[2017-09-03] MEDS: Atorvastatin Calcium 40 MG TAB PO SCH (08:37)
[2017-09-03] MEDS: Docusate 100 MG CAP PO SCH ×2 (08:37→20:24)
[2017-09-03] MEDS: Carvedilol 6.25 MG TAB PO SCH ×2 (08:37→20:21)
[2017-09-03] MEDS: Glimepiride 2 MG TAB PO SCH ×2 (08:40→20:21)
[2017-09-03] MEDS: Pioglitazone HCl 15 MG TAB PO SCH (08:40)
[2017-09-03] MEDS: Morphine 4 MG/ML VIAL IV PRN ×2 (10:15→14:53)
[2017-09-03] MEDS: Fluconazole 100 MG TAB PO SCH (12:28)
--- NOTE | 2017-09-03 14:01 | PDOC.PN ---
- Subjective Encounter Start Date: 09/02/17 Encounter Start Time: 10:00 Patient is seen today, c/o back pain with Decumbitus ulcer cellulitis. No other concern noted. - Objective Resuscitation Status: Resuscitation Status FULL:Full Resuscitation MAR Reviewed: Yes Vital Signs & Weight: Vital Signs (12 hours) Temp Pulse Resp BP Pulse Ox 09/03/17 12:00 97.5 F L 74 18 132/56 L 98 09/03/17 08:00 98.2 F 71 16 118/62 95 09/03/17 05:27 98.8 F 83 18 173/66 H 95 Weight Admit Weight 138 lb 14.259 oz Weight 138 lb 14.259 oz I&O: 09/02/17 09/03/17 09/04/17 06:59 06:59 06:59 Intake Total 600 Output Total 600 800 Balance 0 -800 Result Diagrams: 09/02/17 04:36 09/02/17 04:36 Additional Labs: Accuchecks 09/03/17 09/03/17 09/02/17 12:10 05:28 19:24 POC Glucose 257 H 219 H 286 H 09/02/17 09/01/17 16:48 19:36 POC Glucose 201 H 215 H Radiology Reviewed by me: Yes Phys Exam - Physical Examination HEENT: PERRLA, moist MMs Neck: no nodes, no JVD Respiratory: no wheezing, no rales Cardiovascular: RRR, no significant murmur Gastrointestinal: soft, non-tender Musculoskeletal: no edema, pulses present Neurological: non-focal, normal sensation Dx/Plan (1) Sepsis affecting skin Code(s): A41.9 - SEPSIS, UNSPECIFIED ORGANISM Status: Acute Comment: Will continue with meropenam, WBC trneding down, Will closley monitor. (2) CHF (congestive heart failure) Code(s): I50.9 - HEART FAILURE, UNSPECIFIED Status: Chronic Qualifiers: Qualified Code(s): I50.32 - Chronic diastolic (congestive) heart failure Comment: No exsacrbation noted. will d/c Fluids, (3) COPD (chronic obstructive pulmonary disease) Status: Chronic Qualifiers: COPD type: chronic bronchitis Chronic bronchitis type: unspecified Qualified Code(s): J42 - Unspecified chronic bronchitis Comment: No exacerbation, continue nebs prn (4) Diabetes type 2, uncontrolled Code(s): E11.65 - TYPE 2 DIABETES MELLITUS WITH HYPERGLYCEMIA Status: Chronic Comment: stable, continue SSI. (5) Gangrenous toe Code(s): I96 - GANGRENE, NOT ELSEWHERE CLASSIFIED Status: Chronic Comment: dry gangrene, and recurrent proximal infections, continue Meropenam. Consult ID. (6) Hypertension Code(s): I10 - ESSENTIAL (PRIMARY) HYPERTENSION Status: Chronic Comment: stable. (7) Wound, open, abdominal wall, anterior Code(s): S31.109A - UNSP OPN WND ABD WALL, UNSP Q W/O PENET PERIT CAV, INIT Status: Chronic Comment: local care, wound care recommedations - Plan cont current plan of care, continue antibiotics, PT/OT, secondary social studies teacher, respiratory therapy, incentive spirometry, out of bed/ambulate * . - Discharge Day Encounter end time: 10:35 Review of Systems - Review of Systems Constitutional: negative: fever, chills, sweats, weakness, malaise, other Eyes: negative: Pain, Vision Change, Conjunctivae Inflammation, Eyelid Inflammation, Redness, Other Respiratory: negative: Cough, Dry, Shortness of Breath, Hemoptysis, SOB with Excertion, Pleuritic Pain, Sputum, Wheezing Gastrointestinal: Vomiting Musculoskeletal: Back Pain - Medications/Allergies Allergies/Adverse Reactions: Allergies Allergy/AdvReac Type Severity Reaction Status Date / Time No Known Drug Allergies Allergy Verified 09/01/17 14:52 Medications: Current Medications Acetaminophen (Tylenol) 650 mg PO Q4H PRN PRN Reason: Headache/Fever or Pain Last Admin: 09/02/17 05:03 Dose: 650 mg Hydrocodone Bitart/Acetaminophen (Talent 7.5/325) 1 tab PO Q4H PRN PRN Reason: Moderate Pain (4-6) Last Admin: 09/03/17 08:43 Dose: 1 tab Albuterol/Ipratropium (Duoneb) 3 ml NEB Q4H PRN PRN Reason: SOB &/or Wheezing Atorvastatin Calcium (Lipitor) 40 mg PO DAILY [facility] Last Admin: 09/03/17 08:37 Dose: 40 mg Baclofen (Lioresal) 20 mg PO TID [facility] Last Admin: 09/03/17 12:28 Dose: 20 mg Carvedilol (Coreg) 6.25 mg PO BID [facility] Last Admin: 09/03/17 08:37 Dose: 6.25 mg Dextrose/Water (Dextrose 50%) 25 gm SLOW IVP PRN PRN PRN Reason: Hypoglycemia Docusate Sodium (Colace) 100 mg PO BID [facility] Last Admin: 09/03/17 08:37 Dose: Not Given Duloxetine HCl (Cymbalta) 60 mg PO QAM [facility] Last Admin: 09/03/17 08:35 Dose: 60 mg Famotidine (Pepcid) 20 mg PO BID [facility] Last Admin: 09/03/17 08:36 Dose: 20 mg Fluconazole (Diflucan) 100 mg PO 1300 [facility] Last Admin: 09/03/17 12:28 Dose: 100 mg Glimepiride (Amaryl) 2 mg PO BID [facility] Last Admin: 09/03/17 08:40 Dose: 2 mg Glucagon (Glucagon) 1 mg IM PRN PRN PRN Reason: Hypoglycemia Dextrose/Water (D5w) 1,000 mls @ 0 mls/hr IV .Q0M PRN; As Directed PRN Reason: Hypoglycemia Meropenem 1 gm/ Device 50 mls @ 100 mls/hr IVPB Q8HR [facility] Last Admin: 09/03/17 12:28 Dose: 50 mls Insulin Human Lispro (Humalog) 0 units SC .MODERATE SLIDING SC PRN PRN Reason: Moderate Correctional Scale Last Admin: 09/03/17 05:59 Dose: 4 unit Insulin Human Lispro (Humalog) 0 units SC .BEDTIME SLIDING SC PRN PRN Reason: Bedtime Correctional Scale Lactulose (Lactulose) 20 gm PO DAILYPRN PRN PRN Reason: Constipation Morphine Sulfate (Morphine) 3 mg IV Q4H PRN PRN Reason: PAIN Last Admin: 09/03/17 10:15 Dose: 3 mg Ondansetron HCl (Zofran Odt) 4 mg PO Q6H PRN PRN Reason: Nausea/Vomiting Pioglitazone HCl (Actos) 30 mg PO DAILY [facility] Last Admin: 09/03/17 08:40 Dose: 30 mg Senna (Senokot) 2 tab PO HSPRN PRN PRN Reason: Constipation Sodium Chloride (Flush - Normal Saline) 10 ml IVF Q12HR [facility] Last Admin: 09/03/17 08:52 Dose: 10 ml Sodium Chloride (Flush - Normal Saline) 10 ml IVF PRN PRN PRN Reason: Saline Flush Tamsulosin HCl (Flomax) 0.4 mg PO DAILY [facility] Last Admin: 09/03/17 08:36 Dose: 0.4 mg Tramadol HCl (Ultram) 50 mg PO Q6H PRN PRN Reason: .BREAKTHROUGH PAIN Last Admin: 09/01/17 21:31 Dose: 50 mg
--- NOTE | 2017-09-03 21:08 | PRG ---
DATE OF SERVICE: 09/03/2017 SUBJECTIVE: Mr. Bennett denies any headaches, no sore throat, no respiratory symptoms, no abdominal pa in. Still with pain in the lower extremities. OBJECTIVE: VITAL SIGNS: Normal except for elevation of systolic blood pressure. LUNGS: Clear. HEART: S1, S2, regular rate. ABDOMEN: Soft. EXTREMITY: Lower extremity areas of necrosis with gangrenous noted before. LABORATORY DATA: White cell count 10.4, hemoglobin 10.1. Blood cultures no growth thus far. ASSESSMENT AND DISCUSSION: Peripheral vascular disease and type 2 diabetes with complications follow ing cardiac arrest, now with gangrenous areas with dry gangrene in lower extremities with recurrent e pisodes of infection associated with these areas of exposure. Amputation has been considered and dec lined in the past. It is not clear what the family decision going to be going forward. If they deci de for conservative management, then may consider suppressive antimicrobial therapy with amoxicillin or Pen VK.
--- NOTE | 2017-09-04 02:00 | PDOC.EVN ---
Event Note - Event Note Event Note: RN called - Pt pulled PICC line. Will obtain peripheral IV access
[2017-09-04] MEDS: MEROPENEM 1 GM/50 ML 1 GM in Premix Bag 1 BAG IVPB SCH ×3 (06:08→21:43)
[2017-09-04] MEDS: Baclofen 10 MG TAB PO SCH (08:09)
[2017-09-04] MEDS: DULoxetine 60 MG CAP PO SCH (08:09)
[2017-09-04] MEDS: Tamsulosin HCl 0.4 MG CAP PO SCH (08:09)
[2017-09-04] MEDS: Atorvastatin Calcium 40 MG TAB PO SCH (08:09)
[2017-09-04] MEDS: Carvedilol 6.25 MG TAB PO SCH ×2 (08:09→20:31)
[2017-09-04] MEDS: Famotidine 20 MG TAB PO SCH ×2 (08:09→20:33)
[2017-09-04] MEDS: Docusate 100 MG CAP PO SCH ×2 (08:09→20:33)
[2017-09-04] MEDS: Glimepiride 2 MG TAB PO SCH ×2 (09:10→20:33)
[2017-09-04] MEDS: Pioglitazone HCl 15 MG TAB PO SCH (09:10)
[2017-09-04] MEDS: HYDROcodone/Acetaminophen 7.5/325 mg Tablet PO PRN (10:13)
[2017-09-04] MEDS: Fluconazole 100 MG TAB PO SCH (12:01)
[2017-09-04] MEDS: Morphine 4 MG/ML VIAL SLOW IVP PRN (12:13)
--- NOTE | 2017-09-04 13:35 | PDOC.PN ---
- Subjective Encounter Start Date: 09/04/17 Encounter Start Time: 09:00 Subjective: is not fully oriented, is tossing on bed to make himself comfy -: appears to have pain in left leg and sacral area - Objective Resuscitation Status: Resuscitation Status FULL:Full Resuscitation MAR Reviewed: Yes Vital Signs & Weight: Vital Signs (12 hours) Temp Pulse Resp BP BP Pulse Ox 09/04/17 11:52 98.3 F 78 16 178/70 H 97 09/04/17 08:09 163/64 H 09/04/17 08:06 98.1 F 73 16 163/64 H 97 09/04/17 08:00 98.1 F 73 16 Weight Admit Weight 138 lb 14.259 oz Weight 138 lb 14.259 oz I&O: 09/03/17 09/04/17 09/05/17 06:59 06:59 06:59 Intake Total 1100 Output Total 800 Balance -800 1100 Result Diagrams: 09/02/17 04:36 09/02/17 04:36 Additional Labs: Accuchecks 09/04/17 09/04/17 09/03/17 11:49 05:13 20:51 POC Glucose 227 H 218 H 205 H 09/03/17 16:31 POC Glucose 207 H Phys Exam - Physical Examination HEENT: PERRLA Neck: no JVD, supple Respiratory: no wheezing, no rales Cardiovascular: RRR, no significant murmur Gastrointestinal: soft, non-tender, positive bowel sounds Musculoskeletal: no edema has tips of toes b/l with dry gangrene, b/l leg and heel ulcer Neurological: non-focal, moves all 4 limbs Dx/Plan (1) Sepsis affecting skin Code(s): A41.9 - SEPSIS, UNSPECIFIED ORGANISM Status: Acute (2) Decubitus ulcer, stage 4 with infection Code(s): L89.94 - PRESSURE ULCER OF UNSPECIFIED SITE, STAGE 4; L08.9 - LOCAL INFECTION OF THE SKIN AND SUBCUTANEOUS TISSUE, UNSP Status: Acute (3) Benign enlargement of prostate Code(s): N40.0 - BENIGN PROSTATIC HYPERPLASIA WITHOUT LOWER URINRY TRACT SYMP Status: Chronic Qualifiers: Lower urinary tract symptom presence: unspecified whether lower urinary tract symptoms present Qualified Code(s): N40.0 - Benign prostatic hyperplasia without lower urinary tract symptoms (4) CAD (coronary artery disease) Code(s): I25.10 - ATHSCL HEART DISEASE OF [place] CORONARY ARTERY W/O ANG PCTRS Status: Chronic Qualifiers: Coronary Disease-Associated Artery/Lesion type: [place] artery [place] vs. transplanted heart: [place] heart Associated angina: without angina Qualified Code(s): I25.10 - Atherosclerotic heart disease of [place] coronary artery without angina pectoris (5) COPD (chronic obstructive pulmonary disease) Status: Chronic Qualifiers: COPD type: chronic bronchitis Chronic bronchitis type: unspecified Qualified Code(s): J42 - Unspecified chronic bronchitis Comment: No exacerbation, continue nebs prn (6) DM2 (diabetes mellitus, type 2) Status: Chronic Qualifiers: Diabetes mellitus mcc insulin use: with taffy candy maker use Diabetes mellitus complication status: with circulatory complication (7) Dyslipidemia Code(s): E78.5 - HYPERLIPIDEMIA, UNSPECIFIED Status: Chronic (8) HTN (hypertension) Code(s): I10 - ESSENTIAL (PRIMARY) HYPERTENSION Status: Chronic Qualifiers: Hypertension type: essential hypertension Qualified Code(s): I10 - Essential (primary) hypertension (9) Macrocytic anemia Code(s): D53.9 - NUTRITIONAL ANEMIA, UNSPECIFIED Status: Chronic (10) PVD (peripheral vascular disease) Code(s): I73.9 - PERIPHERAL VASCULAR DISEASE, UNSPECIFIED Status: Chronic - Plan multiple decubitus ulcers -: is on meropenem, diflucan -: d/w and pt, is agreable for amputation, will get to see him -: morphine prn, dc baclofen (watch for withdrawal seizures) -: pulled his picc line out, not keeping his abd binder, will add geodon prn * . Review of Systems - Medications/Allergies Allergies/Adverse Reactions: Allergies Allergy/AdvReac Type Severity Reaction Status Date / Time No Known Drug Allergies Allergy Verified 09/01/17 14:52 Medications: Current Medications Acetaminophen (Tylenol) 650 mg PO Q4H PRN PRN Reason: Headache/Fever or Pain Last Admin: 09/02/17 05:03 Dose: 650 mg Hydrocodone Bitart/Acetaminophen ([place] 7.5/325) 1 tab PO Q4H PRN PRN Reason: Moderate Pain (4-6) Last Admin: 09/03/17 20:21 Dose: 1 tab Albuterol/Ipratropium (Duoneb) 3 ml NEB Q4H PRN PRN Reason: SOB &/or Wheezing Atorvastatin Calcium (Lipitor) 40 mg PO DAILY [facility] Last Admin: 09/04/17 08:09 Dose: 40 mg Carvedilol (Coreg) 6.25 mg PO BID [facility] Last Admin: 09/04/17 08:09 Dose: 6.25 mg Dextrose/Water (Dextrose 50%) 25 gm SLOW IVP PRN PRN PRN Reason: Hypoglycemia Docusate Sodium (Colace) 100 mg PO BID [facility] Last Admin: 09/04/17 08:09 Dose: 100 mg Duloxetine HCl (Cymbalta) 60 mg PO QAM [facility] Last Admin: 09/04/17 08:09 Dose: 60 mg Famotidine (Pepcid) 20 mg PO BID [facility] Last Admin: 09/04/17 08:09 Dose: 20 mg Fluconazole (Diflucan) 100 mg PO 1300 [facility] Last Admin: 09/04/17 12:01 Dose: Not Given Glimepiride (Amaryl) 2 mg PO BID [facility] Last Admin: 09/04/17 09:10 Dose: Not Given Glucagon (Glucagon) 1 mg IM PRN PRN PRN Reason: Hypoglycemia Dextrose/Water (D5w) 1,000 mls @ 0 mls/hr IV .Q0M PRN; As Directed PRN Reason: Hypoglycemia Meropenem 1 gm/ Device 50 mls @ 100 mls/hr IVPB Q8HR [facility] Last Admin: 09/04/17 13:19 Dose: 50 mls Insulin Human Lispro (Humalog) 0 units SC .MODERATE SLIDING SC PRN PRN Reason: Moderate Correctional Scale Last Admin: 09/03/17 05:59 Dose: 4 unit Insulin Human Lispro (Humalog) 0 units SC .BEDTIME SLIDING SC PRN PRN Reason: Bedtime Correctional Scale Lactulose (Lactulose) 20 gm PO DAILYPRN PRN PRN Reason: Constipation Metformin HCl (Glucophage) 500 mg PO BID[facility] Morphine Sulfate (Morphine) 3 mg IV Q4H PRN PRN Reason: PAIN Last Admin: 09/03/17 14:53 Dose: 3 mg Morphine Sulfate (Morphine) 2 mg SLOW IVP Q4H PRN PRN Reason: Chest Pain/BP Elevations Last Admin: 09/04/17 12:13 Dose: 2 mg Ondansetron HCl (Zofran Odt) 4 mg PO Q6H PRN PRN Reason: Nausea/Vomiting Pioglitazone HCl (Actos) 30 mg PO DAILY [facility] Last Admin: 09/04/17 09:10 Dose: Not Given Senna (Senokot) 2 tab PO HSPRN PRN PRN Reason: Constipation Sodium Chloride (Flush - Normal Saline) 10 ml IVF Q12HR [facility] Last Admin: 09/04/17 08:10 Dose: Not Given Sodium Chloride (Flush - Normal Saline) 10 ml IVF PRN PRN PRN Reason: Saline Flush Tamsulosin HCl (Flomax) 0.4 mg PO DAILY [facility] Last Admin: 09/04/17 08:09 Dose: 0.4 mg Tramadol HCl (Ultram) 50 mg PO Q6H PRN PRN Reason: .BREAKTHROUGH PAIN Last Admin: 09/01/17 21:31 Dose: 50 mg
[2017-09-04] MEDS ORDERED: Ziprasidone 20 MG VIAL IM PRN (13:46)
[2017-09-04] MEDS: metFORMIN 500 MG TAB PO SCH (16:02)
[2017-09-04] MEDS: Morphine 4 MG/ML VIAL IV PRN (16:04)
[2017-09-05] MEDS: Morphine 4 MG/ML VIAL IV PRN ×4 (00:38→22:32)
[2017-09-05] MEDS ORDERED: hydrALAZINE 20 MG/ML VIAL SLOW IVP PRN (01:47)
[2017-09-05] MEDS: MEROPENEM 1 GM/50 ML 1 GM in Premix Bag 1 BAG IVPB SCH ×3 (05:08→16:00)
[2017-09-05] MEDS: DULoxetine 60 MG CAP PO SCH (08:16)
[2017-09-05] MEDS: Docusate 100 MG CAP PO SCH ×2 (08:16→20:13)
[2017-09-05] MEDS: Tamsulosin HCl 0.4 MG CAP PO SCH (08:16)
[2017-09-05] MEDS: Famotidine 20 MG TAB PO SCH ×2 (08:16→20:13)
[2017-09-05] MEDS: Atorvastatin Calcium 40 MG TAB PO SCH (08:16)
[2017-09-05] MEDS: metFORMIN 500 MG TAB PO SCH ×2 (08:16→16:00)
[2017-09-05] MEDS: Carvedilol 6.25 MG TAB PO SCH ×2 (08:16→20:13)
[2017-09-05] MEDS: Pioglitazone HCl 15 MG TAB PO SCH (08:17)
[2017-09-05] MEDS: Glimepiride 2 MG TAB PO SCH (08:18)
[2017-09-05] MEDS: Morphine 4 MG/ML VIAL SLOW IVP PRN (10:23)
--- NOTE | 2017-09-05 11:46 | PDOC.PN ---
- Subjective Encounter Start Date: 09/05/17 Encounter Start Time: 09:15 Subjective: awake, responds well to verbal questions -: is moving all extremities - Objective Resuscitation Status: Resuscitation Status FULL:Full Resuscitation MAR Reviewed: Yes Vital Signs & Weight: Vital Signs (12 hours) Temp Pulse Resp BP BP Pulse Ox 09/05/17 11:22 98.2 F 80 20 145/74 H 96 09/05/17 08:16 132/73 09/05/17 08:00 97.8 F 106 H 20 93 L 09/05/17 07:25 97.8 F 106 H 20 132/73 93 L 09/05/17 03:59 97.5 F L 97 20 159/70 H 92 L 09/05/17 02:29 87 182/80 H 09/05/17 01:32 87 182/80 H 09/05/17 00:56 98.2 F 79 18 185/75 H 93 L Weight Admit Weight 138 lb 14.259 oz Weight 138 lb 14.259 oz I&O: 09/04/17 09/05/17 09/06/17 06:59 06:59 06:59 Intake Total 1100 550 240 Output Total 350 Balance 1100 200 240 Result Diagrams: 09/02/17 04:36 09/02/17 04:36 Additional Labs: Accuchecks 09/05/17 09/04/17 09/04/17 03:31 19:46 11:49 POC Glucose 264 H 262 H 227 H Phys Exam - Physical Examination HEENT: PERRLA, moist MMs Neck: no JVD, supple Respiratory: no wheezing, no rales Cardiovascular: RRR, no significant murmur Gastrointestinal: soft, non-tender, positive bowel sounds b/l leg ulcers, sacral decub Neurological: non-focal, moves all 4 limbs Psychiatric: A&O x 3 Dx/Plan (1) Sepsis affecting skin Code(s): A41.9 - SEPSIS, UNSPECIFIED ORGANISM Status: Acute (2) Decubitus ulcer, stage 4 with infection Code(s): L89.94 - PRESSURE ULCER OF UNSPECIFIED SITE, STAGE 4; L08.9 - LOCAL INFECTION OF THE SKIN AND SUBCUTANEOUS TISSUE, UNSP Status: Acute (3) Benign enlargement of prostate Code(s): N40.0 - BENIGN PROSTATIC HYPERPLASIA WITHOUT LOWER URINRY TRACT SYMP Status: Chronic Qualifiers: Lower urinary tract symptom presence: unspecified whether lower urinary tract symptoms present Qualified Code(s): N40.0 - Benign prostatic hyperplasia without lower urinary tract symptoms (4) CAD (coronary artery disease) Code(s): I25.10 - ATHSCL HEART DISEASE OF [place] CORONARY ARTERY W/O ANG PCTRS Status: Chronic Qualifiers: Coronary Disease-Associated Artery/Lesion type: [place] artery [place] vs. transplanted heart: [place] heart Associated angina: without angina Qualified Code(s): I25.10 - Atherosclerotic heart disease of [place] coronary artery without angina pectoris (5) COPD (chronic obstructive pulmonary disease) Status: Chronic Qualifiers: COPD type: chronic bronchitis Chronic bronchitis type: unspecified Qualified Code(s): J42 - Unspecified chronic bronchitis Comment: No exacerbation, continue nebs prn (6) DM2 (diabetes mellitus, type 2) Status: Chronic Qualifiers: Diabetes mellitus intermodal dispatcher insulin use: with mcfp use Diabetes mellitus complication status: with circulatory complication (7) Dyslipidemia Code(s): E78.5 - HYPERLIPIDEMIA, UNSPECIFIED Status: Chronic (8) HTN (hypertension) Code(s): I10 - ESSENTIAL (PRIMARY) HYPERTENSION Status: Chronic Qualifiers: Hypertension type: essential hypertension Qualified Code(s): I10 - Essential (primary) hypertension (9) Macrocytic anemia Code(s): D53.9 - NUTRITIONAL ANEMIA, UNSPECIFIED Status: Chronic (10) PVD (peripheral vascular disease) Code(s): I73.9 - PERIPHERAL VASCULAR DISEASE, UNSPECIFIED Status: Chronic - Plan await surgical opinion reg amputation -: he appears to be pain free this morning -: is on meropenem and diflucan, morphine prn -: geodon for agitation prn -: continue coreg, metformin, glimepide and lipitor * . Review of Systems - Medications/Allergies Allergies/Adverse Reactions: Allergies Allergy/AdvReac Type Severity Reaction Status Date / Time No Known Drug Allergies Allergy Verified 09/01/17 14:52 Medications: Current Medications Acetaminophen (Tylenol) 650 mg PO Q4H PRN PRN Reason: Headache/Fever or Pain Last Admin: 09/02/17 05:03 Dose: 650 mg Hydrocodone Bitart/Acetaminophen ([place] 7.5/325) 1 tab PO Q4H PRN PRN Reason: Moderate Pain (4-6) Last Admin: 09/03/17 20:21 Dose: 1 tab Albuterol/Ipratropium (Duoneb) 3 ml NEB Q4H PRN PRN Reason: SOB &/or Wheezing Atorvastatin Calcium (Lipitor) 40 mg PO DAILY [facility] Last Admin: 09/05/17 08:16 Dose: 40 mg Carvedilol (Coreg) 6.25 mg PO BID [facility] Last Admin: 09/05/17 08:16 Dose: 6.25 mg Dextrose/Water (Dextrose 50%) 25 gm SLOW IVP PRN PRN PRN Reason: Hypoglycemia Docusate Sodium (Colace) 100 mg PO BID [facility] Last Admin: 09/05/17 08:16 Dose: 100 mg Duloxetine HCl (Cymbalta) 60 mg PO QAM [facility] Last Admin: 09/05/17 08:16 Dose: 60 mg Famotidine (Pepcid) 20 mg PO BID [facility] Last Admin: 09/05/17 08:16 Dose: 20 mg Fluconazole (Diflucan) 100 mg PO 1300 [facility] Last Admin: 09/04/17 12:01 Dose: Not Given Glimepiride (Amaryl) 2 mg PO BID [facility] Last Admin: 09/05/17 08:18 Dose: 2 mg Glucagon (Glucagon) 1 mg IM PRN PRN PRN Reason: Hypoglycemia Hydralazine HCl (Apresoline) 10 mg SLOW IVP Q4H PRN PRN Reason: SBP Greater Than 180 Last Admin: 09/05/17 02:29 Dose: 10 mg Dextrose/Water (D5w) 1,000 mls @ 0 mls/hr IV .Q0M PRN; As Directed PRN Reason: Hypoglycemia Meropenem 1 gm/ Device 50 mls @ 100 mls/hr IVPB Q8HR [facility] Last Admin: 09/05/17 05:08 Dose: 50 mls Insulin Human Lispro (Humalog) 0 units SC .MODERATE SLIDING SC PRN PRN Reason: Moderate Correctional Scale Last Admin: 09/03/17 05:59 Dose: 4 unit Insulin Human Lispro (Humalog) 0 units SC .BEDTIME SLIDING SC PRN PRN Reason: Bedtime Correctional Scale Lactulose (Lactulose) 20 gm PO DAILYPRN PRN PRN Reason: Constipation Metformin HCl (Glucophage) 500 mg PO BID-[facility] Last Admin: 05/09/18 08:16 Dose: 500 mg Morphine Sulfate (Morphine) 3 mg IV Q4H PRN PRN Reason: PAIN Last Admin: 09/05/17 06:15 Dose: 3 mg Morphine Sulfate (Morphine) 2 mg SLOW IVP Q4H PRN PRN Reason: Chest Pain/BP Elevations Last Admin: 09/05/17 10:23 Dose: 2 mg Ondansetron HCl (Zofran Odt) 4 mg PO Q6H PRN PRN Reason: Nausea/Vomiting Pioglitazone HCl (Actos) 30 mg PO DAILY [facility] Last Admin: 09/05/17 08:17 Dose: 30 mg Senna (Senokot) 2 tab PO HSPRN PRN PRN Reason: Constipation Sodium Chloride (Flush - Normal Saline) 10 ml IVF Q12HR [facility] Last Admin: 09/05/17 08:19 Dose: 10 ml Sodium Chloride (Flush - Normal Saline) 10 ml IVF PRN PRN PRN Reason: Saline Flush Tamsulosin HCl (Flomax) 0.4 mg PO DAILY [facility] Last Admin: 09/05/17 08:16 Dose: 0.4 mg Tramadol HCl (Ultram) 50 mg PO Q6H PRN PRN Reason: .BREAKTHROUGH PAIN Last Admin: 09/01/17 21:31 Dose: 50 mg Ziprasidone (Geodon) 20 mg IM Q12H PRN PRN Reason: Agitation
[2017-09-05] MEDS: Fluconazole 100 MG TAB PO SCH (13:14)
--- NOTE | 2017-09-05 15:06 | CON ---
DATE OF CONSULTATION: 09/05/2017 CONSULTING PHYSICIAN: Dr. De Leon. REASON FOR CONSULTATION: Bilateral lower extremity ulcers and foot gangrene, nonhealing wounds of ab domen and sacrum. HISTORY OF PRESENT ILLNESS: Please see my full consultation that I dictated on 08/03/2017. I had se en him during that admission one month ago for the exact same problems. He returns to the hospital at this time apparently because he ran out of antibiotics and was feeling poorly. In the emergency room, he was noted to have an elevated white blood cell count and elevated lactate level. He was admitted to the hospital and started on IV antibiotics. Consultation was obta ined with Dr. Mcdonough as well. He has had wound care performed by wound care team. Apparently, last night he became confused and be ana pulling off dressings off of his abdomen and legs as well as his colostomy appliance. There was question about metabolic encephalopathy at last admission. It appears to have some component of that at this admission as well. PAST MEDICAL HISTORY: Unchanged. PAST SURGICAL HISTORY: Unchanged. ALLERGIES: Unchanged. MEDICATIONS: Unchanged. PERSONAL AND SOCIAL HISTORY: Unchanged. PHYSICAL EXAMINATION: VITAL SIGNS: He has been afebrile since he was admitted on 09/01/2017. Pulse has been 80-106 and bl ood pressure is 145/74 today. GENERAL: Full physical examination was performed without new findings in comparison to prior consult ation. ABDOMEN: Still has an open wound on his abdomen. It does not appear to be changed from last visit. There is a significant wound that has some reasonable granulation tissue without evidence of infecti on or necrosis. However, it is not making significant progress and this has been present since his s urgery that I performed on February (6 months). EXTREMITIES: Femoral pulses are very difficult to palpate. There is dry gangrene involving all toes on his left foot as well as dry gangrene of the right great toe and the posterior right heel. On th e lateral left leg, there is a small punched out ulcer measuring about 4 x 3 cm with underlying devit alized soupy appearing muscle. On the right leg, there is a wound that appears to measure about 12 c m in length x 5 cm in width. Eschar was debrided at last visit and some of this was reformed. All o f the tissue on the surface looks nonviable and again soupy/necrotic. ASSESSMENT: Patient with multiple areas of ischemia. 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 His wounds on his bilateral lower extremit ies are not healing and in fact appeared worse. He has presented to the hospital with some degree of complications related to this with possible early sepsis. I had a conversation at last visit in regards to my recommendation for bilateral above knee amputatio n and the patient and his are not in favor of proceeding with surgery at that time. They had as ked whether he can have a prosthesis to walk and I told him that it would be inappropriate to give sharri berman a prosthesis because he is far too weak to have ambulate with bilateral above knee prosthesis. At this point, I still would recommend a bilateral above knee amputation. His wounds will clearly ne kassidy get better and will continue to cause problems and infections. At this point, it appears that he and his resigned to the idea of bilateral above knee amputation. At this point, however, he ap pears significantly weaker than he was last month. He was confused last night. His albumin at prese ntation was 3.1 and I will repeat this tomorrow. I believe that he would benefit from a period of wo und care, antibiotics and nutrition. If he appears to be stable, mentally clear, and somewhat strong er, then I would plan on proceeding with above knee amputation next week. I believe he would be bett er served by continuing his hospitalization until that time. I will revisit with the patient and his regarding this.
[2017-09-05] MEDS: HumaLOG 300 UNITS/3 ML VIAL SC PRN (16:03)
--- NOTE | 2017-09-05 17:01 | SPC ---
ULTRASOUND GUIDED PICC PLACEMENT 09/05/17 HISTORY: Gangrene. IV antibiotics and IV access required. COMPARISON: None. EXPOSURE: 0.5 minutes. 2798 mGy*cm2. FINDINGS: Technically successful left upper extremity PICC line placement. Single lumen catheter terminates in the right atrium. Trim length is 43 cm. Catheter flushes and aspirates without difficulty. TECHNIQUE: Consent is obtained for a left upper extremity PICC line with ultrasound guidance. The left arm was p repped and draped in the in the sterile fashion. 1% lidocaine, buffered with sodium bicarbonate used for local anesthesia. Under ultrasound guidance, micropuncture needle was used to cannulate the brach ial vein. A 0.018 guide wire was advanced through the level of the superior vena cava. Under fluorosc opy, the wires advanced into the inferior vena cava to document venous access. Wire was subsequently pulled back to the left atrium. Tract was dilated. Single lumen 5 Wolof catheter was advanced over t he wire. The wire was removed. Trim length is 43 cm. Catheter flushes and aspirates without difficult y. IMPRESSION: Successful left upper extremity PICC line placement with ultrasound guidance. POS: TRANG
[2017-09-06] MEDS: MEROPENEM 1 GM/50 ML 1 GM in Premix Bag 1 BAG IVPB SCH ×3 (00:08→17:25)
[2017-09-06] MEDS: Morphine 4 MG/ML VIAL SLOW IVP PRN ×4 (03:25→21:41)
[2017-09-06 07:03] LABS: #Eosinphils 0.1 thou/uL (0.0-0.7); #Lymphocytes 2.9 thou/uL (1.20-3.40); #Monocytes 0.7 thou/uL (0.11-0.59); #Neutrophils 5.5 thou/uL (1.40-6.50); %Basophils 0.2 % (0.0-1.0); %Eosinophils 1.1 % (0.0-10.0); %Lymphocytes 31.5 % (21.0-51.0); %Monocytes 7.2 % (0.0-10.0); Hemoglobin 10.6 g/dL (14.0-18.0); Mean Corpuscular HGB CONC 31.2 g/dL (32.0-36.0); Mean Corpuscular Hemoglobin 27.1 pg (27.0-31.0); Mean Corpuscular Volume 86.9 fl (80.0-94.0); Mean Platelet Volume 7.2 fL (7.4-10.4); Platelet Count 415 thou/uL (130-400); RBC Distribution Width 16.4 % (11.5-14.5); Red Blood Cell (RBC) Count 3.91 mill/uL (4.70-6.10); White Blood Cell (WBC) Count 9.2 thou/uL (4.8-10.8)
[2017-09-06 07:22] LABS: ALT (SGPT) 14 U/L (8-55); AST (SGOT) 15 U/L (5-34); Alkaline Phosphatase 81 U/L (40-150); Anion Gap 12 mmol/L (10-20); BUN (Urea Nitrogen) 13 mg/dL (8.4-25.7); Bilirubin, Total 0.4 mg/dL (0.2-1.2); Calc. Creatinine Clearance 85 mL/min (70-130); Calcium 8.7 mg/dL (7.8-10.44); Carbon Dioxide 25 mmol/L (23-31); Chloride 105 mmol/L (98-107); Estimated GFR-MDRD Greater than 90; Glucose 164 mg/dL (83-110); Potassium 3.7 mmol/L (3.5-5.1); Sodium 138 mmol/L (136-145)
[2017-09-06] MEDS: Atorvastatin Calcium 40 MG TAB PO SCH (08:16)
[2017-09-06] MEDS: Famotidine 20 MG TAB PO SCH ×2 (08:16→20:29)
[2017-09-06] MEDS: DULoxetine 60 MG CAP PO SCH (08:16)
[2017-09-06] MEDS: Carvedilol 6.25 MG TAB PO SCH ×2 (08:16→20:28)
[2017-09-06] MEDS: Docusate 100 MG CAP PO SCH ×2 (08:17→20:28)
[2017-09-06] MEDS: Tamsulosin HCl 0.4 MG CAP PO SCH (08:17)
[2017-09-06] MEDS: Glimepiride 2 MG TAB PO SCH ×2 (08:17→17:25)
[2017-09-06] MEDS: metFORMIN 500 MG TAB PO SCH ×2 (08:17→17:24)
[2017-09-06] MEDS: Pioglitazone HCl 15 MG TAB PO SCH (08:18)
[2017-09-06] MEDS: Acetaminophen 325 MG TAB PO PRN ×2 (10:33→15:41)
--- NOTE | 2017-09-06 10:55 | PDOC.PN ---
- Subjective Encounter Start Date: 09/06/17 Encounter Start Time: 09:35 Subjective: awake, responds well to verbal stimuli -: sitter at bedside - Objective Resuscitation Status: Resuscitation Status FULL:Full Resuscitation MAR Reviewed: Yes Vital Signs & Weight: Vital Signs (12 hours) Temp Pulse Resp BP BP Pulse Ox 09/06/17 08:16 161/71 H 09/06/17 08:00 98.3 F 75 20 96 09/06/17 07:54 98.3 F 75 20 161/71 H 96 09/06/17 04:51 98.5 F 78 16 136/65 96 09/06/17 00:09 98.6 F 87 18 169/71 H 93 L Weight Admit Weight 138 lb 14.259 oz Weight 138 lb 14.259 oz I&O: 09/05/17 09/06/17 09/07/17 06:59 06:59 06:59 Intake Total 550 1260 240 Output Total 350 100 Balance 200 1160 240 Result Diagrams: 09/06/17 06:54 09/06/17 06:54 Additional Labs: Accuchecks 09/06/17 09/05/17 09/05/17 04:30 19:57 16:02 POC Glucose 165 H 122 H 410 H 09/05/17 11:29 POC Glucose 338 H Phys Exam - Physical Examination HEENT: PERRLA, sclera anicteric Neck: no JVD, supple Respiratory: no wheezing, no rales Cardiovascular: RRR, no significant murmur Gastrointestinal: soft, non-tender, positive bowel sounds abd non healing wound in midline multiple ulcers b/l LE, sacral decub Neurological: non-focal, moves all 4 limbs Dx/Plan (1) Sepsis affecting skin Code(s): A41.9 - SEPSIS, UNSPECIFIED ORGANISM Status: Acute (2) Decubitus ulcer, stage 4 with infection Code(s): L89.94 - PRESSURE ULCER OF UNSPECIFIED SITE, STAGE 4; L08.9 - LOCAL INFECTION OF THE SKIN AND SUBCUTANEOUS TISSUE, UNSP Status: Acute (3) Benign enlargement of prostate Code(s): N40.0 - BENIGN PROSTATIC HYPERPLASIA WITHOUT LOWER URINRY TRACT SYMP Status: Chronic Qualifiers: Lower urinary tract symptom presence: unspecified whether lower urinary tract symptoms present Qualified Code(s): N40.0 - Benign prostatic hyperplasia without lower urinary tract symptoms (4) CAD (coronary artery disease) Code(s): I25.10 - ATHSCL HEART DISEASE OF [place] CORONARY ARTERY W/O ANG PCTRS Status: Chronic Qualifiers: Coronary Disease-Associated Artery/Lesion type: [place] artery [place] vs. transplanted heart: [place] heart Associated angina: without angina Qualified Code(s): I25.10 - Atherosclerotic heart disease of [place] coronary artery without angina pectoris (5) COPD (chronic obstructive pulmonary disease) Status: Chronic Qualifiers: COPD type: chronic bronchitis Chronic bronchitis type: unspecified Qualified Code(s): J42 - Unspecified chronic bronchitis Comment: No exacerbation, continue nebs prn (6) DM2 (diabetes mellitus, type 2) Status: Chronic Qualifiers: Diabetes mellitus ocular pathologist insulin use: with shelter use Diabetes mellitus complication status: with circulatory complication (7) Dyslipidemia Code(s): E78.5 - HYPERLIPIDEMIA, UNSPECIFIED Status: Chronic (8) HTN (hypertension) Code(s): I10 - ESSENTIAL (PRIMARY) HYPERTENSION Status: Chronic Qualifiers: Hypertension type: essential hypertension Qualified Code(s): I10 - Essential (primary) hypertension (9) Macrocytic anemia Code(s): D53.9 - NUTRITIONAL ANEMIA, UNSPECIFIED Status: Chronic (10) PVD (peripheral vascular disease) Code(s): I73.9 - PERIPHERAL VASCULAR DISEASE, UNSPECIFIED Status: Chronic - Plan is on meropenem -: is oriented well this am, revisited amputation issue and agrees for surgery -: wound care, encourage po intake -: oob to chair and mobilize as tolerated -: cognitively has sun downing, got picc line yesterday * . Review of Systems - Medications/Allergies Allergies/Adverse Reactions: Allergies Allergy/AdvReac Type Severity Reaction Status Date / Time No Known Drug Allergies Allergy Verified 09/01/17 14:52 Medications: Current Medications Acetaminophen (Tylenol) 650 mg PO Q4H PRN PRN Reason: Headache/Fever or Pain Last Admin: 09/06/17 10:33 Dose: 650 mg Hydrocodone Bitart/Acetaminophen ([place] 7.5/325) 1 tab PO Q4H PRN PRN Reason: Moderate Pain (4-6) Last Admin: 09/03/17 20:21 Dose: 1 tab Albuterol/Ipratropium (Duoneb) 3 ml NEB Q4H PRN PRN Reason: SOB &/or Wheezing Atorvastatin Calcium (Lipitor) 40 mg PO DAILY [facility] Last Admin: 09/06/17 08:16 Dose: 40 mg Carvedilol (Coreg) 6.25 mg PO BID [facility] Last Admin: 09/06/17 08:16 Dose: 6.25 mg Dextrose/Water (Dextrose 50%) 25 gm SLOW IVP PRN PRN PRN Reason: Hypoglycemia Docusate Sodium (Colace) 100 mg PO BID [facility] Last Admin: 09/06/17 08:17 Dose: 100 mg Duloxetine HCl (Cymbalta) 60 mg PO QAM [facility] Last Admin: 09/06/17 08:16 Dose: 60 mg Famotidine (Pepcid) 20 mg PO BID [facility] Last Admin: 09/06/17 08:16 Dose: 20 mg Fluconazole (Diflucan) 100 mg PO 1300 [facility] Last Admin: 09/05/17 13:14 Dose: 100 mg Glimepiride (Amaryl) 2 mg PO BID-AC [facility] Last Admin: 09/06/17 08:17 Dose: 2 mg Glucagon (Glucagon) 1 mg IM PRN PRN PRN Reason: Hypoglycemia Hydralazine HCl (Apresoline) 10 mg SLOW IVP Q4H PRN PRN Reason: SBP Greater Than 180 Last Admin: 09/05/17 02:29 Dose: 10 mg Dextrose/Water (D5w) 1,000 mls @ 0 mls/hr IV .Q0M PRN; As Directed PRN Reason: Hypoglycemia Meropenem 1 gm/ Device 50 mls @ 100 mls/hr IVPB 0800,1600,2359 [facility] Last Admin: 09/06/17 08:16 Dose: 50 mls Insulin Human Lispro (Humalog) 0 units SC .MODERATE SLIDING SC PRN PRN Reason: Moderate Correctional Scale Last Admin: 09/05/17 16:03 Dose: 10 unit Insulin Human Lispro (Humalog) 0 units SC .BEDTIME SLIDING SC PRN PRN Reason: Bedtime Correctional Scale Lactulose (Lactulose) 20 gm PO DAILYPRN PRN PRN Reason: Constipation Metformin HCl (Glucophage) 500 mg PO BID-[facility] Last Admin: 09/06/17 08:17 Dose: 500 mg Morphine Sulfate (Morphine) 3 mg IV Q4H PRN PRN Reason: PAIN Last Admin: 09/05/17 22:32 Dose: 3 mg Morphine Sulfate (Morphine) 2 mg SLOW IVP Q4H PRN PRN Reason: Chest Pain/BP Elevations Last Admin: 09/06/17 08:18 Dose: 2 mg Ondansetron HCl (Zofran Odt) 4 mg PO Q6H PRN PRN Reason: Nausea/Vomiting Pioglitazone HCl (Actos) 30 mg PO DAILY [facility] Last Admin: 09/06/17 08:18 Dose: 30 mg Senna (Senokot) 2 tab PO HSPRN PRN PRN Reason: Constipation Sodium Chloride (Flush - Normal Saline) 10 ml IVF Q12HR [facility] Last Admin: 09/06/17 08:19 Dose: 10 ml Sodium Chloride (Flush - Normal Saline) 10 ml IVF PRN PRN PRN Reason: Saline Flush Tamsulosin HCl (Flomax) 0.4 mg PO DAILY [facility] Last Admin: 09/06/17 08:17 Dose: 0.4 mg Tramadol HCl (Ultram) 50 mg PO Q6H PRN PRN Reason: .BREAKTHROUGH PAIN Last Admin: 09/01/17 21:31 Dose: 50 mg Ziprasidone (Geodon) 20 mg IM Q12H PRN PRN Reason: Agitation
[2017-09-06] MEDS: Morphine 4 MG/ML VIAL IV PRN (12:23)
[2017-09-06] MEDS: Fluconazole 100 MG TAB PO SCH (12:23)
--- NOTE | 2017-09-06 16:42 | PRG ---
DATE OF SERVICE: 09/06/2017 HISTORY OF PRESENT ILLNESS: Mr. Bennett is hospital day #6 of his recent admission related to an infec tions associated with his wounds on his legs. I initially saw him yesterday in consultation. Today, he appears significantly improved. He is speaking more clearly and much more articulate. He does n ot have the confusion and weakness. It was quite apparent yesterday. He continues to receive wound care and intravenous antibiotics. He is currently on meropenem and fluconazole. Labs that I obtained today showed that his white count is stable at 9.2, hemoglobin is 10.6. Differe ntial is unremarkable. Electrolytes are normal. Albumin is stable at 3.0. His glucose levels range d from 120-410. PHYSICAL EXAMINATION: On examination today, he is afebrile, pulse 72, blood pressure 122/68. His ph ysical examination is unchanged. The wounds on his lateral lower legs were not inspected today. ASSESSMENT AND PLAN: Today, I had a lengthy conversation with Mr. Bennett and his . I suspect daniel t without surgery he will have recurrent problems with infections, pain and deterioration of the woun ds on his lower legs. Since he is not a candidate for any further revascularization, the only surger y that could be performed to treat this is a bilateral above knee amputation. Since he appears to be clinically stable, at this time, I would recommend proceeding with this. Since he is still hypoalbu minemic, I would recommend continued course of IV antibiotics and appropriate nutrition. I will sche dule his surgery for 09/11/2017. Between now and then, appropriate wound care, antibiotics and nutrition should be administered to optimize his chances at the time of surgery. I have discusse d the operation as well as potential risks and they both understand and agree to proceed. I believe he would benefit from a course of postoperative rehabilitation after that. I will perform a surgery on , I believe he should be stable for transfer to a rehabilitation facility by Sunday09/14/2017. I will consult case management to begin investigating that. I would also like to increas e his physical activity between now and surgery. Physical therapy will be requested to help with tra nsfers and getting out of bed.
[2017-09-07] MEDS: MEROPENEM 1 GM/50 ML 1 GM in Premix Bag 1 BAG IVPB SCH ×3 (00:26→16:23)
[2017-09-07] MEDS: HYDROcodone/Acetaminophen 7.5/325 mg Tablet PO PRN ×4 (00:27→21:23)
[2017-09-07] MEDS: Morphine 4 MG/ML VIAL SLOW IVP PRN ×4 (01:56→21:31)
[2017-09-07] MEDS: Glimepiride 2 MG TAB PO SCH ×2 (09:31→16:23)
[2017-09-07] MEDS: Famotidine 20 MG TAB PO SCH ×2 (09:31→21:23)
[2017-09-07] MEDS: DULoxetine 60 MG CAP PO SCH (09:31)
[2017-09-07] MEDS: Atorvastatin Calcium 40 MG TAB PO SCH (09:32)
[2017-09-07] MEDS: Carvedilol 6.25 MG TAB PO SCH ×2 (09:32→21:23)
[2017-09-07] MEDS: Tamsulosin HCl 0.4 MG CAP PO SCH (09:32)
[2017-09-07] MEDS: Docusate 100 MG CAP PO SCH ×2 (09:34→21:23)
[2017-09-07] MEDS: metFORMIN 500 MG TAB PO SCH ×2 (09:34→16:23)
[2017-09-07] MEDS: Pioglitazone HCl 15 MG TAB PO SCH (13:29)
[2017-09-07] MEDS: Fluconazole 100 MG TAB PO SCH (13:37)
--- NOTE | 2017-09-07 15:17 | PDOC.PN ---
- Subjective Encounter Start Date: 09/07/17 Encounter Start Time: 09:00 Subjective: awake, no complaints -: at bedside - Objective Resuscitation Status: Resuscitation Status FULL:Full Resuscitation MAR Reviewed: Yes Vital Signs & Weight: Vital Signs (12 hours) Temp Pulse Resp BP BP Pulse Ox 09/07/17 11:31 99.2 F 69 16 116/58 L 95 09/07/17 09:32 106/58 L 09/07/17 08:00 99.2 F 69 16 95 09/07/17 07:49 98.5 F 72 16 145/68 H 93 L Weight Admit Weight 138 lb 14.259 oz Weight 138 lb 14.259 oz I&O: 09/06/17 09/07/17 09/08/17 06:59 06:59 06:59 Intake Total 1260 600 Output Total 100 Balance 1160 600 Result Diagrams: 09/06/17 06:54 09/06/17 06:54 Additional Labs: Accuchecks 09/07/17 09/07/17 09/06/17 11:33 04:24 19:26 POC Glucose 143 H 84 148 H 09/06/17 17:03 POC Glucose 165 H Phys Exam - Physical Examination HEENT: PERRLA, moist MMs Neck: no JVD, supple Respiratory: no wheezing, no rales Cardiovascular: RRR, no significant murmur Gastrointestinal: soft, non-tender, positive bowel sounds abd midline non healing ulcer Musculoskeletal: no edema b/l leg and sacral ulcers Neurological: non-focal, moves all 4 limbs Psychiatric: A&O x 3 Dx/Plan (1) Sepsis affecting skin Code(s): A41.9 - SEPSIS, UNSPECIFIED ORGANISM Status: Acute Comment: resolving (2) Decubitus ulcer, stage 4 with infection Code(s): L89.94 - PRESSURE ULCER OF UNSPECIFIED SITE, STAGE 4; L08.9 - LOCAL INFECTION OF THE SKIN AND SUBCUTANEOUS TISSUE, UNSP Status: Acute (3) Benign enlargement of prostate Code(s): N40.0 - BENIGN PROSTATIC HYPERPLASIA WITHOUT LOWER URINRY TRACT SYMP Status: Chronic Qualifiers: Lower urinary tract symptom presence: unspecified whether lower urinary tract symptoms present Qualified Code(s): N40.0 - Benign prostatic hyperplasia without lower urinary tract symptoms (4) CAD (coronary artery disease) Code(s): I25.10 - ATHSCL HEART DISEASE OF [place] CORONARY ARTERY W/O ANG PCTRS Status: Chronic Qualifiers: Coronary Disease-Associated Artery/Lesion type: [place] artery [place] vs. transplanted heart: [place] heart Associated angina: without angina Qualified Code(s): I25.10 - Atherosclerotic heart disease of [place] coronary artery without angina pectoris (5) COPD (chronic obstructive pulmonary disease) Status: Chronic Qualifiers: COPD type: chronic bronchitis Chronic bronchitis type: unspecified Qualified Code(s): J42 - Unspecified chronic bronchitis Comment: No exacerbation, continue nebs prn (6) DM2 (diabetes mellitus, type 2) Status: Chronic Qualifiers: Diabetes mellitus petroleum terminal plant operator insulin use: with petroleum terminal plant operator use Diabetes mellitus complication status: with circulatory complication (7) Dyslipidemia Code(s): E78.5 - HYPERLIPIDEMIA, UNSPECIFIED Status: Chronic (8) HTN (hypertension) Code(s): I10 - ESSENTIAL (PRIMARY) HYPERTENSION Status: Chronic Qualifiers: Hypertension type: essential hypertension Qualified Code(s): I10 - Essential (primary) hypertension (9) Macrocytic anemia Code(s): D53.9 - NUTRITIONAL ANEMIA, UNSPECIFIED Status: Chronic (10) PVD (peripheral vascular disease) Code(s): I73.9 - PERIPHERAL VASCULAR DISEASE, UNSPECIFIED Status: Chronic - Plan hemostable -: is on meropenem and diflucan -: for likely b/l bka on sunday -: wound care for ulcers -: d/w at bedside * . Review of Systems - Medications/Allergies Allergies/Adverse Reactions: Allergies Allergy/AdvReac Type Severity Reaction Status Date / Time No Known Drug Allergies Allergy Verified 09/01/17 14:52 Medications: Current Medications Acetaminophen (Tylenol) 650 mg PO Q4H PRN PRN Reason: Headache/Fever or Pain Last Admin: 09/06/17 15:41 Dose: 650 mg Hydrocodone Bitart/Acetaminophen ([place] 7.5/325) 1 tab PO Q4H PRN PRN Reason: Moderate Pain (4-6) Last Admin: 09/07/17 13:36 Dose: 1 tab Albuterol/Ipratropium (Duoneb) 3 ml NEB Q4H PRN PRN Reason: SOB &/or Wheezing Atorvastatin Calcium (Lipitor) 40 mg PO DAILY [facility] Last Admin: 09/07/17 09:32 Dose: 40 mg Carvedilol (Coreg) 6.25 mg PO BID [facility] Last Admin: 09/07/17 09:32 Dose: Not Given Dextrose/Water (Dextrose 50%) 25 gm SLOW IVP PRN PRN PRN Reason: Hypoglycemia Docusate Sodium (Colace) 100 mg PO BID [facility] Last Admin: 09/07/17 09:34 Dose: Not Given Duloxetine HCl (Cymbalta) 60 mg PO QAM [facility] Last Admin: 09/07/17 09:31 Dose: 60 mg Famotidine (Pepcid) 20 mg PO BID [facility] Last Admin: 09/07/17 09:31 Dose: 20 mg Fluconazole (Diflucan) 100 mg PO 1300 [facility] Last Admin: 09/07/17 13:37 Dose: 100 mg Glimepiride (Amaryl) 2 mg PO BID-[facility] Last Admin: 09/07/17 09:31 Dose: 2 mg Glucagon (Glucagon) 1 mg IM PRN PRN PRN Reason: Hypoglycemia Hydralazine HCl (Apresoline) 10 mg SLOW IVP Q4H PRN PRN Reason: SBP Greater Than 180 Last Admin: 09/05/17 02:29 Dose: 10 mg Dextrose/Water (D5w) 1,000 mls @ 0 mls/hr IV .Q0M PRN; As Directed PRN Reason: Hypoglycemia Meropenem 1 gm/ Device 50 mls @ 100 mls/hr IVPB 0800,1600,2359 [facility] Last Admin: 09/07/17 09:34 Dose: 50 mls Insulin Human Lispro (Humalog) 0 units SC .MODERATE SLIDING SC PRN PRN Reason: Moderate Correctional Scale Last Admin: 09/05/17 16:03 Dose: 10 unit Insulin Human Lispro (Humalog) 0 units SC .BEDTIME SLIDING SC PRN PRN Reason: Bedtime Correctional Scale Lactulose (Lactulose) 20 gm PO DAILYPRN PRN PRN Reason: Constipation Metformin HCl (Glucophage) 500 mg PO BID-[facility] Last Admin: 09/07/17 09:34 Dose: 500 mg Morphine Sulfate (Morphine) 2 mg SLOW IVP Q4H PRN PRN Reason: Chest Pain/BP Elevations Last Admin: 09/07/17 10:49 Dose: 2 mg Ondansetron HCl (Zofran Odt) 4 mg PO Q6H PRN PRN Reason: Nausea/Vomiting Pioglitazone HCl (Actos) 30 mg PO DAILY [facility] Last Admin: 09/07/17 13:29 Dose: Not Given Senna (Senokot) 2 tab PO HSPRN PRN PRN Reason: Constipation Sodium Chloride (Flush - Normal Saline) 10 ml IVF Q12HR [facility] Last Admin: 09/07/17 09:34 Dose: 10 ml Sodium Chloride (Flush - Normal Saline) 10 ml IVF PRN PRN PRN Reason: Saline Flush Tamsulosin HCl (Flomax) 0.4 mg PO DAILY [facility] Last Admin: 09/07/17 09:32 Dose: 0.4 mg Tramadol HCl (Ultram) 50 mg PO Q6H PRN PRN Reason: .BREAKTHROUGH PAIN Last Admin: 09/01/17 21:31 Dose: 50 mg Ziprasidone (Geodon) 20 mg IM Q12H PRN PRN Reason: Agitation
[2017-09-07] MEDS: traMADol HCl 50 MG TAB PO PRN (16:24)
[2017-09-08] MEDS: traMADol HCl 50 MG TAB PO PRN ×2 (00:03→06:26)
[2017-09-08] MEDS: MEROPENEM 1 GM/50 ML 1 GM in Premix Bag 1 BAG IVPB SCH ×3 (00:04→16:50)
[2017-09-08] MEDS: Morphine 4 MG/ML VIAL SLOW IVP PRN ×4 (02:21→21:10)
[2017-09-08] MEDS: HYDROcodone/Acetaminophen 7.5/325 mg Tablet PO PRN ×4 (02:23→18:44)
[2017-09-08] MEDS: Famotidine 20 MG TAB PO SCH ×2 (09:14→20:13)
[2017-09-08] MEDS: Carvedilol 6.25 MG TAB PO SCH ×2 (09:14→20:13)
[2017-09-08] MEDS: Atorvastatin Calcium 40 MG TAB PO SCH (09:14)
[2017-09-08] MEDS: Glimepiride 2 MG TAB PO SCH ×2 (09:15→16:49)
[2017-09-08] MEDS: metFORMIN 500 MG TAB PO SCH ×2 (09:15→16:50)
[2017-09-08] MEDS: Docusate 100 MG CAP PO SCH ×2 (09:15→20:13)
[2017-09-08] MEDS: DULoxetine 60 MG CAP PO SCH (09:15)
[2017-09-08] MEDS: Tamsulosin HCl 0.4 MG CAP PO SCH (09:15)
[2017-09-08] MEDS: Fluconazole 100 MG TAB PO SCH (09:17)
[2017-09-08] MEDS: Pioglitazone HCl 15 MG TAB PO SCH (09:50)
--- NOTE | 2017-09-08 11:19 | PRG ---
DATE OF SERVICE: 09/08/2017 SUBJECTIVE: Mr. Bennett is hospital day #7 in this admission related to infections associated with his leg wounds. He remained stable and without complaint. He has dressings intact on his bilateral low er legs. He tells me he is eating well and his colostomy is functioning well. OBJECTIVE: VITAL SIGNS: On examination, he is afebrile, pulse 74, blood pressure 145/66. LUNGS: Clear to auscultation. ABDOMEN: Benign. EXTREMITIES: Leg wounds are appropriately dressed and not inspected at this time. LABORATORY DATA: There are no new labs from today. His glucose levels are much better controlled, c urrently with no higher [id number]. ASSESSMENT: The patient seems to be doing well and progressing appropriately with current antibiotic s, wound care, and nutrition. He is stabilizing appropriately with plans to proceed with a bilateral [id number] this upcoming week.
--- NOTE | 2017-09-08 11:48 | PDOC.PN ---
- Subjective Encounter Start Date: 09/08/17 Encounter Start Time: 09:35 Subjective: awake, oriented well -: is hungry after eating breakfast -: no sob - Objective Resuscitation Status: Resuscitation Status FULL:Full Resuscitation MAR Reviewed: Yes Vital Signs & Weight: Vital Signs (12 hours) Temp Pulse Resp BP BP Pulse Ox 09/08/17 09:14 145/66 H 09/08/17 08:00 98.6 F 74 16 145/66 H 93 L 09/08/17 05:15 97.7 F 82 16 119/68 96 09/08/17 01:13 98.7 F 100 16 117/74 90 L Weight Admit Weight 138 lb 14.259 oz Weight 138 lb 14.259 oz I&O: 09/07/17 09/08/17 09/09/17 06:59 06:59 06:59 Intake Total 600 1050 Output Total 1350 Balance 600 -300 Result Diagrams: 09/06/17 06:54 09/06/17 06:54 Additional Labs: Accuchecks 09/08/17 09/07/17 09/07/17 05:12 21:09 15:44 POC Glucose 118 H 107 93 09/07/17 11:33 POC Glucose 143 H Phys Exam - Physical Examination HEENT: PERRLA, moist MMs Neck: no JVD, supple Respiratory: no wheezing, no rales Cardiovascular: RRR, no significant murmur Gastrointestinal: soft, non-tender, positive bowel sounds multiple ulcers+ b/l LE Neurological: non-focal, moves all 4 limbs Psychiatric: normal affect, A&O x 3 Dx/Plan (1) Sepsis affecting skin Code(s): A41.9 - SEPSIS, UNSPECIFIED ORGANISM Status: Acute Comment: resolving (2) Decubitus ulcer, stage 4 with infection Code(s): L89.94 - PRESSURE ULCER OF UNSPECIFIED SITE, STAGE 4; L08.9 - LOCAL INFECTION OF THE SKIN AND SUBCUTANEOUS TISSUE, UNSP Status: Acute (3) Benign enlargement of prostate Code(s): N40.0 - BENIGN PROSTATIC HYPERPLASIA WITHOUT LOWER URINRY TRACT SYMP Status: Chronic Qualifiers: Lower urinary tract symptom presence: unspecified whether lower urinary tract symptoms present Qualified Code(s): N40.0 - Benign prostatic hyperplasia without lower urinary tract symptoms (4) CAD (coronary artery disease) Code(s): I25.10 - ATHSCL HEART DISEASE OF [place] CORONARY ARTERY W/O ANG PCTRS Status: Chronic Qualifiers: Coronary Disease-Associated Artery/Lesion type: [place] artery [place] vs. 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 Diabetes mellitus complication status: with circulatory complication (7) Dyslipidemia Code(s): E78.5 - HYPERLIPIDEMIA, UNSPECIFIED Status: Chronic (8) HTN (hypertension) Code(s): I10 - ESSENTIAL (PRIMARY) HYPERTENSION Status: Chronic Qualifiers: Hypertension type: essential hypertension Qualified Code(s): I10 - Essential (primary) hypertension (9) Macrocytic anemia Code(s): D53.9 - NUTRITIONAL ANEMIA, UNSPECIFIED Status: Chronic (10) PVD (peripheral vascular disease) Code(s): I73.9 - PERIPHERAL VASCULAR DISEASE, UNSPECIFIED Status: Chronic - Plan is on meropenem and diflucan -: morphine and ultram prn -: metformin, actos, coreg, lipitor and flomax -: PT to restart mobilizing, is off 1:1 sitter now -: for aka on sunday * . Review of Systems - Medications/Allergies Allergies/Adverse Reactions: Allergies Allergy/AdvReac Type Severity Reaction Status Date / Time No Known Drug Allergies Allergy Verified 09/01/17 14:52 Medications: Current Medications Acetaminophen (Tylenol) 650 mg PO Q4H PRN PRN Reason: Headache/Fever or Pain Last Admin: 09/06/17 15:41 Dose: 650 mg Hydrocodone Bitart/Acetaminophen ([place] 7.5/325) 1 tab PO Q4H PRN PRN Reason: Moderate Pain (4-6) Last Admin: 09/08/17 09:19 Dose: 1 tab Albuterol/Ipratropium (Duoneb) 3 ml NEB Q4H PRN PRN Reason: SOB &/or Wheezing Atorvastatin Calcium (Lipitor) 40 mg PO DAILY [facility] Last Admin: 09/08/17 09:14 Dose: 40 mg Carvedilol (Coreg) 6.25 mg PO BID [facility] Last Admin: 09/08/17 09:14 Dose: 6.25 mg Dextrose/Water (Dextrose 50%) 25 gm SLOW IVP PRN PRN PRN Reason: Hypoglycemia Docusate Sodium (Colace) 100 mg PO BID [facility] Last Admin: 09/08/17 09:15 Dose: 100 mg Duloxetine HCl (Cymbalta) 60 mg PO QAM [facility] Last Admin: 09/08/17 09:15 Dose: 60 mg Famotidine (Pepcid) 20 mg PO BID [facility] Last Admin: 09/08/17 09:14 Dose: 20 mg Fluconazole (Diflucan) 100 mg PO 1300 [facility] Last Admin: 09/08/17 09:17 Dose: 100 mg Glimepiride (Amaryl) 2 mg PO BID-[facility] Last Admin: 09/08/17 09:15 Dose: 2 mg Glucagon (Glucagon) 1 mg IM PRN PRN PRN Reason: Hypoglycemia Hydralazine HCl (Apresoline) 10 mg SLOW IVP Q4H PRN PRN Reason: SBP Greater Than 180 Last Admin: 09/05/17 02:29 Dose: 10 mg Dextrose/Water (D5w) 1,000 mls @ 0 mls/hr IV .Q0M PRN; As Directed PRN Reason: Hypoglycemia Meropenem 1 gm/ Device 50 mls @ 100 mls/hr IVPB 0800,1600,2359 [facility] Last Admin: 09/08/17 09:15 Dose: 50 mls Insulin Human Lispro (Humalog) 0 units SC .MODERATE SLIDING SC PRN PRN Reason: Moderate Correctional Scale Last Admin: 09/05/17 16:03 Dose: 10 unit Insulin Human Lispro (Humalog) 0 units SC .BEDTIME SLIDING SC PRN PRN Reason: Bedtime Correctional Scale Lactulose (Lactulose) 20 gm PO DAILYPRN PRN PRN Reason: Constipation Metformin HCl (Glucophage) 500 mg PO BID-[facility] Last Admin: 09/08/17 09:15 Dose: 500 mg Morphine Sulfate (Morphine) 2 mg SLOW IVP Q4H PRN PRN Reason: Chest Pain/BP Elevations Last Admin: 09/08/17 11:31 Dose: 2 mg Ondansetron HCl (Zofran Odt) 4 mg PO Q6H PRN PRN Reason: Nausea/Vomiting Pioglitazone HCl (Actos) 30 mg PO DAILY [facility] Last Admin: 09/08/17 09:50 Dose: 30 mg Senna (Senokot) 2 tab PO HSPRN PRN PRN Reason: Constipation Sodium Chloride (Flush - Normal Saline) 10 ml IVF Q12HR [facility] Last Admin: 09/08/17 09:17 Dose: 10 ml Sodium Chloride (Flush - Normal Saline) 10 ml IVF PRN PRN PRN Reason: Saline Flush Tamsulosin HCl (Flomax) 0.4 mg PO DAILY [facility] Last Admin: 09/08/17 09:15 Dose: 0.4 mg Tramadol HCl (Ultram) 50 mg PO Q6H PRN PRN Reason: .BREAKTHROUGH PAIN Last Admin: 09/08/17 06:26 Dose: 50 mg Ziprasidone (Geodon) 20 mg IM Q12H PRN PRN Reason: Agitation
[2017-09-08] MEDS: HumaLOG 300 UNITS/3 ML VIAL SC PRN (13:18)
[2017-09-09] MEDS: MEROPENEM 1 GM/50 ML 1 GM in Premix Bag 1 BAG IVPB SCH ×4 (00:19→23:33)
[2017-09-09] MEDS: Glimepiride 2 MG TAB PO SCH ×2 (08:28→17:32)
[2017-09-09] MEDS: Atorvastatin Calcium 40 MG TAB PO SCH (08:28)
[2017-09-09] MEDS: Carvedilol 6.25 MG TAB PO SCH ×2 (08:28→20:17)
[2017-09-09] MEDS: metFORMIN 500 MG TAB PO SCH ×2 (08:28→16:41)
[2017-09-09] MEDS: DULoxetine 60 MG CAP PO SCH (08:28)
[2017-09-09] MEDS: Famotidine 20 MG TAB PO SCH ×2 (08:28→20:17)
[2017-09-09] MEDS: Docusate 100 MG CAP PO SCH ×2 (08:28→20:18)
[2017-09-09] MEDS: Tamsulosin HCl 0.4 MG CAP PO SCH (08:28)
[2017-09-09] MEDS: Pioglitazone HCl 15 MG TAB PO SCH (08:29)
[2017-09-09] MEDS: Fluconazole 100 MG TAB PO SCH (08:36)
[2017-09-09] MEDS: HYDROcodone/Acetaminophen 7.5/325 mg Tablet PO PRN ×4 (08:36→21:45)
[2017-09-09] MEDS: Morphine 4 MG/ML VIAL SLOW IVP PRN ×3 (11:32→20:25)
[2017-09-09] MEDS: HumaLOG 300 UNITS/3 ML VIAL SC PRN (12:59)
--- NOTE | 2017-09-09 15:22 | PDOC.PN ---
- Subjective Encounter Start Date: 09/09/17 Encounter Start Time: 11:15 Subjective: awake, no pain, slept well -: eating well, oriented well -: at bedside - Objective Resuscitation Status: Resuscitation Status FULL:Full Resuscitation MAR Reviewed: Yes Vital Signs & Weight: Vital Signs (12 hours) Temp Pulse Resp BP BP Pulse Ox 09/09/17 08:28 137/62 09/09/17 08:00 98.7 F 75 16 137/62 94 L Weight Admit Weight 138 lb 14.259 oz Weight 138 lb 14.259 oz I&O: 09/08/17 09/09/17 09/10/17 06:59 06:59 06:59 Intake Total 1050 180 Output Total 1350 1075 Balance -300 -895 Result Diagrams: 09/06/17 06:54 09/06/17 06:54 Additional Labs: Accuchecks 09/09/17 09/09/17 09/08/17 12:20 05:55 21:11 POC Glucose 177 H 137 H 180 H 09/08/17 16:49 POC Glucose 125 H Phys Exam - Physical Examination HEENT: PERRLA, moist MMs Neck: no JVD, supple Respiratory: no wheezing, no rales Cardiovascular: RRR, no significant murmur Gastrointestinal: soft, non-tender, positive bowel sounds abd midline wound+ multiple leg ulcers b/l, toe tip gangrene-most of toes Neurological: non-focal, moves all 4 limbs Psychiatric: normal affect, A&O x 3 Dx/Plan (1) Sepsis affecting skin Code(s): A41.9 - SEPSIS, UNSPECIFIED ORGANISM Status: Acute Comment: resolving (2) Decubitus ulcer, stage 4 with infection Code(s): L89.94 - PRESSURE ULCER OF UNSPECIFIED SITE, STAGE 4; L08.9 - LOCAL INFECTION OF THE SKIN AND SUBCUTANEOUS TISSUE, UNSP Status: Acute (3) Benign enlargement of prostate Code(s): N40.0 - BENIGN PROSTATIC HYPERPLASIA WITHOUT LOWER URINRY TRACT SYMP Status: Chronic Qualifiers: Lower urinary tract symptom presence: unspecified whether lower urinary tract symptoms present Qualified Code(s): N40.0 - Benign prostatic hyperplasia without lower urinary tract symptoms (4) CAD (coronary artery disease) Code(s): I25.10 - ATHSCL HEART DISEASE OF [place] CORONARY ARTERY W/O ANG PCTRS Status: Chronic Qualifiers: Coronary Disease-Associated Artery/Lesion type: [place] artery [place] vs. transplanted heart: [place] heart Associated angina: without angina Qualified Code(s): I25.10 - Atherosclerotic heart disease of [place] coronary artery without angina pectoris (5) COPD (chronic obstructive pulmonary disease) Status: Chronic Qualifiers: COPD type: chronic bronchitis Chronic bronchitis type: unspecified Qualified Code(s): J42 - Unspecified chronic bronchitis Comment: No exacerbation, continue nebs prn (6) DM2 (diabetes mellitus, type 2) Status: Chronic Qualifiers: Diabetes mellitus remote computer terminal operator insulin use: with halfway use Diabetes mellitus complication status: with circulatory complication (7) Dyslipidemia Code(s): E78.5 - HYPERLIPIDEMIA, UNSPECIFIED Status: Chronic (8) HTN (hypertension) Code(s): I10 - ESSENTIAL (PRIMARY) HYPERTENSION Status: Chronic Qualifiers: Hypertension type: essential hypertension Qualified Code(s): I10 - Essential (primary) hypertension (9) Macrocytic anemia Code(s): D53.9 - NUTRITIONAL ANEMIA, UNSPECIFIED Status: Chronic (10) PVD (peripheral vascular disease) Code(s): I73.9 - PERIPHERAL VASCULAR DISEASE, UNSPECIFIED Status: Chronic - Plan is on meropenem and diflucan -: on asp, lipitor, coreg -: morphine prn -: is eating well now, PT to mobilize as tolerated * . Review of Systems - Medications/Allergies Allergies/Adverse Reactions: Allergies Allergy/AdvReac Type Severity Reaction Status Date / Time No Known Drug Allergies Allergy Verified 09/01/17 14:52 Medications: Current Medications Acetaminophen (Tylenol) 650 mg PO Q4H PRN PRN Reason: Headache/Fever or Pain Last Admin: 09/06/17 15:41 Dose: 650 mg Hydrocodone Bitart/Acetaminophen ([place] 7.5/325) 1 tab PO Q4H PRN PRN Reason: Moderate Pain (4-6) Last Admin: 09/09/17 13:02 Dose: 1 tab Albuterol/Ipratropium (Duoneb) 3 ml NEB Q4H PRN PRN Reason: SOB &/or Wheezing Atorvastatin Calcium (Lipitor) 40 mg PO DAILY [facility] Last Admin: 09/09/17 08:28 Dose: 40 mg Carvedilol (Coreg) 6.25 mg PO BID [facility] Last Admin: 09/09/17 08:28 Dose: 6.25 mg Dextrose/Water (Dextrose 50%) 25 gm SLOW IVP PRN PRN PRN Reason: Hypoglycemia Docusate Sodium (Colace) 100 mg PO BID [facility] Last Admin: 09/09/17 08:28 Dose: Not Given Duloxetine HCl (Cymbalta) 60 mg PO QAM [facility] Last Admin: 09/09/17 08:28 Dose: 60 mg Famotidine (Pepcid) 20 mg PO BID [facility] Last Admin: 09/09/17 08:28 Dose: 20 mg Fluconazole (Diflucan) 100 mg PO 1300 [facility] Last Admin: 09/09/17 08:36 Dose: 100 mg Glimepiride (Amaryl) 2 mg PO BID-[facility] Last Admin: 09/09/17 08:28 Dose: 2 mg Glucagon (Glucagon) 1 mg IM PRN PRN PRN Reason: Hypoglycemia Hydralazine HCl (Apresoline) 10 mg SLOW IVP Q4H PRN PRN Reason: SBP Greater Than 180 Last Admin: 09/05/17 02:29 Dose: 10 mg Dextrose/Water (D5w) 1,000 mls @ 0 mls/hr IV .Q0M PRN; As Directed PRN Reason: Hypoglycemia Meropenem 1 gm/ Device 50 mls @ 100 mls/hr IVPB 0800,1600,2359 [facility] Last Admin: 09/09/17 15:15 Dose: 50 mls Insulin Human Lispro (Humalog) 0 units SC .MODERATE SLIDING SC PRN PRN Reason: Moderate Correctional Scale Last Admin: 09/09/17 12:59 Dose: 2 unit Insulin Human Lispro (Humalog) 0 units SC .BEDTIME SLIDING SC PRN PRN Reason: Bedtime Correctional Scale Lactulose (Lactulose) 20 gm PO DAILYPRN PRN PRN Reason: Constipation Metformin HCl (Glucophage) 500 mg PO BID-[facility] Last Admin: 09/09/17 08:28 Dose: 500 mg Morphine Sulfate (Morphine) 2 mg SLOW IVP Q4H PRN PRN Reason: Chest Pain/BP Elevations Last Admin: 09/09/17 15:12 Dose: 2 mg Ondansetron HCl (Zofran Odt) 4 mg PO Q6H PRN PRN Reason: Nausea/Vomiting Pioglitazone HCl (Actos) 30 mg PO DAILY [facility] Last Admin: 09/09/17 08:29 Dose: 30 mg Senna (Senokot) 2 tab PO HSPRN PRN PRN Reason: Constipation Sodium Chloride (Flush - Normal Saline) 10 ml IVF Q12HR [facility] Last Admin: 09/09/17 08:30 Dose: 10 ml Sodium Chloride (Flush - Normal Saline) 10 ml IVF PRN PRN PRN Reason: Saline Flush Tamsulosin HCl (Flomax) 0.4 mg PO DAILY [facility] Last Admin: 09/09/17 08:28 Dose: 0.4 mg Tramadol HCl (Ultram) 50 mg PO Q6H PRN PRN Reason: .BREAKTHROUGH PAIN Last Admin: 09/08/17 06:26 Dose: 50 mg Ziprasidone (Geodon) 20 mg IM Q12H PRN PRN Reason: Agitation
[2017-09-10] MEDS: Glimepiride 2 MG TAB PO SCH ×2 (08:30→17:15)
[2017-09-10] MEDS: DULoxetine 60 MG CAP PO SCH (08:30)
[2017-09-10] MEDS: Famotidine 20 MG TAB PO SCH ×2 (08:31→19:41)
[2017-09-10] MEDS: Atorvastatin Calcium 40 MG TAB PO SCH (08:31)
[2017-09-10] MEDS: MEROPENEM 1 GM/50 ML 1 GM in Premix Bag 1 BAG IVPB SCH ×3 (08:31→23:51)
[2017-09-10] MEDS: Pioglitazone HCl 15 MG TAB PO SCH (08:31)
[2017-09-10] MEDS: metFORMIN 500 MG TAB PO SCH ×2 (08:31→17:15)
[2017-09-10] MEDS: Carvedilol 6.25 MG TAB PO SCH ×2 (08:31→19:40)
[2017-09-10] MEDS: Tamsulosin HCl 0.4 MG CAP PO SCH (08:31)
[2017-09-10] MEDS: HYDROcodone/Acetaminophen 7.5/325 mg Tablet PO PRN ×4 (08:32→19:41)
[2017-09-10] MEDS: Docusate 100 MG CAP PO SCH ×2 (08:32→19:45)
[2017-09-10] MEDS: Fluconazole 100 MG TAB PO SCH (08:34)
[2017-09-10] MEDS: HumaLOG 300 UNITS/3 ML VIAL SC PRN (12:06)
[2017-09-10] MEDS: Morphine 4 MG/ML VIAL SLOW IVP PRN ×2 (14:32→22:08)
--- NOTE | 2017-09-10 16:36 | PDOC.PN ---
- Subjective Encounter Start Date: 09/10/17 Encounter Start Time: 11:15 Subjective: awake, at bedside -: no complaints, wants more food to eat -: fingerstick dropped to 67 this am - Objective Resuscitation Status: Resuscitation Status FULL:Full Resuscitation MAR Reviewed: Yes Vital Signs & Weight: Vital Signs (12 hours) Temp Pulse Resp BP BP Pulse Ox 09/10/17 08:31 163/69 H 09/10/17 08:00 98.5 F 71 16 09/10/17 07:58 98.5 F 71 16 163/69 H 97 Weight Admit Weight 138 lb 14.259 oz Weight 138 lb 14.259 oz I&O: 09/09/17 09/10/17 09/11/17 06:59 06:59 06:59 Intake Total 180 Output Total 1075 Balance -895 Result Diagrams: 09/06/17 06:54 09/06/17 06:54 Additional Labs: Accuchecks 09/10/17 09/10/17 09/09/17 11:14 05:01 19:22 POC Glucose 164 H 67 L 152 H 09/09/17 16:45 POC Glucose 131 H Phys Exam - Physical Examination HEENT: PERRLA, moist MMs Neck: no JVD, supple Respiratory: no wheezing, no rales Cardiovascular: RRR, no significant murmur Gastrointestinal: soft, non-tender, positive bowel sounds b/l leg ulcers with toe tip gangrene of most toes Neurological: non-focal, moves all 4 limbs Psychiatric: normal affect, A&O x 3 Dx/Plan (1) Sepsis affecting skin Code(s): A41.9 - SEPSIS, UNSPECIFIED ORGANISM Status: Acute Comment: resolving (2) Decubitus ulcer, stage 4 with infection Code(s): L89.94 - PRESSURE ULCER OF UNSPECIFIED SITE, STAGE 4; L08.9 - LOCAL INFECTION OF THE SKIN AND SUBCUTANEOUS TISSUE, UNSP Status: Acute (3) Benign enlargement of prostate Code(s): N40.0 - BENIGN PROSTATIC HYPERPLASIA WITHOUT LOWER URINRY TRACT SYMP Status: Chronic Qualifiers: Lower urinary tract symptom presence: unspecified whether lower urinary tract symptoms present Qualified Code(s): N40.0 - Benign prostatic hyperplasia without lower urinary tract symptoms (4) CAD (coronary artery disease) Code(s): I25.10 - ATHSCL HEART DISEASE OF [place] CORONARY ARTERY W/O ANG PCTRS Status: Chronic Qualifiers: Coronary Disease-Associated Artery/Lesion type: [place] artery [place] vs. transplanted heart: [place] heart Associated angina: without angina Qualified Code(s): I25.10 - Atherosclerotic heart disease of [place] coronary artery without angina pectoris (5) COPD (chronic obstructive pulmonary disease) Status: Chronic Qualifiers: COPD type: chronic bronchitis Chronic bronchitis type: unspecified Qualified Code(s): J42 - Unspecified chronic bronchitis Comment: No exacerbation, continue nebs prn (6) DM2 (diabetes mellitus, type 2) Status: Chronic Qualifiers: Diabetes mellitus residential insulin use: with remote computer terminal operator use Diabetes mellitus complication status: with circulatory complication (7) Dyslipidemia Code(s): E78.5 - HYPERLIPIDEMIA, UNSPECIFIED Status: Chronic (8) HTN (hypertension) Code(s): I10 - ESSENTIAL (PRIMARY) HYPERTENSION Status: Chronic Qualifiers: Hypertension type: essential hypertension Qualified Code(s): I10 - Essential (primary) hypertension (9) Macrocytic anemia Code(s): D53.9 - NUTRITIONAL ANEMIA, UNSPECIFIED Status: Chronic (10) PVD (peripheral vascular disease) Code(s): I73.9 - PERIPHERAL VASCULAR DISEASE, UNSPECIFIED Status: Chronic - Plan for aka b/l in am -: labs in am -: is on glimepride and metformin for dm -: on lipitor, coreg, flomax -: meropenem and diflucan, morphine/ultram prn * . Review of Systems - Medications/Allergies Allergies/Adverse Reactions: Allergies Allergy/AdvReac Type Severity Reaction Status Date / Time No Known Drug Allergies Allergy Verified 09/01/17 14:52 Medications: Current Medications Acetaminophen (Tylenol) 650 mg PO Q4H PRN PRN Reason: Headache/Fever or Pain Last Admin: 09/06/17 15:41 Dose: 650 mg Hydrocodone Bitart/Acetaminophen ([place] 7.5/325) 1 tab PO Q4H PRN PRN Reason: Moderate Pain (4-6) Last Admin: 09/10/17 15:50 Dose: 1 tab Albuterol/Ipratropium (Duoneb) 3 ml NEB Q4H PRN PRN Reason: SOB &/or Wheezing Atorvastatin Calcium (Lipitor) 40 mg PO DAILY [facility] Last Admin: 09/10/17 08:31 Dose: 40 mg Carvedilol (Coreg) 6.25 mg PO BID [facility] Last Admin: 09/10/17 08:31 Dose: 6.25 mg Dextrose/Water (Dextrose 50%) 25 gm SLOW IVP PRN PRN PRN Reason: Hypoglycemia Docusate Sodium (Colace) 100 mg PO BID [facility] Last Admin: 09/10/17 08:32 Dose: Not Given Duloxetine HCl (Cymbalta) 60 mg PO QAM [facility] Last Admin: 09/10/17 08:30 Dose: 60 mg Famotidine (Pepcid) 20 mg PO BID [facility] Last Admin: 09/10/17 08:31 Dose: 20 mg Fluconazole (Diflucan) 100 mg PO 1300 [facility] Last Admin: 09/10/17 08:34 Dose: 100 mg Glimepiride (Amaryl) 2 mg PO BID-[facility] Last Admin: 09/10/17 08:30 Dose: 2 mg Glucagon (Glucagon) 1 mg IM PRN PRN PRN Reason: Hypoglycemia Hydralazine HCl (Apresoline) 10 mg SLOW IVP Q4H PRN PRN Reason: SBP Greater Than 180 Last Admin: 09/05/17 02:29 Dose: 10 mg Dextrose/Water (D5w) 1,000 mls @ 0 mls/hr IV .Q0M PRN; As Directed PRN Reason: Hypoglycemia Meropenem 1 gm/ Device 50 mls @ 100 mls/hr IVPB 0800,1600,2359 [facility] Last Admin: 09/10/17 15:32 Dose: 50 mls Insulin Human Lispro (Humalog) 0 units SC .MODERATE SLIDING SC PRN PRN Reason: Moderate Correctional Scale Last Admin: 09/10/17 12:06 Dose: 2 unit Insulin Human Lispro (Humalog) 0 units SC .BEDTIME SLIDING SC PRN PRN Reason: Bedtime Correctional Scale Lactulose (Lactulose) 20 gm PO DAILYPRN PRN PRN Reason: Constipation Metformin HCl (Glucophage) 500 mg PO BID-[facility] Last Admin: 09/10/17 08:31 Dose: 500 mg Morphine Sulfate (Morphine) 2 mg SLOW IVP Q4H PRN PRN Reason: Chest Pain/BP Elevations Last Admin: 09/10/17 14:32 Dose: 2 mg Ondansetron HCl (Zofran Odt) 4 mg PO Q6H PRN PRN Reason: Nausea/Vomiting Pioglitazone HCl (Actos) 30 mg PO DAILY [facility] Last Admin: 09/10/17 08:31 Dose: 30 mg Senna (Senokot) 2 tab PO HSPRN PRN PRN Reason: Constipation Sodium Chloride (Flush - Normal Saline) 10 ml IVF Q12HR [facility] Last Admin: 09/10/17 08:32 Dose: 10 ml Sodium Chloride (Flush - Normal Saline) 10 ml IVF PRN PRN PRN Reason: Saline Flush Last Admin: 09/09/17 23:36 Dose: 10 ml Tamsulosin HCl (Flomax) 0.4 mg PO DAILY [facility] Last Admin: 09/10/17 08:31 Dose: 0.4 mg Tramadol HCl (Ultram) 50 mg PO Q6H PRN PRN Reason: .BREAKTHROUGH PAIN Last Admin: 09/08/17 06:26 Dose: 50 mg Ziprasidone (Geodon) 20 mg IM Q12H PRN PRN Reason: Agitation
[2017-09-10] MEDS: traMADol HCl 50 MG TAB PO PRN (17:19)
--- NOTE | 2017-09-10 18:50 | PRG ---
DATE OF SERVICE: 09/10/2017 SUBJECTIVE: Mr. Bennett has no new complaints. Dressing has been changed on all of his wounds by [facility] care team earlier today. He is in good spirits and is alert and appropriate. All issues of confus ion have resolved. PHYSICAL EXAMINATION: VITAL SIGNS: He is afebrile, pulse 71, blood pressure 163/69 CARDIAC: Regular rate and rhythm. LUNGS: Clear to auscultation. ABDOMEN: Benign. EXTREMITIES: Wounds were all covered with appropriate dressings on his lower extremities. ASSESSMENT: Patient with a bilateral lower leg ischemia and nonhealing/progressive wounds. PLAN: Bilateral above knee amputation tomorrow. He may have clear liquids after midnight and then b e n.p.o. after 8 o'clock.
[2017-09-11 04:18] LABS: #Eosinphils 0.1 thou/uL (0.0-0.7); #Lymphocytes 2.9 thou/uL (1.20-3.40); #Monocytes 0.8 thou/uL (0.11-0.59); %Basophils 0.2 % (0.0-1.0); %Eosinophils 1.2 % (0.0-10.0); %Lymphocytes 32.8 % (21.0-51.0); %Monocytes 8.7 % (0.0-10.0); %Neutrophils 57.1 % (42.0-75.0); Hemoglobin 9.7 g/dL (14.0-18.0); Mean Corpuscular HGB CONC 31.5 g/dL (32.0-36.0); Mean Corpuscular Hemoglobin 27.3 pg (27.0-31.0); Mean Corpuscular Volume 86.5 fl (80.0-94.0); Mean Platelet Volume 7.2 fL (7.4-10.4); Platelet Count 378 thou/uL (130-400); RBC Distribution Width 16.4 % (11.5-14.5); Red Blood Cell (RBC) Count 3.55 mill/uL (4.70-6.10); White Blood Cell (WBC) Count 8.8 thou/uL (4.8-10.8)
[2017-09-11 04:43] LABS: ALT (SGPT) 20 U/L (8-55); AST (SGOT) 14 U/L (5-34); Albumin 2.8 g/dL (3.4-4.8); Alkaline Phosphatase 83 U/L (40-150); Anion Gap 12 mmol/L (10-20); BUN (Urea Nitrogen) 21 mg/dL (8.4-25.7); Bilirubin, Total 0.3 mg/dL (0.2-1.2); Calc. Creatinine Clearance 89 mL/min (70-130); Calcium 8.6 mg/dL (7.8-10.44); Carbon Dioxide 25 mmol/L (23-31); Chloride 106 mmol/L (98-107); Estimated GFR-MDRD Greater than 90; Globulin 3.8 g/dL (2.4-3.5); Glucose 125 mg/dL (83-110); Potassium 4.2 mmol/L (3.5-5.1); Protein, Total 6.6 g/dL (5.8-8.1); Sodium 139 mmol/L (136-145)
[2017-09-11] MEDS: Carvedilol 6.25 MG TAB PO SCH ×2 (06:27→21:00)
[2017-09-11] MEDS: Glimepiride 2 MG TAB PO SCH ×2 (07:35→16:16)
[2017-09-11] MEDS: Pioglitazone HCl 15 MG TAB PO SCH (07:35)
[2017-09-11] MEDS: Docusate 100 MG CAP PO SCH ×2 (07:35→21:01)
[2017-09-11] MEDS: metFORMIN 500 MG TAB PO SCH ×2 (07:35→16:16)
[2017-09-11] MEDS: DULoxetine 60 MG CAP PO SCH (07:55)
[2017-09-11] MEDS: Atorvastatin Calcium 40 MG TAB PO SCH (07:55)
[2017-09-11] MEDS: HYDROcodone/Acetaminophen 7.5/325 mg Tablet PO PRN ×2 (07:55→10:16)
[2017-09-11] MEDS: Tamsulosin HCl 0.4 MG CAP PO SCH (07:55)
[2017-09-11] MEDS: Famotidine 20 MG TAB PO SCH ×2 (07:56→21:00)
[2017-09-11] MEDS: Morphine 4 MG/ML VIAL SLOW IVP PRN ×3 (08:00→22:01)
[2017-09-11] MEDS: MEROPENEM 1 GM/50 ML 1 GM in Premix Bag 1 BAG IVPB SCH ×3 (08:01→23:42)
[2017-09-11] MEDS: Fluconazole 100 MG TAB PO SCH (08:05)
[2017-09-11] MEDS ORDERED: PROPOFOL 200 MG/20 ML VIAL ONE (14:20)
[2017-09-11] MEDS ORDERED: ePHEDrine/0.9% NaCl/PF SYRINGE 50 mg/10 ml ONE (14:20)
[2017-09-11] MEDS ORDERED: Ondansetron HCl/PF 4 MG/2 ML Vial ONE ×2 (14:20→16:02)
[2017-09-11] MEDS ORDERED: Lidocaine 1% PF 5 ML VIAL ONE (14:20)
[2017-09-11] MEDS ORDERED: Morphine 4 MG/ML VIAL ONE (15:16)
[2017-09-11] MEDS ORDERED: Fentanyl 250 MCG/5 ML VIAL ONE (16:02)
[2017-09-11] MEDS ORDERED: Fentanyl 100 MCG/2 ML VIAL ONE ×3 (16:02→20:02)
[2017-09-11] MEDS ORDERED: Meperidine HCl/PF 25 MG/ML VIAL SLOW IVP PRN (19:52)
[2017-09-11] MEDS ORDERED: Promethazine HCl 25 MG/ML VIAL SLOW IVP PRN (19:52)
[2017-09-11] MEDS ORDERED: Promethazine HCl 25 MG/ML VIAL IM PRN (19:52)
[2017-09-11] MEDS ORDERED: Ondansetron HCl/PF 4 MG/2 ML Vial IVP PRN (19:52)
--- NOTE | 2017-09-11 20:12 | PDOC.PN ---
- Subjective Encounter Start Date: 09/11/17 Encounter Start Time: 11:00 Patient is seeen today, alert and oriented. He is waiting to go fo [facility] this afternoon. Pt has severe pain. - Objective Resuscitation Status: Resuscitation Status FULL:Full Resuscitation MAR Reviewed: Yes Vital Signs & Weight: Weight Admit Weight 138 lb 14.259 oz Weight 138 lb 14.259 oz I&O: 09/10/17 09/11/17 09/12/17 06:59 06:59 06:59 Intake Total 410 Output Total 1100 Balance -690 Result Diagrams: 09/11/17 03:34 09/11/17 03:34 Additional Labs: Accuchecks 09/11/17 09/11/17 09/10/17 11:46 04:58 19:32 POC Glucose 165 H 166 H 174 H Radiology Reviewed by me: Yes Dx/Plan (1) Sepsis affecting skin Code(s): A41.9 - SEPSIS, UNSPECIFIED ORGANISM Status: Acute Comment: resolving (2) CHF (congestive heart failure) Code(s): I50.9 - HEART FAILURE, UNSPECIFIED Status: Chronic Qualifiers: Qualified Code(s): I50.32 - Chronic diastolic (congestive) heart failure Comment: No exsacrbation noted. will d/c Fluids, (3) COPD (chronic obstructive pulmonary disease) Status: Chronic Qualifiers: COPD type: chronic bronchitis Chronic bronchitis type: unspecified Qualified Code(s): J42 - Unspecified chronic bronchitis Comment: No exacerbation, continue nebs prn (4) Diabetes type 2, uncontrolled Code(s): E11.65 - TYPE 2 DIABETES MELLITUS WITH HYPERGLYCEMIA Status: Chronic Comment: stable, continue SSI. 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 He is scheduled fir suregry today. (6) Hypertension Code(s): I10 - ESSENTIAL (PRIMARY) HYPERTENSION Status: Chronic Comment: stable. (7) Wound, open, abdominal wall, anterior Code(s): S31.109A - UNSP OPN WND ABD WALL, UNSP Q W/O PENET PERIT CAV, INIT Status: Chronic Comment: local care, wound care recommedations - Plan cont current plan of care, plan discussed w/ family, continue antibiotics, case management social worker, respiratory therapy, incentive spirometry, DVT proph w/SCDs * . - Discharge Day Encounter end time: 11:35 Review of Systems - Review of Systems Constitutional: negative: fever, chills, sweats, weakness, malaise, other Eyes: negative: Pain, Vision Change, Conjunctivae Inflammation, Eyelid Inflammation, Redness, Other ENT: negative: Ear Pain, Ear Discharge, Nose Pain, Nose Discharge, Nose Congestion, Mouth Pain, Mouth Swelling, Throat Pain, Throat Swelling, Other Respiratory: negative: Cough, Dry, Shortness of Breath, Hemoptysis, SOB with Excertion, Pleuritic Pain, Sputum, Wheezing Cardiovascular: negative: chest pain, palpitations, orthopnea, paroxysmal nocturnal dyspnea, edema, light headedness, other Gastrointestinal: negative: Nausea, Vomiting, Abdominal Pain, Diarrhea, Constipation, Melena, Hematochezia, Other Genitourinary: negative: Dysuria, Frequency, Incontinence, Hematuria, Retention , Other Musculoskeletal: negative: Neck Pain, Shoulder Pain, Arm Pain, Back Pain, Hand Pain, Leg Pain, Foot Pain, Other - Medications/Allergies Allergies/Adverse Reactions: Allergies Allergy/AdvReac Type Severity Reaction Status Date / Time No Known Drug Allergies Allergy Verified 09/01/17 14:52 Medications: Current Medications Acetaminophen (Tylenol) 650 mg PO Q4H PRN PRN Reason: Headache/Fever or Pain Last Admin: 09/06/17 15:41 Dose: 650 mg Hydrocodone Bitart/Acetaminophen ([place] 10/325) 1 tab PO Q4H PRN PRN Reason: PAIN SCALE 1-5 Hydrocodone Bitart/Acetaminophen ([place] 10/325) 2 tab PO Q4H PRN PRN Reason: PAIN SCALE 6-10 Albuterol/Ipratropium (Duoneb) 3 ml NEB Q4H PRN PRN Reason: SOB &/or Wheezing Atorvastatin Calcium (Lipitor) 40 mg PO DAILY [facility] Last Admin: 09/11/17 07:55 Dose: 40 mg Carvedilol (Coreg) 6.25 mg PO BID [facility] Last Admin: 09/11/17 06:27 Dose: 6.25 mg Dextrose/Water (Dextrose 50%) 25 gm SLOW IVP PRN PRN PRN Reason: Hypoglycemia Docusate Sodium (Colace) 100 mg PO BID [facility] Last Admin: 09/11/17 07:35 Dose: Not Given Duloxetine HCl (Cymbalta) 60 mg PO QAM [facility] Last Admin: 09/11/17 07:55 Dose: 60 mg Famotidine (Pepcid) 20 mg PO BID [facility] Last Admin: 09/11/17 07:56 Dose: 20 mg Fentanyl (Pacu-Sublimaze) 50 mcg SLOW IVP Q10MIN PRN PRN Reason: Moderate to Severe Pain (6-10) Stop: 09/11/17 22:53 Fluconazole (Diflucan) 100 mg PO 1300 [facility] Last Admin: 09/11/17 08:05 Dose: 100 mg Glimepiride (Amaryl) 2 mg PO BID-[facility] Last Admin: 09/11/17 16:16 Dose: Not Given Glucagon (Glucagon) 1 mg IM PRN PRN PRN Reason: Hypoglycemia Hydralazine HCl (Apresoline) 10 mg SLOW IVP Q4H PRN PRN Reason: SBP Greater Than 180 Last Admin: 09/05/17 02:29 Dose: 10 mg Dextrose/Water (D5w) 1,000 mls @ 0 mls/hr IV .Q0M PRN; As Directed PRN Reason: Hypoglycemia Meropenem 1 gm/ Device 50 mls @ 100 mls/hr IVPB 0800,1600,2359 [facility] Last Admin: 09/11/17 08:01 Dose: 50 mls Insulin Human Lispro (Humalog) 0 units SC .MODERATE SLIDING SC PRN PRN Reason: Moderate Correctional Scale Last Admin: 09/10/17 12:06 Dose: 2 unit Insulin Human Lispro (Humalog) 0 units SC .BEDTIME SLIDING SC PRN PRN Reason: Bedtime Correctional Scale Lactulose (Lactulose) 20 gm PO DAILYPRN PRN PRN Reason: Constipation Meperidine HCl (Pacu-Demerol) 12.5 mg SLOW IVP ONE PRN PRN Reason: Shivering Stop: 09/11/17 22:53 Metformin HCl (Glucophage) 500 mg PO BID-[facility] Last Admin: 09/11/17 16:16 Dose: Not Given Morphine Sulfate (Morphine) 2 mg SLOW IVP Q4H PRN PRN Reason: Chest Pain/BP Elevations Last Admin: 09/11/17 12:10 Dose: 2 mg Morphine Sulfate (Pacu-Morphine Sulfate) 4 mg SLOW IVP ONE PRN PRN Reason: Moderate to Severe Pain (6-10) Stop: 09/11/17 22:53 Ondansetron HCl (Zofran Odt) 4 mg PO Q6H PRN PRN Reason: Nausea/Vomiting Ondansetron HCl (Pacu-Zofran) 4 mg IVP ONE PRN PRN Reason: Nausea/Vomiting Stop: 09/11/17 22:53 Pioglitazone HCl (Actos) 30 mg PO DAILY [facility] Last Admin: 09/11/17 07:35 Dose: Not Given Promethazine HCl (Pacu-Phenergan) 6.25 mg SLOW IVP ONE PRN PRN Reason: Nausea/Vomiting Stop: 09/11/17 22:53 Promethazine HCl (Pacu-Phenergan) 6.25 mg IM ONE PRN PRN Reason: Nausea/Vomiting Stop: 09/11/17 22:53 Senna (Senokot) 2 tab PO HSPRN PRN PRN Reason: Constipation Sodium Chloride (Flush - Normal Saline) 10 ml IVF Q12HR [facility] Last Admin: 09/11/17 08:01 Dose: 10 ml Sodium Chloride (Flush - Normal Saline) 10 ml IVF PRN PRN PRN Reason: Saline Flush Last Admin: 09/09/17 23:36 Dose: 10 ml Tamsulosin HCl (Flomax) 0.4 mg PO DAILY [facility] Last Admin: 09/11/17 07:55 Dose: 0.4 mg Tramadol HCl (Ultram) 50 mg PO Q6H PRN PRN Reason: .BREAKTHROUGH PAIN Last Admin: 09/10/17 17:19 Dose: 50 mg Ziprasidone (Geodon) 20 mg IM Q12H PRN PRN Reason: Agitation
[2017-09-11] MEDS: HYDROcodone/Acetaminophen 10/325 mg Tablet PO PRN (21:00)
[2017-09-12] MEDS: HYDROcodone/Acetaminophen 10/325 mg Tablet PO PRN ×5 (00:21→20:46)
[2017-09-12] MEDS: Morphine 4 MG/ML VIAL SLOW IVP PRN ×2 (01:48→09:34)
[2017-09-12] MEDS ORDERED: Morphine 4 MG/ML VIAL SLOW IVP SCH (03:15)
[2017-09-12] MEDS: HumaLOG 300 UNITS/3 ML VIAL SC PRN ×3 (06:35→20:51)
[2017-09-12] MEDS: DULoxetine 60 MG CAP PO SCH (08:38)
[2017-09-12] MEDS: Pioglitazone HCl 15 MG TAB PO SCH (08:38)
[2017-09-12] MEDS: Atorvastatin Calcium 40 MG TAB PO SCH (08:38)
[2017-09-12] MEDS: metFORMIN 500 MG TAB PO SCH ×2 (08:38→17:11)
[2017-09-12] MEDS: Glimepiride 2 MG TAB PO SCH ×2 (08:38→17:11)
[2017-09-12] MEDS: Carvedilol 6.25 MG TAB PO SCH ×2 (08:39→20:46)
[2017-09-12] MEDS: Famotidine 20 MG TAB PO SCH ×2 (08:40→20:46)
[2017-09-12] MEDS: Tamsulosin HCl 0.4 MG CAP PO SCH (08:40)
[2017-09-12] MEDS: Docusate 100 MG CAP PO SCH ×2 (08:40→20:48)
[2017-09-12] MEDS: MEROPENEM 1 GM/50 ML 1 GM in Premix Bag 1 BAG IVPB SCH ×3 (08:45→23:40)
[2017-09-12] MEDS ORDERED: Morphine 4 MG/ML VIAL IV PRN (10:20)
[2017-09-12] MEDS ORDERED: Promethazine HCl 25 MG/ML VIAL SLOW IVP SCH (10:45)
[2017-09-12] MEDS ORDERED: Meperidine HCl/PF 25 MG/ML VIAL SLOW IVP SCH (10:45)
[2017-09-12] MEDS: Fluconazole 100 MG TAB PO SCH (12:49)
[2017-09-12] MEDS: Ketorolac Tromethamine 30 MG/ML VIAL IVP SCH ×3 (12:50→23:40)
[2017-09-12] MEDS: Morphine 4 MG/ML VIAL IV PRN ×2 (13:43→18:18)
[2017-09-12 15:00] LABS: #Eosinphils 0.1 thou/uL (0.0-0.7); #Lymphocytes 1.6 thou/uL (1.20-3.40); #Neutrophils 11.2 thou/uL (1.40-6.50); %Basophils 0.1 % (0.0-1.0); %Eosinophils 0.9 % (0.0-10.0); %Lymphocytes 11.1 % (21.0-51.0); %Monocytes 7.4 % (0.0-10.0); %Neutrophils 80.4 % (42.0-75.0); Hemoglobin 8.8 g/dL (14.0-18.0); Mean Corpuscular HGB CONC 31.6 g/dL (32.0-36.0); Mean Corpuscular Hemoglobin 27.3 pg (27.0-31.0); Mean Corpuscular Volume 86.4 fl (80.0-94.0); Mean Platelet Volume 6.9 fL (7.4-10.4); Platelet Count 383 thou/uL (130-400); RBC Distribution Width 16.1 % (11.5-14.5); Red Blood Cell (RBC) Count 3.21 mill/uL (4.70-6.10); White Blood Cell (WBC) Count 13.9 thou/uL (4.8-10.8)
--- NOTE | 2017-09-12 19:57 | PDOC.PN ---
- Subjective Encounter Start Date: 09/12/17 Encounter Start Time: 14:00 PAtient is seen today, very drowsy with pain medications on Morphine. Pt had AKA for gangrene foot. - Objective Resuscitation Status: Resuscitation Status FULL:Full Resuscitation MAR Reviewed: Yes Vital Signs & Weight: Vital Signs (12 hours) Temp Pulse Pulse Pulse Resp BP BP 09/12/17 16:13 97.6 F 75 20 120/57 L 09/12/17 14:00 74 73 09/12/17 11:23 97.7 F 73 18 122/66 09/12/17 10:53 97.8 F 74 18 119/65 09/12/17 08:39 151/74 H 09/12/17 08:00 97.6 F 75 18 Pulse Ox Pulse Ox Pulse Ox 09/12/17 16:13 92 L 09/12/17 14:00 97 93 L 09/12/17 11:23 94 L 09/12/17 10:53 92 L 09/12/17 08:39 09/12/17 08:00 98 Weight Admit Weight 138 lb 14.259 oz Weight 138 lb 14.259 oz I&O: 09/11/17 09/12/17 09/13/17 06:59 06:59 06:59 Intake Total 410 340 Output Total 1100 400 Balance -690 -60 Result Diagrams: 09/12/17 14:25 09/11/17 03:34 Additional Labs: Accuchecks 09/12/17 09/12/17 09/12/17 16:15 11:27 05:11 POC Glucose 147 H 229 H 278 H 09/11/17 20:20 POC Glucose 145 H Radiology Reviewed by me: Yes EKG Reviewed by me: Yes Phys Exam - Physical Examination HEENT: PERRLA, moist MMs Neck: no nodes, no JVD Respiratory: no wheezing, no rales Cardiovascular: no significant murmur Gastrointestinal: soft, non-tender Musculoskeletal: no edema Psychiatric: normal affect Skin: no rash Dx/Plan (1) Sepsis affecting skin Code(s): A41.9 - SEPSIS, UNSPECIFIED ORGANISM Status: Acute Comment: resolving (2) CHF (congestive heart failure) Code(s): I50.9 - HEART FAILURE, UNSPECIFIED Status: Chronic Qualifiers: Qualified Code(s): I50.32 - Chronic diastolic (congestive) heart failure Comment: No exsacrbation noted. will d/c Fluids, (3) COPD (chronic obstructive pulmonary disease) Status: Chronic Qualifiers: COPD type: chronic bronchitis Chronic bronchitis type: unspecified Qualified Code(s): J42 - Unspecified chronic bronchitis Comment: No exacerbation, continue nebs prn (4) Diabetes type 2, uncontrolled Code(s): E11.65 - TYPE 2 DIABETES MELLITUS WITH HYPERGLYCEMIA Status: Chronic Comment: stable, continue SSI. (5) Gangrenous toe Code(s): I96 - GANGRENE, NOT ELSEWHERE CLASSIFIED Status: Chronic Comment: Pt had AKA bilatsrally, worseing pain today, will do Morphine 3 mg IV q 3 hr. (6) Hypertension Code(s): I10 - ESSENTIAL (PRIMARY) HYPERTENSION Status: Chronic Comment: stable. (7) Wound, open, abdominal wall, anterior Code(s): S31.109A - UNSP OPN WND ABD WALL, UNSP Q W/O PENET PERIT CAV, INIT Status: Chronic Comment: local care, wound care recommedations - Plan cont current plan of care, hanna catheter, respiratory therapy, DVT proph w/SCDs * . - Discharge Day Encounter end time: 14:35 Review of Systems - Review of Systems Constitutional: weakness ENT: negative: Ear Pain, Ear Discharge, Nose Pain, Nose Discharge, Nose Congestion, Mouth Pain, Mouth Swelling, Throat Pain, Throat Swelling, Other Respiratory: negative: Cough, Dry, Shortness of Breath, Hemoptysis, SOB with Excertion, Pleuritic Pain, Sputum, Wheezing Cardiovascular: negative: chest pain, palpitations, orthopnea, paroxysmal nocturnal dyspnea, edema, light headedness, other Gastrointestinal: negative: Nausea, Vomiting, Abdominal Pain, Diarrhea, Constipation, Melena, Hematochezia, Other Musculoskeletal: negative: Neck Pain, Shoulder Pain, Arm Pain, Back Pain, Hand Pain, Leg Pain, Foot Pain, Other Skin: negative: Rash, Lesions, Amish, Bruising, Other - Medications/Allergies Allergies/Adverse Reactions: Allergies Allergy/AdvReac Type Severity Reaction Status Date / Time No Known Drug Allergies Allergy Verified 09/01/17 14:52 Medications: Current Medications Acetaminophen (Tylenol) 650 mg PO Q4H PRN PRN Reason: Headache/Fever or Pain Last Admin: 09/06/17 15:41 Dose: 650 mg Hydrocodone Bitart/Acetaminophen ([place] 10/325) 1 tab PO Q4H PRN PRN Reason: PAIN SCALE 1-5 Hydrocodone Bitart/Acetaminophen ([place]ley 10/325) 2 tab PO Q4H PRN PRN Reason: PAIN SCALE 6-10 Last Admin: 09/12/17 15:30 Dose: 2 tab Albuterol/Ipratropium (Duoneb) 3 ml NEB Q4H PRN PRN Reason: SOB &/or Wheezing Atorvastatin Calcium (Lipitor) 40 mg PO DAILY COUNT INCLUDES [facility] Last Admin: 09/12/17 08:38 Dose: 40 mg Carvedilol (Coreg) 6.25 mg PO BID COUNT INCLUDES THE [facility] Last Admin: 09/12/17 08:39 Dose: 6.25 mg Dextrose/Water (Dextrose 50%) 25 gm SLOW IVP PRN PRN PRN Reason: Hypoglycemia Docusate Sodium (Colace) 100 mg PO BID COUNT INCLUDES THE [facility] Last Admin: 09/12/17 08:40 Dose: 100 mg Duloxetine HCl (Cymbalta) 60 mg PO QAM COUNT INCLUDES THE [facility] Last Admin: 09/12/17 08:38 Dose: 60 mg Famotidine (Pepcid) 20 mg PO BID COUNT INCLUDES THE [facility] Last Admin: 09/12/17 08:40 Dose: 20 mg Glimepiride (Amaryl) 2 mg PO BID-[facility] Last Admin: 09/12/17 17:11 Dose: 2 mg Glucagon (Glucagon) 1 mg IM PRN PRN PRN Reason: Hypoglycemia Hydralazine HCl (Apresoline) 10 mg SLOW IVP Q4H PRN PRN Reason: SBP Greater Than 180 Last Admin: 09/05/17 02:29 Dose: 10 mg Dextrose/Water (D5w) 1,000 mls @ 0 mls/hr IV .Q0M PRN; As Directed PRN Reason: Hypoglycemia Meropenem 1 gm/ Device 50 mls @ 100 mls/hr IVPB 0800,1600,2359 COUNT INCLUDES THE [facility] Last Admin: 09/12/17 17:11 Dose: 50 mls Insulin Human Lispro (Humalog) 0 units SC .MODERATE SLIDING SC PRN PRN Reason: Moderate Correctional Scale Last Admin: 09/12/17 12:57 Dose: 4 unit Insulin Human Lispro (Humalog) 0 units SC .BEDTIME SLIDING SC PRN PRN Reason: Bedtime Correctional Scale Ketorolac Tromethamine (Toradol) 15 mg IVP Q6HR COUNT INCLUDES THE [facility] Stop: 09/17/17 12:01 Last Admin: 09/12/17 17:07 Dose: 15 mg Lactulose (Lactulose) 20 gm PO DAILYPRN PRN PRN Reason: Constipation Metformin HCl (Glucophage) 500 mg PO BID-[facility] Last Admin: 09/12/17 17:11 Dose: 500 mg Morphine Sulfate (Morphine) 3 mg IV Q4H PRN PRN Reason: Pain Morphine Sulfate (Morphine) 4 mg IV Q2H PRN PRN Reason: Pain Last Admin: 09/12/17 18:18 Dose: 4 mg Ondansetron HCl (Zofran Odt) 4 mg PO Q6H PRN PRN Reason: Nausea/Vomiting Pioglitazone HCl (Actos) 30 mg PO DAILY COUNT INCLUDES [facility] Last Admin: 09/12/17 08:38 Dose: 30 mg Senna (Senokot) 2 tab PO HSPRN PRN PRN Reason: Constipation Sodium Chloride (Flush - Normal Saline) 10 ml IVF Q12HR COUNT INCLUDES THE [facility] Last Admin: 09/12/17 08:40 Dose: 10 ml Sodium Chloride (Flush - Normal Saline) 10 ml IVF PRN PRN PRN Reason: Saline Flush Last Admin: 09/09/17 23:36 Dose: 10 ml Tamsulosin HCl (Flomax) 0.4 mg PO DAILY COUNT INCLUDES [facility] Last Admin: 09/12/17 08:40 Dose: 0.4 mg Ziprasidone (Geodon) 20 mg IM Q12H PRN PRN Reason: Agitation
--- NOTE | 2017-09-12 21:01 | PRG ---
DATE OF SERVICE: 09/12/2017 SUBJECTIVE: Mr. Bennett is postoperative day #1 from a bilateral above knee amputation. He is in surp risingly good spirits. He notes occasional shooting pains in both legs. In general, however, he has limited discomfort. PHYSICAL EXAMINATION: VITAL SIGNS: He is afebrile, pulse is 75, blood pressure 120/57. Examination is without change. EXTREMITIES: Dressings are intact on bilateral lower extremities. LABORATORY STUDIES: His hemoglobin is 8.8 down from 9.7 yesterday. White blood cell count is 13.9. Sugar levels remain elevated in general from 147 to 278. ASSESSMENT AND PLAN: The patient is doing well after bilateral above knee amputation. I would plan to leave his compressive dressings intact until postoperative day #3, at which point I will inspect t he wounds. If they appear to be making satisfactory progress then I believe it would be appropriate at that time to discontinue his intravenous antibiotics and transfer him to a rehabilitation facility .
[2017-09-13] MEDS: Ketorolac Tromethamine 30 MG/ML VIAL IVP SCH ×4 (06:03→23:16)
[2017-09-13] MEDS: MEROPENEM 1 GM/50 ML 1 GM in Premix Bag 1 BAG IVPB SCH ×3 (07:52→23:17)
[2017-09-13] MEDS: DULoxetine 60 MG CAP PO SCH (07:55)
[2017-09-13] MEDS: Pioglitazone HCl 15 MG TAB PO SCH (07:55)
[2017-09-13] MEDS: Famotidine 20 MG TAB PO SCH ×2 (07:55→20:58)
[2017-09-13] MEDS: Atorvastatin Calcium 40 MG TAB PO SCH (07:55)
[2017-09-13] MEDS: Docusate 100 MG CAP PO SCH ×2 (07:55→20:58)
[2017-09-13] MEDS: Carvedilol 6.25 MG TAB PO SCH ×2 (07:56→20:58)
[2017-09-13] MEDS: Tamsulosin HCl 0.4 MG CAP PO SCH (07:56)
[2017-09-13] MEDS: Glimepiride 2 MG TAB PO SCH ×2 (07:56→17:42)
[2017-09-13] MEDS: metFORMIN 500 MG TAB PO SCH ×2 (07:56→17:41)
[2017-09-13] MEDS: HYDROcodone/Acetaminophen 10/325 mg Tablet PO PRN ×2 (07:57→15:52)
[2017-09-13 12:11] LABS: #Eosinphils 0.1 thou/uL (0.0-0.7); #Lymphocytes 1.9 thou/uL (1.20-3.40); #Monocytes 0.8 thou/uL (0.11-0.59); %Basophils 0.2 % (0.0-1.0); %Eosinophils 0.7 % (0.0-10.0); %Monocytes 6.5 % (0.0-10.0); %Neutrophils 77.6 % (42.0-75.0); Hemoglobin 8.7 g/dL (14.0-18.0); Mean Corpuscular HGB CONC 30.9 g/dL (32.0-36.0); Mean Corpuscular Hemoglobin 27.3 pg (27.0-31.0); Mean Corpuscular Volume 88.5 fl (80.0-94.0); Mean Platelet Volume 7.3 fL (7.4-10.4); Platelet Count 392 thou/uL (130-400); RBC Distribution Width 16.1 % (11.5-14.5); Red Blood Cell (RBC) Count 3.18 mill/uL (4.70-6.10); White Blood Cell (WBC) Count 12.9 thou/uL (4.8-10.8)
[2017-09-13] MEDS: HumaLOG 300 UNITS/3 ML VIAL SC PRN ×2 (12:27→20:58)
[2017-09-13 12:30] LABS: Anion Gap 11 mmol/L (10-20); BUN (Urea Nitrogen) 20 mg/dL (8.4-25.7); Calc. Creatinine Clearance 76 mL/min (70-130); Calcium 8.6 mg/dL (7.8-10.44); Carbon Dioxide 27 mmol/L (23-31); Chloride 104 mmol/L (98-107); Estimated GFR-MDRD Greater than 90; Glucose 245 mg/dL (83-110); Potassium 4.1 mmol/L (3.5-5.1); Sodium 138 mmol/L (136-145)
--- NOTE | 2017-09-13 15:13 | PDOC.PN ---
- Subjective Encounter Start Date: 09/13/17 Encounter Start Time: 12:00 Patient seen today more Alert and orientation is off, he asking if he can shower on the Bed. pain is well controlled. - Objective Resuscitation Status: Resuscitation Status FULL:Full Resuscitation MAR Reviewed: Yes Vital Signs & Weight: Vital Signs (12 hours) Temp Pulse Resp BP BP Pulse Ox 09/13/17 11:30 98.4 F 66 16 111/65 96 09/13/17 08:00 98.4 F 72 18 94 L 09/13/17 07:56 105/64 09/13/17 07:54 98.4 F 72 18 105/64 94 L Weight Admit Weight 138 lb 14.259 oz Weight 138 lb 14.259 oz I&O: 09/12/17 09/13/17 09/14/17 06:59 06:59 06:59 Intake Total 340 Output Total 400 Balance -60 Result Diagrams: 09/13/17 11:50 09/13/17 11:50 Additional Labs: Accuchecks 09/13/17 09/13/17 09/12/17 11:31 06:14 20:52 POC Glucose 274 H 162 H 232 H 09/12/17 09/12/17 16:15 11:27 POC Glucose 147 H 229 H Radiology Reviewed by me: Yes Phys Exam - Physical Examination HEENT: PERRLA, moist MMs Neck: no nodes, no JVD Respiratory: no wheezing, no rales Cardiovascular: RRR, no significant murmur Gastrointestinal: soft, non-tender AKA, no bleeding from surgery site. Neurological: non-focal Dx/Plan (1) Sepsis affecting skin Code(s): A41.9 - SEPSIS, UNSPECIFIED ORGANISM Status: Acute Comment: Will repeat Blood Cultures due to elvated WBC. plan is to view the wounds tomorow by surgery, if looks ok will d/c ABx (2) CHF (congestive heart failure) Code(s): I50.9 - HEART FAILURE, UNSPECIFIED Status: Chronic Qualifiers: Qualified Code(s): I50.32 - Chronic diastolic (congestive) heart failure Comment: No exsacrbation noted. will d/c Fluids, (3) COPD (chronic obstructive pulmonary disease) Status: Chronic Qualifiers: COPD type: chronic bronchitis Chronic bronchitis type: unspecified Qualified Code(s): J42 - Unspecified chronic bronchitis Comment: No exacerbation, continue nebs prn (4) Diabetes type 2, uncontrolled Code(s): E11.65 - TYPE 2 DIABETES MELLITUS WITH HYPERGLYCEMIA Status: Chronic Comment: stable, continue SSI. (5) Gangrenous toe Code(s): I96 - GANGRENE, NOT ELSEWHERE CLASSIFIED Status: Chronic Comment: Pt had AKA bilatsrally, Pain improved with Morphine. (6) Hypertension Code(s): I10 - ESSENTIAL (PRIMARY) HYPERTENSION Status: Chronic Comment: stable. (7) Wound, open, abdominal wall, anterior Code(s): S31.109A - UNSP OPN WND ABD WALL, UNSP Q W/O PENET PERIT CAV, INIT Status: Chronic Comment: local care, wound care recommedations - Plan cont current plan of care, continue antibiotics, social service liaison, respiratory therapy, incentive spirometry, DVT proph w/lovenox * . - Discharge Day Encounter end time: 13:35 Review of Systems - Review of Systems Respiratory: negative: Cough, Dry, Shortness of Breath, Hemoptysis, SOB with Excertion, Pleuritic Pain, Sputum, Wheezing Cardiovascular: negative: chest pain, palpitations, orthopnea, paroxysmal nocturnal dyspnea, edema, light headedness, other Gastrointestinal: negative: Nausea, Vomiting, Abdominal Pain, Diarrhea, Constipation, Melena, Hematochezia, Other Skin: negative: Rash, Lesions, Amish, Bruising, Other - Medications/Allergies Allergies/Adverse Reactions: Allergies Allergy/AdvReac Type Severity Reaction Status Date / Time No Known Drug Allergies Allergy Verified 09/01/17 14:52 Medications: Current Medications Acetaminophen (Tylenol) 650 mg PO Q4H PRN PRN Reason: Headache/Fever or Pain Last Admin: 09/06/17 15:41 Dose: 650 mg Hydrocodone Bitart/Acetaminophen ([place] 10/325) 1 tab PO Q4H PRN PRN Reason: PAIN SCALE 1-5 Last Admin: 09/13/17 07:57 Dose: 1 tab Hydrocodone Bitart/Acetaminophen ([place] 10/325) 2 tab PO Q4H PRN PRN Reason: PAIN SCALE 6-10 Last Admin: 09/12/17 20:46 Dose: 2 tab Albuterol/Ipratropium (Duoneb) 3 ml NEB Q4H PRN PRN Reason: SOB &/or Wheezing Atorvastatin Calcium (Lipitor) 40 mg PO DAILY [facility] Last Admin: 09/13/17 07:55 Dose: 40 mg Carvedilol (Coreg) 6.25 mg PO BID [facility] Last Admin: 09/13/17 07:56 Dose: 6.25 mg Dextrose/Water (Dextrose 50%) 25 gm SLOW IVP PRN PRN PRN Reason: Hypoglycemia Docusate Sodium (Colace) 100 mg PO BID [facility] Last Admin: 09/13/17 07:55 Dose: 100 mg Duloxetine HCl (Cymbalta) 60 mg PO QAM [facility] Last Admin: 09/13/17 07:55 Dose: 60 mg Famotidine (Pepcid) 20 mg PO BID [facility] Last Admin: 09/13/17 07:55 Dose: 20 mg Glimepiride (Amaryl) 2 mg PO BID-[facility] Last Admin: 09/13/17 07:56 Dose: 2 mg Glucagon (Glucagon) 1 mg IM PRN PRN PRN Reason: Hypoglycemia Hydralazine HCl (Apresoline) 10 mg SLOW IVP Q4H PRN PRN Reason: SBP Greater Than 180 Last Admin: 09/05/17 02:29 Dose: 10 mg Dextrose/Water (D5w) 1,000 mls @ 0 mls/hr IV .Q0M PRN; As Directed PRN Reason: Hypoglycemia Meropenem 1 gm/ Device 50 mls @ 100 mls/hr IVPB 0800,1600,2359 [facility] Last Admin: 09/13/17 07:52 Dose: 50 mls Insulin Human Lispro (Humalog) 0 units SC .MODERATE SLIDING SC PRN PRN Reason: Moderate Correctional Scale Last Admin: 09/13/17 12:27 Dose: 6 unit Insulin Human Lispro (Humalog) 0 units SC .BEDTIME SLIDING SC PRN PRN Reason: Bedtime Correctional Scale Last Admin: 09/12/17 20:51 Dose: 2 unit Ketorolac Tromethamine (Toradol) 15 mg IVP Q6HR [facility] Stop: 09/17/17 12:01 Last Admin: 09/13/17 12:04 Dose: 15 mg Lactulose (Lactulose) 20 gm PO DAILYPRN PRN PRN Reason: Constipation Metformin HCl (Glucophage) 500 mg PO BID-[facility] Last Admin: 09/13/17 07:56 Dose: 500 mg Morphine Sulfate (Morphine) 3 mg IV Q4H PRN PRN Reason: Pain Morphine Sulfate (Morphine) 4 mg IV Q2H PRN PRN Reason: Pain Last Admin: 09/12/17 18:18 Dose: 4 mg Ondansetron HCl (Zofran Odt) 4 mg PO Q6H PRN PRN Reason: Nausea/Vomiting Pioglitazone HCl (Actos) 30 mg PO DAILY [facility] Last Admin: 09/13/17 07:55 Dose: 30 mg Senna (Senokot) 2 tab PO HSPRN PRN PRN Reason: Constipation Sodium Chloride (Flush - Normal Saline) 10 ml IVF Q12HR [facility] Last Admin: 09/13/17 07:57 Dose: 10 ml Sodium Chloride (Flush - Normal Saline) 10 ml IVF PRN PRN PRN Reason: Saline Flush Last Admin: 09/09/17 23:36 Dose: 10 ml Tamsulosin HCl (Flomax) 0.4 mg PO DAILY [facility] Last Admin: 09/13/17 07:56 Dose: 0.4 mg Ziprasidone (Geodon) 20 mg IM Q12H PRN PRN Reason: Agitation
--- NOTE | 2017-09-14 01:53 | PRG ---
DATE OF SERVICE: 09/13/2017 SUBJECTIVE: Mr. Bennett is postoperative day #2 following bilateral above knee amputations. He compla ins of appropriate postoperative pain and notes that it is getting better. He has better range of mo tion in his hips and his legs are not sticking up in the air as it would at the first postoperative d ay. OBJECTIVE: VITAL SIGNS: He is afebrile, pulse 67, blood pressure 113/66. LUNGS: Clear to auscultation. ABDOMEN: His bilateral amputation sites are healing appropriately. There are some minimal edema at both stump incision lines, but not significant. Benny wrap compression dressings were reapplied. ASSESSMENT AND PLAN: In summary, he is doing well following bilateral above knee amputation for kenya re ischemic disease of his bilateral lower legs. He is stable from my standpoint and cleared to [facility] to a rehab facility for additional conditioning and strengthening, so he may transfer safely. Romain nel has been on intravenous antibiotics with meropenem since his admission and this does not need to be continued at this time. The infectious material was removed. He still has a sacral decubitus ulcer and an abdominal wound and these both still require wound care. I will see him back in 2 weeks in my office for staple removal. I have recommended bilateral stump shrinkers that can certainly be placed over the rehabilitation facility.
[2017-09-14] MEDS: Ketorolac Tromethamine 30 MG/ML VIAL IVP SCH ×2 (05:07→11:33)
[2017-09-14] MEDS: HumaLOG 300 UNITS/3 ML VIAL SC PRN ×2 (05:08→11:38)
--- NOTE | 2017-09-14 07:52 | OP ---
DATE OF PROCEDURE: 09/11/2017 PREOPERATIVE DIAGNOSES: Bilateral lower extremity gangrene, chronically deteriorating wounds and sami n secondary to severe ischemia. POSTOPERATIVE DIAGNOSES: Bilateral lower extremity gangrene, chronically deteriorating wounds and pa in secondary to severe ischemia. OPERATION PERFORMED: Bilateral above knee amputation. SURGEON: Solitario Mcallister M.D. ANESTHESIA: General endotracheal. INDICATIONS: The patient is a 72-year-old white male with multiple medical problems. He currently h as obvious dry gangrene of all the toes on one of his feet and the great toe was completely gangrenou s on the other foot. Additionally, he has gangrenous heel ulcers. He also has painful ischemic woun ds on the lateral aspect of both lower legs. He has severe peripheral arterial disease secondary to combination of diabetes and heavy tobacco abuse. After a lengthy period of time of attempting to shelley at these wounds, he is taken to the operating room at this time for a bilateral above knee amputation . DESCRIPTION OF PROCEDURE: Informed consent was obtained. The patient was taken to the operating chano m where general anesthesia obtained with the patient in supine position. Bilateral legs were prepped with Betadine and draped in sterile fashion. Occlusive drapes were placed over the lower legs bilat erally and the legs were exsanguinated with Coban. Attention was turned first to the right leg. A f lucille mouth incision was fashioned on the distal thigh. Dissection was carried through skin and subcut aneous tissue. The fascia and muscle underneath were divided in line with the cutaneous incision. D issection was carried down to the femur on the anterior aspect, which was cleared with periosteal shruti vator several centimeters proximally. At this level, it was divided with the Gigli saw. The vascula r bundle was then identified just deep to the femur, which was divided between clamps and 2-0 silk ti es. The posterior flap was then completed with the Latisha amputation knife and the amputated leg was passed off the field. The sciatic nerve was identified, distracted, ligated and divided. Hemostasi s was meticulously achieved within the wound using a combination of electrocautery and suture ligatur es. The wound was irrigated with saline. On the right side, there was bleeding from within the pardeep ow space and therefore bone wax was placed. The deep fascia was approximated over the end of the fem ur, which was rasped smooth with the double ended rasp. The superficial fascia was then approximated between the anterior and posterior flaps with a series of interrupted sutures of 2-0 Vicryl. Subcut aneous tissue was approximated with a running suture of 3-0 Vicryl and the skin edges with skin stapl es. A mirror image incision and operation was performed on the left leg. There were no unusual findings on either side. Bone wax was not necessary on the left. When the skin edges of both legs were nicel y approximated, dressings were applied by placing Xeroform gauze followed by fluffed gauze, Kerlix ro ll, and 6-inch Benny wrap, which was held in place with tape. There were no complications. Patient to lerated the procedure well and there was never any excessive blood loss. He was taken to the recover y room in stable condition.
[2017-09-14] MEDS: DULoxetine 60 MG CAP PO SCH (08:31)
[2017-09-14] MEDS: Atorvastatin Calcium 40 MG TAB PO SCH (08:31)
[2017-09-14] MEDS: Famotidine 20 MG TAB PO SCH (08:31)
[2017-09-14] MEDS: Carvedilol 6.25 MG TAB PO SCH (08:32)
[2017-09-14] MEDS: Tamsulosin HCl 0.4 MG CAP PO SCH (08:32)
[2017-09-14] MEDS: metFORMIN 500 MG TAB PO SCH (08:33)
[2017-09-14] MEDS: Docusate 100 MG CAP PO SCH (08:33)
[2017-09-14] MEDS: Pioglitazone HCl 15 MG TAB PO SCH (08:34)
[2017-09-14] MEDS: Glimepiride 2 MG TAB PO SCH (08:34)
[2017-09-14] MEDS: HYDROcodone/Acetaminophen 10/325 mg Tablet PO PRN ×3 (08:39→15:10)
[2017-09-14] MEDS: MEROPENEM 1 GM/50 ML 1 GM in Premix Bag 1 BAG IVPB SCH ×2 (08:40→16:03)
--- NOTE | 2017-09-14 13:57 | DIS ---
DATE OF ADMISSION: 09/01/2017 DATE OF DISCHARGE: 09/14/2017 ADMITTING DIAGNOSIS: Bilateral toe gangrene infection. DISCHARGE DIAGNOSIS: Bilateral toe gangrene cellulitis status post above knee amputation. SECONDARY DIAGNOSES: 1. Recurrent metabolic encephalopathy. 2. Chronic diastolic heart failure. 3. Type 2 diabetes mellitus. CONSULTANTS INVOLVED IN THE CARE: Dr. Mcallister and Dr. Mcdonough from Infectious Disease. PROCEDURES DURING THIS ADMISSION: Above knee amputation in both the legs for gangrenous toes. HISTORY OF PRESENT ILLNESS AND HOSPITAL COURSE: In brief, this is a 72-year-old white male who has b een on recurrent admissions secondary to persistent gangrene of the lower extremities growing Pseudom onas. Sensitive only to Pseudomonas. Patient failed outpatient therapy or he could not buy the medi cations prescribed by Infectious Disease or he could not go for IV infusion therapy because of his la ck of funds. The patient was admitted as the infection was getting worse and started on IV antibioti cs. Dr. Watson was consulted and he again reiterated the recommendation that the patient would benef it from above knee amputation as infection was getting worse. The patient was in lot of pain and was on IV narcotics during this admission. Following amputation, his pain has resolved and there is no sign of infection. The patient was closely monitored following amputation and no evidence of depress ion or any low moods were noted. The patient was discharged to rehab facility for further physical t herapy and deconditioning. PHYSICAL EXAMINATION: On date of discharge: VITAL SIGNS: Blood pressures are 146/73, heart rate is 72, respiration is 18, saturating 94%. HEENT: Atraumatic, normocephalic. CARDIOVASCULAR: S1, S2 normal. No murmurs, rubs or gallops. LUNGS: Bilateral air entry was equal. No wheezing, no crackles. ABDOMEN: Soft, nontender, no guarding, no rebound tenderness. MUSCULOSKELETAL: The patient has bilateral above knee amputation both the legs. No evidence of any bleeding was noted from the amputated wounds. No signs of infection noted. Repeat blood cultures we re done. No evidence of any growth was noted. DISCHARGE MEDICATIONS: Famotidine 20 mg p.o. b.i.d., hydrocodone, Lasix 40 mg p.o. daily, metformin 1000 mg p.o. b.i.d., atorvastatin 40 mg p.o. daily, baclofen 20 mg p.o. t.i.d., Coreg 6.25 mg p.o. b. i.d., duloxetine 60 mg p.o. in the morning, glimepiride 2 mg p.o. b.i.d., ipratropium, albuterol sulf ate 3 mL nebulizer q.4 hours, pioglitazone 30 mg p.o. daily, tamsulosin 0.4 mg p.o. daily. DISCHARGE INSTRUCTIONS: 1. Continue activity as tolerated. The patient is being discharged to inpatient rehabilitation. Co ntinue with diabetic diet. 2. Continue activity as tolerated. 3. Follow up with primary care physician in 1-2 weeks. I spent 35 minutes with this patient on the day of discharge.
[2017-09-14] MEDS: Morphine 4 MG/ML VIAL IV PRN (15:10)
[2017-09-14 16:20] VITALS: BP 112/45; TEMP 98.4
--- NOTE | 2017-09-17 07:36 | PQF ---
[facility]ARDAD[facility]ADE[id number] [id number] CLINICAL DOCUMENTATION CLARIFICATION FORM: POST DISCHARGE Addendum to original discharge summary date: 09/14/2017 DATE: 09/17/2017 ATTN: Dr. Branch Please exercise your independent, professional judgment in responding to the clarification form. Clinical indicators are provided on the bottom of this form for your review Please check appropriate box(s): ____x___ I (concur) with the Wound Care findings as stated below. [ x ] Pressure Ulcer: (Stage I: Erythema; Stage II: Partial thickness; Stage III : Full thickness; Stage IV: Necrosis to muscle/bone) [ x] Location: Sacrum/Coccyx POA: [ x] Yes [ ] No[ ] Unable to determine Stage (I to IV): ___111____ (Left Right Bilateral N/A__x___) [ x ] Location: ___Sacrum/Coccyx POA: [ x] Yes [ ] No[ ] Unable to determine Stage (I to IV): (Left Right Bilateral N/A ) [ ] Location: POA: [ ] Yes [ ] No[ ] Unable to determine Stage (I to IV): (Left Right Bilateral N/A ) [ ] Gangrene present [ ] Yes [ ] ischemic gangrene [ ] gas gangrene [ ] No [ ] No pressure ulcer diagnosis [ ] Deep tissue injury [ ] Other diagnosis [ ] Unable to determine In addition, please specify: Present on Admission (POA): [x ) yes [ ] No [ ] Unable to determine For continuity of documentation, please document condition throughout progress notes and discharge summary. Thank You. CLINICAL INDICATORS - SIGNS / SYMPTOMS / LABS Per wound care: Pressure Ulcer. Stage III. Full thickness. Right sacrum/ buttock/coccyx. RISK FACTORS: Per H&P: PVD with gangrene/cellulitis of bilateral extremities. TREATMENTS: Wound care consult Specialty mattress--Low Air Loss Mattress. Per 09/02 wound care note: Has tunneled area at 12 o'clock. Tunnel packed with Promogran and wound bed covered with Promogran. Covered with Composite. Per 09/13 wound care note: Dressing changed. Encouraged to stay off back as much as possible, distal wound noted to be enlarging. (This form is maintained as a part of the permanent medical record) 2015 [employer] All Rights Reserved Crystal [email or web address] [phone] MARIA DEL CARMEN
--- NOTE | 2017-09-17 07:53 | PQF ---
YANG GUARDADO SHWETHA CESPEDES [id number] [id number]- [id number] CLINICAL DOCUMENTATION CLARIFICATION FORM: POST DISCHARGE Addendum to original discharge summary date: 09/14/2017 DATE: 09/17/2017 ATTN: Dr. Branch Please exercise your independent, professional judgment in responding to the clarification form. Clinical indicators are provided on the bottom of this form for your review Please check appropriate box(s) to clarify if the following diagnosis has been ruled in or ruled out: Sepsis [x ] Ruled in diagnosis [ ] Continue to treat [ x ] Resolved [ ] Ruled out diagnosis [ ] Cannot rule out diagnosis [ ] Other diagnosis (please specify) [ ] Unable to determine In addition, please specify: Present on Admission (POA): [ x] Yes [ ] No [ ] Unable to determine For continuity of documentation, please document condition throughout progress notes and discharge summary. Thank You. CLINICAL INDICATORS - SIGNS / SYMPTOMS / LABS Per H&P: Has evidence of sepsis with elevated lactic acid (3.2). Per Hospitalist Progress Notes: Sepsis affecting skin. RISK FACTORS Per H&P: Acute bilateral foot gangrene with cellulitis. TREATMENTS Per Hospitalist Notes: IV Meropenem. Per operative report: Bilateral above knee amputations on 09/11. (This form is maintained as a part of the permanent medical record) 2014 [employer]. All Rights Reserved Crystal [email or web address] [phone] MTDD
== END 2017-09-14 16:24 | DRG 853 ==
LOC: ERS 09:39 → T4-A 12:21
PROVIDERS: ADMIT Family Medicine; ATTEND Family Medicine
PROC: 02H633Z Insertion of Infusion Device into Right Atrium, Percutaneous Approach (ICD-10-PCS; 2017-09-05)
PROC: 0Y6C0Z3 Detachment at Right Upper Leg, Low, Open Approach (ICD-10-PCS; principal; 2017-09-11)
PROC: 0Y6D0Z3 Detachment at Left Upper Leg, Low, Open Approach (ICD-10-PCS; 2017-09-11)
DX: A41.9 Sepsis, unspecified organism (principal); L89.153 Pressure ulcer of sacral region, stage 3; G93.41 Metabolic encephalopathy; E11.52 Type 2 diabetes mellitus with diabetic peripheral angiopathy with gangrene; I96 Gangrene, not elsewhere classified; I50.32 Chronic diastolic (congestive) heart failure; L03.116 Cellulitis of left lower limb; L03.115 Cellulitis of right lower limb; T81.89XA Other complications of procedures, not elsewhere classified, initial encounter; I11.0 Hypertensive heart disease with heart failure; J44.9 Chronic obstructive pulmonary disease, unspecified; E11.65 Type 2 diabetes mellitus with hyperglycemia; N40.0 Benign prostatic hyperplasia without lower urinary tract symptoms; E78.5 Hyperlipidemia, unspecified; D53.9 Nutritional anemia, unspecified; E88.09 Other disorders of plasma-protein metabolism, not elsewhere classified; Z86.74 Personal history of sudden cardiac arrest; Z79.84 Long term (current) use of oral hypoglycemic drugs; Z79.899 Other long term (current) drug therapy; Z93.3 Colostomy status
CPT/HCPCS: 36415; 36416; 36569; 80048; 80053; 83605; 85025; 87040; 88307; 96361; 96365; 96375; A4216; C1751; G8978-GP-CL; G8978-GP-CN; G8979-GP-CK; G8979-GP-CL; G8987-GO-CK; G8988-GO-CJ; G8996-GN-CI; G8997-GN-CI; J0360; J1644; J1885; J2001; J2175; J2185; J2270; J2405; J2550; J2704; J3010; J3370

== ENCOUNTER 2017-10-22 14:20 | Outpatient (CLI) | payer MEDICARE, OTHER ==
[~2017-10-22 14:20] MED LIST changes: -Heparin 1,000 UNITS/ML VIAL ONE; +Iopamidol 370 76% 100 ML VIAL ONE
--- NOTE | 2017-10-22 15:50 | CT ---
POSTCONTRAST SOFT TISSUE NECK CT: Date: 10/22/17 HISTORY: Left vocal cord paralysis x3 months. Previous neck surgery. COMPARISON: None. TECHNIQUE: Postcontrast soft tissue neck CT is performed in the axial plane. Reformatted images are submitted fo r interpretation. FINDINGS: Visualized brain parenchyma is unremarkable. Adequate aeration of the visualized paranasal sinuses. Adequate aeration of the mastoid air cells. Patient is edentulous. No obvious mass in the oral cavity. Midline fatty raphe of the tongue is prese rved. There does appear to be some atrophy of the musculature of the tongue. Epiglottis is normal kanu iber. Preepiglottic fat is preserved. There is no prevertebral soft tissue swelling. Symmetric attenuation of the parotid and submandibular glands. Symmetric attenuation of the sternocle idomastoid muscles. Thyroid gland is unremarkable. There are surgical clips in the left neck. Correlate for previous carotid endarterectomy. There is no nspecific increased soft tissue density in the left carotid space at the level of the distal common c arotid artery, carotid bifurcation, and proximal aspect of the internal and external carotid arteries . There is atherosclerosis with short segment moderate narrowing involving the right internal carotid artery, incompletely evaluated. There is short segment severe stenosis involving the proximal left i nternal carotid artery. Consider cardiovascular surgical consultation. There is effacement of the left piriform sinus. No obvious mass is appreciated. Direct visualization is recommended. The true vocal cords appear to be unremarkable. Upper mediastinum is unremarkable. There are presumed chronic and emphysematous changes in the lung a pices. Cervical spine vertebral body height is maintained. No fracture. There is mild bone demineralization. There are nonspecific right paratracheal lymph nodes. IMPRESSION: 1. Effacement of the left piriform sinus. No CT evidence of mass. Direct visualization is recommende d. 2. Atrophy of the tongue. 3. Presumed postsurgical changes involving the left carotid artery. There is short segment severe st enosis involving the proximal left internal carotid artery. 4. Nonspecific, nonenlarged right paratracheal lymph nodes. 5. Atherosclerosis of aorta. POS: [facility]
== END 2017-10-22 14:21 | disposition home or self-care (01) ==
LOC: CT 14:20
PROVIDERS: ATTEND Otolaryngology Plastic Surgery within the Head & Neck
DX: J38.00 Paralysis of vocal cords and larynx, unspecified (principal); I65.22 Occlusion and stenosis of left carotid artery; I70.0 Atherosclerosis of aorta; K14.8 Other diseases of tongue; Z98.890 Other specified postprocedural states
CPT/HCPCS: 70491

== ENCOUNTER 2018-06-26 09:19 | Outpatient (CLI) | payer MEDICARE, OTHER ==
[~2018-06-26 09:19] MED LIST changes: -Iopamidol 370 76% 100 ML VIAL ONE; +Lidocaine 2% 11 ML SYR ONE; +Sodium Chloride 0.9% 15 ML NEB ONE
--- NOTE | 2018-06-26 16:59 | HP ---
HISTORY OF PRESENT ILLNESS: Mr. Cat Bennett is a very pleasant 73-year-old gentleman accompanied by his , who presents to the Wound Center for evaluation of a sacral pressure ulceration. The patient was seen by HARVEY Peace and referred to the Wound Center for evaluation for debridement. The patient's states that Mr. Bennett recently began receiving dressing changes of Medihoney for the sacral wound. The patient is receiving dressing changes with the assistance of Home Health. PAST MEDICAL HISTORY: 1. Diabetes mellitus. 2. Gastroesophageal reflux disease. 3. Peripheral vascular disease. 4. Benign prostatic hypertrophy. 5. COPD. 6. Anemia. 7. Hypertension. 8. Coronary artery disease. 9. History of CVA. 10. Chronic kidney disease. 11. Congestive heart failure. PAST SURGICAL HISTORY: 1. Tonsillectomy. 2. Colon resection. 3. 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 4. Back surgery. 5. Left carotid endarterectomy with patch angioplasty. 6. Left hip hemiarthroplasty. 7. Revision of left total hip arthroplasty. 8. Redo left carotid endarterectomy. 9. Spinal stimulator placement, status post removal. 10. Left common femoral to posterior tibial bypass utilizing in situ saphenous vein. 11. Left great toe amputation prior to bilateral [id number]-[id number]-[id number] amputation in August 2017. 12. Exploratory laparotomy for intestinal perforation, left hemicolectomy and colostomy. MEDICATIONS: 1. Aspirin. 2. Atorvastatin. 3. Trulicity. 4. Duloxetine. 5. Tamsulosin. 6. Metformin. 7. Famotidine. 8. Coreg. ALLERGIES: NO KNOWN DIAGNOSED ALLERGIES. SOCIAL HISTORY: Social history significant for tobacco use of 1 pack of cigarettes per day for 60 years. The patient admits to the occasional consumption of alcohol. FAMILY HISTORY: Family history significant for diabetes mellitus. The patient states that he has 1 uncle, who is diagnosed with diabetes mellitus. Family history is negative for coronary artery disease. PHYSICAL EXAMINATION: VITAL SIGNS: Temperature 97.6, pulse 66, respirations 18, and blood pressure 135/64. Accu-Chek 361. GENERAL: A 73-year-old gentleman, lying on stretcher in examination room, in no acute distress. HEENT: Normocephalic and atraumatic. NECK: No nuchal rigidity. CHEST: Clear to auscultation. CV: Regular rate and rhythm. ABDOMEN: Soft. EXTREMITIES: The patient is status post bilateral ufhhl-tcc-jeji amputation. BACK: A sacral wound is present, which measures approximately 2.5 x 0.5 cm. Granulation tissue is present within the wound margins. Necrotic and nonviable tissue present within the wound margins was debrided with an excisional full-thickness debridement with the use of a curette. No purulent drainage is associated with the wound. No erythema of the skin surrounding the wound is present. No maceration of the skin of the periwound is noted. ASSESSMENT AND PLAN: 1. Sacral wound as described above. Dressing changes of [facility] will be continued. These dressing changes are to be performed 3 times per week after cleansing and irrigation with the assistance of Home Health. Gauze and Mepilex border or Allevyn will be utilized as secondary dressings at the time of dressing changes. No antibiotics will be prescribed today based upon the appearance of the wound. The patient and his understand and are in agreement with the preceding treatment plan. 2. Diabetes mellitus. The patient's Accu-Chek in clinic today is 361. The patient has been told that for optimal wound healing, his blood glucoses should remain below 150. 3. Gastroesophageal reflux disease. 4. Peripheral vascular disease. 5. Benign prostatic hypertrophy. 6. Chronic obstructive pulmonary disease. 7. Anemia. 8. Hypertension. 9. Coronary artery disease. 10. Cerebrovascular accident. 11. Chronic kidney disease. 12. Congestive heart failure. Job ID: [id number]
== END 2018-06-26 09:20 | disposition home or self-care (01) ==
LOC: WCC 09:19
PROVIDERS: ATTEND Family Medicine
DX: L89.153 Pressure ulcer of sacral region, stage 3 (principal); T81.30XS Disruption of wound, unspecified, sequela
CPT/HCPCS: 36416; A4218

== ENCOUNTER 2020-02-03 11:37 | Outpatient (CLI) | payer MEDICARE, OTHER ==
--- NOTE | 2020-02-03 12:01 | RAD ---
XR Shoulder Rt 3 View STANDARD HISTORY: Right shoulder pain FINDINGS: Degenerative changes are present in the AC and glenohumeral jointS. No fracture or dislocation is brandon ntified.
== END 2020-02-03 11:38 | disposition home or self-care (01) ==
LOC: BICRAD 11:37
PROVIDERS: ATTEND Family Medicine
DX: M25.511 Pain in right shoulder (principal); M19.011 Primary osteoarthritis, right shoulder

== ENCOUNTER 2020-03-12 11:27 | Inpatient (IN) | payer MEDICARE ==
[~2020-03-12 11:27] MED LIST changes: -Lidocaine 2% 11 ML SYR ONE; -Sodium Chloride 0.9% 15 ML NEB ONE; +Vancomycin 1.5 GRAM/300 ML BAG 1.5 GM in Premix Bag 1 BAG IVPB SCH
[2020-03-12 12:12] LABS: #Basophils 0.1 thou/uL (0.0-0.2); #Lymphocytes 0.2 thou/uL (1.20-3.40); #Neutrophils 4.4 thou/uL (1.40-6.50); %Basophils 1.8 % (0.0-1.0); %Eosinophils 0.2 % (0.0-10.0); %Lymphocytes 3.4 % (21.0-51.0); %Monocytes 0.2 % (0.0-10.0); %Neutrophils 94.4 % (42.0-75.0); Hemoglobin 16.8 g/dL (14.0-18.0); Mean Corpuscular HGB CONC 34.2 g/dL (32.0-36.0); Mean Corpuscular Hemoglobin 33.9 pg (27.0-31.0); Mean Corpuscular Volume 99.1 fL (78.0-98.0); Mean Platelet Volume 7.8 fL (7.4-10.4); Platelet Count 163 thou/uL (130-400); Red Blood Cell (RBC) Count 4.96 mill/uL (4.70-6.10); White Blood Cell (WBC) Count 4.7 thou/uL (4.8-10.8)
[2020-03-12 12:43] LABS: ALT (SGPT) 9 U/L (8-55); AST (SGOT) 11 U/L (5-34); Albumin 3.2 g/dL (3.4-4.8); Alkaline Phosphatase 117 U/L (40-110); Anion Gap 17 mmol/L (10-20); BUN (Urea Nitrogen) 23 mg/dL (8.4-25.7); Bilirubin, Total 1.4 mg/dL (0.2-1.2); CK (CPK) 40 U/L (30-200); Calc. Creatinine Clearance 0 mL/min (70-130); Calcium 8.3 mg/dL (7.8-10.44); Carbon Dioxide 19 mmol/L (23-31); Chloride 100 mmol/L (98-107); Estimated GFR-MDRD 60; Globulin 3.1 g/dL (2.4-3.5); Glucose 268 mg/dL (83-110); Lipase 247 U/L (8-78); Potassium 4.9 mmol/L (3.5-5.1); Protein, Total 6.3 g/dL (5.8-8.1); Sodium 131 mmol/L (136-145)
--- NOTE | 2020-03-12 12:45 | RAD ---
Exam: Chest one view HISTORY:Chest pain Comparison: 07/31/2017 FINDINGS: Cardiac silhouette: Normal Aorta: Atherosclerosis Pulmonary vessels: Normal Costophrenic angles: Persistent blunting of the right aspect angle likely due to scar or atelectasis. LUNGS: No mass or consolidation. Chronic changes along parenchyma. Diminished lung volumes, likely du e to a poor inspiratory effort. Pneumothorax: None Osseous abnormalities: None IMPRESSION: 1. Atherosclerosis 2. Chronic lung parenchymal changes.
[2020-03-12 12:56] LABS: CKMB 1.6 ng/mL (0-6.6)
[2020-03-12] MEDS ORDERED: Piperacillin/Tazobactam 4.5 GM VIAL ONE (12:57)
--- NOTE | 2020-03-12 13:31 | ULT ---
EXAM: US Gallbladder RUQ CLINICAL HISTORY: Abdominal pain. COMPARISON: None. FINDINGS: Pancreas: Obscured by bowel gas Liver:Diffuse echotexture may be due to hepatic steatosis or hepatocellular disease. Subsequent limit ed for hepatic masses and intrahepatic biliary dilatation. Right hepatic lobe: 18.9 cm Gallbladder: Sonographic evidence of sludge and stones within the gallbladder. Gallbladder wall is no t thickened. No pericholecystic fluid. Phan's sign:Negative Portal Vein: Patent. Appropriate directional flow Bile ducts: Suboptimal evaluation of the common bile duct Right kidney: No hydronephrosis. Right kidney measures 12.3 cm in length. IMPRESSION: 1. Cholelithiasis without sonographic evidence of cholecystitis Results study conveyed to Dr. Jo 03/12/2020 at 4:20 PM Code CR
[2020-03-12] MEDS ORDERED: Ketorolac Tromethamine 30 MG/ML VIAL ONE (14:37)
[2020-03-12] MEDS ORDERED: Iopamidol-370 76% 500 ML 1 ML ONE (15:24)
[2020-03-12 15:26] LABS: Bilirubin Negative (Negative); Blood, Urine Large (Negative); Glucose, Urine (Dipstick) >=1000 mg/dL (Negative); Ketone, Urine Negative (Negative); Leukocyte Moderate (Negative); Nitrite Negative (Negative); Protein, Urine (Dipstick) 100 mg/dL (Neg-Trace); Specific Gravity, Urine 1.025 (1.005-1.030); Urobilinogen 0.2 mg/dL (Less than 2); pH, Urine 5.5 (5.0-9.0)
[2020-03-12 15:30] LABS: Clarity Cloudy (Clear)
[2020-03-12 15:32] LABS: Bacteria/HPF 4+ HPF (None Seen); RBC/HPF 21-50 HPF (0-3); WBC/HPF Greater Than 50 HPF (0-3)
[2020-03-12 16:30] LABS: Lactic Acid 2.9 mmol/L (0.5-2.2)
[2020-03-12] MEDS ORDERED: Norepinephrine 4 MG/4 ML VIAL ONE (17:04)
[2020-03-12] MEDS ORDERED: Norepinephrine 8 MG in Dextrose 5% in Water 242 ML IVPB PRN (17:15)
[2020-03-12] MEDS ORDERED: Vancomycin 1 GM/200 ML BAG ONE (17:17)
--- NOTE | 2020-03-12 17:38 | RAD ---
EXAM: Single view of the chest HISTORY: Central line placement COMPARISON: 03/12/2020 at 12:39 PM FINDINGS: Single view of the chest shows a normal sized cardiomediastinal silhouette. Increased inte rstitial markings are stable. Atherosclerotic calcifications are seen in the aorta. There is a new right IJ central venous catheter with its tip in the superior vena cava. No pneumothorax is seen. Th ere may be a very small right pleural effusion. No acute osseous abnormality. IMPRESSION: Status post central line placement without evidence of complication.
--- NOTE | 2020-03-12 17:51 | CT ---
CT Abdomen Pelvis W Con: 03/12/2020 5:26 PM CLINICAL INFORMATION: Altered mental status COMPARISON: 07/31/2017, 04/25/2017; gallbladder ultrasound 03/12/2020 TECHNIQUE: Multiple contiguous axial images were obtained and a CT of the abdomen and pelvis with IV contrast. C oronal and sagittal reformats were performed. FINDINGS: Lower Chest: Right basilar atelectasis Abdomen: Liver: within normal limits. Bile Ducts: Normal caliber. Gallbladder: Dependent hyperdensities likely represent gallstones. Pancreas: within normal limits. Spleen: within normal limits. Adrenals: Bilateral adrenal hyperplasia without focal mass. Kidneys: 1.6 cm left renal cyst. Pelvis: Reproductive Organs: No pelvic masses. Ureters: within normal limits. Bladder: There is nonspecific thickening of the wall of the urinary bladder. The bladder is partially decompressed. Peritoneum: No ascites or free air, no fluid collection. The previously seen fluid collection in the left abdomen has resolved and there are areas of well-circumscribed loculated fat measuring up to 4.4 cm in size in the left abdomen. Bowel: There is an ostomy in the left lower quadrant of the abdomen. The patient has a Campbell's pouc h. Small bowel is normal in caliber. Mesentery and Retroperitoneum: No enlarged mesenteric or retroperitoneal lymph nodes. Vessels: Atherosclerotic calcifications. There is stable aneurysmal dilatation of the infrarenal aort a which measures 3.7 cm in greatest dimension. Extensive stable mural thrombus is seen within this aneurysm. Abdominal Wall: 6.4 cm eventration of the anterior aspect of the rectus abdominis muscles with the kiersten wel just beneath the skin surface. Bones: Degenerative changes in the spine. The patient has a left hip prosthesis. IMPRESSION: 1. No evidence of acute intraabdominal or pelvic abnormality. 2. Nonspecific thickening of the wall of the urinary bladder 3. Cholelithiasis 4. Left renal cyst 5. Abdominal aortic aneurysm
[2020-03-12] MEDS ORDERED: Ondansetron PF 4 MG/2 ML Vial IVP PRN (20:45)
[2020-03-12] MEDS ORDERED: Ondansetron ODT 4 MG TAB SL PRN (20:45)
[2020-03-12 20:58] VITALS: BMI 23.5
[2020-03-12] MEDS ORDERED: Piperacillin/Tazobactam 3.375 GM VIAL ONE (21:00)
[2020-03-12] MEDS: Piperacillin/Tazobactam 3.375 GM in Sodium Chloride 0.9% 100 ML IVPB SCH (21:08)
[2020-03-12] MEDS: Lactated Ringer's 1,000 ML IV SCH (21:11)
[2020-03-12] MEDS ORDERED: HYDROcodone/Acetaminophen 5/325 mg Tablet PO PRN (21:29)
--- NOTE | 2020-03-12 21:39 | PDOC.HHP ---
Hospitalist HPI - History of Present Illness weakness History of Present Illness: This is a 74-year-old male patient with a history of bilateral below-knee amputation, diabetes mellitus, colostomy, peripheral vascular disease who presented to the ED complaining of generalized weakness and altered mental st atus. At the time of my evaluation he was in his room alone without his who brought him inthe history was limited. He only notes that he was weak and could not move. He denied any fever chills chest pain or shortness of breath. At presentation his blood pressure was 115/84, pulse 107, respiratory 28 and temperature 97.5. Was saturating at 95% on room air. His blood pressure subsequently dipped to BP of 82/47 requiring placement of a central line and initiation of pressorsLevophed. His labs showed WBC 4.7, hemoglobin 16.8 which is 163. Sodium was 131, glucose 268 lactic acid 4.0, troponin 0 0.02. Urinalysis showed greater than 50 WBCs moderately high leukocyte count suggestive of UTI. He was assessed to have septic shock from urosepsis and started on vancomycin and Zosyn. Also received 2 l normal saline Hospitalist team was consulted for admission. Hospitalist ROS - Review of Systems Constitutional: reports: weakness, malaise. denies: fever, chills Respiratory: denies: cough, shortness of breath, hemoptysis Gastrointestinal: denies: nausea, vomiting, abdominal pain Musculoskeletal: denies: neck pain, shoulder pain Neurological: reports: weakness. denies: numbness, incoordination - Medication Medications: Active Medications Generic Name Dose Route Start Last Admin Trade Name Freq PRN Reason Stop Dose Admin Lactated Ringer's 1,000 mls @ 175 mls/hr 03/12/20 20:45 03/12/20 21:11 Lactated Ringer's IV 03/13/20 07:00 1,000 mls .[id number] MIKE Administration Piperacillin Sod/Tazobactam 100 mls @ 200 mls/hr 03/12/20 21:00 03/12/20 21:08 Sod 3.375 gm/ Sodium Chloride IVPB 100 mls 0300,0900,1500,2100 MIKE Administration Sodium Chloride 10 ml 03/12/20 21:00 03/12/20 21:11 Flush - Normal Saline 10 Ml Syringe IVF 10 ml Q12HR MIKE Administration Hospitalist History - Past Medical History Other Medical History: bilateral below-knee amputation, diabetes mellitus, "ing, peripheral vascular disease - Past Surgical History Other Surgical History: Bilateral BKA - Family History Family History: reports: no pertinent history - Social History Living Situation: With Family - Exam General - other findings: Awake, appears drowsy but alert Eye: PERRL, anicteric sclera ENT: normocephalic atraumatic, no oropharyngeal lesions Heart: RRR, no murmur, no gallops Respiratory: no wheezes, no rales, no ronchi, no tachypnea Gastrointestinal: soft, non-tender, non-distended, normal bowel sounds Gastrointestinal - other findings: Colostomy bag in place. Hospitalist Results - Labs Result Diagrams: 03/12/20 11:40 03/12/20 11:40 Lab results: WBC 4.7 thou/uL (4.8-10.8) L 03/12/20 11:40 Hgb 16.8 g/dL (14.0-18.0) 03/12/20 11:40 Hct 49.2 % (42.0-52.0) 03/12/20 11:40 MCV 99.1 fL (78.0-98.0) H 03/12/20 11:40 Plt Count 163 thou/uL (130-400) 03/12/20 11:40 Neutrophils % 94.4 % (42.0-75.0) H 03/12/20 11:40 Sodium 131 mmol/L (136-145) L 03/12/20 11:40 Potassium 4.9 mmol/L (3.5-5.1) 03/12/20 11:40 Chloride 100 mmol/L (98-107) 03/12/20 11:40 Carbon Dioxide 19 mmol/L (23-31) L 03/12/20 11:40 BUN 23 mg/dL (8.4-25.7) 03/12/20 11:40 Creatinine 1.18 mg/dL (0.7-1.3) 03/12/20 11:40 Glucose 268 mg/dL (83-110) H 03/12/20 11:40 Lactic Acid 2.9 mmol/L (0.5-2.2) H 03/12/20 15:31 Calcium 8.3 mg/dL (7.8-10.44) 03/12/20 11:40 Total Bilirubin 1.4 mg/dL (0.2-1.2) H 03/12/20 11:40 AST 11 U/L (5-34) 03/12/20 11:40 ALT 9 U/L (8-55) 03/12/20 11:40 Alkaline Phosphatase 117 U/L (40-110) H 03/12/20 11:40 Creatine Kinase 40 U/L (30-200) 03/12/20 11:40 CK-MB (CK-2) 1.6 ng/mL (0-6.6) 03/12/20 11:40 Troponin I 0.029 ng/mL (< 0.028) H 03/12/20 11:40 Serum Total Protein 6.3 g/dL (5.8-8.1) 03/12/20 11:40 Albumin 3.2 g/dL (3.4-4.8) L 03/12/20 11:40 Lipase 247 U/L (8-78) H 03/12/20 11:40 Urine Ketones Negative mg/dL (Negative) 03/12/20 14:52 Urine Blood Large (Negative) A 03/12/20 14:52 Urine Nitrite Negative (Negative) 03/12/20 14:52 Ur Leukocyte Esterase Moderate (Negative) H 03/12/20 14:52 Urine RBC 21-50 HPF (0-3) A 03/12/20 14:52 Urine WBC Greater Than 50 HPF (0-3) A 03/12/20 14:52 Urine Bacteria 4+ HPF (None Seen) A 03/12/20 14:52 Hospitalist H&P A/P - Plan Plan: 74-year-old male patient with a history of diabetes mellitus, bilateral below- knee amputation, peripheral vascular disease status post aortic aneurysm repair and status post colostomy here today on account of generalized case with septic shock secondary to UTI. Septic shock Hypotensive unresponsive to IV fluids started on pressors. SourceUTI We will continue antibiotics of Vanco and Zosyn Received bolus IV fluidscontinue IV fluid rehydration. Blood cultures pending Lactate elevated we will trend Continue IV fluids wean off Levophed. Acute encephalopathy Likely secondary to sepsis Treat as above. Diabetes mellitus Standard correctional dose insulin Monitor blood glucose. S/p BKA S/p colostomybag in place VT prophylaxis Lovenox CODE STATUSfull code
[2020-03-13] MEDS: Piperacillin/Tazobactam 3.375 GM in Sodium Chloride 0.9% 100 ML IVPB SCH (02:44)
[2020-03-13] MEDS: Lactated Ringer's 1,000 ML IV SCH (02:45)
[2020-03-13] MEDS ORDERED: Vancomycin 1.5 GRAM/300 ML BAG 1.5 GM in Premix Bag 1 BAG IVPB SCH (05:00)
[2020-03-13 05:12] LABS: Hemoglobin A1c 9.1 % (4.0-6.0)
[2020-03-13 05:26] LABS: Anion Gap 14 mmol/L (10-20); BUN (Urea Nitrogen) 22 mg/dL (8.4-25.7); Calc. Creatinine Clearance 51 mL/min (70-130); Calcium 7.7 mg/dL (7.8-10.44); Carbon Dioxide 16 mmol/L (23-31); Chloride 107 mmol/L (98-107); Estimated GFR-MDRD 57; Glucose 317 mg/dL (83-110); Potassium 4.3 mmol/L (3.5-5.1); Sodium 133 mmol/L (136-145)
[2020-03-13 06:08] LABS: Band 53 % (5-11); Hemoglobin 14.5 g/dL (14.0-18.0); Lymphocytes 6 % (21-51); MDiff Complete? YES; Mean Corpuscular HGB CONC 33.6 g/dL (32.0-36.0); Mean Corpuscular Hemoglobin 33.4 pg (27.0-31.0); Mean Corpuscular Volume 99.5 fL (78.0-98.0); Mean Platelet Volume 8.8 fL (7.4-10.4); Monocytes 4 % (0-10); Neutrophil 37 % (42-75); Platelet Count 136 thou/uL (130-400); RBC Distribution Width 13.2 % (11.5-14.5); Red Blood Cell (RBC) Count 4.34 mill/uL (4.70-6.10); White Blood Cell (WBC) Count 20.9 thou/uL (4.8-10.8)
[2020-03-13] MEDS ORDERED: Dextrose 50% Abboject 50 ML SYRINGE SLOW IVP PRN (08:19)
[2020-03-13] MEDS ORDERED: Dextrose 5% in Water 1,000 ML IV PRN (08:19)
[2020-03-13] MEDS: Enoxaparin Sodium 40 MG/0.4 ML SYRINGE SC SCH (09:42)
[2020-03-13] MEDS ORDERED: traMADol HCl 50 MG TAB PO PRN (09:51)
[2020-03-13] MEDS ORDERED: DULoxetine 60 MG CAP PO SCH (10:00)
[2020-03-13] MEDS ORDERED: Glimepiride 4 MG TAB PO SCH (10:00)
[2020-03-13] MEDS ORDERED: Carvedilol 6.25 MG TAB PO SCH (10:00)
--- NOTE | 2020-03-13 11:34 | PDOC.HOSPP ---
- Subjective Encounter Date: 03/13/20 Subjective: Says he is feeling much better. His is present and she reports that he is basically back to his baseline. - Objective Vital Signs & Weight: Vital Signs (12 hours) Temp Pulse Resp BP Pulse Ox 03/13/20 09:43 97 03/13/20 07:59 98.2 F 75 16 116/56 L 97 03/13/20 04:00 98 03/13/20 03:57 97.7 F 76 16 118/54 L 96 Weight Weight 154 lb 12.232 oz Result Diagrams: 03/13/20 04:42 03/13/20 04:42 Additional Labs: Accuchecks 03/13/20 10:33 POC Glucose 303 H Hospitalist ROS - Medication Medications: Active Medications Generic Name Dose Route Start Last Admin Trade Name Freq PRN Reason Stop Dose Admin Hydrocodone Bitart/Acetaminophen 1 tab 03/12/20 21:29 03/13/20 09:59 Hydrocodone/Acetaminophen 5/325 Mg Tablet PO 1 tab Q4H PRN Administration Moderate Pain (4-6) Enoxaparin Sodium 40 mg 03/13/20 09:00 03/13/20 09:42 Enoxaparin Sodium 40 Mg/0.4 Ml Syringe SC 40 mg 0900 MIKE Administration Levofloxacin 500 mg/ Device 100 mls @ 100 mls/hr 03/13/20 09:00 03/13/20 09:42 IVPB 100 mls 0900 MIKE Administration Sodium Chloride 10 ml 03/12/20 21:00 03/13/20 09:43 Flush - Normal Saline 10 Ml Syringe IVF 10 ml Q12HR MIKE Administration - Exam General Appearance: NAD, awake alert Neck: supple, symmetric, no JVD, no thyromegaly, no lymphadenopathy, no carotid bruit Heart: RRR, no murmur, no gallops, no rubs, normal peripheral pulses Respiratory: CTAB, no wheezes, no rales, no ronchi, normal chest expansion, no tachypnea, normal percussion Gastrointestinal: soft, non-tender, non-distended, normal bowel sounds, no palpable masses, no hepatomegaly, no splenomegaly Gastrointestinal - other findings: Left-sided colostomy in place Extremities - other findings: Bilateral lower extremity amputations Skin: normal turgor Hosp A/P (1) E. coli UTI Code(s): N39.0 - URINARY TRACT INFECTION, SITE NOT SPECIFIED; B96.20 - UNSP ESCHERICHIA COLI THE CAUSE OF DISEASES CLASSD ELSWHR Status: Acute (2) E coli bacteremia Code(s): R78.81 - BACTEREMIA; B96.20 - UNSP ESCHERICHIA COLI THE CAUSE OF DISEASES CLASSD ELSWHR Status: Acute (3) Acute metabolic encephalopathy Code(s): G93.41 - METABOLIC ENCEPHALOPATHY Status: Acute (4) BPH (benign prostatic hyperplasia) Code(s): N40.0 - BENIGN PROSTATIC HYPERPLASIA WITHOUT LOWER URINRY TRACT SYMP Status: Chronic (5) CAD (coronary artery disease) Code(s): I25.10 - ATHSCL HEART DISEASE OF [place] CORONARY ARTERY W/O ANG PCTRS Status: Chronic Qualifiers: Coronary Disease-Associated Artery/Lesion type: [place] artery [place] vs. transplanted heart: [place] heart Associated angina: without angina Qualified Code(s): I25.10 - Atherosclerotic heart disease of [place] coronary artery without angina pectoris (6) COPD (chronic obstructive pulmonary disease) Status: Chronic Qualifiers: COPD type: chronic bronchitis Chronic bronchitis type: unspecified Qualified Code(s): J42 - Unspecified chronic bronchitis (7) DM2 (diabetes mellitus, type 2) Status: Chronic Qualifiers: Diabetes mellitus usp insulin use: with intermediate designer use Diabetes mellitus complication status: with circulatory complication (8) HLD (hyperlipidemia) Code(s): E78.5 - HYPERLIPIDEMIA, UNSPECIFIED Status: Chronic Qualifiers: Hyperlipidemia type: unspecified Qualified Code(s): E78.5 - Hyperlipidemia, unspecified (9) HTN (hypertension) Code(s): I10 - ESSENTIAL (PRIMARY) HYPERTENSION Status: Chronic Qualifiers: Hypertension type: essential hypertension Qualified Code(s): I10 - Essential (primary) hypertension (10) PVD (peripheral vascular disease) Code(s): I73.9 - PERIPHERAL VASCULAR DISEASE, UNSPECIFIED Status: Chronic - Plan This patient is a 75-year-old male who presented to the hospital with altered mental status. His work-up confirmed a urinary tract infection. E. coli UTI, bacteremia: Patient initially treated with vancomycin and Zosyn. Subsequently have changed to Zosyn and Levaquin based on culture results. Follow-up sensitivities. Clinically improved. Acute metabolic encephalopathy: Appears to be resolved and back to baseline. Secondary to infection. Diabetes mellitus: Poorly controlled. Hemoglobin A1c is elevated at 9.1. Resuming his Metformin and glimepiride. Continue with Accu-Cheks and sliding scale. Hypertension: Well controlled. Continue with his usual home regimen.
[2020-03-13] MEDS: Tamsulosin HCl 0.4 MG CAP PO SCH (12:22)
[2020-03-13] MEDS: HumaLOG 300 UNITS/3 ML VIAL SC PRN ×3 (12:23→21:23)
[2020-03-13] MEDS: metFORMIN 500 MG TAB PO SCH (17:24)
[2020-03-13] MEDS: Glimepiride 2 MG TAB PO SCH (17:24)
[2020-03-13] MEDS: Carvedilol 6.25 MG TAB PO SCH (21:07)
[2020-03-13] MEDS: DULoxetine 60 MG CAP PO SCH (21:08)
[2020-03-13] MEDS: Aspirin 81 mg Enteric Coated Tablet PO SCH (21:08)
[2020-03-14 08:25] VITALS: BP 143/68; TEMP 98.2
[2020-03-14] MEDS ORDERED: Atorvastatin Calcium 40 MG TAB PO SCH (09:00)
[2020-03-14] MEDS ORDERED: Tamsulosin HCl 0.4 MG CAP PO SCH (09:00)
[2020-03-14] MEDS: metFORMIN 500 MG TAB PO SCH (10:33)
[2020-03-14] MEDS: Glimepiride 2 MG TAB PO SCH (10:33)
[2020-03-14] MEDS: DULoxetine 60 MG CAP PO SCH (10:34)
[2020-03-14] MEDS: Carvedilol 6.25 MG TAB PO SCH (10:34)
[2020-03-14] MEDS: Aspirin 81 mg Enteric Coated Tablet PO SCH (10:34)
[2020-03-14] MEDS: Enoxaparin Sodium 40 MG/0.4 ML SYRINGE SC SCH (10:34)
--- NOTE | 2020-03-15 17:48 | PQF ---
CLINICAL DOCUMENTATION CLARIFICATION FORM: Dear Dr. Angelito Kelsey Date: 03.15.20 Please exercise your independent, professional judgment in responding to the clarification form. Clinical indicators are provided on the bottom of this form for your review. Please check appropriate box(es): Conflicting documentation was noted in the Medical Record; please clarify if patient is being treated/monitored for: [ x ] Sepsis with Septic Shock source UTI [ ] E. Coli Bacteremia UTI no sepsis or septic shock [ ] Other diagnosis [ ] Unable to determine In addition, please specify: Present on Admission (POA): [ ] Yes [ ] No [ ] Unable to determine For continuity of documentation, please document condition throughout progress notes and discharge summary. Thank You. To be completed by CDI/Coding staff for physician review: CLINICAL INDICATORS - SIGNS / SYMPTOMS/ LABS / RESULTS AND LOCATION IN EMR 03.12 ED: Septic Shock SBP 82-132 DBP 47-76 . H&P ([facility]): *Acute encephalopathy likely secondary to sepsis * Septic Shock Hypotensive unresponsive to IV fluids started on pressors Source UTI * Septic Shock form Urosepsis 03.13 PN (Low): E. Coli Bacteremia Labs: WBC Lactic Acid . 4.7 @ 1140 4.0 @ 1531 2.9 . 20.9 RISK FACTORS / RESULTS AND LOCATION IN EMR 03.12 H&P ([facility]): *DM; PVD; Bilateral BKA TREATMENT / RESULTS AND LOCATION IN EMR 03.12 H&P ([facility]): Vancomycin and Zosyn IV *also received 2L NS *Blood Cultures pending * Lactate elevated will trend *Continue IV fluids wean off Levophed CDS Signature: Chayo Koo RN, CCDS Phone #: [phone] [email or web address] This is a permanent part of the Medical Record [facility]
--- NOTE | 2020-03-17 10:49 | PDOC.DS.DS ---
Provider - Provider Date of Admission: 03/12/20 19:41 Date of Discharge: 03/14/20 Admitting Provider: Rinku Daley MD Primary Care Physician: Erika Banks Course - Hospital Course Hospital Course: This patient is a 75-year-old male who presented to the hospital with altered mental status. His work-up confirmed a urinary tract infection. E. coli UTI, bacteremia: Patient initially treated with vancomycin and Zosyn. Subsequently have changed to Zosyn and Levaquin based on culture results. Sensitivities on the culture revealed that it was a pansensitive E. coli. With that it was felt the patient would be safe transitioning to p.o. Levaquin. Acute metabolic encephalopathy: Appears to be resolved and back to baseline. Secondary to infection. Diabetes mellitus: Poorly controlled. Hemoglobin A1c is elevated at 9.1. Resuming his Metformin and glimepiride. Will need to follow-up with his primary care provider as an outpatient. Patient expressed an understanding of that. Hypertension: Well controlled. Continue with his usual home regimen. Once sensitivities of the organism are known and the patient appeared to be clinically improved it was felt appropriate to discharge the patient in stable condition on 2 weeks total of oral antibiotics. Resuscitation Status: 03/12/20 21:29 Resuscitation Status Routine Resuscitation Status: FULL: Full Resuscitation - Labs Lab Results: 03/13/20 04:42 03/13/20 04:42 Microbiology - Entire Visit 03/12/20 14:52 Urine Straight Catheter Urine Culture - Final Escherichia coli 03/12/20 11:40 Venous blood - Left Hand Blood Culture - Final Escherichia coli 03/12/20 11:40 Venous blood - Right Hand Blood Culture - Final Escherichia coli - Physical Exam Vitals: Weight Weight 154 lb 12.232 oz Physical Exam: The patient was seen and examined on the day of discharge. Problem - Problem (1) E. coli UTI Code(s): N39.0 - URINARY TRACT INFECTION, SITE NOT SPECIFIED; B96.20 - UNSP ESCHERICHIA COLI THE CAUSE OF DISEASES CLASSD ELSWHR Status: Acute (2) E coli bacteremia Code(s): R78.81 - BACTEREMIA; B96.20 - UNSP ESCHERICHIA COLI THE CAUSE OF DISEASES CLASSD ELSWHR Status: Acute (3) Acute metabolic encephalopathy Code(s): G93.41 - METABOLIC ENCEPHALOPATHY Status: Acute (4) BPH (benign prostatic hyperplasia) Code(s): N40.0 - BENIGN PROSTATIC HYPERPLASIA WITHOUT LOWER URINRY TRACT SYMP Status: Chronic (5) CAD (coronary artery disease) Code(s): I25.10 - ATHSCL HEART DISEASE OF [place] CORONARY ARTERY W/O ANG PCTRS Status: Chronic Qualifiers: Coronary Disease-Associated Artery/Lesion type: [place] artery [place] vs. transplanted heart: [place] heart Associated angina: without angina Qualified Code(s): I25.10 - Atherosclerotic heart disease of [place] coronary artery without angina pectoris (6) COPD (chronic obstructive pulmonary disease) Status: Chronic Qualifiers: COPD type: chronic bronchitis Chronic bronchitis type: unspecified Qualified Code(s): J42 - Unspecified chronic bronchitis (7) DM2 (diabetes mellitus, type 2) Status: Chronic Qualifiers: Diabetes mellitus intermediate frame tender insulin use: with group home use Diabetes mellitus complication status: with circulatory complication (8) HLD (hyperlipidemia) Code(s): E78.5 - HYPERLIPIDEMIA, UNSPECIFIED Status: Chronic Qualifiers: Hyperlipidemia type: unspecified Qualified Code(s): E78.5 - Hyperlipidemia, unspecified (9) HTN (hypertension) Code(s): I10 - ESSENTIAL (PRIMARY) HYPERTENSION Status: Chronic Qualifiers: Hypertension type: essential hypertension Qualified Code(s): I10 - Es sential (primary) hypertension (10) PVD (peripheral vascular disease) Code(s): I73.9 - PERIPHERAL VASCULAR DISEASE, UNSPECIFIED Status: Chronic - Time spent with Patient (mins): 36 Plan - Discharge Medications Prescriptions: Levofloxacin [Levaquin] 500 mg PO DAILY #12 tab Home Medications: Medication Instructions Recorded Confirmed Type DULoxetine [Cymbalta] 60 mg PO BID 10/14/15 03/13/20 History Tamsulosin HCl [Flomax] 0.4 mg PO DAILY #30 cap 04/26/17 03/13/20 Rx Atorvastatin Calcium 40 mg PO DAILY 05/22/17 03/13/20 History Carvedilol [Coreg] 6.25 mg PO BID 05/22/17 03/13/20 History Ipratropium/Albuterol Sulfate 3 ml NEB Q4H PRN #100 neb 06/04/17 03/13/20 Rx [DuoNeb] traMADol HCl [Ultram] 50 mg PO Q4H PRN tab 06/04/17 03/13/20 Rx Glimepiride [Amaryl] 4 mg PO BID-WM 07/21/17 03/13/20 History metFORMIN HCl [Metformin HCl] 1,000 mg PO BID-WM 07/21/17 03/13/20 History Aspirin [Adult Low Dose Aspirin EC] 81 mg PO BID 03/13/20 03/13/20 History Levofloxacin [Levaquin] 500 mg PO DAILY #12 tab 03/14/20 Rx Allergies: No Known Drug Allergies Allergy (Verified 07/19/19 09:19) - Discharge Instructions Activity:: Activity as Tolerated Nourishment:: Diabetic Diet - Follow up Plan Referrals: Erika Banks [Primary Care Provider] - Disposition: HOME Quality - Care Measures CORE MEASURES:: N/A
== END 2020-03-14 12:50 | disposition home or self-care (01) | DRG 871 ==
LOC: ERS 11:27 → ERHOLD 19:41 → 2SE 03-13 02:16
PROVIDERS: ADMIT Student in an Organized Health Care Education/Training Program; ATTEND Internal Medicine
DX: A41.51 Sepsis due to Escherichia coli [E. coli] (principal); R65.21 Severe sepsis with septic shock; G93.41 Metabolic encephalopathy; N39.0 Urinary tract infection, site not specified; E11.9 Type 2 diabetes mellitus without complications; E78.00 Pure hypercholesterolemia, unspecified; I73.9 Peripheral vascular disease, unspecified; Z87.891 Personal history of nicotine dependence; Z79.84 Long term (current) use of oral hypoglycemic drugs; Z90.49 Acquired absence of other specified parts of digestive tract; Z93.3 Colostomy status; Z79.899 Other long term (current) drug therapy; Z79.82 Long term (current) use of aspirin; Z89.512 Acquired absence of left leg below knee; Z89.511 Acquired absence of right leg below knee; B96.20 Unspecified Escherichia coli [E. coli] as the cause of diseases classified elsewhere
CPT/HCPCS: 36415; 36416; 36556; 51701; 71045; 74177; 76705; 80048; 80053; 81003; 81015; 82550; 82553; 83036; 83605; 83690; 84484; 85025; 87040; 87077; 87086; 87149; 87186; 93005; 94640; 96365; 96366; 96367; 96375; J1650; J1885; J1956; J2543; J3370; J3490; J7070; J7620; Q9967

== ENCOUNTER 2021-02-25 18:40 | Emergency (ER) | payer MEDICARE ==
[2021-02-25 19:20] LABS: #Eosinphils 0.2 thou/uL (0.0-0.7); #Lymphocytes 2.2 thou/uL (1.20-3.40); #Monocytes 0.4 thou/uL (0.11-0.59); #Neutrophils 5.2 thou/uL (1.40-6.50); %Basophils 0.3 % (0.0-1.0); %Lymphocytes 27.6 % (21.0-51.0); %Monocytes 4.4 % (0.0-10.0); %Neutrophils 65.7 % (42.0-75.0); Hemoglobin 17.2 g/dL (14.0-18.0); Mean Corpuscular Hemoglobin 35.4 pg (27.0-31.0); Mean Platelet Volume 10.4 fL (7.4-10.4); Platelet Count 120 thou/uL (130-400); RBC Distribution Width 13.7 % (11.5-14.5); Red Blood Cell (RBC) Count 4.88 mill/uL (4.70-6.10); White Blood Cell (WBC) Count 7.9 thou/uL (4.8-10.8)
[2021-02-25 19:56] LABS: Bacteria/HPF None Seen HPF (None Seen); Bilirubin Negative (Negative); Blood, Urine Trace (Negative); Clarity Clear (Clear); Glucose, Urine (Dipstick) Greater than 1000 mg/dL (Negative); Ketone, Urine Negative (Negative); Leukocyte Negative Leu/uL (Negative); Nitrite Negative (Negative); Protein, Urine (Dipstick) 50 mg/dL (Neg-Trace); RBC/HPF 0-3 HPF (0-3); Specific Gravity, Urine 1.023 (1.002-1.036); Squamous Epithelial None Seen HPF (0-3); Urobilinogen Normal mg/dL (Less than 2); WBC/HPF 0-3 HPF (0-3); pH, Urine 5.5 (5.0-9.0)
[2021-02-25] MEDS ORDERED: Nitroglycerin 2% Ointment 1 INCH/1 GM Packet ONE (20:06)
[2021-02-25] MEDS ORDERED: Aspirin Chewable 81 MG TAB ONE (20:09)
[2021-02-25 20:40] LABS: Albumin 3.9 g/dL (3.4-4.8)
[2021-02-25 20:41] LABS: Chloride 106 mmol/L (98-107); Sodium 141 mmol/L (136-145)
[2021-02-25 20:42] LABS: Glucose 365 mg/dL (83-110)
[2021-02-25 20:43] LABS: Globulin 2.7 g/dL (2.4-3.5); Protein, Total 6.6 g/dL (5.8-8.1)
[2021-02-25 20:44] LABS: Anion Gap 14 mmol/L (10-20); Bilirubin, Total 0.3 mg/dL (0.2-1.2); Carbon Dioxide 26 mmol/L (23-31)
[2021-02-25 20:45] LABS: Alkaline Phosphatase 88 U/L (40-110)
[2021-02-25 20:46] LABS: Calc. Creatinine Clearance 0 mL/min (70-130)
[2021-02-25 20:47] LABS: BUN (Urea Nitrogen) 20 mg/dL (8.4-25.7)
[2021-02-25 20:48] LABS: ALT (SGPT) 20 U/L (8-55); AST (SGOT) 14 U/L (5-34); Lipase 56 U/L (8-78)
== END 2021-02-25 21:40 | disposition home or self-care (01) ==
LOC: ERS 18:40
DX: R07.89 Other chest pain (principal); I45.2 Bifascicular block; E11.9 Type 2 diabetes mellitus without complications; I73.9 Peripheral vascular disease, unspecified; E78.00 Pure hypercholesterolemia, unspecified; F17.210 Nicotine dependence, cigarettes, uncomplicated; Z79.84 Long term (current) use of oral hypoglycemic drugs; Z79.82 Long term (current) use of aspirin; Z79.899 Other long term (current) drug therapy; Z95.5 Presence of coronary angioplasty implant and graft; Z93.3 Colostomy status
CPT/HCPCS: 36415; 71045; 80053; 81003; 81015; 83690; 84484; 85025; 93005

== ENCOUNTER 2021-10-25 21:16 | Emergency (ER) | payer MEDICARE ==
[2021-10-25 21:58] LABS: #Basophils 0.1 thou/uL (0.0-0.2); #Eosinphils 0.3 thou/uL (0.0-0.7); #Lymphocytes 2.3 thou/uL (1.20-3.40); #Monocytes 0.6 thou/uL (0.11-0.59); #Neutrophils 7.6 thou/uL (1.40-6.50); %Basophils 0.7 % (0.0-1.0); %Eosinophils 2.7 % (0.0-10.0); %Lymphocytes 21.1 % (21.0-51.0); %Monocytes 5.4 % (0.0-10.0); %Neutrophils 70.2 % (42.0-75.0); Mean Corpuscular HGB CONC 33.1 g/dL (32.0-36.0); Mean Corpuscular Hemoglobin 33.9 pg (27.0-31.0); Platelet Count 166 thou/uL (130-400); RBC Distribution Width 13.2 % (11.5-14.5); Red Blood Cell (RBC) Count 4.71 mill/uL (4.70-6.10); White Blood Cell (WBC) Count 10.8 thou/uL (4.8-10.8)
[2021-10-25 22:19] LABS: ALT (SGPT) 15 U/L (8-55); AST (SGOT) 14 U/L (5-34); Albumin 3.6 g/dL (3.4-4.8); Alkaline Phosphatase 82 U/L (40-110); Anion Gap 15 mmol/L (10-20); BUN (Urea Nitrogen) 22 mg/dL (8.4-25.7); Bilirubin, Total 0.6 mg/dL (0.2-1.2); Calc. Creatinine Clearance 0 mL/min (70-130); Calcium 8.8 mg/dL (7.8-10.44); Carbon Dioxide 22 mmol/L (23-31); Chloride 108 mmol/L (98-107); Estimated GFR 73; Globulin 2.8 g/dL (2.4-3.5); Glucose 409 mg/dL (83-110); Potassium 4.9 mmol/L (3.5-5.1); Protein, Total 6.4 g/dL (5.8-8.1); Sodium 140 mmol/L (136-145)
== END 2021-10-25 23:30 | disposition home or self-care (01) ==
LOC: ERS 21:16
DX: R06.00 Dyspnea, unspecified (principal); I45.2 Bifascicular block; E11.9 Type 2 diabetes mellitus without complications; E78.00 Pure hypercholesterolemia, unspecified; F17.210 Nicotine dependence, cigarettes, uncomplicated; I73.9 Peripheral vascular disease, unspecified; Z79.82 Long term (current) use of aspirin; Z79.899 Other long term (current) drug therapy
CPT/HCPCS: 36415; 71045; 80053; 83880; 84484; 85025; 93005

== ENCOUNTER 2021-10-29 19:20 | Observation (INO) | payer MEDICARE ==
[2021-10-29 20:14] LABS: #Basophils 0.1 thou/uL (0.0-0.2); #Eosinphils 0.2 thou/uL (0.0-0.7); #Lymphocytes 2.6 thou/uL (1.20-3.40); #Monocytes 0.6 thou/uL (0.11-0.59); #Neutrophils 7.3 thou/uL (1.40-6.50); %Basophils 0.8 % (0.0-1.0); %Eosinophils 2.2 % (0.0-10.0); %Lymphocytes 23.7 % (21.0-51.0); %Monocytes 5.4 % (0.0-10.0); %Neutrophils 67.9 % (42.0-75.0); Mean Corpuscular HGB CONC 32.4 g/dL (32.0-36.0); Mean Corpuscular Hemoglobin 33.5 pg (27.0-31.0); Mean Platelet Volume 7.8 fL (7.4-10.4); Platelet Count 156 thou/uL (130-400); RBC Distribution Width 13.2 % (11.5-14.5); Red Blood Cell (RBC) Count 4.77 mill/uL (4.70-6.10); White Blood Cell (WBC) Count 10.7 thou/uL (4.8-10.8)
[2021-10-29 20:35] LABS: ALT (SGPT) 14 U/L (8-55); AST (SGOT) 13 U/L (5-34); Albumin 3.6 g/dL (3.4-4.8); Alkaline Phosphatase 92 U/L (40-110); Anion Gap 17 mmol/L (10-20); BUN (Urea Nitrogen) 16 mg/dL (8.4-25.7); Bilirubin, Total 0.8 mg/dL (0.2-1.2); Calc. Creatinine Clearance 0 mL/min (70-130); Calcium 8.3 mg/dL (7.8-10.44); Carbon Dioxide 20 mmol/L (23-31); Chloride 107 mmol/L (98-107); Estimated GFR 73; Globulin 2.7 g/dL (2.4-3.5); Glucose 240 mg/dL (83-110); Potassium 4.8 mmol/L (3.5-5.1); Protein, Total 6.3 g/dL (5.8-8.1); Sodium 139 mmol/L (136-145)
[2021-10-29] MEDS ORDERED: Dextrose 5% in Water 1,000 ML IV PRN (21:49)
[2021-10-29] MEDS ORDERED: Bisacodyl 5 MG TAB PO PRN (21:49)
[2021-10-29] MEDS ORDERED: HYDROcodone/Acetaminophen 7.5/325 mg Tablet PO PRN (21:49)
[2021-10-29] MEDS ORDERED: Zolpidem Tartrate 5 MG TAB PO PRN (21:49)
[2021-10-29] MEDS ORDERED: Ondansetron PF 4 MG/2 ML Vial IVP PRN (21:49)
[2021-10-29] MEDS ORDERED: Acetaminophen 325 MG TAB PO PRN (21:49)
[2021-10-29] MEDS ORDERED: HumaLOG 300 UNITS/3 ML VIAL SC PRN ×2 (21:49)
[2021-10-29] MEDS ORDERED: Dextrose 50% Abboject 50 ML SYRINGE SLOW IVP PRN (21:49)
[2021-10-29] MEDS ORDERED: hydrALAZINE 20 MG/ML VIAL SLOW IVP PRN (21:51)
[2021-10-29] MEDS ORDERED: Morphine 2 MG/ML VIAL SLOW IVP PRN (21:51)
[2021-10-29] MEDS ORDERED: Sodium Chloride 0.9% 1,000 ML IV SCH (22:00)
[2021-10-29] MEDS ORDERED: Nicotine 14 MG PATCH TD SCH (22:00)
[2021-10-29] MEDS ORDERED: cefTRIAXone\\ROCEPHIN 1 GM VIAL ONE (22:03)
[2021-10-29 22:46] LABS: SARS-CoV-2 NAA Rapid Test Not Detected (NotDetected)
[2021-10-29] MEDS ORDERED: Azithromycin 500 MG VIAL ONE (23:21)
[2021-10-30 01:34] VITALS: BMI 49.0
[2021-10-30] MEDS: Guaifenesin DM 100-10/5 ML UDCUP PO PRN ×2 (01:48→05:46)
[2021-10-30 04:24] LABS: Bilirubin Negative (Negative); Blood, Urine Trace (Negative); Clarity Clear (Clear); Glucose, Urine (Dipstick) Greater than 1000 mg/dL (Negative); Ketone, Urine Negative (Negative); Leukocyte Negative Leu/uL (Negative); Nitrite Negative (Negative); Protein, Urine (Dipstick) 30 mg/dL (Neg-Trace); Specific Gravity, Urine 1.014 (1.002-1.036); Urobilinogen Normal mg/dL (Less than 2); pH, Urine 5.5 (5.0-9.0)
[2021-10-30 06:04] LABS: #Eosinphils 0.2 thou/uL (0.0-0.7); #Lymphocytes 2.2 thou/uL (1.20-3.40); #Monocytes 0.7 thou/uL (0.11-0.59); %Basophils 0.3 % (0.0-1.0); %Eosinophils 1.9 % (0.0-10.0); %Lymphocytes 19.8 % (21.0-51.0); %Monocytes 5.9 % (0.0-10.0); %Neutrophils 72.2 % (42.0-75.0); Hemoglobin 15.2 g/dL (14.0-18.0); Mean Corpuscular HGB CONC 33.9 g/dL (32.0-36.0); Mean Corpuscular Hemoglobin 34.7 pg (27.0-31.0); Mean Platelet Volume 7.9 fL (7.4-10.4); Platelet Count 132 thou/uL (130-400); RBC Distribution Width 12.9 % (11.5-14.5); Red Blood Cell (RBC) Count 4.39 mill/uL (4.70-6.10)
[2021-10-30 06:04] LABS: RBC/HPF 0-3 HPF (0-3); WBC/HPF 0-3 HPF (0-3)
[2021-10-30 06:28] LABS: ALT (SGPT) 13 U/L (8-55); AST (SGOT) 11 U/L (5-34); Albumin 3.6 g/dL (3.4-4.8); Alkaline Phosphatase 76 U/L (40-110); Anion Gap 13 mmol/L (10-20); BUN (Urea Nitrogen) 15 mg/dL (8.4-25.7); Bilirubin, Total 0.9 mg/dL (0.2-1.2); Calc. Creatinine Clearance 72 mL/min (70-130); Calcium 8.6 mg/dL (7.8-10.44); Carbon Dioxide 23 mmol/L (23-31); Chloride 110 mmol/L (98-107); Estimated GFR 88; Globulin 2.5 g/dL (2.4-3.5); Glucose 226 mg/dL (83-110); Potassium 4.8 mmol/L (3.5-5.1); Protein, Total 6.1 g/dL (5.8-8.1); Sodium 141 mmol/L (136-145)
[2021-10-30] MEDS ORDERED: metFORMIN 500 MG TAB PO SCH (08:00)
[2021-10-30] MEDS ORDERED: Glimepiride 2 MG TAB PO SCH (08:00)
[2021-10-30 08:36] VITALS: BP 145/64; TEMP 98.5
[2021-10-30] MEDS ORDERED: Tamsulosin HCl 0.4 MG CAP PO SCH (09:00)
[2021-10-30] MEDS ORDERED: Atorvastatin Calcium 40 MG TAB PO SCH (09:00)
[2021-10-30] MEDS ORDERED: Carvedilol 6.25 MG TAB PO SCH (09:00)
[2021-10-30] MEDS ORDERED: Aspirin 81 mg Enteric Coated Tablet PO SCH (09:00)
[2021-10-30] MEDS ORDERED: Enoxaparin Sodium 30 MG/0.3 ML SYRINGE SC SCH (09:00)
[2021-10-30] MEDS ORDERED: DULoxetine 60 MG CAP PO SCH (09:00)
== END 2021-10-30 09:50 | disposition home or self-care (01) ==
LOC: ERS 19:20 → SJJU 21:45
PROVIDERS: ADMIT Internal Medicine; ATTEND Internal Medicine
DX: J18.9 Pneumonia, unspecified organism (principal); J98.11 Atelectasis; I10 Essential (primary) hypertension; E11.51 Type 2 diabetes mellitus with diabetic peripheral angiopathy without gangrene; J96.91 Respiratory failure, unspecified with hypoxia; J44.9 Chronic obstructive pulmonary disease, unspecified; F17.210 Nicotine dependence, cigarettes, uncomplicated; Z79.82 Long term (current) use of aspirin; Z79.84 Long term (current) use of oral hypoglycemic drugs; Z79.899 Other long term (current) drug therapy; Z89.512 Acquired absence of left leg below knee; Z89.511 Acquired absence of right leg below knee; Z93.3 Colostomy status; Z20.822 Contact with and (suspected) exposure to COVID-19
CPT/HCPCS: 71045; 80053; 81001; 82962; 83605; 83880; 84484; 85025; 87040; 87804 ×2; 93005; 94640; 94760; 96361; 96365; 96367; 99285; U0002; 36415; 36416; 84443; 96375; G0378; J0456; J0696; J1815; J1956; J7050; J7620

== ENCOUNTER 2022-01-10 11:25 | Outpatient (CLI) | payer MEDICARE | END 2022-01-10 11:26 | disposition home or self-care (01) | LOC: RAD 11:25 | PROVIDERS: ATTEND Internal Medicine Critical Care Medicine | DX: R06.09 Other forms of dyspnea (principal); J90 Pleural effusion, not elsewhere classified; R91.8 Other nonspecific abnormal finding of lung field | CPT/HCPCS: 71046 ==

== ENCOUNTER 2022-01-30 08:16 | Day surgery (SDC) | payer MEDICARE ==
[2022-01-30] MEDS ORDERED: PROPOFOL 200 MG/20 ML VIAL ONE (10:23)
[2022-01-30] MEDS ORDERED: Lidocaine 1% MPF 2 ML VIAL ONE (10:23)
== END 2022-01-30 12:00 | disposition home or self-care (01) ==
LOC: SDC 08:16
PROVIDERS: ATTEND Internal Medicine Gastroenterology
PROC: 0D738ZZ Dilation of Lower Esophagus, Via Natural or Artificial Opening Endoscopic (ICD-10-PCS; principal; 2022-01-30)
PROC: 0DBM8ZX Excision of Descending Colon, Via Natural or Artificial Opening Endoscopic, Diagnostic (ICD-10-PCS; 2022-01-30)
PROC: 0DBN8ZX Excision of Sigmoid Colon, Via Natural or Artificial Opening Endoscopic, Diagnostic (ICD-10-PCS; 2022-01-30)
DX: Z12.11 Encounter for screening for malignant neoplasm of colon (principal); D12.4 Benign neoplasm of descending colon; D12.5 Benign neoplasm of sigmoid colon; K22.2 Esophageal obstruction; F17.210 Nicotine dependence, cigarettes, uncomplicated; E11.9 Type 2 diabetes mellitus without complications; J44.9 Chronic obstructive pulmonary disease, unspecified; Z86.010 Personal history of colon polyps; Z79.84 Long term (current) use of oral hypoglycemic drugs; Z79.85 Long-term (current) use of injectable non-insulin antidiabetic drugs; Z79.899 Other long term (current) drug therapy; Z90.49 Acquired absence of other specified parts of digestive tract; Z89.612 Acquired absence of left leg above knee; Z89.611 Acquired absence of right leg above knee; Z93.2 Ileostomy status
CPT/HCPCS: 88305; J2704

== ENCOUNTER 2022-11-07 18:39 | Inpatient (IN) | payer MEDICARE ==
[2022-11-07 19:24] LABS: #Eosinphils 0.1 thou/uL (0.0-0.7); #Monocytes 0.5 thou/uL (0.11-0.59); #Neutrophils 5.8 thou/uL (1.40-6.50); %Basophils 0.3 % (0.0-1.0); %Lymphocytes 15.7 % (21.0-51.0); %Monocytes 6.9 % (0.0-10.0); %Neutrophils 75.8 % (42.0-75.0); Hemoglobin 13.1 g/dL (14.0-18.0); Mean Corpuscular HGB CONC 32.8 g/dL (32.0-36.0); Mean Corpuscular Hemoglobin 33.5 pg (27.0-31.0); Mean Corpuscular Volume 102.3 fl (78.0-98.0); Mean Platelet Volume 11.5 fL (7.4-10.4); RBC Distribution Width 14.5 % (11.5-14.5); Red Blood Cell (RBC) Count 3.91 mill/uL (4.70-6.10); White Blood Cell (WBC) Count 7.7 10x3/uL (4.8-10.8)
[2022-11-07 19:25] LABS: Platelet Count 114 10x3/uL (130-400)
[2022-11-07] MEDS ORDERED: Ipratropium/Albuterol 3 ML NEB ONE (19:47)
[2022-11-07] MEDS ORDERED: methylPREDNISolone Sod Succ/PF 125 MG/2 ML VIAL ONE (19:48)
[2022-11-07] MEDS ORDERED: cefTRIAXone (ROCEPHIN) 2 GM VIAL ONE (19:48)
[2022-11-07 20:04] LABS: ALT (SGPT) 20 U/L (8-55); AST (SGOT) 25 U/L (5-34); Albumin 3.6 g/dL (3.4-4.8); Alkaline Phosphatase 92 U/L (40-110); Anion Gap 16 mmol/L (10-20); BUN (Urea Nitrogen) 24 mg/dL (8.4-25.7); Calc. Creatinine Clearance 0 mL/min (70-130); Calcium 8.5 mg/dL (7.8-10.44); Carbon Dioxide 19 mmol/L (23-31); Chloride 108 mmol/L (98-107); Estimated GFR 48; Globulin 3.1 g/dL (2.4-3.5); Glucose 190 mg/dL (83-110); Potassium 4.6 mmol/L (3.5-5.1); Protein, Total 6.7 g/dL (5.8-8.1); Sodium 138 mmol/L (136-145)
[2022-11-07] MEDS ORDERED: Azithromycin 500 MG VIAL ONE (20:55)
[2022-11-07] MEDS ORDERED: Acetaminophen 325 MG TAB PO PRN (21:45)
[2022-11-07] MEDS ORDERED: Ondansetron PF 4 MG/2 ML Vial IVP PRN (21:45)
[2022-11-07] MEDS ORDERED: Ondansetron ODT 4 MG TAB SL PRN (21:45)
[2022-11-07] MEDS ORDERED: Ipratropium/Albuterol 3 ML NEB EZPAP PRN (23:01)
[2022-11-07 23:33] VITALS: BMI 26.7
[2022-11-08 01:09] LABS: Strep pneumo Urine Ag NEGATIVE (NEGATIVE)
[2022-11-08 01:10] LABS: Legionella Urinary Ag Negative (Negative)
[2022-11-08 04:43] LABS: #Monocytes 0.1 thou/uL (0.11-0.59); %Basophils 0.3 % (0.0-1.0); %Lymphocytes 11.2 % (21.0-51.0); %Neutrophils 85.9 % (42.0-75.0); Hemoglobin 12.7 g/dL (14.0-18.0); Mean Corpuscular HGB CONC 32.5 g/dL (32.0-36.0); Mean Corpuscular Hemoglobin 33.2 pg (27.0-31.0); Mean Corpuscular Volume 102.1 fl (78.0-98.0); Mean Platelet Volume 11.3 fL (7.4-10.4); Platelet Count 104 10x3/uL (130-400); RBC Distribution Width 14.3 % (11.5-14.5); Red Blood Cell (RBC) Count 3.83 mill/uL (4.70-6.10)
[2022-11-08] MEDS: Ipratropium/Albuterol 3 ML NEB NEB SCH ×3 (05:24→10:44)
[2022-11-08 05:27] LABS: BUN (Urea Nitrogen) 26 mg/dL (8.4-25.7); Calc. Creatinine Clearance 42 mL/min (70-130); Estimated GFR 53
[2022-11-08 06:28] LABS: Calcium 8.3 mg/dL (7.8-10.44); Chloride 110 mmol/L (98-107); Sodium 138 mmol/L (136-145)
[2022-11-08 06:29] LABS: Anion Gap 15 mmol/L (10-20); Carbon Dioxide 18 mmol/L (23-31); Glucose 314 mg/dL (83-110)
[2022-11-08] MEDS ORDERED: methylPREDNISolone Sod Succ/PF 125 MG/2 ML VIAL IVP SCH (07:00)
[2022-11-08] MEDS ORDERED: HumaLOG 300 UNITS/3 ML VIAL SC PRN ×2 (07:01)
[2022-11-08] MEDS ORDERED: Dextrose 50% Abboject 50 ML SYRINGE SLOW IVP PRN (07:01)
[2022-11-08] MEDS ORDERED: Dextrose 5% in Water 1,000 ML IV PRN (07:01)
[2022-11-08] MEDS ORDERED: Glucagon 1 MG/ML KIT IM PRN (07:01)
[2022-11-08] MEDS ORDERED: Sodium Chloride 0.9% 1,000 ML IV SCH (07:15)
[2022-11-08] MEDS ORDERED: ALPRAZolam 0.25 MG TAB PO PRN (11:09)
[2022-11-08 12:08] VITALS: BP 185/75; TEMP 97.1
[2022-11-08] MEDS ORDERED: Budesonide 0.5 MG/2 ML NEB NEB SCH (12:30)
[2022-11-08] MEDS ORDERED: Albuterol 200 PUFF (6.7GM INHALER) INH PRN (13:15)
[2022-11-08] MEDS ORDERED: Albuterol 200 PUFF (6.7GM INHALER) INH SCH (14:30)
[2022-11-08] MEDS ORDERED: metFORMIN 500 MG TAB PO SCH (17:00)
[2022-11-08] MEDS ORDERED: cefTRIAXone\\ROCEPHIN 1 GM in Sodium Chloride 0.9% 100 ML IVPB SCH (20:00)
[2022-11-08] MEDS ORDERED: Carvedilol 6.25 MG TAB PO SCH (21:00)
[2022-11-08] MEDS ORDERED: Melatonin 3 MG TAB PO SCH (21:00)
[2022-11-08] MEDS ORDERED: Azithromycin 500 MG in Sodium Chloride 0.9% 250 ML 250 ML IVPB SCH (21:00)
[2022-11-09] MEDS ORDERED: Atorvastatin Calcium 40 MG TAB PO SCH (09:00)
[2022-11-09] MEDS ORDERED: Tamsulosin HCl 0.4 MG CAP PO SCH (09:00)
[2022-11-09] MEDS ORDERED: Dulaglutide [Trulicity] 0.75 MG/0.5 ML Pen.Injctr SC SCH (09:00)
== END 2022-11-08 13:05 | disposition left against medical advice (07) | DRG 177 ==
LOC: ERS 18:39 → 2NO 21:43 → OBSVTOIN 11-08 00:26
PROVIDERS: ADMIT Internal Medicine; ATTEND Emergency Medicine
PROC: 8E0ZXY6 Isolation (ICD-10-PCS; principal; 2022-11-08)
DX: U07.1 COVID-19 (principal); J12.82 Pneumonia due to coronavirus disease 2019; J15.9 Unspecified bacterial pneumonia; J44.1 Chronic obstructive pulmonary disease with (acute) exacerbation; J44.0 Chronic obstructive pulmonary disease with (acute) lower respiratory infection; N17.9 Acute kidney failure, unspecified; E11.51 Type 2 diabetes mellitus with diabetic peripheral angiopathy without gangrene; L89.159 Pressure ulcer of sacral region, unspecified stage; Z89.612 Acquired absence of left leg above knee; Z89.611 Acquired absence of right leg above knee; Z79.84 Long term (current) use of oral hypoglycemic drugs; Z79.52 Long term (current) use of systemic steroids; Z90.49 Acquired absence of other specified parts of digestive tract; Z90.89 Acquired absence of other organs; F17.210 Nicotine dependence, cigarettes, uncomplicated; Z93.3 Colostomy status; E11.65 Type 2 diabetes mellitus with hyperglycemia; R77.8 Other specified abnormalities of plasma proteins
CPT/HCPCS: 36415; 36416; 71045; 80048; 80053; 82553; 83605; 83880; 84484; 85025; 87070; 87205; 87449; 87635; 87899; 93005; 94640; 96365; 96367; 96375; 97139; J0456; J0696; J2930; J7050; J7620

== ENCOUNTER 2024-11-20 08:29 | Inpatient (IN) | payer MEDICARE ==
[2024-11-20 08:47] LABS: Actual Bicarbonate (HCO3a) 18.6 mEq/L (22-28); Analyzer IN Cardio ER; Base Excess (BEa) -5.5 mEq/L (-2.0 to +3.0); CO2 Tension 32.5 mmHg (35.0-45.0); Calcium, Ionized (arterial) 1.12 mmol/L (1.12-1.30); Hematocrit-ABG 39 % (42.0-52.0); Hemoglobin (Hb) 13.4 g/dL (14.0-18.0); pH, Arterial 7.376 (7.35-7.45)
[2024-11-20] MEDS ORDERED: Heparin 10,000 UNITS/ 10 ML VIAL ONE (08:48)
[2024-11-20 08:51] LABS: O2 Tension (PaO2), arterial 57.2 mmHg (> 60.0); Potassium - ABG Lab 6.29 mmol/L (3.70-5.30)
[2024-11-20 09:00] LABS: Hematocrit 39.7 % (42.0-52.0); Hemoglobin 13.1 g/dL (14.0-18.0); Mean Corpuscular Hemoglobin 33.6 pg (27.0-31.0); Mean Corpuscular Volume 101.8 fL (78.0-98.0); Platelet Count 209 10x3/uL (130-400); Red Blood Cell (RBC) Count 3.90 mill/uL (4.70-6.10); White Blood Cell (WBC) Count 28.76 10x3/uL (4.8-10.8)
[2024-11-20 09:07] LABS: INR-International Normal Ratio 1.3; Prothrombin Time 16.4 sec (12.0-14.7)
[2024-11-20 09:08] LABS: PTT 32.8 sec (22.9-36.1)
[2024-11-20] MEDS ORDERED: Albuterol 2.5 MG (3 mL) NEB ONE (09:16)
[2024-11-20] MEDS ORDERED: Albuterol 2.5 MG (0.5 mL) NEB ONE (09:16)
[2024-11-20 09:19] LABS: CRP,High Sensitivity (Inhouse) 23.17 mg/dL (< or = 0.5)
[2024-11-20 09:20] LABS: ALT (SGPT) 51 U/L (Less than 45); AST (SGOT) 75 U/L (11-34); Albumin 2.8 g/dL (3.1-4.5); Alkaline Phosphatase 121 U/L (40-110); Anion Gap 24 mmol/L (10-20); BUN (Urea Nitrogen) 69 mg/dL (8.4-25.7); Bilirubin, Total 1.4 mg/dL (0.3-1.2); Calc. Creatinine Clearance 0 mL/min (70-130); Calcium 8.2 mg/dL (7.8-10.44); Carbon Dioxide 17 mmol/L (23-31); Chloride 105 mmol/L (98-107); Globulin 3.3 g/dL (2.4-3.5); Glucose 391 mg/dL (83-110); Lipase 15 U/L (8-78); Magnesium 1.9 mg/dL (1.6-2.6); Potassium 6.6 mmol/L (3.5-5.1); Sodium 139 mmol/L (136-145); Troponin I 0.269 ng/mL (< 0.028)
[2024-11-20] MEDS ORDERED: Sodium Bicarb 50 MEQ/50 ML Abboject 8.4% SYRINGE ONE (09:25)
[2024-11-20] MEDS ORDERED: CALCIUM GLUC 1 GM/NS 50 ML IV Bag ONE (09:25)
[2024-11-20 09:35] LABS: Macrocytosis SLIGHT = 6-15 cells HPF (0-5); Platelet Adequacy Comment Platelets Normal; Polychromasia SLIGHT = 2-3 cells HPF (0-2); RBC Morphology Within Normal Limits; Smudge Cells 1.0 %
[2024-11-20 09:39] LABS: Bacteria/HPF None Seen HPF (None Seen); CAUTI Indications for Culture Alt mental st,lethar; Glucose, Urine (Dipstick) 300 mg/dL (Negative); Leukocyte Negative Leu/uL (Negative); Protein, Urine (Dipstick) 300 mg/dL (Neg-Trace); Specific Gravity, Urine 1.020 (1.002-1.036); WBC/HPF 0-3 HPF (0-3)
[2024-11-20 09:42] LABS: Urine Culture Reflex No No
[2024-11-20 11:53] LABS: HBSAB Concentration Less than 8.00 mIU/mL; Hep B Core Total Ab NONREACTIVE (NonReactive); Hep B Core Total Index 0.04 S/CO (0-0.79); Hep B Surf Ag NONREACTIVE S/CO (NonReactive); Hep C IgG Ab NONREACTIVE S/CO (NonReactive); Hep C Index 0.05 S/CO (0-0.79)
[2024-11-20] MEDS ORDERED: Ondansetron PF 4 MG/2 ML Vial IVP PRN (12:08)
[2024-11-20] MEDS ORDERED: Senokot S 8.6-50 MG TAB PO PRN (12:08)
[2024-11-20] MEDS ORDERED: Acetaminophen 325 MG TAB PO PRN (12:08)
[2024-11-20 12:43] LABS: Actual Bicarbonate (HCO3a) 19.6 mEq/L (22-28); Analyzer IN Cardio ER; Base Excess (BEa) -4.5 mEq/L (-2.0 to +3.0); CO2 Tension 32.9 mmHg (35.0-45.0); Calcium, Ionized (arterial) 1.17 mmol/L (1.12-1.30); Hematocrit-ABG 36 % (42.0-52.0); Hemoglobin (Hb) 12.1 g/dL (14.0-18.0); O2 Tension (PaO2), arterial 63.6 mmHg (> 60.0); Potassium - ABG Lab 5.07 mmol/L (3.70-5.30); pH, Arterial 7.393 (7.35-7.45)
[2024-11-20] MEDS ORDERED: Iopamidol-370 76% 500 ML MDV (1 ML CHARGE) ONE (13:33)
[2024-11-20] MEDS: LOKELMA 10 GM PACKET PO SCH (13:45)
[2024-11-20] MEDS ORDERED: Dextrose 50% Abboject 50 ML SYRINGE SLOW IVP PRN (15:14)
[2024-11-20] MEDS ORDERED: Glucagon 1 MG/ML KIT IM PRN (15:14)
[2024-11-20] MEDS: Heparin 5,000 UNITS/ML VIAL SC SCH (15:19)
[2024-11-20 15:34] VITALS: BMI 62.0
[2024-11-20] MEDS ORDERED: Vancomycin Dose by Levels Sliding Scale (Wt 71-99) FS SCH (18:45)
[2024-11-20] MEDS: Vancomycin 1.5 GM / NS 500ML VIAL-2-BAG IVPB SCH (19:02)
[2024-11-20 20:12] LABS: Anion Gap 16 mmol/L (10-20); BUN (Urea Nitrogen) 34 mg/dL (8.4-25.7); Calc. Creatinine Clearance 56 mL/min (70-130); Calcium 7.8 mg/dL (7.8-10.44); Carbon Dioxide 25 mmol/L (23-31); Chloride 108 mmol/L (98-107); Glucose 186 mg/dL (83-110); Potassium 4.2 mmol/L (3.5-5.1); Sodium 145 mmol/L (136-145)
[2024-11-20] MEDS: Carvedilol 6.25 MG TAB PO SCH (21:26)
[2024-11-20] MEDS: Famotidine/PF 20 mg/2ml Vial SLOW IVP SCH (21:27)
[2024-11-20 23:47] LABS: Protein, Urine Random Quant 411.0 mg/dL (1-14)
[2024-11-21 06:03] LABS: #Basophils Less than 0.03 10x3/uL (0.0-0.2); #Eosinophils 0.08 10x3/uL (0.0-0.7); #Monocytes 0.72 10x3/uL (0.11-0.59); #Neutrophils 8.50 10x3/uL (1.40-6.50); %Basophils 0.2 % (0.0-1.0); %Eosinophils 0.8 % (0.0-10.0); %Lymphocytes 11.3 % (21.0-51.0); %Monocytes 6.8 % (0.0-10.0); %Neutrophils 80.3 % (42.0-75.0); Hematocrit 36.0 % (42.0-52.0); Hemoglobin 11.9 g/dL (14.0-18.0); Mean Corpuscular Hemoglobin 33.5 pg (27.0-31.0); Mean Corpuscular Volume 101.4 fL (78.0-98.0); Platelet Count 121 10x3/uL (130-400); Red Blood Cell (RBC) Count 3.55 mill/uL (4.70-6.10); White Blood Cell (WBC) Count 10.57 10x3/uL (4.8-10.8)
[2024-11-21 06:16] LABS: Anion Gap 12 mmol/L (10-20); BUN (Urea Nitrogen) 36 mg/dL (8.4-25.7); Calc. Creatinine Clearance 55 mL/min (70-130); Calcium 7.8 mg/dL (7.8-10.44); Carbon Dioxide 23 mmol/L (23-31); Chloride 113 mmol/L (98-107); Glucose 158 mg/dL (83-110); Potassium 4.4 mmol/L (3.5-5.1); Sodium 144 mmol/L (136-145)
[2024-11-21] MEDS: Ergocalciferol 1.25 MG(50,000 UNITS) CAP PO SCH (12:09)
[2024-11-21 12:41] LABS: Vancomycin, Random 16.5 ug/mL (See Comment)
[2024-11-21] MEDS: Vancomycin 1 GM Premix Bag IVPB SCH (15:12)
[2024-11-21 16:02] VITALS: BMI 62.0
[2024-11-22 04:37] LABS: Hematocrit 34.3 % (42.0-52.0); Hemoglobin 10.9 g/dL (14.0-18.0); Mean Corpuscular Hemoglobin 33.1 pg (27.0-31.0); Mean Corpuscular Volume 104.3 fL (78.0-98.0); Platelet Count 138 10x3/uL (130-400); Red Blood Cell (RBC) Count 3.29 mill/uL (4.70-6.10); White Blood Cell (WBC) Count 11.23 10x3/uL (4.8-10.8)
[2024-11-22 05:20] LABS: Anion Gap 11 mmol/L (10-20); BUN (Urea Nitrogen) 38 mg/dL (8.4-25.7); Calc. Creatinine Clearance 51 mL/min (70-130); Calcium 7.7 mg/dL (7.8-10.44); Carbon Dioxide 20 mmol/L (23-31); Chloride 111 mmol/L (98-107); Glucose 227 mg/dL (83-110); Potassium 4.4 mmol/L (3.5-5.1); Sodium 138 mmol/L (136-145)
[2024-11-22] MEDS: Vancomycin 1 GM Premix Bag IVPB SCH (09:17)
[2024-11-23 03:44] LABS: #Basophils 0.05 10x3/uL (0.0-0.2); #Eosinophils 0.07 10x3/uL (0.0-0.7); #Monocytes 0.67 10x3/uL (0.11-0.59); #Neutrophils 8.06 10x3/uL (1.40-6.50); %Basophils 0.5 % (0.0-1.0); %Eosinophils 0.7 % (0.0-10.0); %Lymphocytes 10.4 % (21.0-51.0); %Monocytes 6.7 % (0.0-10.0); %Neutrophils 80.5 % (42.0-75.0); Hematocrit 30.3 % (42.0-52.0); Hemoglobin 9.9 g/dL (14.0-18.0); Mean Corpuscular Hemoglobin 33.1 pg (27.0-31.0); Mean Corpuscular Volume 101.3 fL (78.0-98.0); Platelet Count 156 10x3/uL (130-400); Red Blood Cell (RBC) Count 2.99 mill/uL (4.70-6.10); White Blood Cell (WBC) Count 10.01 10x3/uL (4.8-10.8)
[2024-11-23 04:12] LABS: Anion Gap 13 mmol/L (10-20); BUN (Urea Nitrogen) 36 mg/dL (8.4-25.7); Calc. Creatinine Clearance 62 mL/min (70-130); Calcium 7.7 mg/dL (7.8-10.44); Carbon Dioxide 18 mmol/L (23-31); Chloride 113 mmol/L (98-107); Glucose 196 mg/dL (83-110); Potassium 4.4 mmol/L (3.5-5.1); Sodium 140 mmol/L (136-145)
[2024-11-23] MEDS: Guaifenesin DM 100-10/5 ML UDCUP PO PRN (10:58)
[2024-11-23] MEDS: Carvedilol 6.25 MG TAB PO SCH (21:07)
[2024-11-24 05:08] LABS: #Basophils 0.05 10x3/uL (0.0-0.2); #Eosinophils 0.17 10x3/uL (0.0-0.7); #Monocytes 1.05 10x3/uL (0.11-0.59); #Neutrophils 7.56 10x3/uL (1.40-6.50); %Basophils 0.5 % (0.0-1.0); %Eosinophils 1.6 % (0.0-10.0); %Lymphocytes 13.8 % (21.0-51.0); %Monocytes 10.1 % (0.0-10.0); %Neutrophils 72.5 % (42.0-75.0); Hematocrit 35.4 % (42.0-52.0); Hemoglobin 11.3 g/dL (14.0-18.0); Mean Corpuscular Hemoglobin 32.7 pg (27.0-31.0); Mean Corpuscular Volume 102.3 fL (78.0-98.0); Platelet Count 145 10x3/uL (130-400); Red Blood Cell (RBC) Count 3.46 mill/uL (4.70-6.10); White Blood Cell (WBC) Count 10.43 10x3/uL (4.8-10.8)
[2024-11-24 05:41] LABS: Anion Gap 12 mmol/L (10-20); BUN (Urea Nitrogen) 31 mg/dL (8.4-25.7); Calc. Creatinine Clearance 54 mL/min (70-130); Calcium 8.0 mg/dL (7.8-10.44); Carbon Dioxide 19 mmol/L (23-31); Chloride 115 mmol/L (98-107); Glucose 194 mg/dL (83-110); Potassium 4.3 mmol/L (3.5-5.1); Sodium 142 mmol/L (136-145)
[2024-11-25 04:20] LABS: #Basophils 0.07 10x3/uL (0.0-0.2); #Eosinophils 0.08 10x3/uL (0.0-0.7); #Monocytes 1.10 10x3/uL (0.11-0.59); #Neutrophils 9.05 10x3/uL (1.40-6.50); %Basophils 0.6 % (0.0-1.0); %Eosinophils 0.7 % (0.0-10.0); %Lymphocytes 12.3 % (21.0-51.0); %Monocytes 9.1 % (0.0-10.0); %Neutrophils 74.7 % (42.0-75.0); Hematocrit 33.7 % (42.0-52.0); Hemoglobin 10.5 g/dL (14.0-18.0); Mean Corpuscular Hemoglobin 32.9 pg (27.0-31.0); Mean Corpuscular Volume 105.6 fL (78.0-98.0); Platelet Count 195 10x3/uL (130-400); Red Blood Cell (RBC) Count 3.19 mill/uL (4.70-6.10); White Blood Cell (WBC) Count 12.11 10x3/uL (4.8-10.8)
[2024-11-25 04:39] LABS: Anion Gap 11 mmol/L (10-20); BUN (Urea Nitrogen) 37 mg/dL (8.4-25.7); Calc. Creatinine Clearance 58 mL/min (70-130); Calcium 8.1 mg/dL (7.8-10.44); Carbon Dioxide 21 mmol/L (23-31); Chloride 111 mmol/L (98-107); Glucose 301 mg/dL (83-110); Potassium 4.4 mmol/L (3.5-5.1); Sodium 139 mmol/L (136-145)
[2024-11-25] MEDS: Amoxicillin/Potassium Clav 500 MG TAB PO SCH (08:37)
[2024-11-25] MEDS: Famotidine 20 MG TAB PO SCH (09:40)
[2024-11-25 16:08] VITALS: BP 152/66; TEMP 98
[2024-11-25] MEDS ORDERED: Insulin Glargine 30 UNITS/0.3 ML VIAL SC SCH (21:00)
[2024-11-26] MEDS ORDERED: Pantoprazole 40 MG DR.TAB PO SCH (09:00)
== END 2024-11-25 16:20 | DRG 871 ==
LOC: ERS 08:29 → IMCU/EMU 12:12 → 2SE 11-21 16:16 → T4-A 11-25 11:29
PROVIDERS: ADMIT Hospitalist; ATTEND Internal Medicine
PROC: 3E03329 Introduction of Other Anti-infective into Peripheral Vein, Percutaneous Approach (ICD-10-PCS; principal; 2024-11-20)
PROC: 4A033J1 Measurement of Arterial Pulse, Peripheral, Percutaneous Approach (ICD-10-PCS; 2024-11-20)
DX: A41.9 Sepsis, unspecified organism (principal); G93.41 Metabolic encephalopathy; I21.A1 Myocardial infarction type 2; N17.9 Acute kidney failure, unspecified; M62.82 Rhabdomyolysis; F17.200 Nicotine dependence, unspecified, uncomplicated; I10 Essential (primary) hypertension; E11.65 Type 2 diabetes mellitus with hyperglycemia; J44.9 Chronic obstructive pulmonary disease, unspecified; I73.9 Peripheral vascular disease, unspecified; Z98.890 Other specified postprocedural states; E87.5 Hyperkalemia; Z89.522 Acquired absence of left knee; Z89.521 Acquired absence of right knee; Z79.899 Other long term (current) drug therapy; Z79.4 Long term (current) use of insulin
CPT/HCPCS: 36415; 36416; 36556; 51701; 70450; 71045; 71275; 74177; 80048; 80053; 80202; 81001; 82010; 82306; 82550; 82570; 82805; 83605; 83690; 83735; 83970; 84156; 84443; 84484; 85025; 85027; 85610; 85730; 86141; 86704; 86706; 86803; 87040; 87077; 87086; 87340; 93005; 94640; 96374; 96375; 97139; J0613; J0692; J1308; J1642; J1644; J1815; J2185; J2543; J3373; J7030; J7120; J7611; J7620; J7626; Q9967

== ENCOUNTER 2024-12-07 12:45 | Inpatient (IN) | payer MEDICARE ==
[2024-12-07 13:53] LABS: #Basophils 0.11 10x3/uL (0.0-0.2); #Eosinophils 0.03 10x3/uL (0.0-0.7); #Monocytes 0.86 10x3/uL (0.11-0.59); #Neutrophils 12.83 10x3/uL (1.40-6.50); %Basophils 0.7 % (0.0-1.0); %Eosinophils 0.2 % (0.0-10.0); %Lymphocytes 11.3 % (21.0-51.0); %Monocytes 5.5 % (0.0-10.0); %Neutrophils 81.7 % (42.0-75.0); Hematocrit 47.7 % (42.0-52.0); Hemoglobin 14.7 g/dL (14.0-18.0); Mean Corpuscular Hemoglobin 33.6 pg (27.0-31.0); Mean Corpuscular Volume 109.2 fL (78.0-98.0); Platelet Count 232 10x3/uL (130-400); Red Blood Cell (RBC) Count 4.37 mill/uL (4.70-6.10); White Blood Cell (WBC) Count 15.70 10x3/uL (4.8-10.8)
[2024-12-07] MEDS ORDERED: CALCIUM GLUC 1 GM/NS 50 ML IV Bag ONE ×3 (14:10→15:34)
[2024-12-07] MEDS ORDERED: Furosemide 40 MG (4 mL) VIAL ONE (14:10)
[2024-12-07 14:17] LABS: ALT (SGPT) 18 U/L (Less than 45); AST (SGOT) 35 U/L (11-34); Albumin 3.1 g/dL (3.1-4.5); Alkaline Phosphatase 194 U/L (40-110); Anion Gap 14 mmol/L (10-20); BUN (Urea Nitrogen) 47 mg/dL (8.4-25.7); Bilirubin, Total 0.5 mg/dL (0.3-1.2); CK (CPK) 34 U/L (30-200); Calc. Creatinine Clearance 0 mL/min (70-130); Calcium 9.2 mg/dL (7.8-10.44); Carbon Dioxide 13 mmol/L (23-31); Chloride 118 mmol/L (98-107); Globulin 4.2 g/dL (2.4-3.5); Glucose 261 mg/dL (83-110); Potassium 7.2 mmol/L (3.5-5.1); Sodium 138 mmol/L (136-145); Troponin I 0.051 ng/mL (< 0.028)
[2024-12-07 14:33] LABS: Base Excess -16.0 mEq/L (-2.0 to +3.0); Calcium, Ionized (venous) 1.33 mmol/L (1.16-1.32); Chloride (VBG) 114 mmol/L (98-106); Hematocrit-VBG 45 % (42.0-52.0); Hemoglobin (Hb) 15.2 g/dL (12.6-17.4); Sodium 141 mmol/L (133-146)
[2024-12-07 14:36] LABS: Actual Bicarbonate (HCO3v) 13.2 mEq/L (22-28)
[2024-12-07 14:37] LABS: Potassium (VBG) 6.85 mmol/L (3.70-5.30)
[2024-12-07] MEDS ORDERED: Sodium Bicarb 50 MEQ/50 ML Abboject 8.4% SYRINGE ONE (15:33)
[2024-12-07] MEDS ORDERED: Dextrose 50% Abboject 50 ML SYRINGE ONE (15:34)
[2024-12-07] MEDS ORDERED: Senokot S 8.6-50 MG TAB PO PRN (16:35)
[2024-12-07 16:36] LABS: Hep B Core Total Ab NONREACTIVE (NonReactive); Hep B Core Total Index 0.13 S/CO (0-0.79)
[2024-12-07 16:42] LABS: Hep C IgG Ab NONREACTIVE S/CO (NonReactive); Hep C Index 0.08 S/CO (0-0.79)
[2024-12-07 16:47] LABS: HBSAB Concentration Less than 8.00 mIU/mL
[2024-12-07 16:48] LABS: Hep B Surf Ag NONREACTIVE S/CO (NonReactive)
[2024-12-07] MEDS: LOKELMA 10 GM PACKET PO SCH (16:59)
[2024-12-07 17:46] VITALS: BMI 23.8
[2024-12-07 18:27] LABS: Troponin I 0.058 ng/mL (< 0.028)
[2024-12-07 20:42] LABS: Troponin I 0.056 ng/mL (< 0.028)
[2024-12-07] MEDS: Insulin Glargine 30 UNITS/0.3 ML VIAL SC SCH (20:47)
[2024-12-08 06:05] LABS: #Basophils 0.08 10x3/uL (0.0-0.2); #Eosinophils 0.09 10x3/uL (0.0-0.7); #Monocytes 0.80 10x3/uL (0.11-0.59); #Neutrophils 6.95 10x3/uL (1.40-6.50); %Basophils 0.8 % (0.0-1.0); %Eosinophils 0.9 % (0.0-10.0); %Lymphocytes 20.3 % (21.0-51.0); %Monocytes 8.0 % (0.0-10.0); %Neutrophils 69.7 % (42.0-75.0); Hematocrit 38.5 % (42.0-52.0); Hemoglobin 12.2 g/dL (14.0-18.0); Mean Corpuscular Hemoglobin 33.0 pg (27.0-31.0); Mean Corpuscular Volume 104.1 fL (78.0-98.0); Platelet Count 157 10x3/uL (130-400); Red Blood Cell (RBC) Count 3.70 mill/uL (4.70-6.10); White Blood Cell (WBC) Count 9.97 10x3/uL (4.8-10.8)
[2024-12-08 06:27] LABS: Anion Gap 12 mmol/L (10-20); BUN (Urea Nitrogen) 15 mg/dL (8.4-25.7); Calc. Creatinine Clearance 44 mL/min (70-130); Calcium 8.0 mg/dL (7.8-10.44); Carbon Dioxide 24 mmol/L (23-31); Chloride 105 mmol/L (98-107); Glucose 126 mg/dL (83-110); Potassium 4.3 mmol/L (3.5-5.1); Sodium 137 mmol/L (136-145)
[2024-12-08] MEDS ORDERED: Carvedilol 3.125 MG TAB PO SCH (08:00)
[2024-12-08] MEDS ORDERED: Glucagon 1 MG/ML KIT IM PRN (08:55)
[2024-12-08] MEDS ORDERED: Dextrose 50% Abboject 50 ML SYRINGE SLOW IVP PRN (08:55)
[2024-12-08] MEDS ORDERED: Aspirin 81 mg Enteric Coated Tablet PO SCH (09:00)
[2024-12-08] MEDS: Insulin Glargine 30 UNITS/0.3 ML VIAL SC SCH (20:23)
[2024-12-09 05:24] LABS: Anion Gap 12 mmol/L (10-20); BUN (Urea Nitrogen) 26 mg/dL (8.4-25.7); Calc. Creatinine Clearance 33 mL/min (70-130); Calcium 7.8 mg/dL (7.8-10.44); Carbon Dioxide 23 mmol/L (23-31); Chloride 106 mmol/L (98-107); Glucose 121 mg/dL (83-110); Potassium 4.4 mmol/L (3.5-5.1); Sodium 137 mmol/L (136-145)
[2024-12-09] MEDS: Pantoprazole 40 MG DR.TAB PO SCH (09:54)
[2024-12-09 12:37] VITALS: BMI 24.5
[2024-12-09] MEDS: Melatonin 3 MG TAB PO PRN (20:28)
[2024-12-09] MEDS: HYDROcodone/Acetaminophen 5/325 mg Tablet PO SCH (20:43)
[2024-12-10 04:08] LABS: Anion Gap 13 mmol/L (10-20); BUN (Urea Nitrogen) 30 mg/dL (8.4-25.7); Calc. Creatinine Clearance 39 mL/min (70-130); Calcium 7.7 mg/dL (7.8-10.44); Carbon Dioxide 22 mmol/L (23-31); Chloride 107 mmol/L (98-107); Glucose 102 mg/dL (83-110); Potassium 4.4 mmol/L (3.5-5.1); Sodium 138 mmol/L (136-145)
[2024-12-10] MEDS ORDERED: Carvedilol 6.25 MG TAB PO SCH (09:00)
[2024-12-10] MEDS ORDERED: Non-Formulary Item 1 EACH (Polyethylene Glycol 3350 [Miralax] 119 GM Bottle) PO SCH (09:00)
[2024-12-10] MEDS ORDERED: Non-Formulary Item 1 EACH (Multivitamin [Multivitamin] 1 EACH Tablet) PO SCH (09:00)
[2024-12-10] MEDS ORDERED: Non-Formulary Item 1 EACH (Ascorbic Acid [Vitamin C] 1,000 MG Tablet) PO SCH (09:00)
[2024-12-10] MEDS: Multivit, Therapeutic 1 TAB PO SCH (09:32)
[2024-12-10] MEDS: Carvedilol 3.125 MG TAB PO SCH (09:33)
[2024-12-10] MEDS ORDERED: HYDROcodone/Acetaminophen 5/325 mg Tablet PO PRN (13:46)
[2024-12-10] MEDS: HYDROcodone/Acetaminophen 5/325 mg Tablet PO PRN (15:26)
[2024-12-11 00:29] VITALS: BP 153/68; TEMP 98
== END 2024-12-10 21:20 | DRG 682 ==
LOC: ERS 12:45 → CCU 15:53 → 2NO 12-08 14:24
PROVIDERS: ADMIT Internal Medicine; ATTEND Emergency Medicine
PROC: 5A1D70Z Performance of Urinary Filtration, Intermittent, Less than 6 Hours Per Day (ICD-10-PCS; principal; 2024-12-07)
DX: N17.9 Acute kidney failure, unspecified (principal); J96.01 Acute respiratory failure with hypoxia; E87.20 Acidosis, unspecified; I13.0 Hypertensive heart and chronic kidney disease with heart failure and stage 1 through stage 4 chronic kidney disease, or unspecified chronic kidney disease; E11.22 Type 2 diabetes mellitus with diabetic chronic kidney disease; N18.4 Chronic kidney disease, stage 4 (severe); I50.9 Heart failure, unspecified; F17.210 Nicotine dependence, cigarettes, uncomplicated; E87.5 Hyperkalemia; J44.9 Chronic obstructive pulmonary disease, unspecified; I25.10 Atherosclerotic heart disease of native coronary artery without angina pectoris; D63.1 Anemia in chronic kidney disease; F32.A Depression, unspecified; R53.81 Other malaise; E11.51 Type 2 diabetes mellitus with diabetic peripheral angiopathy without gangrene; Z89.612 Acquired absence of left leg above knee; Z89.611 Acquired absence of right leg above knee; Z93.3 Colostomy status; Z71.6 Tobacco abuse counseling; Z79.899 Other long term (current) drug therapy; Z79.4 Long term (current) use of insulin
CPT/HCPCS: 36415; 36416; 36556; 51702; 71045; 76770; 80048; 82550; 82805; 83605; 83880; 84484; 85025; 86704; 86706; 86803; 87340; 93005; 96374; 96375; 96376; 97139; J0613; J1815; J1940; J7030; J7999

== ENCOUNTER 2024-12-30 10:58 | Inpatient (IN) | payer MEDICARE ==
[2024-12-30 12:56] LABS: #Basophils 0.07 10x3/uL (0.0-0.2); #Eosinophils Less than 0.03 10x3/uL (0.0-0.7); #Monocytes 0.75 10x3/uL (0.11-0.59); #Neutrophils 10.03 10x3/uL (1.40-6.50); %Basophils 0.6 % (0.0-1.0); %Eosinophils 0.2 % (0.0-10.0); %Lymphocytes 12.2 % (21.0-51.0); %Monocytes 6.0 % (0.0-10.0); %Neutrophils 80.7 % (42.0-75.0); Hematocrit 44.5 % (42.0-52.0); Hemoglobin 13.5 g/dL (14.0-18.0); Mean Corpuscular Hemoglobin 32.1 pg (27.0-31.0); Mean Corpuscular Volume 105.7 fL (78.0-98.0); Platelet Count 260 10x3/uL (130-400); Red Blood Cell (RBC) Count 4.21 mill/uL (4.70-6.10); White Blood Cell (WBC) Count 12.42 10x3/uL (4.8-10.8)
[2024-12-30 13:11] LABS: Lipase 27 U/L (8-78)
[2024-12-30 13:13] LABS: Acetaminophen Less than 10 mcg/mL (Less than 10); Salicylate Less than 8.0 mg/dL (Less than 8.0)
[2024-12-30 13:48] LABS: ALT (SGPT) 22 U/L (Less than 45); AST (SGOT) 34 U/L (11-34); Albumin 2.5 g/dL (3.1-4.5); Alkaline Phosphatase 145 U/L (40-110); Anion Gap 17 mmol/L (10-20); BUN (Urea Nitrogen) 79 mg/dL (8.4-25.7); Bilirubin, Total 0.4 mg/dL (0.3-1.2); CK (CPK) 194 U/L (30-200); Calc. Creatinine Clearance 0 mL/min (70-130); Calcium 8.6 mg/dL (7.8-10.44); Carbon Dioxide 15 mmol/L (23-31); Chloride 113 mmol/L (98-107); Globulin 4.6 g/dL (2.4-3.5); Glucose 167 mg/dL (83-110); Potassium 5.7 mmol/L (3.5-5.1); Sodium 139 mmol/L (136-145)
[2024-12-30 15:13] LABS: Cocaine Metabolite Screen Negative (Negative); THC/Cannabinoid Screen Negative (Negative); Tricyclic Screen Negative (Negative)
[2024-12-30 15:24] LABS: CAUTI Indications for Culture Acute Hematuria; Glucose, Urine (Dipstick) Normal (Negative); Leukocyte 500 Leu/uL (Negative); Protein, Urine (Dipstick) 300 mg/dL (Neg-Trace); Specific Gravity, Urine 1.017 (1.002-1.036); WBC/HPF Greater than 50 HPF (0-3)
[2024-12-30 15:31] LABS: Bacteria/HPF 3+ HPF (None Seen)
[2024-12-30 15:32] LABS: Urine Culture Reflex Yes Yes
[2024-12-30] MEDS ORDERED: cefTRIAXone (ROCEPHIN) 1 GM VIAL ONE ×2 (15:49→18:58)
[2024-12-30] MEDS ORDERED: Ondansetron PF 4 MG/2 ML Vial IVP PRN (19:10)
[2024-12-30] MEDS ORDERED: Glucagon 1 MG/ML KIT IM PRN (19:41)
[2024-12-30] MEDS ORDERED: Dextrose 50% Abboject 50 ML SYRINGE SLOW IVP PRN (19:41)
[2024-12-30 20:36] VITALS: BMI 22.6
[2024-12-30] MEDS: Heparin 5,000 UNITS/ML VIAL SC SCH (21:34)
[2024-12-31 04:39] LABS: #Basophils 0.06 10x3/uL (0.0-0.2); #Eosinophils 0.07 10x3/uL (0.0-0.7); #Monocytes 0.63 10x3/uL (0.11-0.59); #Neutrophils 5.49 10x3/uL (1.40-6.50); %Basophils 0.7 % (0.0-1.0); %Eosinophils 0.9 % (0.0-10.0); %Lymphocytes 22.8 % (21.0-51.0); %Monocytes 7.7 % (0.0-10.0); %Neutrophils 67.5 % (42.0-75.0); Hematocrit 37.8 % (42.0-52.0); Hemoglobin 11.9 g/dL (14.0-18.0); Mean Corpuscular Hemoglobin 32.7 pg (27.0-31.0); Mean Corpuscular Volume 103.8 fL (78.0-98.0); Platelet Count 196 10x3/uL (130-400); Red Blood Cell (RBC) Count 3.64 mill/uL (4.70-6.10); White Blood Cell (WBC) Count 8.13 10x3/uL (4.8-10.8)
[2024-12-31 04:52] LABS: Anion Gap 12 mmol/L (10-20); BUN (Urea Nitrogen) 57 mg/dL (8.4-25.7); Calc. Creatinine Clearance 41 mL/min (70-130); Calcium 7.6 mg/dL (7.8-10.44); Carbon Dioxide 15 mmol/L (23-31); Chloride 116 mmol/L (98-107); Glucose 68 mg/dL (83-110); Potassium 4.2 mmol/L (3.5-5.1); Sodium 139 mmol/L (136-145)
[2024-12-31] MEDS: HYDROcodone/Acetaminophen 5/325 mg Tablet PO PRN (10:24)
[2024-12-31] MEDS: Carvedilol 6.25 MG TAB PO SCH (10:24)
[2024-12-31] MEDS: Pantoprazole 40 MG DR.TAB PO SCH (10:24)
[2024-12-31] MEDS: Insulin Glargine 30 UNITS/0.3 ML VIAL SC SCH (21:02)
[2025-01-01 06:12] LABS: #Basophils 0.05 10x3/uL (0.0-0.2); #Eosinophils 0.09 10x3/uL (0.0-0.7); #Monocytes 0.67 10x3/uL (0.11-0.59); #Neutrophils 5.39 10x3/uL (1.40-6.50); %Basophils 0.6 % (0.0-1.0); %Eosinophils 1.2 % (0.0-10.0); %Lymphocytes 20.4 % (21.0-51.0); %Monocytes 8.6 % (0.0-10.0); %Neutrophils 68.9 % (42.0-75.0); Hematocrit 38.5 % (42.0-52.0); Hemoglobin 11.9 g/dL (14.0-18.0); Mean Corpuscular Hemoglobin 32.7 pg (27.0-31.0); Mean Corpuscular Volume 105.8 fL (78.0-98.0); Platelet Count 186 10x3/uL (130-400); Red Blood Cell (RBC) Count 3.64 mill/uL (4.70-6.10); White Blood Cell (WBC) Count 7.81 10x3/uL (4.8-10.8)
[2025-01-01 06:35] LABS: Anion Gap 8 mmol/L (10-20); BUN (Urea Nitrogen) 44 mg/dL (8.4-25.7); Calc. Creatinine Clearance 46 mL/min (70-130); Calcium 7.6 mg/dL (7.8-10.44); Carbon Dioxide 17 mmol/L (23-31); Chloride 119 mmol/L (98-107); Glucose 146 mg/dL (83-110); Potassium 4.3 mmol/L (3.5-5.1); Sodium 140 mmol/L (136-145)
[2025-01-01] MEDS: Sodium Bicarbonate Tab 325 MG TAB PO SCH ×2 (10:08→16:06)
[2025-01-01 15:44] VITALS: BMI 22.6
[2025-01-01] MEDS: Acetaminophen 325 MG TAB PO PRN (21:22)
[2025-01-01] MEDS: Ketorolac Tromethamine 30 MG (1 mL) VIAL IVP SCH (22:59)
[2025-01-02 06:05] LABS: #Basophils 0.05 10x3/uL (0.0-0.2); #Eosinophils 0.06 10x3/uL (0.0-0.7); #Monocytes 0.48 10x3/uL (0.11-0.59); #Neutrophils 4.52 10x3/uL (1.40-6.50); %Basophils 0.8 % (0.0-1.0); %Eosinophils 0.9 % (0.0-10.0); %Lymphocytes 21.2 % (21.0-51.0); %Monocytes 7.4 % (0.0-10.0); %Neutrophils 69.2 % (42.0-75.0); Hematocrit 37.8 % (42.0-52.0); Hemoglobin 11.6 g/dL (14.0-18.0); Mean Corpuscular Hemoglobin 32.9 pg (27.0-31.0); Mean Corpuscular Volume 107.1 fL (78.0-98.0); Platelet Count 180 10x3/uL (130-400); Red Blood Cell (RBC) Count 3.53 mill/uL (4.70-6.10); White Blood Cell (WBC) Count 6.52 10x3/uL (4.8-10.8)
[2025-01-02 06:31] LABS: Anion Gap 12 mmol/L (10-20); BUN (Urea Nitrogen) 35 mg/dL (8.4-25.7); Calc. Creatinine Clearance 41 mL/min (70-130); Calcium 7.7 mg/dL (7.8-10.44); Carbon Dioxide 16 mmol/L (23-31); Chloride 117 mmol/L (98-107); Glucose 137 mg/dL (83-110); Potassium 4.5 mmol/L (3.5-5.1); Sodium 140 mmol/L (136-145)
[2025-01-02] MEDS: Melatonin 3 MG TAB PO SCH ×2 (18:04→21:26)
[2025-01-03 05:41] LABS: #Basophils 0.04 10x3/uL (0.0-0.2); #Eosinophils 0.06 10x3/uL (0.0-0.7); #Monocytes 0.47 10x3/uL (0.11-0.59); #Neutrophils 4.95 10x3/uL (1.40-6.50); %Basophils 0.6 % (0.0-1.0); %Eosinophils 0.9 % (0.0-10.0); %Lymphocytes 21.0 % (21.0-51.0); %Monocytes 6.7 % (0.0-10.0); %Neutrophils 70.2 % (42.0-75.0); Hematocrit 37.1 % (42.0-52.0); Hemoglobin 11.5 g/dL (14.0-18.0); Mean Corpuscular Hemoglobin 32.7 pg (27.0-31.0); Mean Corpuscular Volume 105.4 fL (78.0-98.0); Platelet Count 190 10x3/uL (130-400); Red Blood Cell (RBC) Count 3.52 mill/uL (4.70-6.10); White Blood Cell (WBC) Count 7.04 10x3/uL (4.8-10.8)
[2025-01-03 06:21] LABS: Anion Gap 13 mmol/L (10-20); BUN (Urea Nitrogen) 23 mg/dL (8.4-25.7); Calc. Creatinine Clearance 50 mL/min (70-130); Calcium 7.6 mg/dL (7.8-10.44); Carbon Dioxide 19 mmol/L (23-31); Chloride 112 mmol/L (98-107); Glucose 133 mg/dL (83-110); Potassium 4.3 mmol/L (3.5-5.1); Sodium 140 mmol/L (136-145)
[2025-01-04 06:09] LABS: #Basophils 0.04 10x3/uL (0.0-0.2); #Eosinophils 0.07 10x3/uL (0.0-0.7); #Monocytes 0.68 10x3/uL (0.11-0.59); #Neutrophils 5.12 10x3/uL (1.40-6.50); %Basophils 0.5 % (0.0-1.0); %Eosinophils 0.9 % (0.0-10.0); %Lymphocytes 22.4 % (21.0-51.0); %Monocytes 8.9 % (0.0-10.0); %Neutrophils 66.6 % (42.0-75.0); Hematocrit 36.4 % (42.0-52.0); Hemoglobin 11.3 g/dL (14.0-18.0); Mean Corpuscular Hemoglobin 32.8 pg (27.0-31.0); Mean Corpuscular Volume 105.8 fL (78.0-98.0); Platelet Count 179 10x3/uL (130-400); Red Blood Cell (RBC) Count 3.44 mill/uL (4.70-6.10); White Blood Cell (WBC) Count 7.68 10x3/uL (4.8-10.8)
[2025-01-04 06:29] LABS: Anion Gap 9 mmol/L (10-20); BUN (Urea Nitrogen) 14 mg/dL (8.4-25.7); Calc. Creatinine Clearance 58 mL/min (70-130); Calcium 7.6 mg/dL (7.8-10.44); Carbon Dioxide 20 mmol/L (23-31); Chloride 117 mmol/L (98-107); Glucose 144 mg/dL (83-110); Potassium 3.9 mmol/L (3.5-5.1); Sodium 142 mmol/L (136-145)
[2025-01-05 07:04] LABS: #Basophils 0.04 10x3/uL (0.0-0.2); #Eosinophils 0.09 10x3/uL (0.0-0.7); #Monocytes 0.60 10x3/uL (0.11-0.59); #Neutrophils 5.03 10x3/uL (1.40-6.50); %Basophils 0.5 % (0.0-1.0); %Eosinophils 1.2 % (0.0-10.0); %Lymphocytes 24.8 % (21.0-51.0); %Monocytes 7.7 % (0.0-10.0); %Neutrophils 64.9 % (42.0-75.0); Hematocrit 37.9 % (42.0-52.0); Hemoglobin 12.2 g/dL (14.0-18.0); Mean Corpuscular Hemoglobin 32.7 pg (27.0-31.0); Mean Corpuscular Volume 101.6 fL (78.0-98.0); Platelet Count 184 10x3/uL (130-400); Red Blood Cell (RBC) Count 3.73 mill/uL (4.70-6.10); White Blood Cell (WBC) Count 7.75 10x3/uL (4.8-10.8)
[2025-01-05 07:15] LABS: Anion Gap 12 mmol/L (10-20); BUN (Urea Nitrogen) 11 mg/dL (8.4-25.7); Calc. Creatinine Clearance 66 mL/min (70-130); Calcium 7.6 mg/dL (7.8-10.44); Carbon Dioxide 21 mmol/L (23-31); Chloride 111 mmol/L (98-107); Glucose 190 mg/dL (83-110); Potassium 3.6 mmol/L (3.5-5.1); Sodium 140 mmol/L (136-145)
[2025-01-05] MEDS: Diphenoxylate HCl/Atropine Tablet PO SCH ×2 (11:41→20:47)
[2025-01-06 05:41] LABS: Anion Gap 13 mmol/L (10-20); BUN (Urea Nitrogen) 11 mg/dL (8.4-25.7); Calc. Creatinine Clearance 61 mL/min (70-130); Calcium 7.5 mg/dL (7.8-10.44); Carbon Dioxide 21 mmol/L (23-31); Chloride 111 mmol/L (98-107); Glucose 169 mg/dL (83-110); Potassium 3.8 mmol/L (3.5-5.1); Sodium 141 mmol/L (136-145)
[2025-01-06 11:11] LABS: Campy jejuni + coli by PCR Negative (Negative); STEC Shiga Toxin 1+2 Negative (Negative); Salmonella spp. by PCR Negative (Negative); Shigella spp + EIEC by PCR Negative (Negative)
[2025-01-07] MEDS: Diphenoxylate HCl/Atropine Tablet PO SCH (08:17)
[2025-01-07 19:14] VITALS: TEMP 98
[2025-01-07 19:47] VITALS: BP 156/76
== END 2025-01-07 19:40 | disposition home or self-care (01) | DRG 871 ==
LOC: ERS 10:58 → OBSVTOIN 19:00 → 2NO 19:00 → T4-B 12-31 19:27
PROVIDERS: ADMIT Internal Medicine; ATTEND Internal Medicine
PROC: 3E03329 Introduction of Other Anti-infective into Peripheral Vein, Percutaneous Approach (ICD-10-PCS; principal; 2024-12-30)
PROC: 0T9B70Z Drainage of Bladder with Drainage Device, Via Natural or Artificial Opening (ICD-10-PCS; 2025-01-01)
DX: A41.9 Sepsis, unspecified organism (principal); J96.01 Acute respiratory failure with hypoxia; N17.9 Acute kidney failure, unspecified; N39.0 Urinary tract infection, site not specified; I24.89 Other forms of acute ischemic heart disease; E87.20 Acidosis, unspecified; E11.51 Type 2 diabetes mellitus with diabetic peripheral angiopathy without gangrene; E86.0 Dehydration; N18.30 Chronic kidney disease, stage 3 unspecified; E11.22 Type 2 diabetes mellitus with diabetic chronic kidney disease; J44.9 Chronic obstructive pulmonary disease, unspecified; E11.622 Type 2 diabetes mellitus with other skin ulcer; L98.412 Non-pressure chronic ulcer of buttock with fat layer exposed; N40.0 Benign prostatic hyperplasia without lower urinary tract symptoms; K21.9 Gastro-esophageal reflux disease without esophagitis; E87.5 Hyperkalemia; F32.A Depression, unspecified; B96.4 Proteus (mirabilis) (morganii) as the cause of diseases classified elsewhere; E87.8 Other disorders of electrolyte and fluid balance, not elsewhere classified; I71.40 Abdominal aortic aneurysm, without rupture, unspecified; Z98.890 Other specified postprocedural states; Z90.89 Acquired absence of other organs; Z93.3 Colostomy status; Z89.612 Acquired absence of left leg above knee; Z89.611 Acquired absence of right leg above knee; Z87.891 Personal history of nicotine dependence
CPT/HCPCS: 36415; 36416; 71045; 80048; 80053; 80306; 80307; 81001; 82140; 82550; 83605; 83690; 84484; 85025; 87040; 87077; 87086; 87186; 87324; 87428; 87449; 87505; 87633; 87798; 93005; 94640; 96361; 96365; 96375; 97139; J0692; J0696; J1644; J1815; J1885; J2270; J7030; J7620

== ENCOUNTER 2025-03-10 18:28 | Inpatient (IN) | payer MEDICARE ==
[2025-03-10 18:49] LABS: Actual Bicarbonate (HCO3a) 27.0 mEq/L (22-28); Analyzer IN Cardio ER; Base Excess (BEa) 1.8 mEq/L (-2.0 to +3.0); CO2 Tension 44.7 mmHg (35.0-45.0); Calcium, Ionized (arterial) 1.10 mmol/L (1.12-1.30); Hematocrit-ABG 36 % (42.0-52.0); Hemoglobin (Hb) 12.2 g/dL (14.0-18.0); O2 Tension (PaO2), arterial 188.2 mmHg (> 60.0); Potassium - ABG Lab 4.65 mmol/L (3.70-5.30); pH, Arterial 7.399 (7.35-7.45)
[2025-03-10 19:09] LABS: #Basophils 0.03 10x3/uL (0.0-0.2); #Eosinophils 0.08 10x3/uL (0.0-0.7); #Monocytes 0.66 10x3/uL (0.11-0.59); #Neutrophils 5.31 10x3/uL (1.40-6.50); %Basophils 0.4 % (0.0-1.0); %Eosinophils 1.0 % (0.0-10.0); %Lymphocytes 22.0 % (21.0-51.0); %Monocytes 8.4 % (0.0-10.0); %Neutrophils 67.8 % (42.0-75.0); Hematocrit 35.7 % (42.0-52.0); Hemoglobin 9.8 g/dL (14.0-18.0); Mean Corpuscular Hemoglobin 29.1 pg (27.0-31.0); Mean Corpuscular Volume 105.9 fL (78.0-98.0); Platelet Count 128 10x3/uL (130-400); Red Blood Cell (RBC) Count 3.37 mill/uL (4.70-6.10); White Blood Cell (WBC) Count 7.83 10x3/uL (4.8-10.8)
[2025-03-10 19:22] LABS: ALT (SGPT) 16 U/L (Less than 45); AST (SGOT) 18 U/L (11-34); Albumin 2.2 g/dL (3.1-4.5); Alkaline Phosphatase 93 U/L (40-110); Anion Gap 14 mmol/L (10-20); BUN (Urea Nitrogen) 33 mg/dL (8.4-25.7); Bilirubin, Total 0.3 mg/dL (0.3-1.2); Calc. Creatinine Clearance 0 mL/min (70-130); Calcium 7.6 mg/dL (7.8-10.44); Carbon Dioxide 25 mmol/L (23-31); Chloride 116 mmol/L (98-107); Globulin 2.8 g/dL (2.4-3.5); Glucose 67 mg/dL (83-110); Potassium 4.7 mmol/L (3.5-5.1); Sodium 150 mmol/L (136-145)
[2025-03-10] MEDS ORDERED: Cefepime 2 GM VIAL ONE (19:40)
[2025-03-10 19:50] LABS: Bacteria/HPF None Seen HPF (None Seen); Glucose, Urine (Dipstick) 50 mg/dL (Negative); Leukocyte 75 Leu/uL (Negative); Protein, Urine (Dipstick) 300 mg/dL (Neg-Trace); RBC/HPF Greater than 50 HPF (0-3); Specific Gravity, Urine 1.020 (1.002-1.036); WBC/HPF 21-50 HPF (0-3)
[2025-03-10 19:51] LABS: Urine Culture Reflex Yes Yes
[2025-03-10] MEDS ORDERED: Dextrose 50% Abboject 50 ML SYRINGE ONE (21:01)
[2025-03-10] MEDS ORDERED: Acetaminophen 325 MG TAB PER TUBE PRN (23:07)
[2025-03-10] MEDS ORDERED: Ondansetron PF 4 MG/2 ML Vial IVP PRN (23:07)
[2025-03-10] MEDS ORDERED: Fentanyl BOLUS 100 ML IVPB PRN (23:45)
[2025-03-10] MEDS ORDERED: Ventilator Sedation Protocol 1 EACH FS SCH (23:45)
[2025-03-10] MEDS ORDERED: DISCONTINUE PREVIOUS NARCOTIC PAIN MEDICATIONS AND BENZODIAZEPINES FS SCH (23:45)
[2025-03-10] MEDS ORDERED: Propofol BOLUS 1,000 MG/100 ML VIAL IV PRN (23:45)
[2025-03-11] MEDS ORDERED: Albuterol 200 PUFF (6.7GM INHALER) INH PRN (00:05)
[2025-03-11] MEDS: VANCOMYCIN 1.75 GM/350 ML Premix BAG IVPB SCH (00:23)
[2025-03-11] MEDS: Furosemide 40 MG (4 mL) VIAL SLOW IVP SCH (01:01)
[2025-03-11 05:30] LABS: #Basophils Less than 0.03 10x3/uL (0.0-0.2); #Eosinophils Less than 0.03 10x3/uL (0.0-0.7); #Monocytes 0.07 10x3/uL (0.11-0.59); #Neutrophils 7.38 10x3/uL (1.40-6.50); %Basophils 0.1 % (0.0-1.0); %Eosinophils 0.0 % (0.0-10.0); %Lymphocytes 7.2 % (21.0-51.0); %Monocytes 0.9 % (0.0-10.0); %Neutrophils 91.3 % (42.0-75.0); Hematocrit 39.0 % (42.0-52.0); Hemoglobin 11.3 g/dL (14.0-18.0); Mean Corpuscular Hemoglobin 30.0 pg (27.0-31.0); Mean Corpuscular Volume 103.4 fL (78.0-98.0); Platelet Count 118 10x3/uL (130-400); Red Blood Cell (RBC) Count 3.77 mill/uL (4.70-6.10); White Blood Cell (WBC) Count 8.08 10x3/uL (4.8-10.8)
[2025-03-11 05:38] LABS: Vancomycin, Random 18.9 ug/mL (See Comment)
[2025-03-11 05:45] LABS: ALT (SGPT) 14 U/L (Less than 45); AST (SGOT) 15 U/L (11-34); Albumin 2.1 g/dL (3.1-4.5); Alkaline Phosphatase 90 U/L (40-110); Anion Gap 16 mmol/L (10-20); BUN (Urea Nitrogen) 34 mg/dL (8.4-25.7); Bilirubin, Total 0.5 mg/dL (0.3-1.2); Calc. Creatinine Clearance 50 mL/min (70-130); Calcium 7.6 mg/dL (7.8-10.44); Carbon Dioxide 23 mmol/L (23-31); Chloride 113 mmol/L (98-107); Globulin 2.8 g/dL (2.4-3.5); Glucose 127 mg/dL (83-110); Potassium 5.0 mmol/L (3.5-5.1); Sodium 147 mmol/L (136-145)
[2025-03-11] MEDS: Albumin 25% 25 GM (100 mL) BOT IVPB SCH (05:45)
[2025-03-11 07:08] LABS: Actual Bicarbonate (HCO3a) 24.3 mEq/L (22-28); Base Excess (BEa) -0.3 mEq/L (-2.0 to +3.0); CO2 Tension 39.7 mmHg (35.0-45.0); Calcium, Ionized (arterial) 1.09 mmol/L (1.12-1.30); Hematocrit-ABG 36 % (42.0-52.0); Hemoglobin (Hb) 12.1 g/dL (14.0-18.0); O2 Tension (PaO2), arterial 81.3 mmHg (> 60.0); Potassium - ABG Lab 4.86 mmol/L (3.70-5.30); pH, Arterial 7.405 (7.35-7.45)
[2025-03-11 07:10] LABS: ALV-art Gradient 154.275 mmHg (0-20); Puncture Site LR
[2025-03-11] MEDS: Heparin 5,000 UNITS/ML VIAL SC SCH (09:19)
[2025-03-11] MEDS: Pantoprazole 40 MG VIAL IVP SCH (09:20)
[2025-03-11] MEDS: Mupirocin 1 GM TUBE TP SCH (09:20)
[2025-03-11 12:18] LABS: Anion Gap 16 mmol/L (10-20); BUN (Urea Nitrogen) 39 mg/dL (8.4-25.7); Calc. Creatinine Clearance 48 mL/min (70-130); Calcium 8.0 mg/dL (7.8-10.44); Carbon Dioxide 23 mmol/L (23-31); Chloride 116 mmol/L (98-107); Glucose 155 mg/dL (83-110); Potassium 5.0 mmol/L (3.5-5.1); Sodium 150 mmol/L (136-145)
[2025-03-11] MEDS ORDERED: Glucagon 1 MG/ML KIT IM PRN (12:47)
[2025-03-11] MEDS ORDERED: Dextrose 50% Abboject 50 ML SYRINGE SLOW IVP PRN (12:47)
[2025-03-11] MEDS: Furosemide 20 MG (2 mL) VIAL SLOW IVP SCH (14:29)
[2025-03-11] MEDS: hydrALAZINE 20 MG/ML VIAL SLOW IVP PRN (16:01)
[2025-03-11] MEDS ORDERED: Vancomycin 1.25 GM / NS 250 ML VIAL-2-BAG IVPB SCH (20:00)
[2025-03-12 04:11] LABS: #Basophils Less than 0.03 10x3/uL (0.0-0.2); #Eosinophils Less than 0.03 10x3/uL (0.0-0.7); #Monocytes 0.72 10x3/uL (0.11-0.59); #Neutrophils 6.62 10x3/uL (1.40-6.50); %Basophils 0.2 % (0.0-1.0); %Eosinophils 0.0 % (0.0-10.0); %Lymphocytes 21.3 % (21.0-51.0); %Monocytes 7.7 % (0.0-10.0); %Neutrophils 70.4 % (42.0-75.0); Hematocrit 37.6 % (42.0-52.0); Hemoglobin 11.1 g/dL (14.0-18.0); Mean Corpuscular Hemoglobin 28.8 pg (27.0-31.0); Mean Corpuscular Volume 97.7 fL (78.0-98.0); Platelet Count 167 10x3/uL (130-400); Red Blood Cell (RBC) Count 3.85 mill/uL (4.70-6.10); White Blood Cell (WBC) Count 9.40 10x3/uL (4.8-10.8)
[2025-03-12 04:32] LABS: ALT (SGPT) 12 U/L (Less than 45); AST (SGOT) 16 U/L (11-34); Albumin 2.1 g/dL (3.1-4.5); Alkaline Phosphatase 78 U/L (40-110); Anion Gap 15 mmol/L (10-20); BUN (Urea Nitrogen) 44 mg/dL (8.4-25.7); Bilirubin, Total 0.6 mg/dL (0.3-1.2); Calc. Creatinine Clearance 47 mL/min (70-130); Calcium 7.8 mg/dL (7.8-10.44); Carbon Dioxide 25 mmol/L (23-31); Chloride 115 mmol/L (98-107); Globulin 2.6 g/dL (2.4-3.5); Glucose 143 mg/dL (83-110); Potassium 4.2 mmol/L (3.5-5.1); Sodium 151 mmol/L (136-145)
[2025-03-12 07:31] LABS: Actual Bicarbonate (HCO3a) 24.7 mEq/L (22-28); Base Excess (BEa) 1.5 mEq/L (-2.0 to +3.0); CO2 Tension 34.2 mmHg (35.0-45.0); Calcium, Ionized (arterial) 1.11 mmol/L (1.12-1.30); Hematocrit-ABG 36 % (42.0-52.0); Hemoglobin (Hb) 12.2 g/dL (14.0-18.0); O2 Tension (PaO2), arterial 96.3 mmHg (> 60.0); Potassium - ABG Lab 4.03 mmol/L (3.70-5.30); pH, Arterial 7.476 (7.35-7.45)
[2025-03-12 07:34] LABS: Puncture Site Right Radial artery
[2025-03-13 04:36] LABS: #Basophils Less than 0.03 10x3/uL (0.0-0.2); #Eosinophils 0.06 10x3/uL (0.0-0.7); #Monocytes 0.47 10x3/uL (0.11-0.59); #Neutrophils 6.62 10x3/uL (1.40-6.50); %Basophils 0.3 % (0.0-1.0); %Eosinophils 0.8 % (0.0-10.0); %Lymphocytes 8.5 % (21.0-51.0); %Monocytes 6.0 % (0.0-10.0); %Neutrophils 84.0 % (42.0-75.0); Hematocrit 37.8 % (42.0-52.0); Hemoglobin 11.6 g/dL (14.0-18.0); Mean Corpuscular Hemoglobin 29.7 pg (27.0-31.0); Mean Corpuscular Volume 96.9 fL (78.0-98.0); Platelet Count 150 10x3/uL (130-400); Red Blood Cell (RBC) Count 3.90 mill/uL (4.70-6.10); White Blood Cell (WBC) Count 7.87 10x3/uL (4.8-10.8)
[2025-03-13 05:07] LABS: Chloride 117 mmol/L (98-107)
[2025-03-13 05:08] LABS: Albumin 2.1 g/dL (3.1-4.5); Calcium 8.0 mg/dL (7.8-10.44); Glucose 144 mg/dL (83-110)
[2025-03-13 05:09] LABS: Globulin 3.1 g/dL (2.4-3.5)
[2025-03-13 05:10] LABS: Anion Gap 20 mmol/L (10-20); Carbon Dioxide 21 mmol/L (23-31)
[2025-03-13 05:11] LABS: Alkaline Phosphatase 78 U/L (40-110); Bilirubin, Total 0.8 mg/dL (0.3-1.2)
[2025-03-13 05:12] LABS: BUN (Urea Nitrogen) 37 mg/dL (8.4-25.7); Calc. Creatinine Clearance 50 mL/min (70-130)
[2025-03-13 05:14] LABS: ALT (SGPT) 13 U/L (Less than 45)
[2025-03-13 05:16] LABS: AST (SGOT) 36 U/L (11-34); Potassium 4.9 mmol/L (3.5-5.1); Sodium 153 mmol/L (136-145)
[2025-03-13 06:44] LABS: Actual Bicarbonate (HCO3a) 24.1 mEq/L (22-28); Base Excess (BEa) 0.8 mEq/L (-2.0 to +3.0); CO2 Tension 34.4 mmHg (35.0-45.0); Calcium, Ionized (arterial) 1.13 mmol/L (1.12-1.30); Hematocrit-ABG 37 % (42.0-52.0); Hemoglobin (Hb) 12.5 g/dL (14.0-18.0); O2 Tension (PaO2), arterial 106.1 mmHg (> 60.0); Potassium - ABG Lab 3.66 mmol/L (3.70-5.30); pH, Arterial 7.464 (7.35-7.45)
[2025-03-13 06:47] LABS: Puncture Site Right Radial artery
[2025-03-13] MEDS: Losartan 25 MG TAB PO SCH (10:07)
[2025-03-14 03:32] LABS: #Basophils 0.03 10x3/uL (0.0-0.2); #Eosinophils 0.04 10x3/uL (0.0-0.7); #Monocytes 0.35 10x3/uL (0.11-0.59); #Neutrophils 6.23 10x3/uL (1.40-6.50); %Basophils 0.4 % (0.0-1.0); %Eosinophils 0.6 % (0.0-10.0); %Lymphocytes 3.3 % (21.0-51.0); %Monocytes 5.1 % (0.0-10.0); %Neutrophils 90.0 % (42.0-75.0); Hematocrit 42.4 % (42.0-52.0); Hemoglobin 12.0 g/dL (14.0-18.0); Mean Corpuscular Hemoglobin 28.8 pg (27.0-31.0); Mean Corpuscular Volume 101.7 fL (78.0-98.0); Platelet Count 151 10x3/uL (130-400); Red Blood Cell (RBC) Count 4.17 mill/uL (4.70-6.10); White Blood Cell (WBC) Count 6.92 10x3/uL (4.8-10.8)
[2025-03-14 04:12] LABS: Anisocytosis SLIGHT = 6-15 cells HPF (0-5); Macrocytosis SLIGHT = 6-15 cells HPF (0-5); Platelet Adequacy Comment Platelets Normal; Polychromasia SLIGHT = 2-3 cells HPF (0-2)
[2025-03-14 04:25] LABS: Anion Gap 15 mmol/L (10-20); BUN (Urea Nitrogen) 37 mg/dL (8.4-25.7); Calc. Creatinine Clearance 56 mL/min (70-130); Calcium 8.2 mg/dL (7.8-10.44); Carbon Dioxide 25 mmol/L (23-31); Chloride 116 mmol/L (98-107); Glucose 106 mg/dL (83-110); Potassium 3.8 mmol/L (3.5-5.1); Sodium 152 mmol/L (136-145)
[2025-03-14] MEDS: FLU (Fluad Triv) 25-26 (65UP)PF 45 MCG/0.5 ML Syringe IM ONE (08:21)
[2025-03-14] MEDS: Losartan 25 MG TAB PO SCH (08:24)
[2025-03-14 16:53] LABS: Sodium 149 mmol/L (136-145)
[2025-03-15 04:40] LABS: #Basophils Less than 0.03 10x3/uL (0.0-0.2); #Eosinophils 0.03 10x3/uL (0.0-0.7); #Monocytes 0.35 10x3/uL (0.11-0.59); #Neutrophils 4.72 10x3/uL (1.40-6.50); %Basophils 0.4 % (0.0-1.0); %Eosinophils 0.6 % (0.0-10.0); %Lymphocytes 4.8 % (21.0-51.0); %Monocytes 6.5 % (0.0-10.0); %Neutrophils 87.1 % (42.0-75.0); Hematocrit 39.3 % (42.0-52.0); Hemoglobin 11.2 g/dL (14.0-18.0); Mean Corpuscular Hemoglobin 28.9 pg (27.0-31.0); Mean Corpuscular Volume 101.3 fL (78.0-98.0); Platelet Count 138 10x3/uL (130-400); Red Blood Cell (RBC) Count 3.88 mill/uL (4.70-6.10); White Blood Cell (WBC) Count 5.41 10x3/uL (4.8-10.8)
[2025-03-15 04:50] LABS: Anion Gap 13 mmol/L (10-20); BUN (Urea Nitrogen) 32 mg/dL (8.4-25.7); Calc. Creatinine Clearance 62 mL/min (70-130); Calcium 8.0 mg/dL (7.8-10.44); Carbon Dioxide 26 mmol/L (23-31); Chloride 111 mmol/L (98-107); Glucose 165 mg/dL (83-110); Potassium 4.0 mmol/L (3.5-5.1); Sodium 146 mmol/L (136-145)
[2025-03-15 04:51] LABS: CRP, High Sensitivity at Bryan 6.74 mg/dL (< or = 0.5)
[2025-03-15] MEDS: Vancomycin 1.5 GM / NS 500ML VIAL-2-BAG IVPB SCH (14:56)
[2025-03-15] MEDS: Melatonin 3 MG TAB PO SCH (20:46)
[2025-03-15] MEDS ORDERED: Vancomycin 1 GM in Premix 1 BAG IVPB SCH (21:00)
[2025-03-16 03:06] VITALS: BP 175/75
[2025-03-16 04:22] LABS: #Basophils Less than 0.03 10x3/uL (0.0-0.2); #Eosinophils Less than 0.03 10x3/uL (0.0-0.7); #Monocytes 0.30 10x3/uL (0.11-0.59); #Neutrophils 3.08 10x3/uL (1.40-6.50); %Basophils 0.5 % (0.0-1.0); %Eosinophils 0.5 % (0.0-10.0); %Lymphocytes 9.9 % (21.0-51.0); %Monocytes 7.8 % (0.0-10.0); %Neutrophils 80.5 % (42.0-75.0); Hematocrit 41.1 % (42.0-52.0); Hemoglobin 11.8 g/dL (14.0-18.0); Mean Corpuscular Hemoglobin 28.8 pg (27.0-31.0); Mean Corpuscular Volume 100.2 fL (78.0-98.0); Platelet Count 121 10x3/uL (130-400); Red Blood Cell (RBC) Count 4.10 mill/uL (4.70-6.10); White Blood Cell (WBC) Count 3.83 10x3/uL (4.8-10.8)
[2025-03-16 04:26] LABS: Anion Gap 17 mmol/L (10-20); BUN (Urea Nitrogen) 29 mg/dL (8.4-25.7); Calc. Creatinine Clearance 55 mL/min (70-130); Calcium 7.9 mg/dL (7.8-10.44); Carbon Dioxide 20 mmol/L (23-31); Chloride 111 mmol/L (98-107); Glucose 167 mg/dL (83-110); Potassium 3.6 mmol/L (3.5-5.1); Sodium 144 mmol/L (136-145)
[2025-03-16 04:27] LABS: CRP, High Sensitivity at Bryan 7.79 mg/dL (< or = 0.5)
[2025-03-16 04:30] LABS: Vancomycin, Random 18.1 ug/mL (See Comment)
[2025-03-16 04:55] LABS: Burr Cells SLIGHT = 2-5 cells HPF (0-1); Platelet Adequacy Comment Platelets Decreased; Polychromasia SLIGHT = 2-3 cells HPF (0-2)
[2025-03-16] MEDS ORDERED: Vancomycin 1.25 GM / NS 250 ML VIAL-2-BAG IVPB SCH (10:00)
[2025-03-16] MEDS: Vancomycin 1.5 GM / NS 500ML VIAL-2-BAG IVPB SCH (10:30)
[2025-03-16] MEDS: Sodium Chloride 3% (15 ML) NEB NEB SCH (12:08)
[2025-03-16 13:59] VITALS: BMI 27.6
[2025-03-16] MEDS: Carvedilol 3.125 MG TAB PO SCH (16:18)
[2025-03-17 04:47] LABS: #Basophils Less than 0.03 10x3/uL (0.0-0.2); #Eosinophils 0.03 10x3/uL (0.0-0.7); #Monocytes 0.38 10x3/uL (0.11-0.59); #Neutrophils 9.73 10x3/uL (1.40-6.50); %Basophils 0.1 % (0.0-1.0); %Eosinophils 0.3 % (0.0-10.0); %Lymphocytes 3.8 % (21.0-51.0); %Monocytes 3.6 % (0.0-10.0); %Neutrophils 91.7 % (42.0-75.0); Hematocrit 38.9 % (42.0-52.0); Hemoglobin 11.4 g/dL (14.0-18.0); Mean Corpuscular Hemoglobin 29.1 pg (27.0-31.0); Mean Corpuscular Volume 99.2 fL (78.0-98.0); Platelet Count 126 10x3/uL (130-400); Red Blood Cell (RBC) Count 3.92 mill/uL (4.70-6.10); White Blood Cell (WBC) Count 10.60 10x3/uL (4.8-10.8)
[2025-03-17 04:58] LABS: Vancomycin, Random 24.8 ug/mL (See Comment)
[2025-03-17 05:00] LABS: Anion Gap 12 mmol/L (10-20); BUN (Urea Nitrogen) 32 mg/dL (8.4-25.7); Calc. Creatinine Clearance 60 mL/min (70-130); Calcium 8.2 mg/dL (7.8-10.44); Carbon Dioxide 25 mmol/L (23-31); Chloride 111 mmol/L (98-107); Glucose 89 mg/dL (83-110); Potassium 3.5 mmol/L (3.5-5.1); Sodium 144 mmol/L (136-145)
[2025-03-17 05:01] LABS: CRP, High Sensitivity at Bryan 7.66 mg/dL (< or = 0.5)
[2025-03-17] MEDS ORDERED: Vancomycin Dose by Levels Sliding Scale (Wt 71-99) FS SCH (07:45)
[2025-03-17] MEDS: Furosemide 40 MG (4 mL) VIAL SLOW IVP SCH (09:50)
[2025-03-18 05:06] LABS: #Basophils Less than 0.03 10x3/uL (0.0-0.2); #Eosinophils Less than 0.03 10x3/uL (0.0-0.7); #Monocytes 0.39 10x3/uL (0.11-0.59); #Neutrophils 11.34 10x3/uL (1.40-6.50); %Basophils 0.1 % (0.0-1.0); %Eosinophils 0.0 % (0.0-10.0); %Lymphocytes 4.6 % (21.0-51.0); %Monocytes 3.1 % (0.0-10.0); %Neutrophils 91.3 % (42.0-75.0); Hematocrit 36.8 % (42.0-52.0); Hemoglobin 10.6 g/dL (14.0-18.0); Mean Corpuscular Hemoglobin 29.0 pg (27.0-31.0); Mean Corpuscular Volume 100.8 fL (78.0-98.0); Platelet Count 121 10x3/uL (130-400); Red Blood Cell (RBC) Count 3.65 mill/uL (4.70-6.10); White Blood Cell (WBC) Count 12.42 10x3/uL (4.8-10.8)
[2025-03-18 05:25] LABS: CRP, High Sensitivity at Bryan 24.04 mg/dL (< or = 0.5)
[2025-03-18 05:29] LABS: Anion Gap 11 mmol/L (10-20); BUN (Urea Nitrogen) 40 mg/dL (8.4-25.7); Calc. Creatinine Clearance 37 mL/min (70-130); Calcium 8.4 mg/dL (7.8-10.44); Carbon Dioxide 26 mmol/L (23-31); Chloride 109 mmol/L (98-107); Glucose 227 mg/dL (83-110); Potassium 3.9 mmol/L (3.5-5.1); Sodium 142 mmol/L (136-145)
[2025-03-18] MEDS: Linezolid 600 MG in Premix 1 BAG IVPB SCH (09:44)
[2025-03-18 12:57] VITALS: BMI 73.7
[2025-03-18] MEDS ORDERED: Scopolamine 1 mg/72 hour Patch TD PRN (13:14)
[2025-03-19 08:42] VITALS: TEMP 98.3
== END 2025-03-19 09:17 | disposition expired | DRG 208 ==
LOC: ERS 18:28 → CCU 23:01
PROVIDERS: ADMIT Internal Medicine; ATTEND Internal Medicine
PROC: 4A133R1 Monitoring of Arterial Saturation, Peripheral, Percutaneous Approach (ICD-10-PCS; 2025-03-10)
PROC: 0BH17EZ Insertion of Endotracheal Airway into Trachea, Via Natural or Artificial Opening (ICD-10-PCS; 2025-03-10)
PROC: 0DH67UZ Insertion of Feeding Device into Stomach, Via Natural or Artificial Opening (ICD-10-PCS; 2025-03-10)
PROC: 5A1945Z Respiratory Ventilation, 24-96 Consecutive Hours (ICD-10-PCS; principal; 2025-03-11)
PROC: 30233J1 Transfusion of Nonautologous Serum Albumin into Peripheral Vein, Percutaneous Approach (ICD-10-PCS; 2025-03-11)
PROC: 3E02340 Introduction of Influenza Vaccine into Muscle, Percutaneous Approach (ICD-10-PCS; 2025-03-14)
PROC: 3E03329 Introduction of Other Anti-infective into Peripheral Vein, Percutaneous Approach (ICD-10-PCS; 2025-03-15)
DX: J18.9 Pneumonia, unspecified organism (principal); G93.41 Metabolic encephalopathy; I50.33 Acute on chronic diastolic (congestive) heart failure; L89.503 Pressure ulcer of unspecified ankle, stage 3; J96.01 Acute respiratory failure with hypoxia; I13.0 Hypertensive heart and chronic kidney disease with heart failure and stage 1 through stage 4 chronic kidney disease, or unspecified chronic kidney disease; N17.9 Acute kidney failure, unspecified; E87.0 Hyperosmolality and hypernatremia; N39.0 Urinary tract infection, site not specified; E87.1 Hypo-osmolality and hyponatremia; J44.1 Chronic obstructive pulmonary disease with (acute) exacerbation; Z66 Do not resuscitate; Z51.5 Encounter for palliative care; Z98.890 Other specified postprocedural states; Z88.8 Allergy status to other drugs, medicaments and biological substances; Z91.018 Allergy to other foods; N18.2 Chronic kidney disease, stage 2 (mild); K21.9 Gastro-esophageal reflux disease without esophagitis; N40.0 Benign prostatic hyperplasia without lower urinary tract symptoms; E11.51 Type 2 diabetes mellitus with diabetic peripheral angiopathy without gangrene; R00.1 Bradycardia, unspecified; E11.649 Type 2 diabetes mellitus with hypoglycemia without coma; E78.5 Hyperlipidemia, unspecified; D69.6 Thrombocytopenia, unspecified; E88.09 Other disorders of plasma-protein metabolism, not elsewhere classified; D63.1 Anemia in chronic kidney disease; Z79.899 Other long term (current) drug therapy; R53.81 Other malaise; E86.1 Hypovolemia; Y95 Nosocomial condition; Z79.4 Long term (current) use of insulin; Z79.82 Long term (current) use of aspirin; Z79.84 Long term (current) use of oral hypoglycemic drugs; Z23 Encounter for immunization
CPT/HCPCS: 0439T; 31500; 36415; 36416; 36600; 51702; 71045; 74018; 80048; 80053; 80202; 81001; 82805; 83605; 83880; 84145; 84443; 84484; 85025; 86141; 87040; 87070; 87086; 87205; 87428; 90653; 93005; 93306; 94002; 94003; 94640; 96365; 96366; 96368; 96375; 97139; 99292; J0360; J0692; J1120; J1250; J1644; J1815; J1940; J2020; J2185; J2272; J2470; J2543; J2704; J2919; J3375; J7030; J7070; J7999; P9047; Q9957